=== PATIENT | male | born 1960 | race Caucasian/White ===

== ENCOUNTER 2016-07-19 06:12 | Emergency (ER) | payer MEDICARE, MEDICAID ==
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
[2016-07-19] MEDS ORDERED: LORAZEPAM INJ 2 MG/1 ML VIAL IM ONE (07:14)
[2016-07-19] MEDS ORDERED: DIPHENHYDRAMINE HCL 50 MG/ML VIAL IM ONE (07:14)
[2016-07-19 07:20] LABS: ABSOLUTE BASOPHILS # (AUTO) 0.1 10^3/uL (0.0-0.2); ABSOLUTE EOSINOPHILS # (AUTO) 0.1 10^3/uL (0.0-0.6); ABSOLUTE LYMPHOCYTES (AUTO) 1.6 10^3/uL (0.5-4.7); ABSOLUTE MONOCYTES (AUTO) 0.7 10^3/uL (0.1-1.4); ABSOLUTE NEUT (AUTO) 7.4 10^3/uL (1.7-8.2); BASOPHILS % (AUTO) 0.9 % (0-2); EOSINOPHILS % (AUTO) 1.4 % (0-6); HEMATOCRIT 48.5 % (37.9-51.0); HEMOGLOBIN 15.6 g/dL (13.5-17.0); HGB HCT DIFFERENCE -1.7; LYMPHOCYTES % (AUTO) 16.4 % (13-45); MEAN CORPUSCULAR HEMOGLOBIN 24.1 pg (27.0-33.4); MEAN CORPUSCULAR HGB CONC 32.2 g/dL (32.0-36.0); MEAN CORPUSCULAR VOLUME 75 fl (80-97); MONOCYTES % (AUTO) 6.5 % (3-13); RED BLOOD COUNT 6.48 10^6/uL (4.35-5.55); RED CELL DISTRIBUTION WIDTH 20.3 % (11.5-14.0); SEGMENTED NEUTROPHILS % (AUTO) 74.8 % (42-78); WHITE BLOOD COUNT 9.9 10^3/uL (4.0-10.5)
[2016-07-19 07:28] LABS: ALANINE AMINOTRANSFERASE 31 U/L (21-72); ALBUMIN 4.2 g/dL (3.5-5.0); ALKALINE PHOSPHATASE 273 U/L (38-126); ANION GAP 14 (5-19); ASPARTATE AMINO TRANSFERASE 42 U/L (17-59); BILIRUBIN,DIRECT 0.6 mg/dL (0.0-0.4); BLOOD UREA NITROGEN 23 mg/dL (7-20); CALCIUM 10.1 mg/dL (8.4-10.2); CARBON DIOXIDE 23 mmol/L (22-30); CHLORIDE 103 mmol/L (98-107); GLUCOSE 85 mg/dL (75-110); POTASSIUM 4.3 mmol/L (3.6-5.0); TOTAL PROTEIN 7.7 g/dL (6.3-8.2)
[2016-07-19 07:29] LABS: ALCOHOL < 10 mg/dL (NONE DETECTED)
[2016-07-19 07:49] LABS: APPEARANCE,URINE CLEAR; BILIRUBIN,URINE NEGATIVE (NEGATIVE); GLUCOSE, URINE NEGATIVE (NEGATIVE); KETONES,URINE NEGATIVE (NEGATIVE); LEUKOCYTE ESTERASE,URINE NEGATIVE (NEGATIVE); NITRITE,URINE NEGATIVE (NEGATIVE); PROTEIN,URINE >=500 mg/dL (NEGATIVE); URINE SPECIFIC GRAVITY 1.007; UROBILINOGEN,URINE NEGATIVE mg/dL (<2.0)
[2016-07-19 08:07] LABS: URINE BARBITURATES SCREEN NEGATIVE; URINE METHADONE SCREEN NEGATIVE; URINE OPIATES LOW NEGATIVE; URINE PHENCYCLIDINE SCREEN NEGATIVE
[2016-07-19] MEDS ORDERED: HALOPERIDOL LACTATE INJ 5 MG/1 ML VIAL IM ONE (09:27)
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
--- NOTE | 2016-07-19 13:38 | EKG REPORT ---
SEVERITY:- ABNORMAL ECG - SINUS RHYTHM PROBABLE LEFT ATRIAL ABNORMALITY LEFT ANTERIOR FASCICULAR BLOCK LEFT VENTRICULAR HYPERTROPHY : Confirmed by: Nasir Hernandez 19-Jul-2016 13:37:44
[2016-07-19] MEDS ORDERED: ACETAMINOPHEN 325 MG TABLET PO ONE (22:48)
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
--- NOTE | 2016-07-20 14:30 | ER Document Report ---
Doctor's Note Notes: 07/20/16 21:34 Cellulitis will be treated with keflex. Patient has no hallucinations at present, no desire to harm himself. Patient will be discharged to home.
[2016-07-20 15:52] VITALS: BP 168/87
== END 2016-07-20 16:15 | disposition home or self-care (01) ==
LOC: ER 06:12
DX: F15.10 Other stimulant abuse, uncomplicated (principal); R45.1 Restlessness and agitation; L97.229 Non-pressure chronic ulcer of left calf with unspecified severity; L03.116 Cellulitis of left lower limb; I87.8 Other specified disorders of veins; F17.210 Nicotine dependence, cigarettes, uncomplicated
CPT/HCPCS: 93005; 99285; 96372; 36415; 80307 ×4; 85025; 80053; 81001; 93010; A9270; J1200; J1630; J2060; 87040

== ENCOUNTER 2016-07-25 23:26 | Emergency (ER) | payer MEDICARE, MEDICAID ==
[2016-07-26] MEDS ORDERED: ACETAMINOPHEN 325 MG TABLET PO ONE (01:27)
[2016-07-26] MEDS ORDERED: OXYCODONE-ACETAMINOPHEN 5-325 MG TABLET PO ONE (02:16)
[2016-07-26 02:42] VITALS: BP 157/115
[2016-07-26] MEDS ORDERED: SULFAMETHOXAZOLE/TRIMETHOPRIM 800-160 MG TABLET ONE (07:08)
[2016-07-27 10:42] LABS: BLOOD UREA NITROGEN 33 mg/dL (7-20); CALCIUM 9.4 mg/dL (8.4-10.2); CREATININE RESULT 1.52 mg/dL (0.52-1.25); GLUCOSE 88 mg/dL (75-110)
[2016-07-27 10:43] LABS: ALBUMIN 3.6 g/dL (3.5-5.0); ANION GAP 9 (5-19); CARBON DIOXIDE 21 mmol/L (22-30); CHLORIDE 109 mmol/L (98-107)
[2016-07-27 10:44] LABS: ALANINE AMINOTRANSFERASE 24 U/L (21-72); ALKALINE PHOSPHATASE 253 U/L (38-126); ASPARTATE AMINO TRANSFERASE 38 U/L (17-59); BILIRUBIN,TOTAL 1.4 mg/dL (0.2-1.3)
[2016-07-27 10:45] LABS: BILIRUBIN,DIRECT 0.6 mg/dL (0.0-0.4); TOTAL PROTEIN 7.4 g/dL (6.3-8.2)
[2016-07-27 12:35] LABS: ABSOLUTE BASOPHILS # (AUTO) 0.1 10^3/uL (0.0-0.2); ABSOLUTE EOSINOPHILS # (AUTO) 0.3 10^3/uL (0.0-0.6); ABSOLUTE MONOCYTES (AUTO) 0.7 10^3/uL (0.1-1.4); ABSOLUTE NEUT (AUTO) 5.6 10^3/uL (1.7-8.2); BASOPHILS % (AUTO) 1.4 % (0-2); EOSINOPHILS % (AUTO) 3.1 % (0-6); HEMOGLOBIN 14.7 g/dL (13.5-17.0); HGB HCT DIFFERENCE -2.9; LYMPHOCYTES % (AUTO) 23.3 % (13-45); MEAN CORPUSCULAR HGB CONC 31.2 g/dL (32.0-36.0); MEAN CORPUSCULAR VOLUME 77 fl (80-97); MONOCYTES % (AUTO) 8.2 % (3-13); RED BLOOD COUNT 6.13 10^6/uL (4.35-5.55); RED CELL DISTRIBUTION WIDTH 21.2 % (11.5-14.0); WHITE BLOOD COUNT 8.7 10^3/uL (4.0-10.5)
== END 2016-07-26 07:05 | disposition home or self-care (01) ==
LOC: ER 23:26
DX: Z53.9 Procedure and treatment not carried out, unspecified reason (principal); M79.609 Pain in unspecified limb
CPT/HCPCS: 99283; 36415; 85025; 80053; A9270 ×3

== ENCOUNTER 2018-05-24 15:56 | Inpatient (IN) | payer MEDICARE, MEDICAID ==
--- NOTE | 2018-05-24 21:07 | ER Document Report ---
ED Medical Screen (RME) - General Chief Complaint: Abdominal Pain Stated Complaint: ABDOMINAL PAIN Time Seen by Provider: 05/24/18 21:06 Mode of Arrival: Ambulatory Information source: Patient Notes: PT C/O ABD PAIN, BILATERAL LEG PAIN, FOR MONTHS I have greeted and performed a rapid initial assessment of this patient. A comprehensive ED assessment and evaluation of the patient, analysis of test results and completion of the medical decision making process will be conducted by additional ED providers. TRAVEL OUTSIDE OF THE [place] IN LAST 30 DAYS: No - Related Data Allergies/Adverse Reactions: risperidone [From Risperdal] Allergy (Verified 05/24/18 15:59) trazodone Allergy (Verified 05/24/18 15:59) Past Medical History - Past Medical History Cardiac Medical History: Reports: Hx Hypertension Renal/ Medical History: Denies: Hx Peritoneal Dialysis Psychiatric Medical History: Reports: Hx Bipolar Disorder Past Surgical History: Reports: Hx Open Heart Surgery Physical Exam - Vital signs Vitals: Temp Pulse Resp BP Pulse Ox 98.5 F 96 19 169/108 H 100 05/24/18 16:30 05/24/18 16:30 05/24/18 16:30 05/24/18 16:30 05/24/18 16:30 Course - Vital Signs Vital signs: Temp Pulse Resp BP Pulse Ox 97.8 F 93 22 H 158/102 H 94 05/25/18 00:04 05/25/18 00:04 05/25/18 00:04 05/25/18 00:04 05/25/18 00:04 - Laboratory Result Diagrams: 05/24/18 21:50 05/24/18 21:50 Laboratory results interpreted by me: 05/24/18 05/24/18 05/24/18 21:50 21:50 21:50 RBC 6.11 H MCH 26.7 L RDW 21.1 H Seg Neutrophils % 78.7 H Lymphocytes % 12.2 L PT Carbon Dioxide 19 L BUN 29 H Creatinine 1.53 H Est GFR ( Amer) 57 L Est GFR (Non-Af Amer) 47 L Glucose 124 H Total Bilirubin 2.1 H Direct Bilirubin 1.1 H ALT 6 L Alkaline Phosphatase 241 H NT-Pro-B Natriuret Pep 57219 H Lipase 17.8 L Urine Protein Urine Urobilinogen 05/24/18 05/25/18 23:15 00:20 RBC MCH RDW Seg Neutrophils % Lymphocytes % PT 15.9 H Carbon Dioxide BUN Creatinine Est GFR ( Amer) Est GFR (Non-Af Amer) Glucose Total Bilirubin Direct Bilirubin ALT Alkaline Phosphatase NT-Pro-B Natriuret Pep Lipase Urine Protein >=500 H Urine Urobilinogen 2.0 H
[2018-05-24 21:56] LABS: ABSOLUTE BASOPHILS # (AUTO) 0.1 10^3/uL (0.0-0.2); ABSOLUTE EOSINOPHILS # (AUTO) 0.1 10^3/uL (0.0-0.6); ABSOLUTE LYMPHOCYTES (AUTO) 0.8 10^3/uL (0.5-4.7); ABSOLUTE MONOCYTES (AUTO) 0.5 10^3/uL (0.1-1.4); ABSOLUTE NEUT (AUTO) 5.4 10^3/uL (1.7-8.2); BASOPHILS % (AUTO) 0.9 % (0-2); EOSINOPHILS % (AUTO) 0.8 % (0-6); HEMATOCRIT 49.6 % (37.9-51.0); HEMOGLOBIN 16.3 g/dL (13.5-17.0); LYMPHOCYTES % (AUTO) 12.2 % (13-45); MEAN CORPUSCULAR HEMOGLOBIN 26.7 pg (27.0-33.4); MEAN CORPUSCULAR VOLUME 81 fl (80-97); MONOCYTES % (AUTO) 7.4 % (3-13); PLATELET COUNT 258 10^3/uL (150-450); RED BLOOD COUNT 6.11 10^6/uL (4.35-5.55); RED CELL DISTRIBUTION WIDTH 21.1 % (11.5-14.0); SEGMENTED NEUTROPHILS % (AUTO) 78.7 % (42-78); TOTAL CELLS COUNTED % (AUTO) 100 %; WHITE BLOOD COUNT 6.8 10^3/uL (4.0-10.5)
[2018-05-24 22:11] LABS: ALANINE AMINOTRANSFERASE 6 U/L (21-72); ALBUMIN 4.3 g/dL (3.5-5.0); ALKALINE PHOSPHATASE 241 U/L (38-126); ANION GAP 13 (5-19); ASPARTATE AMINO TRANSFERASE 34 U/L (17-59); BILIRUBIN,DIRECT 1.1 mg/dL (0.0-0.4); BILIRUBIN,TOTAL 2.1 mg/dL (0.2-1.3); BLOOD UREA NITROGEN 29 mg/dL (7-20); CALCIUM 10.2 mg/dL (8.4-10.2); CARBON DIOXIDE 19 mmol/L (22-30); CHLORIDE 107 mmol/L (98-107); GLUCOSE 124 mg/dL (75-110); LIPASE 17.8 U/L (23-300); POTASSIUM 4.2 mmol/L (3.6-5.0); TOTAL PROTEIN 7.6 g/dL (6.3-8.2)
[2018-05-24 23:36] LABS: INTERNATIONAL RATION (INR) 1.21; PROTHROMBIN TIME 15.9 SEC (11.4-15.4)
--- NOTE | 2018-05-24 23:52 | RADIOLOGY REPORT (SQ) ---
CT ABDOMEN PELVIS WITH IV CONTRAST HISTORY: Upper abdominal pain COMPARISON: None. TECHNIQUE: CT scan of the abdomen and pelvis with IV contrast. This exam was performed according to our departmental dose-optimization program, which includes automated exposure control, adjustment of the mA and/or kV according to patient size and/or use of iterative reconstruction technique. FINDINGS: There is atelectasis/scarring at the lung bases. No pleural or pericardial effusions. There is no hiatal hernia. The liver has a mildly nodular contour with mild perihepatic and perisplenic ascites. The gallbladder, pancreas, adrenal glands, and kidneys are no obstructing urinary stones are seen. The pelvic organs are normal. There are scattered colonic diverticula without surrounding inflammatory changes. The appendix is normal. There is no small bowel obstruction. Small amount of mesenteric ascites is present. No intraperitoneal free air. There are mild degenerative changes of the spine. The aorta is normal caliber and contains atherosclerotic calcifications. An infrarenal IVC filter is present. Mild body wall anasarca is present. IMPRESSION: 1. Query cirrhotic liver with mild abdominopelvic ascites. 2. Diverticulosis without inflammatory changes.
[2018-05-25 00:36] LABS: APPEARANCE,URINE CLEAR; BILIRUBIN,URINE NEGATIVE (NEGATIVE); COLOR,URINE AMBER; GLUCOSE, URINE NEGATIVE (NEGATIVE); KETONES,URINE NEGATIVE (NEGATIVE); LEUKOCYTE ESTERASE,URINE NEGATIVE (NEGATIVE); NITRITE,URINE NEGATIVE (NEGATIVE); PROTEIN,URINE >=500 mg/dL (NEGATIVE); URINE SPECIFIC GRAVITY 1.028
[2018-05-25] MEDS ORDERED: MORPHINE SULFATE 10 MG/ML INJ IV ONE (01:33)
--- NOTE | 2018-05-25 01:33 | ER Document Report ---
ED General - General Chief Complaint: Abdominal Pain Stated Complaint: ABDOMINAL PAIN Time Seen by Provider: 05/24/18 21:06 Mode of Arrival: Ambulatory Notes: Patient is a 57-year-old male who is a very poor historian. He presents because he had worsening swelling and pain in his abdomen as well as pain into his legs. He says that he has had the pain for several months and is been seeing his primary care doctor. He says his doctor put him on ranitidine. He denies having any imaging studies done of his abdomen. He denies any history of liver issues that he is aware of. He denies any history of alcoholism. He says he thinks he may be on a fluid pill but he again is not a very good historian and is difficult to determine if you really understands what a fluid pill is. He does have a large amount of edema and redness to his legs which patient says has been ongoing for a while but the last few days has become much worse. He denies being a diabetic. He does have history of coronary disease and has had open heart surgery for coronary bypass. TRAVEL OUTSIDE OF THE [place] IN LAST 30 DAYS: No - Related Data Allergies/Adverse Reactions: risperidone [From Risperdal] Allergy (Verified 05/24/18 15:59) trazodone Allergy (Verified 05/24/18 15:59) Past Medical History - General Information source: Patient - Social History Smoking Status: Unknown if Ever Smoked Frequency of alcohol use: None Drug Abuse: None Family History: Reviewed & Not Pertinent Patient has suicidal ideation: No Patient has homicidal ideation: No - Past Medical History Cardiac Medical History: Reports: Hx Hypertension Renal/ Medical History: Denies: Hx Peritoneal Dialysis Psychiatric Medical History: Reports: Hx Bipolar Disorder Past Surgical History: Reports: Hx Open Heart Surgery Review of Systems - Review of Systems Notes: My Normal Review Basic REVIEW OF SYSTEMS: CONSTITUTIONAL : Denies fever, chills, or sweats. Denies recent illness. EENT: Denies eye, ear, throat, or mouth pain or symptoms. Denies nasal or sinus congestion. CARDIOVASCULAR: Denies chest pain. RESPIRATORY: Denies cough, cold, or chest congestion. Denies shortness of breath, difficulty breathing, or wheezing. GASTROINTESTINAL: Upper abdominal pain. Nausea. GENITOURINARY: Denies difficulty urinating, painful urination, burning, frequency, or blood in urine. MUSCULOSKELETAL: Large amount of swelling and edema in legs. SKIN: Denies rash or skin lesions. NEUROLOGICAL: Denies altered mental status or loss of consciousness. Denies headache. Denies weakness or paralysis or loss of use of either side. Denies problems with gait or speech. Denies sensory or motor loss. ALL OTHER SYSTEMS REVIEWED AND NEGATIVE. Physical Exam - Vital signs Vitals: Temp Pulse Resp BP Pulse Ox 98.5 F 96 19 169/108 H 100 05/24/18 16:30 05/24/18 16:30 05/24/18 16:30 05/24/18 16:30 05/24/18 16:30 - Notes Notes: General Appearance: Well nourished, alert, cooperative, no acute distress, mild to moderate obvious discomfort. Vitals: reviewed, See vital signs table. Head: no swelling or tenderness to the head Eyes: PERRL, EOMI, Conjuctiva clear Mouth: No decreasd moisture Throat: No tonsillar inflammation, No airway obstruction, No lymphadenopathy Neck: Supple, no neck tenderness, No thyromegaly Chest wall: Sternal scar over chest wall from previous coronary bypass surgery. Lungs: No wheezing, No rales, No rhonci, No accessory muscle use, good air exchange bilaterally. Heart: Normal rate, Regular rythm, No murmur, no rub Abdomen: Normal BS, soft, No rigidity, abdomen is edematous. Patient has some pain to palpation of the upper abdomen that is mainly in epigastric region. Extremities: Skin on legs is red and scaly related to chronic edema in the legs. Capillary refill in the toes is slightly delayed. Patient does have 3+ pitting edema in bilateral lower extremities. Bilateral dorsalis pedis pulses are 1+. Posterior tibial pulses are 1+ as well. Skin: warm, dry, appropriate color, no rash Neuro: speech clear, oriented x 3, normal affect, responds appropriately to questions. Course - Re-evaluation Re-evalutation: 05/25/18 04:25 Patient has upper abdominal pain. I did obtain a CT scan which just shows evidence of cirrhosis of the liver which makes sense with his overwhelming amount of edema in both his abdomen and his lower extremities. I have ordered Lasix. I once again asked him about history of alcohol abuse and he denies. Patient did have a indeterminate troponin. I therefore did repeat this to make sure that is not up trending. The troponin is actually downtrending. He does have a large amount edema his lower extremity. He does have slightly delayed capillary refill. He does have dorsalis pedis pulses. They are slightly diminished at 1+. I suspect he probably does have some underlying arteriovascular disease in his lower extremities however a lot of this may also be related to the large amount of edema in his feet making it difficult to palpate his pulses. Patient says that the redness in his legs and scaling of the skin is chronic and has been ongoing for years. Patient says edema in his legs to come to the point where he cannot bear weight or walk well. I suspect this is true based on the amount of edema in his lower extremity exams. Due to his large amount of edema, elevated BNP, cirrhosis, and failure of outpatient treatment feels appropriate to admit him for further treatment. I did speak wi th the hospitalist, Dr. Barker, who agrees to evaluate the patient for admission. Dictation of this chart was performed using voice recognition software; therefore, there may be some unintended grammatical errors. - Vital Signs Vital signs: Temp Pulse Resp BP Pulse Ox 98.2 F 90 18 158/99 H 92 05/25/18 05:33 05/25/18 05:33 05/25/18 05:33 05/25/18 05:33 05/25/18 05:33 - Laboratory Result Diagrams: 05/24/18 21:50 05/24/18 21:50 Laboratory results interpreted by me: 05/24/18 05/24/18 05/24/18 21:50 21:50 21:50 RBC 6.11 H MCH 26.7 L RDW 21.1 H Seg Neutrophils % 78.7 H Lymphocytes % 12.2 L PT Carbon Dioxide 19 L BUN 29 H Creatinine 1.53 H Est GFR ( Amer) 57 L Est GFR (Non-Af Amer) 47 L Glucose 124 H Total Bilirubin 2.1 H Direct Bilirubin 1.1 H ALT 6 L Alkaline Phosphatase 241 H NT-Pro-B Natriuret Pep 78812 H Lipase 17.8 L TSH Urine Protein Urine Urobilinogen 05/24/18 05/24/18 05/25/18 23:15 23:15 00:20 RBC MCH RDW Seg Neutrophils % Lymphocytes % PT 15.9 H Carbon Dioxide BUN Creatinine Est GFR ( Amer) Est GFR (Non-Af Amer) Glucose Total Bilirubin Direct Bilirubin ALT Alkaline Phosphatase NT-Pro-B Natriuret Pep Lipase TSH 5.96 H Urine Protein >=500 H Urine Urobilinogen 2.0 H - EKG Interpretation by Me Additional EKG results interpreted by me: 05/25/18 01:32 EKG is reviewed and interpreted by me. EKG shows sinus rhythm with a rate of [address] segment elevation or depression. Patient has slight T wave inversion in lead aVL. This is consistent with previous EKG from July 19, 2016. WA interval is within normal range. QRS duration and QT intervals are p rolonged. Discharge - Discharge Clinical Impression: Venous stasis, Hepatic congestion Abdominal pain Qualifiers: Abdominal location: epigastric Qualified Code(s): R10.13 - Epigastric pain Condition: Stable Disposition: ADMITTED INPATIENT Admitting Provider: Hospitalist Unit Admitted: Telemetry
[2018-05-25] MEDS ORDERED: FUROSEMIDE INJ/PF 40 MG/4 ML SDV IV ONE (02:14)
[2018-05-25] MEDS ORDERED: IPRATROPIUM/ALBUTEROL 0.5-2.5 MG/3 ML AMPUL NEB PRN (02:16)
[2018-05-25] MEDS ORDERED: MAGNESIUM HYDROXIDE SUSP 30 ML UDCUP PO PRN (02:16)
[2018-05-25] MEDS ORDERED: PHYTONADIONE INJ 10 MG/1 ML AMPULE SUBCUT ONE (02:16)
[2018-05-25] MEDS ORDERED: FENTANYL CITRATE INJ/PF 100 MCG/2 ML AMPUL IV ONE (02:18)
[2018-05-25] MEDS ORDERED: ONDANSETRON HCL INJ/PF 4 MG/2 ML SDV IV ONE (02:18)
[2018-05-25] MEDS ORDERED: FOLIC ACID 1 MG TABLET PO ONE (02:21)
[2018-05-25] MEDS: MAG HYDROX/AL HYDROX/SIMETH SUSP 30 ML UDCUP PO PRN (02:57)
[2018-05-25 03:25] LABS: URINE AMPHETAMINES SCREEN NEGATIVE; URINE BARBITURATES SCREEN NEGATIVE; URINE BENZODIAZEPINES SCREEN NEGATIVE; URINE COCAINE SCREEN NEGATIVE; URINE MARIJUANA (THC) SCREEN NEGATIVE; URINE METHADONE SCREEN NEGATIVE; URINE PHENCYCLIDINE SCREEN NEGATIVE
[2018-05-25] MEDS ORDERED: LORAZEPAM INJ 2 MG/1 ML VIAL IV ONE (04:10)
[2018-05-25] MEDS ORDERED: QUETIAPINE FUMARATE 600 MG PO SCH (04:15)
[2018-05-25] MEDS: LISINOPRIL 10 MG TABLET PO SCH ×2 (04:50→09:47)
[2018-05-25] MEDS: HYDRALAZINE HCL INJ/PF 20 MG/1 ML SDV IV PRN (04:50)
[2018-05-25] MEDS: THIAMINE HCL 100 MG TABLET PO SCH ×2 (04:50→10:23)
[2018-05-25] MEDS ORDERED: PROPRANOLOL HCL 10 MG TABLET ONE (05:08)
[2018-05-25] MEDS: QUETIAPINE FUMARATE 25 MG TABLET PO SCH ×2 (05:28→10:38)
[2018-05-25] MEDS: PROPRANOLOL HCL 10 MG TABLET PO SCH ×2 (05:30→10:22)
[2018-05-25] MEDS ORDERED: UREA 20% CREAM 85 GM TUBE TP ONE (06:46)
--- NOTE | 2018-05-25 07:00 | PDOC H&P ---
History of Present Illness Admission Date/PCP: 05/25/18 02:50 Patient complains of: Shortness of breath and leg swelling History of Present Illness: JUJU ANDRADE is a 57 year old male who is an extraordinarily poor historian who admits congestive heart failure, hypertension, chronic intermittent leg swelling and recent discontinuation of unknown medications. In the emergency room he has uncontrolled hypertension, hypoxia, tachycardia, tachypnea, abdominal distention bilateral lower extremity edema with chronic changes and a BNP of 11,000 and elevated cardiac enzymes. He receives IV morphine and Lasix then referred to the hospitalist for admission. Patient denies chest pain Past Medical History Cardiac Medical History: Reports: Congestive Heart Failure, Hypertension Skin Medical History: Reports: Other - Chronic venous stasis with hyperkeratosis Psychiatric Medical History: Reports: Bipolar Disorder Past Surgical History Past Surgical History: Reports: Coronary Artery Bypass Graft, Valve Replacement Social History Information Source: Patient Smoking Status: Unknown if Ever Smoked - Advance Directive Resuscitation Status: Full Code Family History Family History: Hypertension Parental Family History Reviewed: Yes Children Family History Reviewed: Yes Sibling(s) Family History Reviewed.: Yes Medication/Allergy Home Medications: Albuterol Sulfate [Ventolin 0.083% Neb 2.5 mg/3 mL Ampul] 1 vial IH TID 05/25/18 Duloxetine HCl 60 mg PO BID 05/25/18 Lisinopril [Prinivil 40 mg Tablet] 40 mg PO DAILY 05/25/18 Propranolol HCl [Inderal 10 mg Tablet] 20 mg PO BID PRN 05/25/18 Quetiapine Fumarate [Quetiapine Fumarate ER] 50 mg PO DAILY 05/25/18 Quetiapine Fumarate [Quetiapine Fumarate ER] 600 mg PO QHS 05/25/18 Ranitidine HCl 300 mg PO DAILY 05/25/18 Allergies/Adverse Reactions: risperidone [From Risperdal] Allergy (Verified 05/24/18 15:59) trazodone Allergy (Verified 05/24/18 15:59) Review of Systems ROS unobtainable: Due to mental status Physical Exam Vital Signs: Temp Pulse Resp BP Pulse Ox 98.2 F 90 18 158/99 H 92 05/25/18 05:33 05/25/18 05:33 05/25/18 05:33 05/25/18 05:33 05/25/18 05:33 Intake & Output 05/23/18 05/24/18 05/25/18 11:59 11:59 11:59 Output Total 400 Balance -400 Weight 105.9 kg General appearance: PRESENT: cooperative, disheveled, severe distress Head exam: PRESENT: atraumatic, normocephalic Eye exam: PRESENT: conjunctiva pink, EOMI, PERRLA. ABSENT: scleral icterus Ear exam: PRESENT: normal external ear exam Mouth exam: PRESENT: moist. ABSENT: dry mucosa, laceration Neck exam: PRESENT: JVD. ABSENT: meningismus, tenderness, tracheal deviation Respiratory exam: PRESENT: accessory muscle use, crackles, prolonged expiratory phas, rales, retraction, symmetrical, tachypnea Cardiovascular exam: PRESENT: gallop, +S2, systolic murmur, tachycardia Pulses: PRESENT: normal dorsalis pedis pul Vascular exam: PRESENT: normal capillary refill GI/Abdominal exam: PRESENT: normal bowel sounds, soft. ABSENT: distended, guarding, mass, organolmegaly, rebound, tenderness Rectal exam: PRESENT: deferred Extremities exam: PRESENT: full ROM. ABSENT: calf tenderness, clubbing, pedal edema Neurological exam: PRESENT: alert, altered, awake, oriented to person, oriented to place, oriented to situation, CN II-XII grossly intact Psychiatric exam: PRESENT: appropriate affect, normal mood, unusual affect. ABSENT: homicidal ideation, suicidal ideation Skin exam: PRESENT: dry, intact, mottled, pallor, warm. ABSENT: cyanosis, normal color, rash Results Laboratory Results: 05/24/18 21:50 05/24/18 21:50 05/24/18 05/24/18 05/24/18 21:50 21:50 23:15 WBC 6.8 RBC 6.11 H Hgb 16.3 Hct 49.6 MCV 81 MCH 26.7 L MCHC 33.0 RDW 21.1 H Plt Count 258 Seg Neutrophils % 78.7 H Lymphocytes % 12.2 L Monocytes % 7.4 Eosinophils % 0.8 Basophils % 0.9 Absolute Neutrophils 5.4 Absolute Lymphocytes 0.8 Absolute Monocytes 0.5 Absolute Eosinophils 0.1 Absolute Basophils 0.1 Sodium 139.0 Potassium 4.2 Chloride 107 Carbon Dioxide 19 L Anion Gap 13 BUN 29 H Creatinine 1.53 H Est GFR ( Amer) 57 L Est GFR (Non-Af Amer) 47 L Glucose 124 H Calcium 10.2 Total Bilirubin 2.1 H AST 34 ALT 6 L Alkaline Phosphatase 241 H Total Protein 7.6 Albumin 4.3 Lipase 17.8 L TSH 5.96 H Urine Color Urine Appearance Urine pH Ur Specific [place] Urine Protein Urine Glucose (UA) Urine Ketones Urine Blood Urine Nitrite Ur Leukocyte Esterase Urine WBC (Auto) Urine RBC (Auto) 05/25/18 00:20 WBC RBC Hgb Hct MCV MCH MCHC RDW Plt Count Seg Neutrophils % Lymphocytes % Monocytes % Eosinophils % Basophils % Absolute Neutrophils Absolute Lymphocytes Absolute Monocytes Absolute Eosinophils Absolute Basophils Sodium Potassium Chloride Carbon Dioxide Anion Gap BUN Creatinine Est GFR ( Amer) Est GFR (Non-Af Amer) Glucose Calcium Total Bilirubin AST ALT Alkaline Phosphatase Total Protein Albumin Lipase TSH Urine Color RANDALL Urine Appearance CLEAR Urine pH 5.0 Ur Specific [place] 1.028 Urine Protein >=500 H Urine Glucose (UA) NEGATIVE Urine Ketones NEGATIVE Urine Blood NEGATIVE Urine Nitrite NEGATIVE Ur Leukocyte Esterase NEGATIVE Urine WBC (Auto) 1 Urine RBC (Auto) 1 05/24/18 05/24/18 05/24/18 21:50 21:50 23:15 Troponin I 0.103 0.088 NT-Pro-B Natriuret Pep 99800 H 05/25/18 05:20 Troponin I 0.106 NT-Pro-B Natriuret Pep Impressions: Abdomen/Pelvis CT 05/24/18 22:32 IMPRESSION: 1. Query cirrhotic liver with mild abdominopelvic ascites. 2. Diverticulosis without inflammatory changes. Assessment & Plan - Diagnosis (1) Acute exacerbation of congestive heart failure Is this a current diagnosis for this admission?: Yes Plan: Complicated by valve surgery, follow-up 2D echo, congestive heart failure exacerbation care set, gentle diuresis (2) COPD (chronic obstructive pulmonary disease) Is this a current diagnosis for this admission?: Yes Plan: Albuterol and Atrovent, supplemental oxygen, BiPAP as needed (3) Hepatic congestion Is this a current diagnosis for this admission?: Yes Plan: Gentle diuresis, consider imaging for Budd-Chiari if cardiac echo unremarkable (4) Venous stasis Is this a current diagnosis for this admission?: Yes Plan: Urea, elevation and TALHA stockings - Time Time Spent: 50 to 70 Minutes - Inpatient Certification Medical Necessity: Need Close Monitoring Due to Risk of Patient Decompensation
--- NOTE | 2018-05-25 07:38 | EKG REPORT ---
SEVERITY:- ABNORMAL ECG - SINUS RHYTHM VEENA, CONSIDER BIATRIAL ABNORMALITIES LEFT ANTERIOR FASCICULAR BLOCK LEFT VENTRICULAR HYPERTROPHY CONSIDER ANTERIOR INFARCT : Confirmed by: Alvaro Bowden MD 25-May-2018 07:37:44
--- NOTE | 2018-05-25 09:28 | PROGRESS NOTE E ---
Progress Note NAME: JUJU ANDRADE : 1960 AGE: 57Y DATE: 05/25/2018 ROOM: 415 SUBJECTIVE: The patient is a pleasant 57-year-old male who had a past medical history of congestive heart failure, chronic intermittent swelling of the lower extremities, hypertension, admitted with shortness of breath and edema secondary to congestive heart failure. The patient was treated with Lasix, received morphine also in ER. When I saw him this morning, he was very lethargic, sleepy. OBJECTIVE: GENERAL: Patient lying in bed. He is very drowsy, sleepy, lethargic. VITAL SIGNS: Blood pressure is 158/99, temperature 98.2, heart rate 90, saturation 92% room air. HEENT: Head normocephalic, atraumatic. Pupils round, reactive to light and accommodation bilaterally. Extraocular movements intact. Ears: Tympanic membranes intact bilaterally. No discharge from the ears. No discharge from the nose. NECK: Supple. No increased JVD. No thyromegaly. No lymphadenopathy. CARDIOVASCULAR: Normal S1, S2. Regular rate and rhythm. Bilateral crackles. ABDOMEN: Obese. MUSCULOSKELETAL: +2 edema. LABORATORY: Sodium 139, potassium 4.2, chloride is 107, CO2 of 19, creatinine 1.5. CT scan of abdomen questionable liver cirrhosis, ascites, diverticulosis. ASSESSMENT AND PLAN: 1. ACUTE EXACERBATION OF CONGESTIVE HEART FAILURE. Continue Lasix. Will get echocardiogram. 2. COPD, STABLE. Continue albuterol, oxygen BiPAP as needed. 3. HEPATIC CONGESTION, QUESTIONABLE LIVER CIRRHOSIS ON CT SCAN. Will check ammonia level. 4. HYPERTENSION, CONTROLLED. 5. CHRONIC KIDNEY DISEASE STAGE 3. MEDICAL NECESSITY: The patient needs to stay for treatment of congestive heart failure. He is on Lasix IV. DICTATING PHYSICIAN: ALEXSANDER NAVARRO M.D. [id number] PHY#: [id number] ID: [id number] JOB#: [id number] ACCT: [id number] cc: >
[2018-05-25] MEDS: DULOXETINE HCL 30 MG CAPSULE.DR PO SCH ×2 (09:47→17:49)
[2018-05-25] MEDS: DOCUSATE SODIUM 100 MG CAPSULE PO SCH ×2 (09:48→17:48)
[2018-05-25] MEDS: SPIRONOLACTONE 25 MG TABLET PO SCH ×2 (09:48→17:48)
[2018-05-25] MEDS ORDERED: FUROSEMIDE INJ/PF 40 MG/4 ML SDV IV SCH (10:00)
[2018-05-25] MEDS: HEPARIN SOD (PORCINE) 5,000 UNIT/ML 1 ML SYRINGE SUBCUT SCH ×3 (10:17→21:14)
--- NOTE | 2018-05-25 10:21 | XCELERA REPORT ---
[address] [address] Transthoracic Echocardiogram Report Name: JUJU ANDRADE Age: 57 yrs Gender: Male : 1960 Patient Status: Inpatient Patient Location: [facility]^A Study Date: 05/25/2018 09:07 AM Height: 76 in Weight: 233 lb BSA: 2.4 m2 Reason For Study: systolic murmur Ordering Physician: LUIS MOSES Performed By: Pranav Loyola Interpretation Summary Suboptimal study with many poor images limiting detailed cardiac evaluation. Lack of contrast opacification limits evaluation of LVEF, wall motion, chambers and ruling out intracardiac thrombus/mass. LV not well visualized but visually LVEF appears moderatley decreased at 35- 40%. For more acccurate EF estimation recommend contrast enhanced echo/ MUGA scan. RV visually appears mildly dilated with RV systolic function moderate to severely decreased. The transmitral spectral Doppler flow pattern is abnormal for age Flattened septum is consistent with RV pressure overload There is a mild to moderate amount of tricuspid regurgitation There is no pericardial effusion. The aortic root is normal size. The inferior vena cava appeared small and collapsed with respiration (RAP 0-5 mmHg) Best estimated right ventricular systolic pressure is elevated at 40-50mmHg. MMode/2D Measurements & Calculations RVDd: 3.6 cm LVIDd: 5.3 cm FS: 17.5 % Ao root diam: 3.5 cm IVSd: 0.52 cm LVIDs: 4.4 cm EDV(Teich): 136.3 ml LVPWd: 1.1 cm ESV(Teich): 87.1 ml Ao root area: 9.4 cm2 LA dimension: 3.7 cm EF(Teich): 36.1 % LVOT diam: 1.5 cm LVOT area: 1.7 cm2 Doppler Measurements & Calculations MV E max lenin: MV P1/2t max lenin: Ao V2 max: LV V1 max P.3 cm/sec 69.2 cm/sec 84.9 cm/sec 2.1 mmHg MV A max lenin: MV P1/2t: 96.8 msec Ao max P.9 mmHg LV V1 max: 97.2 cm/sec MVA(P1/2t): 2.3 cm2 CHELLY(V,D): 1.5 cm2 73.1 cm/sec MV E/A: 0.57 MV dec slope: 209.5 cm/sec2 MV dec time: 0.10 sec PA V2 max: TR max lenin: MV P1/2t-pr_phl: 69.2 cm/sec 313.6 cm/sec 96.8 msec PA max P.9 mmHgTR max P.3 mmHg Left Ventricle The left ventricle is not well visualized. Left ventricular systolic function is moderately reduced. The transmitral spectral Doppler flow pattern is abnormal for age. Flattened septum is consistent with RV pressure overload. Right Ventricle The right ventricular systolic function is moderate to severely reduced. Atria Right atrium not well visualized secondary to technical limitations. The left atrium is not well visualized secondary to technical limitations. Mitral Valve MV leafletys appear focally thickened with rpeserved opening. Aortic Valve There is a peak gradient of 3 mm of Hg. AV Vmax 85.4 cm/sec. Tricuspid Valve The tricuspid valve is not well visualized secondary to technical limitations. There is a mild to moderate amount of tricuspid regurgitation. Best estimated right ventricular systolic pressure is elevated at 40-50mmHg. Pulmonic Valve The pulmonic valve is not well visualized. Great Vessels The aortic root is normal size. The inferior vena cava appeared small and collapsed with respiration (RAP 0-5 mmHg). Effusions There is no pericardial effusion. : LUIS MOSES > Nestor Guerra
[2018-05-25] MEDS ORDERED: ASPIRIN 325 MG TABLET ONE (13:07)
[2018-05-25] MEDS ORDERED: NITROGLYCERIN 0.4 MG/TAB 25 TAB/BOTTLE SL PRN (13:42)
--- NOTE | 2018-05-25 15:28 | PDOC CONSULTATION ---
Consultation Consult Date: 05/25/18 Consult reason:: Elevated troponin History of Present Illness Admission Date/PCP: 05/25/18 02:50 History of Present Illness: JUJU ANDRADE is a 57 year old male with past medical history of hypertension, cigarette smoking who was admitted initially with upper abdominal pain and subsequently on lab work elevated proBNP level and cardiac biomarkers were obtained. Cardiology team was consulted for elevated troponin levels. Patient is a poor historian but is able to tell me that he has previously been treated at [facility] for some heart condition and has had surgery on his heart twice but is unable to confirm details of the surgery. He does admit to some valve surgery and claims that he was told that if he had a third surgery he would not make it through it. He denies any chest pain but is visibly short of breath and also gives a history of swelling in his legs. He is not very ambulatory but is still living by himself. He claims that he smokes cigarettes but unable to tell exactly how much he smokes. He denies alcohol abuse. We will request records from [facility] as very limited history could be obtained from the patient. Past Medical History Cardiac Medical History: Reports: Congestive Heart Failure, Hypertension Skin Medical History: Reports: Other - Chronic venous stasis with hyperkeratosis Psychiatric Medical History: Reports: Bipolar Disorder Past Surgical History Past Surgical History: Reports: Coronary Artery Bypass Graft, Valve Replacement Social History Smoking Status: Current Some Day Smoker - Advance Directive Resuscitation Status: Full Code Family History Family History: Reviewed & Not Pertinent Parental Family History Reviewed: Yes Children Family History Reviewed: No Sibling(s) Family History Reviewed.: Yes Medication/Allergy Home Medications: Albuterol Sulfate [Proair HFA Inhalation Aerosol 8.5 gm MDI] 2 puff IH Q4HP PRN 05/25/18 Albuterol Sulfate [Ventolin 0.083% Neb 2.5 mg/3 mL Ampul] 1 vial IH Q8 05/25/18 Duloxetine HCl 60 mg PO Q12 05/25/18 Furosemide [Lasix 20 mg Tablet] 20 mg PO DAILY 05/25/18 Lisinopril [Prinivil 40 mg Tablet] 40 mg PO DAILY 05/25/18 Potassium Chloride [Klor-Con M20] 20 meq PO DAILY 05/25/18 Propranolol HCl [Inderal 10 mg Tablet] 20 mg PO Q12 05/25/18 Quetiapine Fumarate [Quetiapine Fumarate ER] 150 mg PO QHS 05/25/18 Quetiapine Fumarate [Quetiapine Fumarate ER] 600 mg PO QHS 05/25/18 Ranitidine HCl 300 mg PO DAILY 05/25/18 Allergies/Adverse Reactions: risperidone [From Risperdal] Allergy (Verified 05/24/18 15:59) trazodone Allergy (Verified 05/24/18 15:59) Review of Systems ROS unobtainable: Other - History of presenting illness is limited because of patient being a poor historian. Constitutional: PRESENT: weakness Cardiovascular: PRESENT: dyspnea on exertion, edema Respiratory: PRESENT: dyspnea Gastrointestinal: PRESENT: abdominal pain, nausea Physical Exam Vital Signs: Temp Pulse Resp BP Pulse Ox 97.3 F 64 16 126/71 H 93 05/25/18 11:10 05/25/18 11:10 05/25/18 11:10 05/25/18 11:10 05/25/18 11:10 Intake & Output 05/24/18 05/25/18 05/26/18 06:59 06:59 06:59 Intake Total 884 Output Total 400 1200 Balance -400 -316 Weight 105.9 kg General appearance: PRESENT: mild distress Neck exam: PRESENT: JVD Respiratory exam: PRESENT: crackles, decreased breath sounds Pulses: PRESENT: other - Distal peripheral pulses not palpable with cold feet and scaly rash on both lower extremities. Extremities exam: PRESENT: other - No pitting pedal edema noted. Neurological exam: PRESENT: alert, awake Results Laboratory Results: 05/24/18 21:50 05/24/18 21:50 05/24/18 05/24/18 05/24/18 21:50 21:50 23:15 WBC 6.8 RBC 6.11 H Hgb 16.3 Hct 49.6 MCV 81 MCH 26.7 L MCHC 33.0 RDW 21.1 H Plt Count 258 Seg Neutrophils % 78.7 H Lymphocytes % 12.2 L Monocytes % 7.4 Eosinophils % 0.8 Basophils % 0.9 Absolute Neutrophils 5.4 Absolute Lymphocytes 0.8 Absolute Monocytes 0.5 Absolute Eosinophils 0.1 Absolute Basophils 0.1 Sodium 139.0 Potassium 4.2 Chloride 107 Carbon Dioxide 19 L Anion Gap 13 BUN 29 H Creatinine 1.53 H Est GFR ( Amer) 57 L Est GFR (Non-Af Amer) 47 L Glucose 124 H Calcium 10.2 Total Bilirubin 2.1 H AST 34 ALT 6 L Alkaline Phosphatase 241 H Total Protein 7.6 Albumin 4.3 Lipase 17.8 L TSH 5.96 H Urine Color Urine Appearance Urine pH Ur Specific [place] Urine Protein Urine Glucose (UA) Urine Ketones Urine Blood Urine Nitrite Ur Leukocyte Esterase Urine WBC (Auto) Urine RBC (Auto) 05/25/18 00:20 WBC RBC Hgb Hct MCV MCH MCHC RDW Plt Count Seg Neutrophils % Lymphocytes % Monocytes % Eosinophils % Basophils % Absolute Neutrophils Absolute Lymphocytes Absolute Monocytes Absolute Eosinophils Absolute Basophils Sodium Potassium Chloride Carbon Dioxide Anion Gap BUN Creatinine Est GFR ( Amer) Est GFR (Non-Af Amer) Glucose Calcium Total Bilirubin AST ALT Alkaline Phosphatase Total Protein Albumin Lipase TSH Urine Color RANDALL Urine Appearance CLEAR Urine pH 5.0 Ur Specific [place] 1.028 Urine Protein >=500 H Urine Glucose (UA) NEGATIVE Urine Ketones NEGATIVE Urine Blood NEGATIVE Urine Nitrite NEGATIVE Ur Leukocyte Esterase NEGATIVE Urine WBC (Auto) 1 Urine RBC (Auto) 1 05/24/18 05/24/18 05/24/18 21:50 21:50 23:15 Troponin I 0.103 0.088 NT-Pro-B Natriuret Pep 93638 H 05/25/18 05/25/18 05:20 11:44 Troponin I 0.106 0.385 NT-Pro-B Natriuret Pep Impressions: Abdomen/Pelvis CT 05/24/18 22:32 IMPRESSION: 1. Query cirrhotic liver with mild abdominopelvic ascites. 2. Diverticulosis without inflammatory changes. Assessment & Plan - Diagnosis (1) Acute exacerbation of congestive heart failure Qualifiers: Heart failure type: combined systolic and diastolic Qualified Code(s): I50.43 - Acute on chronic combined systolic (congestive) and diastolic (congestive) heart failure Is this a current diagnosis for this admission?: Yes (2) Hypertension Qualifiers: Hypertension type: essential hypertension Qualified Code(s): I10 - Essential (primary) hypertension (3) Elevated troponin Is this a current diagnosis for this admission?: Yes (4) CKD (chronic kidney disease) Qualifiers: Chronic kidney disease stage: unspecified stage Qualified Code(s): N18.9 - Chronic kidney disease, unspecified - Notes Notes: Reviewed EKG, labs, telemetry and imaging test. Patient with volume excess on exam with jugular venous distention and likely ascites secondary to hepatic congestion and elevated right heart pressures. Echocardiogram shows suboptimal to poor quality images with limited evaluation of valves and LVEF appears 35-40% with RV systolic dysfunction. It is likely that most of these changes are chronic but will need to review electronic medical records from [facility] to confirm that. Will recommend aggressive intravenous diuresis with close intake output monitoring. Agree with switching beta-laurie from propranolol to metoprolol. He will need ischemia evaluation at some point but at this point of time will initially try to correct his volume status. Mildly elevated troponin level likely secondary to cardiomyopathy rather than acute coronary syndrome. Will also need evaluation for peripheral arterial disease and will recommend an arterial Doppler of the lower extremities. Continue pa tient on aspirin, consider statin therapy, continue beta-laurie and diuretics. Will follow closely with you. Further recommendations after review of electronic medical records from [facility]. - Time Time Spent: Greater than 70 Minutes
[2018-05-25] MEDS: METOPROLOL TARTRATE 25 MG TABLET PO SCH (17:48)
[2018-05-25] MEDS: ACETAMINOPHEN 325 MG TABLET PO PRN (17:58)
[2018-05-25 18:28] LABS: ARTERIAL BLOOD BASE EXCESS -2.4 mmol/L; ARTERIAL BLOOD H2CO3 1.02 mmol/L (1.05-1.35); ARTERIAL BLOOD HCO3 21.2 mmol/L (20-24); ARTERIAL BLOOD O2 SATURATION 94.2 % (94-98); ARTERIAL BLOOD PCO2 33.8 mmHg (35-45); ARTERIAL BLOOD PH 7.42 (7.35-7.45); ARTERIAL BLOOD PO2 68.6 mmHg (80-100); ARTERIAL BLOOD TOTAL CO2 22.3 mmol/L (23-27)
[2018-05-25 18:31] LABS: ARTERIAL BLOOD FIO2 2L
--- NOTE | 2018-05-25 18:47 | RADIOLOGY REPORT (SQ) ---
EXAM DESCRIPTION: CT HEAD WITHOUT COMPLETED DATE/TIME: 05/25/2018 6:35 pm REASON FOR STUDY: AMS COMPARISON: None. TECHNIQUE: Axial images acquired through the brain without intravenous contrast. Images reviewed wi th bone, brain and subdural windows. Additional sagittal and coronal reconstructions were generated. Images stored on PACS. All CT scanners at this facility use dose modulation, iterative reconstruction, and/or weight based d osing when appropriate to reduce radiation dose to as low as reasonably achievable (ALARA). [facility]: Dose Right [facility]: CareDose [facility]: Dose Right [facility]: Teradose 4D [facility]: PacerPro RADIATION DOSE: CT Rad equipment meets quality standard of care and radiation dose reduction techniq ues were employed. CTDIvol: 53.2 mGy. DLP: 1017 mGy-cm. mGy. LIMITATIONS: None. FINDINGS: VENTRICLES: Normal size and contour. CEREBRUM: No masses. No hemorrhage. No midline shift. No evidence for acute infarction. Normal gra y/white matter differentiation. No areas of low density in the white matter. Prominent perivascular space of the left basal ganglia. CEREBELLUM: No masses. No hemorrhage. No alteration of density. No evidence for acute infarction. EXTRAAXIAL SPACES: No fluid collections. No masses. ORBITS AND GLOBE: No intra- or extraconal masses. Normal contour of globe without masses. CALVARIUM: No fracture. PARANASAL SINUSES: No fluid or mucosal thickening. SOFT TISSUES: No mass or hematoma. OTHER: No other significant finding. IMPRESSION: NO ACUTE INTRACRANIAL IMAGING FINDINGS. EVIDENCE OF ACUTE STROKE: NO. COMMENT: Quality ID # [id number]: Final reports with documentation of one or more dose reduction techniques (e.g., Automated exposure control, adjustment of the mA and/or kV according to patient size, use of iterative reconstruction technique) TECHNICAL DOCUMENTATION: JOB ID: [id number] [employer] All Rights Reserved Reading location - IP/workstation name: [email or web address]
--- NOTE | 2018-05-25 19:08 | RADIOLOGY REPORT (SQ) ---
EXAM DESCRIPTION: CHEST SINGLE VIEW COMPLETED DATE/TIME: 05/25/2018 6:44 pm REASON FOR STUDY: SOB COMPARISON: None. EXAM PARAMETERS: NUMBER OF VIEWS: One view. TECHNIQUE: Single frontal radiographic view of the chest acquired. RADIATION DOSE: NA LIMITATIONS: None. FINDINGS: LUNGS AND PLEURA: No opacities, masses or pneumothorax. No pleural effusion. MEDIASTINUM AND HILAR STRUCTURES: There is a rounded masslike opacity involving the left mediastinal border at the AP window. HEART AND VASCULAR STRUCTURES: The cardiac silhouette is normal for AP technique. No vascular conges tion. BONES: No acute findings. HARDWARE: None in the chest. OTHER: No other significant finding. IMPRESSION: Abnormal mediastinal contour at the AP window is nonspecific, and may represent unilater al pulmonary artery enlargement, left hilar lymphadenopathy, mass, or other. TECHNICAL DOCUMENTATION: JOB ID: [id number] [employer]- All Rights Reserved Reading location - IP/workstation name: [email or web address]
[2018-05-25] MEDS: FUROSEMIDE INJ/PF 40 MG/4 ML SDV IV SCH (21:10)
[2018-05-25] MEDS: ENOXAPARIN SODIUM INJ 100 MG/1 ML DISP.SYRIN SUBCUT SCH (21:11)
[2018-05-25] MEDS ORDERED: METOPROLOL TARTRATE 25 MG TABLET PO SCH (22:00)
[2018-05-26] MEDS: MAG HYDROX/AL HYDROX/SIMETH SUSP 30 ML UDCUP PO PRN (05:20)
[2018-05-26] MEDS: METOPROLOL TARTRATE 25 MG TABLET PO SCH ×2 (05:20→18:55)
[2018-05-26] MEDS: ACETAMINOPHEN 325 MG TABLET PO PRN ×2 (05:21→10:51)
[2018-05-26] MEDS: HEPARIN SOD (PORCINE) 5,000 UNIT/ML 1 ML SYRINGE SUBCUT SCH (05:21)
[2018-05-26 06:23] LABS: ABSOLUTE BASOPHILS # (AUTO) 0.1 10^3/uL (0.0-0.2); ABSOLUTE EOSINOPHILS # (AUTO) 0.1 10^3/uL (0.0-0.6); ABSOLUTE MONOCYTES (AUTO) 0.6 10^3/uL (0.1-1.4); ABSOLUTE NEUT (AUTO) 4.8 10^3/uL (1.7-8.2); BASOPHILS % (AUTO) 0.8 % (0-2); EOSINOPHILS % (AUTO) 1.3 % (0-6); HEMATOCRIT 47.8 % (37.9-51.0); HEMOGLOBIN 15.6 g/dL (13.5-17.0); LYMPHOCYTES % (AUTO) 15.1 % (13-45); MEAN CORPUSCULAR HEMOGLOBIN 26.6 pg (27.0-33.4); MEAN CORPUSCULAR HGB CONC 32.7 g/dL (32.0-36.0); MEAN CORPUSCULAR VOLUME 81 fl (80-97); MONOCYTES % (AUTO) 9.3 % (3-13); PLATELET COUNT 277 10^3/uL (150-450); RED BLOOD COUNT 5.88 10^6/uL (4.35-5.55); RED CELL DISTRIBUTION WIDTH 20.8 % (11.5-14.0); SEGMENTED NEUTROPHILS % (AUTO) 73.5 % (42-78); TOTAL CELLS COUNTED % (AUTO) 100 %; WHITE BLOOD COUNT 6.6 10^3/uL (4.0-10.5)
[2018-05-26 06:47] LABS: ALANINE AMINOTRANSFERASE 26 U/L (21-72); ALBUMIN 3.8 g/dL (3.5-5.0); ALKALINE PHOSPHATASE 209 U/L (38-126); ANION GAP 11 (5-19); ASPARTATE AMINO TRANSFERASE 25 U/L (17-59); BILIRUBIN,TOTAL 1.7 mg/dL (0.2-1.3); BLOOD UREA NITROGEN 34 mg/dL (7-20); CALCIUM 9.8 mg/dL (8.4-10.2); CARBON DIOXIDE 23 mmol/L (22-30); CHLORIDE 104 mmol/L (98-107); GLUCOSE 83 mg/dL (75-110); POTASSIUM 4.9 mmol/L (3.6-5.0); SODIUM 138.2 mmol/L (137-145); TOTAL PROTEIN 6.6 g/dL (6.3-8.2)
[2018-05-26 06:59] LABS: FREE T3 2.84 pg/mL (2.77-5.27); FREE T4 (FREE THYROXINE) 1.31 ng/dL (0.78-2.19)
[2018-05-26] MEDS: DULOXETINE HCL 30 MG CAPSULE.DR PO SCH ×2 (10:49→18:54)
[2018-05-26] MEDS: FUROSEMIDE INJ/PF 40 MG/4 ML SDV IV SCH ×2 (10:49→21:52)
[2018-05-26] MEDS: ENOXAPARIN SODIUM INJ 100 MG/1 ML DISP.SYRIN SUBCUT SCH ×2 (10:49→21:53)
[2018-05-26] MEDS: UREA 20% CREAM 85 GM TUBE TP SCH (10:50)
[2018-05-26] MEDS: DOCUSATE SODIUM 100 MG CAPSULE PO SCH ×2 (10:50→18:54)
[2018-05-26] MEDS: ASPIRIN 325 MG TABLET PO SCH (10:50)
[2018-05-26] MEDS: THIAMINE HCL 100 MG TABLET PO SCH (10:51)
[2018-05-26] MEDS: QUETIAPINE FUMARATE 25 MG TABLET PO SCH (10:51)
--- NOTE | 2018-05-26 13:12 | PDOC PROGRESS REPORT ---
Subjective Progress Note for:: 05/26/18 Reason For Visit: ABD DISTENSION,CAD,CHF,VEINOUS STASIS Patient seen at bedside and denies any complaints of chest pain but does have abdominal distention and nausea especially postprandial. We reviewed his records from [facility] ([facility] but there was no mention of any valve surgery. It appears that he was admitted there in 2011 with bacteremia. There was a transthoracic and transesophageal echo report attached which did not reveal any evidence of infective endocarditis or history of any previous valve surgery. Physical Exam Vital Signs: Temp Pulse Resp BP Pulse Ox 97.7 F 66 24 H 142/86 H 94 05/26/18 11:33 05/26/18 11:33 05/26/18 11:33 05/26/18 11:33 05/26/18 11:33 Intake & Output 05/25/18 05/26/18 05/27/18 06:59 06:59 06:59 Intake Total 1764 Output Total 400 2000 Balance -400 -236 Weight 105.9 kg 104.6 kg General appearance: PRESENT: mild distress Neck exam: PRESENT: JVD Respiratory exam: PRESENT: decreased breath sounds - Abdomen mildly distented with no tenderness or rigidity. No pitting pedal edema but chronic skin scaling noted on both legs with colder skin of feet compared to the rest of the legs Neurological exam: PRESENT: alert, altered, awake, oriented to person Results Laboratory Results: 05/26/18 05:53 05/26/18 05:53 05/25/18 05/26/18 05/26/18 18:15 05:53 05:53 WBC 6.6 RBC 5.88 H Hgb 15.6 Hct 47.8 MCV 81 MCH 26.6 L MCHC 32.7 RDW 20.8 H Plt Count 277 Seg Neutrophils % 73.5 Lymphocytes % 15.1 Monocytes % 9.3 Eosinophils % 1.3 Basophils % 0.8 Absolute Neutrophils 4.8 Absolute Lymphocytes 1.0 Absolute Monocytes 0.6 Absolute Eosinophils 0.1 Absolute Basophils 0.1 Carbonic Acid 1.02 L HCO3/H2CO3 Ratio 20:1 ABG pH 7.42 ABG pCO2 33.8 L ABG pO2 68.6 L ABG HCO3 21.2 ABG O2 Saturation 94.2 ABG Base Excess -2.4 FiO2 2L Sodium 138.2 Potassium 4.9 Chloride 104 Carbon Dioxide 23 Anion Gap 11 BUN 34 H Creatinine 2.03 H Est GFR ( Amer) 41 L Est GFR (Non-Af Amer) 34 L Glucose 83 Calcium 9.8 Total Bilirubin 1.7 H AST 25 ALT 26 Alkaline Phosphatase 209 H Total Protein 6.6 Albumin 3.8 Free T4 Free T3 pg/mL 05/26/18 05:53 WBC RBC Hgb Hct MCV MCH MCHC RDW Plt Count Seg Neutrophils % Lymphocytes % Monocytes % Eosinophils % Basophils % Absolute Neutrophils Absolute Lymphocytes Absolute Monocytes Absolute Eosinophils Absolute Basophils Carbonic Acid HCO3/H2CO3 Ratio ABG pH ABG pCO2 ABG pO2 ABG HCO3 ABG O2 Saturation ABG Base Excess FiO2 Sodium Potassium Chloride Carbon Dioxide Anion Gap BUN Creatinine Est GFR ( Amer) Est GFR (Non-Af Amer) Glucose Calcium Total Bilirubin AST ALT Alkaline Phosphatase Total Protein Albumin Free T4 1.31 Free T3 pg/mL 2.84 05/24/18 05/24/18 05/24/18 21:50 21:50 23:15 CK-MB (CK-2) Troponin I 0.103 0.088 NT-Pro-B Natriuret Pep 32738 H 05/25/18 05/25/18 05/25/18 05:20 11:44 17:36 CK-MB (CK-2) Troponin I 0.106 0.385 0.972 NT-Pro-B Natriuret Pep 05/26/18 05/26/18 05:53 05:53 CK-MB (CK-2) 3.70 Troponin I 1.620 NT-Pro-B Natriuret Pep Impressions: Abdomen/Pelvis CT 05/24/18 22:32 IMPRESSION: 1. Query cirrhotic liver with mild abdominopelvic ascites. 2. Diverticulosis without inflammatory changes. Chest X-Ray 05/25/18 00:00 IMPRESSION: Abnormal mediastinal contour at the AP window is nonspecific, and may represent unilateral pulmonary artery enlargement, left hilar lymphadenopathy, mass, or other. Head CT 05/25/18 00:00 IMPRESSION: NO ACUTE INTRACRANIAL IMAGING FINDINGS. EVIDENCE OF ACUTE STROKE: NO. 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 Reviewed labs showing improvement in total bilirubin but worsening of renal function. Cardiac biomarkers also showing trending up of troponin. In the absence of any amy anginal symptoms and known decreased EF with what appears to be an acute exacerbation of combined systolic and diastolic heart failure his troponin could be secondary to cardiomyopathy. Will continue with diuretic therapy and agree with withholding JOSE D inhibitor and spironolactone at this time because of uptrending creatinine levels. Continue to monitor intake and output closely. Agree with anticoagulation for now and once renal function stabilizes patient will need ischemia evaluation with a cardiac catheterization. Continue with low-dose beta-laurie therapy. Patient does have a sternotomy scar and so it is likely that the medical records we have received from [place] are incomplete and we should attempt to get complete records to understand what cardiac procedure he has had done. Elevated bilirubin with abdominal distention likely secondary to hepatic congestion and hopefully may improve with correction of volume status. Dr. Montenegro will resume cardiology care tomorrow morning and will arrange for ischemia evaluation once renal function stabilizes. Consider statin therapy if liver function improves. - Time Time with patient: 15-25 minutes
--- NOTE | 2018-05-26 19:03 | PROGRESS NOTE E ---
Progress Note NAME: JUJU ANDRADE : 1960 AGE: 57Y DATE: 05/26/2018 ROOM: 415 SUBJECTIVE: The patient is a pleasant 55-year-old male who has a past medical history of congestive heart failure, chronic intermittent swelling of the lower extremity; admitted with shortness of breath, edema, congestive heart failure exacerbation. He is being treated now with Lasix 40 mg IV twice a day. The patient had a bump of his troponin today. He had a CT scan of his abdomen with IV contrast 2 days ago. It showed questionable liver cirrhosis, it showed also ascites. The patient is feeling a little better today, but is still complaining of abdominal pain. There is no nausea or vomiting. OBJECTIVE: GENERAL: The patient is lying in bed, not in distress. VITAL SIGNS: Blood pressure is 106/72, temperature 97.6, heart rate 66, respiratory 24. HEENT: Head normocephalic, atraumatic. Pupils round, reactive to light and accommodation bilaterally. Extraocular movements intact. Ears: Tympanic membranes intact bilaterally. No discharge from the ear. NECK: Supple, no increased JVD, no thyromegaly, no lymphadenopathy. CARDIOVASCULAR: Normal S1, S2. Regular rate and rhythm. No murmur, no gallop. RESPIRATORY: Lungs clear. ABDOMEN: Slight tenderness. No rebound, no guarding. MUSCULOSKELETAL: No edema. NEUROLOGIC: Awake, alert. LABORATORY DATA: Sodium 138, potassium 4.9, creatinine 2.0, GFR is 41, total bilirubin is 1.7, direct bilirubin 1.0, alkaline phosphatase is 209. White blood count 6.6, hemoglobin 15.6. Creatinine is 1.2. ASSESSMENT AND PLAN: 1. ACUTE EXACERBATION OF CONGESTIVE HEART FAILURE ON LASIX. Continue Lasix. He had echocardiogram, it showed ejection fraction of 40%. 2. NON-STEMI. Cardiology on board. He is on Lovenox full dose as well as metoprolol and aspirin. 3. HEPATIC CONGESTION, QUESTIONABLE LIVER CIRRHOSIS ON CT SCAN. Check his ammonia level today and we will do a sonogram of the liver to rule out cholecystitis. The patient had elevated bilirubin. 4. HYPERTENSION, CONTROLLED. 5. ERNESTINE AND CKD STAGE 3. PROBABLY SECONDARY TO CONTRAST IN VIEW OF NEPHROPATHY. We will consult nephrology tomorrow morning. MEDICAL NECESSITY: IV Lasix and he needs to stay for probable event of non-STEMI. DICTATING PHYSICIAN: ALEXSANDER NAVARRO M.D. [id number] PHY#: [id number] ID: [id number] JOB#: [id number] ACCT: [id number] cc: >
[2018-05-27] MEDS: ACETAMINOPHEN 325 MG TABLET PO PRN ×2 (02:02→07:45)
[2018-05-27 05:07] LABS: HEMATOCRIT 49.2 % (37.9-51.0); HEMOGLOBIN 15.9 g/dL (13.5-17.0); MEAN CORPUSCULAR HEMOGLOBIN 26.3 pg (27.0-33.4); MEAN CORPUSCULAR HGB CONC 32.4 g/dL (32.0-36.0); MEAN CORPUSCULAR VOLUME 81 fl (80-97); PLATELET COUNT 290 10^3/uL (150-450); RED BLOOD COUNT 6.05 10^6/uL (4.35-5.55); RED CELL DISTRIBUTION WIDTH 20.9 % (11.5-14.0); WHITE BLOOD COUNT 6.7 10^3/uL (4.0-10.5)
[2018-05-27] MEDS: METOPROLOL TARTRATE 25 MG TABLET PO SCH ×2 (05:42→17:18)
[2018-05-27 06:51] LABS: ALBUMIN 4.1 g/dL (3.5-5.0); ANION GAP 16 (5-19); BLOOD UREA NITROGEN 43 mg/dL (7-20); CALCIUM 9.9 mg/dL (8.4-10.2); CARBON DIOXIDE 21 mmol/L (22-30); CHLORIDE 100 mmol/L (98-107); GLUCOSE 73 mg/dL (75-110); PHOSPHORUS 6.1 mg/dL (2.5-4.5); POTASSIUM 5.2 mmol/L (3.6-5.0)
[2018-05-27] MEDS: ENOXAPARIN SODIUM INJ 100 MG/1 ML DISP.SYRIN SUBCUT SCH (10:52)
[2018-05-27] MEDS: FUROSEMIDE INJ/PF 40 MG/4 ML SDV IV SCH (10:52)
[2018-05-27] MEDS: DULOXETINE HCL 30 MG CAPSULE.DR PO SCH ×2 (10:52→17:20)
[2018-05-27] MEDS: ASPIRIN 325 MG TABLET PO SCH (10:52)
[2018-05-27] MEDS: QUETIAPINE FUMARATE 25 MG TABLET PO SCH (10:53)
[2018-05-27] MEDS: UREA 20% CREAM 85 GM TUBE TP SCH (10:53)
[2018-05-27] MEDS: DOCUSATE SODIUM 100 MG CAPSULE PO SCH ×2 (10:53→17:21)
[2018-05-27] MEDS: THIAMINE HCL 100 MG TABLET PO SCH (10:54)
--- NOTE | 2018-05-27 10:54 | RADIOLOGY REPORT (SQ) ---
EXAM DESCRIPTION: U/S ABDOMEN COMPLETE W/DOPPLER COMPLETED DATE/TIME: 05/27/2018 1:49 am REASON FOR STUDY: ABDOMINAL PAIN. R/O CHOLECYSTITIS COMPARISON: None. TECHNIQUE: Dynamic and static grayscale images acquired of the abdomen and recorded on PACS. Additio nal selected color Doppler and spectral images recorded. LIMITATIONS: None. FINDINGS: PANCREAS: No masses. Visualized pancreatic duct normal caliber. LIVER: Echotexture is coarse with increased echogenicity consistent with fatty infiltration. LIVER VASCULATURE: Normal directional flow of the main portal vein and hepatic veins. GALLBLADDER: No stones. Normal wall thickness. No pericholecystic fluid. ULTRASOUND-DETECTED FRENCH'S SIGN: Negative. INTRAHEPATIC DUCTS AND COMMON DUCT: CBD and intrahepatic ducts normal caliber. No filling defects. INFERIOR VENA CAVA: Normal flow. AORTA: No aneurysm. RIGHT KIDNEY: Normal size. Normal echogenicity. No solid or suspicious masses. No hydronephros is. No calcifications. LEFT KIDNEY: Normal size. Normal echogenicity. No solid or suspicious masses. No hydronephrosi s. No calcifications. SPLEEN:Normal size. No solid masses. PERITONEAL AND PLEURAL SPACES: No ascites or effusions. OTHER: No other significant finding. IMPRESSION: FATTY LIVER. NO OTHER SIGNIFICANT FINDING. TECHNICAL DOCUMENTATION: JOB ID: [id number] [employer]- All Rights Reserved Reading location - IP/workstation name: [email or web address]
--- NOTE | 2018-05-27 15:04 | PDOC PROGRESS REPORT ---
Subjective Progress Note for:: 05/27/18 Subjective:: Assumed care today. Reviewed notes. This is a 57 yr old male with a PMH of CHF, HTN, CAD with prior CABG and unknown valve replacement who initially presented with increasing SOB, leg swelling and uncontrolled hypertension. He was admitted for CHF exacerbation and was started on IV Lasix. No acute event overnight. He says his breathing continues to improve. Currently comfortable and saturating well on room air. He denies chest pain. Creatinine is trending up with IV Lasix. Will reduce Lasix to 40 mg daily today. Troponin also trended up recently. He has been evaluated by cardiology and troponin elevation was deemed likely related to his cardiomyopathy and has recommended further work-up/possible cath when creatinine improves. Noted echo showing EF of 35-40%. He does complain of epigastric discomfort after eating as if the food is stuck on his chest. Reviewed chest x-ray on 05/25 which showed possible mediastinal mass. Will order a CT chest to further assess this. CT of the abdomen shows possible cirrhosis. Received a few records from [place] form 2011 which mentions patient has HIV. Patient says he was never told he has HIV. He is agreaable to HIV testing. No records about valve replacement but patient insist he had 2 valve replacements in [place], one in 2011 and another one in 2015. Discussed with RN to follow up on requested medical records from [place]. Reason For Visit: ABD DISTENSION,CAD,CHF,VEINOUS STASIS Physical Exam Vital Signs: Temp Pulse Resp BP Pulse Ox 97.4 F 66 20 152/90 H 95 05/27/18 11:00 05/27/18 11:00 05/27/18 11:00 05/27/18 11:00 05/27/18 11:00 Intake & Output 05/26/18 05/27/18 05/28/18 06:59 06:59 06:59 Intake Total 1764 1100 Output Total 2000 1250 Balance -236 -150 Weight 230 lb 9.656 oz 229 lb 11.547 oz General appearance: PRESENT: no acute distress, well-developed, well-nourished Head exam: PRESENT: atraumatic, normocephalic Eye exam: PRESENT: conjunctiva pink, EOMI, PERRLA. ABSENT: scleral icterus Ear exam: PRESENT: normal external ear exam Mouth exam: PRESENT: moist, tongue midline Neck exam: ABSENT: carotid bruit, JVD, lymphadenopathy, thyromegaly Respiratory exam: PRESENT: rhonchi. ABSENT: rales, wheezes Cardiovascular exam: PRESENT: RRR. ABSENT: diastolic murmur, rubs, systolic murmur Pulses: PRESENT: normal dorsalis pedis pul GI/Abdominal exam: PRESENT: normal bowel sounds, soft. ABSENT: distended, guar ding, mass, organolmegaly, rebound, tenderness Rectal exam: PRESENT: deferred Extremities exam: PRESENT: +1 edema Neurological exam: PRESENT: alert, awake, oriented to person, oriented to place, oriented to time, oriented to situation, CN II-XII grossly intact. ABSENT: motor sensory deficit Results Laboratory Results: 05/27/18 04:21 05/27/18 04:21 05/27/18 05/27/18 04:21 04:21 WBC 6.7 RBC 6.05 H Hgb 15.9 Hct 49.2 MCV 81 MCH 26.3 L MCHC 32.4 RDW 20.9 H Plt Count 290 Sodium 137.0 Potassium 5.2 H Chloride 100 Carbon Dioxide 21 L Anion Gap 16 BUN 43 H Creatinine 2.53 H Est GFR ( Amer) 32 L Est GFR (Non-Af Amer) 26 L Glucose 73 L Calcium 9.9 Phosphorus 6.1 H Albumin 4.1 05/24/18 05/24/18 05/24/18 21:50 21:50 23:15 CK-MB (CK-2) Troponin I 0.103 0.088 NT-Pro-B Natriuret Pep 99142 H 05/25/18 05/25/18 05/25/18 05:20 11:44 17:36 CK-MB (CK-2) Troponin I 0.106 0.385 0.972 NT-Pro-B Natriuret Pep 05/26/18 05/26/18 05:53 05:53 CK-MB (CK-2) 3.70 Troponin I 1.620 NT-Pro-B Natriuret Pep Impressions: Abdomen/Pelvis CT 05/24/18 22:32 IMPRESSION: 1. Query cirrhotic liver with mild abdominopelvic ascites. 2. Diverticulosis without inflammatory changes. Chest X-Ray 05/25/18 00:00 IMPRESSION: Abnormal mediastinal contour at the AP window is nonspecific, and may represent unilateral pulmonary artery enlargement, left hilar lym phadenopathy, mass, or other. Head CT 05/25/18 00:00 IMPRESSION: NO ACUTE INTRACRANIAL IMAGING FINDINGS. EVIDENCE OF ACUTE STROKE: NO. Abdomen Ultrasound 05/26/18 10:11 IMPRESSION: FATTY LIVER. NO OTHER SIGNIFICANT FINDING. Assessment & Plan - Diagnosis (1) Acute exacerbation of congestive heart failure Qualifiers: Heart failure type: combined systolic and diastolic Qualified Code(s): I50.43 - Acute on chronic combined systolic (congestive) and diastolic (congestive) heart failure Is this a current diagnosis for this admission?: Yes Plan: Currently comfortable and saturating well on room air. Decrease Lasix to 40 mg daily. Echo shows EF of 35-40%. (2) Elevated troponin Is this a current diagnosis for this admission?: Yes Plan: Deemed to be from cardiomyopathy by cardiology. Patient is currently on therapeutic dose of Lovenox as cardio recommends anticoagulation. Discussed with pharmacy as patient's creatinine is trending up. Calculated GFR base on today's renal function is 41. Lovenox will be renally adjusted for GFR<30. Closely monitor renal function and adjust Lovenox appropriately. Discussed with cardio. Will reduce Lovenox to 100 mg daily. (3) Hypertension Qualifiers: Hypertension type: essential hypertension Qualified Code(s): I10 - Essential (primary) hypertension Is this a current diagnosis for this admission?: Yes Plan: Blood pressure running in the 150/90s. Continue metoprolol. Also on IV Lasix and hydralazine prn. ACEi and spironolactone held due to increasing creatinine. (4) Mediastinal mass Is this a current diagnosis for this admission?: Yes Plan: Reviewed chest x-ray on 05/25 which showed possible mediastinal mass. Will order a CT chest to further assess this. CT of the abdomen/pelvis shows possible cirrhosis. - Time Time Spent with patient: 25-34 minutes
--- NOTE | 2018-05-27 15:59 | RADIOLOGY REPORT (SQ) ---
EXAM DESCRIPTION: CT CHEST WITHOUT COMPLETED DATE/TIME: 05/27/2018 3:38 pm REASON FOR STUDY: further eval CXRfindings on 05/25-?mediastinal mass COMPARISON: 05/25/2017 TECHNIQUE: CT scan performed of the chest without intravenous contrast. Images reviewed with lung, soft tissue and bone windows. Reconstructed coronal and sagittal MPR images reviewed. All images st ored on PACS. All CT scanners at this facility use dose modulation, iterative reconstruction, and/or weight based d osing when appropriate to reduce radiation dose to as low as reasonably achievable (ALARA). [facility]: Dose Right [facility]: CareDose [facility]: Dose Right [facility]: Teradose 4D [facility]: Smart Mape RADIATION DOSE: CT Rad equipment meets quality standard of care and radiation dose reduction techniq ues were employed. CTDIvol: 13.3 mGy. DLP: 497 mGy-cm. mGy. LIMITATIONS: No technical limitations. FINDINGS: LUNGS AND PLEURA: Scarring is noted throughout the lungs. No airspace consolidation, pneu mothorax, or pleural effusion is present. HILAR AND MEDIASTINAL STRUCTURES: The presumed mediastinal mass seen on prior chest x-ray corresponds to a dilated left pulmonary artery measuring up to 4 cm in diameter. The main pulmonary artery sarthak ures up to 3.8 cm and the right pulmonary artery measures approximately 3 cm. There is shotty lympha denopathy present in the superior mediastinum. HEART AND VASCULAR STRUCTURES: Cardiomegaly is present. Diffuse coronary artery calcifications are n oted. There are mural calcifications throughout the aorta. UPPER ABDOMEN: There is ascites noted about the spleen and liver that is partially imaged. THYROID AND OTHER SOFT TISSUES: No masses. No adenopathy. BONES: Scattered degenerative changes without aggressive appearing bony lesion HARDWARE: CABG changes are present. OTHER: No other significant findings. IMPRESSION: 1. Presumed mediastinal mass seen on prior chest x-ray corresponds to a dilated left pu lmonary artery. All of the pulmonary arteries are significantly enlarged. Recommend correlation wit h any history of pulmonary artery hypertension. 2. Shotty lymphadenopathy in the superior mediastinum. Clinical correlation recommended. 3. Chronic lung changes. 4. Partially imaged ascites about the liver and spleen. Clinical correlation recommended. TECHNICAL DOCUMENTATION: JOB ID: [id number] Quality ID # [id number]: Final reports with documentation of one or more dose reduction techniques (e.g., Au tomated exposure control, adjustment of the mA and/or kV according to patient size, use of iterative reconstruction technique) 2010 [email or web address]- All Rights Reserved Reading location - IP/workstation name: [email or web address]
[2018-05-27] MEDS: PANTOPRAZOLE SODIUM 40 MG VIAL IV SCH (16:48)
--- NOTE | 2018-05-27 23:15 | Progress Note ---
Provider Note Provider Note: CARDIOLOGY PROGRESS NOTE by Dr. Radha Lara on 05/27/2018. SUBJECTIVE: The patient is not a very good historian. He states his shortness of breath is only marginally improved. Although he is able to lie down flat. He has no PND. There is no chest pain or discomfort. He has venous stasis dermatitis in his leg with mild venous pedal edema bilaterally. He remains in sinus rhythm. Although he states he had a coronary artery bypass graft surgery and valve replacement, we are not able to get the records. Review of re-faxed consent for release of records from [place].. In the records it says that the patient has HIV, but today's HIV 1 and 2 antibodies are negative. The patient abdominal distention continues. He denies any abdominal pain. PHYSICAL EXAMINATION: The patient appears to be chronically ill. But is well- groomed. In no acute distress. Selected Entries 05/27/18 07:50 Temperature 97.4 F Temperature Oral Source Pulse Rate 67 Respiratory 18 Rate Blood Pressure 160/99 H Blood Pressure 119 Mean BP Location Left Arm BP Position Supine O2 Sat by Pulse 96 Oximetry Oxygen Flow 2.00 Rate Oxygen Delivery Nasal Cannula Method 05/26/18 05/27/18 05/27/18 05:53 04:21 04:21 WBC 6.7 RBC 6.05 H Hgb 15.9 Hct 49.2 MCV 81 MCH 26.3 L MCHC 32.4 RDW 20.9 H Plt Count 290 Sodium 137.0 Potassium 5.2 H Chloride 100 Carbon Dioxide 21 L Anion Gap 16 BUN 43 H Creatinine 2.53 H Est GFR (Non-Af Amer) 26 L Glucose 73 L Calcium 9.9 Phosphorus 6.1 H Troponin I 1.620 HIV 1&2 Antibody HEAD: Head is atraumatic normocephalic. Eyes: Pupils are equal round regular reactive light accommodation extraocular movements are normal there is no congenital pallor there is no scleral icterus. Ears: External auditory canals are clear, there are no lesions of the pinna. Nose: No deviated nasal septum and no inflammation of the nasal mucous membrane. Mouth: Mucous membranes of mouth are moist tongue is moist there is no ulcers there is no bleeding from the gums. Throat: There is no redness of the oropharynx there is no exudates. Skin: There is no petechia or ecchymosis there is no skin lesions or skin rashes. Neck: Neck is supple there is no JVD carotids equal there is no bruit there is no lymphadenopathy there is no neck stiffness. There is no goiter trachea central lungs: Lungs are clear to auscultation percussion there is no accessory muscles of respiration in use. There is no rhonchi rales or wheezing. There is no chest wall tenderness. HEART: S1-S2 is heard there is no S3 gallop there is no S4 gallop S1 is of normal intensity. There is no rub. The systolic murmur in the left sternal border and apex without radiation. There is no prosthetic valve clicks heard. Abdomen: Abdomen is soft, mildly distended, no definite ascites. There is no hepatosplenomegaly. Bowel sounds well heard there is no tender areas of masses. There is no rebound guarding or rigidity. Extremities: Femorals are slightly diminished, there is no bruits. Leg pulses are diminished. There is mild pedal edema, with venous stasis dermatitis. There is no DVT or cellulitis there is no cyanosis or clubbing there is no DVT or cellulitis. There is no calf tenderness. 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 But in spite of this he has slow mentation. Psychiatric: The patient judgment and insight are intact and her affect is . 05/27/18 04:21 WBC RBC Hgb Hct MCV MCH MCHC RDW Plt Count Sodium Potassium Chloride Carbon Dioxide Anion Gap BUN Creatinine Est GFR (Non-Af Amer) Glucose Calcium Phosphorus Troponin I HIV 1&2 Antibody NEGATIVE Abdomen/Pelvis CT 05/24/18 22:32 IMPRESSION: 1. Query cirrhotic liver with mild abdominopelvic ascites. 2. Diverticulosis without inflammatory changes. Chest X-Ray 05/25/18 00:00 IMPRESSION: Abnormal mediastinal contour at the AP window is nonspecific, and may represent unilateral pulmonary artery enlargement, left hilar lymphadenopathy, mass, or other. Head CT 05/25/18 00:00 IMPRESSION: NO ACUTE INTRACRANIAL IMAGING FINDINGS. EVIDENCE OF ACUTE STROKE: NO. Abdomen Ultrasound 05/26/18 10:11 IMPRESSION: FATTY LIVER. NO OTHER SIGNIFICANT FINDING. Chest CT 05/27/18 14:35 IMPRESSION: 1. Presumed mediastinal mass seen on prior chest x-ray corresponds to a dilated left pulmonary artery. All of the pulmonary arteries are significantly enlarged. Recommend correlation with any history of pulmonary artery hypertension. 2. Shotty lymphadenopathy in the superior mediastinum. Clinical correlation recommended. 3. Chronic lung changes. 4. Partially imaged ascites about the liver and spleen. Clinical correlation recommended. IMPRESSION/RECOMMENDATION: 1. Elevated troponin I. Still no definite evidence of non-ST elevation MS. We will recheck the patient's troponin in the morning. 2. 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 3. Cardiomyopathy ischemic: Moderately reduced LV ejection fraction. Continue current anti-cardia myopathy treatment. 4. Coronary history of coronary artery disease and history of coronary bypass graft surgery, and history of valve replacement: Records awaited. Nurse is trying to contact their Medical records department of the [facility] in [place]. 5. Abdominal distention: Possible cirrhosis of the liver with ascites. 6. History of valve replacement? Aortic versus mitral. Will try to get records from [facility]. 7. Hypertension: Blood pressure well controlled. 8. Chronic kidney disease stage IV. 9. Questionable HIV status. 10. History of psychiatric disorder. Continue current treatment. Medications reviewed. Await records from [facility]. Medical decision making is of high complexity. 40 minutes spent on this patient more than 50% of time spent in direct patient care. Note that the patient is a full code. He states he has no relatives or any other person that he can name as his surrogate healthcare decision maker. Management plan discussed with attending physician on the case.
[2018-05-28] MEDS: METOPROLOL TARTRATE 25 MG TABLET PO SCH ×2 (05:51→18:02)
[2018-05-28 06:26] LABS: ANION GAP 18 (5-19); BLOOD UREA NITROGEN 56 mg/dL (7-20); CALCIUM 9.9 mg/dL (8.4-10.2); CARBON DIOXIDE 18 mmol/L (22-30); CHLORIDE 100 mmol/L (98-107); GLUCOSE 70 mg/dL (75-110); POTASSIUM 5.3 mmol/L (3.6-5.0); SODIUM 136.1 mmol/L (137-145)
[2018-05-28] MEDS ORDERED: FUROSEMIDE INJ/PF 40 MG/4 ML SDV IV SCH (10:00)
[2018-05-28] MEDS: THIAMINE HCL 100 MG TABLET PO SCH (11:10)
[2018-05-28] MEDS: DOCUSATE SODIUM 100 MG CAPSULE PO SCH ×2 (11:10→18:02)
[2018-05-28] MEDS: ENOXAPARIN SODIUM INJ 100 MG/1 ML DISP.SYRIN SUBCUT SCH (11:10)
[2018-05-28] MEDS: DULOXETINE HCL 30 MG CAPSULE.DR PO SCH ×2 (11:10→18:02)
[2018-05-28] MEDS: QUETIAPINE FUMARATE 25 MG TABLET PO SCH (11:10)
[2018-05-28] MEDS: ASPIRIN 325 MG TABLET PO SCH (11:10)
[2018-05-28] MEDS: UREA 20% CREAM 85 GM TUBE TP SCH (11:11)
[2018-05-28] MEDS: PANTOPRAZOLE SODIUM 40 MG VIAL IV SCH (11:11)
[2018-05-28] MEDS: GABAPENTIN 100 MG CAPSULE PO PRN (11:16)
--- NOTE | 2018-05-28 18:30 | PDOC PROGRESS REPORT ---
Subjective Progress Note for:: 05/28/18 Subjective:: This is a 57 yr old male with a PMH of CHF, HTN, CAD with prior CABG and unknown valve replacement who initially presented with increasing SOB, leg swelling and uncontrolled hypertension. He was admitted for CHF exacerbation and was started on IV Lasix. No acute event overnight. He says his breathing continues to improve. Currently comfortable and saturating well on room air. He denies chest pain. Creatinine is trending up with IV Lasix. Will reduce Lasix to 40 mg daily today. Troponin also trended up recently. He has been evaluated by cardiology and troponin elevation was deemed likely related to his cardiomyopathy and has recommended further work-up/possible cath when creatinine improves. Noted echo showing EF of 35-40%. He does complain of epigastric discomfort after eating as if the food is stuck on his chest. Reviewed chest x-ray on 05/25 which showed possible mediastinal mass. Will order a CT chest to further assess this. CT of the abdomen shows possible cirrhosis. Received a few records from [place] form 2011 which mentions patient has HIV. Darshan rivera says he was never told he has HIV. He is agreaable to HIV testing. No records about valve replacement but patient insist he had 2 valve replacements in [place], one in 2011 and another one in 2015. Discussed with RN to follow up on requested medical records from [place]. 05/28/18: has developed a rash on his elbows and his back, consistent with being on lovenox and having a small abrasion. Patient is very drowsy during the day. He is extremely hard of hearing. Denies any other complaints today Reason For Visit: ABD DISTENSION,CAD,CHF,VEINOUS STASIS Physical Exam Vital Signs: Temp Pulse Resp BP Pulse Ox 97.6 F 63 14 151/79 H 90 L 05/28/18 11:59 05/28/18 14:00 05/28/18 11:59 05/28/18 11:59 05/28/18 11:59 Intake & Output 05/27/18 05/28/18 05/29/18 06:59 06:59 06:59 Intake Total 1100 1166 Output Total 1250 1050 Balance -150 116 Weight 104.2 kg 104.2 kg 104.2 kg General appearance: PRESENT: no acute distress, cooperative Eye exam: PRESENT: PERRLA. ABSENT: scleral icterus Ear exam: PRESENT: TM's normal bilaterally Throat exam: ABSENT: tonsillogmegaly Neck exam: PRESENT: full ROM, JVD. ABSENT: lymphadenopathy, tenderness, thyromegaly, tracheal deviation Respiratory exam: PRESENT: crackles. ABSENT: accessory muscle use Cardiovascular exam: PRESENT: RRR GI/Abdominal exam: PRESENT: normal bowel sounds, soft. ABSENT: tenderness Extremities exam: ABSENT: pedal edema Neurological exam: PRESENT: alert, oriented to person, oriented to place, oriented to time, oriented to situation Psychiatric exam: PRESENT: normal mood Skin exam: PRESENT: dry, rash, warm. ABSENT: jaundice Results Laboratory Results: 05/27/18 04:21 05/28/18 04:50 05/28/18 04:50 Sodium 136.1 L Potassium 5.3 H Chloride 100 Carbon Dioxide 18 L Anion Gap 18 BUN 56 H Creatinine 3.11 H Est GFR ( Amer) 25 L Est GFR (Non-Af Amer) 21 L Glucose 70 L Calcium 9.9 05/24/18 05/24/18 05/24/18 21:50 21:50 23:15 CK-MB (CK-2) Troponin I 0.103 0.088 NT-Pro-B Natriuret Pep 48040 H 05/25/18 05/25/18 05/25/18 05:20 11:44 17:36 CK-MB (CK-2) Troponin I 0.106 0.385 0.972 NT-Pro-B Natriuret Pep 05/26/18 05/26/18 05:53 05:53 CK-MB (CK-2) 3.70 Troponin I 1.620 NT-Pro-B Natriuret Pep Impressions: Abdomen/Pelvis CT 05/24/18 22:32 IMPRESSION: 1. Query cirrhotic liver with mild abdominopelvic ascites. 2. Diverticulosis without inflammatory changes. Chest X-Ray 05/25/18 00:00 IMPRESSION: Abnormal mediastinal contour at the AP window is nonspecific, and may represent unilateral pulmonary artery enlargement, left hilar lymphadenopathy, mass, or other. Head CT 05/25/18 00:00 IMPRESSION: NO ACUTE INTRACRANIAL IMAGING FINDINGS. EVIDENCE OF ACUTE STROKE: NO. Abdomen Ultrasound 05/26/18 10:11 IMPRESSION: FATTY LIVER. NO OTHER SIGNIFICANT FINDING. Chest CT 05/27/18 14:35 IMPRESSION: 1. Presumed mediastinal mass seen on prior chest x-ray corresponds to a dilated left pulmonary artery. All of the pulmonary arteries are significantly enlarged. Recommend correlation with any history of pulmonary artery hypertension. 2. Shotty lymphadenopathy in the superior mediastinum. Clinical correlation recommended. 3. Chronic lung changes. 4. Partially imaged ascites about the liver and spleen. Clinical correlation recommended. Assessment and Plan - Diagnosis (1) Acute renal failure superimposed on stage 3 chronic kidney disease Is this a current diagnosis for this admission?: Yes Plan: 05/28/18 18:21 Going to hold diuretics and monitor sign creatinine appears to be about 1.5 creatinine greater than 3 today. Does have a slightly elevated JVP still feel the patient may be slightly over diuresed. (2) Acute exacerbation of congestive heart failure Qualifiers: Heart failure type: combined systolic and diastolic Qualified Code(s): I50.43 - Acute on chronic combined systolic (congestive) and diastolic (congestive) heart failure Is this a current diagnosis for this admission?: Yes Plan: 05/28/18 18:22 He has been diuresed. Echocardiogram showing an EF of 35-40%. Showing increased right ventricular pressures consistent with pulmonary hypertension. Continue current medications for now, with the exception of his diuretic. Continue to hold JOSE D/ARB due to renal function 05/28/18 18:25 (3) COPD (chronic obstructive pulmonary disease) Is this a current diagnosis for this admission?: Yes Plan: 05/28/18 18:23 No signs of acute exacerbation we will continue to monitor for signs of bronchospasm. (4) Venous stasis Is this a current diagnosis for this admission?: Yes Plan: 05/28/18 18:23 We will continue to monitor. Does give evidence to further vascular disease throughout his body though (5) Hypertension Qualifiers: Hypertension type: essential hypertension Qualified Code(s): I10 - Essential (primary) hypertension Is this a current diagnosis for this admission?: Yes Plan: 05/28/18 18:23 Blood pressure appears to be stable. We will continue to monitor continue current medications for now. (6) Elevated troponin Is this a current diagnosis for this admission?: Yes Plan: 05/28/18 18:23 Is likely secondary to type II [place]. Cardiology continuing to follow for now. - Time Time Spent with patient: 35 or more minutes Medications reviewed and adjusted accordingly: Yes
--- NOTE | 2018-05-28 22:28 | Progress Note ---
Provider Note Provider Note: CARDIOLOGY PROGRESS NOTE by Dr. Radha Lara on 05/28/2018. SUBJECTIVE: The patient still complains of shortness of breath. But he is able to lie down flat. He denies any chest pain discomfort. He still has abdominal distention. The patient remains in sinus rhythm. There is no arrhythmias seen on the monitor. There is no TIA CVA symptoms. Still records are awaited from [facility]. PHYSICAL EXAMINATION: The patient appears to be chronically ill. He appears to be enlarged. And disheveled. But he is in no acute distress. Selected Entries 05/28/18 07:00 Temperature 97.5 F Temperature Oral Source Pulse Rate 67 Respiratory 18 Rate Blood Pressure 140/85 H [Right Upper Arm] Blood Pressure 103 Mean [Right Upper Arm] O2 Sat by Pulse 94 Oximetry Oxygen Delivery Room Air Method ( includes room air) HEAD: Head is atraumatic normocephalic. Eyes: Pupils are equal round regular reactive light accommodation extraocular movements are normal there is no congenital pallor there is no scleral icterus. Ears: External auditory canals are clear, there are no lesions of the pinna. Nose: No deviated nasal septum and no inflammation of the nasal mucous membrane. Mouth: Mucous membranes of mouth are moist tongue is moist there is no ulcers there is no bleeding from the gums. Throat: There is no redness of the oropharynx there is no exudates. Skin: There is no petechia or ecchymosis there is no skin lesions or skin rashes. Neck: Neck is supple there is no JVD carotids equal there is no bruit there is no lymphadenopathy there is no neck stiffness. There is no goiter trachea central lungs: Lungs are clear to auscultation percussion there is no accessory muscles of respiration in use. There is no rhonchi rales or wheezing. There is no chest wall tenderness. HEART: S1-S2 is heard there is no S3 gallop there is no S4 gallop S1 is of normal intensity. There is no rub. The systolic murmur in the left sternal border and apex without radiation. There is no prosthetic valve clicks heard. Abdomen: Abdomen is soft, mildly distended, no definite ascites. There is no hepatosplenomegaly. Bowel sounds well heard there is no tender areas of masses. There is no rebound guarding or rigidity. Extremities: Femorals are slightly diminished, there is no bruits. Leg pulses are diminished. There is mild pedal edema, with venous stasis dermatitis. There is no DVT or cellulitis there is no cyanosis or clubbing there is no DVT or cellulitis. There is no calf tenderness. IRON MINER: The patient is awake alert oriented 3 with no focal deficits. But in spite of this he has slow mentation. Psychiatric: The patient judgment and insight are intact and her affect is . Labs- All tests 24 hr 05/28/18 04:50 Sodium 136.1 L Potassium 5.3 H Chloride 100 Carbon Dioxide 18 L Anion Gap 18 BUN 56 H Creatinine 3.11 H Est GFR ( Amer) 25 L Est GFR (Non-Af Amer) 21 L Glucose 70 L Calcium 9.9 IMPRESSION/RECOMMENDATION: 1. Elevated troponin I. Still no definite evidence of non-ST elevation DC. We will recheck the patient's troponin in the morning. 2. 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 3. Cardiomyopathy ischemic: Moderately reduced LV ejection fraction. Continue current anti-cardia myopathy treatment. 4. Coronary history of coronary artery disease and history of coronary bypass graft surgery, and history of valve replacement: Records awaited. Nurse is trying to contact their Medical records department of the medical center in [place]. 5. Abdominal distention: Possible cirrhosis of the liver with ascites. 6. History of valve replacement? Aortic versus mitral. Will try to get records from [facility]. 7. Hypertension: Blood pressure well controlled. 8. Chronic kidney disease stage IV. 9. Questionable HIV status. 10. History of psychiatric disorder. Continue current treatment. Medications reviewed. Await records from [facility]. Medical decision making is of high complexity. 40 minutes spent on this patient more than 50% of time spent in direct patient care. Note that the patient is a full code. He states he has no relatives or any other person that he can name as his surrogate healthcare decision maker. Management plan discussed with attending physician on the case.
--- NOTE | 2018-05-28 22:53 | RADIOLOGY REPORT (SQ) ---
EXAM DESCRIPTION: XR FOOT 3 OR MORE VIEWS BILATERAL COMPLETED DATE/TME: 05/28/2018 21:28 CLINICAL HISTORY: 57 years, Male, fell, foot pain COMPARISON: None. NUMBER OF VIEWS: 3 views of each foot TECHNIQUE: 3 views of each foot LIMITATIONS: None. FINDINGS: Right foot: Osteopenia. Soft tissue ulceration or injury associated with the distal aspect of the great toe. Chronic appearing deformity of the distal tuft of the right great toe without evidence for acute fracture. Tiny calcaneal spurs are noted. Left foot: Tiny calcaneal spurs. No evidence for acute fracture or dislocation. Osteopenia. IMPRESSION: No acute osseous abnormality. Tiny calcaneal spurs bilaterally. Soft tissue injury or ulceration of the distal portion of the right great toe. copyright 2010 [employer]- All Rights Reserved
--- NOTE | 2018-05-28 22:56 | RADIOLOGY REPORT (SQ) ---
EXAM DESCRIPTION: XR ANKLE 3 VIEWS BILATERAL COMPLETED DATE/TME: 05/28/2018 21:29 CLINICAL HISTORY: 57 years, Male, fell, pain COMPARISON: None. NUMBER OF VIEWS: 3 views of each ankle TECHNIQUE: 3 views of each ankle LIMITATIONS: None. FINDINGS: Left ankle: Negative for an acute fracture or dislocation. Ankle mortise is intact. Small calcaneal spurs. Right ankle: Negative for acute fracture or dislocation. Ankle mortise is intact. Small calcaneal spurs IMPRESSION: Small calcaneal spurs bilaterally. copyright 2010 [employer]- All Rights Reserved
[2018-05-29] MEDS: METOPROLOL TARTRATE 25 MG TABLET PO SCH ×2 (05:19→17:26)
[2018-05-29] MEDS: GABAPENTIN 100 MG CAPSULE PO PRN (05:25)
[2018-05-29 06:08] LABS: HEMATOCRIT 46.2 % (37.9-51.0); HEMOGLOBIN 15.1 g/dL (13.5-17.0); MEAN CORPUSCULAR HEMOGLOBIN 26.3 pg (27.0-33.4); MEAN CORPUSCULAR HGB CONC 32.7 g/dL (32.0-36.0); MEAN CORPUSCULAR VOLUME 80 fl (80-97); PLATELET COUNT 291 10^3/uL (150-450); RED BLOOD COUNT 5.75 10^6/uL (4.35-5.55); RED CELL DISTRIBUTION WIDTH 20.6 % (11.5-14.0)
[2018-05-29 06:35] LABS: ALANINE AMINOTRANSFERASE 117 U/L (21-72); ALBUMIN 3.7 g/dL (3.5-5.0); ALKALINE PHOSPHATASE 183 U/L (38-126); ANION GAP 18 (5-19); ASPARTATE AMINO TRANSFERASE 110 U/L (17-59); BILIRUBIN,DIRECT 2.2 mg/dL (0.0-0.4); BILIRUBIN,TOTAL 2.9 mg/dL (0.2-1.3); BLOOD UREA NITROGEN 66 mg/dL (7-20); CALCIUM 9.7 mg/dL (8.4-10.2); CARBON DIOXIDE 19 mmol/L (22-30); CHLORIDE 99 mmol/L (98-107); GLUCOSE 79 mg/dL (75-110); POTASSIUM 4.9 mmol/L (3.6-5.0); SODIUM 135.6 mmol/L (137-145); TOTAL PROTEIN 6.6 g/dL (6.3-8.2)
[2018-05-29] MEDS: THIAMINE HCL 100 MG TABLET PO SCH (09:56)
[2018-05-29] MEDS: PANTOPRAZOLE SODIUM 40 MG VIAL IV SCH (09:56)
[2018-05-29] MEDS: ASPIRIN 325 MG TABLET PO SCH (09:56)
[2018-05-29] MEDS: DULOXETINE HCL 30 MG CAPSULE.DR PO SCH ×2 (09:56→17:27)
[2018-05-29] MEDS: DOCUSATE SODIUM 100 MG CAPSULE PO SCH ×2 (09:56→17:27)
[2018-05-29] MEDS: ENOXAPARIN SODIUM INJ 100 MG/1 ML DISP.SYRIN SUBCUT SCH (09:57)
[2018-05-29] MEDS: UREA 20% CREAM 85 GM TUBE TP SCH (09:59)
--- NOTE | 2018-05-29 11:26 | PDOC PROGRESS REPORT ---
Subjective Progress Note for:: 05/29/18 Subjective:: This is a 57 yr old male with a PMH of CHF, HTN, CAD with prior CABG and unknown valve replacement who initially presented with increasing SOB, leg swelling and uncontrolled hypertension. He was admitted for CHF exacerbation and was started on IV Lasix. No acute event overnight. He says his breathing continues to improve. Currently comfortable and saturating well on room air. He denies chest pain. Creatinine is trending up with IV Lasix. Will reduce Lasix to 40 mg daily today. Troponin also trended up recently. He has been evaluated by cardiology and troponin elevation was deemed likely related to his cardiomyopathy and has recommended further work-up/possible cath when creatinine improves. Noted echo showing EF of 35-40%. He does complain of epigastric discomfort after eating as if the food is stuck on his chest. Reviewed chest x-ray on 05/25 which showed possible mediastinal mass. Will order a CT chest to further assess this. CT of the abdomen shows possible cirrhosis. Received a few records from [place] form 2011 which mentions patient has HIV. Darshan rivera says he was never told he has HIV. He is agreaable to HIV testing. No records about valve replacement but patient insist he had 2 valve replacements in [place], one in 2011 and another one in 2015. Discussed with RN to follow up on requested medical records from [place]. 05/28/18: has developed a rash on his elbows and his back, consistent with being on lovenox and having a small abrasion. Patient is very drowsy during the day. He is extremely hard of hearing. Denies any other complaints today 05/29/18: patient had a fall last night when he was trying to close the door. He has a laceration to his foot. Otherwise he denies any complaints. Still attempting to get records from previous hospital/pcp Reason For Visit: ABD DISTENSION,CAD,CHF,VEINOUS STASIS Physical Exam Vital Signs: Temp Pulse Resp BP Pulse Ox 98.6 F 62 19 162/84 H 94 05/29/18 07:00 05/29/18 07:00 05/29/18 07:00 05/29/18 07:00 05/29/18 07:00 Intake & Output 05/28/18 05/29/18 05/30/18 06:59 06:59 06:59 Intake Total 1166 400 Output Total 1050 1400 Balance 116 -1000 Weight 104.2 kg 104.3 kg General appearance: PRESENT: no acute distress, cooperative Eye exam: PRESENT: EOMI. ABSENT: scleral icterus Mouth exam: PRESENT: neck supple Neck exam: PRESENT: full ROM. ABSENT: JVD, lymphadenopathy, tenderness, thyromegaly, tracheal deviation Respiratory exam: PRESENT: crackles - minor RLL. ABSENT: accessory muscle use Cardiovascular exam: PRESENT: irregular rhythm. ABSENT: gallop, rubs GI/Abdominal exam: PRESENT: ascites, distended, normal bowel sounds, soft, tenderness Neurological exam: PRESENT: alert, oriented to person, oriented to place, oriented to time, oriented to situation Skin exam: PRESENT: dry - venous stasis, normal color, warm Results Laboratory Results: 05/29/18 05:06 05/29/18 05:06 05/29/18 05/29/18 05:06 05:06 WBC 7.0 RBC 5.75 H Hgb 15.1 Hct 46.2 MCV 80 MCH 26.3 L MCHC 32.7 RDW 20.6 H Plt Count 291 Sodium 135.6 L Potassium 4.9 Chloride 99 Carbon Dioxide 19 L Anion Gap 18 BUN 66 H Creatinine 3.13 H Est GFR ( Amer) 25 L Est GFR (Non-Af Amer) 20 L Glucose 79 Calcium 9.7 Total Bilirubin 2.9 H AST 110 H ALT 117 H Alkaline Phosphatase 183 H Total Protein 6.6 Albumin 3.7 05/24/18 05/24/18 05/24/18 21:50 21:50 23:15 CK-MB (CK-2) Troponin I 0.103 0.088 NT-Pro-B Natriuret Pep 50659 H 05/25/18 05/25/18 05/25/18 05:20 11:44 17:36 CK-MB (CK-2) Troponin I 0.106 0.385 0.972 NT-Pro-B Natriuret Pep 05/26/18 05/26/18 05:53 05:53 CK-MB (CK-2) 3.70 Troponin I 1.620 NT-Pro-B Natriuret Pep Impressions: Abdomen/Pelvis CT 05/24/18 22:32 IMPRESSION: 1. Query cirrhotic liver with mild abdominopelvic ascites. 2. Diverticulosis without inflammatory changes. Chest X-Ray 05/25/18 00:00 IMPRESSION: Abnormal mediastinal contour at the AP window is nonspecific, and may represent unilateral pulmonary artery enlargement, left hilar lymphadenopathy, mass, or other. Head CT 05/25/18 00:00 IMPRESSION: NO ACUTE INTRACRANIAL IMAGING FINDINGS. EVIDENCE OF ACUTE STROKE: NO. Abdomen Ultrasound 05/26/18 10:11 IMPRESSION: FATTY LIVER. NO OTHER SIGNIFICANT FINDING. Chest CT 05/27/18 14:35 IMPRESSION: 1. Presumed mediastinal mass seen on prior chest x-ray corresponds to a dilated left pulmonary artery. All of the pulmonary arteries are si gnificantly enlarged. Recommend correlation with any history of pulmonary artery hypertension. 2. Shotty lymphadenopathy in the superior mediastinum. Clinical correlation recommended. 3. Chronic lung changes. 4. Partially imaged ascites about the liver and spleen. Clinical correlation recommended. Foot X-Ray 05/28/18 21:28 IMPRESSION: No acute osseous abnormality. Tiny calcaneal spurs bilaterally. Soft tissue injury or ulceration of the distal portion of the right great toe. copyright 2010 [employer]- All Rights Reserved Ankle X-Ray 05/28/18 21:29 IMPRESSION: Small calcaneal spurs bilaterally. copyright 2010 [employer]- All Rights Reserved Assessment and Plan - Diagnosis (1) Acute renal failure superimposed on stage 3 chronic kidney disease Is this a current diagnosis for this admission?: Yes Plan: Due to his worsening renal function of held his furosemide today. However still does appear to have some abdominal distention and ascites from cirrhosis. This will be interesting to see how we balance his renal function with his fluid status. (2) Acute exacerbation of congestive heart failure Qualifiers: Heart failure type: combined systolic and diastolic Qualified Code(s): I50.43 - Acute on chronic combined systolic (congestive) and diastolic (congestive) heart failure Is this a current diagnosis for this admission?: Yes Plan: He has been diuresed. Echocardiogram showing an EF of 35-40%. Showing increased right ventricular pressures consistent with pulmonary hypertension. Continue current medications for now, with the exception of his diuretic. Continue to hold JOSE D/ARB due to renal function (3) COPD (chronic obstructive pulmonary disease) Is this a current diagnosis for this admission?: Yes Plan: No signs of acute exacerbation we will continue to monitor for signs of bronchospasm. (4) Venous stasis Is this a current diagnosis for this admission?: Yes Plan: We will continue to monitor. Does give evidence to further vascular disease throughout his body though (5) Hypertension Qualifiers: Hypertension type: essential hypertension Qualified Code(s): I10 - Essential (primary) hypertension Is this a current diagnosis for this admission?: Yes Plan: Blood pressure appears to be stable. We will continue to monitor continue current medications for now. (6) Elevated troponin Is this a current diagnosis for this admission?: Yes Plan: Is likely secondary to type II [place]. Cardiology continuing to follow for now. Still awaiting old records from previous hospital. - Time Time Spent with patient: 35 or more minutes Medications reviewed and adjusted accordingly: Yes
[2018-05-29] MEDS: MAG HYDROX/AL HYDROX/SIMETH SUSP 30 ML UDCUP PO PRN (15:39)
--- NOTE | 2018-05-29 20:55 | Progress Note ---
Provider Note Provider Note: CARDIOLOGY PROGRESS NOTE by Dr. Radha Lara on 05/29/2018. SUBJECTIVE: The patient still complains of shortness of breath, but is lying flat in bed with no apparent distress. He denies any chest pain or discomfort. There is no PND orthopnea. His leg edema is about the same. There is no arrhythmias seen on the monitor. There is no TIA CVA symptoms. Still unable to obtain records from Dr. bansal. The records that B got states that the patient had no prior cardiac interventions, but the patient clearly has a median sternotomy scar. He also states that the patient is HIV positive, whereas here at the patient's antibody to HIV 1 and 2 are negative. Finally it was found that the patient give us the wrong hospital name, but the records obtained from [facility] does give the patient's name and date of which is the same as the as it is here this admission. We have asked the other center to send records, since the patient apparently was seen prior to 2016. Also the patient is not a very good historian. PHYSICAL EXAMINATION: The patient appears to be chronically ill and disheveled. But in no acute apparent distress. Selected Entries 05/29/18 11:32 Temperature 97.2 F Temperature Oral Source Pulse Rate 65 Respiratory 20 Rate Blood Pressure 159/79 H Blood Pressure 105 Mean BP Location Left Arm BP Position Supine O2 Sat by Pulse 95 Oximetry Oxygen Flow 2.00 Rate Oxygen Delivery Nasal Cannula Method HEAD: Head is atraumatic normocephalic. Eyes: Pupils are equal round regular reactive light accommodation extraocular movements are normal there is no congenital pallor there is no scleral icterus. Ears: External auditory canals are clear, there are no lesions of the pinna. Nose: No deviated nasal septum and no inflammation of the nasal mucous membrane. Mouth: Mucous membranes of mouth are moist tongue is moist there is no ulcers there is no bleeding from the gums. Throat: There is no redness of the oropharynx there is no exudates. Skin: There is no petechia or ecchymosis there is no skin lesions or skin rashes. Neck: Neck is supple there is no JVD carotids equal there is no bruit there is no lymphadenopathy there is no neck stiffness. There is no goiter trachea central lungs: Lungs are clear to auscultation percussion there is no accessory muscles of respiration in use. There is no rhonchi rales or wheezing. There is no chest wall tenderness. HEART: S1-S2 is heard there is no S3 gallop there is no S4 gallop S1 is of normal intensity. There is no rub. The systolic murmur in the left sternal border and apex without radiation. There is no prosthetic valve clicks heard. Abdomen: Abdomen is soft, mildly distended, no definite ascites. There is no hepatosplenomegaly. Bowel sounds well heard there is no tender areas of masses. There is no rebound guarding or rigidity. Extremities: Femorals are slightly diminished, there is no bruits. Leg pulses are diminished. There is mild pedal edema, with venous stasis dermatitis. There is no DVT or cellulitis there is no cyanosis or clubbing there is no DVT or cellulitis. There is no calf tenderness. [employer] F[employer]: The patient is awake alert oriented 3 with no focal deficits. But in spite of this he has slow mentation. Psychiatric: The patient judgment and insight are intact and her affect is . Labs- All tests 24 hr 05/29/18 05/29/18 05/29/18 05:06 05:06 18:03 WBC 7.0 RBC 5.75 H Hgb 15.1 Hct 46.2 MCV 80 MCH 26.3 L MCHC 32.7 RDW 20.6 H Plt Count 291 Sodium 135.6 L Potassium 4.9 Chloride 99 Carbon Dioxide 19 L Anion Gap 18 BUN 66 H Creatinine 3.13 H Est GFR ( Amer) 25 L Est GFR (Non-Af Amer) 20 L Glucose 79 Calcium 9.7 Total Bilirubin 2.9 H Direct Bilirubin 2.2 H Neonat Total Bilirubin Not Reportable Neonat Direct Bilirubin Not Reportable Neonat Indirect Bili Not Reportable AST 110 H ALT 117 H Alkaline Phosphatase 183 H Total Protein 6.6 Albumin 3.7 Stool Occult Blood NEGATIVE Abdomen/Pelvis CT 05/24/18 22:32 IMPRESSION: 1. Query cirrhotic liver with mild abdominopelvic ascites. 2. Diverticulosis without inflammatory changes. Chest X-Ray 05/25/18 00:00 IMPRESSION: Abnormal mediastinal contour at the AP window is nonspecific, and may represent unilateral pulmonary artery enlargement, left hilar lymphadenopathy, mass, or other. Head CT 05/25/18 00:00 IMPRESSION: NO ACUTE INTRACRANIAL IMAGING FINDINGS. EVIDENCE OF ACUTE STROKE: NO. Abdomen Ultrasound 05/26/18 10:11 IMPRESSION: FATTY LIVER. NO OTHER SIGNIFICANT FINDING. Chest CT 05/27/18 14:35 IMPRESSION: 1. Presumed mediastinal mass seen on prior chest x-ray corresponds to a dilated left pulmonary artery. All of the pulmonary arteries are significantly enlarged. Recommend correlation with any history of pulmonary artery hypertension. 2. Shotty lymphadenopathy in the superior mediastinum. Clinical correlation recommended. 3. Chronic lung changes. 4. Partially imaged ascites about the liver and spleen. Clinical correlation recommended. Foot X-Ray 05/28/18 21:28 IMPRESSION: No acute osseous abnormality. Tiny calcaneal spurs bilaterally. Soft tissue injury or ulceration of the distal portion of the right great toe. copyright 2010 [email or web address]- All Rights Reserved Ankle X-Ray 05/28/18 21:29 IMPRESSION: Small calcaneal spurs bilaterally. copyright 2010 [email or web address]- All Rights Reserved IMPRESSION/RECOMMENDATION: 1. Elevated troponin I. Still no definite evidence of non-ST elevation [place]. 2. 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 3. Cardiomyopathy ischemic: Moderately reduced LV ejection fraction. Continue current anti-cardia myopathy treatment. 4. Coronary history of coronary artery disease and history of coronary bypass graft surgery, and history of valve replacement: Records awaited. Nurse is trying to contact their Medical records department of the [facility] in [place]. 5. Abdominal distention: Possible cirrhosis of the liver with ascites. 6. History of valve replacement? Aortic versus carissa versus tricuspid. The patient history of IV drug abuse in the past most likely the patient had right- sided endocarditis and probably had a tricuspid valve replacement. Await records l. 8. Chronic kidney disease stage IV. 9. Questionable HIV status. The patient's antibody to HIV 1 and HIV 2 in this admission is negative. 10. History of psychiatric disorder. Will discuss with attending physician about a possible psychiatric consult. Continue current treatment. Medications reviewed. Await records from [facility]. Medical decision making is of high complexity. 40 minutes spent on this patient more than 50% of time spent in direct patient care. Note that the patient is a full code. He states he has no relatives or any other person that he can name as his surrogate healthcare decision maker. Management plan discussed with attending physician on the case.
[2018-05-29] MEDS: QUETIAPINE FUMARATE 25 MG TABLET PO SCH (22:17)
[2018-05-30] MEDS: METOPROLOL TARTRATE 25 MG TABLET PO SCH (05:45)
[2018-05-30 06:43] LABS: ANION GAP 13 (5-19); BLOOD UREA NITROGEN 61 mg/dL (7-20); CALCIUM 9.2 mg/dL (8.4-10.2); CARBON DIOXIDE 21 mmol/L (22-30); CHLORIDE 102 mmol/L (98-107); GLUCOSE 74 mg/dL (75-110); POTASSIUM 4.3 mmol/L (3.6-5.0); SODIUM 136.2 mmol/L (137-145)
[2018-05-30] MEDS: ASPIRIN 325 MG TABLET PO SCH (10:46)
[2018-05-30] MEDS: DULOXETINE HCL 30 MG CAPSULE.DR PO SCH ×2 (10:46→17:30)
[2018-05-30] MEDS: DOCUSATE SODIUM 100 MG CAPSULE PO SCH ×2 (10:47→17:30)
[2018-05-30] MEDS: PANTOPRAZOLE SODIUM 40 MG VIAL IV SCH (10:47)
[2018-05-30] MEDS: UREA 20% CREAM 85 GM TUBE TP SCH (10:47)
[2018-05-30] MEDS: ENOXAPARIN SODIUM INJ 100 MG/1 ML DISP.SYRIN SUBCUT SCH (10:47)
[2018-05-30] MEDS: THIAMINE HCL 100 MG TABLET PO SCH (10:47)
--- NOTE | 2018-05-30 17:12 | PDOC PROGRESS REPORT ---
Subjective Progress Note for:: 05/30/18 Subjective:: No adverse events overnight. No new complaints. Vital signs been stable. His breathing he feels like is at baseline. I tried to ask him some questions about his medical history but is not a very good historian. He is eating and drinking without difficulty. Reason For Visit: ABD DISTENSION,CAD,CHF,VEINOUS STASIS Physical Exam Vital Signs: Temp Pulse Resp BP Pulse Ox 97.7 F 67 16 168/104 H 93 05/30/18 15:39 05/30/18 15:39 05/30/18 15:39 05/30/18 15:39 05/30/18 15:39 Intake & Output 05/29/18 05/30/18 05/31/18 06:59 06:59 06:59 Intake Total 400 1450 Output Total 1400 1435 Balance -1000 15 Weight 104.3 kg 107.9 kg 107.9 kg General appearance: PRESENT: no acute distress, cooperative Eye exam: PRESENT: EOMI. ABSENT: scleral icterus Mouth exam: PRESENT: neck supple Neck exam: PRESENT: full ROM. ABSENT: JVD, lymphadenopathy, tenderness, thyromegaly, tracheal deviation Respiratory exam: PRESENT: Diminished breath sounds bilaterally ABSENT: accessory muscle use, crackles Cardiovascular exam: PRESENT: irregular rhythm. ABSENT: gallop, rubs GI/Abdominal exam: PRESENT: ascites, distended, normal bowel sounds, soft, tenderness Neurological exam: PRESENT: alert, oriented to person, oriented to place, oriented to time, oriented to situation Skin exam: PRESENT: dry - venous stasis, normal color, warm Results Laboratory Results: 05/29/18 05:06 05/30/18 05:32 05/29/18 05/30/18 18:03 05:32 Sodium 136.2 L Potassium 4.3 Chloride 102 Carbon Dioxide 21 L Anion Gap 13 BUN 61 H Creatinine 2.58 H Est GFR ( Amer) 31 L Est GFR (Non-Af Amer) 26 L Glucose 74 L Calcium 9.2 Magnesium 2.7 H Stool Occult Blood NEGATIVE 05/24/18 05/24/18 05/24/18 21:50 21:50 23:15 CK-MB (CK-2) Troponin I 0.103 0.088 NT-Pro-B Natriuret Pep 21549 H 05/25/18 05/25/18 05/25/18 05:20 11:44 17:36 CK-MB (CK-2) Troponin I 0.106 0.385 0.972 NT-Pro-B Natriuret Pep 05/26/18 05/26/18 05:53 05:53 CK-MB (CK-2) 3.70 Troponin I 1.620 NT-Pro-B Natriuret Pep Impressions: Abdomen/Pelvis CT 05/24/18 22:32 IMPRESSION: 1. Query cirrhotic liver with mild abdominopelvic ascites. 2. Diverticulosis without inflammatory changes. Chest X-Ray 05/25/18 00:00 IMPRESSION: Abnormal mediastinal contour at the AP window is nonspecific, and may represent unilateral pulmonary artery enlargement, left hilar lymphadenopathy, mass, or other. Head CT 05/25/18 00:00 IMPRESSION: NO ACUTE INTRACRANIAL IMAGING FINDINGS. EVIDENCE OF ACUTE STROKE: NO. Abdomen Ultrasound 05/26/18 10:11 IMPRESSION: FATTY LIVER. NO OTHER SIGNIFICANT FINDING. Chest CT 05/27/18 14:35 IMPRESSION: 1. Presumed mediastinal mass seen on prior chest x-ray corresponds to a dilated left pulmonary artery. All of the pulmonary arteries are significantly enlarged. Recommend correlation with any history of pulmonary ar abdifatah hypertension. 2. Shotty lymphadenopathy in the superior mediastinum. Clinical correlation recommended. 3. Chronic lung changes. 4. Partially imaged ascites about the liver and spleen. Clinical correlation recommended. Foot X-Ray 05/28/18 21:28 IMPRESSION: No acute osseous abnormality. Tiny calcaneal spurs bilaterally. Soft tissue injury or ulceration of the distal portion of the right great toe. copyright 2010 [employer]- All Rights Reserved Ankle X-Ray 05/28/18 21:29 IMPRESSION: Small calcaneal spurs bilaterally. copyright 2010 [employer]- All Rights Reserved Assessment and Plan - Diagnosis (1) Acute exacerbation of congestive heart failure Qualifiers: Heart failure type: combined systolic and diastolic Qualified Code(s): I50.43 - Acute on chronic combined systolic (congestive) and diastolic (congestive) heart failure Is this a current diagnosis for this admission?: Yes Plan: Appears euvolemic at this time. Will likely convert Lasix to p.o. Have switched his beta-laurie from the tartrate form to the succinate form of metoprolol. Will follow up on cardiology recommendations. (2) Acute renal failure superimposed on stage 3 chronic kidney disease Is this a current diagnosis for this admission?: Yes Plan: Creatinine is at baseline (3) Elevated troponin Is this a current diagnosis for this admission?: Yes Plan: We are awaiting some records from when I believe to be a hospital in [facility], for cardiology to review prior to deciding whether or not he needs further ischemic cardiac workup. - Time Time Spent with patient: 25-34 minutes
[2018-05-30] MEDS: METOPROLOL SUCCINATE 25 MG TAB.SR.24H PO SCH (22:33)
[2018-05-30] MEDS: QUETIAPINE FUMARATE 25 MG TABLET PO SCH (22:34)
--- NOTE | 2018-05-30 23:08 | Progress Note ---
Provider Note Provider Note: CARDIOLOGY PROGRESS NOTE by Dr. Radha Salmon on 05/30/2018. SUBJECTIVE: The patient continues to claim shortness of breath. But appears to be comfortable lying in bed flat. He denies any chest pain. There is no arrhythmias seen on the monitor. Still awaiting records from [place], [place]. His leg edema is marginally better. The patient denies any cough or sputum production. There is no wheezing. There is no TIA CVA symptoms. PHYSICAL EXAMINATION: The patient is chronically ill appearing. He has a dis heveled look. But appears to be in no acute distress. Selected Entries 05/30/18 19:43 Temperature 97.6 F Temperature Axillary Source Pulse Rate 68 Respiratory 16 Rate Blood Pressure 150/85 H Blood Pressure 106 Mean BP Location Right Arm BP Position Supine O2 Sat by Pulse 90 L Oximetry Oxygen Flow 2.00 Rate Oxygen Delivery Nasal Cannula Method HEAD: Head is atraumatic normocephalic. Eyes: Pupils are equal round regular reactive light accommodation extraocular movements are normal there is no congenital pallor there is no scleral icterus. Ears: External auditory canals are clear, there are no lesions of the pinna. Nose: No deviated nasal septum and no inflammation of the nasal mucous membrane. Mouth: Mucous membranes of mouth are moist tongue is moist there is no ulcers there is no bleeding from the gums. Throat: There is no redness of the oropharynx there is no exudates. Skin: There is no petechia or ecchymosis there is no skin lesions or skin rashes. Neck: Neck is supple there is no JVD carotids equal there is no bruit there is no lymphadenopathy there is no neck stiffness. There is no goiter trachea central lungs: Lungs are clear to auscultation percussion there is no accessory muscles of respiration in use. There is no rhonchi rales or wheezing. There is no chest wall tenderness. HEART: S1-S2 is heard there is no S3 gallop there is no S4 gallop S1 is of normal intensity. There is no rub. The systolic murmur in the left sternal border and apex without radiation. There is no prosthetic valve clicks heard. Abdomen: Abdomen is soft, mildly distended, no definite ascites. There is no hepatosplenomegaly. Bowel sounds well heard there is no tender areas of masses. There is no rebound guarding or rigidity. Extremities: Femorals are slightly diminished, there is no bruits. Leg pulses are diminished. There is mild pedal edema, with venous stasis dermatitis. There is no DVT or cellulitis there is no cyanosis or clubbing there is no DVT or cellulitis. There is no calf tenderness. B[employer] REDUCER: The patient is awake alert oriented 3 with no focal deficits. But in spite of this he has slow mentation. Psychiatric: The patient judgment and insight are intact and her affect is flat. Labs- All tests 24 hr 05/30/18 05:32 Sodium 136.2 L Potassium 4.3 Chloride 102 Carbon Dioxide 21 L Anion Gap 13 BUN 61 H Creatinine 2.58 H Est GFR ( Amer) 31 L Est GFR (Non-Af Amer) 26 L Glucose 74 L Calcium 9.2 Magnesium 2.7 H IMPRESSION/RECOMMENDATION: 1. Elevated troponin I. Still no definite evidence of non-ST elevation [place]. 2. 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 3. Cardiomyopathy ischemic: Moderately reduced LV ejection fraction. Continue current anti-cardia myopathy treatment. 4. Coronary history of coronary artery disease and history of coronary bypass graft surgery, and history of valve replacement: Records awaited. Nurse is trying to contact their Medical records department of the [facility] in [place]. 5. Abdominal distention: Possible cirrhosis of the liver with ascites. 6. History of valve replacement? Aortic versus carissa versus tricuspid. The patient history of IV drug abuse in the past most likely the patient had right-s ided endocarditis and probably had a tricuspid valve replacement. Await records l. 8. Chronic kidney disease stage IV. 9. Questionable HIV status. The patient's antibody to HIV 1 and HIV 2 in this admission is negative. 10. History of psychiatric disorder. Will discuss with attending physician about a possible psychiatric consult. Continue current treatment. Medications reviewed. Await records from [facility]. Medical decision making is of high complexity. 40 minutes spent on this patient more than 50% of time spent in direct patient care. Note that the patient is a full code. He states he has no relatives or any other person that he can name as his surrogate healthcare decision maker. Management plan discussed with attending physician on the case.
[2018-05-31 06:40] LABS: HEMATOCRIT 45.3 % (37.9-51.0); MEAN CORPUSCULAR HEMOGLOBIN 26.7 pg (27.0-33.4); MEAN CORPUSCULAR HGB CONC 33.1 g/dL (32.0-36.0); MEAN CORPUSCULAR VOLUME 81 fl (80-97); PLATELET COUNT 227 10^3/uL (150-450); RED BLOOD COUNT 5.61 10^6/uL (4.35-5.55); RED CELL DISTRIBUTION WIDTH 20.7 % (11.5-14.0); WHITE BLOOD COUNT 5.4 10^3/uL (4.0-10.5)
[2018-05-31] MEDS: METOPROLOL SUCCINATE 25 MG TAB.SR.24H PO SCH ×2 (09:24→22:56)
[2018-05-31] MEDS: DULOXETINE HCL 30 MG CAPSULE.DR PO SCH ×2 (09:24→17:15)
[2018-05-31] MEDS: ASPIRIN 325 MG TABLET PO SCH (09:25)
[2018-05-31] MEDS: ENOXAPARIN SODIUM INJ 100 MG/1 ML DISP.SYRIN SUBCUT SCH (09:25)
[2018-05-31] MEDS: DOCUSATE SODIUM 100 MG CAPSULE PO SCH ×2 (09:25→17:15)
[2018-05-31] MEDS: THIAMINE HCL 100 MG TABLET PO SCH (09:25)
[2018-05-31] MEDS: UREA 20% CREAM 85 GM TUBE TP SCH (09:26)
--- NOTE | 2018-05-31 16:44 | PDOC PROGRESS REPORT ---
Subjective Progress Note for:: 05/31/18 Subjective:: No adverse events overnight. No new complaints. Vital signs have been stable. He was resting comfortably on room air. No chest pain or shortness of breath. Reason For Visit: ABD DISTENSION,CAD,CHF,VEINOUS STASIS Physical Exam Vital Signs: Temp Pulse Resp BP Pulse Ox 97.3 F 71 20 155/93 H 96 05/31/18 15:16 05/31/18 15:16 05/31/18 15:16 05/31/18 15:16 05/31/18 15:16 Intake & Output 05/30/18 05/31/18 06/01/18 06:59 06:59 06:59 Intake Total 1450 1361 Output Total 1435 1375 Balance 15 -14 Weight 107.9 kg 104.8 kg General appearance: PRESENT: no acute distress, cooperative Eye exam: PRESENT: EOMI. ABSENT: scleral icterus Mouth exam: PRESENT: neck supple Neck exam: PRESENT: full ROM. ABSENT: JVD, lymphadenopathy, tenderness, thyromegaly, tracheal deviation Respiratory exam: PRESENT: Diminished breath sounds bilaterally ABSENT: accessory muscle use, crackles Cardiovascular exam: PRESENT: irregular rhythm. ABSENT: gallop, rubs GI/Abdominal exam: PRESENT: ascites, distended, normal bowel sounds, soft, tenderness Neurological exam: PRESENT: alert, oriented to person, oriented to place, oriented to time, oriented to situation Skin exam: PRESENT: dry - venous stasis, normal color, warm Results Laboratory Results: 05/31/18 05:58 05/30/18 05:32 05/31/18 05:58 WBC 5.4 RBC 5.61 H Hgb 15.0 Hct 45.3 MCV 81 MCH 26.7 L MCHC 33.1 RDW 20.7 H Plt Count 227 05/25/18 20:45 Blood Blood Culture - Final NO GROWTH IN 5 DAYS 05/25/18 20:36 Blood Blood Culture - Final NO GROWTH IN 5 DAYS 05/24/18 05/24/18 05/24/18 21:50 21:50 23:15 CK-MB (CK-2) Troponin I 0.103 0.088 NT-Pro-B Natriuret Pep 11236 H 05/25/18 05/25/18 05/25/18 05:20 11:44 17:36 CK-MB (CK-2) Troponin I 0.106 0.385 0.972 NT-Pro-B Natriuret Pep 05/26/18 05/26/18 05:53 05:53 CK-MB (CK-2) 3.70 Troponin I 1.620 NT-Pro-B Natriuret Pep Impressions: Abdomen/Pelvis CT 05/24/18 22:32 IMPRESSION: 1. Query cirrhotic liver with mild abdominopelvic ascites. 2. Diverticulosis without inflammatory changes. Chest X-Ray 05/25/18 00:00 IMPRESSION: Abnormal mediastinal contour at the AP window is nonspecific, and may represent unilateral pulmonary artery enlargement, left hilar lymphadenopathy, mass, or other. Head CT 05/25/18 00:00 IMPRESSION: NO ACUTE INTRACRANIAL IMAGING FINDINGS. EVIDENCE OF ACUTE STROKE: NO. Abdomen Ultrasound 05/26/18 10:11 IMPRESSION: FATTY LIVER. NO OTHER SIGNIFICANT FINDING. Chest CT 05/27/18 14:35 IMPRESSION: 1. Presumed mediastinal mass seen on prior chest x-ray corresponds to a dilated left pulmonary artery. All of the pulmonary arteries are significantly enlarged. Recommend correlation with any history of pulmonary artery hypertension. 2. Shotty lymphadenopathy in the superior mediastinum. Clinical correlation recommended. 3. Chronic lung changes. 4. Partially imaged ascites about the liver and spleen. Clinical correlation recommended. Foot X-Ray 05/28/18 21:28 IMPRESSION: No acute osseous abnormality. Tiny calcaneal spurs bilaterally. Soft tissue injury or ulceration of the distal portion of the right great toe. copyright 2010 [employer]- All Rights Reserved Ankle X-Ray 05/28/18 21:29 IMPRESSION: Small calcaneal spurs bilaterally. copyright 2010 [employer]- All Rights Reserved Assessment and Plan - Diagnosis (1) Acute exacerbation of congestive heart failure Qualifiers: Heart failure type: combined systolic and diastolic Qualified Code(s): I50.43 - Acute on chronic combined systolic (congestive) and diastolic (congestive) heart failure Is this a current diagnosis for this admission?: Yes Plan: Appears euvolemic at this time. Lasix p.o. Have switched his beta-laurie from the tartrate form to the succinate form of metoprolol. Will follow up on cardiology recommendations. It is noted that on this echocardiogram, his EF has reduced from 55-60% down to 35-40%, and he is noted to have reduced right vent ricular systolic function which was not previously noted. (2) Acute renal failure superimposed on stage 3 chronic kidney disease Is this a current diagnosis for this admission?: Yes Plan: Creatinine is at baseline (3) Elevated troponin Is this a current diagnosis for this admission?: Yes Plan: We are awaiting some records from when I believe to be a hospital in [facility], for cardiology to review prior to deciding whether or not he needs further ischemic cardiac workup. In particular, we are awaiting the full records to determine whether or not he is ever had any kind of a procedure on his pulmonic valve. - Time Time Spent with patient: 25-34 minutes
[2018-05-31] MEDS: QUETIAPINE FUMARATE 25 MG TABLET PO SCH (22:56)
--- NOTE | 2018-05-31 23:02 | Progress Note ---
Provider Note Provider Note: The patient is status quo. Still awaiting records from [place]. Hence Patient not not seen, and not rounded on today's
[2018-06-01] MEDS: ASPIRIN 325 MG TABLET PO SCH (10:32)
[2018-06-01] MEDS: DULOXETINE HCL 30 MG CAPSULE.DR PO SCH ×2 (10:32→17:40)
[2018-06-01] MEDS: DOCUSATE SODIUM 100 MG CAPSULE PO SCH ×2 (10:32→17:40)
[2018-06-01] MEDS: THIAMINE HCL 100 MG TABLET PO SCH (10:33)
[2018-06-01] MEDS: METOPROLOL SUCCINATE 25 MG TAB.SR.24H PO SCH ×3 (10:33→21:52)
[2018-06-01] MEDS: ENOXAPARIN SODIUM INJ 100 MG/1 ML DISP.SYRIN SUBCUT SCH (10:33)
[2018-06-01] MEDS: UREA 20% CREAM 85 GM TUBE TP SCH (10:34)
--- NOTE | 2018-06-01 15:42 | PDOC PROGRESS REPORT ---
Subjective Progress Note for:: 06/01/18 Subjective:: No adverse events overnight. No new planes. He is been getting around comfortably off oxygen. I asked him again if he had been to any other facilities besides the one in [place] that he told us about, and he said he does not think so. We got all the records at [facility] had on him, and none of them have any information about any kind of heart valve surgery. However, he insists that the median sternotomy scar that he has on his chest was from where he had valve surgery. From the best I can gather from the records from November 2011 from [place], there was no mention of any prior history of cardiac surgery, nor was there any mention any of physical exams of any scar on his chest. Patient is noted to be a very poor historian. Reason For Visit: ABD DISTENSION,CAD,CHF,VEINOUS STASIS Physical Exam Vital Signs: Temp Pulse Resp BP Pulse Ox 97.2 F 89 20 168/89 H 100 06/01/18 11:54 06/01/18 11:54 06/01/18 11:54 06/01/18 11:54 06/01/18 11:54 Intake & Output 05/31/18 06/01/18 06/02/18 06:59 06:59 06:59 Intake Total 1361 1122 450 Output Total 1375 1225 420 Balance -14 -103 30 Weight 104.8 kg 105.1 kg General appearance: PRESENT: no acute distress, cooperative Eye exam: PRESENT: EOMI. ABSENT: scleral icterus Mouth exam: PRESENT: neck supple Neck exam: PRESENT: full ROM. ABSENT: JVD, lymphadenopathy, tenderness, thyromegaly, tracheal deviation Respiratory exam: PRESENT: Diminished breath sounds bilaterally ABSENT: accessory muscle use, crackles Cardiovascular exam: PRESENT: irregular rhythm. ABSENT: gallop, rubs GI/Abdominal exam: PRESENT: ascites, distended, normal bowel sounds, soft, tenderness Neurological exam: PRESENT: alert, oriented to person, oriented to place, oriented to time, oriented to situation Skin exam: PRESENT: dry - venous stasis, normal color, warm Results Laboratory Results: 05/31/18 05:58 05/30/18 05:32 05/24/18 05/24/18 05/24/18 21:50 21:50 23:15 CK-MB (CK-2) Troponin I 0.103 0.088 NT-Pro-B Natriuret Pep 56410 H 05/25/18 05/25/18 05/25/18 05:20 11:44 17:36 CK-MB (CK-2) Troponin I 0.106 0.385 0.972 NT-Pro-B Natriuret Pep 05/26/18 05/26/18 05:53 05:53 CK-MB (CK-2) 3.70 Troponin I 1.620 NT-Pro-B Natriuret Pep Impressions: Abdomen/Pelvis CT 05/24/18 22:32 IMPRESSION: 1. Query cirrhotic liver with mild abdominopelvic ascites. 2. Diverticulosis without inflammatory changes. Chest X-Ray 05/25/18 00:00 IMPRESSION: Abnormal mediastinal contour at the AP window is nonspecific, and may represent unilateral pulmonary artery enlargement, left hilar lymphadenopathy, mass, or other. Head CT 05/25/18 00:00 IMPRESSION: NO ACUTE INTRACRANIAL IMAGING FINDINGS. EVIDENCE OF ACUTE STROKE: NO. Abdomen Ultrasound 05/26/18 10:11 IMPRESSION: FATTY LIVER. NO OTHER SIGNIFICANT FINDING. Chest CT 05/27/18 14:35 IMPRESSION: 1. Presumed mediastinal mass seen on prior chest x-ray corresponds to a dilated left pulmonary artery. All of the pulmonary arteries are significantly enlarged. Recommend correlation with any history of pulmonary artery hypertension. 2. Shotty lymphadenopathy in the superior mediastinum. Clinical correlation recommended. 3. Chronic lung changes. 4. Partially imaged ascites about the liver and spleen. Clinical correlation recommended. Foot X-Ray 05/28/18 21:28 IMPRESSION: No acute osseous abnormality. Tiny calcaneal spurs bilaterally. Soft tissue injury or ulceration of the distal portion of the right great toe. copyright 2010 [employer]- All Rights Reserved Ankle X-Ray 05/28/18 21:29 IMPRESSION: Small calcaneal spurs bilaterally. copyright 2010 [employer]- All Rights Reserved Assessment and Plan - Diagnosis (1) Acute exacerbation of congestive heart failure Qualifiers: Heart failure type: combined systolic and diastolic Qualified Code(s): I50.43 - Acute on chronic combined systolic (congestive) and diastolic (congestive) heart failure Is this a current diagnosis for this admission?: Yes Plan: Appears euvolemic at this time. Lasix p.o. Have switched his beta-laurie from the tartrate form to the succinate form of metoprolol. Will follow up on cardiology recommendations. It is noted that on this echocardiogram, his EF has reduced from 55-60% down to 35-40%, and he is noted to have reduced right ventricular systolic function which was not previously noted. (2) Acute renal failure superimposed on stage 3 chronic kidney disease Is this a current diagnosis for this admission?: Yes Plan: Creatinine is at baseline (3) Elevated troponin Is this a current diagnosis for this admission?: Yes Plan: We we have all the records on the scalp from [facility], I am waiting for cardiology to review them to see what next steps should be taken prior to consideration of any further ischemic cardiac evaluation. - Time Time Spent with patient: 25-34 minutes
[2018-06-01] MEDS: ACETAMINOPHEN 325 MG TABLET PO PRN (21:41)
[2018-06-01] MEDS: GABAPENTIN 100 MG CAPSULE PO PRN (21:42)
--- NOTE | 2018-06-01 21:46 | Progress Note ---
Provider Note Provider Note: CARDIOLOGY PROGRESS NOTE by Dr. Radha Lara on 06/01/2018. SUBJECTIVE: The patient appears to be in no acute distress. He denies any chest pain or discomfort. There is no PND orthopnea. There is no arrhythmias seen on the monitor. There is no leg edema there is chronic venous stasis dermatitis changes. In spite of multiple attempts over the last 7-8 days of trying to better get the patient's records from [facility] proved unsuccessful. The patient also has not a very good historian, and does not know much about his history. PHYSICAL EXAMINATION: The patient appears to be chronically ill and he appears to be disheveled. But he is in no acute distress. Note is hard of hearing and uses a hearing aid for the left ear. Selected Entries 06/01/18 11:54 Temperature 97.2 F Temperature Axillary Source Pulse Rate 89 Respiratory 20 Rate Blood Pressure 115 Mean BP Location Right Arm BP Position Sitting O2 Sat by Pulse 100 Oximetry Oxygen Flow 2.00 Rate Oxygen Delivery Nasal Cannula HEAD: Head is atraumatic normocephalic. Eyes: Pupils are equal round regular reactive light accommodation extraocular movements are normal there is no congenital pallor there is no scleral icterus. Ears: External auditory canals are clear, there are no lesions of the pinna. Nose: No deviated nasal septum and no inflammation of the nasal mucous membrane. Mouth: Mucous membranes of mouth are moist tongue is moist there is no ulcers there is no bleeding from the gums. Throat: There is no redness of the oropharynx there is no exudates. Skin: There is no petechia or ecchymosis there is no skin lesions or skin rashes. Neck: Neck is supple there is no JVD carotids equal there is no bruit there is no lymphadenopathy there is no neck stiffness. There is no goiter trachea central lungs: Lungs are clear to auscultation percussion there is no accessory muscles of respiration in use. There is no rhonchi rales or wheezing. There is no chest wall tenderness. HEART: S1-S2 is heard there is no S3 gallop there is no S4 gallop S1 is of normal intensity. There is no rub. The systolic murmur in the left sternal border and apex without radiation. There is no prosthetic valve clicks heard. Abdomen: Abdomen is soft, mildly distended, no definite ascites. There is no hepatosplenomegaly. Bowel sounds well heard there is no tender areas of masses. There is no rebound guarding or rigidity. Extremities: Femorals are slightly diminished, there is no bruits. Leg pulses are diminished. There is mild pedal edema, with venous stasis dermatitis. There is no DVT or cellulitis there is no cyanosis or clubbing there is no DVT or cellulitis. There is no calf tenderness. 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 But in spite of this he has slow mentation. Psychiatric: The patient judgment and insight are intact and her affect is flat.Method IMPRESSION/RECOMMENDATION: 1. Elevated troponin I. Still no definite evidence of non-ST elevation [place]. We will decrease the patient's Lovenox to DVT prophylaxis doses. 2. Acute on chronic combined systolic and diastolic left ventricular failure: Will start the patient on Lasix, and also increase the patient's Toprol-XL to 25 mg p.o. every 12 hours, and cautiously add losartan 50 mg p.o. daily. Will follow the patient renal function.. 3. Cardiomyopathy ischemic: Moderately reduced LV ejection fraction. Continue current anti-cardia myopathy treatment. 4. Coronary history of coronary artery disease and history of coronary bypass graft surgery, and history of valve replacement: Records awaited. Nurse is trying to contact their Medical records department of the medical center in [place]. 5. Abdominal distention: Possible cirrhosis of the liver with ascites. 6. History of valve replacement? Aortic versus carissa versus tricuspid. The patient history of IV drug abuse in the past most likely the patient had right- sided endocarditis and probably had a tricuspid valve replacement. Await records l. 8. Chronic kidney disease stage IV. Avoid nephrotoxic drugs. We will watch the patient renal function since the patient has been started on losartan. 9. Questionable HIV status. The patient's antibody to HIV 1 and HIV 2 in this admission is negative. 10. History of psychiatric disorder. History of bipolar disorder. Appears to be stable will discuss with attending physician about a possible psychiatric consult. Continue current treatment. Medications reviewed, and medications added. Await records from [facility]. This seems to be in unsuccessful venture, and suspect that we will not be able to get any records at all. This is due to the fact that in spite of multiple attempts to try to get the records better unsuccessful. Medical decision making is of high complexity. 40 minutes spent on this patient more than 50% of time spent in direct patient care. Note that the patient is a full code. He states he has no relatives or any other person that he can name as his surrogate healthcare decision maker. Management plan discussed with attending physician on the case.
[2018-06-02 09:53] LABS: ANION GAP 16 (5-19); BLOOD UREA NITROGEN 42 mg/dL (7-20); CALCIUM 10.2 mg/dL (8.4-10.2); CARBON DIOXIDE 19 mmol/L (22-30); CHLORIDE 104 mmol/L (98-107); GLUCOSE 84 mg/dL (75-110); POTASSIUM 4.8 mmol/L (3.6-5.0); SODIUM 138.7 mmol/L (137-145)
[2018-06-02] MEDS ORDERED: LOSARTAN POTASSIUM 50 MG TABLET PO SCH (10:00)
[2018-06-02] MEDS ORDERED: ENOXAPARIN SODIUM INJ 100 MG/1 ML DISP.SYRIN SUBCUT SCH (10:00)
[2018-06-02] MEDS: DOCUSATE SODIUM 100 MG CAPSULE PO SCH ×2 (10:45→17:10)
[2018-06-02] MEDS: DULOXETINE HCL 30 MG CAPSULE.DR PO SCH ×2 (10:45→17:10)
[2018-06-02] MEDS: ASPIRIN 325 MG TABLET PO SCH (10:45)
[2018-06-02] MEDS: UREA 20% CREAM 85 GM TUBE TP SCH (10:45)
[2018-06-02] MEDS: METOPROLOL SUCCINATE 25 MG TAB.SR.24H PO SCH ×2 (10:46→22:13)
[2018-06-02] MEDS: THIAMINE HCL 100 MG TABLET PO SCH (10:46)
[2018-06-02] MEDS: FUROSEMIDE 40 MG TABLET PO SCH (10:46)
[2018-06-02] MEDS: QUETIAPINE FUMARATE 25 MG TABLET PO SCH (13:57)
[2018-06-02] MEDS: HYDRALAZINE HCL INJ/PF 20 MG/1 ML SDV IV PRN (13:57)
--- NOTE | 2018-06-02 15:21 | PDOC PROGRESS REPORT ---
Subjective Progress Note for:: 06/02/18 Subjective:: No adverse events overnight. No new complaints. Vital signs been stable. Eating and drink without difficulty. Stable on room air. Reason For Visit: ABD DISTENSION,CAD,CHF,VEINOUS STASIS Physical Exam Vital Signs: Temp Pulse Resp BP Pulse Ox 97.3 F 68 20 174/86 H 98 06/02/18 12:00 06/02/18 14:00 06/02/18 12:00 06/02/18 12:00 06/02/18 12:00 Intake & Output 06/01/18 06/02/18 06/03/18 06:59 06:59 06:59 Intake Total 1122 1179 50 Output Total 1225 820 380 Balance -103 359 -330 Weight 105.1 kg 105.1 kg General appearance: PRESENT: no acute distress, cooperative Eye exam: PRESENT: EOMI. ABSENT: scleral icterus Mouth exam: PRESENT: neck supple Neck exam: PRESENT: full ROM. ABSENT: JVD, lymphadenopathy, tenderness, thyromegaly, tracheal deviation Respiratory exam: PRESENT: Diminished breath sounds bilaterally ABSENT: accessory muscle use, crackles Cardiovascular exam: PRESENT: irregular rhythm. ABSENT: gallop, rubs GI/Abdominal exam: PRESENT: ascites, distended, normal bowel sounds, soft, tenderness Neurological exam: PRESENT: alert, oriented to person, oriented to place, oriented to time, oriented to situation Skin exam: PRESENT: dry - venous stasis, normal color, warm Results Laboratory Results: 05/31/18 05:58 06/02/18 09:03 06/02/18 09:03 Sodium 138.7 Potassium 4.8 Chloride 104 Carbon Dioxide 19 L Anion Gap 16 BUN 42 H Creatinine 1.71 H Est GFR ( Amer) 50 L Est GFR (Non-Af Amer) 41 L Glucose 84 Calcium 10.2 05/24/18 05/24/18 05/24/18 21:50 21:50 23:15 CK-MB (CK-2) Troponin I 0.103 0.088 NT-Pro-B Natriuret Pep 96472 H 05/25/18 05/25/18 05/25/18 05:20 11:44 17:36 CK-MB (CK-2) Troponin I 0.106 0.385 0.972 NT-Pro-B Natriuret Pep 05/26/18 05/26/18 05:53 05:53 CK-MB (CK-2) 3.70 Troponin I 1.620 NT-Pro-B Natriuret Pep Impressions: Abdomen/Pelvis CT 05/24/18 22:32 IMPRESSION: 1. Query cirrhotic liver with mild abdominopelvic ascites. 2. Diverticulosis without inflammatory changes. Chest X-Ray 05/25/18 00:00 IMPRESSION: Abnormal mediastinal contour at the AP window is nonspecific, and may represent unilateral pulmonary artery enlargement, left hilar lymphadenopathy, mass, or other. Head CT 05/25/18 00:00 IMPRESSION: NO ACUTE INTRACRANIAL IMAGING FINDINGS. EVIDENCE OF ACUTE STROKE: NO. Abdomen Ultrasound 05/26/18 10:11 IMPRESSION: FATTY LIVER. NO OTHER SIGNIFICANT FINDING. Chest CT 05/27/18 14:35 IMPRESSION: 1. Presumed mediastinal mass seen on prior chest x-ray corresponds to a dilated left pulmonary artery. All of the pulmonary arteries are significantly enlarged. Recommend correlation with any history of pulmonary artery hypertension. 2. Shotty lymphadenopathy in the superior mediastinum. Clinical correlation recommended. 3. Chronic lung changes. 4. Partially imaged ascites about the liver and spleen. Clinical correlation recommended. Foot X-Ray 05/28/18 21:28 IMPRESSION: No acute osseous abnormality. Tiny calcaneal spurs bilaterally. Soft tissue injury or ulceration of the distal portion of the right great toe. copyright 2010 [employer]- All Rights Reserved Ankle X-Ray 05/28/18 21:29 IMPRESSION: Small calcaneal spurs bilaterally. copyright 2010 [employer]- All Rights Reserved Assessment and Plan - Diagnosis (1) Acute exacerbation of congestive heart failure Qualifiers: Heart failure type: combined systolic and diastolic Qualified Code(s): I50.43 - Acute on chronic combined systolic (congestive) and diastolic (congestive) heart failure Is this a current diagnosis for this admission?: Yes Plan: Appears euvolemic at this time. Lasix p.o. Have switched his beta-laurie from the tartrate form to the succinate form of metoprolol. Will follow up on cardiology recommendations. It is noted that on this echocardiogram, his EF has reduced from 55-60% down to 35-40%, and he is noted to have reduced right ventricular systolic function which was not previously noted. (2) Acute renal failure superimposed on stage 3 chronic kidney disease Is this a current diagnosis for this admission?: Yes Plan: Creatinine is at baseline (3) Elevated troponin Is this a current diagnosis for this admission?: Yes Plan: We we have all the records on the scalp from [facility], I am waiting for cardiology to review them to see what next steps should be taken prior to consideration of any further ischemic cardiac evaluation. At this point, we know he is obviously had coronary artery bypass grafting because he is got postsurgical changes on imaging consistent with that, but we got no evidence of any prior valve surgery. We need to decide what the next step in his workup is going to be. - Time Time Spent with patient: 25-34 minutes
--- NOTE | 2018-06-02 18:42 | Progress Note ---
Provider Note Provider Note: CARDIOLOGY PROGRESS NOTE by Dr. Radha Salmon on 06/02/2018. SUBJECTIVE: The patient continues to be status quo. No records available as yet. The patient denies any chest pain or discomfort. He complains of shortness of breath, which is slightly improved. He has no PND orthopnea. And he is able to lie down flat. His chronic venous stasis dermatitis changes in his legs, but no leg edema. His GFR is improved. His blood pressure still is not very well controlled with the elevated diastolic blood pressure. There is no TIA CVA symptoms. There is no chest pain or discomfort. There is no arrhythmias seen on the monitor. PHYSICAL EXAMINATION: The patient appears to be chronically ill and disheveled. He is in no acute distress. Selected Entries 05/31/18 23:39 Temperature 97.9 F Temperature Axillary Source Pulse Rate 73 Respiratory 16 Rate Blood Pressure 143/102 H Blood Pressure 115 Mean BP Location Right Arm BP Position Sitting O2 Sat by Pulse 95 Oximetry Oxygen Delivery Room Air Method HEAD: Head is atraumatic normocephalic. Eyes: Pupils are equal round regular reactive light accommodation extraocular movements are normal there is no congenital pallor there is no scleral icterus. Ears: External auditory canals are clear, there are no lesions of the pinna. Nose: No deviated nasal septum and no inflammation of the nasal mucous membrane. Mouth: Mucous membranes of mouth are moist tongue is moist there is no ulcers there is no bleeding from the gums. Throat: There is no redness of the oropharynx there is no exudates. Skin: There is no petechia or ecchymosis there is no skin lesions or skin rashes. Neck: Neck is supple there is no JVD carotids equal there is no bruit there is no lymphadenopathy there is no neck stiffness. There is no goiter trachea central lungs: Lungs are clear to auscultation percussion there is no accessory muscles of respiration in use. There is no rhonchi rales or wheezing. There is no chest wall tenderness. HEART: S1-S2 is heard there is no S3 gallop there is no S4 gallop S1 is of normal intensity. There is no rub. The systolic murmur in the left sternal border and apex without radiation. There is no prosthetic valve clicks heard. Abdomen: Abdomen is soft, mildly distended, no definite ascites. There is no hepatosplenomegaly. Bowel sounds well heard there is no tender areas of masses. There is no rebound guarding or rigidity. Extremities: Femorals are slightly diminished, there is no bruits. Leg pulses are diminished. There is mild pedal edema, with venous stasis dermatitis. There is no DVT or cellulitis there is no cyanosis or clubbing there is no DVT or cellulitis. There is no calf tenderness. 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 But in spite of this he has slow mentation. Psychiatric: The patient judgment and insight are intact and her affect is flat.Method 06/02/18 09:03 Sodium 138.7 Potassium 4.8 Chloride 104 Carbon Dioxide 19 L Anion Gap 16 BUN 42 H Creatinine 1.71 H Est GFR (Non-Af Amer) 41 L Glucose 84 Calcium 10.2 IMPRESSION/RECOMMENDATION: 1. Elevated troponin I. Still no definite evidence of non-ST elevation [place]. We will decrease the patient's Lovenox to DVT prophylaxis doses. 2. Acute on chronic combined systolic and diastolic left ventricular failure: Will start the patient on Lasix, and also increase the patient's Toprol-XL to 25 mg p.o. every 12 hours, and cautiously add losartan 50 mg p.o. daily. Will follow the patient renal function.. 3. Cardiomyopathy ischemic: Moderately reduced LV ejection fraction. Continue current anti-cardia myopathy treatment. 4. Coronary history of coronary artery disease and history of coronary bypass graft surgery, and history of valve replacement: Records awaited. Nurse is trying to contact their Medical records department of the [facility] in [place]. 5. Abdominal distention: Possible cirrhosis of the liver with ascites. 6. History of valve replacement? Aortic versus carissa versus tricuspid. The patient history of IV drug abuse in the past most likely the patient had right- sided endocarditis and probably had a tricuspid valve replacement. Await records l. 8. HYPERTENSION: Blood pressure still not well controlled. We will increase the patient's Cozaar. 9.Chronic kidney disease stage IV. Avoid nephrotoxic drugs. We will watch the patient renal function since the patient has been started on losartan. Note the chronic kidney disease kidney disease is improved the GFR is now 41, and hence the patient is at CKD stage III. 10. Questionable HIV status. The patient's antibody to HIV 1 and HIV 2 in this admission is negative. 11. History of psychiatric disorder. History of bipolar disorder. Appears to be stable will discuss with attending physician about a possible psychiatric consult. Continue current treatment. Medications reviewed, and medications added. Await records from [facility]. This seems to be in unsuccessful venture, and suspect that we will not be able to get any records at all. This is due to the fact that in spite of multiple attempts to try to get the records better unsuccessful. Medical decision making is of high complexity. 40 minutes spent on this patient more than 50% of time spent in direct patient care. Note that the patient is a full code. He states he has no relatives or any other person that he can name as his surrogate healthcare decision maker. Management plan discussed with attending physician on the case. .
[2018-06-02] MEDS: GABAPENTIN 100 MG CAPSULE PO PRN (22:13)
[2018-06-02] MEDS: LOSARTAN POTASSIUM 50 MG TABLET PO SCH (22:13)
[2018-06-03 07:54] LABS: HEMATOCRIT 48.5 % (37.9-51.0); HEMOGLOBIN 15.8 g/dL (13.5-17.0); MEAN CORPUSCULAR HEMOGLOBIN 26.2 pg (27.0-33.4); MEAN CORPUSCULAR HGB CONC 32.6 g/dL (32.0-36.0); MEAN CORPUSCULAR VOLUME 80 fl (80-97); PLATELET COUNT 224 10^3/uL (150-450); RED BLOOD COUNT 6.04 10^6/uL (4.35-5.55); RED CELL DISTRIBUTION WIDTH 21.2 % (11.5-14.0); WHITE BLOOD COUNT 5.9 10^3/uL (4.0-10.5)
[2018-06-03] MEDS: HYDRALAZINE HCL INJ/PF 20 MG/1 ML SDV IV PRN (08:01)
[2018-06-03] MEDS: DOCUSATE SODIUM 100 MG CAPSULE PO SCH ×2 (10:37→17:46)
[2018-06-03] MEDS: METOPROLOL SUCCINATE 25 MG TAB.SR.24H PO SCH ×2 (10:37→21:45)
[2018-06-03] MEDS: DULOXETINE HCL 30 MG CAPSULE.DR PO SCH ×2 (10:37→17:46)
[2018-06-03] MEDS: LOSARTAN POTASSIUM 50 MG TABLET PO SCH ×2 (10:37→21:48)
[2018-06-03] MEDS: ASPIRIN 325 MG TABLET PO SCH (10:38)
[2018-06-03] MEDS: UREA 20% CREAM 85 GM TUBE TP SCH (10:38)
[2018-06-03] MEDS: THIAMINE HCL 100 MG TABLET PO SCH (10:38)
[2018-06-03] MEDS: FUROSEMIDE 40 MG TABLET PO SCH (10:39)
[2018-06-03] MEDS: ENOXAPARIN SODIUM INJ 30 MG/0.3 ML DISP.SYRIN SUBCUT SCH (10:39)
[2018-06-03] MEDS: QUETIAPINE FUMARATE 25 MG TABLET PO SCH (13:16)
--- NOTE | 2018-06-03 14:53 | PDOC PROGRESS REPORT ---
Subjective Progress Note for:: 06/03/18 Subjective:: No adverse events overnight. No new complaints. Vital signs been stable. Eating and drink without difficulty. Stable on room air. He still cannot recall receiving any kind of medical treatment and any other facility other than [facility]. Reason For Visit: ABD DISTENSION,CAD,CHF,VEINOUS STASIS Physical Exam Vital Signs: Temp Pulse Resp BP Pulse Ox 98.3 F 64 22 H 169/73 H 98 06/03/18 12:00 06/03/18 12:00 06/03/18 12:00 06/03/18 12:00 06/03/18 12:00 Intake & Output 06/02/18 06/03/18 06/04/18 06:59 06:59 06:59 Intake Total 1179 410 Output Total 820 2025 Balance 359 -1615 Weight 105.1 kg 106.2 kg General appearance: PRESENT: no acute distress, cooperative Eye exam: PRESENT: EOMI. ABSENT: scleral icterus Mouth exam: PRESENT: neck supple Neck exam: PRESENT: full ROM. ABSENT: JVD, lymphadenopathy, tenderness, thyromegaly, tracheal deviation Respiratory exam: PRESENT: Diminished breath sounds bilaterally ABSENT: accessory muscle use, crackles Cardiovascular exam: PRESENT: irregular rhythm. ABSENT: gallop, rubs GI/Abdominal exam: PRESENT: ascites, distended, normal bowel sounds, soft, tenderness Neurological exam: PRESENT: alert, oriented to person, oriented to place, oriented to time, oriented to situation Skin exam: PRESENT: dry - venous stasis, normal color, warm Results Laboratory Results: 06/03/18 06:50 06/02/18 09:03 06/03/18 06:50 WBC 5.9 RBC 6.04 H Hgb 15.8 Hct 48.5 MCV 80 MCH 26.2 L MCHC 32.6 RDW 21.2 H Plt Count 224 05/24/18 05/24/18 05/24/18 21:50 21:50 23:15 CK-MB (CK-2) Troponin I 0.103 0.088 NT-Pro-B Natriuret Pep 18184 H 05/25/18 05/25/18 05/25/18 05:20 11:44 17:36 CK-MB (CK-2) Troponin I 0.106 0.385 0.972 NT-Pro-B Natriuret Pep 05/26/18 05/26/18 05:53 05:53 CK-MB (CK-2) 3.70 Troponin I 1.620 NT-Pro-B Natriuret Pep Impressions: Abdomen/Pelvis CT 05/24/18 22:32 IMPRESSION: 1. Query cirrhotic liver with mild abdominopelvic ascites. 2. Diverticulosis without inflammatory changes. Chest X-Ray 05/25/18 00:00 IMPRESSION: Abnormal mediastinal contour at the AP window is nonspecific, and may represent unilateral pulmonary artery enlargement, left hilar lymphadenopathy, mass, or other. Head CT 05/25/18 00:00 IMPRESSION: NO ACUTE INTRACRANIAL IMAGING FINDINGS. EVIDENCE OF ACUTE STROKE: NO. Abdomen Ultrasound 05/26/18 10:11 IMPRESSION: FATTY LIVER. NO OTHER SIGNIFICANT FINDING. Chest CT 05/27/18 14:35 IMPRESSION: 1. Presumed mediastinal mass seen on prior chest x-ray corresponds to a dilated left pulmonary artery. All of the pulmonary arteries are significantly enlarged. Recommend correlation with any history of pulmonary artery hypertension. 2. Shotty lymphadenopathy in the superior mediastinum. Clinical correlation recommended. 3. Chronic lung changes. 4. Partially imaged ascites about the liver and spleen. Clinical correlation recommended. Foot X-Ray 05/28/18 21:28 IMPRESSION: No acute osseous abnormality. Tiny calcaneal spurs bilaterally. Soft tissue injury or ulceration of the distal portion of the right great toe. copyright 2010 [employer]- All Rights Reserved Ankle X-Ray 05/28/18 21:29 IMPRESSION: Small calcaneal spurs bilaterally. copyright 2010 [employer]- All Rights Reserved Assessment and Plan - Diagnosis (1) Acute exacerbation of congestive heart failure Qualifiers: Heart failure type: combined systolic and diastolic Qualified Code(s): I50.43 - Acute on chronic combined systolic (congestive) and diastolic (congestive) heart failure Is this a current diagnosis for this admission?: Yes Plan: Resolved. Appears euvolemic at this time. Lasix p.o. Have switched his beta- laurie from the tartrate form to the succinate form of metoprolol. Will follow up on cardiology recommendations. It is noted that on this echocardiogram, his EF has reduced from 55-60% down to 35-40%, and he is noted to have reduced right ventricular systolic function which was not previously noted. (2) Acute renal failure superimposed on stage 3 chronic kidney disease Is this a current diagnosis for this admission?: Yes Plan: Resolved. Creatinine is at baseline (3) Elevated troponin Is this a current diagnosis for this admission?: Yes Plan: We we have all the records from [facility], I am waiting for cardiology to review them to see what next steps should be taken prior to consideration of any further ischemic cardiac evaluation. At this point, we know he is obviously had coronary artery bypass grafting because he is got postsurgical changes on imaging consistent with that, but we got no evidence in the chart of any prior valve surgery. We need to decide what the next step in his workup is going to be. If the decision is made to manage him medically then we can send him home. He will likely need some sort of transitional follow-up program and possibly home health because he is likely not going to be able to manage his medical problems on his own. - Time Time Spent with patient: 25-34 minutes
[2018-06-03] MEDS: GABAPENTIN 100 MG CAPSULE PO PRN (21:50)
--- NOTE | 2018-06-03 23:01 | Progress Note ---
Provider Note Provider Note: Cardiology progress note by Dr. Radha Lara on 06/03/2018.
[2018-06-04] MEDS: LOSARTAN POTASSIUM 50 MG TABLET PO SCH ×2 (09:27→23:13)
[2018-06-04] MEDS: DOCUSATE SODIUM 100 MG CAPSULE PO SCH ×2 (09:27→16:59)
[2018-06-04] MEDS: ASPIRIN 325 MG TABLET PO SCH (09:27)
[2018-06-04] MEDS: DULOXETINE HCL 30 MG CAPSULE.DR PO SCH ×2 (09:27→16:59)
[2018-06-04] MEDS: THIAMINE HCL 100 MG TABLET PO SCH (09:27)
[2018-06-04] MEDS: UREA 20% CREAM 85 GM TUBE TP SCH (09:28)
[2018-06-04] MEDS: FUROSEMIDE 40 MG TABLET PO SCH (09:28)
[2018-06-04] MEDS: ENOXAPARIN SODIUM INJ 30 MG/0.3 ML DISP.SYRIN SUBCUT SCH (09:28)
[2018-06-04] MEDS: METOPROLOL SUCCINATE 25 MG TAB.SR.24H PO SCH ×2 (09:34→23:13)
[2018-06-04] MEDS: QUETIAPINE FUMARATE 25 MG TABLET PO SCH (12:09)
[2018-06-04] MEDS: GABAPENTIN 100 MG CAPSULE PO PRN ×2 (14:50→23:13)
--- NOTE | 2018-06-04 21:42 | Progress Note ---
Provider Note Provider Note: CARDIOLOGY PROGRESS NOTE by Dr. Radha Salmon on 06/04/2018.
[2018-06-05 05:33] LABS: HEMATOCRIT 45.2 % (37.9-51.0); HEMOGLOBIN 14.9 g/dL (13.5-17.0); MEAN CORPUSCULAR HEMOGLOBIN 26.4 pg (27.0-33.4); MEAN CORPUSCULAR VOLUME 80 fl (80-97); PLATELET COUNT 173 10^3/uL (150-450); RED BLOOD COUNT 5.64 10^6/uL (4.35-5.55); RED CELL DISTRIBUTION WIDTH 21.2 % (11.5-14.0); WHITE BLOOD COUNT 6.2 10^3/uL (4.0-10.5)
[2018-06-05 06:12] LABS: ALBUMIN 3.3 g/dL (3.5-5.0); ANION GAP 10 (5-19); BLOOD UREA NITROGEN 36 mg/dL (7-20); CARBON DIOXIDE 23 mmol/L (22-30); CHLORIDE 103 mmol/L (98-107); GLUCOSE 88 mg/dL (75-110); PHOSPHORUS 3.6 mg/dL (2.5-4.5); SODIUM 136.4 mmol/L (137-145)
[2018-06-05] MEDS: ASPIRIN 325 MG TABLET PO SCH (09:17)
[2018-06-05] MEDS: ENOXAPARIN SODIUM INJ 30 MG/0.3 ML DISP.SYRIN SUBCUT SCH (09:17)
[2018-06-05] MEDS: FUROSEMIDE 40 MG TABLET PO SCH (09:17)
[2018-06-05] MEDS: METOPROLOL SUCCINATE 25 MG TAB.SR.24H PO SCH ×2 (09:17→22:55)
[2018-06-05] MEDS: LOSARTAN POTASSIUM 50 MG TABLET PO SCH ×2 (09:17→22:55)
[2018-06-05] MEDS: DOCUSATE SODIUM 100 MG CAPSULE PO SCH ×2 (09:17→17:17)
[2018-06-05] MEDS: THIAMINE HCL 100 MG TABLET PO SCH (09:17)
[2018-06-05] MEDS: UREA 20% CREAM 85 GM TUBE TP SCH (09:18)
[2018-06-05] MEDS: DULOXETINE HCL 30 MG CAPSULE.DR PO SCH ×2 (09:18→17:17)
[2018-06-05] MEDS: QUETIAPINE FUMARATE 25 MG TABLET PO SCH (11:06)
[2018-06-05] MEDS: GABAPENTIN 100 MG CAPSULE PO PRN (15:47)
--- NOTE | 2018-06-05 19:44 | PDOC PROGRESS REPORT ---
Subjective Progress Note for:: 06/04/18 Subjective:: The patient is resting in his bed. Unfortunately he is still requiring oxygen and would like to be weaned off of it prior to leaving the hospital. He states he still gets extremely short of breath when he ambulates. He has had no fever or shaking chills. No chest pain, shortness of breath or cough. No nausea vomiting or diarrhea. No urinary complaints. Reason For Visit: ABD DISTENSION,CAD,CHF,VEINOUS STASIS Physical Exam Vital Signs: Temp Pulse Resp BP Pulse Ox 97.4 F 62 16 119/78 95 06/05/18 12:01 06/05/18 14:00 06/05/18 12:01 06/05/18 12:01 06/05/18 12:01 Intake & Output 06/04/18 06/05/18 06/06/18 06:59 06:59 06:59 Intake Total 2160 646 616 Output Total 2475 825 525 Balance -315 -179 91 Weight 102.9 kg 102.8 kg 102.8 kg General appearance: PRESENT: thin, other - Chronically ill-appearing Head exam: PRESENT: atraumatic, normocephalic Respiratory exam: PRESENT: decreased breath sounds. ABSENT: rales, rhonchi, wheezes Cardiovascular exam: PRESENT: RRR. ABSENT: diastolic murmur, rubs, systolic murmur GI/Abdominal exam: PRESENT: normal bowel sounds, soft. ABSENT: distended, guarding, mass, organolmegaly, rebound, tenderness Rectal exam: PRESENT: deferred Extremities exam: PRESENT: full ROM. ABSENT: calf tenderness, clubbing, pedal edema Neurological exam: PRESENT: alert, awake, oriented to person, oriented to place, oriented to time, oriented to situation, CN II-XII grossly intact. ABSENT: motor sensory deficit Psychiatric exam: PRESENT: appropriate affect, normal mood. ABSENT: homicidal ideation, suicidal ideation Skin exam: PRESENT: dry, intact, warm. ABSENT: cyanosis, rash Results Laboratory Results: 06/05/18 04:38 06/05/18 04:38 06/05/18 06/05/18 04:38 04:38 WBC 6.2 RBC 5.64 H Hgb 14.9 Hct 45.2 MCV 80 MCH 26.4 L MCHC 33.0 RDW 21.2 H Plt Count 173 Sodium 136.4 L Potassium 4.0 Chloride 103 Carbon Dioxide 23 Anion Gap 10 BUN 36 H Creatinine 1.57 H Est GFR ( Amer) 55 L Est GFR (Non-Af Amer) 45 L Glucose 88 Calcium 9.0 Phosphorus 3.6 Magnesium 2.3 Albumin 3.3 L 05/24/18 05/24/18 05/24/18 21:50 21:50 23:15 CK-MB (CK-2) Troponin I 0.103 0.088 NT-Pro-B Natriuret Pep 85774 H 05/25/18 05/25/18 05/25/18 05:20 11:44 17:36 CK-MB (CK-2) Troponin I 0.106 0.385 0.972 NT-Pro-B Natriuret Pep 05/26/18 05/26/18 06/05/18 05:53 05:53 04:38 CK-MB (CK-2) 3.70 Troponin I 1.620 NT-Pro-B Natriuret Pep 4450 H Impressions: Abdomen/Pelvis CT 05/24/18 22:32 IMPRESSION: 1. Query cirrhotic liver with mild abdominopelvic ascites. 2. Diverticulosis without inflammatory changes. Chest X-Ray 05/25/18 00:00 IMPRESSION: Abnormal mediastinal contour at the AP window is nonspecific, and may represent unilateral pulmonary artery enlargement, left hilar lymphadenopathy, mass, or other. Head CT 05/25/18 00:00 IMPRESSION: NO ACUTE INTRACRANIAL IMAGING FINDINGS. EVIDENCE OF ACUTE STROKE: NO. Abdomen Ultrasound 05/26/18 10:11 IMPRESSION: FATTY LIVER. NO OTHER SIGNIFICANT FINDING. Chest CT 05/27/18 14:35 IMPRESSION: 1. Presumed mediastinal mass seen on prior chest x-ray corresponds to a dilated left pulmonary artery. All of the pulmonary arteries are sign ificantly enlarged. Recommend correlation with any history of pulmonary artery hypertension. 2. Shotty lymphadenopathy in the superior mediastinum. Clinical correlation recommended. 3. Chronic lung changes. 4. Partially imaged ascites about the liver and spleen. Clinical correlation recommended. Foot X-Ray 05/28/18 21:28 IMPRESSION: No acute osseous abnormality. Tiny calcaneal spurs bilaterally. Soft tissue injury or ulceration of the distal portion of the right great toe. copyright 2011 [employer]- All Rights Reserved Ankle X-Ray 05/28/18 21:29 IMPRESSION: Small calcaneal spurs bilaterally. copyright 2011 [employer]- All Rights Reserved Assessment and Plan - Diagnosis (1) Acute respiratory failure Is this a current diagnosis for this admission?: Yes Plan: The patient's oxygen saturations have dropped below 88% at the beginning of this hospitalization. He had increased work of breathing and was quite dyspneic. His acute respiratory failure is due to his congestive heart failure as well as COPD. (2) Acute combined systolic and diastolic congestive heart failure, NYHA class 4 Is this a current diagnosis for this admission?: Yes Plan: He has been successfully diuresed. He has been followed closely by the cardiology service. Currently appears to be euvolemic (3) Valvular heart disease Is this a current diagnosis for this admission?: Yes Plan: Noted on echocardiogram. At this point he is stable. (4) COPD (chronic obstructive pulmonary disease) Is this a current diagnosis for this admission?: Yes Plan: No signs of acute exacerbation we will continue to monitor for signs of bronchospasm. (5) Peripheral vascular disease Is this a current diagnosis for this admission?: Yes Plan: Continue aspirin. I am not sure why he is not on a statin medication. It looks like it was mentioned in the initial cardiology consult. It is not listed as an allergy. Would follow-up and see because he may benefit from statin therapy in light of his heart disease and peripheral vascular disease. (6) Hepatic congestion Is this a current diagnosis for this admission?: Yes Plan: Improved (7) Elevated troponin Is this a current diagnosis for this admission?: Yes Plan: At this point medical management is recommended. (8) Cardiomyopathy, ischemic Is this a current diagnosis for this admission?: Yes Plan: He has been medically managed. (9) Coronary artery disease Is this a current diagnosis for this admission?: Yes Plan: He is on appropriate medical therapy except for a statin medication. This could be further discussed with him. I reviewed the records as best I can and I cannot see why he cannot be on one unless he refused. I am dictating this late in the day we could follow up with this tomorrow. (10) Acute on chronic renal failure Is this a current diagnosis for this admission?: Yes Plan: Much improved and likely back to his baseline. (11) Hyponatremia Is this a current diagnosis for this admission?: Yes Plan: This is quite mild. (12) Hyperkalemia Is this a current diagnosis for this admission?: Yes Plan: Likely secondary to acute renal failure. Resolved (13) Full code status Is this a current diagnosis for this admission?: Yes - Time Time Spent with patient: 35 or more minutes - Inpatient Certification Medical Necessity: Other - Inpatient hospitalization remains necessary. Overall the patient continues to need oxygen and would like to be you weaned off of it prior to discharge. He may need home oxygen in light of his cardiac issues going forward. We will try to qualify him tomorrow.
--- NOTE | 2018-06-05 19:50 | PDOC PROGRESS REPORT ---
Subjective Progress Note for:: 06/05/18 Subjective:: The patient is resting in his bed. We discussed his disposition plans. Unfortunately when he ambulates his oxygen saturation drops and I have asked the discharge planners to start trying to set up home oxygen. Unfortunately the patient lives alone. He has no family and he has no close friends. We discussed possible rehab and we even discussed getting palliative care to come in to the house. At this point he does not want anybody coming into the home and he is not ready for that yet. However quite concerned about his ability to care for himself. He thinks that he will do fine if he has the oxygen. He does state that he is going to be compliant with his medications going forward but he is worried about being compliant with a low-salt diet. We discussed this at length and hopefully he will try to at least cut back. Overall he states that he is feeling much better. He denies fever or chills. No chest pain, no increased shortness of breath or cough. No nausea vomiting or diarrhea. No urinary complaints. Reason For Visit: ABD DISTENSION,CAD,CHF,VEINOUS STASIS Physical Exam Vital Signs: Temp Pulse Resp BP Pulse Ox 97.4 F 62 16 119/78 95 06/05/18 12:01 06/05/18 14:00 06/05/18 12:01 06/05/18 12:01 06/05/18 12:01 Intake & Output 06/04/18 06/05/18 06/06/18 06:59 06:59 06:59 Intake Total 2160 646 616 Output Total 5375 825 525 Balance -315 -179 91 Weight 102.9 kg 102.8 kg 102.8 kg General appearance: PRESENT: no acute distress, thin, other - Chronically ill- appearing. He is receiving oxygen via nasal cannula Head exam: PRESENT: atraumatic, normocephalic Respiratory exam: PRESENT: clear to auscultation torsten. ABSENT: rales, rhonchi, wheezes Cardiovascular exam: PRESENT: RRR. ABSENT: diastolic murmur, rubs, systolic murmur GI/Abdominal exam: PRESENT: normal bowel sounds, soft. ABSENT: distended, guarding, mass, organolmegaly, rebound, tenderness Rectal exam: PRESENT: deferred Extremities exam: PRESENT: full ROM. ABSENT: calf tenderness, clubbing, pedal edema Neurological exam: PRESENT: alert, awake, oriented to person, oriented to place, oriented to time, oriented to situation, CN II-XII grossly intact. ABSENT: motor sensory deficit Psychiatric exam: PRESENT: appropriate affect, normal mood. ABSENT: homicidal ideation, suicidal ideation Skin exam: PRESENT: dry, intact, warm. ABSENT: cyanosis, rash Results Laboratory Results: 06/05/18 04:38 06/05/18 04:38 06/05/18 06/05/18 04:38 04:38 WBC 6.2 RBC 5.64 H Hgb 14.9 Hct 45.2 MCV 80 MCH 26.4 L MCHC 33.0 RDW 21.2 H Plt Count 173 Sodium 136.4 L Potassium 4.0 Chloride 103 Carbon Dioxide 23 Anion Gap 10 BUN 36 H Creatinine 1.57 H Est GFR ( Amer) 55 L Est GFR (Non-Af Amer) 45 L Glucose 88 Calcium 9.0 Phosphorus 3.6 Magnesium 2.3 Albumin 3.3 L 05/24/18 05/24/18 05/24/18 21:50 21:50 23:15 CK-MB (CK-2) Troponin I 0.103 0.088 NT-Pro-B Natriuret Pep 24524 H 05/25/18 05/25/18 05/25/18 05:20 11:44 17:36 CK-MB (CK-2) Troponin I 0.106 0.385 0.972 NT-Pro-B Natriuret Pep 05/26/18 05/26/18 06/05/18 05:53 05:53 04:38 CK-MB (CK-2) 3.70 Troponin I 1.620 NT-Pro-B Natriuret Pep 4450 H Impressions: Abdomen/Pelvis CT 05/24/18 22:32 IMPRESSION: 1. Query cirrhotic liver with mild abdominopelvic ascites. 2. Diverticulosis without inflammatory changes. Chest X-Ray 05/25/18 00:00 IMPRESSION: Abnormal mediastinal contour at the AP window is nonspecific, and may represent unilateral pulmonary artery enlargement, left hilar lymphadenopathy, mass, or other. Head CT 05/25/18 00:00 IMPRESSION: NO ACUTE INTRACRANIAL IMAGING FINDINGS. EVIDENCE OF ACUTE STROKE: NO. Abdomen Ultrasound 05/26/18 10:11 IMPRESSION: FATTY LIVER. NO OTHER SIGNIFICANT FINDING. Chest CT 05/27/18 14:35 IMPRESSION: 1. Presumed mediastinal mass seen on prior chest x-ray corresponds to a dilated left pulmonary artery. All of the pulmonary arteries are significantly enlarged. Recommend correlation with any history of pulmonary artery hypertension. 2. Shotty lymphadenopathy in the superior mediastinum. Clinical correlation recommended. 3. Chronic lung changes. 4. Partially imaged ascites about the liver and spleen. Clinical correlation recommended. Foot X-Ray 05/28/18 21:28 IMPRESSION: No acute osseous abnormality. Tiny calcaneal spurs bilaterally. Soft tissue injury or ulceration of the distal portion of the right great toe. copyright 2010 [employer]- All Rights Reserved Ankle X-Ray 05/28/18 21:29 IMPRESSION: Small calcaneal spurs bilaterally. copyright 2010 [employer]- All Rights Reserved Assessment and Plan - Diagnosis (1) Acute respiratory failure Qualifiers: Respiratory failure complication: hypoxia Qualified Code(s): J96.01 - Acute respiratory failure with hypoxia Is this a current diagnosis for this admission?: Yes Plan: The patient's oxygen saturations have dropped below 88% at the beginning of this hospitalization. He had increased work of breathing and was quite dyspneic. His acute respiratory failure is due to his congestive heart failure as well as COPD. The patient's oxygen saturation does drop when ambulating. Please see the nursing notes for oxygen qualifications. His acute respiratory failure is due to his severe heart failure and cardiomyopathy in the setting of underlying COPD. He will require oxygen going forward (2) Acute combined systolic and diastolic congestive heart failure, NYHA class 4 Is this a current diagnosis for this admission?: Yes Plan: The patient has a left ventricular ejection fraction of 35% with severe right- sided failure. He has been successfully diuresed. He has been followed closely by the cardiology service. Currently appears to be euvolemic (3) Valvular heart disease Is this a current diagnosis for this admission?: Yes Plan: He apparently has had some valve disease in the past. (4) COPD (chronic obstructive pulmonary disease) Is this a current diagnosis for this admission?: Yes Plan: No signs of acute exacerbation we will continue to monitor for signs of bronchospasm. (5) Peripheral vascular disease Is this a current diagnosis for this admission?: Yes (6) Hepatic congestion Is this a current diagnosis for this admission?: Yes (7) Elevated troponin Is this a current diagnosis for this admission?: Yes (8) Cardiomyopathy, ischemic Is this a current diagnosis for this admission?: Yes (9) Coronary artery disease Is this a current diagnosis for this admission?: Yes (10) Acute on chronic renal failure Is this a current diagnosis for this admission?: Yes (11) Hyponatremia Is this a current diagnosis for this admission?: Yes (12) Hyperkalemia Is this a current diagnosis for this admission?: Yes (13) Full code status Is this a current diagnosis for this admission?: Yes - Time Time Spent with patient: 35 or more minutes - Inpatient Certification Medical Necessity: Other - Inpatient hospitalization remains necessary. This patient is going to require home oxygen and hopefully the discharge planners are getting this set up. I do have some concerns about him going home and of offer palliative care or home health services and he is declined. He can likely be discharged tomorrow if oxygen is set up.
[2018-06-06 05:48] LABS: ABSOLUTE BASOPHILS # (AUTO) 0.1 10^3/uL (0.0-0.2); ABSOLUTE EOSINOPHILS # (AUTO) 0.2 10^3/uL (0.0-0.6); ABSOLUTE LYMPHOCYTES (AUTO) 1.3 10^3/uL (0.5-4.7); ABSOLUTE MONOCYTES (AUTO) 0.8 10^3/uL (0.1-1.4); ABSOLUTE NEUT (AUTO) 4.2 10^3/uL (1.7-8.2); BASOPHILS % (AUTO) 0.8 % (0-2); EOSINOPHILS % (AUTO) 2.6 % (0-6); HEMATOCRIT 47.1 % (37.9-51.0); HEMOGLOBIN 15.2 g/dL (13.5-17.0); LYMPHOCYTES % (AUTO) 19.5 % (13-45); MEAN CORPUSCULAR HGB CONC 32.2 g/dL (32.0-36.0); MEAN CORPUSCULAR VOLUME 81 fl (80-97); PLATELET COUNT 192 10^3/uL (150-450); RED BLOOD COUNT 5.84 10^6/uL (4.35-5.55); RED CELL DISTRIBUTION WIDTH 21.5 % (11.5-14.0); SEGMENTED NEUTROPHILS % (AUTO) 65.1 % (42-78); TOTAL CELLS COUNTED % (AUTO) 100 %; WHITE BLOOD COUNT 6.4 10^3/uL (4.0-10.5)
[2018-06-06 06:12] LABS: ALBUMIN 3.6 g/dL (3.5-5.0); ANION GAP 10 (5-19); BLOOD UREA NITROGEN 38 mg/dL (7-20); CALCIUM 9.6 mg/dL (8.4-10.2); CARBON DIOXIDE 22 mmol/L (22-30); CHLORIDE 101 mmol/L (98-107); GLUCOSE 89 mg/dL (75-110); PHOSPHORUS 3.4 mg/dL (2.5-4.5); POTASSIUM 4.5 mmol/L (3.6-5.0)
[2018-06-06] MEDS: LOSARTAN POTASSIUM 50 MG TABLET PO SCH ×2 (09:14→22:59)
[2018-06-06] MEDS: FUROSEMIDE 40 MG TABLET PO SCH (09:14)
[2018-06-06] MEDS: DULOXETINE HCL 30 MG CAPSULE.DR PO SCH ×2 (09:14→17:09)
[2018-06-06] MEDS: UREA 20% CREAM 85 GM TUBE TP SCH (09:14)
[2018-06-06] MEDS: ENOXAPARIN SODIUM INJ 30 MG/0.3 ML DISP.SYRIN SUBCUT SCH (09:14)
[2018-06-06] MEDS: ASPIRIN 325 MG TABLET PO SCH (09:14)
[2018-06-06] MEDS: METOPROLOL SUCCINATE 25 MG TAB.SR.24H PO SCH ×2 (09:14→22:58)
[2018-06-06] MEDS: DOCUSATE SODIUM 100 MG CAPSULE PO SCH ×2 (09:14→17:09)
[2018-06-06] MEDS: THIAMINE HCL 100 MG TABLET PO SCH (10:32)
[2018-06-06] MEDS: QUETIAPINE FUMARATE 25 MG TABLET PO SCH (11:28)
--- NOTE | 2018-06-06 17:15 | PDOC PROGRESS REPORT ---
Subjective Progress Note for:: 06/06/18 Subjective:: Patient seen resting on the side of the bed. Presently is on oxygen at 2 L/min. He denies chest pain, shortness of breath or dyspnea at rest. He denies nausea, vomiting or abdominal pain he is asking when he can go home. He will need home oxygen set up we discussed the option of going to short-term rehab he refuses this. He is agreeable to palliative care following him and home health services. We discussed her concerns regarding compliance with diet and me dications with his cirrhosis and his heart failure. He is agreeable to home services he states that people do not mind coming to into a "dirty house". He denies any other arthralgias or myalgias. He denies fever or chills overnight. Remaining review of systems are negative Reason For Visit: ABD DISTENSION,CAD,CHF,VEINOUS STASIS Physical Exam Vital Signs: Temp Pulse Resp BP Pulse Ox 97.4 F 58 L 20 129/53 H 94 06/06/18 12:00 06/06/18 14:00 06/06/18 12:00 06/06/18 12:00 06/06/18 12:00 Intake & Output 06/05/18 06/06/18 06/07/18 06:59 06:59 06:59 Intake Total 646 1516 Output Total 825 945 101 Balance -179 571 -101 Weight 102.8 kg 102.4 kg General appearance: PRESENT: no acute distress, disheveled, well-developed, well-nourished Head exam: PRESENT: atraumatic, normocephalic Eye exam: PRESENT: conjunctiva pink, EOMI, PERRLA. ABSENT: scleral icterus Ear exam: PRESENT: normal external ear exam Mouth exam: PRESENT: moist, tongue midline Teeth exam: PRESENT: poor dentation Neck exam: ABSENT: carotid bruit, JVD, lymphadenopathy, thyromegaly Respiratory exam: PRESENT: crackles - Bilateral bases, decreased breath sounds, symmetrical, unlabored Cardiovascular exam: PRESENT: irregular rhythm, systolic murmur - 3/6. ABSENT: diastolic murmur, rubs Pulses: PRESENT: normal carotid pulses, normal radial pulses Vascular exam: PRESENT: normal capillary refill GI/Abdominal exam: PRESENT: normal bowel sounds, soft Rectal exam: PRESENT: deferred Extremities exam: PRESENT: full ROM, +1 edema - Bilateral pedal needs. ABSENT: calf tenderness, clubbing, pedal edema Musculoskeletal exam: PRESENT: ambulatory, full ROM Neurological exam: PRESENT: alert, awake, oriented to person, oriented to place, oriented to time, oriented to situation, CN II-XII grossly intact. ABSENT: motor sensory deficit Psychiatric exam: PRESENT: appropriate affect, normal mood. ABSENT: homicidal ideation, suicidal ideation Skin exam: PRESENT: dry, warm, other - Wounds on lower right ankle are covered with Xeroform and Jose wrap. We discussed with him the need for follow-up nursing care Results Laboratory Results: 06/06/18 05:06 06/06/18 05:06 06/06/18 06/06/18 06/06/18 05:06 05:06 10:36 WBC 6.4 RBC 5.84 H Hgb 15.2 Hct 47.1 MCV 81 MCH 26.0 L MCHC 32.2 RDW 21.5 H Plt Count 192 Seg Neutrophils % 65.1 Lymphocytes % 19.5 Monocytes % 12.0 Eosinophils % 2.6 Basophils % 0.8 Absolute Neutrophils 4.2 Absolute Lymphocytes 1.3 Absolute Monocytes 0.8 Absolute Eosinophils 0.2 Absolute Basophils 0.1 Sodium 133.0 L Potassium 4.5 Chloride 101 Carbon Dioxide 22 Anion Gap 10 BUN 38 H Creatinine 1.68 H Est GFR ( Amer) 51 L Est GFR (Non-Af Amer) 42 L Glucose 89 Calcium 9.6 Phosphorus 3.4 Magnesium 2.4 H Albumin 3.6 Stool Occult Blood NEGATIVE 05/24/18 05/24/18 05/24/18 21:50 21:50 23:15 CK-MB (CK-2) Troponin I 0.103 0.088 NT-Pro-B Natriuret Pep 49959 H 05/25/18 05/25/18 05/25/18 05:20 11:44 17:36 CK-MB (CK-2) Troponin I 0.106 0.385 0.972 NT-Pro-B Natriuret Pep 05/26/18 05/26/18 06/05/18 05:53 05:53 04:38 CK-MB (CK-2) 3.70 Troponin I 1.620 NT-Pro-B Natriuret Pep 4450 H 06/06/18 05:06 CK-MB (CK-2) Troponin I NT-Pro-B Natriuret Pep 3830 H Impressions: Abdomen/Pelvis CT 05/24/18 22:32 IMPRESSION: 1. Query cirrhotic liver with mild abdominopelvic ascites. 2. Diverticulosis without inflammatory changes. Chest X-Ray 05/25/18 00:00 IMPRESSION: Abnormal mediastinal contour at the AP window is nonspecific, and may represent unilateral pulmonary artery enlargement, left hilar lymphadenopathy, mass, or other. Head CT 05/25/18 00:00 IMPRESSION: NO ACUTE INTRACRANIAL IMAGING FINDINGS. EVIDENCE OF ACUTE STROKE: NO. Abdomen Ultrasound 05/26/18 10:11 IMPRESSION: FATTY LIVER. NO OTHER SIGNIFICANT FINDING. Chest CT 05/27/18 14:35 IMPRESSION: 1. Presumed mediastinal mass seen on prior chest x-ray corresponds to a dilated left pulmonary artery. All of the pulmonary arteries are significantly enlarged. Recommend correlation with any history of pulmonary artery hypertension. 2. Shotty lymphadenopathy in the superior mediastinum. Clinical correlation recommended. 3. Chronic lung changes. 4. Partially imaged ascites about the liver and spleen. Clinical correlation recommended. Foot X-Ray 05/28/18 21:28 IMPRESSION: No acute osseous abnormality. Tiny calcaneal spurs bilaterally. Soft tissue injury or ulceration of the distal portion of the right great toe. copyright 2010 [facility]- All Rights Reserved Ankle X-Ray 05/28/18 21:29 IMPRESSION: Small calcaneal spurs bilaterally. copyright 2010 [facility]- All Rights Reserved Assessment and Plan - Diagnosis (1) Acute combined systolic and diastolic congestive heart failure, NYHA class 4 Is this a current diagnosis for this admission?: Yes (2) Acute on chronic renal failure Is this a current diagnosis for this admission?: Yes (3) COPD (chronic obstructive pulmonary disease) Is this a current diagnosis for this admission?: Yes (4) Hepatic congestion Is this a current diagnosis for this admission?: Yes (5) Hypertension Qualifiers: Hypertension type: essential hypertension Qualified Code(s): I10 - Essential (primary) hypertension Is this a current diagnosis for this admission?: Yes (6) Hyponatremia Is this a current diagnosis for this admission?: Yes (7) Peripheral vascular disease Is this a current diagnosis for this admission?: Yes (8) Valvular heart disease Is this a current diagnosis for this admission?: Yes (9) Venous stasis Is this a current diagnosis for this admission?: Yes - Time Time Spent with patient: 30 minutes Total Critical Time (Minutes): 20 Medications reviewed and adjusted accordingly: Yes Anticipated discharge: Home with Homehealth, Other - I have care Within: within 24 hours - Inpatient Certification Based on my medical assessment, after consideration of the patient's comorbi dities, presenting symptoms, or acuity I expect that the services needed warrant INPATIENT care.: Yes I certify that my determination is in accordance with my understanding of Medicare's requirements for reasonable and necessary INPATIENT services [42 CFR 412.3e].: Yes Medical Necessity: Significant Comorbidiites Make Outpatient Treatment Too Risky - He is agreeable today to palliative care, home health services and home oxygen. This was being set up by case management will discharge him tomorrow morning., Risk of Complication if Not Cared For in Hospital
--- NOTE | 2018-06-06 21:27 | Progress Note ---
Provider Note Provider Note: CARDIOLOGY PROGRESS NOTE by Dr. Radha Lara on 06/06/2018.
[2018-06-06] MEDS ORDERED: QUETIAPINE FUMARATE 25 MG TABLET PO SCH (22:00)
[2018-06-07 05:30] LABS: HEMATOCRIT 44.6 % (37.9-51.0); HEMOGLOBIN 14.6 g/dL (13.5-17.0); MEAN CORPUSCULAR HEMOGLOBIN 26.3 pg (27.0-33.4); MEAN CORPUSCULAR HGB CONC 32.7 g/dL (32.0-36.0); MEAN CORPUSCULAR VOLUME 80 fl (80-97); PLATELET COUNT 167 10^3/uL (150-450); RED BLOOD COUNT 5.55 10^6/uL (4.35-5.55); RED CELL DISTRIBUTION WIDTH 21.4 % (11.5-14.0); WHITE BLOOD COUNT 6.1 10^3/uL (4.0-10.5)
[2018-06-07 05:52] LABS: ANION GAP 9 (5-19); BLOOD UREA NITROGEN 38 mg/dL (7-20); CALCIUM 9.3 mg/dL (8.4-10.2); CARBON DIOXIDE 23 mmol/L (22-30); CHLORIDE 102 mmol/L (98-107); GLUCOSE 89 mg/dL (75-110); POTASSIUM 4.6 mmol/L (3.6-5.0); SODIUM 133.6 mmol/L (137-145)
[2018-06-07] MEDS: THIAMINE HCL 100 MG TABLET PO SCH (09:19)
[2018-06-07] MEDS: DULOXETINE HCL 30 MG CAPSULE.DR PO SCH (09:20)
[2018-06-07] MEDS: METOPROLOL SUCCINATE 25 MG TAB.SR.24H PO SCH (09:20)
[2018-06-07] MEDS: ASPIRIN 325 MG TABLET PO SCH (09:20)
[2018-06-07] MEDS: LOSARTAN POTASSIUM 50 MG TABLET PO SCH (09:21)
[2018-06-07] MEDS: ENOXAPARIN SODIUM INJ 30 MG/0.3 ML DISP.SYRIN SUBCUT SCH (09:21)
[2018-06-07] MEDS: FUROSEMIDE 40 MG TABLET PO SCH (09:21)
[2018-06-07] MEDS: DOCUSATE SODIUM 100 MG CAPSULE PO SCH (09:21)
[2018-06-07] MEDS: UREA 20% CREAM 85 GM TUBE TP SCH (09:22)
[2018-06-07 12:37] VITALS: BP 140/74
--- NOTE | 2018-06-07 14:43 | PDOC DISCHARGE SUMMARY ---
General - Admit/Disc Date/PCP Admission Date/Primary Care Provider: 05/25/18 02:50 Discharge Date: 06/07/18 - Discharge Diagnosis (1) Acute combined systolic and diastolic congestive heart failure, NYHA class 4 Is this a current diagnosis for this admission?: Yes (2) Acute on chronic renal failure Is this a current diagnosis for this admission?: Yes (3) COPD (chronic obstructive pulmonary disease) Is this a current diagnosis for this admission?: Yes (4) Hepatic congestion Is this a current diagnosis for this admission?: Yes (5) Hypertension Is this a current diagnosis for this admission?: Yes (6) Hyponatremia Is this a current diagnosis for this admission?: Yes (7) Peripheral vascular disease Is this a current diagnosis for this admission?: Yes (8) Valvular heart disease Is this a current diagnosis for this admission?: Yes (9) Venous stasis Is this a current diagnosis for this admission?: Yes - Additional Information Resuscitation Status: Full Code Discharge Diet: Cardiac Discharge Activity: Activity As Tolerated, Balance Activity w/Rest, Weigh Daily Prescriptions: Furosemide [Lasix 40 mg Tablet] 40 mg PO DAILY #30 tablet Losartan Potassium [Cozaar 50 mg Tablet] 50 mg PO Q12 60 Days #30 tablet Metoprolol Succinate [Toprol Xl 25 mg Tab.sr] 25 mg PO Q12 30 Days #60 tab.sr.24h Thiamine HCl [Thiamine 100 mg Tablet] 100 mg PO DAILY #30 tablet Home Medications: Albuterol Sulfate [Proair HFA Inhalation Aerosol 8.5 gm MDI] 2 puff IH Q4HP PRN 05/25/18 Albuterol Sulfate [Ventolin 0.083% Neb 2.5 mg/3 mL Ampul] 1 vial IH Q8 05/25/18 Duloxetine HCl 60 mg PO Q12 05/25/18 Potassium Chloride [Klor-Con M20] 20 meq PO DAILY 05/25/18 Quetiapine Fumarate [Quetiapine Fumarate ER] 150 mg PO QHS 05/25/18 Ranitidine HCl 300 mg PO DAILY 05/25/18 Furosemide [Lasix 40 mg Tablet] 40 mg PO DAILY #30 tablet 06/07/18 Losartan Potassium [Cozaar 50 mg Tablet] 50 mg PO Q12 60 Days #30 tablet 06/07/18 Metoprolol Succinate [Toprol Xl 25 mg Tab.sr] 25 mg PO Q12 30 Days #60 tab.sr.24h 06/07/18 Thiamine HCl [Thiamine 100 mg Tablet] 100 mg PO DAILY #30 tablet 06/07/18 Urea [Carmol 20% Cream 85 gm] 1 applic TP DAILY tube 06/07/18 History of Present Illness Patient complains of: Shortness of breath and leg swelling History of Present Illness: JUJU ANDRADE is a 57 year old male who is an extraordinarily poor historian who admits congestive heart failure, hypertension, chronic intermittent leg swelling and recent discontinuation of unknown medications. In the emergency room he has uncontrolled hypertension, hypoxia, tachycardia, tachypnea, abdominal distention bilateral lower extremity edema with chronic changes and a BNP of 11,000 and elevated cardiac enzymes. He receives IV morphine and Lasix then referred to the hospitalist for admission. Patient denies chest pain. He was referred to the hospitalist service for admission. Hospital Course Hospital Course: Patient was admitted to the hospitalist service on telemetry. Cardiology was consulted. Dr. Hernandez, sales person saw the patient in consult patient. Patient was diuresed. Medications were adjusted. His records were obtained from [facility] in [facility]. He was slow to progress. He complained of abdominal distention. Abdominal ultrasound was obtained which showed no cholecystitis or ascites. Physical therapy was consulted and saw the patient in consult. He ambulated slowly with them. Discharge planning was also consulted. He was recommended for short-term rehab which he refused. He is agreeable to home health and palliative care visits post discharge. He will need dressing changes to the right lower leg blistered sites. He was instructed to wash with soap and water and cover with dry sterile dressings daily. Medications were changed for discharge. Patient was found to have room air oxygen saturation with exercise of 87%. Improved to 96% with 1 L of oxygen. Oxygen was arranged for post discharge. He will use at at bedtime and with exercise. We discussed his disposition plans. Unfortunately when he ambulates his oxygen saturation drops and I have asked the discharge planners to start trying to set up home oxygen. Unfortunately the patient lives alone. He has no family and he has no close friends. We discussed possible rehab and we even discussed getting palliative care to come in to the house. At this point he does not want anybody coming into the home and he is not ready for that yet. However quite concerned about his ability to care for himself. He thinks that he will do fine if he has the oxygen. He does state that he is going to be compliant with his medications going forward but he is worried about being compliant with a low-salt diet. We discussed this at length and hopefully he will try to at least cut back. Overall he states that he is feeling much better. He denies fever or chills. No chest pain, no increased shortness of breath or cough. No nausea vomiting or diarrhea. No urinary complaints. Physical Exam Vital Signs: Temp Pulse Resp BP Pulse Ox 97.5 F 58 L 18 140/74 H 97 06/07/18 12:00 06/07/18 12:00 06/07/18 12:00 06/07/18 12:00 06/07/18 12:00 Intake & Output 06/06/18 06/07/18 06/08/18 06:59 06:59 06:59 Intake Total 1516 509 Output Total 945 702 Balance 571 -193 Weight 102.4 kg 101.3 kg General appearance: PRESENT: no acute distress, well-developed, well-nourished Head exam: PRESENT: atraumatic, normocephalic Eye exam: PRESENT: conjunctiva pink, EOMI, PERRLA. ABSENT: scleral icterus Ear exam: PRESENT: normal external ear exam Mouth exam: PRESENT: moist, tongue midline Teeth exam: PRESENT: poor dentation Neck exam: ABSENT: carotid bruit, JVD, lymphadenopathy, thyromegaly Respiratory exam: PRESENT: crackles, symmetrical, unlabored - Left base. ABSENT: rales, rhonchi, wheezes Cardiovascular exam: PRESENT: RRR. ABSENT: diastolic murmur, rubs, systolic murmur Pulses: PRESENT: normal carotid pulses, normal radial pulses Vascular exam: PRESENT: normal capillary refill GI/Abdominal exam: PRESENT: normal bowel sounds, soft. ABSENT: distended, guarding, mass, organolmegaly, rebound, tenderness Rectal exam: PRESENT: deferred Extremities exam: PRESENT: full ROM. ABSENT: calf tenderness, clubbing, pedal edema Musculoskeletal exam: PRESENT: ambulatory Neurological exam: PRESENT: alert, awake, oriented to person, oriented to place, oriented to time, oriented to situation, CN II-XII grossly intact. ABSENT: motor sensory deficit Psychiatric exam: PRESENT: appropriate affect, normal mood. ABSENT: homicidal ideation, suicidal ideation Skin exam: PRESENT: dry, intact, warm. ABSENT: cyanosis, rash Results Laboratory Results: 06/07/18 04:55 06/07/18 04:55 06/07/18 06/07/18 04:55 04:55 WBC 6.1 RBC 5.55 Hgb 14.6 Hct 44.6 MCV 80 MCH 26.3 L MCHC 32.7 RDW 21.4 H Plt Count 167 Sodium 133.6 L Potassium 4.6 Chloride 102 Carbon Dioxide 23 Anion Gap 9 BUN 38 H Creatinine 1.61 H Est GFR ( Amer) 53 L Est GFR (Non-Af Amer) 44 L Glucose 89 Calcium 9.3 05/24/18 05/24/18 05/24/18 21:50 21:50 23:15 CK-MB (CK-2) Troponin I 0.103 0.088 NT-Pro-B Natriuret Pep 18984 H 05/25/18 05/25/18 05/25/18 05:20 11:44 17:36 CK-MB (CK-2) Troponin I 0.106 0.385 0.972 NT-Pro-B Natriuret Pep 05/26/18 05/26/18 06/05/18 05:53 05:53 04:38 CK-MB (CK-2) 3.70 Troponin I 1.620 NT-Pro-B Natriuret Pep 4450 H 06/06/18 05:06 CK-MB (CK-2) Troponin I NT-Pro-B Natriuret Pep 3830 H Impressions: Abdomen/Pelvis CT 05/24/18 22:32 IMPRESSION: 1. Query cirrhotic liver with mild abdominopelvic ascites. 2. Diverticulosis without inflammatory changes. Chest X-Ray 05/25/18 00:00 IMPRESSION: Abnormal mediastinal contour at the AP window is nonspecific, and may represent unilateral pulmonary artery enlargement, left hilar lymphadenopathy, mass, or other. Head CT 05/25/18 00:00 IMPRESSION: NO ACUTE INTRACRANIAL IMAGING FINDINGS. EVIDENCE OF ACUTE STROKE: NO. Abdomen Ultrasound 05/26/18 10:11 IMPRESSION: FATTY LIVER. NO OTHER SIGNIFICANT FINDING. Chest CT 05/27/18 14:35 IMPRESSION: 1. Presumed mediastinal mass seen on prior chest x-ray corresponds to a dilated left pulmonary artery. All of the pulmonary arteries are significantly enlarged. Recommend correlation with any history of pulmonary art courtney hypertension. 2. Shotty lymphadenopathy in the superior mediastinum. Clinical correlation recommended. 3. Chronic lung changes. 4. Partially imaged ascites about the liver and spleen. Clinical correlation recommended. Foot X-Ray 05/28/18 21:28 IMPRESSION: No acute osseous abnormality. Tiny calcaneal spurs bilaterally. Soft tissue injury or ulceration of the distal portion of the right great toe. copyright 2010 [employer]- All Rights Reserved Ankle X-Ray 05/28/18 21:29 IMPRESSION: Small calcaneal spurs bilaterally. copyright 2010 [employer]- All Rights Reserved Qualifiers - * PATIENT BEING DISCHARGED WITH ANY OF THE FOLLOWING DIAGNOSIS: No
== END 2018-06-07 15:14 | disposition home health service (06) | DRG 291 ==
LOC: ER 15:56 → EH 05-25 02:50 → 4N 05-25 06:50
PROVIDERS: ADMIT Internal Medicine; ATTEND Internal Medicine
DX: I13.0 Hypertensive heart and chronic kidney disease with heart failure and stage 1 through stage 4 chronic kidney disease, or unspecified chronic kidney disease (principal); I50.43 Acute on chronic combined systolic (congestive) and diastolic (congestive) heart failure; N17.9 Acute kidney failure, unspecified; R18.8 Other ascites; E87.1 Hypo-osmolality and hyponatremia; E87.5 Hyperkalemia; N18.3 Chronic kidney disease, stage 3 (moderate); Z95.1 Presence of aortocoronary bypass graft; Z95.2 Presence of prosthetic heart valve; K76.1 Chronic passive congestion of liver; I73.9 Peripheral vascular disease, unspecified; I87.8 Other specified disorders of veins; L85.9 Epidermal thickening, unspecified; F31.9 Bipolar disorder, unspecified; E66.9 Obesity, unspecified; J44.9 Chronic obstructive pulmonary disease, unspecified; R93.89 Abnormal findings on diagnostic imaging of other specified body structures; I25.10 Atherosclerotic heart disease of native coronary artery without angina pectoris; I25.5 Ischemic cardiomyopathy; H91.90 Unspecified hearing loss, unspecified ear; L27.0 Generalized skin eruption due to drugs and medicaments taken internally; T45.515A Adverse effect of anticoagulants, initial encounter; Z95.5 Presence of coronary angioplasty implant and graft; Z82.49 Family history of ischemic heart disease and other diseases of the circulatory system; Z88.8 Allergy status to other drugs, medicaments and biological substances
CPT/HCPCS: 36415; 36600; 70450; 71045; 71250; 74177; 76700; 80048; 80053; 80069; 80307; 81001; 82272; 82553; 82803; 83690; 83735; 83880; 84439; 84443; 84481; 84484; 85025; 85027; 85610; 86701; 87040; 93005; 93010; 93306; 93976; 96374; 96375; 99285; J0360; J1644; J1650; J1940; J2060; J2270; J2405; J3010; J3430; J3490; S0164

== ENCOUNTER 2019-04-30 09:57 | Inpatient (IN) | payer MEDICARE, MEDICAID ==
[2019-04-30] MEDS ORDERED: ASPIRIN 81 MG TABLET, CHEWABLE PO ONE (10:41)
[2019-04-30] MEDS ORDERED: FUROSEMIDE INJ/PF 100 MG/10 ML SDV IV ONE (10:42)
[2019-04-30] MEDS ORDERED: NITROGLYCERIN 2% OINTMENT 1 GM PACKET TP ONE (10:42)
[2019-04-30 11:14] LABS: INTERNATIONAL RATION (INR) 1.18; PROTHROMBIN TIME 15.1 SEC (11.4-15.4)
[2019-04-30 11:16] LABS: ALKALINE PHOSPHATASE 254 U/L (38-126); ANION GAP 11 (5-19); ASPARTATE AMINO TRANSFERASE 18 U/L (17-59); BILIRUBIN,DIRECT 0.6 mg/dL (0.0-0.4); BILIRUBIN,TOTAL 1.5 mg/dL (0.2-1.3); BLOOD UREA NITROGEN 24 mg/dL (7-20); CALCIUM 9.3 mg/dL (8.4-10.2); CARBON DIOXIDE 22 mmol/L (22-30); CHLORIDE 105 mmol/L (98-107); GLUCOSE 94 mg/dL (75-110); POTASSIUM 4.7 mmol/L (3.6-5.0)
[2019-04-30 11:19] LABS: ABSOLUTE BASOPHILS # (AUTO) 0.1 10^3/uL (0.0-0.2); ABSOLUTE EOSINOPHILS # (AUTO) 0.1 10^3/uL (0.0-0.6); ABSOLUTE LYMPHOCYTES (AUTO) 1.1 10^3/uL (0.5-4.7); ABSOLUTE MONOCYTES (AUTO) 0.5 10^3/uL (0.1-1.4); ABSOLUTE NEUT (AUTO) 3.8 10^3/uL (1.7-8.2); BASOPHILS % (AUTO) 0.9 % (0-2); EOSINOPHILS % (AUTO) 2.5 % (0-6); HEMATOCRIT 39.9 % (37.9-51.0); HEMOGLOBIN 13.1 g/dL (13.5-17.0); MEAN CORPUSCULAR HEMOGLOBIN 25.8 pg (27.0-33.4); MEAN CORPUSCULAR HGB CONC 32.7 g/dL (32.0-36.0); MEAN CORPUSCULAR VOLUME 79 fl (80-97); MONOCYTES % (AUTO) 9.3 % (3-13); PLATELET COUNT 228 10^3/uL (150-450); RED BLOOD COUNT 5.07 10^6/uL (4.35-5.55); RED CELL DISTRIBUTION WIDTH 22.4 % (11.5-14.0); SEGMENTED NEUTROPHILS % (AUTO) 68.3 % (42-78); TOTAL CELLS COUNTED % (AUTO) 100 %; WHITE BLOOD COUNT 5.6 10^3/uL (4.0-10.5)
--- NOTE | 2019-04-30 11:28 | RADIOLOGY REPORT (SQ) ---
EXAM DESCRIPTION: CHEST SINGLE VIEW COMPLETED DATE/TIME: 04/30/2019 11:15 am REASON FOR STUDY: htn/ sob COMPARISON: 05/25/2018 EXAM PARAMETERS: NUMBER OF VIEWS: One view. TECHNIQUE: Single frontal radiographic view of the chest acquired. RADIATION DOSE: NA LIMITATIONS: None. FINDINGS: LUNGS AND PLEURA: There is left perihilar and right lower lobe airspace disease. Most lik ifeoma asymmetric edema. Less likely pneumonia. No definite effusions. MEDIASTINUM AND HILAR STRUCTURES: No masses. Contour normal. HEART AND VASCULAR STRUCTURES: Heart is enlarged. There are central vascular prominence. BONES: No acute findings. HARDWARE: Sternotomy wires are in place. OTHER: No other significant finding. IMPRESSION: Cardiomegaly. Bilateral airspace disease as described. Findings most likely represent asymmetric pulmonary edema. TECHNICAL DOCUMENTATION: JOB ID: [id number] 2010 [employer]- All Rights Reserved Reading location - IP/workstation name: [email or web address]
[2019-04-30 11:29] LABS: TROPONIN I 0.054 ng/mL
--- NOTE | 2019-04-30 11:47 | ER Document Report ---
Entered by MERCY OLIVARES SCRIBE 04/30/19 1028 Acting as scribe for:MARYCRUZ CHO DO ED General - General Chief Complaint: Respiratory Distress Stated Complaint: RESPIRATORY DISTRESS Primary Care Provider: SB NELSON DO [Primary Care Provider] - Follow up as needed Mode of Arrival: Medic Information source: Patient Notes: This 58 year old male patient presents to the emergency department today with complaints of abdominal swelling. Patient states he is in between switching primary care physicians and he has been out of medication for about a month. Uup on review of pharmacy records it appears the patient had been on Seroquel, Paxil, and hydroxyzine. Patient reports he has never been diagnosed with hepatitis B or C. Patient denies EtOH usage or history of EtOH abuse. Patient denies fevers. Patient was here in May of last year with a similar presentation and they attempted to place the patient in rehabilitation at that time which he declined. TRAVEL OUTSIDE OF THE [place] IN LAST 30 DAYS: No - Related Data Allergies/Adverse Reactions: risperidone [From Risperdal] Allergy (Verified 05/24/18 15:59) trazodone Allergy (Verified 05/24/18 15:59) Past Medical History - General Information source: Patient - Social History Smoking Status: Current Every Day Smoker Cigarette use (# per day): Yes Chew tobacco use (# tins/day): No Frequency of alcohol use: None Drug Abuse: None Lives with: Family Family History: Reviewed & Not Pertinent Patient has suicidal ideation: No Patient has homicidal ideation: No - Past Medical History Cardiac Medical History: Reports: Hx Congestive Heart Failure, Hx Hypertension Psychiatric Medical History: Reports: Hx Bipolar Disorder Past Surgical History: Reports: Hx Coronary Artery Bypass Graft, Hx Open Heart Surgery, Hx Valve Replacement Review of Systems - Review of Systems Constitutional: denies: Fever EENT: No symptoms reported Cardiovascular: No symptoms reported Respiratory: See HPI, Short of breath Gastrointestinal: See HPI, Abdomen distended Genitourinary: No symptoms reported Male Genitourinary: No symptoms reported Musculoskeletal: See HPI, Leg swelling Skin: No symptoms reported Hematologic/Lymphatic: No symptoms reported Neurological/Psychological: No symptoms reported -: Yes All other systems reviewed and negative Physical Exam - Vital signs Vitals: Temp Pulse Resp BP Pulse Ox 98.0 F 85 18 164/97 H 96 04/30/19 10:00 04/30/19 10:00 04/30/19 10:00 04/30/19 10:00 04/30/19 10:00 - Notes Notes: Physical Exam: General: Alert, appears chronically ill and much older than stated age. HEENT: Normocephalic. Atraumatic. PERRL. Extraocular movements intact. Oropharynx clear. Periorbital edema bilaterally. Neck: Supple. Non-tender. Neck fullness. Respiratory: Mild respiratory distress. Bibasilar rales. Cardiovascular: Distant heart sounds, Regular rate and rhythm. Abdominal: Abdominal distension. Non-tender. Normal Bowel Sounds. Back: No gross abnormalities. Extremities: Moves all four extremities. Upper extremities: Normal inspection. Normal ROM. Lower extremities: 4+ pedal edema bilaterally. Chronic venous stasis changes to bilateral lower extremities. Right knee effusion. Neurological: Normal cognition. AAOx4. Normal speech. Psychological: Normal affect. Normal Mood. Skin: Warm. Dry. Normal color. Course - Re-evaluation Re-evalutation: 04/30/19 11:53 MDM 58 year old male chronically ill and noncompliant with his medicines here with SOB, noncompliant with meds and out of meds for at least 2 weeks. No chest pain and no fever. This is most consistent with CHF. - Vital Signs Vital signs: Temp Pulse Resp BP Pulse Ox 98.0 F 85 24 H 168/112 H 99 04/30/19 10:00 04/30/19 10:00 04/30/19 11:01 04/30/19 11:01 04/30/19 11:01 - Laboratory Result Diagrams: 04/30/19 10:30 04/30/19 10:30 Laboratory results interpreted by me: 04/30/19 04/30/19 04/30/19 10:30 10:30 10:30 Hgb 13.1 L MCV 79 L MCH 25.8 L RDW 22.4 H BUN 24 H Creatinine 1.81 H Est GFR ( Amer) 47 L Est GFR (MDRD) Non-Af 38 L Magnesium 2.4 H Total Bilirubin 1.5 H Direct Bilirubin 0.6 H Alkaline Phosphatase 254 H Ammonia NT-Pro-B Natriuret Pep 8030 H Lipase 11.8 L 04/30/19 11:10 Hgb MCV MCH RDW BUN Creatinine Est GFR ( Amer) Est GFR (MDRD) Non-Af Magnesium Total Bilirubin Direct Bilirubin Alkaline Phosphatase Ammonia < 8.7 L NT-Pro-B Natriuret Pep Lipase - EKG Interpretation by Me EKG shows normal: Sinus rhythm Rate: Normal Rhythm: NSR - NSR LVH L axis poor r wave progression no st elevation or depression my interpretation. Similar to May 2018 Critical Care Note - Critical Care Note Total time excluding time spent on procedures (mins): 30 Discharge - Discharge Clinical Impression: Acute combined systolic and diastolic congestive heart failure, NYHA class 4, Medical non-compliance Dyspnea Qualifiers: Dyspnea type: shortness of breath Qualified Code(s): R06.02 - Shortness of breath; R06.00 - Dyspnea, unspecified; R06.01 - Orthopnea Condition: Fair Disposition: ADMITTED INPATIENT Admitting Provider: Armida (Hospitalist) Unit Admitted: Telemetry Referrals: SB NELSON DO [Primary Care Provider] - Follow up as needed I personally performed the services described in the documentation, reviewed and edited the documentation which was dictated to the scribe in my presence, and it accurately records my words and actions.
[2019-04-30 12:09] LABS: A TYPE INFLUENZA AG NEGATIVE (NEGATIVE); B INFLUENZA AG NEGATIVE (NEGATIVE)
[2019-04-30] MEDS ORDERED: ENALAPRILAT DIHYDRATE INJ/PF 1.25 MG/1 ML SDV IV ONE (12:17)
[2019-04-30 12:29] LABS: APPEARANCE,URINE CLEAR; BILIRUBIN,URINE NEGATIVE (NEGATIVE); COLOR,URINE YELLOW; GLUCOSE, URINE NEGATIVE (NEGATIVE); KETONES,URINE NEGATIVE (NEGATIVE); LEUKOCYTE ESTERASE,URINE NEGATIVE (NEGATIVE); NITRITE,URINE NEGATIVE (NEGATIVE); PROTEIN,URINE 30 mg/dL (NEGATIVE); URINE SPECIFIC GRAVITY 1.008; UROBILINOGEN,URINE NEGATIVE mg/dL (<2.0)
[2019-04-30] MEDS ORDERED: PROMETHAZINE HCL 25 MG TABLET PO PRN (13:25)
[2019-04-30] MEDS ORDERED: MAG HYDROX/AL HYDROX/SIMETH SUSP 30 ML UDCUP PO PRN (13:25)
[2019-04-30] MEDS ORDERED: ONDANSETRON 4 MG TAB.RAPDIS PO PRN (13:25)
[2019-04-30] MEDS ORDERED: ACETAMINOPHEN 325 MG TABLET PO PRN (13:25)
[2019-04-30] MEDS ORDERED: IPRATROPIUM/ALBUTEROL 0.5-2.5 MG/3 ML AMPUL NEB PRN (13:33)
[2019-04-30] MEDS ORDERED: FUROSEMIDE INJ/PF 40 MG/4 ML SDV IV SCH (14:00)
--- NOTE | 2019-04-30 14:00 | PDOC H&P ---
History of Present Illness Admission Date/PCP: 04/30/19 12:30 SB NELSON DO Patient complains of: Patient presents emergency room with progressive difficulty breathing and shortness of breath as well as bilateral lower leg swelling. Patient states that he ran out of his medicine. He also complains of abdominal swelling. He says he has been out of his medication for at least 2 weeks however I suspect is probably much longer than this History of Present Illness: JUJU Yu ANDRADE is a 58 year old male Patient presents emergency room with progressive difficulty breathing and shortness of breath as well as bilateral lower leg swelling. Patient states that he ran out of his medicine. He also complains of abdominal swelling. She says he has been out of his medication for at least 2 weeks however I suspect is probably much longer than this. He states that he is a loner and really has no one to inform of his illness. His blood pressure was also found to be elevated on presentation with a BP of 164/97. Patient denies any scrotal swelling although he would not allow me to inspect. Echocardiogram done in May 2018 revealed a limited evaluation but estimated the ejection fraction to be about 35 to 40% as well as with right ventricular systolic dilatation. BNP is 8030, total bilirubin of 1.5, normal AST and ALT but elevated alkaline phosphatase at 254 Has chronic kidney disease with GFR of about 38. He is kidney function is at today relatively close to his baseline although expected to be worse over the next few days due to his diuretic. Chest x-ray reveals bilateral airspace disease with findings most likely secondary to asymmetric pulmonary edema. Patient really has no clinical signs of pneumonia. Past Medical History Cardiac Medical History: Reports: Congestive Heart Failure, Hypertension EENT Medical History: Reports: None GI Medical History: Reports: None Psychiatric Medical History: Reports: Bipolar Disorder Infectious Medical History: Reports: None Past Surgical History Past Surgical History: Reports: Coronary Artery Bypass Graft, Valve Replacement Social History Information Source: Patient Lives with: Family Smoking Status: Current Every Day Smoker Electronic Cigarette use?: No - Advance Directive Resuscitation Status: Full Code Family History Family History: Reviewed & Not Pertinent Parental Family History Reviewed: No Children Family History Reviewed: Unknown Sibling(s) Family History Reviewed.: Unknown Medication/Allergy Allergies/Adverse Reactions: risperidone [From Risperdal] Allergy (Verified 04/30/19 12:35) trazodone Allergy (Verified 04/30/19 12:35) Review of Systems Constitutional: PRESENT: weight gain. ABSENT: chills, fever(s), headache(s) Eyes: ABSENT: visual disturbances Ears: ABSENT: hearing changes Cardiovascular: PRESENT: dyspnea on exertion, edema, orthropnea. ABSENT: chest pain, palpitations Respiratory: PRESENT: dyspnea - 0. ABSENT: cough, hemoptysis Gastrointestinal: ABSENT: abdominal pain, constipation, diarrhea, hematemesis, hematochezia, nausea, vomiting Genitourinary: ABSENT: dysuria, hematuria Musculoskeletal: ABSENT: joint swelling Integumentary: ABSENT: rash, wounds Neurological: ABSENT: abnormal gait, abnormal speech, confusion, dizziness, focal weakness, syncope Psychiatric: ABSENT: suicidal ideation Endocrine: ABSENT: cold intolerance, heat intolerance, polydipsia, polyuria Hematologic/Lymphatic: ABSENT: easy bleeding, easy bruising Physical Exam Vital Signs: Temp Pulse Resp BP Pulse Ox 98.0 F 85 20 170/114 H 96 04/30/19 10:00 04/30/19 10:00 04/30/19 12:32 04/30/19 12:32 04/30/19 12:36 Intake & Output 04/29/19 04/30/19 05/01/19 06:59 06:59 06:59 Output Total 320 Balance -320 Weight 116.4 kg General appearance: PRESENT: no acute distress, obese Ear exam: ABSENT: bleeding Neck exam: PRESENT: full ROM. ABSENT: JVD, tenderness GI/Abdominal exam: PRESENT: ascites, distended, normal bowel sounds. ABSENT: tenderness Rectal exam: PRESENT: deferred Extremities exam: PRESENT: other - 4+ edema, anasarca Neurological exam: PRESENT: alert, awake Psychiatric exam: PRESENT: appropriate affect Skin exam: PRESENT: cyanosis, mottled, rash - Bilateral Lower extremities Chronic venous stasis Results Laboratory Results: 04/30/19 10:30 04/30/19 10:30 04/30/19 04/30/19 04/30/19 10:30 10:30 11:10 WBC 5.6 RBC 5.07 Hgb 13.1 L Hct 39.9 MCV 79 L MCH 25.8 L MCHC 32.7 RDW 22.4 H Plt Count 228 Seg Neutrophils % 68.3 Sodium 137.7 Potassium 4.7 Chloride 105 Carbon Dioxide 22 Anion Gap 11 BUN 24 H Creatinine 1.81 H Est GFR ( Amer) 47 L Glucose 94 Lactic Acid 1.7 Calcium 9.3 Magnesium 2.4 H Total Bilirubin 1.5 H AST 18 Alkaline Phosphatase 254 H Ammonia Total Protein 7.0 Albumin 4.0 Lipase 11.8 L Urine Color Urine Appearance Urine pH Ur Specific [place] Urine Protein Urine Glucose (UA) Urine Ketones Urine Blood Urine Nitrite Ur Leukocyte Esterase Urine WBC (Auto) Urine RBC (Auto) 04/30/19 04/30/19 11:10 12:05 WBC RBC Hgb Hct MCV MCH MCHC RDW Plt Count Seg Neutrophils % Sodium Potassium Chloride Carbon Dioxide Anion Gap BUN Creatinine Est GFR ( Amer) Glucose Lactic Acid Calcium Magnesium Total Bilirubin AST Alkaline Phosphatase Ammonia < 8.7 L Total Protein Albumin Lipase Urine Color YELLOW Urine Appearance CLEAR Urine pH 6.0 Ur Specific [place] 1.008 Urine Protein 30 H Urine Glucose (UA) NEGATIVE Urine Ketones NEGATIVE Urine Blood NEGATIVE Urine Nitrite NEGATIVE Ur Leukocyte Esterase NEGATIVE Urine WBC (Auto) 0 Urine RBC (Auto) 1 04/30/19 10:30 Troponin I 0.054 NT-Pro-B Natriuret Pep 8030 H Impressions: Chest X-Ray 04/30/19 10:37 IMPRESSION: Cardiomegaly. Bilateral airspace disease as described. Findings most likely represent asymmetric pulmonary edema. Assessment and Plan - Diagnosis (1) Hypertensive emergency Is this a current diagnosis for this admission?: Yes Plan: Likely related to his acute CHF. Will place him transdermal nitroglycerin and adjust as needed (2) Acute combined systolic and diastolic congestive heart failure, NYHA class 4 Is this a current diagnosis for this admission?: Yes Plan: We will follow-up with echocardiogram Patient has chronic heart failure with acute exacerbation. We will continue with Lasix as well as Nitropaste. He has also been placed on JOSE D inhibitor as well as beta-laurie. Initial troponin is 0.054 which I suspect is related to his acutely decompensated CHF. 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 He may have underlying peripheral vascular disease. At this point I see no reason to obtain a Doppler but depending on his hospital course if indicated this will be obtained - Plan Summary Summary: Patient has slightly elevated alkaline phosphatase. Is set to have bilirubin is also slightly elevated. This is really a chronic. There is no evidence of any acute liver disease. If anything this may be related to his underlying CHF although he is AST and ALT within normal - Time Time Spent with patient: 35 or more minutes Smoking Cessation Education: 3 to 10 minutes Medications reviewed and adjusted accordingly: Yes Anticipated discharge: Home, SNF Within: within 72 hours - Patient did indicate that he would like to go back to his own home. He is able to make his own decisions but will see if he needs rehab and this will be suggested to him if he does meet the criteria however he is free to make his own decisions
--- NOTE | 2019-04-30 16:52 | ADVANCED CARE ---
- Diagnosis (1) Hypertensive emergency Diagnosis Current: Yes (2) Acute combined systolic and diastolic congestive heart failure, NYHA class 4 Diagnosis Current: Yes (3) Medical non-compliance Diagnosis Current: Yes (4) CKD (chronic kidney disease) Diagnosis Current: Yes (5) Cardiomyopathy, ischemic Diagnosis Current: Yes (6) Full code status Diagnosis Current: Yes (7) Venous stasis Diagnosis Current: Yes Resuscitation Status: Full Code Discussion: Code status was discussed with patient. He understands the discussion. He states he would like to be a full code Time Spent: !5 minutes
[2019-04-30] MEDS ORDERED: NITROGLYCERIN 2% OINTMENT 1 GM PACKET TP SCH (18:00)
[2019-04-30 19:36] VITALS: BP 130/78
--- NOTE | 2019-04-30 20:15 | Left Against Medical Advice ---
Against Medical Advice Admission Date/Time: 04/30/19 12:30 Primary Care Provider: SB NELSON DO Date of Patient Emigration: 04/30/19 - Left ER AMA - Diagnosis: (1) Acute combined systolic and diastolic congestive heart failure, NYHA class 4 Is this a current diagnosis for this admission?: Yes (2) CKD (chronic kidney disease) Is this a current diagnosis for this admission?: Yes (3) Cardiomyopathy, ischemic Is this a current diagnosis for this admission?: Yes (4) Hypertensive emergency Is this a current diagnosis for this admission?: Yes (5) Medical non-compliance Is this a current diagnosis for this admission?: Yes - Summary: Summary: Please see Admission and Progress Notes as well. JUJU ANDRADE is a 58 M, who left the hospital/emergency room prior to going to the medical floor. The patient LEFT AGAINST MEDICAL ADVICE. The Patient was admitted on 04/30/19 12:30.
[2019-04-30] MEDS ORDERED: FAMOTIDINE 20 MG TABLET PO SCH (22:00)
[2019-04-30] MEDS ORDERED: RIVAROXABAN 10 MG TABLET PO SCH (22:00)
[2019-04-30] MEDS ORDERED: RIVAROXABAN 2.5 MG PO SCH (22:00)
[2019-04-30] MEDS ORDERED: METOPROLOL SUCCINATE 25 MG TAB.SR.24H PO SCH (22:00)
--- NOTE | 2019-05-01 08:16 | H&P/Discharge Summary ---
Discharge Summary Admission Date/PCP: 04/30/19 12:30 SB NELSON DO Resuscitation Status: Full Code Home Medications: Albuterol Sulfate [Ventolin Hfa 8 gm Mdi] 2 puff IH Q6HP PRN 04/30/19 Ammonium Lactate [Lac-Hydrin 12% Lotion 225Gm/Bottle] 1 applic TOP BID 04/30/19 Furosemide [Lasix 40 mg Tablet] 40 mg PO BID 04/30/19 Omeprazole Magnesium [Prilosec Otc] 40 mg PO DAILY 04/30/19 Paroxetine HCl [Paxil] 10 mg PO DAILY 04/30/19 Quetiapine Fumarate [Quetiapine Fumarate ER] 300 mg PO QPM 04/30/19 Ranitidine HCl [Heartburn Relief] 150 mg PO BID 04/30/19 Rivaroxaban [Xarelto] 2.5 mg PO Q12 04/30/19 Sacubitril/Valsartan [Entresto 24 mg/26 mg Tablet] 1 tab PO Q12 04/30/19 Thiamine HCl [Thiamine 100 mg Tablet] 100 mg PO DAILY 04/30/19 Allergies/Adverse Reactions: risperidone [From Risperdal] Allergy (Verified 04/30/19 12:35) trazodone Allergy (Verified 04/30/19 12:35) History of Present Illness Admission Date/PCP: 04/30/19 12:30 SB NELSON DO History of Present Illness: JUJU ANDRADE is a 58 year old male Patient presents emergency room with progressive difficulty breathing and shortness of breath as well as bilateral lower leg swelling. Patient states that he ran out of his medicine. He also complains of abdominal swelling. She says he has been out of his medication for at least 2 weeks however I suspect is probably much longer than this. He states that he is a loner and really has no one to inform of his illness. His blood pressure was also found to be elevated on presentation with a BP of 164/97. Patient denies any scrotal swelling although he would not allow me to inspect. Echocardiogram done in May 2018 revealed a limited evaluation but estimated the ejection fraction to be about 35 to 40% as well as with right ventricular systolic dilatation. BNP is 8030, total bilirubin of 1.5, normal AST and ALT but elevated alkaline phosphatase at 254 Has chronic kidney disease with GFR of about 38. He is kidney function is at today relatively close to his baseline although expected to be worse over the next few days due to his diuretic. Chest x-ray reveals bilateral airspace disease with findings most likely secondary to asymmetric pulmonary edema. Patient really has no clinical signs of pneumonia. Past Medical History Cardiac Medical History: Reports: Congestive Heart Failure, Hypertension EENT Medical History: Reports: None GI Medical History: Reports: None Psychiatric Medical History: Reports: Bipolar Disorder Infectious Medical History: Reports: None Past Surgical History Past Surgical History: Reports: Coronary Artery Bypass Graft, Valve Replacement Social History Information Source: Patient Lives with: Family Smoking Status: Current Every Day Smoker Electronic Cigarette use?: No - Advance Directive Resuscitation Status: Full Code Family History Family History: Reviewed & Not Pertinent Parental Family History Reviewed: No Children Family History Reviewed: NA Sibling(s) Family History Reviewed.: NA Physical Exam Vital Signs: Temp Pulse Resp BP Pulse Ox 98.3 F 91 25 H 130/78 H 91 L 04/30/19 19:10 04/30/19 19:10 04/30/19 19:10 04/30/19 19:10 04/30/19 19:10 Intake & Output 04/30/19 05/01/19 05/02/19 06:59 06:59 06:59 Intake Total 500 Output Total 2720 Balance -2220 Weight 116.4 kg General appearance: PRESENT: no acute distress, obese Neck exam: ABSENT: JVD Respiratory exam: PRESENT: unlabored Extremities exam: PRESENT: other - Venous stasis 3+ edema Neurological exam: PRESENT: alert, awake Results Laboratory Results: 04/30/19 10:30 04/30/19 10:30 04/30/19 04/30/19 04/30/19 10:30 10:30 11:10 WBC 5.6 RBC 5.07 Hgb 13.1 L Hct 39.9 MCV 79 L MCH 25.8 L MCHC 32.7 RDW 22.4 H Plt Count 228 Seg Neutrophils % 68.3 Sodium 137.7 Potassium 4.7 Chloride 105 Carbon Dioxide 22 Anion Gap 11 BUN 24 H Creatinine 1.81 H Est GFR ( Amer) 47 L Glucose 94 Lactic Acid 1.7 Calcium 9.3 Magnesium 2.4 H Total Bilirubin 1.5 H AST 18 Alkaline Phosphatase 254 H Ammonia Total Protein 7.0 Albumin 4.0 Lipase 11.8 L Urine Color Urine Appearance Urine pH Ur Specific [place] Urine Protein Urine Glucose (UA) Urine Ketones Urine Blood Urine Nitrite Ur Leukocyte Esterase Urine WBC (Auto) Urine RBC (Auto) 04/30/19 04/30/19 11:10 12:05 WBC RBC Hgb Hct MCV MCH MCHC RDW Plt Count Seg Neutrophils % Sodium Potassium Chloride Carbon Dioxide Anion Gap BUN Creatinine Est GFR ( Amer) Glucose Lactic Acid Calcium Magnesium Total Bilirubin AST Alkaline Phosphatase Ammonia < 8.7 L Total Protein Albumin Lipase Urine Color YELLOW Urine Appearance CLEAR Urine pH 6.0 Ur Specific [place] 1.008 Urine Protein 30 H Urine Glucose (UA) NEGATIVE Urine Ketones NEGATIVE Urine Blood NEGATIVE Urine Nitrite NEGATIVE Ur Leukocyte Esterase NEGATIVE Urine WBC (Auto) 0 Urine RBC (Auto) 1 04/30/19 10:30 Troponin I 0.054 NT-Pro-B Natriuret Pep 8030 H Impressions: Chest X-Ray 04/30/19 10:37 IMPRESSION: Cardiomegaly. Bilateral airspace disease as described. Findings most likely represent asymmetric pulmonary edema. Qualifiers PATIENT BEING DISCHARGED WITH ANY OF THE FOLLOWING DIAGNOSIS: No Assessment & Plan - Time Time Spent with patient: Patient was admitted early on in the day and signed out AGAINST MEDICAL ADVICE a few hours later. Please see history and physical as previously dictated Time Spent: 30 to 50 Minutes Medications reviewed and adjusted accordingly: Yes
[2019-05-01] MEDS ORDERED: PAROXETINE HCL 20 MG TABLET PO SCH (10:00)
[2019-05-01] MEDS ORDERED: ENOXAPARIN SODIUM INJ 40 MG/0.4 ML DISP.SYRIN SUBCUT SCH (10:00)
[2019-05-01] MEDS ORDERED: (PENDING PHARMACY ID) (Paroxetine Hcl [Paxil] 10 MG) PO SCH (10:00)
[2019-05-01] MEDS ORDERED: THIAMINE HCL 100 MG TABLET PO SCH (10:00)
[2019-05-01] MEDS ORDERED: DOCUSATE SODIUM 100 MG CAPSULE PO SCH (10:00)
[2019-05-01] MEDS ORDERED: LISINOPRIL 10 MG TABLET PO SCH (10:00)
[2019-05-01] MEDS ORDERED: QUETIAPINE FUMARATE 100 MG TABLET PO SCH (18:00)
[2019-05-01] MEDS ORDERED: QUETIAPINE FUMARATE 300 MG PO SCH (18:00)
--- NOTE | 2019-05-02 10:42 | EKG REPORT ---
SEVERITY:- ABNORMAL ECG - SINUS RHYTHM PROBABLE LEFT ATRIAL ABNORMALITY NONSPECIFIC IVCD WITH LAD LEFT VENTRICULAR HYPERTROPHY : Confirmed by: Nasir Hernandez 02-May-2019 10:41:47
== END 2019-04-30 19:27 | disposition left against medical advice (07) | DRG 291 ==
LOC: ER 09:57 → EH 12:30 → 3S 14:41
PROVIDERS: ADMIT Internal Medicine; ATTEND Internal Medicine
DX: I13.0 Hypertensive heart and chronic kidney disease with heart failure and stage 1 through stage 4 chronic kidney disease, or unspecified chronic kidney disease (principal); I50.43 Acute on chronic combined systolic (congestive) and diastolic (congestive) heart failure; I16.1 Hypertensive emergency; N18.3 Chronic kidney disease, stage 3 (moderate); I25.10 Atherosclerotic heart disease of native coronary artery without angina pectoris; F17.210 Nicotine dependence, cigarettes, uncomplicated; F31.9 Bipolar disorder, unspecified; I25.5 Ischemic cardiomyopathy; I87.8 Other specified disorders of veins; Z95.1 Presence of aortocoronary bypass graft; T50.916A Underdosing of multiple unspecified drugs, medicaments and biological substances, initial encounter; Z88.8 Allergy status to other drugs, medicaments and biological substances
CPT/HCPCS: 36415; 71045; 80053; 81001; 82140; 83605; 83690; 83735; 83880; 84484; 85025; 85610; 87040; 87804; 93005; 93010; 96374; 99291; J1940; J3490

== ENCOUNTER 2019-05-12 11:51 | Inpatient (IN) | payer MEDICARE, MEDICAID ==
[2019-05-12] MEDS ORDERED: FUROSEMIDE INJ/PF 40 MG/4 ML SDV IV ONE (12:04)
[2019-05-12] MEDS ORDERED: IPRATROPIUM/ALBUTEROL 0.5-2.5 MG/3 ML AMPUL NEB ONE (12:04)
--- NOTE | 2019-05-12 12:22 | ER Document Report ---
ED General - General Chief Complaint: Breathing Difficulty Stated Complaint: DIFFICULTY BREATHING Time Seen by Provider: 05/12/19 11:54 Primary Care Provider: SB NELSON DO [NO LOCAL MD] - Follow up as needed Notes: 58-year-old male presents with dyspnea for the past several weeks. Patient was recently admitted to [facility] and signed out AGAINST MEDICAL ADVICE. Patient also has noted swelling to his abdomen and around his eyes. Patient has a history of CHF. Upon EMS arrival patient was found to be in the low 80s and cyanotic. Breathing treatments were administered and Solu-Medrol 125 mg. Patient normally is on 2 L of O2 at home. Patient denies any chest pain. Patient also states wound to his right foot and back of right lower ankle. Patient denies any fever or chest pain. TRAVEL OUTSIDE OF THE [place] IN LAST 30 DAYS: No - Related Data Allergies/Adverse Reactions: risperidone [From Risperdal] Allergy (Verified 04/30/19 12:35) trazodone Allergy (Verified 04/30/19 12:35) Past Medical History - Social History Smoking Status: Current Every Day Smoker Family History: Reviewed & Not Pertinent - Past Medical History Cardiac Medical History: Reports: Hx Congestive Heart Failure, Hx Hypertension Renal/ Medical History: Denies: Hx Peritoneal Dialysis Psychiatric Medical History: Reports: Hx Bipolar Disorder Past Surgical History: Reports: Hx Coronary Artery Bypass Graft, Hx Open Heart Surgery, Hx Valve Replacement Review of Systems - Review of Systems Notes: Constitutional: Negative for fever. HENT: Positive for periorbital swelling. Negative for sore throat. Eyes: Negative for visual changes. Cardiovascular: Negative for chest pain. Respiratory: Positive for shortness of breath. Gastrointestinal: Positive for abdominal distention. Negative for abdominal pain, vomiting or diarrhea. Genitourinary: Negative for dysuria. Musculoskeletal: Negative for back pain. Skin: Negative for rash. Neurological: Negative for headaches, weakness or numbness. 10 point ROS negative except as marked above and in HPI. Physical Exam - Vital signs Vitals: Pulse Ox 99 05/12/19 11:55 - Notes Notes: GENERAL: Well-appearing, well-nourished and in acute distress. HEAD: Atraumatic, normocephalic. EYES: Periorbital swelling., extraocular movements intact, sclera anicteric, conjunctiva are normal. NECK: Normal range of motion, supple without lymphadenopathy or JVD. LUNGS: Tachypneic and rales noted throughout lung story. Mild cyanosis to lips. HEART: Regular rate and rhythm without murmurs, rubs or gallops. ABDOMEN: Soft, abdominal distention. EXTREMITIES: Mild swelling noted to bilateral lower extremities. Wound noted to the right foot and right posterior ankle. NEUROLOGICAL: Cranial nerves II through XII grossly intact. Normal speech, normal gait. PSYCH: Normal mood, normal affect. SKIN: Warm, Dry, normal turgor, no rashes or lesions noted. Course - Re-evaluation Re-evalutation: 05/12/19 concern for CHF versus COPD exacerbation. Cardiac and septic work-up were initiated. Patient has periorbital swelling and abdominal distention. Lungs decreased breath sounds with rales noted throughout. DuoNeb treatment and 40 mg of Lasix ordered. Patient is currently on 4 L of O2 with improvement in O2 sats. 05/12/19 12:52 CXR read states no acute abnormalities however was reviewed by attending, Dr. Sanabria, and myself and shows vascular congestion. 05/12/19 12:54 Lactic 2.9. Pt is afebrile. Sepsis fluid bolus not ordered due to pt being volume overloaded. 05/12/19 12:57 No leukocytosis. 05/12/19 13:19 Discussed with attending, Dr. Sanabria, who recommended culture of right foot and broad spectrum antibiotics. BNP 8970. Trop 0.039 which is lower than it has been in past. 05/12/19 13:[address] Brooks who states pt may go to [facility]. 05/12/19 13:32 Spoke to [facility] who accepted pt for admission to tele floor. - Vital Signs Vital signs: Temp Pulse Resp BP Pulse Ox 97.8 F 23 H 192/89 H 95 05/12/19 12:16 05/12/19 13:01 05/12/19 13:00 05/12/19 13:01 - Laboratory Result Diagrams: 05/12/19 12:00 05/12/19 12:00 Laboratory results interpreted by me: 05/12/19 05/12/19 05/12/19 12:00 12:00 12:00 Hgb 12.6 L MCV 79 L MCH 25.5 L RDW 23.6 H Lymph % (Auto) 6.3 L Seg Neutrophils % 82.3 H PT 16.7 H Carbon Dioxide 20 L BUN 28 H Creatinine 1.61 H Est GFR ( Amer) 53 L Est GFR (MDRD) Non-Af 44 L Lactic Acid Total Bilirubin 3.1 H Direct Bilirubin 1.4 H Alkaline Phosphatase 200 H NT-Pro-B Natriuret Pep 05/12/19 05/12/19 12:00 12:00 Hgb MCV MCH RDW Lymph % (Auto) Seg Neutrophils % PT Carbon Dioxide BUN Creatinine Est GFR ( Amer) Est GFR (MDRD) Non-Af Lactic Acid 2.9 H Total Bilirubin Direct Bilirubin Alkaline Phosphatase NT-Pro-B Natriuret Pep 8970 H Discharge - Discharge Clinical Impression: Lactic acidosis Acute exacerbation of CHF (congestive heart failure) Qualifiers: Heart failure type: unspecified Qualified Code(s): I50.9 - Heart failure, unspecified Foot ulcer, right Qualifiers: Non-pressure ulcer stage: unspecified non-pressure ulcer stage Qualified Code(s): L97.519 - Non-pressure chronic ulcer of other part of right foot with unspecified severity Condition: Stable Disposition: ADMITTED INPATIENT Admitting Provider: Cecilia (Hospitalist) - [facility] Admitted: Telemetry Referrals: SB NELSON DO [NO LOCAL MD] - Follow up as needed
[2019-05-12 12:28] LABS: VENOUS BLOOD BASE EXCESS -3.8 mmol/L; VENOUS BLOOD HCO3 22.2 mmol/L (20-32); VENOUS BLOOD PCO2 43.4 mmHg (35-63); VENOUS BLOOD PH 7.33 (7.30-7.42)
[2019-05-12 12:32] LABS: ABSOLUTE BASOPHILS # (AUTO) 0.1 10^3/uL (0.0-0.2); ABSOLUTE EOSINOPHILS # (AUTO) 0.2 10^3/uL (0.0-0.6); ABSOLUTE LYMPHOCYTES (AUTO) 0.5 10^3/uL (0.5-4.7); ABSOLUTE MONOCYTES (AUTO) 0.6 10^3/uL (0.1-1.4); ABSOLUTE NEUT (AUTO) 6.1 10^3/uL (1.7-8.2); BASOPHILS % (AUTO) 0.7 % (0-2); EOSINOPHILS % (AUTO) 3.1 % (0-6); HEMATOCRIT 39.1 % (37.9-51.0); HEMOGLOBIN 12.6 g/dL (13.5-17.0); LYMPHOCYTES % (AUTO) 6.3 % (13-45); MEAN CORPUSCULAR HEMOGLOBIN 25.5 pg (27.0-33.4); MEAN CORPUSCULAR HGB CONC 32.3 g/dL (32.0-36.0); MEAN CORPUSCULAR VOLUME 79 fl (80-97); MONOCYTES % (AUTO) 7.6 % (3-13); PLATELET COUNT 233 10^3/uL (150-450); RED BLOOD COUNT 4.95 10^6/uL (4.35-5.55); RED CELL DISTRIBUTION WIDTH 23.6 % (11.5-14.0); SEGMENTED NEUTROPHILS % (AUTO) 82.3 % (42-78); TOTAL CELLS COUNTED % (AUTO) 100 %; WHITE BLOOD COUNT 7.4 10^3/uL (4.0-10.5)
--- NOTE | 2019-05-12 12:35 | RADIOLOGY REPORT (SQ) ---
EXAM DESCRIPTION: CHEST SINGLE VIEW COMPLETED DATE/TIME: 05/12/2019 12:23 pm REASON FOR STUDY: bed 3 sepsis protocol COMPARISON: AP view of the chest from 08/29/2019. EXAM PARAMETERS: NUMBER OF VIEWS: One view. TECHNIQUE: An AP view of the chest was obtained. RADIATION DOSE: NA LIMITATIONS: None. FINDINGS: LUNGS AND PLEURA: Unchanged pleural and parenchymal opacities in the right hemithorax. Th ere is no acute consolidation, pleural effusion or pneumothorax. MEDIASTINUM AND HILAR STRUCTURES: Stable mediastinal and hilar contours. HEART AND VASCULAR STRUCTURES: The cardiac silhouette is borderline enlarged. BONES: No acute findings. HARDWARE: None in the chest. OTHER: No other finding. IMPRESSION: No acute cardiopulmonary process. TECHNICAL DOCUMENTATION: JOB ID: [id number] 2010 [employer]- All Rights Reserved Reading location - IP/workstation name: [email or web address]
[2019-05-12] MEDS ORDERED: MORPHINE SULFATE 10 MG/ML INJ IV ONE (12:41)
[2019-05-12 12:44] LABS: INTERNATIONAL RATION (INR) 1.35; PROTHROMBIN TIME 16.7 SEC (11.4-15.4)
[2019-05-12 12:59] LABS: ALBUMIN 3.9 g/dL (3.5-5.0); ALKALINE PHOSPHATASE 200 U/L (38-126); ANION GAP 12 (5-19); ASPARTATE AMINO TRANSFERASE 24 U/L (17-59); BILIRUBIN,DIRECT 1.4 mg/dL (0.0-0.4); BILIRUBIN,TOTAL 3.1 mg/dL (0.2-1.3); BLOOD UREA NITROGEN 28 mg/dL (7-20); CALCIUM 9.2 mg/dL (8.4-10.2); CARBON DIOXIDE 20 mmol/L (22-30); CHLORIDE 106 mmol/L (98-107); GLUCOSE 97 mg/dL (75-110); POTASSIUM 4.9 mmol/L (3.6-5.0)
[2019-05-12 13:02] LABS: TROPONIN I 0.039 ng/mL
--- NOTE | 2019-05-12 13:02 | EKG REPORT ---
SEVERITY:- ABNORMAL ECG - SINUS RHYTHM LEFT ANTERIOR FASCICULAR BLOCK LEFT VENTRICULAR HYPERTROPHY : Confirmed by: Alvaro Bowden MD 12-May-2019 13:01:33
[2019-05-12] MEDS ORDERED: VANCOMYCIN HCL INJ 1000 MG VIAL IV ONE (13:19)
[2019-05-12] MEDS ORDERED: PIPERACILLIN/TAZOBACTAM 3.375 GM VIAL IV ONE (13:19)
[2019-05-12] MEDS ORDERED: MAG HYDROX/AL HYDROX/SIMETH SUSP 30 ML UDCUP PO PRN (14:21)
[2019-05-12] MEDS ORDERED: MAGNESIUM HYDROXIDE SUSP 30 ML UDCUP PO PRN (14:21)
[2019-05-12] MEDS ORDERED: METHYLPREDNISOLONE INJ 125 MG/2 ML SDV IV ONE (15:00)
[2019-05-12] MEDS: HYDRALAZINE HCL INJ/PF 20 MG/1 ML SDV IV PRN (15:06)
[2019-05-12] MEDS: LEVALBUTEROL HCL NEB 1.25 MG/3 ML AMPUL NEB PRN (16:30)
[2019-05-12 17:32] LABS: ARTERIAL BLOOD BASE EXCESS -5.4 mmol/L; ARTERIAL BLOOD FIO2 5L; ARTERIAL BLOOD H2CO3 0.82 mmol/L (1.05-1.35); ARTERIAL BLOOD HCO3 17.5 mmol/L (20-24); ARTERIAL BLOOD O2 SATURATION 94.8 % (94-98); ARTERIAL BLOOD PCO2 27.4 mmHg (35-45); ARTERIAL BLOOD PH 7.42 (7.35-7.45); ARTERIAL BLOOD PO2 70.6 mmHg (80-100); ARTERIAL BLOOD TOTAL CO2 18.3 mmol/L (23-27)
[2019-05-12] MEDS: FAMOTIDINE 20 MG TABLET PO SCH (17:49)
[2019-05-12] MEDS: FUROSEMIDE INJ/PF 20 MG/2 ML SDV IV SCH (17:54)
[2019-05-12] MEDS: CEFAZOLIN 1 GM/D5W RTU 1 GM/50 ML RTUPB IV SCH (17:55)
[2019-05-12] MEDS ORDERED: RANITIDINE HCL 150 MG PO SCH (18:00)
[2019-05-12] MEDS ORDERED: QUETIAPINE FUMARATE 300 MG PO SCH (18:00)
--- NOTE | 2019-05-12 18:23 | PDOC H&P ---
History of Present Illness Admission Date/PCP: 05/12/19 14:02 LISSETTE CASTRO MD Patient complains of: shortness of breath History of Present Illness: JUJU ANDRADE is a 58 year old male with a past medical history of hypertension, CAD, CHF, CKD, hepatic congestion, COPD, Depression, and remote amphetamine abuse who presented to the emergency department today with a complaint of worsening abdominal distention x1 week, worsening bilateral leg pain x1 week, and shortness of breath with orthopnea that has gradually worsened over the last several weeks. Upon EMS arrival, the patient was found to be cyanotic with an room air saturation in the 80s. He was provided IV Solu-Medrol and placed on supplemental oxygen with some improvement. Further evaluation in the emergency department revealed hypertension (197/105), tachypnea (RR 32), hypoxia on room air, unremarkable CBC, INR 1.35, normal VBG, and a chemistry showing creatinine of 1.61 (at baseline), elevated lactic acid of 2.9, proBNP of 8900 and an indeterminate troponin of 0.039. Patient does deny chest pain. EKG shows sinus rhythm with LVH, chest x-ray suggestive of pulmonary vascular congestion. He is referred to the hospitalist service for admission and management of the above-stated complaints and findings. Past Medical History Cardiac Medical History: Reports: Congestive Heart Failure, Coronary Artery Disease, Hyperlipidema, Hypertension Pulmonary Medical History: Reports: Chronic Obstructive Pulmonary Disease (COPD), Respiratory Failure EENT Medical History: Reports: None Neurological Medical History: Reports: None Endocrine Medical History: Reports: Obesity Renal/ Medical History: Reports: Chronic Kidney Disease GI Medical History: Reports: Gastroesophageal Reflux Disease Musculoskeltal Medical History: Reports: Arthritis Skin Medical History: Reports: None Psychiatric Medical History: Reports: Bipolar Disorder Traumatic Medical History: Reports: None Hematology: Reports: None Infectious Medical History: Reports: None Past Surgical History Past Surgical History: Reports: Coronary Artery Bypass Graft, Valve Replacement Social History Information Source: Patient Lives with: Alone Smoking Status: Current Every Day Smoker Electronic Cigarette use?: Yes Frequency of Alcohol Use: None Hx Recreational Drug Use: No Hx Prescription Drug Abuse: No - Advance Directive Resuscitation Status: Full Code Family History Family History: Reviewed & Not Pertinent Parental Family History Reviewed: Yes Children Family History Reviewed: Yes Sibling(s) Family History Reviewed.: Yes Medication/Allergy Home Medications: Albuterol Sulfate [Ventolin Hfa 8 gm Mdi] 2 puff IH Q6HP PRN 04/30/19 Furosemide [Lasix 40 mg Tablet] 40 mg PO BID 04/30/19 Omeprazole Magnesium [Prilosec Otc] 40 mg PO DAILY 04/30/19 Paroxetine HCl [Paxil] 10 mg PO DAILY 04/30/19 Quetiapine Fumarate [Quetiapine Fumarate ER] 300 mg PO QPM 04/30/19 Ranitidine HCl [Heartburn Relief] 150 mg PO BID 04/30/19 Rivaroxaban [Xarelto] 2.5 mg PO Q12 04/30/19 Sacubitril/Valsartan [Entresto 24 mg/26 mg Tablet] 1 tab PO Q12 04/30/19 Thiamine HCl [Thiamine 100 mg Tablet] 100 mg PO DAILY 04/30/19 Hydroxyzine Pamoate [Vistaril 25 mg Capsule] 25 mg PO QHS 05/12/19 Multivitamin/Iron/Folic Acid [Centrum Adults Tablet] 1 each PO DAILY 05/12/19 Paroxetine HCl [Paxil] 40 mg PO DAILY 05/12/19 Quetiapine Fumarate [Seroquel Xr] 150 mg PO QPM 05/12/19 Vitamin B Complex/Folic Acid [B-Complex Tablet] 1 tab PO DAILY 05/12/19 Allergies/Adverse Reactions: risperidone [From Risperdal] Allergy (Verified 04/30/19 12:35) trazodone Allergy (Verified 04/30/19 12:35) Review of Systems Constitutional: PRESENT: fatigue. ABSENT: chills, fever(s), headache(s), weight gain, weight loss Eyes: ABSENT: visual disturbances Ears: ABSENT: hearing changes Cardiovascular: PRESENT: dyspnea on exertion, orthropnea. ABSENT: chest pain, edema, palpitations Respiratory: PRESENT: cough, dyspnea. ABSENT: hemoptysis Gastrointestinal: ABSENT: abdominal pain, constipation, diarrhea, hematemesis, hematochezia, nausea, vomiting Genitourinary: ABSENT: dysuria, hematuria Musculoskeletal: ABSENT: joint swelling Integumentary: PRESENT: as per HPI, erythema, lesions, pruritus, wounds. ABSENT: rash Neurological: ABSENT: abnormal gait, abnormal speech, confusion, dizziness, fo axel weakness, syncope Psychiatric: ABSENT: anxiety, depression, homidical ideation, suicidal ideation Endocrine: ABSENT: cold intolerance, heat intolerance, polydipsia, polyuria Hematologic/Lymphatic: ABSENT: easy bleeding, easy bruising Physical Exam Vital Signs: Temp Pulse Resp BP Pulse Ox 97.7 F 95 32 H 149/86 H 100 05/12/19 15:38 05/12/19 16:53 05/12/19 16:30 05/12/19 15:38 05/12/19 16:30 Intake & Output 05/11/19 05/12/19 05/13/19 06:59 06:59 06:59 Weight 115.7 kg General appearance: PRESENT: disheveled, mild distress, obese, well-developed, well-nourished Head exam: PRESENT: atraumatic, normocephalic Eye exam: PRESENT: conjunctiva pink, EOMI, periorbital swelling, PERRLA. ABSENT: scleral icterus Mouth exam: PRESENT: moist, tongue midline Teeth exam: PRESENT: poor dentation Neck exam: PRESENT: JVD. ABSENT: carotid bruit, lymphadenopathy, thyromegaly Respiratory exam: PRESENT: accessory muscle use, crackles, prolonged expiratory phas, symmetrical, tachypnea, other - Supplemental oxygen by nasal cannula. ABSENT: rales, rhonchi, wheezes Cardiovascular exam: PRESENT: RRR, +S1, +S2. ABSENT: diastolic murmur, rubs, systolic murmur Pulses: PRESENT: +1 pedal pulses bilateral - Right, other - Trace pedal pulse on left with dusky toes, poor capillary refill Vascular exam: PRESENT: pallor GI/Abdominal exam: PRESENT: distended, firm, normal bowel sounds. ABSENT: guarding, mass, organolmegaly, rebound, tenderness Rectal exam: PRESENT: deferred Extremities exam: PRESENT: full ROM. ABSENT: calf tenderness, clubbing, pedal edema Neurological exam: PRESENT: alert, awake, oriented to person, oriented to place, oriented to time, oriented to situation, CN II-XII grossly intact. ABSENT: motor sensory deficit Psychiatric exam: PRESENT: appropriate affect, normal mood. ABSENT: homicidal ideation, suicidal ideation Skin exam: PRESENT: cyanosis - Left toes, erythema - Bilateral lower extremities with, warm. ABSENT: rash Results Laboratory Results: 05/12/19 12:00 05/12/19 12:00 05/12/19 05/12/1920 12:00 12:00 12:00 WBC 7.4 RBC 4.95 Hgb 12.6 L Hct 39.1 MCV 79 L MCH 25.5 L MCHC 32.3 RDW 23.6 H Plt Count 233 Seg Neutrophils % 82.3 H Carbonic Acid HCO3/H2CO3 Ratio ABG pH ABG pCO2 ABG pO2 ABG HCO3 ABG O2 Saturation ABG Base Excess VBG pH VBG pCO2 VBG HCO3 VBG Base Excess FiO2 Sodium 137.9 Potassium 4.9 Chloride 106 Carbon Dioxide 20 L Anion Gap 12 BUN 28 H Creatinine 1.61 H Est GFR ( Amer) 53 L Glucose 97 Lactic Acid 2.9 H Calcium 9.2 Total Bilirubin 3.1 H AST 24 Alkaline Phosphatase 200 H Total Protein 7.0 Albumin 3.9 05/12/19 05/12/19 05/12/19 12:00 14:50 17:18 WBC RBC Hgb Hct MCV MCH MCHC RDW Plt Count Seg Neutrophils % Carbonic Acid 0.82 L HCO3/H2CO3 Ratio 21:1 ABG pH 7.42 ABG pCO2 27.4 L ABG pO2 70.6 L ABG HCO3 17.5 L ABG O2 Saturation 94.8 ABG Base Excess -5.4 VBG pH 7.33 VBG pCO2 43.4 VBG HCO3 22.2 VBG Base Excess -3.8 FiO2 5L Sodium Potassium Chloride Carbon Dioxide Anion Gap BUN Creatinine Est GFR ( Amer) Glucose Lactic Acid 3.1 H Calcium Total Bilirubin AST Alkaline Phosphatase Total Protein Albumin 05/12/19 12:00 Troponin I 0.039 NT-Pro-B Natriuret Pep 8970 H Impressions: Chest X-Ray 05/12/19 11:53 IMPRESSION: No acute cardiopulmonary process. Assessment and Plan - Diagnosis (1) Acute combined systolic and diastolic congestive heart failure, NYHA class 4 Is this a current diagnosis for this admission?: Yes Plan: Patient with evidence of acute CHF exacerbation on exam with periorbital edema, hypoxia, bibasilar crackles, massively distended abdomen, and poor capillary refill to extremities. Patient confirms that this is similar to the symptoms that he generally has when he misses his Lasix; he denies medication or dietary indiscretion. proBNP elevated 8000. Echocardiogram pending Patient is admitted to [facility] on continuous cardiac telemetry. He is placed on supplemental oxygen and BiPAP as needed to maintain saturations greater than 89%. He will receive IV furosemide for diuresis. He is placed on home dose Entresto and Xarelto. He is provided daily aspirin therapy. It does not appear the patient is on daily beta-laurie therapy; will need to initiate prior to discharge. Cardiac diet. Daily weights and strict I&O's. (2) COPD (chronic obstructive pulmonary disease) Qualifiers: COPD type: COPD with acute exacerbation Qualified Code(s): J44.1 - Chronic obstructive pulmonary disease with (acute) exacerbation Is this a current diagnosis for this admission?: Yes Plan: Will provide supplemental oxygen as needed to maintain saturations greater than 89%. Start on scheduled and as needed nebulizer treatments. Provide IV Solu-Medrol. Mucinex twice daily. Robitussin as needed. Pulmonary toilet is encouraged with incentive spirometer, flutter valve, and early ambulation. (3) Acute respiratory failure with hypoxia Is this a current diagnosis for this admission?: Yes Plan: Secondary to #1 and 2. Evaluation and management as above. (4) Lactic acidosis Is this a current diagnosis for this admission?: Yes Plan: Likely secondary to acute respiratory failure with hypoxia. Patient is afebrile with normal WBCs. He does have evidence of bilateral lower extremity cellulitis and is placed on IV cefazolin. Blood cultures are pending. (5) Cellulitis, leg Qualifiers: Laterality: unspecified laterality Qualified Code(s): L03.119 - Cellulitis of unspecified part of limb Is this a current diagnosis for this admission?: Yes Plan: Bilateral lower extremity cellulitis. Bilateral lower extremity arterial ultrasound pending. Blood cultures pending Nystatin/triamcinolone cream to silver plaques on anterior shins. Silvadene to open blister on the dorsum of the right foot. He is empirically placed on IV Ancef. (6) Bipolar disorder Is this a current diagnosis for this admission?: Yes Plan: Continue home medication regiment of Paxil, Seroquel, hydroxyzine. Supportive care. - Time Time Spent with patient: 35 or more minutes Medications reviewed and adjusted accordingly: Yes Anticipated discharge: Home - Inpatient Certification Based on my medical assessment, after consideration of the patient's comorbidities, presenting symptoms, or acuity I expect that the services needed warrant INPATIENT care.: Yes I certify that my determination is in accordance with my understanding of Medicare's requirements for reasonable and necessary INPATIENT services [42 CFR 412.3e].: Yes Medical Necessity: Significant Comorbidiites Make Outpatient Treatment Too Risky, Need Close Monitoring Due to Risk of Patient Decompensation, Need For Continuous Telemetry Monitoring, Risk of Complication if Not Cared For in Hospital, Risk of Diagnosis Which Will Require Inpatient Eval/Care/Monitoring
[2019-05-12] MEDS: NYSTATIN/TRIAMCIN CREAM 15 GM TP SCH ×2 (18:25→23:05)
[2019-05-12] MEDS: IPRATROPIUM/ALBUTEROL 0.5-2.5 MG/3 ML AMPUL NEB SCH (20:04)
[2019-05-12] MEDS ORDERED: RIVAROXABAN 2.5 MG PO SCH (22:00)
[2019-05-12] MEDS ORDERED: FUROSEMIDE INJ/PF 20 MG/2 ML SDV IV SCH (22:00)
[2019-05-12] MEDS ORDERED: HEPARIN SOD (PORCINE) 5,000 UNIT/ML 1 ML VIAL SUBCUT SCH (22:00)
[2019-05-12] MEDS: HYDROXYZINE PAMOATE 25 MG CAPSULE PO SCH (22:12)
[2019-05-12] MEDS: SACUBITRIL/VALSARTAN 24 MG/26 MG TABLET PO SCH (22:50)
[2019-05-12] MEDS: METHYLPREDNISOLONE INJ 40 MG/1 ML SDV IV SCH (22:51)
[2019-05-12] MEDS ORDERED: RIVAROXABAN 10 MG TABLET PO ONE (23:30)
[2019-05-13] MEDS: FUROSEMIDE INJ/PF 20 MG/2 ML SDV IV SCH ×4 (00:04→17:23)
[2019-05-13] MEDS: CEFAZOLIN 1 GM/D5W RTU 1 GM/50 ML RTUPB IV SCH ×4 (00:04→17:23)
[2019-05-13] MEDS: IPRATROPIUM/ALBUTEROL 0.5-2.5 MG/3 ML AMPUL NEB SCH ×4 (01:41→20:29)
[2019-05-13] MEDS: MORPHINE SULFATE 10 MG/ML INJ IV PRN ×4 (04:19→17:26)
[2019-05-13] MEDS: METHYLPREDNISOLONE INJ 40 MG/1 ML SDV IV SCH ×3 (05:35→22:04)
[2019-05-13] MEDS: PANTOPRAZOLE SODIUM 40 MG TABLET.DR PO SCH (05:35)
[2019-05-13] MEDS: FAMOTIDINE 20 MG TABLET PO SCH ×2 (05:35→17:23)
[2019-05-13 06:21] LABS: ANION GAP 15 (5-19); BLOOD UREA NITROGEN 31 mg/dL (7-20); CARBON DIOXIDE 20 mmol/L (22-30); CHLORIDE 102 mmol/L (98-107); CHOLESTEROL 159.24 mg/dL (0-200); GLUCOSE 181 mg/dL (75-110); TRIGLYCERIDES 70 mg/dL (<150)
[2019-05-13 06:34] LABS: DIRECT LDL 119 mg/dL (<100)
[2019-05-13 07:02] LABS: POTASSIUM 3.8 mmol/L (3.6-5.0)
[2019-05-13] MEDS ORDERED: (PENDING PHARMACY ID) (Quetiapine Fumarate [Seroquel Xr] 150 MG) PO SCH (08:00)
[2019-05-13] MEDS: MULTIVITAMIN TABLET PO SCH (09:14)
[2019-05-13] MEDS: SACUBITRIL/VALSARTAN 24 MG/26 MG TABLET PO SCH ×2 (09:15→22:04)
[2019-05-13] MEDS: VITAMIN B COMPLEX TABLET PO SCH (09:15)
[2019-05-13] MEDS: ASPIRIN 81 MG TABLET, ENT COATED PO SCH (09:15)
[2019-05-13] MEDS: PAROXETINE HCL 20 MG TABLET PO SCH ×2 (09:15→09:16)
[2019-05-13] MEDS: THIAMINE HCL 100 MG TABLET PO SCH (09:15)
[2019-05-13] MEDS: RIVAROXABAN 2.5 MG TABLET PO SCH ×2 (09:16→22:07)
[2019-05-13] MEDS: QUETIAPINE FUMARATE 150 MG PO SCH (09:17)
[2019-05-13] MEDS ORDERED: (PENDING PHARMACY ID) (Multivitamin/Iron/Folic Acid [Centrum Adults Tablet] 1 EACH) PO SCH (10:00)
[2019-05-13] MEDS ORDERED: (PENDING PHARMACY ID) (Paroxetine Hcl [Paxil] 10 MG) PO SCH (10:00)
[2019-05-13] MEDS ORDERED: RIVAROXABAN 10 MG TABLET PO SCH (10:00)
[2019-05-13 10:28] LABS: CREATINE KINASE MB 4.88 ng/mL (<4.55); TROPONIN I 0.047 ng/mL
--- NOTE | 2019-05-13 12:02 | PDOC PROGRESS REPORT ---
Subjective Progress Note for:: 05/13/19 Reason For Visit: HEART FAILURE Patient admitted with shortness of breath and abdominal distention x1 week Physical Exam Vital Signs: Temp Pulse Resp BP Pulse Ox 97.4 F 89 21 H 118/70 93 05/13/19 07:40 05/13/19 08:50 05/13/19 08:50 05/13/19 07:40 05/13/19 08:50 Intake & Output 05/12/19 05/13/19 05/14/19 06:59 06:59 06:59 Intake Total 1310 Output Total 1900 Balance -590 Weight 114.3 kg General appearance: PRESENT: mild distress, other - Secondary to shortness of breath Respiratory exam: PRESENT: rales, wheezes Cardiovascular exam: PRESENT: RRR. ABSENT: diastolic murmur, rubs, systolic murmur Gentrourinary exam: PRESENT: lesions, other - Both lower extremities from the knees down have hard white plaques, skin is very tight Both lower feet appear to be purplish in color Neurological exam: PRESENT: alert, awake, oriented to person, oriented to place, oriented to time, oriented to situation, CN II-XII grossly intact. ABSENT: mot or sensory deficit Psychiatric exam: PRESENT: appropriate affect, normal mood. ABSENT: homicidal ideation, suicidal ideation Results Laboratory Results: 05/12/19 12:00 05/13/19 05:26 05/12/19 05/12/19 05/12/19 12:00 12:00 12:00 WBC 7.4 RBC 4.95 Hgb 12.6 L Hct 39.1 MCV 79 L MCH 25.5 L MCHC 32.3 RDW 23.6 H Plt Count 233 Seg Neutrophils % 82.3 H Carbonic Acid HCO3/H2CO3 Ratio ABG pH ABG pCO2 ABG pO2 ABG HCO3 ABG O2 Saturation ABG Base Excess VBG pH VBG pCO2 VBG HCO3 VBG Base Excess FiO2 Sodium 137.9 Potassium 4.9 Chloride 106 Carbon Dioxide 20 L Anion Gap 12 BUN 28 H Creatinine 1.61 H Est GFR ( Amer) 53 L Glucose 97 Lactic Acid 2.9 H Calcium 9.2 Total Bilirubin 3.1 H AST 24 Alkaline Phosphatase 200 H Total Protein 7.0 Albumin 3.9 Triglycerides Cholesterol LDL Cholesterol Direct VLDL Cholesterol HDL Cholesterol TSH 05/12/19 05/12/19 05/12/19 12:00 14:50 17:18 WBC RBC Hgb Hct MCV MCH MCHC RDW Plt Count Seg Neutrophils % Carbonic Acid 0.82 L HCO3/H2CO3 Ratio 21:1 ABG pH 7.42 ABG pCO2 27.4 L ABG pO2 70.6 L ABG HCO3 17.5 L ABG O2 Saturation 94.8 ABG Base Excess -5.4 VBG pH 7.33 VBG pCO2 43.4 VBG HCO3 22.2 VBG Base Excess -3.8 FiO2 5L Sodium Potassium Chloride Carbon Dioxide Anion Gap BUN Creatinine Est GFR ( Amer) Glucose Lactic Acid 3.1 H Calcium Total Bilirubin AST Alkaline Phosphatase Total Protein Albumin Triglycerides Cholesterol LDL Cholesterol Direct VLDL Cholesterol HDL Cholesterol TSH 05/12/19 05/13/19 05/13/19 18:31 05:26 05:26 WBC RBC Hgb Hct MCV MCH MCHC RDW Plt Count Seg Neutrophils % Carbonic Acid HCO3/H2CO3 Ratio ABG pH ABG pCO2 ABG pO2 ABG HCO3 ABG O2 Saturation ABG Base Excess VBG pH VBG pCO2 VBG HCO3 VBG Base Excess FiO2 Sodium 137.1 Potassium 3.8 D Chloride 102 Carbon Dioxide 20 L Anion Gap 15 BUN 31 H Creatinine 1.72 H Est GFR ( Amer) 49 L Glucose 181 H Lactic Acid 3.7 H Calcium 9.0 Total Bilirubin AST Alkaline Phosphatase Total Protein Albumin Triglycerides 70 Cholesterol 159.24 LDL Cholesterol Direct 119 H VLDL Cholesterol 14.0 HDL Cholesterol 36 L TSH 2.81 05/13/19 09:35 WBC RBC Hgb Hct MCV MCH MCHC RDW Plt Count Seg Neutrophils % Carbonic Acid HCO3/H2CO3 Ratio ABG pH ABG pCO2 ABG pO2 ABG HCO3 ABG O2 Saturation ABG Base Excess VBG pH VBG pCO2 VBG HCO3 VBG Base Excess FiO2 Sodium Potassium Chloride Carbon Dioxide Anion Gap BUN Creatinine Est GFR ( Amer) Glucose Lactic Acid 2.3 H Calcium Total Bilirubin AST Alkaline Phosphatase Total Protein Albumin Triglycerides Cholesterol LDL Cholesterol Direct VLDL Cholesterol HDL Cholesterol TSH 05/12/19 05/12/19 05/13/19 12:00 18:31 00:16 CK-MB (CK-2) Troponin I 0.039 0.041 0.039 NT-Pro-B Natriuret Pep 8970 H 05/13/19 09:35 CK-MB (CK-2) 4.88 H Troponin I 0.047 NT-Pro-B Natriuret Pep Impressions: Chest X-Ray 05/12/19 11:53 IMPRESSION: No acute cardiopulmonary process. Assessment and Plan - Diagnosis (1) Acute respiratory failure with hypoxia Is this a current diagnosis for this admission?: Yes (2) Bipolar disorder Is this a current diagnosis for this admission?: Yes (3) Foot ulcer, right Qualifiers: Non-pressure ulcer stage: unspecified non-pressure ulcer stage Qualified Code(s): L97.519 - Non-pressure chronic ulcer of other part of right foot with unspecified severity Is this a current diagnosis for this admission?: Yes (4) Lactic acidosis Is this a current diagnosis for this admission?: Yes (5) Abdominal pain Qualifiers: Abdominal location: epigastric Qualified Code(s): R10.13 - Epigastric pain Is this a current diagnosis for this admission?: Yes (6) Acute combined systolic and diastolic congestive heart failure, NYHA class 4 Is this a current diagnosis for this admission?: Yes (7) Acute renal failure superimposed on stage 3 chronic kidney disease Is this a current diagnosis for this admission?: Yes (8) COPD (chronic obstructive pulmonary disease) Qualifiers: COPD type: COPD with acute exacerbation Qualified Code(s): J44.1 - Chronic obstructive pulmonary disease with (acute) exacerbation Is this a current diagnosis for this admission?: Yes (9) Elevated troponin Is this a current diagnosis for this admission?: Yes (10) Hypertension Qualifiers: Hypertension type: essential hypertension Qualified Code(s): I10 - Essential (primary) hypertension Is this a current diagnosis for this admission?: Yes (11) Venous stasis Is this a current diagnosis for this admission?: Yes - Plan Summary Summary: 05/13/2019 Temp 98 6 pulse 82 blood pressure 151/73 O2 sat 94% on 5 L nasal cannula Patient has been on 5 L of oxygen since he was admitted. Patient states that while in the emergency room he was on BiPAP and he felt much better and is asking for BiPAP again. I agree he may feel better so I have ordered BiPAP BUN is up slightly from 28-31, creatinine is stable 1.7 Hemoglobin A1c is 6.0 lactic acid is down to 2.3 from 3.7 Troponins are basically stable doubly elevated due to his respiratory drive Chest x-ray shows cardiomegaly but no acute disease We will repeat BNP in the morning. Patient currently on Lasix 20 mg IV every 6 hours Entresto every 12 hours solu Medrol 40 mg every 8 hours Ancef every 6 hours Patient is also on his Xarelto 2.5 mg every 12 hours - Time Time Spent with patient: 25-34 minutes
[2019-05-13] MEDS: LEVALBUTEROL HCL NEB 1.25 MG/3 ML AMPUL NEB PRN (12:33)
[2019-05-13] MEDS: SILVER SULFADIAZINE 1% CREAM 25 GM TP SCH (13:14)
[2019-05-13] MEDS: NYSTATIN/TRIAMCIN CREAM 15 GM TP SCH ×3 (13:14→22:05)
--- NOTE | 2019-05-13 17:43 | XCELERA REPORT ---
[address] [address] Lower Extremity Arterial Evaluation Name: JUJU ANDRADE Age: 58 yrs Gender: Male : 1960 Patient Status: Inpatient Patient Location: [address] [place], [place] [address]A Study Date: 05/12/2019 03:33 PM Procedure: A color flow and duplex scan of the lower extremity arteries was performed bilaterally with velocity and waveform anaylsis. 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 Normal velocity and triphasic waveforms noted in the Common Femoral and Femoral arteries. Biphasic with low velocity, spectral broadening from the Popliteal to the infrageniculate vessels . Biphasic with low velocity in the Dorsalis peds with retrograde flow. Ankle Brachial index not done. Left Side Arterial Evaluation Vessel wall irregularity, suggestive of plaque noted in the Femoral artery. Normal velocity and triphasic waveforms noted from the Common Femoral to Popliteal artery. Biphasic with low velocity, spectral broadening in the infrageniculate vessels . Monophasic with low velocity in the Dorsalis peds with retrograde flow. Ankle Brachial index not done. Interpretation Summary Moderate hemodynamically significant lesions in the bilateral lower extremities, on duplex imaging, at rest. Duplex findings verge on severe, with barely biphasic waveforms in the infrageniculate vessels. No focal stenosis identified, but significant arterial obstructive disease noted in the Popliteal on the right, infrageniculate vessels on the left. : KANE BORGES > Darrell Powell
[2019-05-13] MEDS: HYDROXYZINE PAMOATE 25 MG CAPSULE PO SCH (22:04)
[2019-05-13] MEDS: QUETIAPINE FUMARATE 300 MG PO SCH (22:06)
[2019-05-14] MEDS: CEFAZOLIN 1 GM/D5W RTU 1 GM/50 ML RTUPB IV SCH ×2 (00:29→06:46)
[2019-05-14] MEDS: FUROSEMIDE INJ/PF 20 MG/2 ML SDV IV SCH ×2 (00:29→06:46)
[2019-05-14] MEDS: IPRATROPIUM/ALBUTEROL 0.5-2.5 MG/3 ML AMPUL NEB SCH ×4 (02:26→20:19)
[2019-05-14 04:53] LABS: HEMATOCRIT 36.6 % (37.9-51.0); HEMOGLOBIN 11.6 g/dL (13.5-17.0); MEAN CORPUSCULAR HEMOGLOBIN 25.1 pg (27.0-33.4); MEAN CORPUSCULAR HGB CONC 31.8 g/dL (32.0-36.0); MEAN CORPUSCULAR VOLUME 79 fl (80-97); PLATELET COUNT 238 10^3/uL (150-450); RED BLOOD COUNT 4.65 10^6/uL (4.35-5.55); RED CELL DISTRIBUTION WIDTH 22.6 % (11.5-14.0)
[2019-05-14 05:09] LABS: ANION GAP 12 (5-19); BLOOD UREA NITROGEN 43 mg/dL (7-20); CALCIUM 8.7 mg/dL (8.4-10.2); CARBON DIOXIDE 22 mmol/L (22-30); CHLORIDE 102 mmol/L (98-107); GLUCOSE 128 mg/dL (75-110)
[2019-05-14 05:22] LABS: ABSOLUTE LYMPHOCYTES# (MANUAL) 0.6 10^3/uL (0.5-4.7); ABSOLUTE MONOCYTES # (MANUAL) 0.3 10^3/uL (0.1-1.4); BASOPHILS % (MANUAL) 0 % (0-2); EOSINOPHILS % (MANUAL) 0 % (0-6); LYMPHOCYTES % (MANUAL) 4 % (13-45); MONOCYTES % (MANUAL) 2 % (3-13); SEGMENTED NEUTROPHILS % (MAN) 94 % (42-78); TOTAL CELLS COUNTED 100
[2019-05-14 05:23] LABS: TOXIC GRANULATION SLIGHT
[2019-05-14 05:24] LABS: ANISOCYTOSIS 3+; BURR CELLS SLIGHT; OVALOCYTES SLIGHT; PLATELET COMMENT ADEQUATE; POIKILOCYTOSIS SLIGHT; POLYCHROMASIA SLIGHT; SCHISTOCYTES SLIGHT; TEAR DROP CELLS SLIGHT
[2019-05-14 05:28] LABS: POTASSIUM 4.8 mmol/L (3.6-5.0)
[2019-05-14] MEDS: METHYLPREDNISOLONE INJ 40 MG/1 ML SDV IV SCH (06:46)
[2019-05-14] MEDS: FAMOTIDINE 20 MG TABLET PO SCH (06:47)
[2019-05-14] MEDS: PANTOPRAZOLE SODIUM 40 MG TABLET.DR PO SCH (06:48)
[2019-05-14] MEDS: MORPHINE SULFATE 10 MG/ML INJ IV PRN ×3 (07:44→20:37)
[2019-05-14] MEDS: SILVER SULFADIAZINE 1% CREAM 25 GM TP SCH (09:44)
[2019-05-14] MEDS: PAROXETINE HCL 20 MG TABLET PO SCH ×2 (09:44→09:45)
[2019-05-14] MEDS: NYSTATIN/TRIAMCIN CREAM 15 GM TP SCH (09:44)
[2019-05-14] MEDS: SACUBITRIL/VALSARTAN 24 MG/26 MG TABLET PO SCH ×2 (09:45→21:52)
[2019-05-14] MEDS: MULTIVITAMIN TABLET PO SCH (09:45)
[2019-05-14] MEDS: THIAMINE HCL 100 MG TABLET PO SCH (09:45)
[2019-05-14] MEDS: VITAMIN B COMPLEX TABLET PO SCH (09:45)
[2019-05-14] MEDS: ASPIRIN 81 MG TABLET, ENT COATED PO SCH (09:45)
[2019-05-14] MEDS: QUETIAPINE FUMARATE 150 MG PO SCH (09:45)
[2019-05-14] MEDS: RIVAROXABAN 2.5 MG TABLET PO SCH ×2 (09:45→21:50)
--- NOTE | 2019-05-14 09:53 | RADIOLOGY REPORT (SQ) ---
EXAM DESCRIPTION: CHEST 2 VIEWS COMPLETED DATE/TIME: 05/14/2019 9:25 am REASON FOR STUDY: sob COMPARISON: AP view of the chest from 05/12/2019. EXAM PARAMETERS: NUMBER OF VIEWS: Two views. TECHNIQUE: AP and lateral views of the chest were obtained. RADIATION DOSE: NA LIMITATIONS: none FINDINGS: LUNGS AND PLEURA: Chronic interstitial opacities in the right hemithorax that are associat ed with mild volume loss. There is no acute consolidation, sizeable pleural effusion or pneumothorax . MEDIASTINUM AND HILAR STRUCTURES: Stable mediastinal and hilar contours. HEART AND VASCULAR STRUCTURES: Stable cardiac silhouette. BONES: No acute findings. HARDWARE: None in the chest. OTHER: No other finding. IMPRESSION: No acute cardiopulmonary process. TECHNICAL DOCUMENTATION: JOB ID: [id number] 2010 [employer]- All Rights Reserved Reading location - IP/workstation name: [email or web address]
[2019-05-14] MEDS ORDERED: IPRATROPIUM/ALBUTEROL 0.5-2.5 MG/3 ML AMPUL NEB PRN (10:27)
[2019-05-14] MEDS ORDERED: CEFEPIME 1 GM/D5W RTU 1 GM/50 ML RTUPB IV SCH ×2 (11:00→22:00)
--- NOTE | 2019-05-14 11:36 | XCELERA REPORT ---
[address] [address] Transthoracic Echocardiogram Report Name: JUJU ANDRADE Age: 58 yrs Gender: Male : 1960 Patient Status: Inpatient Patient Location: [address] [place] [address] Study Date: 05/12/2019 08:31 PM Height: 76 in Weight: 255 lb BSA: 2.5 m2 Procedure: A two-dimensional transthoracic echocardiogram with color flow and Doppler was performed. Study Quality: Technically suboptimal. Reason For Study: CHF exacerbation History: CHF. Ordering Physician: KANE BORGES Performed By: Sabina Aguirre Interpretation Summary LV EF is 25% The left ventricle is moderately dilated. There is normal left ventricular wall thickness. Doppler measurements suggest impaired left ventricular relaxation, which is associated with grade I/IV or mild diastolic dysfunction Left ventricular systolic function is severely reduced. There is severe global hypokinesis of the left ventricle. Flattened septum is consistent with RV pressure/volume overload There is no thrombus. Cannot assess ASD,VSD ,or PFO. The right ventricle is grossly normal size. The right atrium is mildly dilated. The left atrium is severely dilated. There is mild mitral annular calcification. There is no evidence of mitral valve prolapse. There is no vegetation seen on the mitral valve. There is no mitral valve stenosis. There is a mild to moderate amount of mitral regurgitation There is no aortic valvular vegetation. There is no LVOT obstruction. There is aortic sclerosis without aortic stenosis. No aortic regurgitation is present. There is no tricuspid stenosis. There is a mild to moderate amount of tricuspid regurgitation There is servere pulmonary hypertension by echo RVSP is 96 to 100 mm of Hg , with RA mean of 15 to 20. There is no pulmonic valvular stenosis. There is a trace amount of pulmonic regurgitation The aortic root is normal size. The inferior vena cava was not well visualized Unable to see respiratory variation of the IVC. There is no pericardial effusion. MMode/2D Measurements & Calculations RVDd: 3.7 cm LVIDd: 6.2 cm FS: 13.8 % Ao root diam: 3.1 cm IVSd: 1.0 cm LVIDs: 5.3 cm EDV(Teich): 192.7 ml Ao root area: 7.3 cm2 LVPWd: 1.1 cm ESV(Teich): 137.1 ml LA dimension: 5.2 cm EF(Teich): 28.8 % Doppler Measurements & Calculations MV E max lenin: MV P1/2t max lenin: Ao V2 max: LV V1 max P.6 cm/sec 103.7 cm/sec 123.4 cm/sec 5.0 mmHg MV A max lenin: MV P1/2t: 55.7 msec Ao max P.1 mmHgLV V1 max: 128.3 cm/sec MVA(P1/2t): 3.9 cm2 111.9 cm/sec MV E/A: 0.62 MV dec slope: 545.5 cm/sec2 MV dec time: 0.23 sec PA V2 max: TR max lenin: MV P1/2t-pr_phl: 134.4 cm/sec 449.4 cm/sec 55.7 msec PA max P.2 mmHgTR max P.8 mmHg Left Ventricle The left ventricle is moderately dilated. There is normal left ventricular wall thickness. LV EF is 25%. Left ventricular systolic function is severely reduced. Doppler measurements suggest impaired left ventricular relaxation, which is associated with grade I/IV or mild diastolic dysfunction. There is severe global hypokinesis of the left ventricle. Flattened septum is consistent with RV pressure/volume overload. There is no thrombus. Cannot assess ASD,VSD ,or PFO. Right Ventricle The right ventricle is grossly normal size. Atria The right atrium is mildly dilated. The left atrium is severely dilated. Mitral Valve There is mild mitral annular calcification. There is no evidence of mitral valve prolapse. There is no vegetation seen on the mitral valve. There is no mitral valve stenosis. There is a mild to moderate amount of mitral regurgitation. Aortic Valve There is no aortic valvular vegetation. There is no LVOT obstruction. There is aortic sclerosis without aortic stenosis. No aortic regurgitation is present. Tricuspid Valve There is no tricuspid stenosis. There is a mild to moderate amount of tricuspid regurgitation. There is servere pulmonary hypertension by echo. RVSP is 96 to 100 mm of Hg , with RA mean of 15 to 20. Pulmonic Valve There is no pulmonic valvular stenosis. There is a trace amount of pulmonic regurgitation. Great Vessels The aortic root is normal size. The inferior vena cava was not well visualized. Unable to see respiratory variation of the IVC. Effusions There is no pericardial effusion. : KANE BORGES Lakshmi
--- NOTE | 2019-05-14 12:15 | PDOC PROGRESS REPORT ---
Subjective Progress Note for:: 05/14/19 Subjective:: JUJU ANDRADE is a 58 year old male with a past medical history of hypertension, CAD, CHF, CKD, hepatic congestion, COPD, Depression, and remote amphetamine abuse who presented to the emergency department today with a complaint of worsening abdominal distention x1 week, worsening bilateral leg pain x1 week, and shortness of breath with orthopnea that has gradually worsened over the last several weeks. Upon EMS arrival, the patient was found to be cyanotic with an room air saturation in the 80s. He was provided IV Solu-Medrol and placed on supplemental oxygen with some improvement. Further evaluation in the emergency department revealed hypertension (197/105), tachypnea (RR 32), hypoxia on room air, unremarkable CBC, INR 1.35, normal VBG, and a chemistry showing creatinine of 1.61 (at baseline), elevated lactic acid of 2.9, proBNP of 8900 and an indeterminate troponin of 0.039. Patient does deny chest pain. EKG shows sinus rhythm with LVH, chest x-ray suggestive of pulmonary vascular congestion. He is referred to the hospitalist service for admission and management of the above-stated complaints and findings. 05/14/2019. No acute events overnight. Patient still complaining shortness of breath and orthopnea, and dependent on supplemental O2, denies any chest pain, nausea, vomiting, diarrhea, constipation or any urinary symptoms. Reason For Visit: HEART FAILURE Physical Exam Vital Signs: Temp Pulse Resp BP Pulse Ox 97.7 F 87 15 123/61 95 05/14/19 11:10 05/14/19 11:10 05/14/19 11:10 05/14/19 11:10 05/14/19 11:10 Intake & Output 05/13/19 05/14/19 05/15/19 06:59 06:59 06:59 Intake Total 1310 870 50 Output Total 1900 1050 Balance -590 -180 50 Weight 114.3 kg 116.7 kg General appearance: PRESENT: mild distress Head exam: PRESENT: atraumatic, normocephalic Respiratory exam: PRESENT: crackles, prolonged expiratory phas. ABSENT: rales, rhonchi, wheezes Cardiovascular exam: PRESENT: RRR. ABSENT: diastolic murmur, rubs, systolic murmur GI/Abdominal exam: PRESENT: normal bowel sounds, soft. ABSENT: distended, guarding, mass, organolmegaly, rebound, tenderness Neurological exam: PRESENT: alert, awake, oriented to person, oriented to place, oriented to time, oriented to situation, CN II-XII grossly intact. ABSENT: motor sensory deficit Skin exam: PRESENT: other - Lateral lower extremity below the knee stasis dermatitis, erythema and scattered salmon-colored plaques Results Laboratory Results: 05/14/19 04:26 05/14/19 04:26 05/14/19 05/14/19 04:26 04:26 WBC 16.0 H D RBC 4.65 Hgb 11.6 L Hct 36.6 L MCV 79 L MCH 25.1 L MCHC 31.8 L RDW 22.6 H Plt Count 238 Seg Neutrophils % Not Reportable Sodium 136.2 L Potassium 4.8 D Chloride 102 Carbon Dioxide 22 Anion Gap 12 BUN 43 H Creatinine 2.36 H Est GFR ( Amer) 34 L Glucose 128 H Calcium 8.7 05/12/19 12:00 Blood Blood Culture (PCR) - Final 05/12/19 05/12/19 05/13/19 12:00 18:31 00:16 CK-MB (CK-2) Troponin I 0.039 0.041 0.039 NT-Pro-B Natriuret Pep 8970 H 05/13/19 05/14/19 09:35 04:26 CK-MB (CK-2) 4.88 H Troponin I 0.047 NT-Pro-B Natriuret Pep 53269 H Impressions: Chest X-Ray 05/14/19 00:00 IMPRESSION: No acute cardiopulmonary process. Assessment and Plan - Diagnosis (1) Acute exacerbation of congestive heart failure Qualifiers: Heart failure type: combined systolic and diastolic Qualified Code(s): I50.43 - Acute on chronic combined systolic (congestive) and diastolic (congestive) heart failure Is this a current diagnosis for this admission?: Yes Plan: Acute exacerbation of combined systolic and systolic heart failure NYHA stage III. 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 10/12/2019 2D echo LVEF 25%. Grade 1/4 mild diastolic dysfunction. RSVP 96 200 mmHg. proBNP is 12,700 up from 8970 from admission. Continue strict in and out, fluid restriction, IV diuretics, JOSE D, beta-blockers, daily weight. Will consult cardiology for further recommendation. (2) Acute respiratory failure with hypoxia Is this a current diagnosis for this admission?: Yes Plan: Multifactorial. Due to acute CHF exacerbation complicated by underlying severe pulmonary hypertension and history of COPD. Continue treating underlying acute CHF exacerbation. Continue duo nebs, BiPAP, flutter valve, incentive spirometry, pulmonary toileting, IV steroids. (3) Cellulitis, leg Qualifiers: Laterality: unspecified laterality Qualified Code(s): L03.119 - Cellulitis of unspecified part of limb Is this a current diagnosis for this admission?: Yes Plan: Bilateral lower extremity cellulitis complicated by underlying severe stasis dermatitis and peripheral vascular disease. Arterial Doppler positive for moderate hemodynamically significant lesion in the bilateral lower extremities on duplex imaging, focal stenosis identified. Significant arterial obstructive disease noted in the popliteal on the right infrageniculate vessel on the left. Wound culture growing gram-positive cocci in clusters and Acinetobacter Baumannii sensitive to beta lactams, carboplatin, and quinolones. Guidelines review recommends broad-spectrum IV antibiotics either beta lactams or carbapenems. For Acinetobacter Baumannii will start on IV cefepime every 8 hours. For gram-positive cocci in clusters we will start empirically on IV clindamycin and switch to appropriate antibiotics once sensitivities available. Continue wound care. Day 3 antibiotics. Day 1 IV cefepime. Day 1 IV clindamycin. Received 3 days of p.o. Keflex. (4) Acute on chronic renal failure Qualifiers: Chronic kidney disease stage: stage 3 (moderate) Is this a current diagnosis for this admission?: Yes Plan: Prerenal. Worsening renal function. Nonoliguric. History of CKD. Baseline creatinine 2-3. Monitor volume status and electrolytes, replace as needed. Avoid nephrotoxic meds. We will consult nephrology. (5) COPD (chronic obstructive pulmonary disease) Qualifiers: COPD type: COPD with acute exacerbation Qualified Code(s): J44.1 - Chronic obstructive pulmonary disease with (acute) exacerbation Is this a current diagnosis for this admission?: Yes Plan: Complicated by underlying acute CHF at severe pulmonary hypertension. Plan as per 1. Patient may benefit from pulmonary rehab. Will consult discharge planning. (6) Peripheral vascular disease Is this a current diagnosis for this admission?: Yes Plan: Severe bilateral lower extremity stasis dermatitis, cellulitis complicated by PVD. Arterial Doppler positive for moderate hemodynamically significant lesion in the bilateral lower extremities on duplex imaging, focal stenosis identified. Significant arterial obstructive disease noted in the popliteal on the right infrageniculate vessel on the left. We will consult vascular surgeon for possible intervention. (7) Pulmonary hypertension Is this a current diagnosis for this admission?: Yes Plan: Severe pulmonary hypertension. RSVP 100 mmHg. Plan as per above. Will consult pulmonology. Outpatient pulmonology follow-up. - Plan Summary Summary: 05/13/2019 Temp 98 6 pulse 82 blood pressure 151/73 O2 sat 94% on 5 L nasal cannula Patient has been on 5 L of oxygen since he was admitted. Patient states that while in the emergency room he was on BiPAP and he felt much better and is asking for BiPAP again. I agree he may feel better so I have ordered BiPAP BUN is up slightly from 28-31, creatinine is stable 1.7 Hemoglobin A1c is 6.0 lactic acid is down to 2.3 from 3.7 Troponins are basically stable doubly elevated due to his respiratory drive Chest x-ray shows cardiomegaly but no acute disease We will repeat BNP in the morning. Patient currently on Lasix 20 mg IV every 6 hours Entresto every 12 hours solu Medrol 40 mg every 8 hours Ancef every 6 hours Patient is also on his Xarelto 2.5 mg every 12 hours
[2019-05-14] MEDS: CEFEPIME 1 GM/D5W RTU 1 GM/50 ML RTUPB IV SCH ×2 (13:09→21:46)
[2019-05-14] MEDS: FUROSEMIDE INJ/PF 40 MG/4 ML SDV IV SCH ×2 (13:09→21:49)
[2019-05-14] MEDS: METHYLPREDNISOLONE INJ 125 MG/2 ML SDV IV SCH ×2 (13:09→21:48)
[2019-05-14] MEDS ORDERED: CLINDAMYCIN HCL 150 MG CAPSULE PO SCH (14:00)
[2019-05-14] MEDS: MINERAL OIL/PETROLATUM,WHITE CREAM 114 GM TP SCH (14:08)
[2019-05-14] MEDS: CLINDAMYCIN 300 MG/D5W RTU 300 MG/50 ML RTUPB IV SCH ×2 (14:09→21:45)
[2019-05-14] MEDS: QUETIAPINE FUMARATE 300 MG PO SCH (21:50)
[2019-05-15] MEDS: MORPHINE SULFATE 10 MG/ML INJ IV PRN ×5 (01:37→22:00)
[2019-05-15 05:38] LABS: HEMATOCRIT 37.6 % (37.9-51.0); HEMOGLOBIN 12.3 g/dL (13.5-17.0); MEAN CORPUSCULAR HEMOGLOBIN 25.8 pg (27.0-33.4); MEAN CORPUSCULAR HGB CONC 32.6 g/dL (32.0-36.0); MEAN CORPUSCULAR VOLUME 79 fl (80-97); PLATELET COUNT 228 10^3/uL (150-450); RED BLOOD COUNT 4.76 10^6/uL (4.35-5.55); RED CELL DISTRIBUTION WIDTH 23.2 % (11.5-14.0); WHITE BLOOD COUNT 11.3 10^3/uL (4.0-10.5)
[2019-05-15 05:56] LABS: ALBUMIN 3.7 g/dL (3.5-5.0); ALKALINE PHOSPHATASE 151 U/L (38-126); ANION GAP 12 (5-19); ASPARTATE AMINO TRANSFERASE 20 U/L (17-59); BILIRUBIN,DIRECT 0.9 mg/dL (0.0-0.4); BILIRUBIN,TOTAL 1.1 mg/dL (0.2-1.3); BLOOD UREA NITROGEN 56 mg/dL (7-20); CALCIUM 8.9 mg/dL (8.4-10.2); CARBON DIOXIDE 22 mmol/L (22-30); CHLORIDE 102 mmol/L (98-107); GLUCOSE 125 mg/dL (75-110); POTASSIUM 5.1 mmol/L (3.6-5.0)
[2019-05-15] MEDS: PANTOPRAZOLE SODIUM 40 MG TABLET.DR PO SCH (06:19)
[2019-05-15] MEDS: METHYLPREDNISOLONE INJ 125 MG/2 ML SDV IV SCH ×3 (06:19→22:05)
[2019-05-15] MEDS: FUROSEMIDE INJ/PF 40 MG/4 ML SDV IV SCH ×3 (06:20→22:16)
[2019-05-15] MEDS: CLINDAMYCIN 300 MG/D5W RTU 300 MG/50 ML RTUPB IV SCH ×2 (06:22→13:42)
[2019-05-15] MEDS ORDERED: SODIUM POLYSTYRENE SULFONATE 15 GM/60 ML PO ONE (08:30)
[2019-05-15] MEDS: IPRATROPIUM/ALBUTEROL 0.5-2.5 MG/3 ML AMPUL NEB SCH ×3 (08:43→19:49)
[2019-05-15] MEDS: CEFEPIME 1 GM/D5W RTU 1 GM/50 ML RTUPB IV SCH ×2 (09:03→22:17)
[2019-05-15] MEDS: VITAMIN B COMPLEX TABLET PO SCH (09:03)
[2019-05-15] MEDS: ASPIRIN 81 MG TABLET, ENT COATED PO SCH (09:04)
[2019-05-15] MEDS: MULTIVITAMIN TABLET PO SCH (09:04)
[2019-05-15] MEDS: PAROXETINE HCL 20 MG TABLET PO SCH ×2 (09:04→09:05)
[2019-05-15] MEDS: THIAMINE HCL 100 MG TABLET PO SCH (09:04)
[2019-05-15] MEDS: SACUBITRIL/VALSARTAN 24 MG/26 MG TABLET PO SCH ×2 (09:05→22:05)
[2019-05-15] MEDS: FLUTICASONE/UMECLIDIN/VILANTER 100-62.5-25 MCG/DOSE IH SCH (09:05)
[2019-05-15] MEDS: QUETIAPINE FUMARATE 150 MG PO SCH (09:06)
[2019-05-15] MEDS: RIVAROXABAN 2.5 MG TABLET PO SCH ×2 (09:06→22:11)
[2019-05-15] MEDS: MINERAL OIL/PETROLATUM,WHITE CREAM 114 GM TP SCH (09:08)
[2019-05-15] MEDS: ACETAMINOPHEN 325 MG TABLET PO PRN (09:08)
[2019-05-15] MEDS: HYDRALAZINE HCL 25 MG TABLET PO SCH ×3 (09:14→22:04)
--- NOTE | 2019-05-15 11:14 | PDOC PROGRESS REPORT ---
Subjective Progress Note for:: 05/15/19 Subjective:: JUJU ANDRADE is a 58 year old male with a past medical history of hypertension, CAD, CHF, CKD, hepatic congestion, COPD, Depression, and remote amphetamine abuse who presented to the emergency department today with a complaint of worsening abdominal distention x1 week, worsening bilateral leg pain x1 week, and shortness of breath with orthopnea that has gradually worsened over the last several weeks. Upon EMS arrival, the patient was found to be cyanotic with an room air saturation in the 80s. He was provided IV Solu-Medrol and placed on supplemental oxygen with some improvement. Further evaluation in the emergency department revealed hypertension (197/105), tachypnea (RR 32), hypoxia on room air, unremarkable CBC, INR 1.35, normal VBG, and a chemistry showing creatinine of 1.61 (at baseline), elevated lactic acid of 2.9, proBNP of 8900 and an indeterminate troponin of 0.039. Patient does deny chest pain. EKG shows sinus rhythm with LVH, chest x-ray suggestive of pulmonary vascular congestion. He is referred to the hospitalist service for admission and management of the above-stated complaints and findings. 05/14/2019. No acute events overnight. Patient still complaining shortness of breath and orthopnea, and dependent on supplemental O2, denies any chest pain, nausea, vomiting, diarrhea, constipation or any urinary symptoms. 05/15/2019. No acute events overnight. Patient resting on supplemental oxygen, noted to be mild respiratory distress, cannot talk in full sentences, on supplemental oxygen, still complaining of bilateral lower extremity pain, patient stated that he used to live in [place] for 10 years and has had several heart surgery for valve replacements, and has been living in [facility] for the last 2 years, he has 1 friend here that usually helps around the house, he has no family except for her daughter with whom he does not have any contact with the movement. He is denying any chest pain, fever, chills, nausea, vomiting. Patient was found to have very low ejection fraction and cardiology has been consulted. Patient also noted to have severe portal hypertension and pulmonology can consult, for his lower extremity PVD vascular surgeon has been consulted. Reason For Visit: HEART FAILURE Physical Exam Vital Signs: Temp Pulse Resp BP Pulse Ox 97.7 F 51 L 19 148/64 H 94 05/15/19 08:53 05/15/19 08:53 05/15/19 08:53 05/15/19 08:53 05/15/19 08:53 Intake & Output 05/14/19 05/15/19 05/16/19 06:59 06:59 06:59 Intake Total 870 1256 100 Output Total 1050 0 Balance -180 -794 100 Weight 116.7 kg 115.9 kg General appearance: PRESENT: cooperative, disheveled, mild distress, well- nourished Head exam: PRESENT: atraumatic, normocephalic Respiratory exam: PRESENT: accessory muscle use, decreased breath sounds, symmetrical, wheezes. ABSENT: rales, rhonchi Cardiovascular exam: PRESENT: RRR. ABSENT: diastolic murmur, rubs, systolic murmur GI/Abdominal exam: PRESENT: normal bowel sounds, soft. ABSENT: distended, guarding, mass, organolmegaly, rebound, tenderness Extremities exam: PRESENT: other - Bilateral lower extremity below the knee erythema, hardening of skin, scaly sporadic lesions, hard to palpate any pulses. Neurological exam: PRESENT: alert, awake, oriented to person, oriented to place, oriented to time, oriented to situation, CN II-XII grossly intact. ABSENT: motor sensory deficit Results Laboratory Results: 05/15/19 05:23 05/15/19 05:23 05/15/19 05/15/19 05:23 05:23 WBC 11.3 H RBC 4.76 Hgb 12.3 L Hct 37.6 L MCV 79 L MCH 25.8 L MCHC 32.6 RDW 23.2 H Plt Count 228 Sodium 136.2 L Potassium 5.1 H Chloride 102 Carbon Dioxide 22 Anion Gap 12 BUN 56 H Creatinine 2.56 H Est GFR ( Amer) 31 L Glucose 125 H Calcium 8.9 Magnesium 2.6 H Total Bilirubin 1.1 AST 20 Alkaline Phosphatase 151 H Total Protein 7.0 Albumin 3.7 05/12/19 12:00 Blood Blood Culture (PCR) - Final 05/12/19 05/12/19 05/13/19 12:00 18:31 00:16 CK-MB (CK-2) Troponin I 0.039 0.041 0.039 NT-Pro-B Natriuret Pep 8970 H 05/13/19 05/14/19 09:35 04:26 CK-MB (CK-2) 4.88 H Troponin I 0.047 NT-Pro-B Natriuret Pep 38555 H Impressions: Chest X-Ray 05/14/19 00:00 IMPRESSION: No acute cardiopulmonary process. Assessment and Plan - Diagnosis (1) Acute exacerbation of congestive heart failure Qualifiers: Heart failure type: combined systolic and diastolic Qualified Code(s): I50.43 - Acute on chronic combined systolic (congestive) and diastolic (congestive) heart failure Is this a current diagnosis for this admission?: Yes Plan: Acute exacerbation of combined systolic and systolic heart failure NYHA stage III. 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 10/12/2019 2D echo LVEF 25%. Grade 1/4 mild diastolic dysfunction. RSVP 96 200 mmHg. proBNP is 12,700 up from 8970 from admission. Continue strict in and out, fluid restriction, IV diuretics, JOSE D, beta-blockers, daily weight. Cardiology consulted. Pending recommendations. (2) Acute respiratory failure with hypoxia Is this a current diagnosis for this admission?: Yes Plan: Multifactorial. Due to acute CHF exacerbation complicated by underlying severe pulmonary hypertension and history of COPD. Continue treating underlying acute CHF exacerbation. Continue duo nebs, BiPAP, flutter valve, incentive spirometry, pulmonary toileting, IV steroids. (3) Cellulitis, leg Qualifiers: Laterality: unspecified laterality Qualified Code(s): L03.119 - Cellulitis of unspecified part of limb Is this a current diagnosis for this admission?: Yes Plan: Bilateral lower extremity cellulitis complicated by underlying severe stasis dermatitis and peripheral vascular disease and likely some dermatologic disorder. Arterial Doppler positive for moderate hemodynamically significant lesion in the bilateral lower extremities on duplex imaging, focal stenosis identified. Significant arterial obstructive disease noted in the popliteal on the right infrageniculate vessel on the left. Wound culture growing gram-positive cocci in clusters and Acinetobacter Baumannii sensitive to beta lactams, carboplatin, and quinolones. Guidelines review recommends broad-spectrum IV antibiotics either beta lactams or carbapenems. For Acinetobacter Baumannii will start on IV cefepime every 8 hours. For gram-positive cocci in clusters we will start empirically on IV clindamycin and switch to appropriate antibiotics once sensitivities available. Continue wound care. Day 4 antibiotics. Day 2 IV cefepime. Day 2 IV clindamycin. Received 3 days of p.o. Keflex. (4) Acute on chronic renal failure Qualifiers: Chronic kidney disease stage: stage 3 (moderate) Is this a current diagnosis for this admission?: Yes Plan: Prerenal. Worsening renal function. Nonoliguric. History of CKD. Baseline creatinine 2-3. Monitor volume status and electrolytes, replace as needed. Avoid nephrotoxic me ds. We will consult nephrology. (5) COPD (chronic obstructive pulmonary disease) Qualifiers: COPD type: COPD with acute exacerbation Qualified Code(s): J44.1 - Chronic obstructive pulmonary disease with (acute) exacerbation Is this a current diagnosis for this admission?: Yes Plan: Complicated by underlying acute CHF at severe pulmonary hypertension. Plan as per 1. Patient may benefit from pulmonary rehab. Will consult discharge planning. (6) Peripheral vascular disease Is this a current diagnosis for this admission?: Yes Plan: Severe bilateral lower extremity stasis dermatitis, cellulitis complicated by PVD. Arterial Doppler positive for moderate hemodynamically significant lesion in the bilateral lower extremities on duplex imaging, focal stenosis identified. Significant arterial obstructive disease noted in the popliteal on the right infrageniculate vessel on the left. Vascular surgeon consulted. Recommendations pending. (7) Pulmonary hypertension Is this a current diagnosis for this admission?: Yes Plan: Severe pulmonary hypertension. RSVP 100 mmHg. Pulmonology consulted. Recommendations pending. Plan as per above. - Plan Summary Summary: 05/13/2019 Temp 98 6 pulse 82 blood pressure 151/73 O2 sat 94% on 5 L nasal cannula Patient has been on 5 L of oxygen since he was admitted. Patient states that while in the emergency room he was on BiPAP and he felt much better and is asking for BiPAP again. I agree he may feel better so I have ordered BiPAP BUN is up slightly from 28-31, creatinine is stable 1.7 Hemoglobin A1c is 6.0 lactic acid is down to 2.3 from 3.7 Troponins are basically stable doubly elevated due to his respiratory drive Chest x-ray shows cardiomegaly but no acute disease We will repeat BNP in the morning. Patient currently on Lasix 20 mg IV every 6 hours Entresto every 12 hours solu Medrol 40 mg every 8 hours Ancef every 6 hours Patient is also on his Xarelto 2.5 mg every 12 hours
[2019-05-15] MEDS ORDERED: LIDOCAINE 1% INJ-PF (10 MG/ML) 30 ML SDV ONE (14:33)
--- NOTE | 2019-05-15 15:38 | Operative Report ---
Operative Report DATE OF SURGERY: 05/15/19 PREOPERATIVE DIAGNOSIS: Exacerbation of congestive heart failure POSTOPERATIVE DIAGNOSIS: Same OPERATION: 1. Focused ultrasound of the right neck. 2. Ultrasound directed insertion of triple-lumen central venous access catheter. SURGEON: CAROLE LOGAN ANESTHESIA: Local TISSUE REMOVED OR ALTERED: None COMPLICATIONS: None ESTIMATED BLOOD LOSS: Scant INTRAOPERATIVE FINDINGS: See below PROCEDURE: The patient was identified in room 334. He was on BiPAP. He has significant jugular venous distention. His left in the semi-upright position. Right neck was prepped and draped in sterile fashion. Surgical plan and surgical timeout were conducted. The variable frequency linear transducer was used to scan the right neck. Findings were significant for a patent, compressible large diameter right internal jugular vein The adjacent skin was prepped with Betadine anesthetized with 1% lidocaine. A fiona was made the skin with 11 blade, and the thin gauge needle was threaded into the right internal jugular vein. A conventional 0.030 guidewire was inserted, needle removed, dilator threaded over the wire, and then a triple- lumen central venous access catheter was threaded into position. There was excellent blood flow in all 3 lm. Catheter was advanced to the skin. Catheter was lined with saline and secured to the skin with a Biopatch and 2-0 silk suture and OpSite applied. Patient tolerated the procedure well. Orders placed into the computer. Portable upright chest x-ray pending at time of dictation.
--- NOTE | 2019-05-15 16:20 | RADIOLOGY REPORT (SQ) ---
EXAM DESCRIPTION: CHEST SINGLE VIEW COMPLETED DATE/TIME: 05/15/2019 3:48 pm REASON FOR STUDY: Status post right IJ catheter placement COMPARISON: Chest films 05/14/2019, 05/12/2019, 04/30/2019 CT chest 05/27/2018 EXAM PARAMETERS: NUMBER OF VIEWS: One view. TECHNIQUE: Single frontal radiographic view of the chest acquired. RADIATION DOSE: NA LIMITATIONS: None. FINDINGS: LUNGS AND PLEURA: No acute infiltrates. Patchy chronic scarring in the right upper lobe a nd both lung bases. No pleural effusion. No pneumothorax. MEDIASTINUM AND HILAR STRUCTURES: No masses. Contour normal. HEART AND VASCULAR STRUCTURES: No cardiomegaly. Old CABG. BONES: No acute findings. HARDWARE: Right jugular central line tip SVC. OTHER: No other significant finding. IMPRESSION: Right jugular central line tip SVC. No Pneumothorax TECHNICAL DOCUMENTATION: JOB ID: [id number] 2010 [employer]- All Rights Reserved Reading location - IP/workstation name: [email or web address]
[2019-05-15] MEDS: DOBUTAMINE HCL/D5W 500 MG/250 ML RTUINJ IV PRN (16:23)
[2019-05-15] MEDS: HYDRALAZINE HCL INJ/PF 20 MG/1 ML SDV IV PRN (17:02)
[2019-05-15] MEDS ORDERED: HYDRALAZINE HCL INJ/PF 20 MG/1 ML SDV IV ONE (17:30)
--- NOTE | 2019-05-15 19:38 | Progress Note ---
Provider Note Provider Note: CARDIOLOGY PROGRESS NOTE by Dr. Radha Lara on 05/15/2019. SUBJECTIVE: The patient continues to be short of breath with orthopnea and PND episodes. He still has leg edema. He denies any chest pain or discomfort. There is no atrial or ventricular arrhythmia seen on the monitor. The patient has a cough productive of clear sputum. In spite of her reasonable diuresis the patient continues to be short of breath. In view of the patient's severe LV dysfunction the pain patient most likely will need inotropic support also the patient has severe pulmonary hypertension. He desaturates if he takes his BiPAP off. PHYSICAL EXAMINATION: The patient is mildly obese but appears to be chronically ill. Selected Entries 05/15/19 05/15/19 10:00 11:08 Temperature 97.3 F Temperature Axillary Source Pulse Rate 79 Respiratory 12 Rate Blood Pressure 135/64 H Blood Pressure 87 Mean BP Location Left Arm BP Position Supine O2 Sat by Pulse 91 L Oximetry Oxygen Delivery Bipap Method Percent of 35 Oxygen HEAD: Head is atraumatic normocephalic. Eyes: Pupils are equal round regular reactive light accommodation extraocular movements are normal there is no congenital pallor there is no scleral icterus. Ears: External auditory canals are clear, there are no lesions of the pinna. Nose: No deviated nasal septum and no inflammation of the nasal mucous membrane. Mouth: Mucous membranes of mouth are moist tongue is moist there is no ulcers there is no bleeding from the gums. Throat: There is no redness of the oropharynx there is no exudates. Skin: There is no petechia or ecchymosis there is no skin lesions or skin rashes. Neck: Neck is supple there is JVD present. Carotids equal there is no bruit there is no lymphadenopathy there is no neck stiffness. There is no goiter trachea central lungs: Lungs show diminished air entry and prolonged expiration. Scattered rhonchi and wheezing present. There is bibasilar rales of CHF. There is no chest wall tenderness. HEART: S1-S2 is heard there is no S3 gallop there is no S4 gallop S1 is of normal intensity. There is no rub. The systolic murmur of MR and TR. There is no prosthetic valve clicks heard. Abdomen: Abdomen is soft, mildly distended, no definite ascites. There is no hepatosplenomegaly. Bowel sounds well heard there is no tender areas of masses. There is no rebound guarding or rigidity. Extremities: Femorals are slightly diminished, there is no bruits. Leg pulses are diminished. There is trace 2- edema, with venous stasis dermatitis. There is no DVT or cellulitis there is no cyanosis or clubbing there is no DVT or cellulitis. There is no calf tenderne ss. CORPORATE PARALEGAL: The patient is awake alert oriented 3 with no focal deficits. But in spite of this he has slow mentation. Psychiatric: The patient judgment and insight are intact and his affect is flat. The patient's 24-hour intake is 1256 mL, and the 24-hour output is 2056 mL. Labs- All tests 24 hr 05/15/19 05/15/19 05:23 05:23 WBC 11.3 H RBC 4.76 Hgb 12.3 L Hct 37.6 L MCV 79 L MCH 25.8 L MCHC 32.6 RDW 23.2 H Plt Count 228 Sodium 136.2 L Potassium 5.1 H Chloride 102 Carbon Dioxide 22 Anion Gap 12 BUN 56 H Creatinine 2.56 H Est GFR ( Amer) 31 L Est GFR (MDRD) Non-Af 26 L Glucose 125 H Calcium 8.9 Magnesium 2.6 H Total Bilirubin 1.1 Direct Bilirubin 0.9 H Neonat Total Bilirubin Not Reportable Neonat Direct Bilirubin Not Reportable Neonat Indirect Bili Not Reportable AST 20 ALT 8 Alkaline Phosphatase 151 H Total Protein 7.0 Albumin 3.7 Chest X-Ray 05/12/19 11:53 IMPRESSION: No acute cardiopulmonary process. Chest X-Ray 05/14/19 00:00 IMPRESSION: No acute cardiopulmonary process. Chest X-Ray 05/15/19 15:34 IMPRESSION: Right jugular central line tip SVC. No Pneumothorax IMPRESSION/RECOMMENDATION: 1. Acute respiratory failure secondary to combination of acute on chronic systolic heart failure, acute renal failure causing volume overload, acute exacerbation of COPD, and severe pulmonary hypertension. Continue BiPAP and oxy gen support. 2. Acute on chronic systolic heart failure. Continue IV Lasix. Will get a triple-lumen catheter placed. This was discussed with the patient is agreeable. Then will start the patient on IV dobutamine and IV nitroglycerin and hydralazine p.o. iron intravenously. 3. Acute exacerbation COPD: Consider antibiotics. Continue respiratory treatments. 4. Hypertension: At present blood pressure reasonable7 5. Severe pulmonary hypertension: The dobutamine the IV nitroglycerin and hydralazine should help. Later we will see the feasibility of starting sildenafil. 6. Acute on chronic renal failure. Avoid nephrotoxic drugs 7. Bipolar disorder 8. Tobacco abuse disorder. 9 coronary artery disease: History of coronary bypass graft surgery: No angina and troponin so far is not elevated. 10. Peripheral vascular disease: This will be addressed later on. 11. History of valvular repair: Details not available. Try to contact [facility] but they say they have not heard of the patient, and have no records on him. Medications reviewed. Medications adjusted and medical new medications added. Medical regimen and management plan discussed with attending physician. Medical decision making is of high complexity 40 minutes spent on this patient, with more than 50% time spent in direct patient care. Will follow.
[2019-05-15] MEDS: NITROGLYCERIN/D5W 50 MG/250 ML RTUINJ IV PRN (20:44)
[2019-05-15] MEDS: HYDRALAZINE HCL INJ/PF 20 MG/1 ML SDV IV SCH (22:03)
[2019-05-15] MEDS: QUETIAPINE FUMARATE 300 MG PO SCH (22:15)
[2019-05-16] MEDS: MORPHINE SULFATE 10 MG/ML INJ IV PRN ×4 (03:28→21:15)
[2019-05-16] MEDS: HYDRALAZINE HCL INJ/PF 20 MG/1 ML SDV IV SCH ×4 (03:33→21:40)
[2019-05-16] MEDS: METHYLPREDNISOLONE INJ 125 MG/2 ML SDV IV SCH ×3 (06:49→21:13)
[2019-05-16] MEDS: FUROSEMIDE INJ/PF 40 MG/4 ML SDV IV SCH ×3 (06:49→21:11)
[2019-05-16] MEDS: HYDRALAZINE HCL 25 MG TABLET PO SCH ×3 (06:51→21:15)
[2019-05-16] MEDS: PANTOPRAZOLE SODIUM 40 MG TABLET.DR PO SCH (06:51)
[2019-05-16] MEDS: DOBUTAMINE HCL/D5W 500 MG/250 ML RTUINJ IV PRN ×2 (07:25→21:16)
[2019-05-16] MEDS: IPRATROPIUM/ALBUTEROL 0.5-2.5 MG/3 ML AMPUL NEB SCH ×3 (08:03→19:37)
[2019-05-16] MEDS: ASPIRIN 81 MG TABLET, ENT COATED PO SCH (09:23)
[2019-05-16] MEDS: THIAMINE HCL 100 MG TABLET PO SCH (09:23)
[2019-05-16] MEDS: VITAMIN B COMPLEX TABLET PO SCH (09:23)
[2019-05-16] MEDS: CEFEPIME 1 GM/D5W RTU 1 GM/50 ML RTUPB IV SCH ×2 (09:23→21:16)
[2019-05-16] MEDS: MULTIVITAMIN TABLET PO SCH (09:23)
[2019-05-16] MEDS: RIVAROXABAN 2.5 MG TABLET PO SCH ×2 (09:24→21:18)
[2019-05-16] MEDS: SACUBITRIL/VALSARTAN 24 MG/26 MG TABLET PO SCH ×2 (09:24→21:15)
[2019-05-16] MEDS: QUETIAPINE FUMARATE 150 MG PO SCH (09:24)
[2019-05-16] MEDS: MINERAL OIL/PETROLATUM,WHITE CREAM 114 GM TP SCH (09:25)
[2019-05-16] MEDS: FLUTICASONE/UMECLIDIN/VILANTER 100-62.5-25 MCG/DOSE IH SCH (09:25)
[2019-05-16] MEDS: PAROXETINE HCL 20 MG TABLET PO SCH ×2 (09:25)
[2019-05-16] MEDS: NITROGLYCERIN/D5W 50 MG/250 ML RTUINJ IV PRN ×2 (10:54→23:18)
[2019-05-16 11:24] LABS: HEMATOCRIT 35.9 % (37.9-51.0); HEMOGLOBIN 11.5 g/dL (13.5-17.0); MEAN CORPUSCULAR HEMOGLOBIN 25.1 pg (27.0-33.4); MEAN CORPUSCULAR VOLUME 78 fl (80-97); PLATELET COUNT 235 10^3/uL (150-450); RED BLOOD COUNT 4.58 10^6/uL (4.35-5.55); RED CELL DISTRIBUTION WIDTH 23.1 % (11.5-14.0); WHITE BLOOD COUNT 12.4 10^3/uL (4.0-10.5)
[2019-05-16 11:35] LABS: ANION GAP 11 (5-19); BLOOD UREA NITROGEN 69 mg/dL (7-20); CALCIUM 8.4 mg/dL (8.4-10.2); CARBON DIOXIDE 24 mmol/L (22-30); CHLORIDE 100 mmol/L (98-107); GLUCOSE 132 mg/dL (75-110); POTASSIUM 4.5 mmol/L (3.6-5.0)
[2019-05-16 11:53] LABS: ABSOLUTE LYMPHOCYTES# (MANUAL) 0.4 10^3/uL (0.5-4.7); ABSOLUTE MONOCYTES # (MANUAL) 0.4 10^3/uL (0.1-1.4); BASOPHILS % (MANUAL) 0 % (0-2); EOSINOPHILS % (MANUAL) 0 % (0-6); LYMPHOCYTES % (MANUAL) 3 % (13-45); MONOCYTES % (MANUAL) 3 % (3-13); NUCLEATED RED BLOOD CELLS 1 /100 WBC (0); SEGMENTED NEUTROPHILS % (MAN) 94 % (42-78); TOTAL CELLS COUNTED 100
[2019-05-16 11:54] LABS: ANISOCYTOSIS 3+; PLATELET COMMENT ADEQUATE
[2019-05-16 11:56] LABS: OVALOCYTES SLIGHT; POIKILOCYTOSIS 1+; POLYCHROMASIA SLIGHT; TARGET CELLS 1+
--- NOTE | 2019-05-16 12:47 | PDOC PROGRESS REPORT ---
Subjective Progress Note for:: 05/16/19 Subjective:: JUJU ANDRADE is a 58 year old male with a past medical history of hypertension, CAD, CHF, CKD, hepatic congestion, COPD, Depression, and remote amphetamine abuse who presented to the emergency department today with a complaint of worsening abdominal distention x1 week, worsening bilateral leg pain x1 week, and shortness of breath with orthopnea that has gradually worsened over the last several weeks. Upon EMS arrival, the patient was found to be cyanotic with an room air saturation in the 80s. He was provided IV Solu-Medrol and placed on supplemental oxygen with some improvement. Further evaluation in the emergency department revealed hypertension (197/105), tachypnea (RR 32), hypoxia on room air, unremarkable CBC, INR 1.35, normal VBG, and a chemistry showing creatinine of 1.61 (at baseline), elevated lactic acid of 2.9, proBNP of 8900 and an indeterminate troponin of 0.039. Patient does deny chest pain. EKG shows sinus rhythm with LVH, chest x-ray suggestive of pulmonary vascular congestion. He is referred to the hospitalist service for admission and management of the above-stated complaints and findings. 05/14/2019. No acute events overnight. Patient still complaining shortness of breath and orthopnea, and dependent on supplemental O2, denies any chest pain, nausea, vomiting, diarrhea, constipation or any urinary symptoms. 05/15/2019. No acute events overnight. Patient resting on supplemental oxygen, noted to be mild respiratory distress, cannot talk in full sentences, on supplemental oxygen, still complaining of bilateral lower extremity pain, patient stated that he used to live in [place] for 10 years and has had several heart surgery for valve replacements, and has been living in [facility] for the last 2 years, he has 1 friend here that usually helps around the house, he has no family except for her daughter with whom he does not have any contact with the movement. He is denying any chest pain, fever, chills, nausea, vomiting. Patient was found to have very low ejection fraction and cardiology has been c onsulted. Patient also noted to have severe portal hypertension and pulmonology can consult, for his lower extremity PVD vascular surgeon has been consulted. 05/16/2019. Patient continues to be short of breath and BiPAP dependent, complaining of PND, denies any chest discomfort, reports mild improvement of bilateral lower extremity cellulitis, denies any chest pain, nausea, vomiting. Reason For Visit: HEART FAILURE Physical Exam Vital Signs: Temp Pulse Resp BP Pulse Ox 98.5 F 96 24 H 154/121 H 97 05/16/19 07:56 05/16/19 12:30 05/16/19 11:57 05/16/19 12:30 05/16/19 11:57 Intake & Output 05/15/19 05/16/19 05/17/19 06:59 06:59 06:59 Intake Total 1256 2694 173 Output Total 2050 2225 Balance -794 469 173 Weight 115.9 kg 110.7 kg General appearance: PRESENT: disheveled, mild distress, well-developed, well- nourished Head exam: PRESENT: atraumatic, normocephalic Respiratory exam: PRESENT: clear to auscultation torsten, tachypnea. ABSENT: rales, rhonchi, wheezes Cardiovascular exam: PRESENT: RRR. ABSENT: diastolic murmur, rubs, systolic murmur Neurological exam: PRESENT: alert, awake, oriented to person, oriented to place, CN II-XII grossly intact. ABSENT: motor sensory deficit Skin exam: PRESENT: other - Bilateral lower extremity erythema and scattered plaques. Results Laboratory Results: 05/16/19 10:47 05/16/19 10:47 05/16/19 05/16/19 10:47 10:47 WBC 12.4 H RBC 4.58 Hgb 11.5 L Hct 35.9 L MCV 78 L MCH 25.1 L MCHC 32.0 RDW 23.1 H Plt Count 235 Seg Neutrophils % Not Reportable Sodium 134.5 L Potassium 4.5 Chloride 100 Carbon Dioxide 24 Anion Gap 11 BUN 69 H Creatinine 2.75 H Est GFR ( Amer) 29 L Glucose 132 H Calcium 8.4 05/12/19 12:00 Blood Blood Culture (PCR) - Final 05/12/19 12:00 Blood Blood Culture - Final Corynebacterium Species 05/12/19 13:30 Foot - Right Gram Stain - Final 05/12/19 13:30 Foot - Right Wound Culture - Final Staphylococcus Aureus Acinetobacter Baumannii/Haem Pseudom [facility] 05/12/19 05/12/19 05/13/19 12:00 18:31 00:16 CK-MB (CK-2) Troponin I 0.039 0.041 0.039 NT-Pro-B Natriuret Pep 8970 H 05/13/19 05/14/19 09:35 04:26 CK-MB (CK-2) 4.88 H Troponin I 0.047 NT-Pro-B Natriuret Pep 49448 H Impressions: Chest X-Ray 05/15/19 15:34 IMPRESSION: Right jugular central line tip SVC. No Pneumothorax Assessment and Plan - Diagnosis (1) Acute respiratory failure with hypoxia Is this a current diagnosis for this admission?: Yes Plan: Improvement of wheezing on physical examination otherwise unchanged. Multifactorial. Secondary to acute on chronic combined systolic and diastolic heart failure, ERNESTINE on CKD, acute COPD exacerbation in the setting of severe pulmonary hypertension. Continue treating underlying acute CHF exacerbation. Continue duo nebs, BiPAP, flutter valve, incentive spirometry, pulmonary toileting, IV steroids. (2) Acute exacerbation of congestive heart failure Qualifiers: Heart failure type: combined systolic and diastolic Qualified Code(s): I50.43 - Acute on chronic combined systolic (congestive) and diastolic (congestive) heart failure Is this a current diagnosis for this admission?: Yes Plan: Acute exacerbation of combined systolic and systolic heart failure NYHA stage III. This likely due to medication noncompliance, patient does not have a valet. 10/12/2019 2D echo LVEF 25%. Grade 1/4 mild diastolic dysfunction. RSVP 96 200 mmHg. proBNP is 12,700 up from 8970 from admission. Continue strict in and out, fluid restriction, IV diuretics, JOSE D, beta-blockers, daily weight. Patient has also been started on dobutamine and IV nitroglycerin intravenously. Cardiology consulted. Recommendations noted. (3) Cellulitis, leg Qualifiers: Laterality: unspecified laterality Qualified Code(s): L03.119 - Cellulitis of unspecified part of limb Is this a current diagnosis for this admission?: Yes Plan: Mild improvement of anterior ankles otherwise unchanged. Bilateral lower extremity cellulitis complicated by underlying severe stasis dermatitis and peripheral vascular disease and likely some dermatologic disorder. Arterial Doppler positive for moderate hemodynamically significant lesion in the bilateral lower extremities on duplex imaging, focal stenosis identified. Significant arterial obstructive disease noted in the popliteal on the right infrageniculate vessel on the left. Wound culture growing gram-positive cocci in clusters and Acinetobacter Baumannii sensitive to beta lactams, carboplatin, and quinolones. Guidelines review recommends broad-spectrum IV antibiotics either beta lactams or carbapenems. For Acinetobacter Baumannii will start on IV cefepime every 8 hours. Gram-positive cocci in clusters in the blood turned out to be Corynebacterium. DC clindamycin. Continue wound care. Day 5 antibiotics. Day 3 IV cefepime. Received 3 days of IV clindamycin. Received 3 days of p.o. Keflex. (4) Acute on chronic renal failure Qualifiers: Chronic kidney disease stage: stage 3 (moderate) Is this a current diagnosis for this admission?: Yes Plan: Prerenal. Creatinine is stable. Nonoliguric. History of CKD. Baseline creatinine 2-3. Monitor volume status and electrolytes, replace as needed. Avoid nephrotoxic meds. We will consult nephrology. (5) COPD (chronic obstructive pulmonary disease) Qualifiers: COPD type: COPD with acute exacerbation Qualified Code(s): J44.1 - Chronic obstructive pulmonary disease with (acute) exacerbation Is this a current diagnosis for this admission?: Yes Plan: Complicated by underlying acute CHF at severe pulmonary hypertension. Plan as per 1. Patient may benefit from pulmonary rehab. Will consult discharge planning. (6) Peripheral vascular disease Is this a current diagnosis for this admission?: Yes Plan: Severe bilateral lower extremity stasis dermatitis, cellulitis complicated by PVD. Arterial Doppler positive for moderate hemodynamically significant lesion in the bilateral lower extremities on duplex imaging, focal stenosis identified. Significant arterial obstructive disease noted in the popliteal on the right infrageniculate vessel on the left. Vascular surgeon consulted. Recommendations pending. (7) Pulmonary hypertension Is this a current diagnosis for this admission?: Yes Plan: Severe pulmonary hypertension. RSVP 100 mmHg. Pulmonology consulted. Recommendations pending. Plan as per above. - Plan Summary Summary: 05/13/2019 Temp 98 6 pulse 82 blood pressure 151/73 O2 sat 94% on 5 L nasal cannula Patient has been on 5 L of oxygen since he was admitted. Patient states that while in the emergency room he was on BiPAP and he felt much better and is asking for BiPAP again. I agree he may feel better so I have ordered BiPAP BUN is up slightly from 28-31, creatinine is stable 1.7 Hemoglobin A1c is 6.0 lactic acid is down to 2.3 from 3.7 Troponins are basically stable doubly elevated due to his respiratory drive Chest x-ray shows cardiomegaly but no acute disease We will repeat BNP in the morning. Patient currently on Lasix 20 mg IV every 6 hours Entresto every 12 hours solu Medrol 40 mg every 8 hours Ancef every 6 hours Patient is also on his Xarelto 2.5 mg every 12 hours
[2019-05-16 13:50] LABS: ALBUMIN 3.4 g/dL (3.5-5.0); ALKALINE PHOSPHATASE 129 U/L (38-126); ASPARTATE AMINO TRANSFERASE 23 U/L (17-59); BILIRUBIN,DIRECT 1.1 mg/dL (0.0-0.4); BILIRUBIN,TOTAL 1.4 mg/dL (0.2-1.3); TOTAL PROTEIN 6.1 g/dL (6.3-8.2)
[2019-05-16] MEDS: LORAZEPAM INJ 2 MG/1 ML VIAL IV PRN (21:15)
[2019-05-16] MEDS: QUETIAPINE FUMARATE 300 MG PO SCH (21:18)
[2019-05-17] MEDS: MORPHINE SULFATE 10 MG/ML INJ IV PRN ×4 (01:45→21:46)
[2019-05-17] MEDS: HYDRALAZINE HCL INJ/PF 20 MG/1 ML SDV IV SCH ×4 (04:11→21:55)
[2019-05-17] MEDS: FUROSEMIDE INJ/PF 40 MG/4 ML SDV IV SCH (05:15)
[2019-05-17] MEDS: METHYLPREDNISOLONE INJ 125 MG/2 ML SDV IV SCH ×3 (05:15→21:44)
[2019-05-17] MEDS: HYDRALAZINE HCL 25 MG TABLET PO SCH ×3 (05:16→23:08)
[2019-05-17] MEDS: PANTOPRAZOLE SODIUM 40 MG TABLET.DR PO SCH (05:16)
[2019-05-17 05:41] LABS: HEMATOCRIT 35.5 % (37.9-51.0); HEMOGLOBIN 11.4 g/dL (13.5-17.0); MEAN CORPUSCULAR HEMOGLOBIN 25.3 pg (27.0-33.4); MEAN CORPUSCULAR HGB CONC 32.3 g/dL (32.0-36.0); MEAN CORPUSCULAR VOLUME 78 fl (80-97); PLATELET COUNT 197 10^3/uL (150-450); RED BLOOD COUNT 4.53 10^6/uL (4.35-5.55); RED CELL DISTRIBUTION WIDTH 22.2 % (11.5-14.0); WHITE BLOOD COUNT 11.4 10^3/uL (4.0-10.5)
[2019-05-17 05:57] LABS: ALBUMIN 3.5 g/dL (3.5-5.0); ALKALINE PHOSPHATASE 118 U/L (38-126); ANION GAP 13 (5-19); ASPARTATE AMINO TRANSFERASE 23 U/L (17-59); BILIRUBIN,DIRECT 1.1 mg/dL (0.0-0.4); BILIRUBIN,TOTAL 1.5 mg/dL (0.2-1.3); BLOOD UREA NITROGEN 79 mg/dL (7-20); CALCIUM 8.7 mg/dL (8.4-10.2); CARBON DIOXIDE 24 mmol/L (22-30); CHLORIDE 100 mmol/L (98-107); GLUCOSE 128 mg/dL (75-110); POTASSIUM 4.6 mmol/L (3.6-5.0); TOTAL PROTEIN 6.4 g/dL (6.3-8.2)
[2019-05-17] MEDS: IPRATROPIUM/ALBUTEROL 0.5-2.5 MG/3 ML AMPUL NEB SCH ×3 (08:27→19:56)
[2019-05-17] MEDS: ASPIRIN 81 MG TABLET, ENT COATED PO SCH (09:19)
[2019-05-17] MEDS: VITAMIN B COMPLEX TABLET PO SCH (09:19)
[2019-05-17] MEDS: RIVAROXABAN 2.5 MG TABLET PO SCH ×2 (09:20→21:58)
[2019-05-17] MEDS: QUETIAPINE FUMARATE 150 MG PO SCH (09:20)
[2019-05-17] MEDS: MULTIVITAMIN TABLET PO SCH (09:20)
[2019-05-17] MEDS: CEFEPIME 1 GM/D5W RTU 1 GM/50 ML RTUPB IV SCH ×2 (09:20→21:46)
[2019-05-17] MEDS: THIAMINE HCL 100 MG TABLET PO SCH (09:20)
[2019-05-17] MEDS: PAROXETINE HCL 20 MG TABLET PO SCH ×2 (09:21→09:22)
[2019-05-17] MEDS: SACUBITRIL/VALSARTAN 24 MG/26 MG TABLET PO SCH ×2 (09:22→21:59)
[2019-05-17] MEDS: FLUTICASONE/UMECLIDIN/VILANTER 100-62.5-25 MCG/DOSE IH SCH (09:23)
[2019-05-17] MEDS: MINERAL OIL/PETROLATUM,WHITE CREAM 114 GM TP SCH (09:23)
[2019-05-17] MEDS: DOBUTAMINE HCL/D5W 500 MG/250 ML RTUINJ IV PRN (11:45)
[2019-05-17 11:53] LABS: ARTERIAL BLOOD H2CO3 1.16 mmol/L (1.05-1.35); ARTERIAL BLOOD HCO3 22.7 mmol/L (20-24); ARTERIAL BLOOD PCO2 38.5 mmHg (35-45); ARTERIAL BLOOD PH 7.39 (7.35-7.45); ARTERIAL BLOOD PO2 60.3 mmHg (80-100); ARTERIAL BLOOD TOTAL CO2 23.9 mmol/L (23-27)
[2019-05-17 11:54] LABS: ARTERIAL BLOOD FIO2 5.5L
[2019-05-17] MEDS: NITROGLYCERIN/D5W 50 MG/250 ML RTUINJ IV PRN (13:38)
--- NOTE | 2019-05-17 15:04 | PDOC PROGRESS REPORT ---
Subjective Progress Note for:: 05/17/19 Subjective:: JUJU ANDRADE is a 58 year old male with a past medical history of hypertension, CAD, CHF, CKD, hepatic congestion, COPD, Depression, and remote amphetamine abuse who presented to the emergency department today with a complaint of worsening abdominal distention x1 week, worsening bilateral leg pain x1 week, and shortness of breath with orthopnea that has gradually worsened over the last several weeks. Upon EMS arrival, the patient was found to be cyanotic with an room air saturation in the 80s. He was provided IV Solu-Medrol and placed on supplemental oxygen with some improvement. Further evaluation in the emergency department revealed hypertension (197/105), tachypnea (RR 32), hypoxia on room air, unremarkable CBC, INR 1.35, normal VBG, and a chemistry showing creatinine of 1.61 (at baseline), elevated lactic acid of 2.9, proBNP of 8900 and an indeterminate troponin of 0.039. Patient does deny chest pain. EKG shows sinus rhythm with LVH, chest x-ray suggestive of pulmonary vascular congestion. He is referred to the hospitalist service for admission and management of the above-stated complaints and findings. 05/14/2019. No acute events overnight. Patient still complaining shortness of breath and orthopnea, and dependent on supplemental O2, denies any chest pain, nausea, vomiting, diarrhea, constipation or any urinary symptoms. 05/15/2019. No acute events overnight. Patient resting on supplemental oxygen, noted to be mild respiratory distress, cannot talk in full sentences, on supplemental oxygen, still complaining of bilateral lower extremity pain, patient stated that he used to live in [place] for 10 years and has had several heart surgery for valve replacements, and has been living in [facility] for the last 2 years, he has 1 friend here that usually helps around the house, he has no family except for her daughter with whom he does not have any contact with the movement. He is denying any chest pain, fever, chills, nausea, vomiting. Patient was found to have very low ejection fraction and cardiology has been c onsulted. Patient also noted to have severe portal hypertension and pulmonology can consult, for his lower extremity PVD vascular surgeon has been consulted. 05/16/2019. Patient continues to be short of breath and BiPAP dependent, complaining of PND, denies any chest discomfort, reports mild improvement of bilateral lower extremity cellulitis, denies any chest pain, nausea, vomiting. 05/17/2019. No acute events overnight. Patient still hypoxic mild respiratory distress and has PND, denies any chest pain, nausea, diarrhea, constipation, abdominal pain. Pressures are stable and still on dopamine and nitroglycerin drip. Lower extremity cellulitis improving. Cardiology following. Reason For Visit: HEART FAILURE Physical Exam Vital Signs: Temp Pulse Resp BP Pulse Ox 97.9 F 95 24 H 154/64 H 94 05/17/19 11:30 05/17/19 14:00 05/17/19 13:52 05/17/19 14:00 05/17/19 13:52 Intake & Output 05/16/19 05/17/19 05/18/19 06:59 06:59 07:59 Intake Total 2694 1324 550 Output Total 2225 1850 Balance 469 -526 550 Weight 110.7 kg 110.7 kg General appearance: PRESENT: mild distress Head exam: PRESENT: atraumatic, normocephalic Respiratory exam: PRESENT: accessory muscle use, clear to auscultation torsten. ABSENT: rales, rhonchi, wheezes Cardiovascular exam: PRESENT: RRR. ABSENT: diastolic murmur, rubs, systolic murmur GI/Abdominal exam: PRESENT: normal bowel sounds, soft. ABSENT: distended, guarding, mass, organolmegaly, rebound, tenderness Neurological exam: PRESENT: alert, awake, oriented to person, oriented to place, oriented to time, oriented to situation, CN II-XII grossly intact - Severe hearing loss, chronic.. ABSENT: motor sensory deficit Results Laboratory Results: 05/17/19 05:33 05/17/19 05:33 05/17/19 05/17/19 05/17/19 05:33 05:33 11:40 WBC 11.4 H RBC 4.53 Hgb 11.4 L Hct 35.5 L MCV 78 L MCH 25.3 L MCHC 32.3 RDW 22.2 H Plt Count 197 Carbonic Acid 1.16 HCO3/H2CO3 Ratio 19:1 ABG pH 7.39 ABG pCO2 38.5 ABG pO2 60.3 L ABG HCO3 22.7 ABG O2 Saturation 91.0 L ABG Base Excess -2.0 FiO2 5.5L Sodium 137.0 Potassium 4.6 Chloride 100 Carbon Dioxide 24 Anion Gap 13 BUN 79 H Creatinine 3.05 H Est GFR ( Amer) 25 L Glucose 128 H Calcium 8.7 Magnesium 2.8 H Total Bilirubin 1.5 H AST 23 Alkaline Phosphatase 118 Total Protein 6.4 Albumin 3.5 05/12/19 05/12/19 05/13/19 12:00 18:31 00:16 CK-MB (CK-2) Troponin I 0.039 0.041 0.039 NT-Pro-B Natriuret Pep 8970 H 05/13/19 05/14/19 09:35 04:26 CK-MB (CK-2) 4.88 H Troponin I 0.047 NT-Pro-B Natriuret Pep 58274 H Impressions: Chest X-Ray 05/15/19 15:34 IMPRESSION: Right jugular central line tip SVC. No Pneumothorax Assessment and Plan - Diagnosis (1) Acute respiratory failure with hypoxia Is this a current diagnosis for this admission?: Yes Plan: Improvement of wheezing on physical examination otherwise unchanged. Multifactorial. Secondary to acute on chronic combined systolic and diastolic heart failure, ERNESTINE on CKD, acute COPD exacerbation in the setting of severe pulmonary hypertension. Continue treating underlying acute CHF exacerbation. Continue duo nebs, BiPAP, flutter valve, incentive spirometry, pulmonary toileting, IV steroids. (2) Acute exacerbation of congestive heart failure Qualifiers: Heart failure type: combined systolic and diastolic Qualified Code(s): I50.43 - Acute on chronic combined systolic (congestive) and diastolic (congestive) heart failure Is this a current diagnosis for this admission?: Yes Plan: Acute exacerbation of combined systolic and systolic heart failure NYHA stage III. This likely due to medication noncompliance, patient does not have a assistant case manager. 10/12/2019 2D echo LVEF 25%. Grade 1/4 mild diastolic dysfunction. RSVP 96 200 m mHg. proBNP is 12,700 up from 8970 from admission. Continue strict in and out, fluid restriction, IV diuretics, JOSE D, beta-blockers, daily weight. Patient has also been started on dobutamine and IV nitroglycerin intravenously. Cardiology consulted. Recommendations noted. (3) Cellulitis, leg Qualifiers: Laterality: unspecified laterality Qualified Code(s): L03.119 - Cellulitis of unspecified part of limb Is this a current diagnosis for this admission?: Yes Plan: Mild improvement of anterior ankles otherwise unchanged. Bilateral lower extremity cellulitis complicated by underlying severe stasis dermatitis and peripheral vascular disease and likely some dermatologic disorder. Arterial Doppler positive for moderate hemodynamically significant lesion in the bilateral lower extremities on duplex imaging, focal stenosis identified. Significant arterial obstructive disease noted in the popliteal on the right infrageniculate vessel on the left. Wound culture growing gram-positive cocci in clusters and Acinetobacter Baumannii sensitive to beta lactams, carboplatin, and quinolones. Guidelines review recommends broad-spectrum IV antibiotics either beta lactams or carbapenems. For Acinetobacter Baumannii will start on IV cefepime every 8 hours. Gram-positive cocci in clusters in the blood turned out to be Corynebacterium. DC clindamycin. Continue wound care. Day 6 antibiotics. Day 4 IV cefepime. Received 3 days of IV clindamycin. Received 3 days of p.o. Keflex. (4) Acute on chronic renal failure Qualifiers: Chronic kidney disease stage: stage 3 (moderate) Is this a current diagnosis for this admission?: Yes Plan: Prerenal. Worsening creatinine. Nonoliguric. History of CKD. Baseline creatinine 2-3. Monitor volume status and electrolytes, replace as needed. Avoid nephrotoxic meds. Hold IV Lasix. We will consult nephrology. (5) COPD (chronic obstructive pulmonary disease) Qualifiers: COPD type: COPD with acute exacerbation Qualified Code(s): J44.1 - Chronic obstructive pulmonary disease with (acute) exacerbation Is this a current diagnosis for this admission?: Yes Plan: Complicated by underlying acute CHF at severe pulmonary hypertension. Plan as per 1. Patient may benefit from pulmonary rehab. Will consult discharge planning. (6) Peripheral vascular disease Is this a current diagnosis for this admission?: Yes Plan: Severe bilateral lower extremity stasis dermatitis, cellulitis complicated by PVD. Arterial Doppler positive for moderate hemodynamically significant lesion in the bilateral lower extremities on duplex imaging, focal stenosis identified. Significant arterial obstructive disease noted in the popliteal on the right infrageniculate vessel on the left. Vascular surgeon consulted. Recommendations pending. (7) Pulmonary hypertension Is this a current diagnosis for this admission?: Yes Plan: Severe pulmonary hypertension. RSVP 100 mmHg. Pulmonology consulted. Recommendations pending. Plan as per above. - Plan Summary Summary: 05/13/2019 Temp 98 6 pulse 82 blood pressure 151/73 O2 sat 94% on 5 L nasal cannula Patient has been on 5 L of oxygen since he was admitted. Patient states that wh ile in the emergency room he was on BiPAP and he felt much better and is asking for BiPAP again. I agree he may feel better so I have ordered BiPAP BUN is up slightly from 28-31, creatinine is stable 1.7 Hemoglobin A1c is 6.0 lactic acid is down to 2.3 from 3.7 Troponins are basically stable doubly elevated due to his respiratory drive Chest x-ray shows cardiomegaly but no acute disease We will repeat BNP in the morning. Patient currently on Lasix 20 mg IV every 6 hours Entresto every 12 hours solu Medrol 40 mg every 8 hours Ancef every 6 hours Patient is also on his Xarelto 2.5 mg every 12 hours
--- NOTE | 2019-05-17 20:27 | Progress Note ---
Provider Note Provider Note: CARDIOLOGY PROGRESS NOTE by Dr. Radha Lara on 05/17/2019. OBJECTIVE: The patient is lost his hearing aid and is very hard of hearing. He seems to be less short of breath. He does continue to have orthopnea. His leg edema is slightly improved but he has a raw reddened superficial ulcer which is not bleeding in the dorsum of his right foot. He denies any leg pain. There is no chest pain or discomfort. There is no arrhythmia seen on the monitor. His blood pressure still is better but not optimally controlled. His renal function is worsening in spite of the patient's being on inotropes. His Lasix has been held. PHYSICAL EXAMINATION: The patient is mildly obese. He appears to be chronically ill. Selected Entries 05/17/19 15:51 Temperature 99.2 F Temperature Oral Source Pulse Rate 93 Respiratory 22 H Rate Blood Pressure 154/75 H Blood Pressure 101 Mean BP Location Left Arm BP Position Sitting O2 Sat by Pulse 92 Oximetry Oxygen Flow 5.50 Rate Oxygen Delivery Nasal Cannula Method HEAD: Head is atraumatic normocephalic. Eyes: Pupils are equal round regular reactive light accommodation extraocular movements are normal there is no congenital pallor there is no scleral icterus. Ears: External auditory canals are clear, there are no lesions of the pinna. Nose: No deviated nasal septum and no inflammation of the nasal mucous membrane. Mouth: Mucous membranes of mouth are moist tongue is moist there is no ulcers there is no bleeding from the gums. Throat: There is no redness of the oropharynx there is no exudates. Skin: There is no petechia or ecchymosis there is no skin lesions or skin rashes. Neck: Neck is supple there is JVD present. Carotids equal there is no bruit there is no lymphadenopathy there is no neck stiffness. There is no goiter trachea central lungs: Lungs show diminished air entry and prolonged expiration. Scattered rhonchi and wheezing present. There is bibasilar rales of CHF. There is no chest wall tenderness. HEART: S1-S2 is heard there is no S3 gallop there is no S4 gallop S1 is of normal intensity. There is no rub. The systolic murmur of MR and TR. There is no prosthetic valve clicks heard. Abdomen: Abdomen is soft, mildly distended, no definite ascites. There is no hepatosplenomegaly. Bowel sounds well heard there is no tender areas of masses. There is no rebound guarding or rigidity. Extremities: Femorals are slightly diminished, there is no bruits. Leg pulses are diminished. There is trace 2- edema, with venous stasis dermatitis. There is no DVT or cellulitis there is no cyanosis or clubbing there is no DVT or cellulitis. There is no calf tenderness. VP CARDIOVASCULAR: The patient is awake alert oriented 3 with no focal deficits. But in spite of this he has slow mentation. Psychiatric: The patient judgment and insight are intact and his affect is flat. The patient's 24-hour intake is 1324 mL, and the 24-hour output is 1850 mL. Labs- All tests 24 hr 05/16/19 05/17/19 05/17/19 21:12 05:33 05:33 WBC 11.4 H RBC 4.53 Hgb 11.4 L Hct 35.5 L MCV 78 L MCH 25.3 L MCHC 32.3 RDW 22.2 H Plt Count 197 Carbonic Acid HCO3/H2CO3 Ratio ABG pH ABG pCO2 ABG pO2 ABG HCO3 ABG Total CO2 ABG O2 Saturation ABG Base Excess FiO2 Sodium 137.0 Potassium 4.6 Chloride 100 Carbon Dioxide 24 Anion Gap 13 BUN 79 H Creatinine 3.05 H Est GFR ( Amer) 25 L Est GFR (MDRD) Non-Af 21 L Glucose 128 H POC Glucose 140 H Calcium 8.7 Magnesium 2.8 H Total Bilirubin 1.5 H Direct Bilirubin 1.1 H Neonat Total Bilirubin Not Reportable Neonat Direct Bilirubin Not Reportable Neonat Indirect Bili Not Reportable AST 23 ALT 10 Alkaline Phosphatase 118 Total Protein 6.4 Albumin 3.5 05/17/19 11:40 WBC RBC Hgb Hct MCV MCH MCHC RDW Plt Count Carbonic Acid 1.16 HCO3/H2CO3 Ratio 19:1 ABG pH 7.39 ABG pCO2 38.5 ABG pO2 60.3 L ABG HCO3 22.7 ABG Total CO2 23.9 ABG O2 Saturation 91.0 L ABG Base Excess -2.0 FiO2 5.5L Sodium Potassium Chloride Carbon Dioxide Anion Gap BUN Creatinine Est GFR ( Amer) Est GFR (MDRD) Non-Af Glucose POC Glucose Calcium Magnesium Total Bilirubin Direct Bilirubin Neonat Total Bilirubin Neonat Direct Bilirubin Neonat Indirect Bili AST ALT Alkaline Phosphatase Total Protein Albumin Chest X-Ray 05/12/19 11:53 IMPRESSION: No acute cardiopulmonary process. Chest X-Ray 05/14/19 00:00 IMPRESSION: No acute cardiopulmonary process. Chest X-Ray 05/15/19 15:34 IMPRESSION: Right jugular central line tip SVC. No Pneumothorax IMPRESSION/RECOMMENDATION: 1. Acute respiratory failure secondary to combination of acute on chronic systolic heart failure, acute renal failure causing volume overload, acute exacerbation of COPD, and severe pulmonary hypertension. Continue BiPAP and oxygen support. 2. Acute on chronic systolic heart failure. Patient has been placed on fluid restriction of thousand 500-minute each 24 hours. He is on inotropes both dobutamine and he is also on IV nitroglycerin. In spite of this his creatinine is increasing. Hence his Lasix has been rightfully stopped. His blood pressure is not optimally controlled. The patient is on hydralazine p.o. and also on a as needed basis IV hydralazine. Will increase p.o. hydralazine. 3. Acute exacerbation COPD: Consider antibiotics. Continue respiratory treatments. 4. Hypertension: At present blood pressure reasonable7 5. Severe pulmonary hypertension: The dobutamine the IV nitroglycerin and hydralazine should help. Later we will see the feasibility of starting sildenafil. 6. Acute on chronic renal failure. Avoid nephrotoxic drugs the patient's Lasix intravenously has been stopped due to worsening creatinine. 7. Bipolar disorder 8. Tobacco abuse disorder. 9 coronary artery disease: History of coronary bypass graft surgery: No angina and troponin so far is not elevated. 10. Peripheral vascular disease: This will be addressed later on. 11. History of valvular repair: Details not available. Try to contact [facility] but they say they have not heard of the patient, and have no r ecords on him. Medications reviewed. Medications adjusted and medical new medications added. Medical regimen and management plan discussed with attending physician. Medical decision making is of high complexity 40 minutes spent on this patient, with more than 50% time spent in direct patient care. Will follow.
[2019-05-17] MEDS: LORAZEPAM INJ 2 MG/1 ML VIAL IV PRN (21:48)
[2019-05-17] MEDS: QUETIAPINE FUMARATE 300 MG PO SCH (21:58)
[2019-05-17] MEDS: NORMAL SALINE INJ/PF 0.9% 10 ML SDV IV PRN (21:58)
[2019-05-18] MEDS: MORPHINE SULFATE 10 MG/ML INJ IV PRN ×3 (01:48→21:34)
[2019-05-18] MEDS: NITROGLYCERIN/D5W 50 MG/250 ML RTUINJ IV PRN (01:51)
[2019-05-18] MEDS: DOBUTAMINE HCL/D5W 500 MG/250 ML RTUINJ IV PRN ×2 (01:52→19:40)
[2019-05-18] MEDS: HYDRALAZINE HCL INJ/PF 20 MG/1 ML SDV IV SCH ×4 (06:18→21:11)
[2019-05-18] MEDS: HYDRALAZINE HCL 25 MG TABLET PO SCH ×3 (06:19→17:15)
[2019-05-18] MEDS: METHYLPREDNISOLONE INJ 125 MG/2 ML SDV IV SCH (06:19)
[2019-05-18] MEDS: PANTOPRAZOLE SODIUM 40 MG TABLET.DR PO SCH (06:20)
[2019-05-18 06:48] LABS: HEMATOCRIT 35.6 % (37.9-51.0); HEMOGLOBIN 11.2 g/dL (13.5-17.0); MEAN CORPUSCULAR HEMOGLOBIN 24.9 pg (27.0-33.4); MEAN CORPUSCULAR HGB CONC 31.5 g/dL (32.0-36.0); MEAN CORPUSCULAR VOLUME 79 fl (80-97); PLATELET COUNT 208 10^3/uL (150-450); RED BLOOD COUNT 4.51 10^6/uL (4.35-5.55); RED CELL DISTRIBUTION WIDTH 22.9 % (11.5-14.0); WHITE BLOOD COUNT 12.1 10^3/uL (4.0-10.5)
[2019-05-18 07:04] LABS: ALBUMIN 3.5 g/dL (3.5-5.0); ALKALINE PHOSPHATASE 106 U/L (38-126); ANION GAP 13 (5-19); ASPARTATE AMINO TRANSFERASE 27 U/L (17-59); BILIRUBIN,TOTAL 1.8 mg/dL (0.2-1.3); BLOOD UREA NITROGEN 92 mg/dL (7-20); CALCIUM 8.5 mg/dL (8.4-10.2); CARBON DIOXIDE 22 mmol/L (22-30); CHLORIDE 100 mmol/L (98-107); GLUCOSE 131 mg/dL (75-110); POTASSIUM 4.7 mmol/L (3.6-5.0)
[2019-05-18] MEDS: IPRATROPIUM/ALBUTEROL 0.5-2.5 MG/3 ML AMPUL NEB SCH ×3 (08:00→19:30)
[2019-05-18] MEDS: QUETIAPINE FUMARATE 150 MG PO SCH (09:22)
[2019-05-18] MEDS: RIVAROXABAN 2.5 MG TABLET PO SCH ×2 (09:23→21:17)
[2019-05-18] MEDS: CEFEPIME 1 GM/D5W RTU 1 GM/50 ML RTUPB IV SCH ×2 (09:23→21:14)
[2019-05-18] MEDS: MINERAL OIL/PETROLATUM,WHITE CREAM 114 GM TP SCH (09:23)
[2019-05-18] MEDS: MULTIVITAMIN TABLET PO SCH (09:24)
[2019-05-18] MEDS: PAROXETINE HCL 20 MG TABLET PO SCH ×2 (09:24)
[2019-05-18] MEDS: VITAMIN B COMPLEX TABLET PO SCH (09:24)
[2019-05-18] MEDS: THIAMINE HCL 100 MG TABLET PO SCH (09:24)
[2019-05-18] MEDS: SACUBITRIL/VALSARTAN 24 MG/26 MG TABLET PO SCH (09:24)
[2019-05-18] MEDS: ASPIRIN 81 MG TABLET, ENT COATED PO SCH (09:24)
[2019-05-18] MEDS: FLUTICASONE/UMECLIDIN/VILANTER 100-62.5-25 MCG/DOSE IH SCH (09:25)
--- NOTE | 2019-05-18 16:49 | PDOC PROGRESS REPORT ---
Subjective Progress Note for:: 05/18/19 Subjective:: JUJU ANDRADE is a 58 year old male with a past medical history of hypertension, CAD, CHF, CKD, hepatic congestion, COPD, Depression, and remote amphetamine abuse who presented to the emergency department today with a complaint of worsening abdominal distention x1 week, worsening bilateral leg pain x1 week, and shortness of breath with orthopnea that has gradually worsened over the last several weeks. Upon EMS arrival, the patient was found to be cyanotic with an room air saturation in the 80s. He was provided IV Solu-Medrol and placed on supplemental oxygen with some improvement. Further evaluation in the emergency department revealed hypertension (197/105), tachypnea (RR 32), hypoxia on room air, unremarkable CBC, INR 1.35, normal VBG, and a chemistry showing creatinine of 1.61 (at baseline), elevated lactic acid of 2.9, proBNP of 8900 and an indeterminate troponin of 0.039. Patient does deny chest pain. EKG shows sinus rhythm with LVH, chest x-ray suggestive of pulmonary vascular congestion. He is referred to the hospitalist service for admission and management of the above-stated complaints and findings. 05/14/2019. No acute events overnight. Patient still complaining shortness of breath and orthopnea, and dependent on supplemental O2, denies any chest pain, nausea, vomiting, diarrhea, constipation or any urinary symptoms. 05/15/2019. No acute events overnight. Patient resting on supplemental oxygen, noted to be mild respiratory distress, cannot talk in full sentences, on supplemental oxygen, still complaining of bilateral lower extremity pain, patient stated that he used to live in [place] for 10 years and has had several heart surgery for valve replacements, and has been living in [facility] for the last 2 years, he has 1 friend here that usually helps around the house, he has no family except for her daughter with whom he does not have any contact with the movement. He is denying any chest pain, fever, chills, nausea, vomiting. Patient was found to have very low ejection fraction and cardiology has been c onsulted. Patient also noted to have severe portal hypertension and pulmonology can consult, for his lower extremity PVD vascular surgeon has been consulted. 05/16/2019. Patient continues to be short of breath and BiPAP dependent, complaining of PND, denies any chest discomfort, reports mild improvement of bilateral lower extremity cellulitis, denies any chest pain, nausea, vomiting. 05/17/2019. No acute events overnight. Patient still hypoxic mild respiratory distress and has PND, denies any chest pain, nausea, diarrhea, constipation, abdominal pain. Pressures are stable and still on dopamine and nitroglycerin drip. Lower extremity cellulitis improving. Cardiology following. 05/18/2019. No acute events overnight. Patient reporting mild improvement of his symptoms compared to yesterday, unfortunately patient is extremely hard of hearing and also lost his hearing aid very hard to communicate with him, denies any fever, chest pain, nausea or vomiting. Reason For Visit: HEART FAILURE Physical Exam Vital Signs: Temp Pulse Resp BP Pulse Ox 97.8 F 93 13 154/59 H 96 05/18/19 11:59 05/18/19 14:00 05/18/19 16:00 05/18/19 12:00 05/18/19 16:00 Intake & Output 05/17/19 05/18/19 05/19/19 05:59 06:59 06:59 Intake Total 493 Output Total Balance 493 Weight General appearance: PRESENT: mild distress Head exam: PRESENT: atraumatic, normocephalic Neck exam: ABSENT: carotid bruit, JVD, lymphadenopathy, thyromegaly Respiratory exam: PRESENT: accessory muscle use, clear to auscultation torsten, tachypnea. ABSENT: rales, rhonchi, wheezes Cardiovascular exam: PRESENT: RRR. ABSENT: diastolic murmur, rubs, systolic murmur GI/Abdominal exam: PRESENT: normal bowel sounds, soft. ABSENT: distended, guarding, mass, organolmegaly, rebound, tenderness Neurological exam: PRESENT: alert, awake, oriented to person, oriented to place, oriented to time, oriented to situation, CN II-XII grossly intact. ABSENT: motor sensory deficit Skin exam: PRESENT: other - Bilateral lower extremity below the knee erythema and scant excoriations moderate improvement since admission. Results Laboratory Results: 05/18/19 06:32 05/18/19 06:32 05/18/19 05/18/19 06:32 06:32 WBC 12.1 H RBC 4.51 Hgb 11.2 L Hct 35.6 L MCV 79 L MCH 24.9 L MCHC 31.5 L RDW 22.9 H Plt Count 208 Sodium 134.9 L Potassium 4.7 Chloride 100 Carbon Dioxide 22 Anion Gap 13 BUN 92 H Creatinine 3.16 H Est GFR ( Amer) 24 L Glucose 131 H Calcium 8.5 Magnesium 3.0 H Total Bilirubin 1.8 H AST 27 Alkaline Phosphatase 106 Total Protein 6.0 L Albumin 3.5 05/12/19 14:55 Blood Blood Culture - Final NO GROWTH IN 5 DAYS 05/12/19 05/12/19 05/13/19 12:00 18:31 00:16 CK-MB (CK-2) Troponin I 0.039 0.041 0.039 NT-Pro-B Natriuret Pep 8970 H 05/13/19 05/14/19 09:35 04:26 CK-MB (CK-2) 4.88 H Troponin I 0.047 NT-Pro-B Natriuret Pep 69954 H Impressions: Chest X-Ray 05/15/19 15:34 IMPRESSION: Right jugular central line tip SVC. No Pneumothorax Assessment and Plan - Diagnosis (1) Acute respiratory failure with hypoxia Is this a current diagnosis for this admission?: Yes Plan: Improvement of wheezing on physical examination otherwise unchanged. Multifactorial. Secondary to acute on chronic combined systolic and diastolic heart failure, ERNESTINE on CKD, acute COPD exacerbation in the setting of severe pulmonary hypertension. Continue treating underlying acute CHF exacerbation. Continue duo nebs, BiPAP, flutter valve, incentive spirometry, pulmonary toileting, IV steroids. (2) Acute exacerbation of congestive heart failure Qualifiers: Heart failure type: combined systolic and diastolic Qualified Code(s): I50.43 - Acute on chronic combined systolic (congestive) and diastolic (congestive) heart failure Is this a current diagnosis for this admission?: Yes Plan: Acute exacerbation of combined systolic and systolic heart failure NYHA stage III. 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 10/12/2019 2D echo LVEF 25%. Grade 1/4 mild diastolic dysfunction. RSVP 96 200 mmHg. proBNP is 12,700 up from 8970 from admission. Continue strict in and out, fluid restriction, IV diuretics, JOSE D, beta-blockers, daily weight. Patient has also been started on dobutamine and IV nitroglycerin intravenously. Cardiology consulted. Recommendations noted. (3) Cellulitis, leg Qualifiers: Laterality: unspecified laterality Qualified Code(s): L03.119 - Cellulitis of unspecified part of limb Is this a current diagnosis for this admission?: Yes Plan: Moderate improvement since admission. Bilateral lower extremity cellulitis complicated by underlying severe stasis dermatitis and peripheral vascular disease and likely some dermatologic disorder. Arterial Doppler positive for moderate hemodynamically significant lesion in the bilateral lower extremities on duplex imaging, focal stenosis identified. Significant arterial obstructive disease noted in the popliteal on the right infrageniculate vessel on the left. Wound culture growing gram-positive cocci in clusters and Acinetobacter Baumannii sensitive to beta lactams, carboplatin, and quinolones. Guidelines review recommends broad-spectrum IV antibiotics either beta lactams or carbapenems. For Acinetobacter Baumannii will start on IV cefepime every 8 hours. Gram-positive cocci in clusters in the blood turned out to be Corynebacterium. DC clindamycin. Continue wound care. Day 7 antibiotics. Day 5 IV cefepime. Received 3 days of IV clindamycin. Received 3 days of p.o. Keflex. (4) Acute on chronic renal failure Qualifiers: Chronic kidney disease stage: stage 3 (moderate) Is this a current diagnosis for this admission?: Yes Plan: Prerenal. Worsening creatinine. Nonoliguric. History of CKD. Baseline creatinine 2-3. Monitor volume status and electrolytes, replace as needed. Avoid nephrotoxic meds. Hold IV Lasix. We will consult nephrology. (5) COPD (chronic obstructive pulmonary disease) Qualifiers: COPD type: COPD with acute exacerbation Qualified Code(s): J44.1 - Chronic obstructive pulmonary disease with (acute) exacerbation Is this a current diagnosis for this admission?: Yes Plan: Complicated by underlying acute CHF at severe pulmonary hypertension. Plan as per 1. Patient may benefit from pulmonary rehab. Will consult discharge planning. (6) Peripheral vascular disease Is this a current diagnosis for this admission?: Yes Plan: Severe bilateral lower extremity stasis dermatitis, cellulitis complicated by PVD. Arterial Doppler positive for moderate hemodynamically significant lesion in the bilateral lower extremities on duplex imaging, focal stenosis identified. Significant arterial obstructive disease noted in the popliteal on the right infrageniculate vessel on the left. Vascular surgeon consulted. Recommendations pending. (7) Pulmonary hypertension Is this a current diagnosis for this admission?: Yes Plan: Severe pulmonary hypertension. RSVP 100 mmHg. Pulmonology consulted. Recommendations pending. Plan as per above. (8) Physical deconditioning Is this a current diagnosis for this admission?: Yes Plan: Due to multiple chronic underlying end-stage comorbidities. Unlikely patient will be able to take care of herself independently. Patient is a good candidate for long-term placement. Will consult discharge planning. - Plan Summary Summary: 05/13/2019 Temp 98 6 pulse 82 blood pressure 151/73 O2 sat 94% on 5 L nasal cannula Patient has been on 5 L of oxygen since he was admitted. Patient states that wh ile in the emergency room he was on BiPAP and he felt much better and is asking for BiPAP again. I agree he may feel better so I have ordered BiPAP BUN is up slightly from 28-31, creatinine is stable 1.7 Hemoglobin A1c is 6.0 lactic acid is down to 2.3 from 3.7 Troponins are basically stable doubly elevated due to his respiratory drive Chest x-ray shows cardiomegaly but no acute disease We will repeat BNP in the morning. Patient currently on Lasix 20 mg IV every 6 hours Entresto every 12 hours solu Medrol 40 mg every 8 hours Ancef every 6 hours Patient is also on his Xarelto 2.5 mg every 12 hours
[2019-05-18] MEDS: NITROGLYCERIN 15 MG (0.6 MG/1 HR) PATCH.TD24 TD SCH (17:15)
[2019-05-18] MEDS: NORMAL SALINE 1000 ML 1,000 ML IV PRN (19:00)
--- NOTE | 2019-05-18 20:56 | Progress Note ---
Provider Note Provider Note: CARDIOLOGY PROGRESS NOTE by Dr. Radha Lara on 05/18/2019. SUBJECTIVE: The patient is very hard of hearing and he is lost his hearing aid which makes interaction with the patient very difficult. But the patient does understand written questions and answers appropriately. He denies any chest pain discomfort. There is shortness of breath is much improved. There is no arrhythmia seen on the monitor. The patient's renal function still remains the same. Of note the patient is on Entresto. This raises the possibility of whether the patient has renal artery stenosis given the fact the patient has significant peripheral arterial disease. The patient denies any TIA CVA symptoms. PHYSICAL EXAMINATION: The patient appears to be chronically ill, and mild to moderately obese. He is sitting up in the chair in no acute distress. Selected Entries 05/18/19 05/18/19 11:59 12:22 Temperature 97.8 F Pulse Rate 92 Respiratory 23 H 19 Rate Blood Pressure 154/59 H Blood Pressure 90 Mean BP Location Left Arm BP Position Sitting O2 Sat by Pulse 91 L 95 Oximetry Oxygen Flow 5.50 Rate Oxygen Delivery Bipap Method HEAD: Head is atraumatic normocephalic. Eyes: Pupils are equal round regular reactive light accommodation extraocular movements are normal there is no congenital pallor there is no scleral icterus. Ears: External auditory canals are clear, there are no lesions of the pinna. Nose: No deviated nasal septum and no inflammation of the nasal mucous membrane. Mouth: Mucous membranes of mouth are moist tongue is moist there is no ulcers there is no bleeding from the gums. Throat: There is no redness of the oropharynx there is no exudates. Skin: There is no petechia or ecchymosis there is no skin lesions or skin rashes. Neck: Neck is supple there is JVD present. Carotids equal there is no bruit there is no lymphadenopathy there is no neck stiffness. There is no goiter trachea central lungs: Lungs show diminished air entry and prolonged expiration. Scattered rhonchi and wheezing present. There is bibasilar rales of CHF. There is no chest wall tenderness. HEART: S1-S2 is heard there is no S3 gallop there is no S4 gallop S1 is of normal intensity. There is no rub. The systolic murmur of MR and TR. There is no prosthetic valve clicks heard. Abdomen: Abdomen is soft, mildly distended, no definite ascites. There is no hepatosplenomegaly. Bowel sounds well heard there is no tender areas of masses. There is no rebound guarding or rigidity. Extremities: Femorals are slightly diminished, there is no bruits. Leg pulses are diminished. There is trace 2- edema, with venous stasis dermatitis. There is no DVT or cellulitis there is no cyanosis or clubbing there is no DVT or cellulitis. There is no calf tenderness. GREEN ENERGY MARKETING ANALYST: The patient is awake alert oriented 3 with no focal deficits. But in spite of this he has slow mentation. Psychiatric: The patient judgment and insight are intact and his affect is flat. The patient's 24-hour intake is 1895 mL. His 24-hour output is 11,00 mL. IMPRESSION/RECOMMENDATION: 1. Acute respiratory failure secondary to combination of acute on chronic systolic heart failure, acute renal failure causing volume overload, acute exacerbation of COPD, and severe pulmonary hypertension. Continue BiPAP and oxygen support. 2. Acute on chronic systolic heart failure. Patient has been placed on fluid restriction of thousand 500-minute each 24 hours. He is on inotropes both dobutamine and he is also on IV nitroglycerin. In spite of this his creatinine is increasing. Hence his Lasix has been rightfully stopped. His blood pressure is not optimally controlled. The patient is on hydralazine p.o. and also on a as needed basis IV hydralazine. Will increase p.o. hydralazine. We will stop the patient's Entresto. Will decrease the patient's dobutamine to 2.5 mcg /kg/min and subsequently will discontinue the patient's dobutamine. Once the patient off dobutamine will get studies for renal artery stenosis given the fact that the patient has renal failure and significant peripheral vascular disease. 3. Acute exacerbation COPD: Consider antibiotics. Continue respiratory treatments. This is improved. 4. Hypertension: At present blood pressure reasonable7 5. Severe pulmonary hypertension: The dobutamine the IV nitroglycerin and hydralazine should help. Later we will see the feasibility of starting sildenafil. 6. Acute on chronic renal failure. Avoid nephrotoxic drugs the patient's Lasix intravenously has been stopped due to worsening creatinine. Will stop the patient's Entresto. We will continue patient's hydralazine. Will decrease the patient's nitroglycerin to 10 mcg/min and stop it and change the patient to topical nitrates. 7. Bipolar disorder 8. Tobacco abuse disorder. 9 coronary artery disease: History of coronary bypass graft surgery: No angina and troponin so far is not elevated. 10. Peripheral vascular disease: This will be addressed later on. 11. History of valvular repair: Details not available. Try to contact [facility] but they say they have not heard of the patient, and have no records on him. 12. Severe hearing loss: The patient has lost his hearing aids. Medications reviewed. Medications adjusted and medical new medications added. Medical regimen and management plan discussed with attending physician. Medical decision making review of the complex medication changes is of high complexity. 40 minutes spent as patient more than 50% time spent in direct patient care. Will follow.
[2019-05-18] MEDS: NORMAL SALINE INJ/PF 0.9% 10 ML SDV IV PRN (21:14)
[2019-05-18] MEDS: QUETIAPINE FUMARATE 300 MG PO SCH (21:17)
[2019-05-18] MEDS: LORAZEPAM INJ 2 MG/1 ML VIAL IV PRN (21:20)
[2019-05-19] MEDS: HYDRALAZINE HCL 25 MG TABLET PO SCH ×4 (00:21→17:17)
[2019-05-19] MEDS: HYDRALAZINE HCL INJ/PF 20 MG/1 ML SDV IV SCH ×4 (02:05→20:23)
[2019-05-19] MEDS: MORPHINE SULFATE 10 MG/ML INJ IV PRN ×2 (02:06→10:33)
[2019-05-19] MEDS: LORAZEPAM INJ 2 MG/1 ML VIAL IV PRN (05:00)
[2019-05-19] MEDS: PANTOPRAZOLE SODIUM 40 MG TABLET.DR PO SCH (05:03)
[2019-05-19 06:01] LABS: HEMATOCRIT 35.9 % (37.9-51.0); HEMOGLOBIN 11.9 g/dL (13.5-17.0); MEAN CORPUSCULAR HEMOGLOBIN 25.8 pg (27.0-33.4); MEAN CORPUSCULAR VOLUME 78 fl (80-97); PLATELET COUNT 187 10^3/uL (150-450); RED CELL DISTRIBUTION WIDTH 22.5 % (11.5-14.0)
[2019-05-19 06:11] LABS: ALBUMIN 3.8 g/dL (3.5-5.0); ALKALINE PHOSPHATASE 108 U/L (38-126); ANION GAP 12 (5-19); ASPARTATE AMINO TRANSFERASE 26 U/L (17-59); BILIRUBIN,DIRECT 1.1 mg/dL (0.0-0.4); BILIRUBIN,TOTAL 1.7 mg/dL (0.2-1.3); BLOOD UREA NITROGEN 101 mg/dL (7-20); CARBON DIOXIDE 26 mmol/L (22-30); CHLORIDE 100 mmol/L (98-107); GLUCOSE 115 mg/dL (75-110); POTASSIUM 4.9 mmol/L (3.6-5.0); TOTAL PROTEIN 6.5 g/dL (6.3-8.2)
[2019-05-19] MEDS: IPRATROPIUM/ALBUTEROL 0.5-2.5 MG/3 ML AMPUL NEB SCH ×3 (08:44→19:47)
[2019-05-19] MEDS: THIAMINE HCL 100 MG TABLET PO SCH (10:07)
[2019-05-19] MEDS: MULTIVITAMIN TABLET PO SCH (10:07)
[2019-05-19] MEDS: ASPIRIN 81 MG TABLET, ENT COATED PO SCH (10:07)
[2019-05-19] MEDS: VITAMIN B COMPLEX TABLET PO SCH (10:07)
[2019-05-19] MEDS: FLUTICASONE/UMECLIDIN/VILANTER 100-62.5-25 MCG/DOSE IH SCH (10:10)
[2019-05-19] MEDS: CEFEPIME 1 GM/D5W RTU 1 GM/50 ML RTUPB IV SCH ×2 (10:10→21:26)
[2019-05-19] MEDS: NITROGLYCERIN 15 MG (0.6 MG/1 HR) PATCH.TD24 TD SCH (10:11)
[2019-05-19] MEDS: PAROXETINE HCL 20 MG TABLET PO SCH ×2 (10:11)
[2019-05-19] MEDS: RIVAROXABAN 2.5 MG TABLET PO SCH ×2 (10:12→21:27)
[2019-05-19] MEDS: QUETIAPINE FUMARATE 150 MG PO SCH (10:13)
[2019-05-19] MEDS: MINERAL OIL/PETROLATUM,WHITE CREAM 114 GM TP SCH (10:14)
--- NOTE | 2019-05-19 17:50 | PDOC PROGRESS REPORT ---
Subjective Progress Note for:: 05/19/19 Subjective:: Significant difficulty expressing communicating with patient in past patient has significant difficulty hearing and he has no hearing aids present. However he is able to deny shortness of breath at this time. Reason For Visit: HEART FAILURE Physical Exam Vital Signs: Temp Pulse Resp BP Pulse Ox 97.4 F 88 15 135/53 H 94 05/19/19 15:49 05/19/19 15:49 05/19/19 15:49 05/19/19 15:49 05/19/19 14:12 Intake & Output 05/18/19 05/19/19 05/20/19 06:59 06:59 06:59 Intake Total 1352 390 Output Total 675 150 Balance 677 240 Weight 125.9 kg General appearance: PRESENT: no acute distress, cooperative, disheveled, hard of hearing Respiratory exam: PRESENT: clear to auscultation torsten, unlabored. ABSENT: tachypnea, wheezes Cardiovascular exam: PRESENT: +S1, +S2. ABSENT: diastolic murmur, systolic murmur, tachycardia GI/Abdominal exam: PRESENT: normal bowel sounds, soft. ABSENT: rebound, rigid, tenderness Extremities exam: PRESENT: other - Several wounds on lower extremity as well as significant swelling bilaterally and what looks like some crusted blood over his right foot. Scale was noted over [place] and toenails Neurological exam: PRESENT: alert, awake Psychiatric exam: ABSENT: anxious Focused psych exam: ABSENT: pressured speech Results Laboratory Results: 05/19/19 05:00 05/19/19 05:00 05/19/19 05/19/19 05:00 05:00 WBC 12.0 H RBC 4.60 Hgb 11.9 L Hct 35.9 L MCV 78 L MCH 25.8 L MCHC 33.0 RDW 22.5 H Plt Count 187 Sodium 138.1 Potassium 4.9 Chloride 100 Carbon Dioxide 26 Anion Gap 12 BUN 101 H Creatinine 3.38 H Est GFR ( Amer) 23 L Glucose 115 H Calcium 9.0 Magnesium 3.4 H Total Bilirubin 1.7 H AST 26 Alkaline Phosphatase 108 Total Protein 6.5 Albumin 3.8 05/12/19 05/12/19 05/13/19 12:00 18:31 00:16 CK-MB (CK-2) Troponin I 0.039 0.041 0.039 NT-Pro-B Natriuret Pep 8970 H 05/13/19 05/14/19 09:35 04:26 CK-MB (CK-2) 4.88 H Troponin I 0.047 NT-Pro-B Natriuret Pep 03939 H Impressions: Chest X-Ray 05/15/19 15:34 IMPRESSION: Right jugular central line tip SVC. No Pneumothorax Assessment and Plan - Diagnosis (1) Acute respiratory failure with hypoxia Is this a current diagnosis for this admission?: Yes Plan: Multifactorial. Secondary to acute on chronic systolic heart failure, ERNESTINE on CKD, acute COPD exacerbation in the setting of severe pulmonary hypertension. Currently on 5-6L NC (2) Acute exacerbation of congestive heart failure Qualifiers: Heart failure type: systolic Qualified Code(s): I50.23 - Acute on chronic systolic (congestive) heart failure Is this a current diagnosis for this admission?: Yes Plan: Acute exacerbation of systolic heart failure NYHA stage III. 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 05/12/2019 2D echo LVEF 25%. Grade 1/4 mild diastolic dysfunction. RSVP 96-100 mmHg. proBNP is 12,700. Cardiology following. Currently dobutamine and nitroglycerin drip have been discontinued and patient is now on nitroglycerin patches. Diuresis is currently on hold since yesterday given worsening kidney function. Entresto held as well for similar reasons. (3) Cellulitis, leg Qualifiers: Laterality: unspecified laterality Qualified Code(s): L03.119 - Cellulitis of unspecified part of limb Is this a current diagnosis for this admission?: Yes Plan: Moderate improvement since admission. Bilateral lower extremity cellulitis complicated by underlying severe stasis dermatitis and peripheral vascular disease and likely some dermatologic disorder. Arterial Doppler positive for moderate hemodynamically significant lesion in the bilateral lower extremities on duplex imaging, focal stenosis identified. Significant arterial obstructive disease noted in the popliteal on the right infrageniculate vessel on the left. Wound culture growing gram-positive cocci in clusters and Acinetobacter Baumannii sensitive to beta lactams, carboplatin, and quinolones. Currently on cefepime for coverage of Acinetobacter, Staphylococcus and Pseudomonas from wound culture Day 7 antibiotics. Day 5 IV cefepime. Received 3 days of IV clindamycin. Received 3 days of p.o. Keflex. (4) Physical deconditioning Is this a current diagnosis for this admission?: Yes Plan: Due to multiple chronic underlying end-stage comorbidities. Unlikely patient will be able to take care of herself independently. Patient is a good candidate for long-term placement. consulted discharge planning. (5) Acute on chronic renal failure Qualifiers: Chronic kidney disease stage: stage 3 (moderate) Is this a current diagnosis for this admission?: Yes Plan: Prerenal. Worsening creatinine. Nonoliguric. History of CKD. Baseline creatinine 2-3. Monitor volume status and electrolytes, replace as needed. Avoid nephrotoxic meds. Hold IV Lasix. Nephrology consult (6) COPD (chronic obstructive pulmonary disease) Qualifiers: COPD type: COPD with acute exacerbation Qualified Code(s): J44.1 - Chronic obstructive pulmonary disease with (acute) exacerbation Is this a current diagnosis for this admission?: Yes Plan: Complicated by underlying acute CHF at severe pulmonary hypertension. Plan as per 1. Patient may benefit from pulmonary rehab. Will consult discharge planning. (7) Peripheral vascular disease Is this a current diagnosis for this admission?: Yes Plan: Severe bilateral lower extremity stasis dermatitis, cellulitis complicated by PVD. Arterial Doppler positive for moderate hemodynamically significant lesion in the bilateral lower extremities on duplex imaging, focal stenosis identified. Significant arterial obstructive disease noted in the popliteal on the right inf rageniculate vessel on the left. Vascular surgeon consulted. Recommendations pending. (8) Pulmonary hypertension Is this a current diagnosis for this admission?: Yes Plan: Severe pulmonary hypertension. RSVP 100 mmHg. Pulmonology consulted. Recommendations pending. Plan as per above. - Time Time Spent with patient: Less than 15 minutes
--- NOTE | 2019-05-19 18:08 | Progress Note ---
Provider Note Provider Note: CARDIOLOGY PROGRESS NOTE by Dr. Radha Lara on 05/19/2019. SUBJECTIVE: The patient is back on BiPAP due to shortness of breath. He appears to be slightly drowsy. He does have intermittent twitching which is chronic. He denies chest pain or discomfort. He has orthopnea. There is no cough. His leg ulcer raw area on the right foot dorsum seems to be slightly better. He is off the dobutamine and the nitroglycerin. His renal function is still worsening. Will get a renal artery Dopplers to make sure the patient has no renal artery stenosis. He did manage to find his hearing aids. Hence communication is better with the patient. PHYSICAL EXAMINATION: The patient appears to be chronically ill and in mild to moderate respiratory distress. Selected Entries 05/19/19 05/19/19 05/19/19 15:00 15:17 15:49 Temperature 97.4 F Temperature Axillary Source Pulse Rate 88 Respiratory 15 Rate Blood Pressure 135/53 H Blood Pressure 80 Mean BP Location Left Arm BP Position Supine Fraction of 44 Inspired Oxygen (FIO2) Oxygen Delivery Bipap Method O2 Sat by Pulse 96 Oximetry by Telemetry HEAD: Head is atraumatic normocephalic. Eyes: Pupils are equal round regular reactive light accommodation extraocular movements are normal there is no congenital pallor there is no scleral icterus. Ears: External auditory canals are clear, there are no lesions of the pinna. Nose: No deviated nasal septum and no inflammation of the nasal mucous membrane. Mouth: Mucous membranes of mouth are moist tongue is moist there is no ulcers there is no bleeding from the gums. Throat: There is no redness of the oropharynx there is no exudates. Skin: There is no petechia or ecchymosis there is no skin lesions or skin rashes. Neck: Neck is supple there is JVD present. Carotids equal there is no bruit there is no lymphadenopathy there is no neck stiffness. There is no goiter trachea central lungs: Lungs show diminished air entry and prolonged expiration. Scattered rhonchi and wheezing present. There is bibasilar rales of CHF. There is no chest wall tenderness. HEART: S1-S2 is heard there is no S3 gallop there is no S4 gallop S1 is of normal intensity. There is no rub. The systolic murmur of MR and TR. There is no prosthetic valve clicks heard. Abdomen: Abdomen is soft, mildly distended, no definite ascites. There is no hepatosplenomegaly. Bowel sounds well heard there is no tender areas of masses. There is no rebound guarding or rigidity. Extremities: Femorals are slightly diminished, there is no bruits. Leg pulses are diminished. There is trace 2- edema, with venous stasis dermatitis. There is no DVT or cellulitis there is no cyanosis or clubbing there is no DVT or cellulitis. There is no calf tenderness. HAND UPPER AND BOTTOM LACER: The patient is awake alert oriented 3 with no focal deficits. But in spite of this he has slow mentation. Psychiatric: The patient judgment and insight are intact and his affect is flat. The patient's 24-hour intake is 1352 mL. His 24-hour output is 675 mL. Labs- All tests 24 hr 05/19/19 05/19/19 05/19/19 05:00 05:00 17:45 WBC 12.0 H RBC 4.60 Hgb 11.9 L Hct 35.9 L MCV 78 L MCH 25.8 L MCHC 33.0 RDW 22.5 H Plt Count 187 Sodium 138.1 Potassium 4.9 Chloride 100 Carbon Dioxide 26 Anion Gap 12 BUN 101 H Creatinine 3.38 H Est GFR ( Amer) 23 L Est GFR (MDRD) Non-Af 19 L Glucose 115 H Calcium 9.0 Magnesium 3.4 H Total Bilirubin 1.7 H Direct Bilirubin 1.1 H Neonat Total Bilirubin Not Reportable Neonat Direct Bilirubin Not Reportable Neonat Indirect Bili Not Reportable AST 26 ALT 12 Alkaline Phosphatase 108 Creatine Kinase Total Protein 6.5 Albumin 3.8 Urine Color Cancelled Urine Appearance Cancelled Urine pH Cancelled Ur Specific [place] Cancelled Urine Protein Cancelled Urine Glucose (UA) Cancelled Urine Ketones Cancelled Urine Blood Cancelled Urine Nitrite Cancelled Urine Bilirubin Cancelled Urine Urobilinogen Cancelled Ur Leukocyte Esterase Cancelled Urine WBC (Auto) Cancelled Urine RBC (Auto) Cancelled U Hyaline Cast (Auto) Cancelled Urine Bacteria (Auto) Cancelled Urine Red Cell Clumps Cancelled Urine WBC Clumps Cancelled Squamous Epi Cells Auto Cancelled U Non-Squamous Epis Auto Cancelled Calcium Carbonate Cryst Cancelled Calcium Phosphate Cryst Cancelled Calcium Oxalate Cr Auto Cancelled Leucine Crystals Cancelled Cystine Crystals Cancelled Uric Acid Cryst (Auto) Cancelled Triple Phos Cryst (Auto) Cancelled Tyrosine Crystals Cancelled Amorphous Sediment Auto Cancelled Cellular Casts Cancelled Epithelial Casts (Auto) Cancelled Fatty Casts Cancelled Granular Casts (Auto) Cancelled Waxy Casts (Auto) Cancelled Broad Casts Cancelled RBC Casts (Auto) Cancelled WBC Casts (Auto) Cancelled Urine Mucus (Auto) Cancelled U Trichomonas (Auto) Cancelled Ur Yeast w Hyphae Cancelled Urine Yeast (Budding) Cancelled Urine Ascorbic Acid Cancelled 05/19/19 17:45 WBC RBC Hgb Hct MCV MCH MCHC RDW Plt Count Sodium Potassium Chloride Carbon Dioxide Anion Gap BUN Creatinine Est GFR ( Amer) Est GFR (MDRD) Non-Af Glucose Calcium Magnesium Total Bilirubin Direct Bilirubin Neonat Total Bilirubin Neonat Direct Bilirubin Neonat Indirect Bili AST ALT Alkaline Phosphatase Creatine Kinase 230 H Total Protein Albumin Urine Color Urine Appearance Urine pH Ur Specific [place] Urine Protein Urine Glucose (UA) Urine Ketones Urine Blood Urine Nitrite Urine Bilirubin Urine Urobilinogen Ur Leukocyte Esterase Urine WBC (Auto) Urine RBC (Auto) U Hyaline Cast (Auto) Urine Bacteria (Auto) Urine Red Cell Clumps Urine WBC Clumps Squamous Epi Cells Auto U Non-Squamous Epis Auto Calcium Carbonate Cryst Calcium Phosphate Cryst Calcium Oxalate Cr Auto Leucine Crystals Cystine Crystals Uric Acid Cryst (Auto) Triple Phos Cryst (Auto) Tyrosine Crystals Amorphous Sediment Auto Cellular Casts Epithelial Casts (Auto) Fatty Casts Granular Casts (Auto) Waxy Casts (Auto) Broad Casts RBC Casts (Auto) WBC Casts (Auto) Urine Mucus (Auto) U Trichomonas (Auto) Ur Yeast w Hyphae Urine Yeast (Budding) Urine Ascorbic Acid Chest X-Ray 05/12/19 11:53 IMPRESSION: No acute cardiopulmonary process. Chest X-Ray 05/14/19 00:00 IMPRESSION: No acute cardiopulmonary process. Chest X-Ray 05/15/19 15:34 IMPRESSION: Right jugular central line tip SVC. No Pneumothorax IMPRESSION/RECOMMENDATION: 1. Acute respiratory failure secondary to combination of acute on chronic systolic heart failure, acute renal failure causing volume overload, acute exacerbation of COPD, and severe pulmonary hypertension. Continue BiPAP and oxygen support. 2. Acute on chronic systolic heart failure. Patient has been placed on fluid restriction of 1500 mL each 24 hours. The patient is off inotropes and IV nitroglycerin. He is on topical nitrates and hydralazine. His Entresto has been stopped, but still the patient renal function is deteriorating. Will get studies for renal artery stenosis given the fact that the patient has renal jose m lure and significant peripheral vascular disease. 3. Acute exacerbation COPD: Consider antibiotics. Continue respiratory treatments. This is improved. 4. Hypertension: At present blood pressure reasonable7 5. Severe pulmonary hypertension: The dobutamine the IV nitroglycerin and hydralazine should help. Later we will see the feasibility of starting sildenafil. 6. Acute on chronic renal failure. Avoid nephrotoxic drugs the patient's Lasix intravenously has been stopped due to worsening creatinine. Will stop the patient's Entresto. We will continue patient's hydralazine. Nephrology consult has been placed by the hospitalist. 7. Bipolar disorder 8. Tobacco abuse disorder. 9 coronary artery disease: History of coronary bypass graft surgery: No angina and troponin so far is not elevated. 10. Peripheral vascular disease: This will be addressed later on. 11. History of valvular repair: Details not available. Try to contact [facility] but they say they have not heard of the patient, and have no records on him. 12. Severe hearing loss: Medications reviewed. Medications and management plan discussed with the hospitalist. Medical decision making still is of high complexity. 40 minutes spent as patient more than 50% of time spent in direct patient care. Will follow.
[2019-05-19] MEDS: NORMAL SALINE 1000 ML 1,000 ML IV PRN (20:02)
[2019-05-19] MEDS: NORMAL SALINE INJ/PF 0.9% 10 ML SDV IV PRN (21:26)
[2019-05-19] MEDS: QUETIAPINE FUMARATE 300 MG PO SCH (21:26)
[2019-05-20] MEDS: HYDRALAZINE HCL 25 MG TABLET PO SCH ×3 (02:35→12:15)
[2019-05-20] MEDS: HYDRALAZINE HCL INJ/PF 20 MG/1 ML SDV IV SCH ×3 (02:47→17:00)
[2019-05-20 04:55] LABS: HEMATOCRIT 33.1 % (37.9-51.0); HEMOGLOBIN 10.9 g/dL (13.5-17.0); MEAN CORPUSCULAR HEMOGLOBIN 25.5 pg (27.0-33.4); MEAN CORPUSCULAR HGB CONC 32.8 g/dL (32.0-36.0); MEAN CORPUSCULAR VOLUME 78 fl (80-97); PLATELET COUNT 161 10^3/uL (150-450); RED BLOOD COUNT 4.27 10^6/uL (4.35-5.55); RED CELL DISTRIBUTION WIDTH 22.6 % (11.5-14.0); WHITE BLOOD COUNT 9.3 10^3/uL (4.0-10.5)
[2019-05-20 05:17] LABS: ALBUMIN 3.2 g/dL (3.5-5.0); ALKALINE PHOSPHATASE 91 U/L (38-126); ANION GAP 12 (5-19); ASPARTATE AMINO TRANSFERASE 25 U/L (17-59); BILIRUBIN,DIRECT 0.9 mg/dL (0.0-0.4); BILIRUBIN,TOTAL 1.4 mg/dL (0.2-1.3); CALCIUM 8.4 mg/dL (8.4-10.2); CARBON DIOXIDE 22 mmol/L (22-30); CHLORIDE 104 mmol/L (98-107); GLUCOSE 93 mg/dL (75-110); POTASSIUM 4.7 mmol/L (3.6-5.0); TOTAL PROTEIN 5.8 g/dL (6.3-8.2)
[2019-05-20 05:37] LABS: BLOOD UREA NITROGEN 122 mg/dL (7-20)
[2019-05-20] MEDS: PANTOPRAZOLE SODIUM 40 MG TABLET.DR PO SCH (06:18)
[2019-05-20] MEDS: IPRATROPIUM/ALBUTEROL 0.5-2.5 MG/3 ML AMPUL NEB SCH ×3 (08:30→20:29)
[2019-05-20] MEDS: FLUTICASONE/UMECLIDIN/VILANTER 100-62.5-25 MCG/DOSE IH SCH (09:35)
[2019-05-20] MEDS: MULTIVITAMIN TABLET PO SCH (09:36)
[2019-05-20] MEDS: CEFEPIME 1 GM/D5W RTU 1 GM/50 ML RTUPB IV SCH ×2 (09:36→21:58)
[2019-05-20] MEDS: PAROXETINE HCL 20 MG TABLET PO SCH ×2 (09:36→09:37)
[2019-05-20] MEDS: THIAMINE HCL 100 MG TABLET PO SCH (09:36)
[2019-05-20] MEDS: ASPIRIN 81 MG TABLET, ENT COATED PO SCH (09:36)
[2019-05-20] MEDS: QUETIAPINE FUMARATE 150 MG PO SCH (09:37)
[2019-05-20] MEDS: MINERAL OIL/PETROLATUM,WHITE CREAM 114 GM TP SCH (09:38)
[2019-05-20] MEDS: VITAMIN B COMPLEX TABLET PO SCH (09:38)
--- NOTE | 2019-05-20 10:23 | RADIOLOGY REPORT (SQ) ---
EXAM DESCRIPTION: DUPLEX ART/SALMA FLOW COMPLETE COMPLETED DATE/TIME: 05/20/2019 7:34 am REASON FOR STUDY: Assess Bilateral Renal artery dopplers for DAMASO COMPARISON: None. TECHNIQUE: Realtime and static grayscale images acquired. Selected color Doppler, velocities and spe ctral images recorded. LIMITATIONS: Midline bowel gas, body habitus. Unable to effectively evaluate the renal arteries for renal artery stenosis with Doppler. FINDINGS: RIGHT KIDNEY: RENAL ARTERY VELOCITIES: Unable to evaluate RENAL VEIN: Color doppler flow present, patent. KIDNEY: 10.5 cm in length with diffuse cortical thinning. No cysts, no hydronephrosis, no gross ma sses LEFT KIDNEY: RENAL ARTERY VELOCITIES: Unable to evaluate . RENAL VEIN: Color doppler flow present, patent KIDNEY: 10 cm in length with diffuse cortical thinning. No cysts, no hydronephrosis, no gross bashir s BLADDER: Decompressed, not well seen OTHER: No other significant finding. IMPRESSION: Nondiagnostic study COMMENT: NORMAL RENAL ARTERY/AORTA VELOCITY RATIO IS LESS THAN OR EQUAL TO 3.5. TECHNICAL DOCUMENTATION: JOB ID: [id number] 2010 [employer]- All Rights Reserved Reading location - IP/workstation name: [email or web address]
[2019-05-20 10:56] LABS: ARTERIAL BLOOD BASE EXCESS -5.6 mmol/L; ARTERIAL BLOOD FIO2 6L; ARTERIAL BLOOD H2CO3 1.19 mmol/L (1.05-1.35); ARTERIAL BLOOD O2 SATURATION 88.7 % (94-98); ARTERIAL BLOOD PCO2 39.7 mmHg (35-45); ARTERIAL BLOOD PH 7.32 (7.35-7.45); ARTERIAL BLOOD TOTAL CO2 21.3 mmol/L (23-27)
[2019-05-20 11:06] LABS: APPEARANCE,URINE SLIGHTLY-CLOUDY; BILIRUBIN,URINE NEGATIVE (NEGATIVE); COLOR,URINE BROWN; GLUCOSE, URINE NEGATIVE (NEGATIVE); KETONES,URINE NEGATIVE (NEGATIVE); LEUKOCYTE ESTERASE,URINE NEGATIVE (NEGATIVE); NITRITE,URINE NEGATIVE (NEGATIVE); PROTEIN,URINE 100 mg/dL (NEGATIVE); URINE SPECIFIC GRAVITY 1.016; UROBILINOGEN,URINE NEGATIVE mg/dL (<2.0)
--- NOTE | 2019-05-20 11:40 | RADIOLOGY REPORT (SQ) ---
EXAM DESCRIPTION: CHEST SINGLE VIEW COMPLETED DATE/TIME: 05/20/2019 11:04 am REASON FOR STUDY: SOB/CHF COMPARISON: Chest films 05/15/2019, 05/14/2019 EXAM PARAMETERS: NUMBER OF VIEWS: One view. TECHNIQUE: Single frontal radiographic view of the chest acquired. RADIATION DOSE: NA LIMITATIONS: None. FINDINGS: LUNGS AND PLEURA: Fluffy bilateral airspace disease is present worrisome for alveolar kelsey a. No pleural effusion. No pneumothorax. MEDIASTINUM AND HILAR STRUCTURES: No masses. Contour normal. HEART AND VASCULAR STRUCTURES: Borderline cardiomegaly, old sternotomy for CABG BONES: No acute findings. HARDWARE: Right jugular central line tip right atrium OTHER: No other significant finding. IMPRESSION: Pulmonary edema pattern TECHNICAL DOCUMENTATION: JOB ID: [id number] 2010 [employer]- All Rights Reserved Reading location - IP/workstation name: [email or web address]
[2019-05-20] MEDS: NITROGLYCERIN 15 MG (0.6 MG/1 HR) PATCH.TD24 TD SCH (12:15)
[2019-05-20] MEDS ORDERED: FUROSEMIDE INJ/PF 40 MG/4 ML SDV IV ONE (13:00)
[2019-05-20] MEDS ORDERED: FUROSEMIDE INJ/PF 100 MG/10 ML SDV IV ONE (15:39)
--- NOTE | 2019-05-20 16:20 | PDOC CONSULTATION ---
Consultation Consult Date: 05/20/19 Provider Consulted: SOFIA CONNORS Consult reason:: ERNESTINE on CKD History of Present Illness Admission Date/PCP: 05/12/19 14:02 LISSETTE CASTRO MD History of Present Illness: JUJU ANDRADE is a 58 year old male with a past medical history of hypertension, CAD, CHF, CKD3, hepatic congestion, COPD, Depression and illegal drug use. He came to the emergency department a week ago with the complaint of worsening abdominal distention for 1 week, worsening bilateral leg pain for 1 week, and shortness of breath with worsening orthopnea. According to previous notes, upon EMS arrival, the patient was found to be cyanotic on room air with an oxygen saturation in the 80s. He was provided IV Solu-Medrol and placed on supplemental oxygen with some improvement. In the emergency department his bp was found to be 197/105, RR 32, hypoxia on room air. Labs were drawn that showed a creatinine of 1.61, elevated lactic acid of 2.9, proBNP of 8900 and an indeterminate troponin of 0.039 with no chest pain. A chest x-ray did show fluid. He had swelling on his lower extremities with cellulitis. A doppler of his lower extremities did not show any blockages but it did show decreased blood flow. In the hospital he was placed on IV furosemide 20mg q6 for the swelling, he was placed on bipap, give IV steriods and IV ancef for the cellulitis. An echo was done by Dr. Santana around the same time that found an EF of 25, pulmonary hypertension and a 1/4 diastolic dysfunction. Through out the treatment for his cellulitis he was placed on PO clindamycin and most recently amcef. Over the past 7 days his creatinine and BUN have been slowly trending up. Cardiology started him on IV dobutamine and IV nitro. Around the 05/16/19 he was taken off of diuretics due to worsening creatinine. He also at the time was a lot less SOB. He was deemed to be more on the dry side so he was placed on IV fluids to help rehydrate him. BUN and creatinine continued to elevate up with the most recent Creatinine and BUN being 3.71/122. According to the nurse, Luzmaria, who is taking care of him he was recently increased to 100mL/hour of saline. With the elevating BUN his mental status continued to decrease and the nurse had noticed asterixis yesterday. Urine output has also significantly decreased and has become more of a tea color. Due to this he had a CPK drawn that was slightly elevated at 230. Unfortunately due to the patients mental status he was only able to answer a few questions. He denies chest pain. He has been having SOB, nausea with small amounts of vomiting and the appetite has been decreased. All other history was retrieved from his nurse, labs, meds or previous providers notes. Past Medical History Cardiac Medical History: Reports: Coronary Artery Disease, Hyperlipidemia Pulmonary Medical History: Reports: Chronic Obstructive Pulmonary Disease (COPD), Respiratory Failure EENT Medical History: Reports: None Neurological Medical History: Reports: None Endocrine Medical History: Reports: Obesity Complications of Diabetes: Reports: None Renal/ Medical History: Denies: Hematuria GI Medical History: Reports: Gastroesophageal Reflux Disease Musculoskeltal Medical History: Reports: Arthritis Skin Medical History: Reports: None Psychiatric Medical History: Reports: Bipolar Disorder Traumatic Medical History: Reports: None Infectious Medical History: Reports: None Past Surgical History Past Surgical History: Reports: Coronary Artery Bypass Graft, Valve Replacement Social History Lives with: Alone Smoking Status: Current Every Day Smoker Electronic Cigarette use?: Yes Frequency of Alcohol Use: None Hx Recreational Drug Use: No Hx Prescription Drug Abuse: No - Advance Directive Resuscitation Status: Full Code Family History Parental Family History Reviewed: No Children Family History Reviewed: Unknown Sibling(s) Family History Reviewed.: Unknown Medication/Allergy Home Medications: Albuterol Sulfate [Ventolin Hfa 8 gm Mdi] 2 puff IH Q6HP PRN 04/30/19 Furosemide [Lasix 40 mg Tablet] 40 mg PO BID 04/30/19 Omeprazole Magnesium [Prilosec Otc] 40 mg PO DAILY 04/30/19 Paroxetine HCl [Paxil] 10 mg PO DAILY 04/30/19 Quetiapine Fumarate [Quetiapine Fumarate ER] 300 mg PO QPM 04/30/19 Ranitidine HCl [Heartburn Relief] 150 mg PO BID 04/30/19 Rivaroxaban [Xarelto] 2.5 mg PO Q12 04/30/19 Sacubitril/Valsartan [Entresto 24 mg/26 mg Tablet] 1 tab PO Q12 04/30/19 Thiamine HCl [Thiamine 100 mg Tablet] 100 mg PO DAILY 04/30/19 Hydroxyzine Pamoate [Vistaril 25 mg Capsule] 25 mg PO QHS 05/12/19 Multivitamin/Iron/Folic Acid [Centrum Adults Tablet] 1 each PO DAILY 05/12/19 Paroxetine HCl [Paxil] 40 mg PO DAILY 05/12/19 Quetiapine Fumarate [Seroquel Xr] 150 mg PO QPM 05/12/19 Vitamin B Complex/Folic Acid [B-Complex Tablet] 1 tab PO DAILY 05/12/19 Allergies/Adverse Reactions: risperidone [From Risperdal] Allergy (Verified 04/30/19 12:35) trazodone Allergy (Verified 04/30/19 12:35) Review of Systems ROS unobtainable: Due to mental status Cardiovascular: ABSENT: chest pain Respiratory: PRESENT: dyspnea Gastrointestinal: PRESENT: nausea Physical Exam Vital Signs: Temp Pulse Resp BP Pulse Ox 97.6 F 93 16 112/52 L 90 L 05/20/19 11:11 05/20/19 11:11 05/20/19 11:11 05/20/19 11:11 05/20/19 11:11 Intake & Output 05/19/19 05/20/19 05/21/19 06:59 06:59 06:59 Intake Total 1352 1440 50 Output Total 675 375 Balance 677 1065 50 Weight 125.9 kg 127.6 kg General appearance: PRESENT: no acute distress, disheveled, well-developed, well-nourished Eye exam: ABSENT: scleral icterus Mouth exam: PRESENT: moist, neck supple. ABSENT: dry mucosa Neck exam: PRESENT: JVD. ABSENT: tracheal deviation Respiratory exam: PRESENT: accessory muscle use, crackles, rales. ABSENT: clear to auscultation torsten, rhonchi, wheezes Cardiovascular exam: PRESENT: +S1, +S2 GI/Abdominal exam: PRESENT: ascites, distended, firm, tenderness. ABSENT: guarding, soft Extremities exam: PRESENT: other - -trace+. ABSENT: tenderness, +1 edema, +2 edema Musculoskeletal exam: PRESENT: dislocation - -reddish purple lower legs Neurological exam: PRESENT: altered. ABSENT: oriented to person, oriented to place, oriented to time, oriented to situation Skin exam: PRESENT: dry, erythema - -lower legs bilaterally, intact, skin tears, warm. ABSENT: cyanosis, jaundice Results Laboratory Results: 05/20/19 04:27 05/20/19 04:27 05/19/19 05/20/19 05/20/19 17:45 04:27 04:27 WBC 9.3 RBC 4.27 L Hgb 10.9 L Hct 33.1 L MCV 78 L MCH 25.5 L MCHC 32.8 RDW 22.6 H Plt Count 161 Carbonic Acid HCO3/H2CO3 Ratio ABG pH ABG pCO2 ABG pO2 ABG HCO3 ABG O2 Saturation ABG Base Excess FiO2 Sodium 137.5 Potassium 4.7 Chloride 104 Carbon Dioxide 22 Anion Gap 12 BUN 122 H D Creatinine 3.71 H Est GFR ( Amer) 20 L Glucose 93 Calcium 8.4 Magnesium 3.3 H Total Bilirubin 1.4 H AST 25 Alkaline Phosphatase 91 Total Protein 5.8 L Albumin 3.2 L Urine Color Cancelled Urine Appearance Cancelled Urine pH Cancelled Ur Specific [place] Cancelled Urine Protein Cancelled Urine Glucose (UA) Cancelled Urine Ketones Cancelled Urine Blood Cancelled Urine Nitrite Cancelled Ur Leukocyte Esterase Cancelled Urine WBC (Auto) Cancelled Urine RBC (Auto) Cancelled 05/20/19 05/20/19 09:55 10:40 WBC RBC Hgb Hct MCV MCH MCHC RDW Plt Count Carbonic Acid 1.19 HCO3/H2CO3 Ratio 16:1 ABG pH 7.32 L ABG pCO2 39.7 ABG pO2 59.0 L ABG HCO3 20.0 ABG O2 Saturation 88.7 L ABG Base Excess -5.6 FiO2 6L Sodium Potassium Chloride Carbon Dioxide Anion Gap BUN Creatinine Est GFR ( Amer) Glucose Calcium Magnesium Total Bilirubin AST Alkaline Phosphatase Total Protein Albumin Urine Color BROWN Urine Appearance SLIGHTLY-CLOUDY Urine pH 5.0 Ur Specific [place] 1.016 Urine Protein 100 H Urine Glucose (UA) NEGATIVE Urine Ketones NEGATIVE Urine Blood LARGE H Urine Nitrite NEGATIVE Ur Leukocyte Esterase NEGATIVE Urine WBC (Auto) >182 Urine RBC (Auto) >182 05/15/19 09:32 Blood Blood Culture - Final NO GROWTH IN 5 DAYS 05/15/19 08:24 Blood Blood Culture - Final NO GROWTH IN 5 DAYS 05/12/19 05/12/19 05/13/19 12:00 18:31 00:16 Creatine Kinase CK-MB (CK-2) Troponin I 0.039 0.041 0.039 NT-Pro-B Natriuret Pep 8970 H 05/13/19 05/14/19 05/19/19 09:35 04:26 17:45 Creatine Kinase 230 H CK-MB (CK-2) 4.88 H Troponin I 0.047 NT-Pro-B Natriuret Pep 70063 H Impressions: Renal Artery Duplex 05/20/19 06:00 IMPRESSION: Nondiagnostic study Chest X-Ray 05/20/19 09:58 IMPRESSION: Pulmonary edema pattern Assessment & Plan - Diagnosis (1) Acute on chronic renal failure Qualifiers: Chronic kidney disease stage: stage 3 (moderate) Is this a current diagnosis for this admission?: Yes Plan: trending towards becoming an oliguric ERNESTINE, looks to be due to overdiuresis and possible ATN from the cellulitis infection. Other factors that are currently affecting him include a low bp, worsening CHF due to overhydrating with fluids and the fluid building up in his lungs. At this time he is uremic with AMS, decreased appetite, N/V, asterixis. No pericardial friction rub was heard. Unfortunately due to his AMS he can not make medical decisions. His only family is his daughter who he does not talk to at all. Will look to get social work involved so that we can get consent for doing dialysis to help remove fluid and other related renal toxins. Having fluids put on hold for now. (2) Acute exacerbation of congestive heart failure Qualifiers: Heart failure type: systolic Qualified Code(s): I50.23 - Acute on chronic systolic (congestive) heart failure Is this a current diagnosis for this admission?: Yes Plan: at this point and time urination has decreased significantly, BUN is going up when diuretics are given. Fluid is building up in his lungs. Due to all of this we will look to remove fluid by using dialysis. Having fluids stopped for now. (3) Acute respiratory failure with hypoxia Is this a current diagnosis for this admission?: Yes Plan: combination of CHF and COPD, see CHF for description on what will be done. COPD is per hospitalist. (4) Hypertension Qualifiers: Hypertension type: essential hypertension Qualified Code(s): I10 - Essential (primary) hypertension Is this a current diagnosis for this admission?: Yes Plan: BP was on the low end of normal this morning. Having the hydralazine held unless the bp gets above 140. Advised the nurse that if the bp stays around 90 systolic that the nitro patch will need to come off. (5) Bipolar disorder Is this a current diagnosis for this admission?: Yes Plan: per hospitalist (6) Cellulitis, leg Qualifiers: Laterality: unspecified laterality Qualified Code(s): L03.119 - Cellulitis of unspecified part of limb Is this a current diagnosis for this admission?: Yes Plan: per hospitalist (7) Pulmonary hypertension Is this a current diagnosis for this admission?: Yes Plan: per cardiology - Notes Notes: case was discussed with Dr. Connors and will reassess
--- NOTE | 2019-05-20 16:32 | PDOC CONSULTATION ---
Consultation Consult Date: 05/20/19 Provider Consulted: ADALID BEEBE History of Present Illness Admission Date/PCP: 05/12/19 14:02 LISSETTE CASTRO MD Patient complains of: Leg ulcers, redness. History of Present Illness: JUJU ANDRADE is a 58 year old male The patient presented with multiple issues including redness and ulceration in the both lower extremities, chiefly right. Past Medical History Cardiac Medical History: Reports: Congestive Heart Failure, Coronary Artery Disease, Hyperlipidema, Hypertension Pulmonary Medical History: Reports: Chronic Obstructive Pulmonary Disease (COPD), Respiratory Failure EENT Medical History: Reports: None Neurological Medical History: Reports: None Endocrine Medical History: Reports: Obesity Renal/ Medical History: Reports: Chronic Kidney Disease GI Medical History: Reports: Gastroesophageal Reflux Disease Musculoskeltal Medical History: Reports: Arthritis Skin Medical History: Reports: None Psychiatric Medical History: Reports: Bipolar Disorder Traumatic Medical History: Reports: None Hematology: Reports: None Infectious Medical History: Reports: None Past Surgical History Past Surgical History: Reports: Coronary Artery Bypass Graft, Valve Replacement Social History Lives with: Alone Smoking Status: Current Every Day Smoker Electronic Cigarette use?: Yes Frequency of Alcohol Use: None Hx Recreational Drug Use: No Hx Prescription Drug Abuse: No - Advance Directive Resuscitation Status: Full Code Family History Family History: Reviewed & Not Pertinent Parental Family History Reviewed: No Children Family History Reviewed: No Sibling(s) Family History Reviewed.: No Medication/Allergy Home Medications: Albuterol Sulfate [Ventolin Hfa 8 gm Mdi] 2 puff IH Q6HP PRN 04/30/19 Furosemide [Lasix 40 mg Tablet] 40 mg PO BID 04/30/19 Omeprazole Magnesium [Prilosec Otc] 40 mg PO DAILY 04/30/19 Paroxetine HCl [Paxil] 10 mg PO DAILY 04/30/19 Quetiapine Fumarate [Quetiapine Fumarate ER] 300 mg PO QPM 04/30/19 Ranitidine HCl [Heartburn Relief] 150 mg PO BID 04/30/19 Rivaroxaban [Xarelto] 2.5 mg PO Q12 04/30/19 Sacubitril/Valsartan [Entresto 24 mg/26 mg Tablet] 1 tab PO Q12 04/30/19 Thiamine HCl [Thiamine 100 mg Tablet] 100 mg PO DAILY 04/30/19 Hydroxyzine Pamoate [Vistaril 25 mg Capsule] 25 mg PO QHS 05/12/19 Multivitamin/Iron/Folic Acid [Centrum Adults Tablet] 1 each PO DAILY 05/12/19 Paroxetine HCl [Paxil] 40 mg PO DAILY 05/12/19 Quetiapine Fumarate [Seroquel Xr] 150 mg PO QPM 05/12/19 Vitamin B Complex/Folic Acid [B-Complex Tablet] 1 tab PO DAILY 05/12/19 Allergies/Adverse Reactions: risperidone [From Risperdal] Allergy (Verified 04/30/19 12:35) trazodone Allergy (Verified 04/30/19 12:35) Physical Exam Vital Signs: Temp Pulse Resp BP Pulse Ox 97.6 F 89 22 H 112/52 L 97 05/20/19 11:11 05/20/19 14:19 05/20/19 15:59 05/20/19 11:11 05/20/19 15:59 Intake & Output 05/19/19 05/20/19 05/21/19 06:59 06:59 06:59 Intake Total 1352 1440 50 Output Total 675 375 Balance 677 1065 50 Weight 125.9 kg 127.6 kg 127.6 kg Additional comments: Constitutional: Well-developed well-nourished gentleman, increased body mass index. No apparent acute distress, somnolent. Eyes: Mucous membranes pink and moist, difficult to examine otherwise due to poor cooperation. Cardiac: Heart sounds 1 and 2 normal, no murmurs. Respiratory: breath sounds are present bilaterally, normal. On oxygen, mask rebreather, slightly increased respiratory effort, at rest. Psychiatric: Judgment, memory, insight are difficult to assess, the patient is hard of hearing and currently very somnolent. Lower extremities show decreased l range of movement. Pulses not felt at the dorsalis pedis artery. Capillary refill normal. No cyanosis noted. Some muscle wasting noted. Hyperpigmentation with firm, fragile skin in both legs. Ulcer on the dorsum of the right foot measuring about 6 x 7 cm, partially granulating. Dry eschar about 2 cm across in the right great toe. Results Laboratory Results: 05/20/19 04:27 05/20/19 04:27 05/19/19 05/20/19 05/20/19 17:45 04:27 04:27 WBC 9.3 RBC 4.27 L Hgb 10.9 L Hct 33.1 L MCV 78 L MCH 25.5 L MCHC 32.8 RDW 22.6 H Plt Count 161 Carbonic Acid HCO3/H2CO3 Ratio ABG pH ABG pCO2 ABG pO2 ABG HCO3 ABG O2 Saturation ABG Base Excess FiO2 Sodium 137.5 Potassium 4.7 Chloride 104 Carbon Dioxide 22 Anion Gap 12 BUN 122 H D Creatinine 3.71 H Est GFR ( Amer) 20 L Glucose 93 Calcium 8.4 Magnesium 3.3 H Total Bilirubin 1.4 H AST 25 Alkaline Phosphatase 91 Total Protein 5.8 L Albumin 3.2 L Urine Color Cancelled Urine Appearance Cancelled Urine pH Cancelled Ur Specific [place] Cancelled Urine Protein Cancelled Urine Glucose (UA) Cancelled Urine Ketones Cancelled Urine Blood Cancelled Urine Nitrite Cancelled Ur Leukocyte Esterase Cancelled Urine WBC (Auto) Cancelled Urine RBC (Auto) Cancelled 05/20/19 05/20/19 09:55 10:40 WBC RBC Hgb Hct MCV MCH MCHC RDW Plt Count Carbonic Acid 1.19 HCO3/H2CO3 Ratio 16:1 ABG pH 7.32 L ABG pCO2 39.7 ABG pO2 59.0 L ABG HCO3 20.0 ABG O2 Saturation 88.7 L ABG Base Excess -5.6 FiO2 6L Sodium Potassium Chloride Carbon Dioxide Anion Gap BUN Creatinine Est GFR ( Amer) Glucose Calcium Magnesium Total Bilirubin AST Alkaline Phosphatase Total Protein Albumin Urine Color BROWN Urine Appearance SLIGHTLY-CLOUDY Urine pH 5.0 Ur Specific [place] 1.016 Urine Protein 100 H Urine Glucose (UA) NEGATIVE Urine Ketones NEGATIVE Urine Blood LARGE H Urine Nitrite NEGATIVE Ur Leukocyte Esterase NEGATIVE Urine WBC (Auto) >182 Urine RBC (Auto) >182 05/15/19 09:32 Blood Blood Culture - Final NO GROWTH IN 5 DAYS 05/15/19 08:24 Blood Blood Culture - Final NO GROWTH IN 5 DAYS 05/12/19 05/12/19 05/13/19 12:00 18:31 00:16 Creatine Kinase CK-MB (CK-2) Troponin I 0.039 0.041 0.039 NT-Pro-B Natriuret Pep 8970 H 05/13/19 05/14/19 05/19/19 09:35 04:26 17:45 Creatine Kinase 230 H CK-MB (CK-2) 4.88 H Troponin I 0.047 NT-Pro-B Natriuret Pep 14122 H Impressions: Renal Artery Duplex 05/20/19 06:00 IMPRESSION: Nondiagnostic study Chest X-Ray 05/20/19 09:58 IMPRESSION: Pulmonary edema pattern Assessment & Plan - Diagnosis (1) Stasis dermatitis of both legs Is this a current diagnosis for this admission?: Yes (2) Acute respiratory failure with hypoxia Is this a current diagnosis for this admission?: Yes (3) Cellulitis, leg Qualifiers: Laterality: unspecified laterality Qualified Code(s): L03.119 - Cellulitis of unspecified part of limb Is this a current diagnosis for this admission?: Yes (4) Foot ulcer, right Qualifiers: Non-pressure ulcer stage: unspecified non-pressure ulcer stage Qualified Code(s): L97.519 - Non-pressure chronic ulcer of other part of right foot with unspecified severity Is this a current diagnosis for this admission?: Yes (5) CKD (chronic kidney disease) Qualifiers: Chronic kidney disease stage: stage 3 (moderate) Qualified Code(s): N18.3 - Chronic kidney disease, stage 3 (moderate) (7) Hypertension Qualifiers: Hypertension type: essential hypertension Qualified Code(s): I10 - Essential (primary) hypertension Is this a current diagnosis for this admission?: Yes - Plan Summary Plan Summary: In this patient with multiple severe acute medical problems requiring continued hospitalization, there is chronic stasis dermatitis in both lower extremities. Also some superficial ulceration on the right. There is also arterial insufficiency of a moderate degree. The lower extremity problems can be dealt with as an outpatient in the wound clinic. For the time being current therapy, which is application of Xeroform every 2 to 3 days to the existing wounds, after cleaning with saline is a ppropriate. I will follow the patient as needed only, while inpatient.
[2019-05-20] MEDS: HEPARIN SOD (PORCINE) 5,000 UNIT/ML 1 ML VIAL SUBCUT SCH ×2 (17:00→21:45)
--- NOTE | 2019-05-20 17:05 | Operative Report ---
Nonrecallable Operative Report DATE OF SURGERY: 05/20/19 PREOPERATIVE DIAGNOSIS: Renal failure POSTOPERATIVE DIAGNOSIS: Renal failure OPERATION: Dialysis catheter placement right femoral vein SURGEON: CLARKE BESS ANESTHESIA: Local TISSUE REMOVED OR ALTERED: None COMPLICATIONS: None ESTIMATED BLOOD LOSS: 20 cc INTRAOPERATIVE FINDINGS: See note PROCEDURE: Procedure note after appropriate timeout site verification the procedure commenced. The right groin was prepped and draped in usual sterile fashion with chlorhexidine prep. Using 1% lidocaine plain a skin wheal was raised in the right groin just above the femoral triangle. Using a 16-gauge needle the right femoral vein was accessed. Through the needle a J-wire was placed into the inferior vena cava. A small skin fiona was made with a 15 blade. A dilator was placed over the wire into the femoral vein. The triple-lumen dialysis catheter was placed over the wire into the femoral vein and then manipulated up into the inferior vena cava. The vein flushed and withdrew very easily. All 3 lm were then irrigated with a saline solution. The cath was then affixed to the skin with 2 stitches of 3-0 nylon. A sterile dressing was applied which completed the procedure. Estimated blood loss was 20 cc.
[2019-05-20] MEDS ORDERED: DOBUTAMINE HCL/D5W 500 MG/250 ML RTUINJ IV PRN (17:20)
[2019-05-20] MEDS ORDERED: DOPAMINE HCL/DEXTROSE 5%-WATER 800 MG/250 ML RTUINJ IV PRN (17:27)
--- NOTE | 2019-05-20 17:40 | PDOC PROGRESS REPORT ---
Subjective Progress Note for:: 05/20/19 Subjective:: Patient this morning seemed more confused. He is very hard of hearing so it is often difficult to communicate with patient in the absence of any hearing aids. I discussed with his friend/neighbor at bedside Mr. De Leon who states that patient is completely estranged with family and his only family member is his daughter who does not want anything to do with him. Mr. De Leon states that he is the only involved with patient's care. Patient notably has an emergency contact listed. Reason For Visit: HEART FAILURE Physical Exam Vital Signs: Temp Pulse Resp BP Pulse Ox 98.4 F 98 22 H 85/55 L 97 05/20/19 15:56 05/20/19 15:56 05/20/19 15:59 05/20/19 15:56 05/20/19 15:59 Intake & Output 05/19/19 05/20/19 05/21/19 06:59 06:59 06:59 Intake Total 1352 1440 50 Output Total 675 375 Balance 677 1065 50 Weight 125.9 kg 127.6 kg 127.6 kg General appearance: PRESENT: hard of hearing - Extremely hard of hearing, morbidly obese Mouth exam: PRESENT: neck supple Neck exam: PRESENT: other - Hard to appreciate JVD given body habitus Respiratory exam: PRESENT: crackles, symmetrical, unlabored. ABSENT: tachypnea, wheezes Cardiovascular exam: PRESENT: RRR, +S1, +S2. ABSENT: tachycardia GI/Abdominal exam: PRESENT: soft. ABSENT: rebound, rigid, tenderness Extremities exam: PRESENT: +2 edema, other - Excoriations over his right foot with crusted blood. Dusky appearance of both lower extremities. Neurological exam: PRESENT: alert, awake, other - To assess patient's orientation and to fully assess patient's complete mental status given that he is very hard of hearing. This morning, patient was grunting and moaning in bed which is unusual for patient Results Laboratory Results: 05/20/19 04:27 05/20/19 04:27 05/19/19 05/20/19 05/20/19 17:45 04:27 04:27 WBC 9.3 RBC 4.27 L Hgb 10.9 L Hct 33.1 L MCV 78 L MCH 25.5 L MCHC 32.8 RDW 22.6 H Plt Count 161 Carbonic Acid HCO3/H2CO3 Ratio ABG pH ABG pCO2 ABG pO2 ABG HCO3 ABG O2 Saturation ABG Base Excess FiO2 Sodium 137.5 Potassium 4.7 Chloride 104 Carbon Dioxide 22 Anion Gap 12 BUN 122 H D Creatinine 3.71 H Est GFR ( Amer) 20 L Glucose 93 Calcium 8.4 Magnesium 3.3 H Total Bilirubin 1.4 H AST 25 Alkaline Phosphatase 91 Total Protein 5.8 L Albumin 3.2 L Urine Color Cancelled Urine Appearance Cancelled Urine pH Cancelled Ur Specific [place] Cancelled Urine Protein Cancelled Urine Glucose (UA) Cancelled Urine Ketones Cancelled Urine Blood Cancelled Urine Nitrite Cancelled Ur Leukocyte Esterase Cancelled Urine WBC (Auto) Cancelled Urine RBC (Auto) Cancelled 05/20/19 05/20/19 09:55 10:40 WBC RBC Hgb Hct MCV MCH MCHC RDW Plt Count Carbonic Acid 1.19 HCO3/H2CO3 Ratio 16:1 ABG pH 7.32 L ABG pCO2 39.7 ABG pO2 59.0 L ABG HCO3 20.0 ABG O2 Saturation 88.7 L ABG Base Excess -5.6 FiO2 6L Sodium Potassium Chloride Carbon Dioxide Anion Gap BUN Creatinine Est GFR ( Amer) Glucose Calcium Magnesium Total Bilirubin AST Alkaline Phosphatase Total Protein Albumin Urine Color BROWN Urine Appearance SLIGHTLY-CLOUDY Urine pH 5.0 Ur Specific [place] 1.016 Urine Protein 100 H Urine Glucose (UA) NEGATIVE Urine Ketones NEGATIVE Urine Blood LARGE H Urine Nitrite NEGATIVE Ur Leukocyte Esterase NEGATIVE Urine WBC (Auto) >182 Urine RBC (Auto) >182 05/15/19 09:32 Blood Blood Culture - Final NO GROWTH IN 5 DAYS 05/15/19 08:24 Blood Blood Culture - Final NO GROWTH IN 5 DAYS 05/12/19 05/12/19 05/13/19 12:00 18:31 00:16 Creatine Kinase CK-MB (CK-2) Troponin I 0.039 0.041 0.039 NT-Pro-B Natriuret Pep 8970 H 05/13/19 05/14/19 05/19/19 09:35 04:26 17:45 Creatine Kinase 230 H CK-MB (CK-2) 4.88 H Troponin I 0.047 NT-Pro-B Natriuret Pep 89990 H Impressions: Renal Artery Duplex 05/20/19 06:00 IMPRESSION: Nondiagnostic study Chest X-Ray 05/20/19 09:58 IMPRESSION: Pulmonary edema pattern Assessment and Plan - Diagnosis (1) Acute respiratory failure with hypoxia Is this a current diagnosis for this admission?: Yes Plan: Secondary to acute on chronic systolic heart failure with pulmonary edema noted on chest x-ray today and severe pulmonary hypertension as well as underlying COPD. Currently on 5-6L [place] Nocturnal BiPAP (2) Acute exacerbation of congestive heart failure Qualifiers: Heart failure type: systolic Qualified Code(s): I50.23 - Acute on chronic systolic (congestive) heart failure Is this a current diagnosis for this admission?: Yes Plan: Acute exacerbation of systolic heart failure NYHA stage III. 05/12/2019 2D echo LVEF 25%. Grade 1/4 mild diastolic dysfunction. RSVP 96-100 mmHg. proBNP is 12,700. Chest x-ray revealing pulmonary edema. Initially on dobutamine and nitroglycerin drip have been discontinued. Nitroglycerin patch discontinued this morning due to's soft blood pressures. Patient did not diurese much after receiving 40 mg of IV Lasix today and as such will be challenged with 100 mg If patient becomes hypotensive again, will need to go on dopamine drip Case discussed with supervisor sewer maintenance (3) Cellulitis, leg Qualifiers: Laterality: unspecified laterality Qualified Code(s): L03.119 - Cellulitis of unspecified part of limb Is this a current diagnosis for this admission?: Yes Plan: Leukocytosis resolved Wound culture growing gram-positive cocci in clusters and Acinetobacter Baumannii sensitive to beta lactams, carboplatin, and quinolones. Currently on cefepime for coverage of Acinetobacter, Staphylococcus and Pseudomonas from wound culture Day 10/19 antibiotics. Day 6 IV cefepime. Received 3 days of IV clindamycin. Received 3 days of p.o. Keflex. (4) Physical deconditioning Is this a current diagnosis for this admission?: Yes Plan: Due to multiple chronic underlying end-stage comorbidities. Unlikely patient will be able to take care of herself independently. Patient is a good candidate for long-term placement. Discharge planning aware. (5) Acute on chronic renal failure Qualifiers: Chronic kidney disease stage: stage 3 (moderate) Is this a current diagnosis for this admission?: Yes Plan: Patient continues to have worsening renal function and now with uremia and often having metabolic encephalopathy. Baseline creatinine seems to be around 1.6-1.8 but currently 3.7 with a BUN of 120. Nephrology consulted and recommending Lasix challenge and dialysis. I have discussed with Dr. Titus and I believe that patient would certainly benefit from dialysis at this point. Dialysis catheter placed. (6) COPD (chronic obstructive pulmonary disease) Qualifiers: COPD type: COPD with acute exacerbation Qualified Code(s): J44.1 - Chronic obstructive pulmonary disease with (acute) exacerbation Is this a current diagnosis for this admission?: Yes Plan: Nebs as needed. Nocturnal BiPAP. Patient's neighbor confirms that he uses oxygen at home but does not know how many liters. (7) Peripheral vascular disease Is this a current diagnosis for this admission?: Yes Plan: Severe bilateral lower extremity stasis dermatitis, cellulitis complicated by PVD. Arterial Doppler positive for moderate hemodynamically significant lesion in the bilateral lower extremities on duplex imaging, focal stenosis identified. Significant arterial obstructive disease noted in the popliteal on the right infrageniculate vessel on the left. Renal arterial duplex show no significant renal artery stenosis. Vascular surgeon consulted and recommending outpatient follow-up. (8) Pulmonary hypertension Is this a current diagnosis for this admission?: Yes Plan: Severe pulmonary hypertension. RSVP 100 mmHg. Plan as per above. - Time Time Spent with patient: 15-24 minutes
--- NOTE | 2019-05-20 20:32 | PDOC PROGRESS REPORT ---
Subjective Progress Note for:: 05/20/19 Subjective:: I came to reevaluate the patient this afternoon after he was seen by our physician players assistant, Willian Barton this morning. Patient is a 58-year-old gentleman with history of coronary artery disease, congestive heart failure, hypertension, chronic kidney disease, COPD, depression and history of amphetamine abuse who was admitted on May 12, 2019 because of shortness of breath. Communication was really difficult with this patient due to his severe hearing loss and declining mental status today. So most of the information I gathered are from the patient's records. Patient presented with 1 week history of worsening shortness of breath associated with orthopnea, ab dominal distention and worsening bilateral lower extremity edema. He was brought into the emergency room via EMS and was found to be hypoxic, hypertensive with blood pressure of 197/105, and a chest x-ray suggestive of pulmonary vascular congestion. Admitting diagnosis includes acute exacerbation of systolic and diastolic congestive heart failure, COPD, acute respiratory failure and lower extremity cellulitis. Initial treatment included Lasix with varying doses ranging from 20 mg to 40 mg IV every 6 to 8 hours between May 11 to May 16. Echocardiogram done on May 14 showed left ventricular ejection fraction of 25%, grade 1/4 mild diastolic dysfunction, severe global hypokinesis, and severe pulmonary hypertension. Radarman, Dr. Lara was also consulted who started the patient on dobutamine drip given from May 14 to May 17. Subsequently the patient's IV diuretics were discontinued due to worsening kidney function and the patient was given minimal IV fluids initially increased to 100 mL an hour yesterday until this morning. Other treatments include IV antibiotics for the cellulitis. Since admission the patient had received a dose of IV Zosyn, a dose of IV vancomycin, couple of days of IV Ancef, IV clindamycin, and is currently on IV cefepime. A right foot wound culture showed polymicrobial growth. For the COPD the patient was also given IV methylprednisolone from May 11 to May 17. In terms of the kidney function the patient was admitted with baseline kidney function with a BUN of 28 and a creatinine of 1.6. Records showed that the patient's baseline creatinine ranges anywhere between 1.6-1.8 at steady state. Patient's kidney function has progressively gotten worse since admission with all the above treatment. Today his BUN is 122 with creatinine of 3.71. His urinalysis showed protein of 100, large blood, WBC greater than 182 and RBC greater than 182. His urine appears to be very dark tea colored today. His urine output has also declined for the last 24 hours with a urine output of only 375 mL. Patient's blood pressure also started to go down as low as 85/52 for the past 24 hours and still currently relatively low. Patient is breathing seems to have gotten worse requiring BiPAP this afternoon. His mental status has also deteriorated. According to his nurse Luzmaria he was more awake yesterday compared to today. He was barely answering any questions today when I saw him. He was just moaning and groaning and his hearing loss does not really help. There was obvious asterixis and involuntary jerking of his extremities when I saw him. Reason For Visit: HEART FAILURE Physical Exam Vital Signs: Temp Pulse Resp BP Pulse Ox 97.6 F 89 18 112/52 L 95 05/20/19 11:11 05/20/19 14:19 05/20/19 14:19 05/20/19 11:11 05/20/19 14:19 Intake & Output 05/19/19 05/20/19 05/21/19 06:59 06:59 06:59 Intake Total 1352 1440 50 Output Total 675 375 Balance 677 1065 50 Weight 125.9 kg 127.6 kg 127.6 kg Exam: General appearance: PRESENT: Patient in moderate respiratory distress requiring BiPAP, currently not answering much questions except for the moaning and groaning, well-developed, well-nourished Head exam: PRESENT: atraumatic, normocephalic Eye exam: PRESENT: conjunctiva pale, PERRLA. ABSENT: scleral icterus Neck exam: ABSENT: JVD Respiratory exam: PRESENT: Coarse breath sounds. ABSENT: crackles, rales, rhonchi, unlabored, wheezes Cardiovascular exam: PRESENT: Regular rate rhythm -+S1, +S2. ABSENT: diastolic murmur, systolic murmur, pericardial rub GI/Abdominal exam: PRESENT: normal bowel sounds, soft. Obese with subcutaneous abdominal edema ABSENT: guarding, mass, tenderness Extremities exam: [Grade 2 bilateral lower extremity edema up to the thighs Neurological exam: PRESENT: Lethargic and unable to verbalize much. Positive observed asterixis Skin exam: PRESENT: dry, warm, right foot cellulitis currently with dressing. Cardiovascular exam: PRESENT: +S1, +S2 GI/Abdominal exam: PRESENT: ascites, distended, firm, tenderness. ABSENT: guarding, soft Results Laboratory Results: 05/20/19 04:27 05/20/19 04:27 05/19/19 05/20/19 05/20/19 17:45 04:27 04:27 WBC 9.3 RBC 4.27 L Hgb 10.9 L Hct 33.1 L MCV 78 L MCH 25.5 L MCHC 32.8 RDW 22.6 H Plt Count 161 Carbonic Acid HCO3/H2CO3 Ratio ABG pH ABG pCO2 ABG pO2 ABG HCO3 ABG O2 Saturation ABG Base Excess FiO2 Sodium 137.5 Potassium 4.7 Chloride 104 Carbon Dioxide 22 Anion Gap 12 BUN 122 H D Creatinine 3.71 H Est GFR ( Amer) 20 L Glucose 93 Calcium 8.4 Magnesium 3.3 H Total Bilirubin 1.4 H AST 25 Alkaline Phosphatase 91 Total Protein 5.8 L Albumin 3.2 L Urine Color Cancelled Urine Appearance Cancelled Urine pH Cancelled Ur Specific [place] Cancelled Urine Protein Cancelled Urine Glucose (UA) Cancelled Urine Ketones Cancelled Urine Blood Cancelled Urine Nitrite Cancelled Ur Leukocyte Esterase Cancelled Urine WBC (Auto) Cancelled Urine RBC (Auto) Cancelled 05/20/19 05/20/19 09:55 10:40 WBC RBC Hgb Hct MCV MCH MCHC RDW Plt Count Carbonic Acid 1.19 HCO3/H2CO3 Ratio 16:1 ABG pH 7.32 L ABG pCO2 39.7 ABG pO2 59.0 L ABG HCO3 20.0 ABG O2 Saturation 88.7 L ABG Base Excess -5.6 FiO2 6L Sodium Potassium Chloride Carbon Dioxide Anion Gap BUN Creatinine Est GFR ( Amer) Glucose Calcium Magnesium Total Bilirubin AST Alkaline Phosphatase Total Protein Albumin Urine Color BROWN Urine Appearance SLIGHTLY-CLOUDY Urine pH 5.0 Ur Specific [place] 1.016 Urine Protein 100 H Urine Glucose (UA) NEGATIVE Urine Ketones NEGATIVE Urine Blood LARGE H Urine Nitrite NEGATIVE Ur Leukocyte Esterase NEGATIVE Urine WBC (Auto) >182 Urine RBC (Auto) >182 05/15/19 09:32 Blood Blood Culture - Final NO GROWTH IN 5 DAYS 05/15/19 08:24 Blood Blood Culture - Final NO GROWTH IN 5 DAYS 05/12/19 05/12/1905/12/20 12:00 18:31 00:16 Creatine Kinase CK-MB (CK-2) Troponin I 0.039 0.041 0.039 NT-Pro-B Natriuret Pep 8970 H 05/13/19 05/14/19 05/19/19 09:35 04:26 17:45 Creatine Kinase 230 H CK-MB (CK-2) 4.88 H Troponin I 0.047 NT-Pro-B Natriuret Pep 51811 H Impressions: Renal Artery Duplex 05/20/19 06:00 IMPRESSION: Nondiagnostic study Chest X-Ray 05/20/19 09:58 IMPRESSION: Pulmonary edema pattern Assessment & Plan - Diagnosis (1) Acute kidney injury superimposed on chronic kidney disease Is this a current diagnosis for this admission?: Yes Plan: This is most likely secondary to acute tubular necrosis currently oliguric with uremic symptoms. Multifactorial causes include poor renal perfusion secondary to congestive heart failure with very low ventricular ejection fraction, diuresis, hypertension, and concurrent infection. Patient has uremic symptoms including acute metabolic encephalopathy, asterixis and worsening pulmonary edema. These are all indications for acute renal replacement therapy. Patient would benefit from acute renal replacement therapy to hopefully alleviate all the above conditions. Apparently the patient has a daughter who is estranged to him and has no relationship at all. Patient has a good friend and neighbor . Connor De Leon who is the only one who is looking after the patient. I talked to Mr. De Leon at bedside and he indicated to me that couple of days ago when he asked the patient regarding possible DNR, patient indicated to him that he would want to continue treatment and would like to hang around for some time yet so Mr. De Leon has the impression that the patient would most likely agree to dialysis treatment if this is the one treatment that would benefit him. I explained how dialysis is done including catheter placement, its benefits as well as his complications including infection, bleeding, and hemodynamic instability to include cardiac arrest during dialysis treatment. Mr. De Leon has agreed to do dialysis for his friend. I also talked to Dr. Cantu since we do not have a real next of kin who can decide for the patient. We both agreed that dialysis treatment would probably benefit the patient at this point since all possible treatments has been given to the patient for the last few days since admission. So I have called and consulted our surgeon, Dr. Belzberg to place a temporary dialysis catheter for a plan dialysis treatment tomorrow morning. Patient will be planned to be dialyzed in the ICU since he is requiring BiPAP. Meanwhile I am going to patient Lasix 100 mg x 1 dose. Discontinue all IV fluids at this time. Continue BiPAP. (2) Metabolic encephalopathy Is this a current diagnosis for this admission?: Yes Plan: This is most likely secondary to uremia and hypoxia. (3) Acute combined systolic and diastolic congestive heart failure, NYHA class 4 Is this a current diagnosis for this admission?: Yes Plan: Patient has left ventricular ejection fraction of 25% and grade 1/4 diastolic dysfunction. Patient has been on IV dobutamine drip IV Lasix for the last few days. Despite all this the patient continues to be short of breath. Cardiology is, Dr. Lara also following the patient. (4) Acute respiratory failure with hypoxia Is this a current diagnosis for this admission?: Yes Plan: This is secondary to saturation of congestive heart failure with increasing pulmonary edema. (5) Pulmonary hypertension Is this a current diagnosis for this admission?: Yes Plan: Very severe. (6) Cellulitis, leg Qualifiers: Laterality: unspecified laterality Qualified Code(s): L03.119 - Cellulitis of unspecified part of limb Is this a current diagnosis for this admission?: Yes Plan: On IV antibiotics. (7) Foot ulcer, right Qualifiers: Non-pressure ulcer stage: unspecified non-pressure ulcer stage Qualified Code(s): L97.519 - Non-pressure chronic ulcer of other part of right foot with unspecified severity Is this a current diagnosis for this admission?: Yes (8) Stasis dermatitis of both legs Is this a current diagnosis for this admission?: Yes (9) COPD (chronic obstructive pulmonary disease) Qualifiers: COPD type: COPD with acute exacerbation Qualified Code(s): J44.1 - Chronic obstructive pulmonary disease with (acute) exacerbation Is this a current diagnosis for this admission?: Yes (10) Peripheral vascular disease Is this a current diagnosis for this admission?: Yes Plan: Arterial duplex showed moderately hemodynamically significant lesions in bilateral lower extremities. (11) Hearing loss Is this a current diagnosis for this admission?: Yes - Notes Notes: Discussed the case with the patient's neighbor, Mr. Connor De Leon as above. Also discussed the case with Dr. Cantu. - Time Time with patient: Greater than 35 minutes
--- NOTE | 2019-05-20 21:48 | Progress Note ---
Provider Note Provider Note: Cardiology PROGRESS NOTE by Dr. Radha Lara on 05/20/2019. SUBJECTIVE: The patient continues to be short of breath requiring BiPAP. His urine output is decreasing and his creatinine is rising. He has been seen by nephrology. The patient denies chest pain discomfort. He has orthopnea. There is no arrhythmia seen on the monitor. PHYSICAL EXAMINATION: The patient appears to be chronically built and moderately obese. Selected Entries 05/20/19 05/20/19 07:42 08:30 Temperature 97.5 F Temperature Axillary Source Pulse Rate 83 Respiratory 14 Rate Blood Pressure 128/55 H Blood Pressure 79 Mean BP Location Left Arm BP Position Supine O2 Sat by Pulse 97 Oximetry Fraction of 44 Inspired Oxygen (FIO2) Oxygen Flow 6 Rate Oxygen Delivery Bipap Method HEAD: Head is atraumatic normocephalic. Eyes: Pupils are equal round regular reactive light accommodation extraocular movements are normal there is no congenital pallor there is no scleral icterus. Ears: External auditory canals are clear, there are no lesions of the pinna. Nose: No deviated nasal septum and no inflammation of the nasal mucous membrane. Mouth: Mucous membranes of mouth are moist tongue is moist there is no ulcers there is no bleeding from the gums. Throat: There is no redness of the oropharynx there is no exudates. Skin: There is no petechia or ecchymosis there is no skin lesions or skin rashes. Neck: Neck is supple there is JVD present. Carotids equal there is no bruit there is no lymphadenopathy there is no neck stiffness. There is no goiter trachea central lungs: Lungs show diminished air entry and prolonged expiration. Scattered rhonchi and wheezing present. There is bibasilar rales of CHF. There is no chest wall tenderness. HEART: S1-S2 is heard there is no S3 gallop there is no S4 gallop S1 is of normal intensity. There is no rub. The systolic murmur of MR and TR. There is no prosthetic valve clicks heard. Abdomen: Abdomen is soft, mildly distended, no definite ascites. There is no hepatosplenomegaly. Bowel sounds well heard there is no tender areas of masses. There is no rebound guarding or rigidity. Extremities: Femorals are slightly diminished, there is no bruits. Leg pulses are diminished. There is trace 2- edema, with venous stasis dermatitis. There is no DVT or cellulitis there is no cyanosis or clubbing there is no DVT or cellulitis. There is no calf tenderness. ALARM MECHANIC: The patient is awake alert oriented 3 with no focal deficits. But in spite of this he has slow mentation. Psychiatric: The patient judgment and insight are intact and his affect is flat. The patient's 24-hour intake is 1440 mL. His 24-hour output is 375 mL. Labs- All tests 24 hr 05/20/19 05/20/19 05/20/19 04:27 04:27 09:55 WBC 9.3 RBC 4.27 L Hgb 10.9 L Hct 33.1 L MCV 78 L MCH 25.5 L MCHC 32.8 RDW 22.6 H Plt Count 161 Carbonic Acid HCO3/H2CO3 Ratio ABG pH ABG pCO2 ABG pO2 ABG HCO3 ABG Total CO2 ABG O2 Saturation ABG Base Excess FiO2 Sodium 137.5 Potassium 4.7 Chloride 104 Carbon Dioxide 22 Anion Gap 12 BUN 122 H D Creatinine 3.71 H Est GFR ( Amer) 20 L Est GFR (MDRD) Non-Af 17 L Glucose 93 POC Glucose Calcium 8.4 Magnesium 3.3 H Total Bilirubin 1.4 H Direct Bilirubin 0.9 H Neonat Total Bilirubin Not Reportable Neonat Direct Bilirubin Not Reportable Neonat Indirect Bili Not Reportable AST 25 ALT 11 Alkaline Phosphatase 91 Total Protein 5.8 L Albumin 3.2 L Urine Color BROWN Urine Appearance SLIGHTLY-CLOUDY Urine pH 5.0 Ur Specific [place] 1.016 Urine Protein 100 H Urine Glucose (UA) NEGATIVE Urine Ketones NEGATIVE Urine Blood LARGE H Urine Nitrite NEGATIVE Urine Bilirubin NEGATIVE Urine Urobilinogen NEGATIVE Ur Leukocyte Esterase NEGATIVE Urine WBC (Auto) >182 Urine RBC (Auto) >182 Urine Bacteria (Auto) 3+ Urine WBC Clumps MANY U Non-Squamous Epis Auto 3 Urine Mucus (Auto) OCC Urine Ascorbic Acid NEGATIVE 05/20/19 05/20/19 10:40 18:30 WBC RBC Hgb Hct MCV MCH MCHC RDW Plt Count Carbonic Acid 1.19 HCO3/H2CO3 Ratio 16:1 ABG pH 7.32 L ABG pCO2 39.7 ABG pO2 59.0 L ABG HCO3 20.0 ABG Total CO2 21.3 L ABG O2 Saturation 88.7 L ABG Base Excess -5.6 FiO2 6L Sodium Potassium Chloride Carbon Dioxide Anion Gap BUN Creatinine Est GFR ( Amer) Est GFR (MDRD) Non-Af Glucose POC Glucose 97 Calcium Magnesium Total Bilirubin Direct Bilirubin Neonat Total Bilirubin Neonat Direct Bilirubin Neonat Indirect Bili AST ALT Alkaline Phosphatase Total Protein Albumin Urine Color Urine Appearance Urine pH Ur Specific [place] Urine Protein Urine Glucose (UA) Urine Ketones Urine Blood Urine Nitrite Urine Bilirubin Urine Urobilinogen Ur Leukocyte Esterase Urine WBC (Auto) Urine RBC (Auto) Urine Bacteria (Auto) Urine WBC Clumps U Non-Squamous Epis Auto Urine Mucus (Auto) Urine Ascorbic Acid Chest X-Ray 05/12/19 11:53 IMPRESSION: No acute cardiopulmonary process. Chest X-Ray 05/14/19 00:00 IMPRESSION: No acute cardiopulmonary process. Chest X-Ray 05/15/19 15:34 IMPRESSION: Right jugular central line tip SVC. No Pneumothorax Renal Artery Duplex 05/20/19 06:00 IMPRESSION: Nondiagnostic study Chest X-Ray 05/20/19 09:58 IMPRESSION: Pulmonary edema pattern IMPRESSION/RECOMMENDATION: 1. Acute respiratory failure secondary to combination of acute on chronic systolic heart failure, acute renal failure causing volume overload, acute exac erbation of COPD, and severe pulmonary hypertension. Continue BiPAP and oxygen support. 2. Acute on chronic systolic heart failure. Patient has been placed on fluid restriction of 1500 mL each 24 hours. The patient is off inotropes and IV nitroglycerin. He is on topical nitrates and hydralazine. His Entresto has been stopped, but still the patient renal function is deteriorating. Will get s tudies for renal artery stenosis given the fact that the patient has renal failure and significant peripheral vascular disease. 3. Acute exacerbation COPD: Consider antibiotics. Continue respiratory treatments. This is improved. 4. Hypertension: At present blood pressure reasonable7 5. Severe pulmonary hypertension: The dobutamine the IV nitroglycerin and hydralazine should help. Later we will see the feasibility of starting sildenafil. 6. Acute on chronic renal failure. Avoid nephrotoxic drugs the patient's Lasix intravenously has been stopped due to worsening creatinine. Will stop the patient's Entresto. We will continue patient's hydralazine. Nephrology consult has been placed by the hospitalist. In view of the patient's rising creatinine and decreasing urine output nephrology has decided to initiate dialysis on this patient. 7. Bipolar disorder 8. Tobacco abuse disorder. 9 coronary artery disease: History of coronary bypass graft surgery: No angina and troponin so far is not elevated. 10. Peripheral vascular disease: This will be addressed later on. 11. History of valvular repair: Details not available. Try to contact [facility] but they say they have not heard of the patient, and have no records on him. 12. Severe hearing loss: Occasions reviewed. Medical regimen and management plan discussed with attending physician. Discussed with nephrology. Medical decision making is of high complexity. 40 minutes spent as patient more than 50% time spent in direct patient care. Spoke to the patient's very close friend and resumed brother Mr. Connor De Leon.. Will follow.
[2019-05-20] MEDS: QUETIAPINE FUMARATE 300 MG PO SCH (22:00)
[2019-05-20] MEDS ORDERED: TUBERCULIN,PURIF.PROT.DERIV. 5 TU/0.1 ML TEST 1 ML VIAL ID ONE (23:00)
[2019-05-21 04:38] LABS: HEMATOCRIT 33.5 % (37.9-51.0); HEMOGLOBIN 10.7 g/dL (13.5-17.0); MEAN CORPUSCULAR HEMOGLOBIN 25.3 pg (27.0-33.4); MEAN CORPUSCULAR VOLUME 79 fl (80-97); PLATELET COUNT 145 10^3/uL (150-450); RED BLOOD COUNT 4.23 10^6/uL (4.35-5.55); RED CELL DISTRIBUTION WIDTH 22.8 % (11.5-14.0); WHITE BLOOD COUNT 10.1 10^3/uL (4.0-10.5)
[2019-05-21 05:00] LABS: ANION GAP 14 (5-19); CALCIUM 8.6 mg/dL (8.4-10.2); CARBON DIOXIDE 22 mmol/L (22-30); CHLORIDE 105 mmol/L (98-107); GLUCOSE 96 mg/dL (75-110); PHOSPHORUS 6.9 mg/dL (2.5-4.5); POTASSIUM 4.6 mmol/L (3.6-5.0)
[2019-05-21] MEDS ORDERED: HEPARIN SOD (PORCINE) 1,000 UNIT/ML 10 ML VIAL IV PRN (05:00)
[2019-05-21] MEDS ORDERED: NORMAL SALINE 1000 ML 1,000 ML IV PRN (05:00)
[2019-05-21 05:02] LABS: ABSOLUTE LYMPHOCYTES# (MANUAL) 0.5 10^3/uL (0.5-4.7); ABSOLUTE MONOCYTES # (MANUAL) 0.3 10^3/uL (0.1-1.4); BASOPHILS % (MANUAL) 0 % (0-2); EOSINOPHILS % (MANUAL) 1 % (0-6); LYMPHOCYTES % (MANUAL) 5 % (13-45); MONOCYTES % (MANUAL) 3 % (3-13); SEGMENTED NEUTROPHILS % (MAN) 91 % (42-78); TOTAL CELLS COUNTED 100
[2019-05-21 05:03] LABS: ANISOCYTOSIS 3+; PLATELET COMMENT DECREASED
[2019-05-21] MEDS: HEPARIN SOD (PORCINE) 5,000 UNIT/ML 1 ML VIAL SUBCUT SCH ×3 (05:08→21:49)
[2019-05-21 05:10] LABS: BLOOD UREA NITROGEN 131 mg/dL (7-20)
[2019-05-21] MEDS: PANTOPRAZOLE SODIUM 40 MG TABLET.DR PO SCH (05:31)
[2019-05-21] MEDS: IPRATROPIUM/ALBUTEROL 0.5-2.5 MG/3 ML AMPUL NEB SCH ×3 (07:53→20:41)
[2019-05-21] MEDS: CEFEPIME 1 GM/D5W RTU 1 GM/50 ML RTUPB IV SCH (13:26)
[2019-05-21] MEDS: ASPIRIN 81 MG TABLET, ENT COATED PO SCH (13:27)
[2019-05-21] MEDS: QUETIAPINE FUMARATE 150 MG PO SCH (13:28)
[2019-05-21] MEDS: PAROXETINE HCL 20 MG TABLET PO SCH ×2 (13:28)
[2019-05-21] MEDS: MINERAL OIL/PETROLATUM,WHITE CREAM 114 GM TP SCH (13:28)
[2019-05-21] MEDS: THIAMINE HCL 100 MG TABLET PO SCH (13:29)
[2019-05-21] MEDS: FLUTICASONE/UMECLIDIN/VILANTER 100-62.5-25 MCG/DOSE IH SCH (13:29)
[2019-05-21] MEDS: VITAMIN B COMPLEX TABLET PO SCH (13:29)
[2019-05-21] MEDS: MULTIVITAMIN TABLET PO SCH (13:29)
--- NOTE | 2019-05-21 16:42 | Progress Note ---
Provider Note Provider Note: CARDIOLOGY CONSULTATION by Dr. Radha Lara on 05/21/2019. SUBJECTIVE: Due to worsening renal function the patient is being transferred to ICU where he is having dialysis at present. The patient is very somnolent and confused and difficult to arouse. There is no arrhythmia seen on the monitor. The patient is nocturnal status to give any history. The patient is BiPAP dependent. Although not a very good study the Dopplers did not reveal any renal artery stenosis of significance. Selected Entries PHYSICAL EXAMINATION: The patient appears to be chronically ill 05/21/19 05/21/19 07:53 12:19 Temperature 98.5 F Temperature Axillary Source Pulse Rate 86 Respiratory 14 Rate Blood Pressure 118/42 L Blood Pressure 67 Mean BP Location Left Arm BP Position Supine O2 Sat by Pulse 94 Oximetry Fraction of 50 Inspired Oxygen (FIO2) Oxygen Delivery Bipap Method HEAD: Head is atraumatic normocephalic. Eyes: Pupils are equal round regular reactive light accommodation extraocular movements are normal there is no congenital pallor there is no scleral icterus. Ears: External auditory canals are clear, there are no lesions of the pinna. Nose: No deviated nasal septum and no inflammation of the nasal mucous membrane. Mouth: Mucous membranes of mouth are moist tongue is moist there is no ulcers there is no bleeding from the gums. Throat: There is no redness of the oropharynx there is no exudates. Skin: There is no petechia or ecchymosis there is no skin lesions or skin rashes. Neck: Neck is supple there is JVD present. Carotids equal there is no bruit there is no lymphadenopathy there is no neck stiffness. There is no goiter trachea central lungs: Lungs show diminished air entry and prolonged expiration. Scattered rhonchi and wheezing present. There is bibasilar rales of CHF. There is no chest wall tenderness. HEART: S1-S2 is heard there is no S3 gallop there is no S4 gallop S1 is of normal intensity. There is no rub. The systolic murmur of MR and TR. There is no prosthetic valve clicks heard. Abdomen: Abdomen is soft, mildly distended, no definite ascites. There is no hepatosplenomegaly. Bowel sounds well heard there is no tender areas of masses. There is no rebound guarding or rigidity. Extremities: Femorals are slightly diminished, there is no bruits. Leg pulses are diminished. There is trace 2- edema, with venous stasis dermatitis. There is no DVT or cellulitis there is no cyanosis or clubbing there is no DVT or cellulitis. There is no calf tenderness. 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 But in spite of this he has slow mentation. Psychiatric: The patient judgment and insight are intact and his affect is flat. The patient's 24-hour intake is 100 mL. His 24-hour output is 500 mL. Labs- All tests 24 hr 05/21/19 05/21/19 04:23 04:23 WBC 10.1 RBC 4.23 L Hgb 10.7 L Hct 33.5 L MCV 79 L MCH 25.3 L MCHC 32.0 RDW 22.8 H Plt Count 145 L Lymph % (Auto) Not Reportable Irwin % (Auto) Not Reportable Eos % (Auto) Not Reportable Baso % (Auto) Not Reportable Absolute Neuts (auto) Not Reportable Absolute Lymphs (auto) Not Reportable Absolute Monos (auto) Not Reportable Absolute Eos (auto) Not Reportable Absolute Basos (auto) Not Reportable Total Counted 100 Seg Neutrophils % Not Reportable Seg Neuts % (Manual) 91 H Lymphocytes % (Manual) 5 L Monocytes % (Manual) 3 Eosinophils % (Manual) 1 Basophils % (Manual) 0 Abs Neuts (Manual) 9.2 H Abs Lymphs (Manual) 0.5 Abs Monocytes (Manual) 0.3 Absolute Eos (Manual) 0.1 Abs Basophils (Manual) 0.0 Platelet Comment DECREASED Anisocytosis 3+ Microcytosis SLIGHT Sodium 140.8 Potassium 4.6 Chloride 105 Carbon Dioxide 22 Anion Gap 14 BUN 131 H Creatinine 4.07 H Est GFR ( Amer) 18 L Est GFR (MDRD) Non-Af 15 L Glucose 96 Calcium 8.6 Phosphorus 6.9 H Magnesium 3.4 H Chest X-Ray 05/12/19 11:53 IMPRESSION: No acute cardiopulmonary process. Chest X-Ray 05/14/19 00:00 IMPRESSION: No acute cardiopulmonary process. Chest X-Ray 05/15/19 15:34 IMPRESSION: Right jugular central line tip SVC. No Pneumothorax Renal Artery Duplex 05/20/19 06:00 IMPRESSION: Nondiagnostic study Chest X-Ray 05/20/19 09:58 IMPRESSION: Pulmonary edema pattern IMPRESSION/RECOMMENDATION: 1. Acute respiratory failure secondary to combination of acute on chronic systolic heart failure, acute renal failure causing volume overload, acute exacerbation of COPD, and severe pulmonary hypertension. Continue BiPAP and oxygen support. 2. Acute on chronic systolic heart failure. Patient has been placed on fluid restriction of 1500 mL each 24 hours. The patient is off inotropes and IV nitroglycerin. He is on topical nitrates and hydralazine. His Entresto has been stopped, but still the patient renal function is deteriorating. Will get studies for renal artery stenosis given the fact that the patient has renal failure and significant peripheral vascular disease. 3. Acute exacerbation COPD: Consider antibiotics. Continue respiratory treatments. This is improved. 4. Hypertension: At present blood pressure reasonable7 5. Severe pulmonary hypertension: The dobutamine the IV nitroglycerin and hydralazine should help. Later we will see the feasibility of starting sildenafil. 6. Acute on chronic renal failure. Avoid nephrotoxic drugs. The patient has been started on dialysis today. 7. Bipolar disorder 8. Tobacco abuse disorder. 9 coronary artery disease: History of coronary bypass graft surgery: No angina and troponin so far is not elevated. 10. Peripheral vascular disease: This will be addressed later on. 11. History of valvular repair: Details not available. Try to contact [facility] but they say they have not heard of the patient, and have no records on him. 12. Severe hearing loss: Medications reviewed. Medical regimen and management plan discussed with attending physician. Discussed with nephrology. Medical decision making is of high complexity. 40 minutes spent as patient more than 50% time spent in direct patient care. Spoke to the patient's very close friend and presumed brother Mr. Connor De Leon. [The patient earlier when lucid and awake and alert has endorsed that Mr.John De Leon is a surrogate healthcare power of commonwealth attorney.] Will follow.
[2019-05-21] MEDS: NITROGLYCERIN 15 MG (0.6 MG/1 HR) PATCH.TD24 TD SCH (16:51)
--- NOTE | 2019-05-21 17:17 | PDOC PROGRESS REPORT ---
Subjective Progress Note for:: 05/21/19 Subjective:: I am seeing the patient during dialysis in the ICU today. He remains to be on BiPAP. He is really not very responsive and barely opens his eyes when called by name. He has no meaningful verbal output. He is currently being dialyzed using his right inguinal femoral catheter. So far he is tolerating dialysis. He made about 525 mL of urine output for the past 24 hours. His urine is still dark but not as bad as yesterday. There are obvious sediments in his Brody catheter. Reason For Visit: HEART FAILURE Physical Exam Vital Signs: Temp Pulse Resp BP Pulse Ox 97.5 F 83 15 137/55 H 95 05/21/19 03:45 05/21/19 07:00 05/21/19 04:59 05/21/19 03:45 05/21/19 04:59 Intake & Output 05/20/19 05/21/19 05/22/19 06:59 06:59 06:59 Intake Total 1440 100 Output Total 375 525 Balance 1065 -425 Weight 127.6 kg 127 kg Vitals during dialysis: Blood pressure 111/50, heart rate of 83, blood flow rate of 250 mL/min and dialysate flow rate of 600 mL/min. Exam: General appearance: PRESENT: Currently on BiPAP and not responsive to questions Head exam: PRESENT: atraumatic, normocephalic Eye exam: PRESENT: conjunctiva pale, PERRLA. ABSENT: scleral icterus Neck exam: ABSENT: JVD Respiratory exam: PRESENT: Diminished breath sounds. ABSENT: crackles, rales, rhonchi, unlabored, wheezes Cardiovascular exam: PRESENT: Regular rate rhythm -+S1, +S2. ABSENT: diastolic murmur, systolic murmur GI/Abdominal exam: PRESENT: normal bowel sounds, soft. ABSENT: guarding, mass, tenderness Extremities exam: Grade 2 bilateral lower extremity pitting edema Neurological exam: PRESENT: Appears lethargic, not answering questions. Skin exam: PRESENT: dry, warm, chronic stasis dermatitis on both legs Cardiovascular exam: PRESENT: +S1, +S2 GI/Abdominal exam: PRESENT: ascites, distended, firm, tenderness. ABSENT: guarding, soft Results Laboratory Results: 05/21/19 04:23 05/21/19 04:23 05/21/19 05/21/19 04:23 04:23 WBC 10.1 RBC 4.23 L Hgb 10.7 L Hct 33.5 L MCV 79 L MCH 25.3 L MCHC 32.0 RDW 22.8 H Plt Count 145 L Seg Neutrophils % Not Reportable Sodium 140.8 Potassium 4.6 Chloride 105 Carbon Dioxide 22 Anion Gap 14 BUN 131 H Creatinine 4.07 H Est GFR ( Amer) 18 L Glucose 96 Calcium 8.6 Phosphorus 6.9 H Magnesium 3.4 H 05/15/19 09:32 Blood Blood Culture - Final NO GROWTH IN 5 DAYS 05/15/19 08:24 Blood Blood Culture - Final NO GROWTH IN 5 DAYS 05/12/19 05/12/19 05/13/19 12:00 18:31 00:16 Creatine Kinase CK-MB (CK-2) Troponin I 0.039 0.041 0.039 NT-Pro-B Natriuret Pep 8970 H 05/13/19 05/14/19 05/19/19 09:35 04:26 17:45 Creatine Kinase 230 H CK-MB (CK-2) 4.88 H Troponin I 0.047 NT-Pro-B Natriuret Pep 08184 H Impressions: Renal Artery Duplex 05/20/19 06:00 IMPRESSION: Nondiagnostic study Chest X-Ray 05/20/19 09:58 IMPRESSION: Pulmonary edema pattern Assessment & Plan - Diagnosis (1) Acute kidney injury superimposed on chronic kidney disease Is this a current diagnosis for this admission?: Yes Plan: This is most likely secondary to acute tubular necrosis currently oliguric with uremic symptoms. Multifactorial causes include poor renal perfusion secondary to congestive heart failure with very low ventricular ejection fraction, diuresis, hypertension, and concurrent infection. Patient has uremic symptoms including acute metabolic encephalopathy, asterixis and worsening pulmonary e toshia. These are all indications for acute renal replacement therapy. Patient would benefit from acute renal replacement therapy to hopefully alleviate all the above conditions. Consent for dialysis was obtained from Dr. Cantu and Dr. Gonzalez in ICU. We will do dialysis today for 2.5 hours, using the patient's right femoral trialysis catheter, with 2 potassium bath, blood flow rate of 250 mL per minute, dialysate flow rate of 600 mL per minute, ultrafiltration 2 L as tolerated, no heparin and no Procrit. Patient is being monitored throughout dialysis treatment done in the ICU. I will reevaluate the patient tomorrow to see if he needs a subsequent dialysis treatment due to the degree of his uremia. (2) Metabolic encephalopathy Is this a current diagnosis for this admission?: Yes Plan: This is most likely secondary to uremia and hypoxia. (3) Acute combined systolic and diastolic congestive heart failure, NYHA class 4 Is this a current diagnosis for this admission?: Yes Plan: Patient has left ventricular ejection fraction of 25% and grade 1/4 diastolic dysfunction. Patient has been on IV dobutamine drip IV Lasix for the last few days and subsequently discontinued. Despite all this the patient continues to be short of breath. Cardiology is, Dr. Lara also following the patient. (4) Acute respiratory failure with hypoxia Is this a current diagnosis for this admission?: Yes Plan: This is secondary to saturation of congestive heart failure with increasing pulmonary edema. (5) Pulmonary hypertension Is this a current diagnosis for this admission?: Yes Plan: Very severe. (6) Cellulitis, leg Qualifiers: Laterality: unspecified laterality Qualified Code(s): L03.119 - Cellulitis of unspecified part of limb Is this a current diagnosis for this admission?: Yes Plan: On IV antibiotics. (7) Foot ulcer, right Qualifiers: Non-pressure ulcer stage: unspecified non-pressure ulcer stage Qualified Code(s): L97.519 - Non-pressure chronic ulcer of other part of right foot with unspecified severity Is this a current diagnosis for this admission?: Yes (8) Stasis dermatitis of both legs Is this a current diagnosis for this admission?: Yes (9) COPD (chronic obstructive pulmonary disease) Qualifiers: COPD type: COPD with acute exacerbation Qualified Code(s): J44.1 - Chronic obstructive pulmonary disease with (acute) exacerbation Is this a current diagnosis for this admission?: Yes (10) Peripheral vascular disease Is this a current diagnosis for this admission?: Yes Plan: Arterial duplex showed moderately hemodynamically significant lesions in bilateral lower extremities. (11) Hearing loss Is this a current diagnosis for this admission?: Yes - Time Time with patient: 15-25 minutes
[2019-05-21] MEDS ORDERED: BACLOFEN 10 MG TABLET PO ONE (18:30)
--- NOTE | 2019-05-21 18:48 | PDOC PROGRESS REPORT ---
Subjective Progress Note for:: 05/21/19 Subjective:: Patient is clearly altered today. No meaningful communication just mainly moans and groans. Occasionally able to voice a few brief phrases. Reason For Visit: HEART FAILURE Physical Exam Vital Signs: Temp Pulse Resp BP Pulse Ox 98.5 F 87 14 114/75 95 05/21/19 15:27 05/21/19 15:27 05/21/19 15:27 05/21/19 15:27 05/21/19 15:27 Intake & Output 05/20/19 05/21/19 05/22/19 06:59 06:59 06:59 Intake Total 2147 699 2470 Output Total 192 396 8178 Balance 1065 425 -2100 Weight 127.6 kg 127 kg General appearance: PRESENT: obese Eye exam: PRESENT: PERRLA Neck exam: PRESENT: other - JVD assessment limited by large neck Respiratory exam: PRESENT: rhonchi, unlabored. ABSENT: tachypnea, wheezes Cardiovascular exam: PRESENT: RRR, +S1, +S2. ABSENT: tachycardia GI/Abdominal exam: PRESENT: normal bowel sounds, soft. ABSENT: rebound, rigid, tenderness Neurological exam: PRESENT: altered, awake, other - Extremely hard of hearing. Noted frequent body tremors. Not following commands but hard to tell if this is because of mental status or because of his deafness. However, not following commands even to visual stimulus.. ABSENT: alert, oriented to place, oriented to time Psychiatric exam: ABSENT: agitated Results Laboratory Results: 05/21/19 04:23 05/21/19 04:23 05/21/19 05/21/19 04:23 04:23 WBC 10.1 RBC 4.23 L Hgb 10.7 L Hct 33.5 L MCV 79 L MCH 25.3 L MCHC 32.0 RDW 22.8 H Plt Count 145 L Seg Neutrophils % Not Reportable Sodium 140.8 Potassium 4.6 Chloride 105 Carbon Dioxide 22 Anion Gap 14 BUN 131 H Creatinine 4.07 H Est GFR ( Amer) 18 L Glucose 96 Calcium 8.6 Phosphorus 6.9 H Magnesium 3.4 H 05/12/19 05/12/19 05/13/19 12:00 18:31 00:16 Creatine Kinase CK-MB (CK-2) Troponin I 0.039 0.041 0.039 NT-Pro-B Natriuret Pep 8970 H 05/13/19 05/14/19 05/19/19 09:35 04:26 17:45 Creatine Kinase 230 H CK-MB (CK-2) 4.88 H Troponin I 0.047 NT-Pro-B Natriuret Pep [id number] H Impressions: Renal Artery Duplex 05/20/19 06:00 IMPRESSION: Nondiagnostic study Chest X-Ray 05/20/19 09:58 IMPRESSION: Pulmonary edema pattern Assessment and Plan - Diagnosis (1) Acute on chronic renal failure Qualifiers: Acute renal failure type: with acute tubular necrosis Chronic kidney disease stage: stage 3 (moderate) Qualified Code(s): N17.0 - Acute kidney failure with tubular necrosis; N18.3 - Chronic kidney disease, stage 3 (moderate) Is this a current diagnosis for this admission?: Yes Plan: Patient continues to have worsening renal function and now with uremia and possibly uremic encephalopathy. BUN is up to 131 today. Baseline creatinine seems to be around 1.6-1.8 but currently >4. He did not have significant urine output with Lasix challenge yesterday and as such was initiated on dialysis today. Over 2 L of fluid was removed during dialysis. Continue to monitor strict I's and O's. Will repeat dialysis tomorrow. (2) Acute metabolic encephalopathy Is this a current diagnosis for this admission?: Yes Plan: Clearly altered. More so than yesterday. BUN noticed to be going up. Suspecting uremic encephalopathy. If no improvement with dialysis tomorrow will evaluate for other causes of his encephalopathy. No evidence of metabolic acidosis noted on BMP this morning. (3) Acute respiratory failure with hypoxia Is this a current diagnosis for this admission?: Yes Plan: Secondary to acute on chronic systolic heart failure with pulmonary edema noted on chest x-ray today and severe pulmonary hypertension as well as underlying COPD. Nasal cannula and BiPAP as needed (4) Acute exacerbation of congestive heart failure Qualifiers: Heart failure type: systolic Qualified Code(s): I50.23 - Acute on chronic systolic (congestive) heart failure Is this a current diagnosis for this admission?: Yes Plan: Acute exacerbation of systolic heart failure NYHA stage III. 05/12/2019 2D echo LVEF 25%. Grade 1/4 mild diastolic dysfunction. RSVP 96-100 mmHg. proBNP is 12,700. Chest x-ray revealing pulmonary edema. We will continue to remove fluid through dialysis as patient is not having much urinary output from the suspected ATN. Blood pressures have been stable today. (5) Cellulitis, leg Qualifiers: Laterality: unspecified laterality Qualified Code(s): L03.119 - Cellulitis of unspecified part of limb Is this a current diagnosis for this admission?: Yes Plan: Leukocytosis resolved Wound culture growing gram-positive cocci in clusters and Acinetobacter Baumannii sensitive to beta lactams, carboplatin, and quinolones. Currently on cefepime for coverage of Acinetobacter, Staphylococcus and Pseudomonas from wound culture Day 9/10 antibiotics. Day 7 IV cefepime. Received 3 days of IV clindamycin. Received 3 days of p.o. Keflex. (6) Peripheral vascular disease Is this a current diagnosis for this admission?: Yes Plan: Severe bilateral lower extremity stasis dermatitis, cellulitis complicated by PVD. Arterial Doppler positive for moderate hemodynamically significant lesion in the bilateral lower extremities on duplex imaging, focal stenosis identified. Significant arterial obstructive disease noted in the popliteal on the right infrageniculate vessel on the left. Renal arterial duplex show no significant renal artery stenosis. Vascular surgeon consulted and recommending outpatient follow-up. (7) Physical deconditioning Is this a current diagnosis for this admission?: Yes (8) COPD (chronic obstructive pulmonary disease) Qualifiers: COPD type: COPD with acute exacerbation Qualified Code(s): J44.1 - Chronic obstructive pulmonary disease with (acute) exacerbation Is this a current diagnosis for this admission?: Yes (9) Pulmonary hypertension Is this a current diagnosis for this admission?: Yes - Time Time Spent with patient: 15-24 minutes
[2019-05-21] MEDS ORDERED: BACLOFEN 10 MG TABLET PO PRN (19:09)
[2019-05-21] MEDS: QUETIAPINE FUMARATE 300 MG PO SCH (21:50)
[2019-05-22] MEDS: HEPARIN SOD (PORCINE) 5,000 UNIT/ML 1 ML VIAL SUBCUT SCH ×3 (05:26→21:10)
[2019-05-22] MEDS: PANTOPRAZOLE SODIUM 40 MG TABLET.DR PO SCH (05:26)
[2019-05-22 06:37] LABS: HEMATOCRIT 29.9 % (37.9-51.0); HEMOGLOBIN 9.9 g/dL (13.5-17.0); MEAN CORPUSCULAR HEMOGLOBIN 25.8 pg (27.0-33.4); MEAN CORPUSCULAR HGB CONC 33.3 g/dL (32.0-36.0); MEAN CORPUSCULAR VOLUME 78 fl (80-97); PLATELET COUNT 153 10^3/uL (150-450); RED BLOOD COUNT 3.85 10^6/uL (4.35-5.55); RED CELL DISTRIBUTION WIDTH 22.3 % (11.5-14.0); WHITE BLOOD COUNT 10.4 10^3/uL (4.0-10.5)
[2019-05-22 06:52] LABS: ALKALINE PHOSPHATASE 117 U/L (38-126); ANION GAP 15 (5-19); ASPARTATE AMINO TRANSFERASE 25 U/L (17-59); BILIRUBIN,DIRECT 1.6 mg/dL (0.0-0.4); BILIRUBIN,TOTAL 2.1 mg/dL (0.2-1.3); BLOOD UREA NITROGEN 99 mg/dL (7-20); CALCIUM 8.3 mg/dL (8.4-10.2); CARBON DIOXIDE 23 mmol/L (22-30); CHLORIDE 103 mmol/L (98-107); GLUCOSE 81 mg/dL (75-110); PHOSPHORUS 5.6 mg/dL (2.5-4.5); POTASSIUM 4.1 mmol/L (3.6-5.0)
[2019-05-22 07:11] LABS: ABSOLUTE LYMPHOCYTES# (MANUAL) 0.6 10^3/uL (0.5-4.7); ABSOLUTE MONOCYTES # (MANUAL) 0.3 10^3/uL (0.1-1.4); BASOPHILS % (MANUAL) 0 % (0-2); EOSINOPHILS % (MANUAL) 2 % (0-6); LYMPHOCYTES % (MANUAL) 6 % (13-45); MONOCYTES % (MANUAL) 3 % (3-13); SEGMENTED NEUTROPHILS % (MAN) 89 % (42-78); TOTAL CELLS COUNTED 100
[2019-05-22 07:14] LABS: ANISOCYTOSIS 3+; HYPOCHROMASIA SLIGHT; TOXIC GRANULATION SLIGHT
[2019-05-22 07:15] LABS: OVALOCYTES SLIGHT; PLATELET COMMENT ADEQUATE; POIKILOCYTOSIS 1+; TEAR DROP CELLS SLIGHT
[2019-05-22 07:38] LABS: HEPATITS B SURFACE ANTIGEN Negative (Negative)
[2019-05-22 07:39] LABS: HEPATITIS B CORE AB TOT Negative (Negative)
[2019-05-22] MEDS: IPRATROPIUM/ALBUTEROL 0.5-2.5 MG/3 ML AMPUL NEB SCH ×3 (07:39→20:28)
[2019-05-22] MEDS ORDERED: NORMAL SALINE 1000 ML 1,000 ML IV PRN (09:12)
[2019-05-22] MEDS ORDERED: HEPARIN SOD (PORCINE) 1,000 UNIT/ML 10 ML VIAL IV PRN (09:12)
[2019-05-22] MEDS ORDERED: PERMETHRIN 5% CREAM 60 GM TP ONE (11:30)
--- NOTE | 2019-05-22 13:07 | PDOC PROGRESS REPORT ---
Subjective Progress Note for:: 05/22/19 Subjective:: Unable to have much conversation with patient given her mental state and difficulty hearing. Reason For Visit: HEART FAILURE Physical Exam Vital Signs: Temp Pulse Resp BP Pulse Ox 98.5 F 92 34 H 135/57 H 94 05/22/19 07:32 05/22/19 07:39 05/22/19 12:15 05/22/19 07:32 05/22/19 12:15 Intake & Output 05/21/19 05/22/19 05/23/19 06:59 06:59 06:59 Intake Total 100 1542 Output Total 525 3300 Balance -425 -1758 Weight 127 kg 127.2 kg General appearance: PRESENT: no acute distress, cooperative, hard of hearing - Extremely, morbidly obese Neck exam: ABSENT: JVD Respiratory exam: PRESENT: crackles, symmetrical, tachypnea, unlabored. ABSENT: wheezes Cardiovascular exam: PRESENT: RRR, +S1, +S2. ABSENT: tachycardia GI/Abdominal exam: PRESENT: normal bowel sounds, soft. ABSENT: rebound, rigid, tenderness Extremities exam: PRESENT: pedal edema Neurological exam: PRESENT: alert, altered, awake, other - Moves all extremities easily. Not really able to follow commands reports does demonstrate good strength in his arms bilaterally. ABSENT: aphasic Skin exam: PRESENT: rash - Punctate erythematous lesions noted in his thighs suggs ds with lesions in the web of his fingers and linear distribution of most of the rashes Results Laboratory Results: 05/22/19 05:35 05/22/19 05:35 05/22/19 05/22/19 05:35 05:35 WBC 10.4 RBC 3.85 L Hgb 9.9 L Hct 29.9 L MCV 78 L MCH 25.8 L MCHC 33.3 RDW 22.3 H Plt Count 153 Seg Neutrophils % Not Reportable Sodium 140.9 Potassium 4.1 Chloride 103 Carbon Dioxide 23 Anion Gap 15 BUN 99 H Creatinine 3.63 H Est GFR ( Amer) 21 L Glucose 81 Calcium 8.3 L Phosphorus 5.6 H Magnesium 3.2 H Total Bilirubin 2.1 H AST 25 Alkaline Phosphatase 117 Total Protein 6.0 L Albumin 3.0 L 05/12/19 05/12/19 05/13/19 12:00 18:31 00:16 Creatine Kinase CK-MB (CK-2) Troponin I 0.039 0.041 0.039 NT-Pro-B Natriuret Pep 8970 H 05/13/19 05/14/19 05/19/19 09:35 04:26 17:45 Creatine Kinase 230 H CK-MB (CK-2) 4.88 H Troponin I 0.047 NT-Pro-B Natriuret Pep 22862 H Impressions: Renal Artery Duplex 05/20/19 06:00 IMPRESSION: Nondiagnostic study Chest X-Ray 05/20/19 09:58 IMPRESSION: Pulmonary edema pattern Assessment and Plan - Diagnosis (1) Acute on chronic renal failure Qualifiers: Acute renal failure type: with acute tubular necrosis Chronic kidney disease stage: stage 3 (moderate) Qualified Code(s): N17.0 - Acute kidney failure with tubular necrosis; N18.3 - Chronic kidney disease, stage 3 (moderate) Is this a current diagnosis for this admission?: Yes Plan: Suspecting cardiorenal causing ATN superimposed on CKD BUN improving with dialysis. Plan to dialyze again today. Still has oliguria. Nephrology following. (2) Acute metabolic encephalopathy Is this a current diagnosis for this admission?: Yes Plan: Altered mental status looks better today. Suspecting uremic encephalopathy. We will continue to monitor for improvement with hemodialysis. (3) Acute respiratory failure with hypoxia Is this a current diagnosis for this admission?: Yes Plan: Secondary to acute on chronic systolic heart failure with pulmonary edema noted on chest x-ray today and severe pulmonary hypertension as well as underlying COPD. Nasal cannula and BiPAP as needed (4) Acute exacerbation of congestive heart failure Qualifiers: Heart failure type: systolic Qualified Code(s): I50.23 - Acute on chronic systolic (congestive) heart failure Is this a current diagnosis for this admission?: Yes Plan: Acute exacerbation of systolic heart failure NYHA stage III. 05/12/2019 2D echo LVEF 25%. Grade 1/4 mild diastolic dysfunction. RSVP 96-100 mmHg. proBNP is 12,700. Chest x-ray pulmonary edema. We will continue to remove fluid through dialysis as patient is not having much urinary output from the suspected ATN. (5) Scabies Is this a current diagnosis for this admission?: Yes Plan: Linear distribution of punctate erythematous rash in legs and arms and involving finger webs. Raising suspicion for scabies. Will perform Head To Toe administration of permethrin. Isolation. (6) Cellulitis, leg Qualifiers: Laterality: unspecified laterality Qualified Code(s): L03.119 - Cellulitis of unspecified part of limb Is this a current diagnosis for this admission?: Yes Plan: Leukocytosis resolved Wound culture growing gram-positive cocci in clusters and Acinetobacter Baumannii sensitive to beta lactams, carboplatin, and quinolones. Currently on cefepime for coverage of Acinetobacter, Staphylococcus and Pseudomonas from wound culture Day 10/10 antibiotics. Day 8 IV cefepime. Received 3 days of IV clindamycin. Received 3 days of p.o. Keflex. (7) Peripheral vascular disease Is this a current diagnosis for this admission?: Yes Plan: Arterial Doppler positive for moderate hemodynamically significant lesion in the bilateral lower extremities on duplex imaging, focal stenosis identified. Significant arterial obstructive disease noted in the popliteal on the right infrageniculate vessel on the left. Renal arterial duplex show no significant renal artery stenosis. Vascular surgeon consulted and recommending outpatient follow-up. (8) Physical deconditioning Is this a current diagnosis for this admission?: Yes (9) COPD (chronic obstructive pulmonary disease) Qualifiers: COPD type: COPD with acute exacerbation Qualified Code(s): J44.1 - Chronic obstructive pulmonary disease with (acute) exacerbation Is this a current diagnosis for this admission?: Yes (10) Pulmonary hypertension Is this a current diagnosis for this admission?: Yes - Time Time Spent with patient: 15-24 minutes
--- NOTE | 2019-05-22 13:56 | PDOC PROGRESS REPORT ---
Subjective Progress Note for:: 05/22/19 Subjective:: I saw the patient this morning. He appears to be more awake although still not communicating very well. Nurse noticed also that his mental status is better today than yesterday. He continues to be on BiPAP. He continues to be oliguric with urine output of only 300 mL from yesterday. I think it will benefit him to have subsequent dialysis treatment today so I decided to dialyze him again today. Patient was then transferred to ICU for dialysis only due to BiPAP. At around 12 noon, I am seeing the patient during dialysis treatment in ICU. Again he remains to be in the BiPAP. Mental status the same as above. My dialysis nurse also informed me that she notes scabies tracks on his arms. This was relayed to Dr. Cantu. Nevertheless the patient continues to tolerate dialysis. His blood pressure is relatively low when I saw him so he will be monitored very carefully. Reason For Visit: HEART FAILURE Physical Exam Vital Signs: Temp Pulse Resp BP Pulse Ox 98.5 F 92 29 H 135/57 H 98 05/22/19 07:32 05/22/19 07:39 05/22/19 07:39 05/22/19 07:32 05/22/19 07:39 Intake & Output 05/21/19 05/22/19 05/23/19 06:59 06:59 06:59 Intake Total 100 1542 Output Total 525 3300 Balance -425 -1758 Weight 127 kg 127.2 kg Vitals during dialysis treatment: Blood pressure of 91/64, heart rate of 87, blood flow rate of 250 mm/min and dialysate flow rate of 600 mL/min. Exam: General appearance: PRESENT: Patient still on BiPAP. Unable to have meaningful communication but with less moaning and groaning today. Head exam: PRESENT: atraumatic, normocephalic Eye exam: PRESENT: conjunctiva slightly pale, PERRLA. ABSENT: scleral icterus Neck exam: ABSENT: JVD Respiratory exam: PRESENT: Coarse breath sounds. ABSENT: crackles, rales, rhonchi, unlabored, wheezes Cardiovascular exam: PRESENT: Regular rate rhythm -+S1, +S2. ABSENT: diastolic murmur, systolic murmur GI/Abdominal exam: PRESENT: normal bowel sounds, soft. Appears to be less distended today. ABSENT: guarding, mass, tenderness Extremities exam: Grade 2 bilateral lower extremity pitting edema up to the thighs Neurological exam: PRESENT: Confused and unable to communicate. Skin exam: PRESENT: dry, warm, pinpoint tracks along his upper extremities in a straight line consistent with possible scabies Cardiovascular exam: PRESENT: +S1, +S2 GI/Abdominal exam: PRESENT: ascites, distended, firm, tenderness. ABSENT: guarding, soft Results Laboratory Results: 05/22/19 05:35 05/22/19 05:35 05/22/19 05/22/19 05:35 05:35 WBC 10.4 RBC 3.85 L Hgb 9.9 L Hct 29.9 L MCV 78 L MCH 25.8 L MCHC 33.3 RDW 22.3 H Plt Count 153 Seg Neutrophils % Not Reportable Sodium 140.9 Potassium 4.1 Chloride 103 Carbon Dioxide 23 Anion Gap 15 BUN 99 H Creatinine 3.63 H Est GFR ( Amer) 21 L Glucose 81 Calcium 8.3 L Phosphorus 5.6 H Magnesium 3.2 H Total Bilirubin 2.1 H AST 25 Alkaline Phosphatase 117 Total Protein 6.0 L Albumin 3.0 L 05/12/19 05/12/19 05/13/19 12:00 18:31 00:16 Creatine Kinase CK-MB (CK-2) Troponin I 0.039 0.041 0.039 NT-Pro-B Natriuret Pep 8970 H 05/13/19 05/14/19 05/19/19 09:35 04:26 17:45 Creatine Kinase 230 H CK-MB (CK-2) 4.88 H Troponin I 0.047 NT-Pro-B Natriuret Pep [id number] H Impressions: Renal Artery Duplex 05/20/19 06:00 IMPRESSION: Nondiagnostic study Chest X-Ray 05/20/19 09:58 IMPRESSION: Pulmonary edema pattern Assessment & Plan - Diagnosis (1) Acute kidney injury superimposed on chronic kidney disease Is this a current diagnosis for this admission?: Yes Plan: This is most likely secondary to acute tubular necrosis, currently oliguric with uremic symptoms. Multifactorial causes include poor renal perfusion secondary to congestive heart failure with very low ventricular ejection fraction, diuresis, hypertension, and concurrent infection. Patient has uremic symptoms including acute metabolic encephalopathy, asterixis and worsening pulmonary edema. These are all indications for acute renal replacement therapy. Patient would benefit from acute renal replacement therapy to hopefully alleviate all the above conditions. Baseline creatinine around 1.6-1.8. Kidney function appears better after dialysis yesterday as expected however patient is still very much uremic. We will do dialysis today for 2.5 hours, using the patient's right femoral shad ter, with 3 potassium bath, blood flow rate of 250 mL per minute, dialysate flow rate of 600 mL per minute, ultrafiltration 2 L as tolerated, no heparin and no Procrit. Discussed treatment plan with our dialysis nurse. We are to maintain adequate blood pressure so ultrafiltration will be adjusted accordingly. We will plan to do another dialysis treatment tomorrow. (2) Metabolic encephalopathy Is this a current diagnosis for this admission?: Yes Plan: This is most likely secondary to uremia and hypoxia. (3) Acute combined systolic and diastolic congestive heart failure, NYHA class 4 Is this a current diagnosis for this admission?: Yes Plan: Patient has left ventricular ejection fraction of 25% and grade 1/4 diastolic dysfunction. Patient has been on IV dobutamine drip IV Lasix for the last few days and subsequently discontinued. Despite all this the patient continues to be short of breath. Cardiology is, Dr. Lara also following the patient. (4) Acute respiratory failure with hypoxia Is this a current diagnosis for this admission?: Yes Plan: This is secondary to saturation of congestive heart failure with increasing pulmonary edema. (5) Pulmonary hypertension Is this a current diagnosis for this admission?: Yes Plan: Very severe. (6) Hyperphosphatemia Is this a current diagnosis for this admission?: Yes Plan: Due to ERNESTINE. Improved after dialysis. (7) Hypermagnesemia Is this a current diagnosis for this admission?: Yes Plan: Due to ERNESTINE. (8) Anemia Is this a current diagnosis for this admission?: Yes Plan: Worsened by acute illness. (9) Cellulitis, leg Qualifiers: Laterality: unspecified laterality Qualified Code(s): L03.119 - Cellulitis of unspecified part of limb Is this a current diagnosis for this admission?: Yes Plan: Completed IV antibiotics per hospitalist service. (10) Foot ulcer, right Qualifiers: Non-pressure ulcer stage: unspecified non-pressure ulcer stage Qualified Code(s): L97.519 - Non-pressure chronic ulcer of other part of right foot with unspecified severity Is this a current diagnosis for this admission?: Yes (11) COPD (chronic obstructive pulmonary disease) Qualifiers: COPD type: COPD with acute exacerbation Qualified Code(s): J44.1 - Chronic obstructive pulmonary disease with (acute) exacerbation Is this a current diagnosis for this admission?: Yes (12) Peripheral vascular disease Is this a current diagnosis for this admission?: Yes Plan: Arterial duplex showed moderately hemodynamically significant lesions in bilateral lower extremities. (13) Stasis dermatitis of both legs Is this a current diagnosis for this admission?: Yes (14) Hearing loss Is this a current diagnosis for this admission?: Yes - Time Time with patient: 15-25 minutes
[2019-05-22] MEDS: ASPIRIN 81 MG TABLET, ENT COATED PO SCH (15:10)
[2019-05-22] MEDS: NITROGLYCERIN 15 MG (0.6 MG/1 HR) PATCH.TD24 TD SCH (15:10)
--- NOTE | 2019-05-22 15:41 | Progress Note ---
Provider Note Provider Note: CARDIOLOGY PROGRESS NOTE by Dr. Radha Lara on 05/22/2019. SUBJECTIVE: The patient has been dialyzed today. His urine output has been good. But the patient still with the same mental status changes. He also seems to have developed scabies. There is no arrhythmia seen on the monitor. In view of the patient's mental status cannot obtain any history from the patient. PHYSICAL EXAMINATION: The patient appears to be chronically ill and malnourished. Selected Entries 05/22/19 05/22/19 15:54 16:15 Temperature 98.3 F Temperature Axillary Source Pulse Rate 92 Respiratory 18 Rate Blood Pressure 143/54 H Blood Pressure 83 Mean BP Location Left Arm BP Position Supine O2 Sat by Pulse 93 Oximetry Fraction of 40 Inspired Oxygen (FIO2) Oxygen Delivery Bipap Method HEAD: Head is atraumatic normocephalic. Eyes: Pupils are equal round regular reactive light accommodation extraocular movements are normal there is no congenital pallor there is no scleral icterus. Ears: External auditory canals are clear, there are no lesions of the pinna. Nose: No deviated nasal septum and no inflammation of the nasal mucous membrane. Mouth: Mucous membranes of mouth are moist tongue is moist there is no ulcers there is no bleeding from the gums. Throat: There is no redness of the oropharynx there is no exudates. Skin: There is no petechia or ecchymosis there is no skin lesions or skin rashes. Neck: Neck is supple there is JVD present. Carotids equal there is no bruit there is no lymphadenopathy there is no neck stiffness. There is no goiter trachea central lungs: Lungs show diminished air entry and prolonged expiration. Scattered rhonchi and wheezing present. There is bibasilar rales of CHF. There is no chest wall tenderness. HEART: S1-S2 is heard there is no S3 gallop there is no S4 gallop S1 is of normal intensity. There is no rub. The systolic murmur of MR and TR. There is no prosthetic valve clicks heard. Abdomen: Abdomen is soft, mildly distended, no definite ascites. There is no hepatosplenomegaly. Bowel sounds well heard there is no tender areas of masses. There is no rebound guarding or rigidity. Extremities: Femorals are slightly diminished, there is no bruits. Leg pulses are diminished. There is trace 2- edema, with venous stasis dermatitis. There is no DVT or cellulitis there is no cyanosis or clubbing there is no DVT or cellulitis. There is no calf tenderness. DISCHARGE PLANNER: The patient is awake alert oriented 3 with no focal deficits. But in spite of this he has slow mentation. Psychiatric: The patient judgment and insight are intact and his affect is flat. The patient's 24-hour intake is 1542 mL. His 24-hour output is 3300 mL. IMPRESSION/RECOMMENDATION: 1. Acute respiratory failure secondary to combination of acute on chronic systolic heart failure, acute renal failure causing volume overload, acute exacerbation of COPD, and severe pulmonary hypertension. Continue BiPAP and oxygen support. 2. Acute on chronic systolic heart failure. Patient has been placed on fluid restriction of 1500 mL each 24 hours. The patient is off inotropes and IV nitroglycerin. He is on topical nitrates and hydralazine. His Entresto has been stopped, but still the patient renal function is deteriorating. Will get studies for renal artery stenosis given the fact that the patient has renal failure and significant peripheral vascular disease. 3. Acute exacerbation COPD: Consider antibiotics. Continue respiratory treatments. This is improved. 4. Hypertension: At present blood pressure reasonable7 5. Severe pulmonary hypertension: The dobutamine the IV nitroglycerin and hydralazine should help. Later we will see the feasibility of starting sildenafil. 6. Acute on chronic renal failure. Avoid nephrotoxic drugs. The patient has been started on dialysis today. 7. Bipolar disorder 8. Tobacco abuse disorder. 9 coronary artery disease: History of coronary bypass graft surgery: No angina and troponin so far is not elevated. 10. Peripheral vascular disease: This will be addressed later on. 11. History of valvular repair: Details not available. Try to contact [facility] but they say they have not heard of the patient, and have no records on him. 12. Severe hearing loss: Medications reviewed. Medical regimen and management plan discussed with attending physician. Discussed with nephrology. Medical decision making is of high complexity. 40 minutes spent as patient more than 50% time spent in direct patient care.
[2019-05-22] MEDS: PAROXETINE HCL 20 MG TABLET PO SCH ×2 (16:16)
[2019-05-22] MEDS: QUETIAPINE FUMARATE 150 MG PO SCH (16:16)
[2019-05-22] MEDS: VITAMIN B COMPLEX TABLET PO SCH (16:17)
[2019-05-22] MEDS: FLUTICASONE/UMECLIDIN/VILANTER 100-62.5-25 MCG/DOSE IH SCH (16:17)
[2019-05-22] MEDS: THIAMINE HCL 100 MG TABLET PO SCH (16:17)
[2019-05-22] MEDS: MULTIVITAMIN TABLET PO SCH (16:17)
[2019-05-22] MEDS: MINERAL OIL/PETROLATUM,WHITE CREAM 114 GM TP SCH (17:19)
[2019-05-22] MEDS: QUETIAPINE FUMARATE 300 MG PO SCH (21:06)
[2019-05-23] MEDS ORDERED: NORMAL SALINE 1000 ML 1,000 ML IV PRN (05:00)
[2019-05-23] MEDS ORDERED: HEPARIN SOD (PORCINE) 1,000 UNIT/ML 10 ML VIAL IV PRN (05:00)
[2019-05-23 05:18] LABS: ALBUMIN 3.3 g/dL (3.5-5.0); ALKALINE PHOSPHATASE 142 U/L (38-126); ANION GAP 19 (5-19); ASPARTATE AMINO TRANSFERASE 27 U/L (17-59); BILIRUBIN,DIRECT 1.7 mg/dL (0.0-0.4); BILIRUBIN,TOTAL 2.4 mg/dL (0.2-1.3); CALCIUM 8.8 mg/dL (8.4-10.2); CARBON DIOXIDE 22 mmol/L (22-30); CHLORIDE 102 mmol/L (98-107); GLUCOSE 126 mg/dL (75-110); PHOSPHORUS 4.9 mg/dL (2.5-4.5); POTASSIUM 4.1 mmol/L (3.6-5.0); TOTAL PROTEIN 6.7 g/dL (6.3-8.2)
[2019-05-23 05:21] LABS: HEMATOCRIT 30.7 % (37.9-51.0); MEAN CORPUSCULAR HEMOGLOBIN 25.2 pg (27.0-33.4); MEAN CORPUSCULAR HGB CONC 32.4 g/dL (32.0-36.0); MEAN CORPUSCULAR VOLUME 78 fl (80-97); PLATELET COUNT 169 10^3/uL (150-450); RED BLOOD COUNT 3.96 10^6/uL (4.35-5.55); RED CELL DISTRIBUTION WIDTH 22.6 % (11.5-14.0); WHITE BLOOD COUNT 12.5 10^3/uL (4.0-10.5)
[2019-05-23 05:26] LABS: ABSOLUTE LYMPHOCYTES# (MANUAL) 0.4 10^3/uL (0.5-4.7); ABSOLUTE MONOCYTES # (MANUAL) 0.4 10^3/uL (0.1-1.4); BAND NEUTROPHILS % (MANUAL) 1 % (3-5); BASOPHILS % (MANUAL) 0 % (0-2); EOSINOPHILS % (MANUAL) 0 % (0-6); LYMPHOCYTES % (MANUAL) 3 % (13-45); MONOCYTES % (MANUAL) 3 % (3-13); SEGMENTED NEUTROPHILS % (MAN) 93 % (42-78); TOTAL CELLS COUNTED 100
[2019-05-23 05:28] LABS: ANISOCYTOSIS 3+
[2019-05-23 05:29] LABS: BLOOD UREA NITROGEN 79 mg/dL (7-20); OVALOCYTES SLIGHT; PLATELET COMMENT ADEQUATE
[2019-05-23 05:30] LABS: HYPOCHROMASIA SLIGHT; TARGET CELLS SLIGHT; TEAR DROP CELLS SLIGHT
[2019-05-23] MEDS: HEPARIN SOD (PORCINE) 5,000 UNIT/ML 1 ML VIAL SUBCUT SCH ×3 (05:40→21:12)
[2019-05-23] MEDS: PANTOPRAZOLE SODIUM 40 MG TABLET.DR PO SCH (05:40)
[2019-05-23] MEDS ORDERED: LABETALOL HCL INJ 20 MG/4 ML DISP.SYRIN IV PRN (08:26)
[2019-05-23] MEDS: IPRATROPIUM/ALBUTEROL 0.5-2.5 MG/3 ML AMPUL NEB SCH ×3 (08:48→20:20)
[2019-05-23 11:37] LABS: HEPATITIS C QUANTITATION HCV Not Detected IU/mL (.)
[2019-05-23] MEDS: HYDRALAZINE HCL INJ/PF 20 MG/1 ML SDV IV SCH ×2 (12:05→12:13)
[2019-05-23] MEDS: ASPIRIN 81 MG TABLET, ENT COATED PO SCH (12:14)
[2019-05-23] MEDS: THIAMINE HCL 100 MG TABLET PO SCH (12:14)
[2019-05-23] MEDS: VITAMIN B COMPLEX TABLET PO SCH (12:14)
[2019-05-23] MEDS: MULTIVITAMIN TABLET PO SCH (12:14)
[2019-05-23] MEDS: MINERAL OIL/PETROLATUM,WHITE CREAM 114 GM TP SCH (12:15)
[2019-05-23] MEDS: QUETIAPINE FUMARATE 150 MG PO SCH (12:16)
[2019-05-23] MEDS: PAROXETINE HCL 20 MG TABLET PO SCH ×2 (12:26)
[2019-05-23] MEDS: NITROGLYCERIN 15 MG (0.6 MG/1 HR) PATCH.TD24 TD SCH (12:43)
[2019-05-23] MEDS: FLUTICASONE/UMECLIDIN/VILANTER 100-62.5-25 MCG/DOSE IH SCH (12:45)
--- NOTE | 2019-05-23 13:43 | PDOC PROGRESS REPORT ---
Subjective Progress Note for:: 05/23/19 Subjective:: Patient is more awake today and attempting to talk to not making very clear statements. Hard to obtain subjective for patient. Reason For Visit: HEART FAILURE Physical Exam Vital Signs: Temp Pulse Resp BP Pulse Ox 98.6 F 91 24 H 179/68 H 96 05/23/19 04:43 05/23/19 08:48 05/23/19 12:47 05/23/19 04:43 05/23/19 12:47 Intake & Output 05/22/19 05/23/19 05/24/19 06:59 06:59 06:59 Intake Total 1542 1000 Output Total 3300 3300 2100 Balance -1758 -2300 -2100 Weight 127.2 kg 127.9 kg General appearance: PRESENT: no acute distress, cooperative Neck exam: ABSENT: JVD Respiratory exam: PRESENT: crackles, symmetrical, tachypnea, unlabored. ABSENT: wheezes Cardiovascular exam: PRESENT: RRR, +S1, +S2. ABSENT: tachycardia GI/Abdominal exam: PRESENT: normal bowel sounds, soft, tenderness. ABSENT: rebound, rigid Neurological exam: PRESENT: alert, awake, oriented to person, oriented to place, oriented to time Results Laboratory Results: 05/23/19 04:41 05/23/19 04:41 05/23/19 05/23/19 05/23/19 04:41 04:41 04:41 WBC 12.5 H RBC 3.96 L Hgb 10.0 L Hct 30.7 L MCV 78 L MCH 25.2 L MCHC 32.4 RDW 22.6 H Plt Count 169 Seg Neutrophils % Not Reportable Sodium 142.5 Potassium 4.1 Chloride 102 Carbon Dioxide 22 Anion Gap 19 BUN 79 H D Creatinine 3.52 H Est GFR ( Amer) 22 L Glucose 126 H Lactic Acid 1.2 Calcium 8.8 Phosphorus 4.9 H Magnesium 2.9 H Total Bilirubin 2.4 H AST 27 Alkaline Phosphatase 142 H Total Protein 6.7 Albumin 3.3 L 05/12/19 05/12/19 05/13/19 12:00 18:31 00:16 Creatine Kinase CK-MB (CK-2) Troponin I 0.039 0.041 0.039 NT-Pro-B Natriuret Pep 8970 H 05/13/19 05/14/19 05/19/19 09:35 04:26 17:45 Creatine Kinase 230 H CK-MB (CK-2) 4.88 H Troponin I 0.047 NT-Pro-B Natriuret Pep 75145 H Impressions: Renal Artery Duplex 05/20/19 06:00 IMPRESSION: Nondiagnostic study Chest X-Ray 05/20/19 09:58 IMPRESSION: Pulmonary edema pattern Assessment and Plan - Diagnosis (1) Acute on chronic renal failure Qualifiers: Acute renal failure type: with acute tubular necrosis Chronic kidney disease stage: stage 3 (moderate) Qualified Code(s): N17.0 - Acute kidney failure with tubular necrosis; N18.3 - Chronic kidney disease, stage 3 (moderate) Is this a current diagnosis for this admission?: Yes Plan: Suspecting cardiorenal causing ATN superimposed on CKD BUN improving with dialysis. Plan to dialyze again today. Still has oliguria. Put out 300 cc of urine yesterday. Nephrology following. (2) Acute metabolic encephalopathy Is this a current diagnosis for this admission?: Yes Plan: Altered mental status looks better today. More awake and actually attempting to converse. Suspecting uremic encephalopathy. We will continue to monitor for improvement with hemodialysis. (3) Acute respiratory failure with hypoxia Is this a current diagnosis for this admission?: Yes Plan: Secondary to acute on chronic systolic heart failure with pulmonary edema noted on chest x-ray today and severe pulmonary hypertension as well as underlying COPD. We will try to wean off BiPAP to nasal cannula today. (4) Acute exacerbation of congestive heart failure Qualifiers: Heart failure type: systolic Qualified Code(s): I50.23 - Acute on chronic systolic (congestive) heart failure Is this a current diagnosis for this admission?: Yes Plan: Acute exacerbation of systolic heart failure NYHA stage III. 05/12/2019 2D echo LVEF 25%. Grade 1/4 mild diastolic dysfunction. RSVP 96-100 mmHg. proBNP is 12,700. Chest x-ray pulmonary edema. We will continue to remove fluid through dialysis as patient is not having much urinary output from the suspected ATN. Hydralazine and lisinopril p.o. IV hydralazine and labetalol to help control hypertension if unable to take oral meds. (5) Scabies Is this a current diagnosis for this admission?: Yes Plan: Crusted scabies. Will do 7-day treatment with permethrin. (6) Cellulitis, leg Qualifiers: Laterality: unspecified laterality Qualified Code(s): L03.119 - Cellulitis of unspecified part of limb Is this a current diagnosis for this admission?: Yes Plan: Completed 10 days of antibiotics and specifically 8 days of cefepime for coverage of Acinetobacter, Staphylococcus and Pseudomonas from wound culture Received 3 days of IV clindamycin. (7) Peripheral vascular disease Is this a current diagnosis for this admission?: Yes Plan: Arterial Doppler positive for moderate hemodynamically significant lesion in the bilateral lower extremities on duplex imaging, focal stenosis identified. Significant arterial obstructive disease noted in the popliteal on the right infrageniculate vessel on the left. Renal arterial duplex show no significant renal artery stenosis. Vascular surgeon consulted and recommending outpatient follow-up. (8) COPD (chronic obstructive pulmonary disease) Qualifiers: COPD type: COPD with acute exacerbation Qualified Code(s): J44.1 - Chronic obstructive pulmonary disease with (acute) exacerbation Is this a current diagnosis for this admission?: Yes Plan: Nebs as needed. Nocturnal BiPAP. Patient's neighbor confirms that he uses oxygen at home but does not know how many liters. (9) Physical deconditioning Is this a current diagnosis for this admission?: Yes - Time Time Spent with patient: 15-24 minutes
--- NOTE | 2019-05-23 15:07 | PDOC PROGRESS REPORT ---
Subjective Progress Note for:: 05/23/19 Subjective:: I seen the patient during dialysis this morning. He is more awake and actually trying to talk although difficult to understand. He was waving his hands at me when I came into the room. He seems to be trying to answer my questions but incomprehensible at this time while he is on BiPAP. He tolerated dialysis very well without any problems. He continues to be oliguric though making only 300 mL of urine output for the past 24 hours. Reason For Visit: HEART FAILURE Physical Exam Vital Signs: Temp Pulse Resp BP Pulse Ox 98.6 F 91 26 H 179/68 H 97 05/23/19 04:43 05/23/19 08:48 05/23/19 08:48 05/23/19 04:43 05/23/19 08:48 Intake & Output 05/22/19 05/23/19 05/24/19 06:59 06:59 06:59 Intake Total 1542 1000 Output Total 3300 3300 Balance -1758 -2300 Weight 127.2 kg 127.9 kg Vitals during dialysis: Blood pressure 119/72, heart rate of 94, Saturation of 97% on BiPAP, Blood Flow Rate of 250 mL/Min and Dialysate Flow Rate of 600 mL/Min. Exam: General appearance: PRESENT: On BiPAP and more awake Head exam: PRESENT: atraumatic, normocephalic Eye exam: PRESENT: conjunctiva slightly pale, PERRLA. ABSENT: scleral icterus Neck exam: ABSENT: JVD Respiratory exam: PRESENT: Coarse breath sounds. ABSENT: crackles, rales, rhonchi, unlabored, wheezes Cardiovascular exam: PRESENT: Regular rate rhythm -+S1, +S2. ABSENT: diastolic murmur, systolic murmur GI/Abdominal exam: PRESENT: normal bowel sounds, soft. Less distended ABSENT: guarding, mass, tenderness Extremities exam: Improving bilateral grade 1 lower extremity pitting edema up to the thighs Neurological exam: PRESENT: More awake and trying to talk but currently incomprehensible Skin exam: PRESENT: dry, warm, Cardiovascular exam: PRESENT: +S1, +S2 GI/Abdominal exam: PRESENT: ascites, distended, firm, tenderness. ABSENT: guarding, soft Results Laboratory Results: 05/23/19 04:41 05/23/19 04:41 05/23/19 05/23/1920 04:41 04:41 04:41 WBC 12.5 H RBC 3.96 L Hgb 10.0 L Hct 30.7 L MCV 78 L MCH 25.2 L MCHC 32.4 RDW 22.6 H Plt Count 169 Seg Neutrophils % Not Reportable Sodium 142.5 Potassium 4.1 Chloride 102 Carbon Dioxide 22 Anion Gap 19 BUN 79 H D Creatinine 3.52 H Est GFR ( Amer) 22 L Glucose 126 H Lactic Acid 1.2 Calcium 8.8 Phosphorus 4.9 H Magnesium 2.9 H Total Bilirubin 2.4 H AST 27 Alkaline Phosphatase 142 H Total Protein 6.7 Albumin 3.3 L 05/12/19 05/12/19 05/13/19 12:00 18:31 00:16 Creatine Kinase CK-MB (CK-2) Troponin I 0.039 0.041 0.039 NT-Pro-B Natriuret Pep 8970 H 05/13/19 05/14/19 05/19/19 09:35 04:26 17:45 Creatine Kinase 230 H CK-MB (CK-2) 4.88 H Troponin I 0.047 NT-Pro-B Natriuret Pep [id number] H Impressions: Renal Artery Duplex 05/20/19 06:00 IMPRESSION: Nondiagnostic study Chest X-Ray 05/20/19 09:58 IMPRESSION: Pulmonary edema pattern Assessment & Plan - Diagnosis (1) Acute kidney injury superimposed on chronic kidney disease Is this a current diagnosis for this admission?: Yes Plan: This is most likely secondary to multifactorial acute tubular necrosis, currently oliguric with uremic symptoms. Multifactorial causes include poor renal perfusion secondary to congestive heart failure with very low ventricular ejection fraction, diuresis, hypertension, and concurrent infection. Patient has uremic symptoms including acute metabolic encephalopathy, asterixis and worsening pulmonary edema. These are all indications for acute renal replacement therapy. Patient would benefit from acute renal replacement therapy to hopefully alleviate all the above conditions. Baseline creatinine around 1.6-1.8. Kidney function appears better after dialysis yesterday as expected however patient is still uremic and oliguric. We will do dialysis today for 2.5 hours, using the patient's right femoral shad ter, with 3 potassium bath, blood flow rate of 250 mL per minute, dialysate flow rate of 600 mL per minute, ultrafiltration 2 L as tolerated, no heparin and no Procrit. Discussed treatment plan with our dialysis nurse. We are to maintain adequate blood pressure so ultrafiltration will be adjusted accordingly. I will reevaluate the patient on Sunday to see if he would further need hemodialysis. Continue to monitor kidney function on the weekend. (2) Metabolic encephalopathy Is this a current diagnosis for this admission?: Yes Plan: This is most likely secondary to uremia and hypoxia. Mental status seems to be improving after 2 dialysis treatments. (3) Acute combined systolic and diastolic congestive heart failure, NYHA class 4 Is this a current diagnosis for this admission?: Yes Plan: Patient has left ventricular ejection fraction of 25% and grade 1/4 diastolic dysfunction. Patient has been on IV dobutamine drip IV Lasix for the last few days and subsequently discontinued. Despite all this the patient continues to be short of breath. Cardiology is, Dr. Lara also following the patient. (4) Acute respiratory failure with hypoxia Is this a current diagnosis for this admission?: Yes Plan: This is secondary to congestive heart failure with increasing pulmonary edema. After treating hemodialysis with ultrafiltration, hopefully the patient can be weaned off his BiPAP. (5) Pulmonary hypertension Is this a current diagnosis for this admission?: Yes Plan: Very severe. (6) Hyperphosphatemia Is this a current diagnosis for this admission?: Yes Plan: Improved, currently at 4.9 from 5.6. (7) Hypermagnesemia Is this a current diagnosis for this admission?: Yes Plan: Due to ERNESTINE. Improved with magnesium of 2.9 from 3.4. (8) Anemia Is this a current diagnosis for this admission?: Yes Plan: Worsened by acute illness. Unchanged. (9) Cellulitis, leg Qualifiers: Laterality: unspecified laterality Qualified Code(s): L03.119 - Cellulitis of unspecified part of limb Is this a current diagnosis for this admission?: Yes Plan: Completed IV antibiotics per hospitalist service. (10) Foot ulcer, right Qualifiers: Non-pressure ulcer stage: unspecified non-pressure ulcer stage Qualified Code(s): L97.519 - Non-pressure chronic ulcer of other part of right foot with unspecified severity Is this a current diagnosis for this admission?: Yes (11) COPD (chronic obstructive pulmonary disease) Qualifiers: COPD type: COPD with acute exacerbation Qualified Code(s): J44.1 - Chronic obstructive pulmonary disease with (acute) exacerbation Is this a current diagnosis for this admission?: Yes (12) Peripheral vascular disease Is this a current diagnosis for this admission?: Yes Plan: Arterial duplex showed moderately hemodynamically significant lesions in bilateral lower extremities. (13) Stasis dermatitis of both legs Is this a current diagnosis for this admission?: Yes (14) Scabies Is this a current diagnosis for this admission?: Yes Plan: Being treated with permethrin by hospitalist. (15) Hearing loss Is this a current diagnosis for this admission?: Yes - Time Time with patient: 15-25 minutes
--- NOTE | 2019-05-23 15:22 | RADIOLOGY REPORT (SQ) ---
EXAM DESCRIPTION: KUB/ABDOMEN (SINGLE VIEW) COMPLETED DATE/TIME: 05/23/2019 3:03 pm REASON FOR STUDY: abd pain COMPARISON: None. NUMBER OF VIEWS: One view. TECHNIQUE: Supine radiographic image of the abdomen acquired. LIMITATIONS: None. FINDINGS: BOWEL GAS PATTERN: Normal bowel gas pattern. No dilated loops. CALCIFICATIONS: No suspicious calcifications. SOFT TISSUES: No gross mass or suggestion of organomegaly. HARDWARE: IVC filter overlies right L2-3 vertebral bodies. Catheter overlies right femoral vein and iliac veins to the level of the IVC BONES: No acute findings. Lumbar spondylosis. OTHER: No other significant finding. IMPRESSION: NO RADIOGRAPHIC EVIDENCE FOR ACUTE ABDOMINAL DISEASE. TECHNICAL DOCUMENTATION: JOB ID: [id number] 2010 [employer]- All Rights Reserved Reading location - IP/workstation name: [email or web address]
[2019-05-23] MEDS: PERMETHRIN 5% CREAM 60 GM TP SCH (17:15)
--- NOTE | 2019-05-23 17:46 | Progress Note ---
Provider Note Provider Note: CARDIOLOGY PROGRESS NOTE by Dr. Radha Lara on 05/23/2019. Subjective: The patient is very confused and also very severe hard of hearing and is very difficult to get a history from the patient. He does not appear to be in acute distress although he is slightly agitated. There is no arrhythmia seen on the monitor. The patient did have dialysis today. PHYSICAL EXAMINATION: The patient appears to be chronically ill. Selected Entries 05/23/19 05/23/19 19:58 20:20 Temperature 99.3 F Temperature Axillary Source Pulse Rate 95 Respiratory 20 Rate Blood Pressure 117/103 H Blood Pressure 107 Mean BP Location Left Arm BP Position Sitting O2 Sat by Pulse 90 L Oximetry Fraction of 32 Inspired Oxygen (FIO2) Oxygen Flow 5.50 Rate Oxygen Delivery Nasal Cannula Method HEAD: Head is atraumatic normocephalic. Eyes: Pupils are equal round regular reactive light accommodation extraocular movements are normal there is no congenital pallor there is no scleral icterus. Ears: External auditory canals are clear, there are no lesions of the pinna. Nose: No deviated nasal septum and no inflammation of the nasal mucous membrane. Mouth: Mucous membranes of mouth are moist tongue is moist there is no ulcers there is no bleeding from the gums. Throat: There is no redness of the oropharynx there is no exudates. Skin: There is no petechia or ecchymosis there is no skin lesions or skin rashes. Neck: Neck is supple there is JVD present. Carotids equal there is no bruit there is no lymphadenopathy there is no neck stiffness. There is no goiter trachea central lungs: Lungs show diminished air entry and prolonged expiration. Scattered rhonchi and wheezing present. There is bibasilar rales of CHF. There is no chest wall tenderness. HEART: S1-S2 is heard there is no S3 gallop there is no S4 gallop S1 is of normal intensity. There is no rub. The systolic murmur of MR and TR. There is no prosthetic valve clicks heard. Abdomen: Abdomen is soft, mildly distended, no definite ascites. There is no hepatosplenomegaly. Bowel sounds well heard there is no tender areas of masses. There is no rebound guarding or rigidity. Extremities: Femorals are slightly diminished, there is no bruits. Leg pulses are diminished. There is trace 2- edema, with venous stasis dermatitis. There is no DVT or cellulitis there is no cyanosis or clubbing there is no DVT or cellulitis. There is no calf tenderness. OUTDOOR RECREATION SPECIALIST: The patient is awake alert oriented 3 with no focal deficits. But in spite of this he has slow mentation. Psychiatric: The patient judgment and insight are intact and his affect is flat. The patient's 24-hour intake is 225 mL. His 24-hour output is 2250 mL. 05/21/19 05/21/19 05/23/19 04:23 04:23 04:41 WBC RBC Hgb Hct MCV MCH MCHC Plt Count Sodium 142.5 Potassium 4.1 Chloride 102 Carbon Dioxide 22 Anion Gap 19 BUN 79 H D Creatinine 3.52 H Est GFR ( Amer) 22 L Est GFR (MDRD) Non-Af 18 L Glucose 126 H Lactic Acid Calcium 8.8 Phosphorus 4.9 H Magnesium 2.9 H Total Bilirubin 2.4 H Direct Bilirubin 1.7 H Neonat Total Bilirubin Not Reportable Neonat Direct Bilirubin Not Reportable Neonat Indirect Bili Not Reportable AST 27 ALT 14 Alkaline Phosphatase 142 H Hep Bs Antigen Negative Hep Bs Antibody, Quant <3.1 L HCV Quantitation HCV Not Detected 05/23/19 05/23/19 04:41 04:41 WBC 12.5 H RBC 3.96 L Hgb 10.0 L Hct 30.7 L MCV 78 L MCH 25.2 L MCHC 32.4 Plt Count 169 Sodium Potassium Chloride Carbon Dioxide Anion Gap BUN Creatinine Est GFR ( Amer) Est GFR (MDRD) Non-Af Glucose Lactic Acid 1.2 Calcium Phosphorus Magnesium Total Bilirubin Direct Bilirubin Neonat Total Bilirubin Neonat Direct Bilirubin Neonat Indirect Bili AST ALT Alkaline Phosphatase Hep Bs Antigen Hep Bs Antibody, Quant HCV Quantitation Chest X-Ray 05/12/19 11:53 IMPRESSION: No acute cardiopulmonary process. Chest X-Ray 05/14/19 00:00 IMPRESSION: No acute cardiopulmonary process. Chest X-Ray 05/15/19 15:34 IMPRESSION: Right jugular central line tip SVC. No Pneumothorax Renal Artery Duplex 05/20/19 06:00 IMPRESSION: Nondiagnostic study Chest X-Ray 05/20/19 09:58 IMPRESSION: Pulmonary edema pattern KUB X-Ray 05/23/19 00:00 IMPRESSION: NO RADIOGRAPHIC EVIDENCE FOR ACUTE ABDOMINAL DISEASE. IMPRESSION/RECOMMENDATION: 1. Acute respiratory failure secondary to combination of acute on chronic systolic heart failure, acute renal failure causing volume overload, acute exacerbation of COPD, and severe pulmonary hypertension. Continue BiPAP and oxygen support. 2. Acute on chronic systolic heart failure. Patient has been placed on fluid restriction of 1500 mL each 24 hours. The patient is off inotropes and IV nitroglycerin. He is on topical nitrates and IV hydralazine. His Entresto has been stopped, but still the patient renal function is deteriorating. Will get studies for renal artery stenosis given the fact that the patient has renal failure and significant peripheral vascular disease. At present the patient is unable to take anything p.o. and hence there is p.o. medications are on hold. Hydralazine has been converted to IV route. 3. Acute exacerbation COPD: Consider antibiotics. Continue respiratory treatments. This is improved. 4. Hypertension: At present blood pressure reasonable7 5. Severe pulmonary hypertension: The dobutamine the IV nitroglycerin and hydralazine should help. Later we will see the feasibility of starting sildenafil. 6. Acute on chronic renal failure. Avoid nephrotoxic drugs. The patient has been started on dialysis today. 7. Bipolar disorder 8. Tobacco abuse disorder. 9 coronary artery disease: History of coronary bypass graft surgery: No angina and troponin so far is not elevated. 10. Peripheral vascular disease: This will be addressed later on. 11. History of valvular repair: Details not available. Try to contact [facility] but they say they have not heard of the patient, and have no records on him. 12. Severe hearing loss: Medications reviewed. Medical regimen and management plan discussed with attending physician. Discussed with nephrology. Medical decision making is of high complexity. 40 minutes spent as patient more than 50% time spent in direct patient care.
[2019-05-23] MEDS: QUETIAPINE FUMARATE 25 MG TABLET PO PRN (21:17)
[2019-05-23] MEDS: QUETIAPINE FUMARATE 300 MG PO SCH (21:17)
[2019-05-24] MEDS: HYDRALAZINE HCL INJ/PF 20 MG/1 ML SDV IV SCH ×4 (00:45→17:37)
[2019-05-24 03:00] LABS: ALKALINE PHOSPHATASE 136 U/L (38-126); ANION GAP 12 (5-19); ASPARTATE AMINO TRANSFERASE 23 U/L (17-59); BILIRUBIN,DIRECT 1.2 mg/dL (0.0-0.4); BLOOD UREA NITROGEN 69 mg/dL (7-20); CALCIUM 8.8 mg/dL (8.4-10.2); CARBON DIOXIDE 27 mmol/L (22-30); CHLORIDE 102 mmol/L (98-107); GLUCOSE 136 mg/dL (75-110); POTASSIUM 3.9 mmol/L (3.6-5.0); TOTAL PROTEIN 6.1 g/dL (6.3-8.2)
[2019-05-24] MEDS: HEPARIN SOD (PORCINE) 5,000 UNIT/ML 1 ML VIAL SUBCUT SCH ×3 (05:48→21:33)
[2019-05-24] MEDS: PANTOPRAZOLE SODIUM 40 MG TABLET.DR PO SCH (05:59)
[2019-05-24 06:27] LABS: HEMATOCRIT 28.1 % (37.9-51.0); HEMOGLOBIN 9.4 g/dL (13.5-17.0); MEAN CORPUSCULAR HEMOGLOBIN 25.7 pg (27.0-33.4); MEAN CORPUSCULAR HGB CONC 33.4 g/dL (32.0-36.0); MEAN CORPUSCULAR VOLUME 77 fl (80-97); PLATELET COUNT 170 10^3/uL (150-450); RED BLOOD COUNT 3.64 10^6/uL (4.35-5.55); WHITE BLOOD COUNT 10.4 10^3/uL (4.0-10.5)
[2019-05-24 06:42] LABS: ANION GAP 14 (5-19); BLOOD UREA NITROGEN 74 mg/dL (7-20); CALCIUM 8.9 mg/dL (8.4-10.2); CARBON DIOXIDE 27 mmol/L (22-30); CHLORIDE 100 mmol/L (98-107); GLUCOSE 137 mg/dL (75-110); PHOSPHORUS 4.8 mg/dL (2.5-4.5); POTASSIUM 3.8 mmol/L (3.6-5.0)
[2019-05-24] MEDS: IPRATROPIUM/ALBUTEROL 0.5-2.5 MG/3 ML AMPUL NEB SCH ×3 (08:12→20:55)
[2019-05-24 08:15] LABS: ABSOLUTE LYMPHOCYTES# (MANUAL) 0.2 10^3/uL (0.5-4.7); ABSOLUTE MONOCYTES # (MANUAL) 0.2 10^3/uL (0.1-1.4); BASOPHILS % (MANUAL) 0 % (0-2); EOSINOPHILS % (MANUAL) 1 % (0-6); LYMPHOCYTES % (MANUAL) 2 % (13-45); MONOCYTES % (MANUAL) 2 % (3-13); SEGMENTED NEUTROPHILS % (MAN) 95 % (42-78); TOTAL CELLS COUNTED 100
[2019-05-24 08:17] LABS: ANISOCYTOSIS 3+; HYPOCHROMASIA SLIGHT; OVALOCYTES SLIGHT; PLATELET COMMENT ADEQUATE
[2019-05-24] MEDS: VITAMIN B COMPLEX TABLET PO SCH (10:37)
[2019-05-24] MEDS: MULTIVITAMIN TABLET PO SCH (10:37)
[2019-05-24] MEDS: THIAMINE HCL 100 MG TABLET PO SCH (10:37)
[2019-05-24] MEDS: ASPIRIN 81 MG TABLET, ENT COATED PO SCH (10:37)
[2019-05-24] MEDS: FLUTICASONE/UMECLIDIN/VILANTER 100-62.5-25 MCG/DOSE IH SCH (10:37)
[2019-05-24] MEDS: QUETIAPINE FUMARATE 150 MG PO SCH (10:37)
[2019-05-24] MEDS: PAROXETINE HCL 20 MG TABLET PO SCH ×2 (10:38)
[2019-05-24] MEDS: NITROGLYCERIN 15 MG (0.6 MG/1 HR) PATCH.TD24 TD SCH (10:38)
[2019-05-24] MEDS: MINERAL OIL/PETROLATUM,WHITE CREAM 114 GM TP SCH (10:39)
[2019-05-24] MEDS: PERMETHRIN 5% CREAM 60 GM TP SCH (10:39)
--- NOTE | 2019-05-24 11:10 | PDOC PROGRESS REPORT ---
Subjective Progress Note for:: 05/24/19 Subjective:: Patient's mental status continues to improve. Today he is awake and talking. Requesting music through headphones to help him maintain his peace of mind. Had some difficulty swallowing thin liquids today and did spit back up his Pepsi. Otherwise states that his breathing is better. Denies any pain. Reason For Visit: HEART FAILURE Physical Exam Vital Signs: Temp Pulse Resp BP Pulse Ox 98.9 F 103 H 20 164/69 H 92 05/24/19 08:26 05/24/19 08:26 05/24/19 08:26 05/24/19 08:26 05/24/19 08:26 Intake & Output 05/23/19 05/24/19 05/25/19 06:59 06:59 06:59 Intake Total 1000 225 Output Total 3300 2250 Balance -2299 -2024 Weight 127.9 kg 129.7 kg General appearance: PRESENT: no acute distress, cooperative, morbidly obese Respiratory exam: PRESENT: crackles, symmetrical, unlabored. ABSENT: tachypnea, wheezes Cardiovascular exam: PRESENT: RRR, +S1, +S2. ABSENT: tachycardia GI/Abdominal exam: PRESENT: normal bowel sounds, soft. ABSENT: rebound, rigid, tenderness Extremities exam: PRESENT: pedal edema, +1 edema, other - Crusted lesions on legs. ABSENT: calf tenderness, +2 edema Neurological exam: PRESENT: alert, awake, oriented to person, oriented to place Skin exam: PRESENT: rash Results Laboratory Results: 05/24/19 06:05 05/24/19 06:05 05/23/19 05/24/19 05/24/19 16:30 01:40 06:05 WBC 10.4 RBC 3.64 L Hgb 9.4 L Hct 28.1 L MCV 77 L MCH 25.7 L MCHC 33.4 RDW 23.0 H Plt Count 170 Seg Neutrophils % Not Reportable Carbonic Acid Cancelled HCO3/H2CO3 Ratio Cancelled ABG pH Cancelled ABG pCO2 Cancelled ABG pO2 Cancelled ABG HCO3 Cancelled ABG O2 Saturation Cancelled ABG Base Excess Cancelled FiO2 Cancelled Sodium 140.5 Potassium 3.9 Chloride 102 Carbon Dioxide 27 Anion Gap 12 BUN 69 H Creatinine 3.41 H Est GFR ( Amer) 22 L Glucose 136 H Calcium 8.8 Phosphorus Magnesium 2.9 H Total Bilirubin 2.0 H AST 23 Alkaline Phosphatase 136 H Total Protein 6.1 L Albumin 3.0 L 05/24/19 06:05 WBC RBC Hgb Hct MCV MCH MCHC RDW Plt Count Seg Neutrophils % Carbonic Acid HCO3/H2CO3 Ratio ABG pH ABG pCO2 ABG pO2 ABG HCO3 ABG O2 Saturation ABG Base Excess FiO2 Sodium 141.1 Potassium 3.8 Chloride 100 Carbon Dioxide 27 Anion Gap 14 BUN 74 H Creatinine 3.73 H Est GFR ( Amer) 20 L Glucose 137 H Calcium 8.9 Phosphorus 4.8 H Magnesium Total Bilirubin AST Alkaline Phosphatase Total Protein Albumin 05/12/19 05/12/19 05/13/19 12:00 18:31 00:16 Creatine Kinase CK-MB (CK-2) Troponin I 0.039 0.041 0.039 NT-Pro-B Natriuret Pep 8970 H 05/13/19 05/14/19 05/19/19 09:35 04:26 17:45 Creatine Kinase 230 H CK-MB (CK-2) 4.88 H Troponin I 0.047 NT-Pro-B Natriuret Pep 78384 H Impressions: Renal Artery Duplex 05/20/19 06:00 IMPRESSION: Nondiagnostic study Chest X-Ray 05/20/19 09:58 IMPRESSION: Pulmonary edema pattern KUB X-Ray 05/23/19 00:00 IMPRESSION: NO RADIOGRAPHIC EVIDENCE FOR ACUTE ABDOMINAL DISEASE. Assessment and Plan - Diagnosis (1) Acute on chronic renal failure Qualifiers: Acute renal failure type: with acute tubular necrosis Chronic kidney disease stage: stage 3 (moderate) Qualified Code(s): N17.0 - Acute kidney failure with tubular necrosis; N18.3 - Chronic kidney disease, stage 3 (moderate) Is this a current diagnosis for this admission?: Yes Plan: Suspecting cardiorenal causing ATN superimposed on CKD Uremia has improved after being dialyzed 3 days in a row. Last dialyzed 05/23/2019. Still oliguric with only 150 cc of urine yesterday. Continue to monitor I's and O's strictly. Nephrology following. (2) Acute metabolic encephalopathy Is this a current diagnosis for this admission?: Yes Plan: Uremic encephalopathy. Currently significantly improved and pretty much resolved as patient is back to his baseline mental status. (3) Acute respiratory failure with hypoxia Is this a current diagnosis for this admission?: Yes Plan: Secondary to acute on chronic systolic heart failure with pulmonary edema noted on chest x-ray today and severe pulmonary hypertension as well as underlying COPD. Patient has tolerated being off BiPAP since yesterday afternoon. Gets back on BiPAP nocturnally. Will maintain on nasal cannula through the day and nocturnal BiPAP. (4) Acute exacerbation of congestive heart failure Qualifiers: Heart failure type: systolic Qualified Code(s): I50.23 - Acute on chronic systolic (congestive) heart failure Is this a current diagnosis for this admission?: Yes Plan: Acute exacerbation of systolic heart failure NYHA stage III. 05/12/2019 2D echo LVEF 25%. Grade 1/4 mild diastolic dysfunction. RSVP 96-100 m mHg. proBNP is 12,700. Chest x-ray pulmonary edema. We will continue to remove fluid through dialysis as patient is not having much urinary output from the suspected ATN. Hydralazine and nitroglycerin patch. I will add small dose of Coreg today and uptitrate. Hypertension noted today. (5) Scabies Is this a current diagnosis for this admission?: Yes Plan: Crusted scabies. Will do 7-day treatment with permethrin. Day 3. (6) Cellulitis, leg Qualifiers: Laterality: unspecified laterality Qualified Code(s): L03.119 - Cellulitis of unspecified part of limb Is this a current diagnosis for this admission?: Yes Plan: Completed 10 days of antibiotics and specifically 8 days of cefepime for coverage of Acinetobacter, Staphylococcus and Pseudomonas from wound culture Received 3 days of IV clindamycin. (7) Peripheral vascular disease Is this a current diagnosis for this admission?: Yes Plan: Arterial Doppler positive for moderate hemodynamically significant lesion in the bilateral lower extremities on duplex imaging, focal stenosis identified. Significant arterial obstructive disease noted in the popliteal on the right in frageniculate vessel on the left. Renal arterial duplex show no significant renal artery stenosis. Vascular surgeon consulted and recommending outpatient follow-up. (8) COPD (chronic obstructive pulmonary disease) Qualifiers: COPD type: COPD with acute exacerbation Qualified Code(s): J44.1 - Chronic obstructive pulmonary disease with (acute) exacerbation Is this a current diagnosis for this admission?: Yes Plan: Nebs as needed. Nocturnal BiPAP. Patient's neighbor confirms that he uses oxygen at home but does not know how many liters. (9) Physical deconditioning Is this a current diagnosis for this admission?: Yes Plan: Due to multiple chronic underlying end-stage comorbidities. Unlikely patient will be able to take care of herself independently. Patient is a good candidate for long-term placement. Discharge planning aware. - Time Time Spent with patient: 15-24 minutes
[2019-05-24] MEDS ORDERED: CARVEDILOL 3.125 MG TABLET PO ONE (11:30)
--- NOTE | 2019-05-24 15:57 | Progress Note ---
Provider Note Provider Note: CARDIOLOGY PROGRESS NOTE by Dr. Radha Lara on 05/24/2019. SUBJECTIVE: The patient is more awake but still unable to communicate with the patient due to his hearing loss. The patient does not appear to be short of breath and is able to lie down flat without orthopnea. There is no arrhythmia seen on the monitor. The patient seems to communicate that he has no chest pain or shortness of breath at rest. In spite of his dialysis is the patient's BUN is increased to 74 and creatinine is gone up to 3.73. But his urine output remains good. PHYSICAL EXAMINATION: The patient appears to be chronically ill. Selected Entries 05/24/19 08:26 Temperature 98.9 F Temperature Oral Source Pulse Rate 103 H Respiratory 20 Rate Blood Pressure 164/69 H Blood Pressure 100 Mean BP Location Left Arm O2 Sat by Pulse 92 Oximetry Oxygen Flow 6.00 Rate Oxygen Delivery Nasal Cannula Method HEAD: Head is atraumatic normocephalic. Eyes: Pupils are equal round regular reactive light accommodation extraocular movements are normal there is no congenital pallor there is no scleral icterus. Ears: External auditory canals are clear, there are no lesions of the pinna. Nose: No deviated nasal septum and no inflammation of the nasal mucous membrane. Mouth: Mucous membranes of mouth are moist tongue is moist there is no ulcers there is no bleeding from the gums. Throat: There is no redness of the oropharynx there is no exudates. Skin: There is no petechia or ecchymosis there is no skin lesions or skin rashes. Neck: Neck is supple there is JVD present. Carotids equal there is no bruit there is no lymphadenopathy there is no neck stiffness. There is no goit er trachea central lungs: Lungs show diminished air entry and prolonged expiration. Scattered rhonchi and wheezing present. There is no no bibasilar rales of CHF. Few dry crackles in the right base. There is no chest wall tenderness. HEART: S1-S2 is heard there is no S3 gallop there is no S4 gallop S1 is of normal intensity. There is no rub. The systolic murmur of MR and TR. There is no prosthetic valve clicks heard. Abdomen: Abdomen is soft, mildly distended, no definite ascites. There is no hepatosplenomegaly. Bowel sounds well heard there is no tender areas of masses. There is no rebound guarding or rigidity. Extremities: Femorals are slightly diminished, there is no bruits. Leg pulses are diminished. There is trace 2- edema, with venous stasis dermatitis. There is no DVT or cellulitis there is no cyanosis or clubbing there is no DVT or cellulitis. There is no calf tenderness. LEGAL AIDE: The patient is awake alert oriented 3 with no focal deficits. But in spite of this he has slow mentation. Psychiatric: The patient judgment and insight are intact and his affect is flat. The patient's 24-hour intake is 225 mL. His 24-hour output is 2250 mL. Labs- Entire Visit 05/12/19 05/12/19 05/12/19 12:00 12:00 12:00 WBC 7.4 RBC 4.95 Hgb 12.6 L Hct 39.1 MCV 79 L MCH 25.5 L MCHC 32.3 RDW 23.6 H Plt Count 233 Lymph % (Auto) 6.3 L Mclennan % (Auto) 7.6 Eos % (Auto) 3.1 Baso % (Auto) 0.7 Absolute Neuts (auto) 6.1 Absolute Lymphs (auto) 0.5 Absolute Monos (auto) 0.6 Absolute Eos (auto) 0.2 Absolute Basos (auto) 0.1 Total Counted Seg Neutrophils % 82.3 H Seg Neuts % (Manual) Band Neutrophils % Lymphocytes % (Manual) Monocytes % (Manual) Eosinophils % (Manual) Basophils % (Manual) Abs Neuts (Manual) Abs Lymphs (Manual) Abs Monocytes (Manual) Absolute Eos (Manual) Abs Basophils (Manual) Nucleated RBCs Toxic Granulation Platelet Comment Polychromasia Hypochromasia Poikilocytosis Anisocytosis Microcytosis Target Cells Tear Drop Cells Ovalocytes Firestone Cells Schistocytes ESR PT 16.7 H INR 1.35 Carbonic Acid HCO3/H2CO3 Ratio ABG pH ABG pCO2 ABG pO2 ABG HCO3 ABG Total CO2 ABG O2 Saturation ABG Base Excess VBG pH VBG pCO2 VBG HCO3 VBG Base Excess FiO2 Sodium 137.9 Potassium 4.9 Chloride 106 Carbon Dioxide 20 L Anion Gap 12 BUN 28 H Creatinine 1.61 H Est GFR ( Amer) 53 L Est GFR (MDRD) Non-Af 44 L Glucose 97 POC Glucose Hemoglobin A1c % Lactic Acid Calcium 9.2 Phosphorus Magnesium Total Bilirubin 3.1 H Direct Bilirubin 1.4 H Neonat Total Bilirubin Not Reportable Neonat Direct Bilirubin Not Reportable Neonat Indirect Bili Not Reportable AST 24 ALT 12 Alkaline Phosphatase 200 H Creatine Kinase CK-MB (CK-2) Troponin I C-Reactive Protein NT-Pro-B Natriuret Pep Total Protein 7.0 Albumin 3.9 Triglycerides Cholesterol LDL Cholesterol Direct VLDL Cholesterol HDL Cholesterol TSH Urine Color Urine Appearance Urine pH Ur Specific [place] Urine Protein Urine Glucose (UA) Urine Ketones Urine Blood Urine Nitrite Urine Bilirubin Urine Urobilinogen Ur Leukocyte Esterase Urine WBC (Auto) Urine RBC (Auto) U Hyaline Cast (Auto) Urine Bacteria (Auto) Urine Red Cell Clumps Urine WBC Clumps Squamous Epi Cells Auto U Non-Squamous Epis Auto Calcium Carbonate Cryst Calcium Phosphate Cryst Calcium Oxalate Cr Auto Leucine Crystals Cystine Crystals Uric Acid Cryst (Auto) Triple Phos Cryst (Auto) Tyrosine Crystals Amorphous Sediment Auto Cellular Casts Epithelial Casts (Auto) Fatty Casts Granular Casts (Auto) Waxy Casts (Auto) Broad Casts RBC Casts (Auto) WBC Casts (Auto) Urine Mucus (Auto) U Trichomonas (Auto) Ur Yeast w Hyphae Urine Yeast (Budding) Urine Ascorbic Acid Hep Bs Antigen Hep Bs Antibody, Quant Hep B Core Total Ab HCV Quantitation HCV RNA PCR Test Info 05/12/19 05/12/19 05/12/19 12:00 12:00 12:00 WBC RBC Hgb Hct MCV MCH MCHC RDW Plt Count Lymph % (Auto) Mclennan % (Auto) Eos % (Auto) Baso % (Auto) Absolute Neuts (auto) Absolute Lymphs (auto) Absolute Monos (auto) Absolute Eos (auto) Absolute Basos (auto) Total Counted Seg Neutrophils % Seg Neuts % (Manual) Band Neutrophils % Lymphocytes % (Manual) Monocytes % (Manual) Eosinophils % (Manual) Basophils % (Manual) Abs Neuts (Manual) Abs Lymphs (Manual) Abs Monocytes (Manual) Absolute Eos (Manual) Abs Basophils (Manual) Nucleated RBCs Toxic Granulation Platelet Comment Polychromasia Hypochromasia Poikilocytosis Anisocytosis Microcytosis Target Cells Tear Drop Cells Ovalocytes Dell Cells Schistocytes ESR PT INR Carbonic Acid HCO3/H2CO3 Ratio ABG pH ABG pCO2 ABG pO2 ABG HCO3 ABG Total CO2 ABG O2 Saturation ABG Base Excess VBG pH 7.33 VBG pCO2 43.4 VBG HCO3 22.2 VBG Base Excess -3.8 FiO2 Sodium Potassium Chloride Carbon Dioxide Anion Gap BUN Creatinine Est GFR ( Amer) Est GFR (MDRD) Non-Af Glucose POC Glucose Hemoglobin A1c % Lactic Acid 2.9 H Calcium Phosphorus Magnesium Total Bilirubin Direct Bilirubin Neonat Total Bilirubin Neonat Direct Bilirubin Neonat Indirect Bili AST ALT Alkaline Phosphatase Creatine Kinase CK-MB (CK-2) Troponin I 0.039 C-Reactive Protein NT-Pro-B Natriuret Pep 8970 H Total Protein Albumin Triglycerides Cholesterol LDL Cholesterol Direct VLDL Cholesterol HDL Cholesterol TSH Urine Color Urine Appearance Urine pH Ur Specific [place] Urine Protein Urine Glucose (UA) Urine Ketones Urine Blood Urine Nitrite Urine Bilirubin Urine Urobilinogen Ur Leukocyte Esterase Urine WBC (Auto) Urine RBC (Auto) U Hyaline Cast (Auto) Urine Bacteria (Auto) Urine Red Cell Clumps Urine WBC Clumps Squamous Epi Cells Auto U Non-Squamous Epis Auto Calcium Carbonate Cryst Calcium Phosphate Cryst Calcium Oxalate Cr Auto Leucine Crystals Cystine Crystals Uric Acid Cryst (Auto) Triple Phos Cryst (Auto) Tyrosine Crystals Amorphous Sediment Auto Cellular Casts Epithelial Casts (Auto) Fatty Casts Granular Casts (Auto) Waxy Casts (Auto) Broad Casts RBC Casts (Auto) WBC Casts (Auto) Urine Mucus (Auto) U Trichomonas (Auto) Ur Yeast w Hyphae Urine Yeast (Budding) Urine Ascorbic Acid Hep Bs Antigen Hep Bs Antibody, Quant Hep B Core Total Ab HCV Quantitation HCV RNA PCR Test Info 05/12/19 05/12/19 05/12/19 14:50 17:18 18:31 WBC RBC Hgb Hct MCV MCH MCHC RDW Plt Count Lymph % (Auto) Mclennan % (Auto) Eos % (Auto) Baso % (Auto) Absolute Neuts (auto) Absolute Lymphs (auto) Absolute Monos (auto) Absolute Eos (auto) Absolute Basos (auto) Total Counted Seg Neutrophils % Seg Neuts % (Manual) Band Neutrophils % Lymphocytes % (Manual) Monocytes % (Manual) Eosinophils % (Manual) Basophils % (Manual) Abs Neuts (Manual) Abs Lymphs (Manual) Abs Monocytes (Manual) Absolute Eos (Manual) Abs Basophils (Manual) Nucleated RBCs Toxic Granulation Platelet Comment Polychromasia Hypochromasia Poikilocytosis Anisocytosis Microcytosis Target Cells Tear Drop Cells Ovalocytes Firestone Cells Schistocytes ESR PT INR Carbonic Acid 0.82 L HCO3/H2CO3 Ratio 21:1 ABG pH 7.42 ABG pCO2 27.4 L ABG pO2 70.6 L ABG HCO3 17.5 L ABG Total CO2 18.3 L ABG O2 Saturation 94.8 ABG Base Excess -5.4 VBG pH VBG pCO2 VBG HCO3 VBG Base Excess FiO2 5L Sodium Potassium Chloride Carbon Dioxide Anion Gap BUN Creatinine Est GFR ( Amer) Est GFR (MDRD) Non-Af Glucose POC Glucose Hemoglobin A1c % Lactic Acid 3.1 H 3.7 H Calcium Phosphorus Magnesium Total Bilirubin Direct Bilirubin Neonat Total Bilirubin Neonat Direct Bilirubin Neonat Indirect Bili AST ALT Alkaline Phosphatase Creatine Kinase CK-MB (CK-2) Troponin I C-Reactive Protein NT-Pro-B Natriuret Pep Total Protein Albumin Triglycerides Cholesterol LDL Cholesterol Direct VLDL Cholesterol HDL Cholesterol TSH Urine Color Urine Appearance Urine pH Ur Specific [place] Urine Protein Urine Glucose (UA) Urine Ketones Urine Blood Urine Nitrite Urine Bilirubin Urine Urobilinogen Ur Leukocyte Esterase Urine WBC (Auto) Urine RBC (Auto) U Hyaline Cast (Auto) Urine Bacteria (Auto) Urine Red Cell Clumps Urine WBC Clumps Squamous Epi Cells Auto U Non-Squamous Epis Auto Calcium Carbonate Cryst Calcium Phosphate Cryst Calcium Oxalate Cr Auto Leucine Crystals Cystine Crystals Uric Acid Cryst (Auto) Triple Phos Cryst (Auto) Tyrosine Crystals Amorphous Sediment Auto Cellular Casts Epithelial Casts (Auto) Fatty Casts Granular Casts (Auto) Waxy Casts (Auto) Broad Casts RBC Casts (Auto) WBC Casts (Auto) Urine Mucus (Auto) U Trichomonas (Auto) Ur Yeast w Hyphae Urine Yeast (Budding) Urine Ascorbic Acid Hep Bs Antigen Hep Bs Antibody, Quant Hep B Core Total Ab HCV Quantitation HCV RNA PCR Test Info 05/12/19 05/13/19 05/13/19 18:31 00:16 05:26 WBC RBC Hgb Hct MCV MCH MCHC RDW Plt Count Lymph % (Auto) Mclennan % (Auto) Eos % (Auto) Baso % (Auto) Absolute Neuts (auto) Absolute Lymphs (auto) Absolute Monos (auto) Absolute Eos (auto) Absolute Basos (auto) Total Counted Seg Neutrophils % Seg Neuts % (Manual) Band Neutrophils % Lymphocytes % (Manual) Monocytes % (Manual) Eosinophils % (Manual) Basophils % (Manual) Abs Neuts (Manual) Abs Lymphs (Manual) Abs Monocytes (Manual) Absolute Eos (Manual) Abs Basophils (Manual) Nucleated RBCs Toxic Granulation Platelet Comment Polychromasia Hypochromasia Poikilocytosis Anisocytosis Microcytosis Target Cells Tear Drop Cells Ovalocytes Firestone Cells Schistocytes ESR PT INR Carbonic Acid HCO3/H2CO3 Ratio ABG pH ABG pCO2 ABG pO2 ABG HCO3 ABG Total CO2 ABG O2 Saturation ABG Base Excess VBG pH VBG pCO2 VBG HCO3 VBG Base Excess FiO2 Sodium 137.1 Potassium 3.8 D Chloride 102 Carbon Dioxide 20 L Anion Gap 15 BUN 31 H Creatinine 1.72 H Est GFR ( Amer) 49 L Est GFR (MDRD) Non-Af 41 L Glucose 181 H POC Glucose Hemoglobin A1c % Lactic Acid Calcium 9.0 Phosphorus Magnesium Total Bilirubin Direct Bilirubin Neonat Total Bilirubin Neonat Direct Bilirubin Neonat Indirect Bili AST ALT Alkaline Phosphatase Creatine Kinase CK-MB (CK-2) Troponin I 0.041 0.039 C-Reactive Protein NT-Pro-B Natriuret Pep Total Protein Albumin Triglycerides 70 Cholesterol 159.24 LDL Cholesterol Direct 119 H VLDL Cholesterol 14.0 HDL Cholesterol 36 L TSH Urine Color Urine Appearance Urine pH Ur Specific [place] Urine Protein Urine Glucose (UA) Urine Ketones Urine Blood Urine Nitrite Urine Bilirubin Urine Urobilinogen Ur Leukocyte Esterase Urine WBC (Auto) Urine RBC (Auto) U Hyaline Cast (Auto) Urine Bacteria (Auto) Urine Red Cell Clumps Urine WBC Clumps Squamous Epi Cells Auto U Non-Squamous Epis Auto Calcium Carbonate Cryst Calcium Phosphate Cryst Calcium Oxalate Cr Auto Leucine Crystals Cystine Crystals Uric Acid Cryst (Auto) Triple Phos Cryst (Auto) Tyrosine Crystals Amorphous Sediment Auto Cellular Casts Epithelial Casts (Auto) Fatty Casts Granular Casts (Auto) Waxy Casts (Auto) Broad Casts RBC Casts (Auto) WBC Casts (Auto) Urine Mucus (Auto) U Trichomonas (Auto) Ur Yeast w Hyphae Urine Yeast (Budding) Urine Ascorbic Acid Hep Bs Antigen Hep Bs Antibody, Quant Hep B Core Total Ab HCV Quantitation HCV RNA PCR Test Info 05/13/19 05/13/19 05/13/19 05:26 05:26 09:35 WBC RBC Hgb Hct MCV MCH MCHC RDW Plt Count Lymph % (Auto) Mclennan % (Auto) Eos % (Auto) Baso % (Auto) Absolute Neuts (auto) Absolute Lymphs (auto) Absolute Monos (auto) Absolute Eos (auto) Absolute Basos (auto) Total Counted Seg Neutrophils % Seg Neuts % (Manual) Band Neutrophils % Lymphocytes % (Manual) Monocytes % (Manual) Eosinophils % (Manual) Basophils % (Manual) Abs Neuts (Manual) Abs Lymphs (Manual) Abs Monocytes (Manual) Absolute Eos (Manual) Abs Basophils (Manual) Nucleated RBCs Toxic Granulation Platelet Comment Polychromasia Hypochromasia Poikilocytosis Anisocytosis Microcytosis Target Cells Tear Drop Cells Ovalocytes Firestone Cells Schistocytes ESR PT INR Carbonic Acid HCO3/H2CO3 Ratio ABG pH ABG pCO2 ABG pO2 ABG HCO3 ABG Total CO2 ABG O2 Saturation ABG Base Excess VBG pH VBG pCO2 VBG HCO3 VBG Base Excess FiO2 Sodium Potassium Chloride Carbon Dioxide Anion Gap BUN Creatinine Est GFR ( Amer) Est GFR (MDRD) Non-Af Glucose POC Glucose Hemoglobin A1c % 6.0 Lactic Acid 2.3 H Calcium Phosphorus Magnesium Total Bilirubin Direct Bilirubin Neonat Total Bilirubin Neonat Direct Bilirubin Neonat Indirect Bili AST ALT Alkaline Phosphatase Creatine Kinase CK-MB (CK-2) Troponin I C-Reactive Protein NT-Pro-B Natriuret Pep Total Protein Albumin Triglycerides Cholesterol LDL Cholesterol Direct VLDL Cholesterol HDL Cholesterol TSH 2.81 Urine Color Urine Appearance Urine pH Ur Specific [place] Urine Protein Urine Glucose (UA) Urine Ketones Urine Blood Urine Nitrite Urine Bilirubin Urine Urobilinogen Ur Leukocyte Esterase Urine WBC (Auto) Urine RBC (Auto) U Hyaline Cast (Auto) Urine Bacteria (Auto) Urine Red Cell Clumps Urine WBC Clumps Squamous Epi Cells Auto U Non-Squamous Epis Auto Calcium Carbonate Cryst Calcium Phosphate Cryst Calcium Oxalate Cr Auto Leucine Crystals Cystine Crystals Uric Acid Cryst (Auto) Triple Phos Cryst (Auto) Tyrosine Crystals Amorphous Sediment Auto Cellular Casts Epithelial Casts (Auto) Fatty Casts Granular Casts (Auto) Waxy Casts (Auto) Broad Casts RBC Casts (Auto) WBC Casts (Auto) Urine Mucus (Auto) U Trichomonas (Auto) Ur Yeast w Hyphae Urine Yeast (Budding) Urine Ascorbic Acid Hep Bs Antigen Hep Bs Antibody, Quant Hep B Core Total Ab HCV Quantitation HCV RNA PCR Test Info 05/13/19 05/14/19 05/14/19 09:35 04:26 04:26 WBC RBC Hgb Hct MCV MCH MCHC RDW Plt Count Lymph % (Auto) Mclennan % (Auto) Eos % (Auto) Baso % (Auto) Absolute Neuts (auto) Absolute Lymphs (auto) Absolute Monos (auto) Absolute Eos (auto) Absolute Basos (auto) Total Counted Seg Neutrophils % Seg Neuts % (Manual) Band Neutrophils % Lymphocytes % (Manual) Monocytes % (Manual) Eosinophils % (Manual) Basophils % (Manual) Abs Neuts (Manual) Abs Lymphs (Manual) Abs Monocytes (Manual) Absolute Eos (Manual) Abs Basophils (Manual) Nucleated RBCs Toxic Granulation Platelet Comment Polychromasia Hypochromasia Poikilocytosis Anisocytosis Microcytosis Target Cells Tear Drop Cells Ovalocytes Dell Cells Schistocytes ESR PT INR Carbonic Acid HCO3/H2CO3 Ratio ABG pH ABG pCO2 ABG pO2 ABG HCO3 ABG Total CO2 ABG O2 Saturation ABG Base Excess VBG pH VBG pCO2 VBG HCO3 VBG Base Excess FiO2 Sodium 136.2 L Potassium 4.8 D Chloride 102 Carbon Dioxide 22 Anion Gap 12 BUN 43 H Creatinine 2.36 H Est GFR ( Amer) 34 L Est GFR (MDRD) Non-Af 28 L Glucose 128 H POC Glucose Hemoglobin A1c % Lactic Acid Calcium 8.7 Phosphorus Magnesium Total Bilirubin Direct Bilirubin Neonat Total Bilirubin Neonat Direct Bilirubin Neonat Indirect Bili AST ALT Alkaline Phosphatase Creatine Kinase CK-MB (CK-2) 4.88 H Troponin I 0.047 C-Reactive Protein NT-Pro-B Natriuret Pep 33349 H Total Protein Albumin Triglycerides Cholesterol LDL Cholesterol Direct VLDL Cholesterol HDL Cholesterol TSH Urine Color Urine Appearance Urine pH Ur Specific [place] Urine Protein Urine Glucose (UA) Urine Ketones Urine Blood Urine Nitrite Urine Bilirubin Urine Urobilinogen Ur Leukocyte Esterase Urine WBC (Auto) Urine RBC (Auto) U Hyaline Cast (Auto) Urine Bacteria (Auto) Urine Red Cell Clumps Urine WBC Clumps Squamous Epi Cells Auto U Non-Squamous Epis Auto Calcium Carbonate Cryst Calcium Phosphate Cryst Calcium Oxalate Cr Auto Leucine Crystals Cystine Crystals Uric Acid Cryst (Auto) Triple Phos Cryst (Auto) Tyrosine Crystals Amorphous Sediment Auto Cellular Casts Epithelial Casts (Auto) Fatty Casts Granular Casts (Auto) Waxy Casts (Auto) Broad Casts RBC Casts (Auto) WBC Casts (Auto) Urine Mucus (Auto) U Trichomonas (Auto) Ur Yeast w Hyphae Urine Yeast (Budding) Urine Ascorbic Acid Hep Bs Antigen Hep Bs Antibody, Quant Hep B Core Total Ab HCV Quantitation HCV RNA PCR Test Info 05/14/19 05/15/19 05/15/19 04:26 05:23 05:23 WBC 16.0 H D 11.3 H RBC 4.65 4.76 Hgb 11.6 L 12.3 L Hct 36.6 L 37.6 L MCV 79 L 79 L MCH 25.1 L 25.8 L MCHC 31.8 L 32.6 RDW 22.6 H 23.2 H Plt Count 238 228 Lymph % (Auto) Not Reportable Mclennan % (Auto) Not Reportable Eos % (Auto) Not Reportable Baso % (Auto) Not Reportable Absolute Neuts (auto) Not Reportable Absolute Lymphs (auto) Not Reportable Absolute Monos (auto) Not Reportable Absolute Eos (auto) Not Reportable Absolute Basos (auto) Not Reportable Total Counted 100 Seg Neutrophils % Not Reportable Seg Neuts % (Manual) 94 H Band Neutrophils % Lymphocytes % (Manual) 4 L Monocytes % (Manual) 2 L Eosinophils % (Manual) 0 Basophils % (Manual) 0 Abs Neuts (Manual) 15.0 H Abs Lymphs (Manual) 0.6 Abs Monocytes (Manual) 0.3 Absolute Eos (Manual) 0.0 Abs Basophils (Manual) 0.0 Nucleated RBCs Toxic Granulation SLIGHT Platelet Comment ADEQUATE Polychromasia SLIGHT Hypochromasia Poikilocytosis SLIGHT Anisocytosis 3+ Microcytosis SLIGHT Target Cells Tear Drop Cells SLIGHT Ovalocytes SLIGHT Dell Cells SLIGHT Schistocytes SLIGHT ESR PT INR Carbonic Acid HCO3/H2CO3 Ratio ABG pH ABG pCO2 ABG pO2 ABG HCO3 ABG Total CO2 ABG O2 Saturation ABG Base Excess VBG pH VBG pCO2 VBG HCO3 VBG Base Excess FiO2 Sodium 136.2 L Potassium 5.1 H Chloride 102 Carbon Dioxide 22 Anion Gap 12 BUN 56 H Creatinine 2.56 H Est GFR ( Amer) 31 L Est GFR (MDRD) Non-Af 26 L Glucose 125 H POC Glucose Hemoglobin A1c % Lactic Acid Calcium 8.9 Phosphorus Magnesium 2.6 H Total Bilirubin 1.1 Direct Bilirubin 0.9 H Neonat Total Bilirubin Not Reportable Neonat Direct Bilirubin Not Reportable Neonat Indirect Bili Not Reportable AST 20 ALT 8 Alkaline Phosphatase 151 H Creatine Kinase CK-MB (CK-2) Troponin I C-Reactive Protein NT-Pro-B Natriuret Pep Total Protein 7.0 Albumin 3.7 Triglycerides Cholesterol LDL Cholesterol Direct VLDL Cholesterol HDL Cholesterol TSH Urine Color Urine Appearance Urine pH Ur Specific [place] Urine Protein Urine Glucose (UA) Urine Ketones Urine Blood Urine Nitrite Urine Bilirubin Urine Urobilinogen Ur Leukocyte Esterase Urine WBC (Auto) Urine RBC (Auto) U Hyaline Cast (Auto) Urine Bacteria (Auto) Urine Red Cell Clumps Urine WBC Clumps Squamous Epi Cells Auto U Non-Squamous Epis Auto Calcium Carbonate Cryst Calcium Phosphate Cryst Calcium Oxalate Cr Auto Leucine Crystals Cystine Crystals Uric Acid Cryst (Auto) Triple Phos Cryst (Auto) Tyrosine Crystals Amorphous Sediment Auto Cellular Casts Epithelial Casts (Auto) Fatty Casts Granular Casts (Auto) Waxy Casts (Auto) Broad Casts RBC Casts (Auto) WBC Casts (Auto) Urine Mucus (Auto) U Trichomonas (Auto) Ur Yeast w Hyphae Urine Yeast (Budding) Urine Ascorbic Acid Hep Bs Antigen Hep Bs Antibody, Quant Hep B Core Total Ab HCV Quantitation HCV RNA PCR Test Info 05/16/19 05/16/19 05/16/19 10:47 10:47 10:47 WBC 12.4 H RBC 4.58 Hgb 11.5 L Hct 35.9 L MCV 78 L MCH 25.1 L MCHC 32.0 RDW 23.1 H Plt Count 235 Lymph % (Auto) Not Reportable Mclennan % (Auto) Not Reportable Eos % (Auto) Not Reportable Baso % (Auto) Not Reportable Absolute Neuts (auto) Not Reportable Absolute Lymphs (auto) Not Reportable Absolute Monos (auto) Not Reportable Absolute Eos (auto) Not Reportable Absolute Basos (auto) Not Reportable Total Counted 100 Seg Neutrophils % Not Reportable Seg Neuts % (Manual) 94 H Band Neutrophils % Lymphocytes % (Manual) 3 L Monocytes % (Manual) 3 Eosinophils % (Manual) 0 Basophils % (Manual) 0 Abs Neuts (Manual) 11.7 H Abs Lymphs (Manual) 0.4 L Abs Monocytes (Manual) 0.4 Absolute Eos (Manual) 0.0 Abs Basophils (Manual) 0.0 Nucleated RBCs 1 Toxic Granulation Platelet Comment ADEQUATE Polychromasia SLIGHT Hypochromasia Poikilocytosis 1+ Anisocytosis 3+ Microcytosis SLIGHT Target Cells 1+ Tear Drop Cells Ovalocytes SLIGHT Dell Cells Schistocytes ESR 10 PT INR Carbonic Acid HCO3/H2CO3 Ratio ABG pH ABG pCO2 ABG pO2 ABG HCO3 ABG Total CO2 ABG O2 Saturation ABG Base Excess VBG pH VBG pCO2 VBG HCO3 VBG Base Excess FiO2 Sodium 134.5 L Potassium 4.5 Chloride 100 Carbon Dioxide 24 Anion Gap 11 BUN 69 H Creatinine 2.75 H Est GFR ( Amer) 29 L Est GFR (MDRD) Non-Af 24 L Glucose 132 H POC Glucose Hemoglobin A1c % Lactic Acid Calcium 8.4 Phosphorus Magnesium Total Bilirubin Direct Bilirubin Neonat Total Bilirubin Neonat Direct Bilirubin Neonat Indirect Bili AST ALT Alkaline Phosphatase Creatine Kinase CK-MB (CK-2) Troponin I C-Reactive Protein NT-Pro-B Natriuret Pep Total Protein Albumin Triglycerides Cholesterol LDL Cholesterol Direct VLDL Cholesterol HDL Cholesterol TSH Urine Color Urine Appearance Urine pH Ur Specific [place] Urine Protein Urine Glucose (UA) Urine Ketones Urine Blood Urine Nitrite Urine Bilirubin Urine Urobilinogen Ur Leukocyte Esterase Urine WBC (Auto) Urine RBC (Auto) U Hyaline Cast (Auto) Urine Bacteria (Auto) Urine Red Cell Clumps Urine WBC Clumps Squamous Epi Cells Auto U Non-Squamous Epis Auto Calcium Carbonate Cryst Calcium Phosphate Cryst Calcium Oxalate Cr Auto Leucine Crystals Cystine Crystals Uric Acid Cryst (Auto) Triple Phos Cryst (Auto) Tyrosine Crystals Amorphous Sediment Auto Cellular Casts Epithelial Casts (Auto) Fatty Casts Granular Casts (Auto) Waxy Casts (Auto) Broad Casts RBC Casts (Auto) WBC Casts (Auto) Urine Mucus (Auto) U Trichomonas (Auto) Ur Yeast w Hyphae Urine Yeast (Budding) Urine Ascorbic Acid Hep Bs Antigen Hep Bs Antibody, Quant Hep B Core Total Ab HCV Quantitation HCV RNA PCR Test Info 05/16/19 05/16/19 05/16/19 10:47 10:47 21:12 WBC RBC Hgb Hct MCV MCH MCHC RDW Plt Count Lymph % (Auto) Mclennan % (Auto) Eos % (Auto) Baso % (Auto) Absolute Neuts (auto) Absolute Lymphs (auto) Absolute Monos (auto) Absolute Eos (auto) Absolute Basos (auto) Total Counted Seg Neutrophils % Seg Neuts % (Manual) Band Neutrophils % Lymphocytes % (Manual) Monocytes % (Manual) Eosinophils % (Manual) Basophils % (Manual) Abs Neuts (Manual) Abs Lymphs (Manual) Abs Monocytes (Manual) Absolute Eos (Manual) Abs Basophils (Manual) Nucleated RBCs Toxic Granulation Platelet Comment Polychromasia Hypochromasia Poikilocytosis Anisocytosis Microcytosis Target Cells Tear Drop Cells Ovalocytes Dell Cells Schistocytes ESR PT INR Carbonic Acid HCO3/H2CO3 Ratio ABG pH ABG pCO2 ABG pO2 ABG HCO3 ABG Total CO2 ABG O2 Saturation ABG Base Excess VBG pH VBG pCO2 VBG HCO3 VBG Base Excess FiO2 Sodium Potassium Chloride Carbon Dioxide Anion Gap BUN Creatinine Est GFR ( Amer) Est GFR (MDRD) Non-Af Glucose POC Glucose 140 H Hemoglobin A1c % Lactic Acid Calcium Phosphorus Magnesium Total Bilirubin 1.4 H Direct Bilirubin 1.1 H Neonat Total Bilirubin Not Reportable Neonat Direct Bilirubin Not Reportable Neonat Indirect Bili Not Reportable AST 23 ALT 10 Alkaline Phosphatase 129 H Creatine Kinase CK-MB (CK-2) Troponin I C-Reactive Protein 13.7 H NT-Pro-B Natriuret Pep Total Protein 6.1 L Albumin 3.4 L Triglycerides Cholesterol LDL Cholesterol Direct VLDL Cholesterol HDL Cholesterol TSH Urine Color Urine Appearance Urine pH Ur Specific [place] Urine Protein Urine Glucose (UA) Urine Ketones Urine Blood Urine Nitrite Urine Bilirubin Urine Urobilinogen Ur Leukocyte Esterase Urine WBC (Auto) Urine RBC (Auto) U Hyaline Cast (Auto) Urine Bacteria (Auto) Urine Red Cell Clumps Urine WBC Clumps Squamous Epi Cells Auto U Non-Squamous Epis Auto Calcium Carbonate Cryst Calcium Phosphate Cryst Calcium Oxalate Cr Auto Leucine Crystals Cystine Crystals Uric Acid Cryst (Auto) Triple Phos Cryst (Auto) Tyrosine Crystals Amorphous Sediment Auto Cellular Casts Epithelial Casts (Auto) Fatty Casts Granular Casts (Auto) Waxy Casts (Auto) Broad Casts RBC Casts (Auto) WBC Casts (Auto) Urine Mucus (Auto) U Trichomonas (Auto) Ur Yeast w Hyphae Urine Yeast (Budding) Urine Ascorbic Acid Hep Bs Antigen Hep Bs Antibody, Quant Hep B Core Total Ab HCV Quantitation HCV RNA PCR Test Info 05/17/19 05/17/19 05/17/19 05:33 05:33 11:40 WBC 11.4 H RBC 4.53 Hgb 11.4 L Hct 35.5 L MCV 78 L MCH 25.3 L MCHC 32.3 RDW 22.2 H Plt Count 197 Lymph % (Auto) Mclennan % (Auto) Eos % (Auto) Baso % (Auto) Absolute Neuts (auto) Absolute Lymphs (auto) Absolute Monos (auto) Absolute Eos (auto) Absolute Basos (auto) Total Counted Seg Neutrophils % Seg Neuts % (Manual) Band Neutrophils % Lymphocytes % (Manual) Monocytes % (Manual) Eosinophils % (Manual) Basophils % (Manual) Abs Neuts (Manual) Abs Lymphs (Manual) Abs Monocytes (Manual) Absolute Eos (Manual) Abs Basophils (Manual) Nucleated RBCs Toxic Granulation Platelet Comment Polychromasia Hypochromasia Poikilocytosis Anisocytosis Microcytosis Target Cells Tear Drop Cells Ovalocytes Firestone Cells Schistocytes ESR PT INR Carbonic Acid 1.16 HCO3/H2CO3 Ratio 19:1 ABG pH 7.39 ABG pCO2 38.5 ABG pO2 60.3 L ABG HCO3 22.7 ABG Total CO2 23.9 ABG O2 Saturation 91.0 L ABG Base Excess -2.0 VBG pH VBG pCO2 VBG HCO3 VBG Base Excess FiO2 5.5L Sodium 137.0 Potassium 4.6 Chloride 100 Carbon Dioxide 24 Anion Gap 13 BUN 79 H Creatinine 3.05 H Est GFR ( Amer) 25 L Est GFR (MDRD) Non-Af 21 L Glucose 128 H POC Glucose Hemoglobin A1c % Lactic Acid Calcium 8.7 Phosphorus Magnesium 2.8 H Total Bilirubin 1.5 H Direct Bilirubin 1.1 H Neonat Total Bilirubin Not Reportable Neonat Direct Bilirubin Not Reportable Neonat Indirect Bili Not Reportable AST 23 ALT 10 Alkaline Phosphatase 118 Creatine Kinase CK-MB (CK-2) Troponin I C-Reactive Protein NT-Pro-B Natriuret Pep Total Protein 6.4 Albumin 3.5 Triglycerides Cholesterol LDL Cholesterol Direct VLDL Cholesterol HDL Cholesterol TSH Urine Color Urine Appearance Urine pH Ur Specific [place] Urine Protein Urine Glucose (UA) Urine Ketones Urine Blood Urine Nitrite Urine Bilirubin Urine Urobilinogen Ur Leukocyte Esterase Urine WBC (Auto) Urine RBC (Auto) U Hyaline Cast (Auto) Urine Bacteria (Auto) Urine Red Cell Clumps Urine WBC Clumps Squamous Epi Cells Auto U Non-Squamous Epis Auto Calcium Carbonate Cryst Calcium Phosphate Cryst Calcium Oxalate Cr Auto Leucine Crystals Cystine Crystals Uric Acid Cryst (Auto) Triple Phos Cryst (Auto) Tyrosine Crystals Amorphous Sediment Auto Cellular Casts Epithelial Casts (Auto) Fatty Casts Granular Casts (Auto) Waxy Casts (Auto) Broad Casts RBC Casts (Auto) WBC Casts (Auto) Urine Mucus (Auto) U Trichomonas (Auto) Ur Yeast w Hyphae Urine Yeast (Budding) Urine Ascorbic Acid Hep Bs Antigen Hep Bs Antibody, Quant Hep B Core Total Ab HCV Quantitation HCV RNA PCR Test Info 05/18/19 05/18/19 05/19/19 06:32 06:32 05:00 WBC 12.1 H 12.0 H RBC 4.51 4.60 Hgb 11.2 L 11.9 L Hct 35.6 L 35.9 L MCV 79 L 78 L MCH 24.9 L 25.8 L MCHC 31.5 L 33.0 RDW 22.9 H 22.5 H Plt Count 208 187 Lymph % (Auto) Mclennan % (Auto) Eos % (Auto) Baso % (Auto) Absolute Neuts (auto) Absolute Lymphs (auto) Absolute Monos (auto) Absolute Eos (auto) Absolute Basos (auto) Total Counted Seg Neutrophils % Seg Neuts % (Manual) Band Neutrophils % Lymphocytes % (Manual) Monocytes % (Manual) Eosinophils % (Manual) Basophils % (Manual) Abs Neuts (Manual) Abs Lymphs (Manual) Abs Monocytes (Manual) Absolute Eos (Manual) Abs Basophils (Manual) Nucleated RBCs Toxic Granulation Platelet Comment Polychromasia Hypochromasia Poikilocytosis Anisocytosis Microcytosis Target Cells Tear Drop Cells Ovalocytes Dell Cells Schistocytes ESR PT INR Carbonic Acid HCO3/H2CO3 Ratio ABG pH ABG pCO2 ABG pO2 ABG HCO3 ABG Total CO2 ABG O2 Saturation ABG Base Excess VBG pH VBG pCO2 VBG HCO3 VBG Base Excess FiO2 Sodium 134.9 L Potassium 4.7 Chloride 100 Carbon Dioxide 22 Anion Gap 13 BUN 92 H Creatinine 3.16 H Est GFR ( Amer) 24 L Est GFR (MDRD) Non-Af 20 L Glucose 131 H POC Glucose Hemoglobin A1c % Lactic Acid Calcium 8.5 Phosphorus Magnesium 3.0 H Total Bilirubin 1.8 H Direct Bilirubin 1.0 H Neonat Total Bilirubin Not Reportable Neonat Direct Bilirubin Not Reportable Neonat Indirect Bili Not Reportable AST 27 ALT 10 Alkaline Phosphatase 106 Creatine Kinase CK-MB (CK-2) Troponin I C-Reactive Protein NT-Pro-B Natriuret Pep Total Protein 6.0 L Albumin 3.5 Triglycerides Cholesterol LDL Cholesterol Direct VLDL Cholesterol HDL Cholesterol TSH Urine Color Urine Appearance Urine pH Ur Specific [place] Urine Protein Urine Glucose (UA) Urine Ketones Urine Blood Urine Nitrite Urine Bilirubin Urine Urobilinogen Ur Leukocyte Esterase Urine WBC (Auto) Urine RBC (Auto) U Hyaline Cast (Auto) Urine Bacteria (Auto) Urine Red Cell Clumps Urine WBC Clumps Squamous Epi Cells Auto U Non-Squamous Epis Auto Calcium Carbonate Cryst Calcium Phosphate Cryst Calcium Oxalate Cr Auto Leucine Crystals Cystine Crystals Uric Acid Cryst (Auto) Triple Phos Cryst (Auto) Tyrosine Crystals Amorphous Sediment Auto Cellular Casts Epithelial Casts (Auto) Fatty Casts Granular Casts (Auto) Waxy Casts (Auto) Broad Casts RBC Casts (Auto) WBC Casts (Auto) Urine Mucus (Auto) U Trichomonas (Auto) Ur Yeast w Hyphae Urine Yeast (Budding) Urine Ascorbic Acid Hep Bs Antigen Hep Bs Antibody, Quant Hep B Core Total Ab HCV Quantitation HCV RNA PCR Test Info 05/19/19 05/19/19 05/19/19 05:00 17:45 17:45 WBC RBC Hgb Hct MCV MCH MCHC RDW Plt Count Lymph % (Auto) Mclennan % (Auto) Eos % (Auto) Baso % (Auto) Absolute Neuts (auto) Absolute Lymphs (auto) Absolute Monos (auto) Absolute Eos (auto) Absolute Basos (auto) Total Counted Seg Neutrophils % Seg Neuts % (Manual) Band Neutrophils % Lymphocytes % (Manual) Monocytes % (Manual) Eosinophils % (Manual) Basophils % (Manual) Abs Neuts (Manual) Abs Lymphs (Manual) Abs Monocytes (Manual) Absolute Eos (Manual) Abs Basophils (Manual) Nucleated RBCs Toxic Granulation Platelet Comment Polychromasia Hypochromasia Poikilocytosis Anisocytosis Microcytosis Target Cells Tear Drop Cells Ovalocytes Dell Cells Schistocytes ESR PT INR Carbonic Acid HCO3/H2CO3 Ratio ABG pH ABG pCO2 ABG pO2 ABG HCO3 ABG Total CO2 ABG O2 Saturation ABG Base Excess VBG pH VBG pCO2 VBG HCO3 VBG Base Excess FiO2 Sodium 138.1 Potassium 4.9 Chloride 100 Carbon Dioxide 26 Anion Gap 12 BUN 101 H Creatinine 3.38 H Est GFR ( Amer) 23 L Est GFR (MDRD) Non-Af 19 L Glucose 115 H POC Glucose Hemoglobin A1c % Lactic Acid Calcium 9.0 Phosphorus Magnesium 3.4 H Total Bilirubin 1.7 H Direct Bilirubin 1.1 H Neonat Total Bilirubin Not Reportable Neonat Direct Bilirubin Not Reportable Neonat Indirect Bili Not Reportable AST 26 ALT 12 Alkaline Phosphatase 108 Creatine Kinase 230 H CK-MB (CK-2) Troponin I C-Reactive Protein NT-Pro-B Natriuret Pep Total Protein 6.5 Albumin 3.8 Triglycerides Cholesterol LDL Cholesterol Direct VLDL Cholesterol HDL Cholesterol TSH Urine Color Cancelled Urine Appearance Cancelled Urine pH Cancelled Ur Specific [place] Cancelled Urine Protein Cancelled Urine Glucose (UA) Cancelled Urine Ketones Cancelled Urine Blood Cancelled Urine Nitrite Cancelled Urine Bilirubin Cancelled Urine Urobilinogen Cancelled Ur Leukocyte Esterase Cancelled Urine WBC (Auto) Cancelled Urine RBC (Auto) Cancelled U Hyaline Cast (Auto) Cancelled Urine Bacteria (Auto) Cancelled Urine Red Cell Clumps Cancelled Urine WBC Clumps Cancelled Squamous Epi Cells Auto Cancelled U Non-Squamous Epis Auto Cancelled Calcium Carbonate Cryst Cancelled Calcium Phosphate Cryst Cancelled Calcium Oxalate Cr Auto Cancelled Leucine Crystals Cancelled Cystine Crystals Cancelled Uric Acid Cryst (Auto) Cancelled Triple Phos Cryst (Auto) Cancelled Tyrosine Crystals Cancelled Amorphous Sediment Auto Cancelled Cellular Casts Cancelled Epithelial Casts (Auto) Cancelled Fatty Casts Cancelled Granular Casts (Auto) Cancelled Waxy Casts (Auto) Cancelled Broad Casts Cancelled RBC Casts (Auto) Cancelled WBC Casts (Auto) Cancelled Urine Mucus (Auto) Cancelled U Trichomonas (Auto) Cancelled Ur Yeast w Hyphae Cancelled Urine Yeast (Budding) Cancelled Urine Ascorbic Acid Cancelled Hep Bs Antigen Hep Bs Antibody, Quant Hep B Core Total Ab HCV Quantitation HCV RNA PCR Test Info 05/20/19 05/20/19 05/20/19 04:27 04:27 09:55 WBC 9.3 RBC 4.27 L Hgb 10.9 L Hct 33.1 L MCV 78 L MCH 25.5 L MCHC 32.8 RDW 22.6 H Plt Count 161 Lymph % (Auto) Mclennan % (Auto) Eos % (Auto) Baso % (Auto) Absolute Neuts (auto) Absolute Lymphs (auto) Absolute Monos (auto) Absolute Eos (auto) Absolute Basos (auto) Total Counted Seg Neutrophils % Seg Neuts % (Manual) Band Neutrophils % Lymphocytes % (Manual) Monocytes % (Manual) Eosinophils % (Manual) Basophils % (Manual) Abs Neuts (Manual) Abs Lymphs (Manual) Abs Monocytes (Manual) Absolute Eos (Manual) Abs Basophils (Manual) Nucleated RBCs Toxic Granulation Platelet Comment Polychromasia Hypochromasia Poikilocytosis Anisocytosis Microcytosis Target Cells Tear Drop Cells Ovalocytes Dell Cells Schistocytes ESR PT INR Carbonic Acid HCO3/H2CO3 Ratio ABG pH ABG pCO2 ABG pO2 ABG HCO3 ABG Total CO2 ABG O2 Saturation ABG Base Excess VBG pH VBG pCO2 VBG HCO3 VBG Base Excess FiO2 Sodium 137.5 Potassium 4.7 Chloride 104 Carbon Dioxide 22 Anion Gap 12 BUN 122 H D Creatinine 3.71 H Est GFR ( Amer) 20 L Est GFR (MDRD) Non-Af 17 L Glucose 93 POC Glucose Hemoglobin A1c % Lactic Acid Calcium 8.4 Phosphorus Magnesium 3.3 H Total Bilirubin 1.4 H Direct Bilirubin 0.9 H Neonat Total Bilirubin Not Reportable Neonat Direct Bilirubin Not Reportable Neonat Indirect Bili Not Reportable AST 25 ALT 11 Alkaline Phosphatase 91 Creatine Kinase CK-MB (CK-2) Troponin I C-Reactive Protein NT-Pro-B Natriuret Pep Total Protein 5.8 L Albumin 3.2 L Triglycerides Cholesterol LDL Cholesterol Direct VLDL Cholesterol HDL Cholesterol TSH Urine Color BROWN Urine Appearance SLIGHTLY-CLOUDY Urine pH 5.0 Ur Specific [place] 1.016 Urine Protein 100 H Urine Glucose (UA) NEGATIVE Urine Ketones NEGATIVE Urine Blood LARGE H Urine Nitrite NEGATIVE Urine Bilirubin NEGATIVE Urine Urobilinogen NEGATIVE Ur Leukocyte Esterase NEGATIVE Urine WBC (Auto) >182 Urine RBC (Auto) >182 U Hyaline Cast (Auto) Urine Bacteria (Auto) 3+ Urine Red Cell Clumps Urine WBC Clumps MANY Squamous Epi Cells Auto U Non-Squamous Epis Auto 3 Calcium Carbonate Cryst Calcium Phosphate Cryst Calcium Oxalate Cr Auto Leucine Crystals Cystine Crystals Uric Acid Cryst (Auto) Triple Phos Cryst (Auto) Tyrosine Crystals Amorphous Sediment Auto Cellular Casts Epithelial Casts (Auto) Fatty Casts Granular Casts (Auto) Waxy Casts (Auto) Broad Casts RBC Casts (Auto) WBC Casts (Auto) Urine Mucus (Auto) OCC U Trichomonas (Auto) Ur Yeast w Hyphae Urine Yeast (Budding) Urine Ascorbic Acid NEGATIVE Hep Bs Antigen Hep Bs Antibody, Quant Hep B Core Total Ab HCV Quantitation HCV RNA PCR Test Info 05/20/19 05/20/19 05/21/19 10:40 18:30 04:23 WBC 10.1 RBC 4.23 L Hgb 10.7 L Hct 33.5 L MCV 79 L MCH 25.3 L MCHC 32.0 RDW 22.8 H Plt Count 145 L Lymph % (Auto) Not Reportable Mclennan % (Auto) Not Reportable Eos % (Auto) Not Reportable Baso % (Auto) Not Reportable Absolute Neuts (auto) Not Reportable Absolute Lymphs (auto) Not Reportable Absolute Monos (auto) Not Reportable Absolute Eos (auto) Not Reportable Absolute Basos (auto) Not Reportable Total Counted 100 Seg Neutrophils % Not Reportable Seg Neuts % (Manual) 91 H Band Neutrophils % Lymphocytes % (Manual) 5 L Monocytes % (Manual) 3 Eosinophils % (Manual) 1 Basophils % (Manual) 0 Abs Neuts (Manual) 9.2 H Abs Lymphs (Manual) 0.5 Abs Monocytes (Manual) 0.3 Absolute Eos (Manual) 0.1 Abs Basophils (Manual) 0.0 Nucleated RBCs Toxic Granulation Platelet Comment DECREASED Polychromasia Hypochromasia Poikilocytosis Anisocytosis 3+ Microcytosis SLIGHT Target Cells Tear Drop Cells Ovalocytes Dell Cells Schistocytes ESR PT INR Carbonic Acid 1.19 HCO3/H2CO3 Ratio 16:1 ABG pH 7.32 L ABG pCO2 39.7 ABG pO2 59.0 L ABG HCO3 20.0 ABG Total CO2 21.3 L ABG O2 Saturation 88.7 L ABG Base Excess -5.6 VBG pH VBG pCO2 VBG HCO3 VBG Base Excess FiO2 6L Sodium Potassium Chloride Carbon Dioxide Anion Gap BUN Creatinine Est GFR ( Amer) Est GFR (MDRD) Non-Af Glucose POC Glucose 97 Hemoglobin A1c % Lactic Acid Calcium Phosphorus Magnesium Total Bilirubin Direct Bilirubin Neonat Total Bilirubin Neonat Direct Bilirubin Neonat Indirect Bili AST ALT Alkaline Phosphatase Creatine Kinase CK-MB (CK-2) Troponin I C-Reactive Protein NT-Pro-B Natriuret Pep Total Protein Albumin Triglycerides Cholesterol LDL Cholesterol Direct VLDL Cholesterol HDL Cholesterol TSH Urine Color Urine Appearance Urine pH Ur Specific [place] Urine Protein Urine Glucose (UA) Urine Ketones Urine Blood Urine Nitrite Urine Bilirubin Urine Urobilinogen Ur Leukocyte Esterase Urine WBC (Auto) Urine RBC (Auto) U Hyaline Cast (Auto) Urine Bacteria (Auto) Urine Red Cell Clumps Urine WBC Clumps Squamous Epi Cells Auto U Non-Squamous Epis Auto Calcium Carbonate Cryst Calcium Phosphate Cryst Calcium Oxalate Cr Auto Leucine Crystals Cystine Crystals Uric Acid Cryst (Auto) Triple Phos Cryst (Auto) Tyrosine Crystals Amorphous Sediment Auto Cellular Casts Epithelial Casts (Auto) Fatty Casts Granular Casts (Auto) Waxy Casts (Auto) Broad Casts RBC Casts (Auto) WBC Casts (Auto) Urine Mucus (Auto) U Trichomonas (Auto) Ur Yeast w Hyphae Urine Yeast (Budding) Urine Ascorbic Acid Hep Bs Antigen Hep Bs Antibody, Quant Hep B Core Total Ab HCV Quantitation HCV RNA PCR Test Info 05/21/19 05/21/19 05/21/19 04:23 04:23 04:23 WBC RBC Hgb Hct MCV MCH MCHC RDW Plt Count Lymph % (Auto) Mclennan % (Auto) Eos % (Auto) Baso % (Auto) Absolute Neuts (auto) Absolute Lymphs (auto) Absolute Monos (auto) Absolute Eos (auto) Absolute Basos (auto) Total Counted Seg Neutrophils % Seg Neuts % (Manual) Band Neutrophils % Lymphocytes % (Manual) Monocytes % (Manual) Eosinophils % (Manual) Basophils % (Manual) Abs Neuts (Manual) Abs Lymphs (Manual) Abs Monocytes (Manual) Absolute Eos (Manual) Abs Basophils (Manual) Nucleated RBCs Toxic Granulation Platelet Comment Polychromasia Hypochromasia Poikilocytosis Anisocytosis Microcytosis Target Cells Tear Drop Cells Ovalocytes Dell Cells Schistocytes ESR PT INR Carbonic Acid HCO3/H2CO3 Ratio ABG pH ABG pCO2 ABG pO2 ABG HCO3 ABG Total CO2 ABG O2 Saturation ABG Base Excess VBG pH VBG pCO2 VBG HCO3 VBG Base Excess FiO2 Sodium 140.8 Potassium 4.6 Chloride 105 Carbon Dioxide 22 Anion Gap 14 BUN 131 H Creatinine 4.07 H Est GFR ( Amer) 18 L Est GFR (MDRD) Non-Af 15 L Glucose 96 POC Glucose Hemoglobin A1c % Lactic Acid Calcium 8.6 Phosphorus 6.9 H Magnesium 3.4 H Total Bilirubin Direct Bilirubin Neonat Total Bilirubin Neonat Direct Bilirubin Neonat Indirect Bili AST ALT Alkaline Phosphatase Creatine Kinase CK-MB (CK-2) Troponin I C-Reactive Protein NT-Pro-B Natriuret Pep Total Protein Albumin Triglycerides Cholesterol LDL Cholesterol Direct VLDL Cholesterol HDL Cholesterol TSH Urine Color Urine Appearance Urine pH Ur Specific [place] Urine Protein Urine Glucose (UA) Urine Ketones Urine Blood Urine Nitrite Urine Bilirubin Urine Urobilinogen Ur Leukocyte Esterase Urine WBC (Auto) Urine RBC (Auto) U Hyaline Cast (Auto) Urine Bacteria (Auto) Urine Red Cell Clumps Urine WBC Clumps Squamous Epi Cells Auto U Non-Squamous Epis Auto Calcium Carbonate Cryst Calcium Phosphate Cryst Calcium Oxalate Cr Auto Leucine Crystals Cystine Crystals Uric Acid Cryst (Auto) Triple Phos Cryst (Auto) Tyrosine Crystals Amorphous Sediment Auto Cellular Casts Epithelial Casts (Auto) Fatty Casts Granular Casts (Auto) Waxy Casts (Auto) Broad Casts RBC Casts (Auto) WBC Casts (Auto) Urine Mucus (Auto) U Trichomonas (Auto) Ur Yeast w Hyphae Urine Yeast (Budding) Urine Ascorbic Acid Hep Bs Antigen Negative Hep Bs Antibody, Quant <3.1 L Hep B Core Total Ab Negative HCV Quantitation HCV Not Detected HCV RNA PCR Test Info Comment 05/22/19 05/22/19 05/22/19 05:35 05:35 12:18 WBC 10.4 RBC 3.85 L Hgb 9.9 L Hct 29.9 L MCV 78 L MCH 25.8 L MCHC 33.3 RDW 22.3 H Plt Count 153 Lymph % (Auto) Not Reportable Mclennan % (Auto) Not Reportable Eos % (Auto) Not Reportable Baso % (Auto) Not Reportable Absolute Neuts (auto) Not Reportable Absolute Lymphs (auto) Not Reportable Absolute Monos (auto) Not Reportable Absolute Eos (auto) Not Reportable Absolute Basos (auto) Not Reportable Total Counted 100 Seg Neutrophils % Not Reportable Seg Neuts % (Manual) 89 H Band Neutrophils % Lymphocytes % (Manual) 6 L Monocytes % (Manual) 3 Eosinophils % (Manual) 2 Basophils % (Manual) 0 Abs Neuts (Manual) 9.3 H Abs Lymphs (Manual) 0.6 Abs Monocytes (Manual) 0.3 Absolute Eos (Manual) 0.2 Abs Basophils (Manual) 0.0 Nucleated RBCs Toxic Granulation SLIGHT Platelet Comment ADEQUATE Polychromasia Hypochromasia SLIGHT Poikilocytosis 1+ Anisocytosis 3+ Microcytosis SLIGHT Target Cells Tear Drop Cells SLIGHT Ovalocytes SLIGHT Dell Cells Schistocytes ESR PT INR Carbonic Acid HCO3/H2CO3 Ratio ABG pH ABG pCO2 ABG pO2 ABG HCO3 ABG Total CO2 ABG O2 Saturation ABG Base Excess VBG pH VBG pCO2 VBG HCO3 VBG Base Excess FiO2 Sodium 140.9 Potassium 4.1 Chloride 103 Carbon Dioxide 23 Anion Gap 15 BUN 99 H Creatinine 3.63 H Est GFR ( Amer) 21 L Est GFR (MDRD) Non-Af 17 L Glucose 81 POC Glucose 96 Hemoglobin A1c % Lactic Acid Calcium 8.3 L Phosphorus 5.6 H Magnesium 3.2 H Total Bilirubin 2.1 H Direct Bilirubin 1.6 H Neonat Total Bilirubin Not Reportable Neonat Direct Bilirubin Not Reportable Neonat Indirect Bili Not Reportable AST 25 ALT 12 Alkaline Phosphatase 117 Creatine Kinase CK-MB (CK-2) Troponin I C-Reactive Protein NT-Pro-B Natriuret Pep Total Protein 6.0 L Albumin 3.0 L Triglycerides Cholesterol LDL Cholesterol Direct VLDL Cholesterol HDL Cholesterol TSH Urine Color Urine Appearance Urine pH Ur Specific [place] Urine Protein Urine Glucose (UA) Urine Ketones Urine Blood Urine Nitrite Urine Bilirubin Urine Urobilinogen Ur Leukocyte Esterase Urine WBC (Auto) Urine RBC (Auto) U Hyaline Cast (Auto) Urine Bacteria (Auto) Urine Red Cell Clumps Urine WBC Clumps Squamous Epi Cells Auto U Non-Squamous Epis Auto Calcium Carbonate Cryst Calcium Phosphate Cryst Calcium Oxalate Cr Auto Leucine Crystals Cystine Crystals Uric Acid Cryst (Auto) Triple Phos Cryst (Auto) Tyrosine Crystals Amorphous Sediment Auto Cellular Casts Epithelial Casts (Auto) Fatty Casts Granular Casts (Auto) Waxy Casts (Auto) Broad Casts RBC Casts (Auto) WBC Casts (Auto) Urine Mucus (Auto) U Trichomonas (Auto) Ur Yeast w Hyphae Urine Yeast (Budding) Urine Ascorbic Acid Hep Bs Antigen Hep Bs Antibody, Quant Hep B Core Total Ab HCV Quantitation HCV RNA PCR Test Info 05/22/19 05/23/19 05/23/19 18:04 00:32 04:41 WBC RBC Hgb Hct MCV MCH MCHC RDW Plt Count Lymph % (Auto) Mclennan % (Auto) Eos % (Auto) Baso % (Auto) Absolute Neuts (auto) Absolute Lymphs (auto) Absolute Monos (auto) Absolute Eos (auto) Absolute Basos (auto) Total Counted Seg Neutrophils % Seg Neuts % (Manual) Band Neutrophils % Lymphocytes % (Manual) Monocytes % (Manual) Eosinophils % (Manual) Basophils % (Manual) Abs Neuts (Manual) Abs Lymphs (Manual) Abs Monocytes (Manual) Absolute Eos (Manual) Abs Basophils (Manual) Nucleated RBCs Toxic Granulation Platelet Comment Polychromasia Hypochromasia Poikilocytosis Anisocytosis Microcytosis Target Cells Tear Drop Cells Ovalocytes Dell Cells Schistocytes ESR PT INR Carbonic Acid HCO3/H2CO3 Ratio ABG pH ABG pCO2 ABG pO2 ABG HCO3 ABG Total CO2 ABG O2 Saturation ABG Base Excess VBG pH VBG pCO2 VBG HCO3 VBG Base Excess FiO2 Sodium 142.5 Potassium 4.1 Chloride 102 Carbon Dioxide 22 Anion Gap 19 BUN 79 H D Creatinine 3.52 H Est GFR ( Amer) 22 L Est GFR (MDRD) Non-Af 18 L Glucose 126 H POC Glucose 108 125 H Hemoglobin A1c % Lactic Acid Calcium 8.8 Phosphorus 4.9 H Magnesium 2.9 H Total Bilirubin 2.4 H Direct Bilirubin 1.7 H Neonat Total Bilirubin Not Reportable Neonat Direct Bilirubin Not Reportable Neonat Indirect Bili Not Reportable AST 27 ALT 14 Alkaline Phosphatase 142 H Creatine Kinase CK-MB (CK-2) Troponin I C-Reactive Protein NT-Pro-B Natriuret Pep Total Protein 6.7 Albumin 3.3 L Triglycerides Cholesterol LDL Cholesterol Direct VLDL Cholesterol HDL Cholesterol TSH Urine Color Urine Appearance Urine pH Ur Specific [place] Urine Protein Urine Glucose (UA) Urine Ketones Urine Blood Urine Nitrite Urine Bilirubin Urine Urobilinogen Ur Leukocyte Esterase Urine WBC (Auto) Urine RBC (Auto) U Hyaline Cast (Auto) Urine Bacteria (Auto) Urine Red Cell Clumps Urine WBC Clumps Squamous Epi Cells Auto U Non-Squamous Epis Auto Calcium Carbonate Cryst Calcium Phosphate Cryst Calcium Oxalate Cr Auto Leucine Crystals Cystine Crystals Uric Acid Cryst (Auto) Triple Phos Cryst (Auto) Tyrosine Crystals Amorphous Sediment Auto Cellular Casts Epithelial Casts (Auto) Fatty Casts Granular Casts (Auto) Waxy Casts (Auto) Broad Casts RBC Casts (Auto) WBC Casts (Auto) Urine Mucus (Auto) U Trichomonas (Auto) Ur Yeast w Hyphae Urine Yeast (Budding) Urine Ascorbic Acid Hep Bs Antigen Hep Bs Antibody, Quant Hep B Core Total Ab HCV Quantitation HCV RNA PCR Test Info 05/23/19 05/23/19 05/23/19 04:41 04:41 05:52 WBC 12.5 H RBC 3.96 L Hgb 10.0 L Hct 30.7 L MCV 78 L MCH 25.2 L MCHC 32.4 RDW 22.6 H Plt Count 169 Lymph % (Auto) Not Reportable Mclennan % (Auto) Not Reportable Eos % (Auto) Not Reportable Baso % (Auto) Not Reportable Absolute Neuts (auto) Not Reportable Absolute Lymphs (auto) Not Reportable Absolute Monos (auto) Not Reportable Absolute Eos (auto) Not Reportable Absolute Basos (auto) Not Reportable Total Counted 100 Seg Neutrophils % Not Reportable Seg Neuts % (Manual) 93 H Band Neutrophils % 1 L Lymphocytes % (Manual) 3 L Monocytes % (Manual) 3 Eosinophils % (Manual) 0 Basophils % (Manual) 0 Abs Neuts (Manual) 11.8 H Abs Lymphs (Manual) 0.4 L Abs Monocytes (Manual) 0.4 Absolute Eos (Manual) 0.0 Abs Basophils (Manual) 0.0 Nucleated RBCs Toxic Granulation Platelet Comment ADEQUATE Polychromasia Hypochromasia SLIGHT Poikilocytosis Anisocytosis 3+ Microcytosis SLIGHT Target Cells SLIGHT Tear Drop Cells SLIGHT Ovalocytes SLIGHT Firestone Cells Schistocytes ESR PT INR Carbonic Acid HCO3/H2CO3 Ratio ABG pH ABG pCO2 ABG pO2 ABG HCO3 ABG Total CO2 ABG O2 Saturation ABG Base Excess VBG pH VBG pCO2 VBG HCO3 VBG Base Excess FiO2 Sodium Potassium Chloride Carbon Dioxide Anion Gap BUN Creatinine Est GFR ( Amer) Est GFR (MDRD) Non-Af Glucose POC Glucose 134 H Hemoglobin A1c % Lactic Acid 1.2 Calcium Phosphorus Magnesium Total Bilirubin Direct Bilirubin Neonat Total Bilirubin Neonat Direct Bilirubin Neonat Indirect Bili AST ALT Alkaline Phosphatase Creatine Kinase CK-MB (CK-2) Troponin I C-Reactive Protein NT-Pro-B Natriuret Pep Total Protein Albumin Triglycerides Cholesterol LDL Cholesterol Direct VLDL Cholesterol HDL Cholesterol TSH Urine Color Urine Appearance Urine pH Ur Specific [place] Urine Protein Urine Glucose (UA) Urine Ketones Urine Blood Urine Nitrite Urine Bilirubin Urine Urobilinogen Ur Leukocyte Esterase Urine WBC (Auto) Urine RBC (Auto) U Hyaline Cast (Auto) Urine Bacteria (Auto) Urine Red Cell Clumps Urine WBC Clumps Squamous Epi Cells Auto U Non-Squamous Epis Auto Calcium Carbonate Cryst Calcium Phosphate Cryst Calcium Oxalate Cr Auto Leucine Crystals Cystine Crystals Uric Acid Cryst (Auto) Triple Phos Cryst (Auto) Tyrosine Crystals Amorphous Sediment Auto Cellular Casts Epithelial Casts (Auto) Fatty Casts Granular Casts (Auto) Waxy Casts (Auto) Broad Casts RBC Casts (Auto) WBC Casts (Auto) Urine Mucus (Auto) U Trichomonas (Auto) Ur Yeast w Hyphae Urine Yeast (Budding) Urine Ascorbic Acid Hep Bs Antigen Hep Bs Antibody, Quant Hep B Core Total Ab HCV Quantitation HCV RNA PCR Test Info 05/23/19 05/23/19 05/23/19 12:24 16:30 17:19 WBC RBC Hgb Hct MCV MCH MCHC RDW Plt Count Lymph % (Auto) Mclennan % (Auto) Eos % (Auto) Baso % (Auto) Absolute Neuts (auto) Absolute Lymphs (auto) Absolute Monos (auto) Absolute Eos (auto) Absolute Basos (auto) Total Counted Seg Neutrophils % Seg Neuts % (Manual) Band Neutrophils % Lymphocytes % (Manual) Monocytes % (Manual) Eosinophils % (Manual) Basophils % (Manual) Abs Neuts (Manual) Abs Lymphs (Manual) Abs Monocytes (Manual) Absolute Eos (Manual) Abs Basophils (Manual) Nucleated RBCs Toxic Granulation Platelet Comment Polychromasia Hypochromasia Poikilocytosis Anisocytosis Microcytosis Target Cells Tear Drop Cells Ovalocytes Dell Cells Schistocytes ESR PT INR Carbonic Acid Cancelled HCO3/H2CO3 Ratio Cancelled ABG pH Cancelled ABG pCO2 Cancelled ABG pO2 Cancelled ABG HCO3 Cancelled ABG Total CO2 Cancelled ABG O2 Saturation Cancelled ABG Base Excess Cancelled VBG pH VBG pCO2 VBG HCO3 VBG Base Excess FiO2 Cancelled Sodium Potassium Chloride Carbon Dioxide Anion Gap BUN Creatinine Est GFR ( Amer) Est GFR (MDRD) Non-Af Glucose POC Glucose 114 H 129 H Hemoglobin A1c % Lactic Acid Calcium Phosphorus Magnesium Total Bilirubin Direct Bilirubin Neonat Total Bilirubin Neonat Direct Bilirubin Neonat Indirect Bili AST ALT Alkaline Phosphatase Creatine Kinase CK-MB (CK-2) Troponin I C-Reactive Protein NT-Pro-B Natriuret Pep Total Protein Albumin Triglycerides Cholesterol LDL Cholesterol Direct VLDL Cholesterol HDL Cholesterol TSH Urine Color Urine Appearance Urine pH Ur Specific [place] Urine Protein Urine Glucose (UA) Urine Ketones Urine Blood Urine Nitrite Urine Bilirubin Urine Urobilinogen Ur Leukocyte Esterase Urine WBC (Auto) Urine RBC (Auto) U Hyaline Cast (Auto) Urine Bacteria (Auto) Urine Red Cell Clumps Urine WBC Clumps Squamous Epi Cells Auto U Non-Squamous Epis Auto Calcium Carbonate Cryst Calcium Phosphate Cryst Calcium Oxalate Cr Auto Leucine Crystals Cystine Crystals Uric Acid Cryst (Auto) Triple Phos Cryst (Auto) Tyrosine Crystals Amorphous Sediment Auto Cellular Casts Epithelial Casts (Auto) Fatty Casts Granular Casts (Auto) Waxy Casts (Auto) Broad Casts RBC Casts (Auto) WBC Casts (Auto) Urine Mucus (Auto) U Trichomonas (Auto) Ur Yeast w Hyphae Urine Yeast (Budding) Urine Ascorbic Acid Hep Bs Antigen Hep Bs Antibody, Quant Hep B Core Total Ab HCV Quantitation HCV RNA PCR Test Info 05/24/19 05/24/19 05/24/19 00:22 01:40 06:01 WBC RBC Hgb Hct MCV MCH MCHC RDW Plt Count Lymph % (Auto) Mclennan % (Auto) Eos % (Auto) Baso % (Auto) Absolute Neuts (auto) Absolute Lymphs (auto) Absolute Monos (auto) Absolute Eos (auto) Absolute Basos (auto) Total Counted Seg Neutrophils % Seg Neuts % (Manual) Band Neutrophils % Lymphocytes % (Manual) Monocytes % (Manual) Eosinophils % (Manual) Basophils % (Manual) Abs Neuts (Manual) Abs Lymphs (Manual) Abs Monocytes (Manual) Absolute Eos (Manual) Abs Basophils (Manual) Nucleated RBCs Toxic Granulation Platelet Comment Polychromasia Hypochromasia Poikilocytosis Anisocytosis Microcytosis Target Cells Tear Drop Cells Ovalocytes Dell Cells Schistocytes ESR PT INR Carbonic Acid HCO3/H2CO3 Ratio ABG pH ABG pCO2 ABG pO2 ABG HCO3 ABG Total CO2 ABG O2 Saturation ABG Base Excess VBG pH VBG pCO2 VBG HCO3 VBG Base Excess FiO2 Sodium 140.5 Potassium 3.9 Chloride 102 Carbon Dioxide 27 Anion Gap 12 BUN 69 H Creatinine 3.41 H Est GFR ( Amer) 22 L Est GFR (MDRD) Non-Af 19 L Glucose 136 H POC Glucose 150 H 137 H Hemoglobin A1c % Lactic Acid Calcium 8.8 Phosphorus Magnesium 2.9 H Total Bilirubin 2.0 H Direct Bilirubin 1.2 H Neonat Total Bilirubin Not Reportable Neonat Direct Bilirubin Not Reportable Neonat Indirect Bili Not Reportable AST 23 ALT 13 Alkaline Phosphatase 136 H Creatine Kinase CK-MB (CK-2) Troponin I C-Reactive Protein NT-Pro-B Natriuret Pep Total Protein 6.1 L Albumin 3.0 L Triglycerides Cholesterol LDL Cholesterol Direct VLDL Cholesterol HDL Cholesterol TSH Urine Color Urine Appearance Urine pH Ur Specific [place] Urine Protein Urine Glucose (UA) Urine Ketones Urine Blood Urine Nitrite Urine Bilirubin Urine Urobilinogen Ur Leukocyte Esterase Urine WBC (Auto) Urine RBC (Auto) U Hyaline Cast (Auto) Urine Bacteria (Auto) Urine Red Cell Clumps Urine WBC Clumps Squamous Epi Cells Auto U Non-Squamous Epis Auto Calcium Carbonate Cryst Calcium Phosphate Cryst Calcium Oxalate Cr Auto Leucine Crystals Cystine Crystals Uric Acid Cryst (Auto) Triple Phos Cryst (Auto) Tyrosine Crystals Amorphous Sediment Auto Cellular Casts Epithelial Casts (Auto) Fatty Casts Granular Casts (Auto) Waxy Casts (Auto) Broad Casts RBC Casts (Auto) WBC Casts (Auto) Urine Mucus (Auto) U Trichomonas (Auto) Ur Yeast w Hyphae Urine Yeast (Budding) Urine Ascorbic Acid Hep Bs Antigen Hep Bs Antibody, Quant Hep B Core Total Ab HCV Quantitation HCV RNA PCR Test Info 05/24/19 05/24/19 06:05 06:05 WBC 10.4 RBC 3.64 L Hgb 9.4 L Hct 28.1 L MCV 77 L MCH 25.7 L MCHC 33.4 RDW 23.0 H Plt Count 170 Lymph % (Auto) Not Reportable Mclennan % (Auto) Not Reportable Eos % (Auto) Not Reportable Baso % (Auto) Not Reportable Absolute Neuts (auto) Not Reportable Absolute Lymphs (auto) Not Reportable Absolute Monos (auto) Not Reportable Absolute Eos (auto) Not Reportable Absolute Basos (auto) Not Reportable Total Counted 100 Seg Neutrophils % Not Reportable Seg Neuts % (Manual) 95 H Band Neutrophils % Lymphocytes % (Manual) 2 L Monocytes % (Manual) 2 L Eosinophils % (Manual) 1 Basophils % (Manual) 0 Abs Neuts (Manual) 9.9 H Abs Lymphs (Manual) 0.2 L Abs Monocytes (Manual) 0.2 Absolute Eos (Manual) 0.1 Abs Basophils (Manual) 0.0 Nucleated RBCs Toxic Granulation Platelet Comment ADEQUATE Polychromasia Hypochromasia SLIGHT Poikilocytosis Anisocytosis 3+ Microcytosis SLIGHT Target Cells Tear Drop Cells Ovalocytes SLIGHT Firestone Cells Schistocytes ESR PT INR Carbonic Acid HCO3/H2CO3 Ratio ABG pH ABG pCO2 ABG pO2 ABG HCO3 ABG Total CO2 ABG O2 Saturation ABG Base Excess VBG pH VBG pCO2 VBG HCO3 VBG Base Excess FiO2 Sodium 141.1 Potassium 3.8 Chloride 100 Carbon Dioxide 27 Anion Gap 14 BUN 74 H Creatinine 3.73 H Est GFR ( Amer) 20 L Est GFR (MDRD) Non-Af 17 L Glucose 137 H POC Glucose Hemoglobin A1c % Lactic Acid Calcium 8.9 Phosphorus 4.8 H Magnesium Total Bilirubin Direct Bilirubin Neonat Total Bilirubin Neonat Direct Bilirubin Neonat Indirect Bili AST ALT Alkaline Phosphatase Creatine Kinase CK-MB (CK-2) Troponin I C-Reactive Protein NT-Pro-B Natriuret Pep Total Protein Albumin Triglycerides Cholesterol LDL Cholesterol Direct VLDL Cholesterol HDL Cholesterol TSH Urine Color Urine Appearance Urine pH Ur Specific [place] Urine Protein Urine Glucose (UA) Urine Ketones Urine Blood Urine Nitrite Urine Bilirubin Urine Urobilinogen Ur Leukocyte Esterase Urine WBC (Auto) Urine RBC (Auto) U Hyaline Cast (Auto) Urine Bacteria (Auto) Urine Red Cell Clumps Urine WBC Clumps Squamous Epi Cells Auto U Non-Squamous Epis Auto Calcium Carbonate Cryst Calcium Phosphate Cryst Calcium Oxalate Cr Auto Leucine Crystals Cystine Crystals Uric Acid Cryst (Auto) Triple Phos Cryst (Auto) Tyrosine Crystals Amorphous Sediment Auto Cellular Casts Epithelial Casts (Auto) Fatty Casts Granular Casts (Auto) Waxy Casts (Auto) Broad Casts RBC Casts (Auto) WBC Casts (Auto) Urine Mucus (Auto) U Trichomonas (Auto) Ur Yeast w Hyphae Urine Yeast (Budding) Urine Ascorbic Acid Hep Bs Antigen Hep Bs Antibody, Quant Hep B Core Total Ab HCV Quantitation HCV RNA PCR Test Info Chest X-Ray 05/12/19 11:53 IMPRESSION: No acute cardiopulmonary process. Chest X-Ray 05/14/19 00:00 IMPRESSION: No acute cardiopulmonary process. Chest X-Ray 05/15/19 15:34 IMPRESSION: Right jugular central line tip SVC. No Pneumothorax Renal Artery Duplex 05/20/19 06:00 IMPRESSION: Nondiagnostic study Chest X-Ray 05/20/19 09:58 IMPRESSION: Pulmonary edema pattern KUB X-Ray 05/23/19 00:00 IMPRESSION: NO RADIOGRAPHIC EVIDENCE FOR ACUTE ABDOMINAL DISEASE. I MPRESSION/RECOMMENDATION: 1. Acute respiratory failure secondary to combination of acute on chronic systolic heart failure, acute renal failure causing volume overload, acute exacerbation of COPD, and severe pulmonary hypertension. Continue BiPAP and oxygen support. 2. Acute on chronic systolic heart failure. Patient has been placed on fluid restriction of 1500 mL each 24 hours. The patient is off inotropes and IV nitroglycerin. He is on topical nitrates and hydralazine. His Entresto has been stopped, but still the patient renal function is deteriorating.. His renal artery Dopplers for renal artery stenosis remains negative albeit poor quality study. 3. Acute exacerbation COPD: Consider antibiotics. Continue respiratory treatments. This is improved. 4. Hypertension: At present blood pressure reasonable7 5. Severe pulmonary hypertension: The dobutamine the IV nitroglycerin and hydralazine should help. Later we will see the feasibility of starting sildenafil. 6. Acute on chronic renal failure. Avoid nephrotoxic drugs. The patient has been started on dialysis, in spite of this patient's renal function is deteriorating. 7. Bipolar disorder 8. Tobacco abuse disorder. 9 coronary artery disease: History of coronary bypass graft surgery: No angina and troponin so far is not elevated. 10. Peripheral vascular disease: This will be addressed later on. 11. History of valvular repair: Details not available. Try to contact [facility] ([place]) but they say they have not heard of the patient, and have no records on him. 12. Severe hearing loss: 13. Scabies. Medications reviewed. Medical regimen and management plan discussed with attending physician. Discussed with nephrology. Medical decision making is of high complexity. 40 minutes spent as patient more than 50% time spent in direct patient care.
[2019-05-24] MEDS: HYDRALAZINE HCL 25 MG TABLET PO SCH (17:35)
[2019-05-24] MEDS ORDERED: FUROSEMIDE INJ/PF 40 MG/4 ML SDV IV ONE (18:45)
[2019-05-24] MEDS: ACETAMINOPHEN 325 MG TABLET PO PRN (21:43)
[2019-05-24] MEDS: METOPROLOL SUCCINATE 25 MG TAB.SR.24H PO SCH (21:44)
[2019-05-24] MEDS: QUETIAPINE FUMARATE 300 MG PO SCH (22:00)
[2019-05-24] MEDS ORDERED: CARVEDILOL 3.125 MG TABLET PO SCH (22:00)
[2019-05-25] MEDS: HYDRALAZINE HCL INJ/PF 20 MG/1 ML SDV IV SCH ×3 (00:09→11:09)
[2019-05-25] MEDS: HYDRALAZINE HCL 25 MG TABLET PO SCH ×4 (00:26→18:44)
[2019-05-25] MEDS: HEPARIN SOD (PORCINE) 5,000 UNIT/ML 1 ML VIAL SUBCUT SCH ×3 (05:11→21:52)
[2019-05-25] MEDS: PANTOPRAZOLE SODIUM 40 MG TABLET.DR PO SCH (05:14)
[2019-05-25] MEDS: NORMAL SALINE INJ/PF 0.9% 10 ML SDV IV PRN (05:14)
[2019-05-25 06:12] LABS: ALKALINE PHOSPHATASE 163 U/L (38-126); ANION GAP 13 (5-19); ASPARTATE AMINO TRANSFERASE 143 U/L (17-59); BILIRUBIN,DIRECT 1.3 mg/dL (0.0-0.4); BILIRUBIN,TOTAL 2.1 mg/dL (0.2-1.3); BLOOD UREA NITROGEN 91 mg/dL (7-20); CALCIUM 8.8 mg/dL (8.4-10.2); CARBON DIOXIDE 26 mmol/L (22-30); CHLORIDE 100 mmol/L (98-107); GLUCOSE 111 mg/dL (75-110); TOTAL PROTEIN 6.2 g/dL (6.3-8.2)
[2019-05-25] MEDS: IPRATROPIUM/ALBUTEROL 0.5-2.5 MG/3 ML AMPUL NEB SCH ×3 (09:19→20:27)
[2019-05-25] MEDS: QUETIAPINE FUMARATE 150 MG PO SCH (11:05)
[2019-05-25] MEDS: METOPROLOL SUCCINATE 25 MG TAB.SR.24H PO SCH ×2 (11:06→22:00)
[2019-05-25] MEDS: VITAMIN B COMPLEX TABLET PO SCH (11:06)
[2019-05-25] MEDS: FLUTICASONE/UMECLIDIN/VILANTER 100-62.5-25 MCG/DOSE IH SCH (11:06)
[2019-05-25] MEDS: ASPIRIN 81 MG TABLET, ENT COATED PO SCH (11:06)
[2019-05-25] MEDS: MULTIVITAMIN TABLET PO SCH (11:06)
[2019-05-25] MEDS: THIAMINE HCL 100 MG TABLET PO SCH (11:07)
[2019-05-25] MEDS: PAROXETINE HCL 20 MG TABLET PO SCH ×2 (11:07)
[2019-05-25] MEDS: NITROGLYCERIN 15 MG (0.6 MG/1 HR) PATCH.TD24 TD SCH (11:08)
[2019-05-25] MEDS: PERMETHRIN 5% CREAM 60 GM TP SCH (11:09)
[2019-05-25] MEDS: MINERAL OIL/PETROLATUM,WHITE CREAM 114 GM TP SCH (11:11)
[2019-05-25] MEDS ORDERED: HYDRALAZINE HCL INJ/PF 20 MG/1 ML SDV IV PRN (12:09)
--- NOTE | 2019-05-25 12:33 | PDOC PROGRESS REPORT ---
Subjective Progress Note for:: 05/25/19 Subjective:: Denies any chest pain today. States that his breathing is at baseline at time of my encounter. Received Lasix challenge yesterday with only 70 cc of urine Reason For Visit: HEART FAILURE Physical Exam Vital Signs: Temp Pulse Resp BP Pulse Ox 98.5 F 88 16 127/60 H 90 L 05/25/19 08:46 05/25/19 09:19 05/25/19 09:19 05/25/19 08:46 05/25/19 09:19 Intake & Output 05/24/19 05/25/19 05/26/19 06:59 06:59 06:59 Intake Total 225 838 Output Total 2250 70 Balance -2024 768 Weight 129.7 kg 117.6 kg General appearance: PRESENT: no acute distress, cooperative Respiratory exam: PRESENT: crackles, unlabored. ABSENT: accessory muscle use, retraction, tachypnea, wheezes Cardiovascular exam: PRESENT: RRR, +S1, +S2. ABSENT: tachycardia GI/Abdominal exam: PRESENT: normal bowel sounds, soft. ABSENT: rebound, rigid, tenderness Neurological exam: PRESENT: alert, awake, other - Able to make some conversation though sometimes hard to understand his phrases. Very hard of hearing. Results Laboratory Results: 05/24/19 06:05 05/25/19 05:20 05/25/19 05:20 Sodium 138.9 Potassium 4.0 Chloride 100 Carbon Dioxide 26 Anion Gap 13 BUN 91 H Creatinine 5.01 H Est GFR ( Amer) 14 L Glucose 111 H Calcium 8.8 Total Bilirubin 2.1 H AST 143 H Alkaline Phosphatase 163 H Total Protein 6.2 L Albumin 3.0 L 05/12/19 05/12/19 05/13/19 12:00 18:31 00:16 Creatine Kinase CK-MB (CK-2) Troponin I 0.039 0.041 0.039 NT-Pro-B Natriuret Pep 8970 H 05/13/19 05/14/19 05/19/19 09:35 04:26 17:45 Creatine Kinase 230 H CK-MB (CK-2) 4.88 H Troponin I 0.047 NT-Pro-B Natriuret Pep 88387 H Impressions: Renal Artery Duplex 05/20/19 06:00 IMPRESSION: Nondiagnostic study Chest X-Ray 05/20/19 09:58 IMPRESSION: Pulmonary edema pattern KUB X-Ray 05/23/19 00:00 IMPRESSION: NO RADIOGRAPHIC EVIDENCE FOR ACUTE ABDOMINAL DISEASE. Assessment and Plan - Diagnosis (1) Acute on chronic renal failure Qualifiers: Acute renal failure type: with acute tubular necrosis Chronic kidney disease stage: stage 3 (moderate) Qualified Code(s): N17.0 - Acute kidney failure with tubular necrosis; N18.3 - Chronic kidney disease, stage 3 (moderat e) Is this a current diagnosis for this admission?: Yes Plan: Suspecting cardiorenal causing ATN superimposed on CKD Uremia has improved after being dialyzed 3 days in a row. Last dialyzed 05/23/2019. Still oliguric with only 70 cc of urine yesterday despite receiving 60 mg IV Lasix. Continue to monitor I's and O's strictly. Nephrology following. Will likely need dialysis on Sunday morning. (2) Acute metabolic encephalopathy Is this a current diagnosis for this admission?: Yes Plan: Uremic encephalopathy. Currently significantly improved and pretty much r esolved as patient is back to his baseline mental status. (3) Acute respiratory failure with hypoxia Is this a current diagnosis for this admission?: Yes Plan: Secondary to acute on chronic systolic heart failure with pulmonary edema noted on chest x-ray today and severe pulmonary hypertension as well as underlying chronic COPD. Patient has tolerated being off for most of the weekend so far. Gets back on BiPAP nocturnally. Will maintain on nasal cannula through the day and nocturnal BiPAP. (4) Acute exacerbation of congestive heart failure Qualifiers: Heart failure type: systolic Qualified Code(s): I50.23 - Acute on chronic systolic (congestive) heart failure Is this a current diagnosis for this admission?: Yes Plan: Acute exacerbation of systolic heart failure NYHA stage III. 05/12/2019 2D echo LVEF 25%. Grade 1/4 mild diastolic dysfunction. RSVP 96-100 mmHg. proBNP is 12,700. Chest x-ray pulmonary edema. We will continue to remove fluid through dialysis as patient is not having much urinary output from the suspected ATN. Cardiology following. Hydralazine p.o. and nitroglycerin patch. Started on Toprol-XL yesterday. BP is better controlled. (5) Scabies Is this a current diagnosis for this admission?: Yes Plan: Crusted scabies. Will do 7-day treatment with permethrin. Day 4. (6) Cellulitis, leg Qualifiers: Laterality: unspecified laterality Qualified Code(s): L03.119 - Cellulitis of unspecified part of limb Is this a current diagnosis for this admission?: Yes Plan: Completed 10 days of antibiotics and specifically 8 days of cefepime for coverage of Acinetobacter, Staphylococcus and Pseudomonas from wound culture Received 3 days of IV clindamycin. (7) Peripheral vascular disease Is this a current diagnosis for this admission?: Yes Plan: Arterial Doppler positive for moderate hemodynamically significant lesion in the bilateral lower extremities on duplex imaging, focal stenosis identified. Sig nificant arterial obstructive disease noted in the popliteal on the right infrageniculate vessel on the left. Renal arterial duplex show no significant renal artery stenosis. Vascular surgeon consulted and recommending outpatient follow-up. (8) COPD (chronic obstructive pulmonary disease) Qualifiers: COPD type: COPD with acute exacerbation Qualified Code(s): J44.1 - Chronic obstructive pulmonary disease with (acute) exacerbation Is this a current diagnosis for this admission?: Yes Plan: Nebs as needed. Nocturnal BiPAP. Patient's uses home oxygen. (9) Physical deconditioning Is this a current diagnosis for this admission?: Yes Plan: Due to multiple chronic underlying end-stage comorbidities. Unlikely patient will be able to take care of herself independently. Patient is a good candidate for long-term placement. Discharge planning aware. PT OT - Time Time Spent with patient: Less than 15 minutes
[2019-05-25] MEDS: DOBUTAMINE HCL/D5W 500 MG/250 ML RTUINJ IV PRN (15:23)
[2019-05-25] MEDS: QUETIAPINE FUMARATE 300 MG PO SCH (21:57)
[2019-05-25] MEDS: QUETIAPINE FUMARATE 25 MG TABLET PO PRN (22:05)
[2019-05-26] MEDS: HYDRALAZINE HCL 25 MG TABLET PO SCH ×4 (00:38→17:06)
[2019-05-26] MEDS ORDERED: HEPARIN SOD (PORCINE) 1,000 UNIT/ML 10 ML VIAL IV PRN (05:00)
[2019-05-26] MEDS ORDERED: NORMAL SALINE 1000 ML 1,000 ML IV PRN (05:00)
[2019-05-26] MEDS: HEPARIN SOD (PORCINE) 5,000 UNIT/ML 1 ML VIAL SUBCUT SCH ×3 (05:42→21:16)
[2019-05-26] MEDS: PANTOPRAZOLE SODIUM 40 MG TABLET.DR PO SCH (05:47)
[2019-05-26 05:58] LABS: HEMATOCRIT 26.7 % (37.9-51.0); HEMOGLOBIN 8.6 g/dL (13.5-17.0); MEAN CORPUSCULAR HEMOGLOBIN 24.8 pg (27.0-33.4); MEAN CORPUSCULAR HGB CONC 32.1 g/dL (32.0-36.0); MEAN CORPUSCULAR VOLUME 77 fl (80-97); PLATELET COUNT 185 10^3/uL (150-450); RED BLOOD COUNT 3.46 10^6/uL (4.35-5.55); RED CELL DISTRIBUTION WIDTH 22.8 % (11.5-14.0); WHITE BLOOD COUNT 12.2 10^3/uL (4.0-10.5)
[2019-05-26 06:15] LABS: ALKALINE PHOSPHATASE 193 U/L (38-126); ANION GAP 17 (5-19); ASPARTATE AMINO TRANSFERASE 59 U/L (17-59); BILIRUBIN,DIRECT 1.6 mg/dL (0.0-0.4); BILIRUBIN,TOTAL 2.1 mg/dL (0.2-1.3); BLOOD UREA NITROGEN 102 mg/dL (7-20); CALCIUM 8.9 mg/dL (8.4-10.2); CARBON DIOXIDE 25 mmol/L (22-30); CHLORIDE 98 mmol/L (98-107); GLUCOSE 138 mg/dL (75-110); PHOSPHORUS 5.4 mg/dL (2.5-4.5); POTASSIUM 4.3 mmol/L (3.6-5.0); TOTAL PROTEIN 6.5 g/dL (6.3-8.2)
[2019-05-26] MEDS: IPRATROPIUM/ALBUTEROL 0.5-2.5 MG/3 ML AMPUL NEB SCH ×3 (08:11→20:57)
[2019-05-26] MEDS: DOBUTAMINE HCL/D5W 500 MG/250 ML RTUINJ IV PRN (08:45)
[2019-05-26] MEDS ORDERED: ACETAMINOPHEN 325 MG TABLET PO PRN (09:27)
[2019-05-26] MEDS: QUETIAPINE FUMARATE 25 MG TABLET PO PRN ×2 (11:57→20:41)
[2019-05-26] MEDS: ASPIRIN 81 MG TABLET, ENT COATED PO SCH (11:58)
[2019-05-26] MEDS: THIAMINE HCL 100 MG TABLET PO SCH (11:58)
[2019-05-26] MEDS: VITAMIN B COMPLEX TABLET PO SCH (11:58)
[2019-05-26] MEDS: METOPROLOL SUCCINATE 25 MG TAB.SR.24H PO SCH ×2 (11:58→21:10)
[2019-05-26] MEDS: MULTIVITAMIN TABLET PO SCH (11:58)
[2019-05-26] MEDS: NITROGLYCERIN 15 MG (0.6 MG/1 HR) PATCH.TD24 TD SCH (11:59)
[2019-05-26] MEDS: PAROXETINE HCL 20 MG TABLET PO SCH ×2 (11:59→12:01)
[2019-05-26] MEDS: FLUTICASONE/UMECLIDIN/VILANTER 100-62.5-25 MCG/DOSE IH SCH (12:00)
[2019-05-26] MEDS: QUETIAPINE FUMARATE 150 MG PO SCH (12:03)
[2019-05-26] MEDS: PERMETHRIN 5% CREAM 60 GM TP SCH (12:06)
[2019-05-26] MEDS: MINERAL OIL/PETROLATUM,WHITE CREAM 114 GM TP SCH (12:07)
--- NOTE | 2019-05-26 12:32 | PDOC PROGRESS REPORT ---
Subjective Progress Note for:: 05/26/19 Subjective:: I am seeing the patient on dialysis this morning. Patient is off the BiPAP and just on nasal cannula. He is awake and communicating but is somewhat confused although difficult to determine that because he is also very hard of hearing so he may not really hear things correctly. He was started on dobutamine drip by Dr. Lara yesterday and still currently on it so he needed to be done in the ICU today. Currently he is tolerating dialysis without any problems. He made only about 150 mm out urine output and has been oliguric. His kidney function continues to be abnormal with increased BUN and creatinine over the weekend since last dialysis on Sunday. Reason For Visit: HEART FAILURE Physical Exam Vital Signs: Temp Pulse Resp BP Pulse Ox 97.9 F 75 18 126/48 H 98 05/26/19 04:04 05/26/19 08:11 05/26/19 08:11 05/26/19 06:00 05/26/19 08:11 Intake & Output 05/25/19 05/26/19 05/27/19 06:59 06:59 06:59 Intake Total 838 875 205 Output Total 70 115 Balance 768 760 205 Weight 117.6 kg 121.5 kg Vitals during dialysis: Blood pressure 140/68, heart rate of 73, respiration of 18, blood flow rate of 250 mL/min and dialysate flow rate of 600 mL/min. Exam: General appearance: PRESENT: no acute distress, cooperative, well-developed, well-nourished Head exam: PRESENT: atraumatic, normocephalic Eye exam: PRESENT: conjunctiva slightly pale, PERRLA. ABSENT: scleral icterus Neck exam: ABSENT: JVD Respiratory exam: PRESENT: Normal breath sounds. ABSENT: crackles, rales, rhonchi, unlabored, wheezes Cardiovascular exam: PRESENT: Regular rate rhythm -+S1, +S2. ABSENT: diastolic murmur, systolic murmur GI/Abdominal exam: PRESENT: normal bowel sounds, soft. ABSENT: guarding, mass, tenderness Extremities exam: Significantly improved bilateral grade 1 lower extremity edema Neurological exam: PRESENT: alert, awake, oriented to person, place and time. Will occasionally add third words not responsive to the actual question. He is hard of hearing Skin exam: PRESENT: dry, warm, unchanged bilateral lower extremity stasis dermatitis with erythema Cardiovascular exam: PRESENT: +S1, +S2 GI/Abdominal exam: PRESENT: ascites, distended, firm, tenderness. ABSENT: guarding, soft Results Laboratory Results: 05/26/19 05:10 05/26/19 05:10 05/26/19 05/26/19 05:10 05:10 WBC 12.2 H RBC 3.46 L Hgb 8.6 L Hct 26.7 L MCV 77 L MCH 24.8 L MCHC 32.1 RDW 22.8 H Plt Count 185 Sodium 139.5 Potassium 4.3 Chloride 98 Carbon Dioxide 25 Anion Gap 17 BUN 102 H Creatinine 6.58 H Est GFR ( Amer) 10 L Glucose 138 H Calcium 8.9 Phosphorus 5.4 H Magnesium 3.0 H Total Bilirubin 2.1 H AST 59 Alkaline Phosphatase 193 H Total Protein 6.5 Albumin 3.0 L 05/12/19 05/12/19 05/13/19 12:00 18:31 00:16 Creatine Kinase CK-MB (CK-2) Troponin I 0.039 0.041 0.039 NT-Pro-B Natriuret Pep 8970 H 05/13/19 05/14/19 05/19/19 09:35 04:26 17:45 Creatine Kinase 230 H CK-MB (CK-2) 4.88 H Troponin I 0.047 NT-Pro-B Natriuret Pep [id number] H Impressions: Renal Artery Duplex 05/20/19 06:00 IMPRESSION: Nondiagnostic study Chest X-Ray 05/20/19 09:58 IMPRESSION: Pulmonary edema pattern KUB X-Ray 05/23/19 00:00 IMPRESSION: NO RADIOGRAPHIC EVIDENCE FOR ACUTE ABDOMINAL DISEASE. Assessment & Plan - Diagnosis (1) Acute kidney injury superimposed on chronic kidney disease Is this a current diagnosis for this admission?: Yes Plan: This is most likely secondary to multifactorial acute tubular necrosis, currently oliguric with uremic symptoms. Multifactorial causes include poor renal perfusion secondary to congestive heart failure with very low ventricular ejection fraction, diuresis, hypertension, and concurrent infection. Patient had uremic symptoms including acute metabolic encephalopathy, asterixis and worsening pulmonary edema. He was initiated on acute renal replacement therapy with acute hemodialysis last week on May 20. Baseline creatinine around 1.6- 1.8. Patient has not shown any renal recovery and continues to be oliguric. It is highly likely that he will need renal replacement therapy for a while and uncertain if he will have renal recovery. If he does not show any improvement in his kidney function I will have a PermCath placed and arrange an outpatient dialysis with continuous monitoring for possible renal recovery. We will do dialysis today for 2.5 hours, using the patient's right femoral dialysis catheter, with 3 potassium bath, blood flow rate of 250 mL per minute, dialysate flow rate of 600 mL per minute, ultrafiltration 2 L as tolerated, no heparin and no Procrit for now since this is an acute kidney injury. (2) Metabolic encephalopathy Is this a current diagnosis for this admission?: Yes Plan: This is most likely secondary to uremia and hypoxia. Resolved currently and back to baseline mental status. (3) Acute combined systolic and diastolic congestive heart failure, NYHA class 4 Is this a current diagnosis for this admission?: Yes Plan: Patient has left ventricular ejection fraction of 25% and grade 1/4 diastolic dysfunction. Patient has been on IV dobutamine drip IV Lasix for the last few days and subsequently discontinued. Dr. Lara resume the dobutamine drip yesterday due to hepatic congestion. (4) Acute respiratory failure with hypoxia Is this a current diagnosis for this admission?: Yes Plan: This is secondary to congestive heart failure with increasing pulmonary edema. Currently resolved. (5) Pulmonary hypertension Is this a current diagnosis for this admission?: Yes Plan: Very severe. (6) Hyperphosphatemia Is this a current diagnosis for this admission?: Yes Plan: Improved, currently at 5.4 from 5.6. (7) Hypermagnesemia Is this a current diagnosis for this admission?: Yes Plan: Due to ERNESTINE. Improved with magnesium of 3.0 from 3.4. (8) Elevated liver enzymes Is this a current diagnosis for this admission?: Yes Plan: Could be due to hepatic congestion due to severe cardiomyopathy. (9) Anemia Is this a current diagnosis for this admission?: Yes Plan: Worsened by acute illness. Seems worsening. We will continue to monitor. Even though he has only acute kidney injury without underlying chronic kidney di sease, will consider giving the patient Retacrit if hemoglobin continues to be low. (10) Cellulitis, leg Qualifiers: Laterality: unspecified laterality Qualified Code(s): L03.119 - Cellulitis of unspecified part of limb Is this a current diagnosis for this admission?: Yes Plan: Completed IV antibiotics per hospitalist service. (11) Foot ulcer, right Qualifiers: Non-pressure ulcer stage: unspecified non-pressure ulcer stage Qualified Code(s): L97.519 - Non-pressure chronic ulcer of other part of right foot with unspecified severity Is this a current diagnosis for this admission?: Yes (12) COPD (chronic obstructive pulmonary disease) Qualifiers: COPD type: COPD with acute exacerbation Qualified Code(s): J44.1 - Chronic obstructive pulmonary disease with (acute) exacerbation Is this a current diagnosis for this admission?: Yes (13) Peripheral vascular disease Is this a current diagnosis for this admission?: Yes Plan: Arterial duplex showed moderately hemodynamically significant lesions in bilateral lower extremities. (14) Stasis dermatitis of both legs Is this a current diagnosis for this admission?: Yes (15) Scabies Is this a current diagnosis for this admission?: Yes Plan: Being treated with permethrin by hospitalist. (16) Hearing loss Is this a current diagnosis for this admission?: Yes - Time Time with patient: 15-25 minutes
--- NOTE | 2019-05-26 15:41 | Progress Note ---
Provider Note Provider Note: CARDIOLOGY PROGRESS NOTE BY Dr. Radha Lara on 05/26/2019 SUBJECTIVE: The patient seen while he is having dialysis. He is more awake and alert. He denies any chest pain or discomfort there is no shortness of breath. In spite of his dialysis his creatinine is rising. Hence there is no real benefit so far from dobutamine drip. Hence we will wean off and discontinue the drip. There is no atrial or ventricular arrhythmia seen on the monitor. There is no TIA CVA symptoms. PHYSICAL EXAMINATION: The patient appears to be chronically ill and malnourished. But in no acute distress. Selected Entries 05/26/19 05/26/19 08:11 09:07 Heart Rate ( 73 Monitors) Respiratory 18 Rate Blood Pressure 140/68 H Blood Pressure 92 Mean O2 Sat by Pulse 98 94 Oximetry Oxygen Delivery Nasal Cannula Method ( includes room air) Oxygen Flow 6 Rate HEAD: Head is atraumatic normocephalic. Eyes: Pupils are equal round regular reactive light accommodation extraocular movements are normal there is no congenital pallor there is no scleral icterus. Ears: External auditory canals are clear, there are no lesions of the pinna. Nose: No deviated nasal septum and no inflammation of the nasal mucous membrane. Mouth: Mucous membranes of mouth are moist tongue is moist there is no ulcers there is no bleeding from the gums. Throat: There is no redness of the oropharynx there is no exudates. Skin: There is no petechia or ecchymosis there is no skin lesions or skin rashes. Neck: Neck is supple there is JVD present. Carotids equal there is no bruit there is no lymphadenopathy there is no neck stiffness. There is no goiter trachea central lungs: Lungs show diminished air entry and prolonged expiration. Scattered rhonchi and wheezing present. There is no no bibasilar rales of CHF. Few dry crackles in the right base. There is no chest wall te nderness. HEART: S1-S2 is heard there is no S3 gallop there is no S4 gallop S1 is of normal intensity. There is no rub. The systolic murmur of MR and TR. There is no prosthetic valve clicks heard. Abdomen: Abdomen is soft, mildly distended, no definite ascites. There is no hepatosplenomegaly. Bowel sounds well heard there is no tender areas of masses. There is no rebound guarding or rigidity. Extremities: Femorals are slightly diminished, there is no bruits. Leg pulses are diminished. There is trace 2- edema, with venous stasis dermatitis. There is no DVT or cellulitis there is no cyanosis or clubbing there is no DVT or cellulitis. There is no calf tenderness. 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 But in spite of this he has slow mentation. Psychiatric: The patient judgment and insight are intact and his affect is flat. The patient's 24-hour intake is 875 mL. His 24-hour output is 115 mL. Labs- All tests 24 hr 05/26/19 05/26/19 05:10 05:10 WBC 12.2 H RBC 3.46 L Hgb 8.6 L Hct 26.7 L MCV 77 L MCH 24.8 L MCHC 32.1 RDW 22.8 H Plt Count 185 Sodium 139.5 Potassium 4.3 Chloride 98 Carbon Dioxide 25 Anion Gap 17 BUN 102 H Creatinine 6.58 H Est GFR ( Amer) 10 L Est GFR (MDRD) Non-Af 9 L Glucose 138 H Calcium 8.9 Phosphorus 5.4 H Magnesium 3.0 H Total Bilirubin 2.1 H Direct Bilirubin 1.6 H Neonat Total Bilirubin Not Reportable Neonat Direct Bilirubin Not Reportable Neonat Indirect Bili Not Reportable AST 59 ALT 57 H Alkaline Phosphatase 193 H Total Protein 6.5 Albumin 3.0 L Chest X-Ray 05/12/19 11:53 IMPRESSION: No acute cardiopulmonary process. Chest X-Ray 05/14/19 00:00 IMPRESSION: No acute cardiopulmonary process. Chest X-Ray 05/15/19 15:34 IMPRESSION: Right jugular central line tip SVC. No Pneumothorax Renal Artery Duplex 05/20/19 06:00 IMPRESSION: Nondiagnostic study Chest X-Ray 05/20/19 09:58 IMPRESSION: Pulmonary edema pattern KUB X-Ray 05/23/19 00:00 IMPRESSION: NO RADIOGRAPHIC EVIDENCE FOR ACUTE ABDOMINAL DISEASE. iMPRESSION/RECOMMENDATION: 1. Acute respiratory failure secondary to combination of acute on chronic systolic heart failure, acute renal failure causing volume overload, acute exacerbation of COPD, and severe pulmonary hypertension. Continue BiPAP and oxygen support. 2. Acute on chronic systolic heart failure. Patient has been placed on fluid restriction of 1500 mL each 24 hours. The patient is off inotropes and IV nitroglycerin. He is on topical nitrates and hydralazine. His Entresto has been stopped, but still the patient renal function is deteriorating.. His renal artery Dopplers for renal artery stenosis remains negative albeit poor quality study. 3. Acute exacerbation COPD: Consider antibiotics. Continue respiratory treatments. This is improved. Will decrease the patient's dobutamine to 2.5 mcg/kg/min and subsequently discontinue the dobutamine since it is not really helping the patient. 4. Hypertension: At present blood pressure reasonable. 5. Severe pulmonary hypertension: The dobutamine the IV nitroglycerin and hydralazine should help. Later we will see the feasibility of starting sildenafil. 6. Acute on chronic renal failure. Avoid nephrotoxic drugs. The patient has been started on dialysis, in spite of this patient's renal function is deteriorating. The patient is now dialysis dependent and has reached end-stage renal disease. 7. Bipolar disorder 8. Tobacco abuse disorder. 9 coronary artery disease: History of coronary bypass graft surgery: No angina and troponin so far is not elevated. 10. Peripheral vascular disease: This will be addressed later on. 11. History of valvular repair: Details not available. Try to contact [facility] but they say they have not heard of the patient, and have no records on him. 12. Severe hearing loss: 13. Scabies. Medications reviewed. Medical regimen and management plan discussed with attending physician. Discussed with nephrology. Medical decision making is of high complexity. 40 minutes spent as patient more than 50% time spent in direct patient care.
--- NOTE | 2019-05-26 16:25 | PDOC PROGRESS REPORT ---
Subjective Progress Note for:: 05/26/19 Subjective:: Patient not experiencing any shortness of breath today. I encounter patient during dialysis in the ICU at which time patient appeared very comfortable. Reason For Visit: HEART FAILURE Physical Exam Vital Signs: Temp Pulse Resp BP Pulse Ox 97.9 F 71 17 158/79 H 100 05/26/19 04:04 05/26/19 14:00 05/26/19 14:00 05/26/19 15:00 05/26/19 13:46 Intake & Output 05/25/19 05/26/19 05/27/19 06:59 06:59 06:59 Intake Total 838 875 325 Output Total 70 115 30 Balance 768 760 295 Weight 117.6 kg 121.5 kg General appearance: PRESENT: no acute distress, cooperative Neck exam: ABSENT: JVD Respiratory exam: PRESENT: crackles, unlabored. ABSENT: tachypnea, wheezes Cardiovascular exam: PRESENT: RRR, +S1, +S2. ABSENT: tachycardia GI/Abdominal exam: PRESENT: normal bowel sounds, soft. ABSENT: rebound, rigid, tenderness Neurological exam: PRESENT: alert, awake Results Laboratory Results: 05/26/19 05:10 05/26/19 05:10 05/26/19 05/26/19 05:10 05:10 WBC 12.2 H RBC 3.46 L Hgb 8.6 L Hct 26.7 L MCV 77 L MCH 24.8 L MCHC 32.1 RDW 22.8 H Plt Count 185 Sodium 139.5 Potassium 4.3 Chloride 98 Carbon Dioxide 25 Anion Gap 17 BUN 102 H Creatinine 6.58 H Est GFR ( Amer) 10 L Glucose 138 H Calcium 8.9 Phosphorus 5.4 H Magnesium 3.0 H Total Bilirubin 2.1 H AST 59 Alkaline Phosphatase 193 H Total Protein 6.5 Albumin 3.0 L 05/12/19 05/12/19 05/13/19 12:00 18:31 00:16 Creatine Kinase CK-MB (CK-2) Troponin I 0.039 0.041 0.039 NT-Pro-B Natriuret Pep 8970 H 05/13/19 05/14/19 05/19/19 09:35 04:26 17:45 Creatine Kinase 230 H CK-MB (CK-2) 4.88 H Troponin I 0.047 NT-Pro-B Natriuret Pep 41082 H Impressions: Renal Artery Duplex 05/20/19 06:00 IMPRESSION: Nondiagnostic study Chest X-Ray 05/20/19 09:58 IMPRESSION: Pulmonary edema pattern KUB X-Ray 05/23/19 00:00 IMPRESSION: NO RADIOGRAPHIC EVIDENCE FOR ACUTE ABDOMINAL DISEASE. Assessment and Plan - Diagnosis (1) Acute on chronic renal failure Qualifiers: Acute renal failure type: with acute tubular necrosis Chronic kidney disease stage: stage 3 (moderate) Qualified Code(s): N17.0 - Acute kidney failure with tubular necrosis; N18.3 - Chronic kidney disease, stage 3 (mode rate) Is this a current diagnosis for this admission?: Yes Plan: Suspecting cardiorenal causing ATN superimposed on CKD Still very oliguric. Dialyzed today. We will continue dialysis until kidney function can recover. Continue to monitor I's and O's strictly. Nephrology following. (2) Acute respiratory failure with hypoxia Is this a current diagnosis for this admission?: Yes Plan: Multifactorial. Secondary to acute on chronic systolic heart failure with pulmonary edema noted on chest x-ray today and severe pulmonary hypertension as well as underlying chronic COPD. Nasal cannula during daytime and BiPAP at night. (3) Acute metabolic encephalopathy Is this a current diagnosis for this admission?: Yes Plan: Uremic encephalopathy has resolved. Currently patient is back to his baseline mental status. (4) Acute exacerbation of congestive heart failure Qualifiers: Heart failure type: systolic Qualified Code(s): I50.23 - Acute on chronic systolic (congestive) heart failure Is this a current diagnosis for this admission?: Yes Plan: Acute exacerbation of systolic heart failure NYHA stage III. 05/12/2019 2D echo LVEF 25%. Grade 1/4 mild diastolic dysfunction. RSVP 96-100 mmHg. proBNP is 12,700. Chest x-ray pulmonary edema. We will continue to remove fluid through dialysis as patient is oliguric from ATN. Cardiology following. Hydralazine p.o., Toprol-XL and nitroglycerin patch. Currently on dobutamine drip but may wean off. (5) Scabies Is this a current diagnosis for this admission?: Yes Plan: Crusted scabies. Will do 7-day treatment with permethrin. Day 5. (6) Cellulitis, leg Qualifiers: Laterality: unspecified laterality Qualified Code(s): L03.119 - Cellulitis of unspecified part of limb Is this a current diagnosis for this admission?: Yes Plan: Completed 10 days of antibiotics and specifically 8 days of cefepime for coverage of Acinetobacter, Staphylococcus and Pseudomonas from wound culture Received 3 days of IV clindamycin. (7) Peripheral vascular disease Is this a current diagnosis for this admission?: Yes Plan: Arterial Doppler positive for moderate hemodynamically significant lesion in the bilateral lower extremities on duplex imaging, focal stenosis identified. Significant arterial obstructive disease noted in the popliteal on the right infrageniculate vessel on the left. Renal arterial duplex show no significant renal artery stenosis. Vascular surgeon consulted and recommending outpatient follow-up. (8) COPD (chronic obstructive pulmonary disease) Qualifiers: COPD type: COPD with acute exacerbation Qualified Code(s): J44.1 - Chronic obstructive pulmonary disease with (acute) exacerbation Is this a current diagnosis for this admission?: Yes Plan: Nebs as needed. Nocturnal BiPAP. Patient's uses home oxygen. (9) Physical deconditioning Is this a current diagnosis for this admission?: Yes Plan: Due to multiple chronic underlying end-stage comorbidities. Unlikely patient will be able to take care of herself independently. Patient is a good candidate for long-term placement. Discharge planning aware. PT OT - Plan Summary Summary: Palliative care consulted given patient's multiple comorbidities and overall poor functional state. - Time Time Spent with patient: 15-24 minutes
[2019-05-26] MEDS ORDERED: GABAPENTIN 300 MG CAPSULE PO ONE (16:42)
[2019-05-26] MEDS: QUETIAPINE FUMARATE 300 MG PO SCH (21:16)
[2019-05-27] MEDS: HYDRALAZINE HCL 25 MG TABLET PO SCH ×4 (00:14→18:35)
[2019-05-27 04:49] LABS: HEMATOCRIT 25.5 % (37.9-51.0); HEMOGLOBIN 8.6 g/dL (13.5-17.0); MEAN CORPUSCULAR HGB CONC 33.7 g/dL (32.0-36.0); MEAN CORPUSCULAR VOLUME 77 fl (80-97); PLATELET COUNT 161 10^3/uL (150-450); WHITE BLOOD COUNT 11.2 10^3/uL (4.0-10.5)
[2019-05-27] MEDS: HEPARIN SOD (PORCINE) 5,000 UNIT/ML 1 ML VIAL SUBCUT SCH ×2 (05:04→16:15)
[2019-05-27] MEDS: PANTOPRAZOLE SODIUM 40 MG TABLET.DR PO SCH (05:06)
[2019-05-27 05:08] LABS: ABSOLUTE LYMPHOCYTES# (MANUAL) 0.7 10^3/uL (0.5-4.7); ABSOLUTE MONOCYTES # (MANUAL) 0.7 10^3/uL (0.1-1.4); BASOPHILS % (MANUAL) 0 % (0-2); EOSINOPHILS % (MANUAL) 0 % (0-6); LYMPHOCYTES % (MANUAL) 6 % (13-45); MONOCYTES % (MANUAL) 6 % (3-13); NUCLEATED RED BLOOD CELLS 1 /100 WBC (0); SEGMENTED NEUTROPHILS % (MAN) 88 % (42-78); TOTAL CELLS COUNTED 100
[2019-05-27 05:10] LABS: TOXIC GRANULATION 1+
[2019-05-27 05:11] LABS: ANISOCYTOSIS 3+; OVALOCYTES 1+; PLATELET COMMENT ADEQUATE; POIKILOCYTOSIS 3+; SCHISTOCYTES 1+; TARGET CELLS SLIGHT; TEAR DROP CELLS 1+
[2019-05-27 05:18] LABS: ALBUMIN 2.8 g/dL (3.5-5.0); ALKALINE PHOSPHATASE 221 U/L (38-126); ANION GAP 11 (5-19); ASPARTATE AMINO TRANSFERASE 67 U/L (17-59); BILIRUBIN,DIRECT 1.5 mg/dL (0.0-0.4); BILIRUBIN,TOTAL 2.3 mg/dL (0.2-1.3); CALCIUM 8.3 mg/dL (8.4-10.2); CARBON DIOXIDE 29 mmol/L (22-30); CHLORIDE 98 mmol/L (98-107); GLUCOSE 104 mg/dL (75-110); PHOSPHORUS 4.7 mg/dL (2.5-4.5); TOTAL PROTEIN 6.2 g/dL (6.3-8.2)
[2019-05-27 05:41] LABS: BLOOD UREA NITROGEN 68 mg/dL (7-20)
[2019-05-27] MEDS: IPRATROPIUM/ALBUTEROL 0.5-2.5 MG/3 ML AMPUL NEB SCH ×2 (08:29→14:10)
[2019-05-27] MEDS ORDERED: BACLOFEN 10 MG TABLET PO PRN (10:16)
[2019-05-27] MEDS: PERMETHRIN 5% CREAM 60 GM TP SCH (10:45)
[2019-05-27] MEDS: FLUTICASONE/UMECLIDIN/VILANTER 100-62.5-25 MCG/DOSE IH SCH (10:47)
[2019-05-27] MEDS: PAROXETINE HCL 20 MG TABLET PO SCH ×2 (10:47→10:48)
[2019-05-27] MEDS: ASPIRIN 81 MG TABLET, ENT COATED PO SCH (10:47)
[2019-05-27] MEDS: THIAMINE HCL 100 MG TABLET PO SCH (10:47)
[2019-05-27] MEDS: VITAMIN B COMPLEX TABLET PO SCH (10:47)
[2019-05-27] MEDS: METOPROLOL SUCCINATE 25 MG TAB.SR.24H PO SCH ×2 (10:47→22:35)
[2019-05-27] MEDS: GABAPENTIN 300 MG CAPSULE PO SCH (10:47)
[2019-05-27] MEDS: MULTIVITAMIN TABLET PO SCH (10:47)
[2019-05-27] MEDS: NITROGLYCERIN 15 MG (0.6 MG/1 HR) PATCH.TD24 TD SCH (10:48)
[2019-05-27] MEDS: QUETIAPINE FUMARATE 150 MG PO SCH (10:50)
[2019-05-27] MEDS: MINERAL OIL/PETROLATUM,WHITE CREAM 114 GM TP SCH (13:34)
--- NOTE | 2019-05-27 15:04 | Progress Note ---
Provider Note Provider Note: CARDIOLOGY PROGRESS NOTE by Dr. Radha Lara on 05/27/2019. SUBJECTIVE: The patient more awake and alert. Seems to be oriented x3 but is still limited by his significant hearing loss. There is no complaints of shortness of breath or chest pain or discomfort. He is off the BiPAP and is on nasal cannula. There is no arrhythmia seen on the monitor. He is making scanty amounts of urine. He is states that he is ready to work with physical therapy. PHYSICAL EXAMINATION: The patient appears to be chronically ill. At present in no acute distress. Selected Entries 05/27/19 11:53 Temperature 98.7 F Temperature Oral Source Pulse Rate 66 Respiratory 16 Rate Blood Pressure 114/53 L Blood Pressure 73 Mean BP Location Left Arm BP Position Supine O2 Sat by Pulse 96 Oximetry Oxygen Flow 6.00 Rate Oxygen Delivery Nasal Cannula Method HEAD: Head is atraumatic normocephalic. Eyes: Pupils are equal round regular reactive light accommodation extraocular movements are normal there is no congenital pallor there is no scleral icterus. Ears: External auditory canals are clear, there are no lesions of the pinna. Nose: No deviated nasal septum and no inflammation of the nasal mucous membrane. Mouth: Mucous membranes of mouth are moist tongue is moist there is no ulcers there is no bleeding from the gums. Throat: There is no redness of the oropharynx there is no exudates. Skin: There is no petechia or ecchymosis there is no skin lesions or skin rashes. Neck: Neck is supple there is JVD present. Carotids equal there is no bruit there is no lymphadenopathy there is no neck stiffness. There is no goiter trachea central lungs: Lungs show diminished air entry and prolonged expiration. Scattered rhonchi and wheezing present. There is no no bibasilar rales of CHF. Few dry crackles in the right base. There is no chest wall tenderness. HEART: S1-S2 is heard there is no S3 gallop there is no S4 gallop S1 is of normal intensity. There is no rub. The systolic murmur of MR and TR. There is no prosthetic valve clicks heard. Abdomen: Abdomen is soft, mildly distended, no definite ascites. There is no hepatosplenomegaly. Bowel sounds well heard there is no tender areas of masses. There is no rebound guarding or rigidity. Extremities: Femorals are slightly diminished, there is no bruits. Leg pulses are diminished. There is trace 2- edema, with venous stasis dermatitis. There is no DVT or cellulitis there is no cyanosis or clubbing there is no DVT or cellulitis. There is no calf tenderness. 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 But in spite of this he has slow mentation. Psychiatric: The patient judgment and insight are intact and his affect is flat. The patient's 24-hour intake is 575 mL and total 24-hour output is 2105 ml. Labs- All tests 24 hr 05/27/19 05/27/19 04:29 04:29 WBC 11.2 H RBC 3.30 L Hgb 8.6 L Hct 25.5 L MCV 77 L MCH 26.0 L MCHC 33.7 RDW 23.0 H Plt Count 161 Lymph % (Auto) Not Reportable Cherry % (Auto) Not Reportable Eos % (Auto) Not Reportable Baso % (Auto) Not Reportable Absolute Neuts (auto) Not Reportable Absolute Lymphs (auto) Not Reportable Absolute Monos (auto) Not Reportable Absolute Eos (auto) Not Reportable Absolute Basos (auto) Not Reportable Total Counted 100 Seg Neutrophils % Not Reportable Seg Neuts % (Manual) 88 H Lymphocytes % (Manual) 6 L Monocytes % (Manual) 6 Eosinophils % (Manual) 0 Basophils % (Manual) 0 Abs Neuts (Manual) 9.9 H Abs Lymphs (Manual) 0.7 Abs Monocytes (Manual) 0.7 Absolute Eos (Manual) 0.0 Abs Basophils (Manual) 0.0 Nucleated RBCs 1 Toxic Granulation 1+ Platelet Comment ADEQUATE Poikilocytosis 3+ Anisocytosis 3+ Target Cells SLIGHT Tear Drop Cells 1+ Ovalocytes 1+ Schistocytes 1+ Sodium 137.8 Potassium 4.0 Chloride 98 Carbon Dioxide 29 Anion Gap 11 BUN 68 H D Creatinine 5.19 H Est GFR ( Amer) 14 L Est GFR (MDRD) Non-Af 11 L Glucose 104 Calcium 8.3 L Phosphorus 4.7 H Total Bilirubin 2.3 H Direct Bilirubin 1.5 H Neonat Total Bilirubin Not Reportable Neonat Direct Bilirubin Not Reportable Neonat Indirect Bili Not Reportable AST 67 H ALT 61 H Alkaline Phosphatase 221 H Total Protein 6.2 L Albumin 2.8 L Chest X-Ray 05/12/19 11:53 IMPRESSION: No acute cardiopulmonary process. Chest X-Ray 05/14/19 00:00 IMPRESSION: No acute cardiopulmonary process. Chest X-Ray 05/15/19 15:34 IMPRESSION: Right jugular central line tip SVC. No Pneumothorax Renal Artery Duplex 05/20/19 06:00 IMPRESSION: Nondiagnostic study Chest X-Ray 05/20/19 09:58 IMPRESSION: Pulmonary edema pattern KUB X-Ray 05/23/19 00:00 IMPRESSION: NO RADIOGRAPHIC EVIDENCE FOR ACUTE ABDOMINAL DISEASE. iMPRESSION/RECOMMENDATION: 1. Acute respiratory failure secondary to combination of acute on chronic systolic heart failure, acute renal failure causing volume overload, acute exacerbation of COPD, and severe pulmonary hypertension. Continue BiPAP and oxygen support. 2. Acute on chronic systolic heart failure. Patient has been placed on fluid restriction of 1500 mL each 24 hours. The patient is off inotropes and IV nitroglycerin. He is on topical nitrates and hydralazine. His Entresto has been stopped, but still the patient renal function is deteriorating.. His renal artery Dopplers for renal artery stenosis remains negative albeit poor quality study. 3. Acute exacerbation COPD: Consider antibiotics. Continue respiratory treatments. This is improved. Will decrease the patient's dobutamine to 2.5 mcg/kg/min and subsequently discontinue the dobutamine since it is not really helping the patient. 4. Hypertension: At present blood pressure reasonable. 5. Severe pulmonary hypertension: The dobutamine the IV nitroglycerin and hydralazine should help. Later we will see the feasibility of starting sildenafil. 6. Acute on chronic renal failure. Avoid nephrotoxic drugs. The patient has been started on dialysis, in spite of this patient's renal function is deteriorating. The patient is now dialysis dependent and has reached end-stage renal disease. 7. Bipolar disorder 8. Tobacco abuse disorder. 9 coronary artery disease: History of coronary bypass graft surgery: No angina and troponin so far is not elevated. 10. Peripheral vascular disease: This will be addressed later on. 11. History of valvular repair: Details not available. Try to contact [facility] but they say they have not heard of the patient, and have no records on him. 12. Severe hearing loss: 13. Scabies. Medications reviewed. Medical regimen and management plan discussed with attending physician. Discussed with nephrology. Medical decision making is of moderate complexity. 40 minutes spent as patient more than 50% time spent in direct patient care. Will follow.
--- NOTE | 2019-05-27 17:20 | PDOC PROGRESS REPORT ---
Subjective Progress Note for:: 05/27/19 Subjective:: Patient feels well today. Denies any trouble breathing. Ready to work with physical therapy today. Denies chest pain. Reason For Visit: HEART FAILURE Physical Exam Vital Signs: Temp Pulse Resp BP Pulse Ox 98.7 F 77 16 114/53 L 96 05/27/19 11:53 05/27/19 14:10 05/27/19 14:10 05/27/19 11:53 05/27/19 11:53 Intake & Output 05/26/19 05/27/19 05/28/19 06:59 06:59 06:59 Intake Total 875 575 120 Output Total 115 2105 Balance 760 -1530 120 Weight 121.5 kg 117.3 kg General appearance: PRESENT: no acute distress, cooperative, hard of hearing - Extremely, obese Neck exam: ABSENT: JVD Respiratory exam: PRESENT: clear to auscultation torsten, unlabored. ABSENT: tachypnea, wheezes Cardiovascular exam: PRESENT: RRR, +S1, +S2. ABSENT: tachycardia GI/Abdominal exam: PRESENT: soft. ABSENT: rebound, rigid, tenderness Neurological exam: PRESENT: alert, awake Results Laboratory Results: 05/27/19 04:29 05/27/19 04:29 05/27/19 05/27/19 04:29 04:29 WBC 11.2 H RBC 3.30 L Hgb 8.6 L Hct 25.5 L MCV 77 L MCH 26.0 L MCHC 33.7 RDW 23.0 H Plt Count 161 Seg Neutrophils % Not Reportable Sodium 137.8 Potassium 4.0 Chloride 98 Carbon Dioxide 29 Anion Gap 11 BUN 68 H D Creatinine 5.19 H Est GFR ( Amer) 14 L Glucose 104 Calcium 8.3 L Phosphorus 4.7 H Total Bilirubin 2.3 H AST 67 H Alkaline Phosphatase 221 H Total Protein 6.2 L Albumin 2.8 L 05/12/19 05/12/19 05/13/19 12:00 18:31 00:16 Creatine Kinase CK-MB (CK-2) Troponin I 0.039 0.041 0.039 NT-Pro-B Natriuret Pep 8970 H 05/13/19 05/14/19 05/19/19 09:35 04:26 17:45 Creatine Kinase 230 H CK-MB (CK-2) 4.88 H Troponin I 0.047 NT-Pro-B Natriuret Pep 54402 H Impressions: Renal Artery Duplex 05/20/19 06:00 IMPRESSION: Nondiagnostic study Chest X-Ray 05/20/19 09:58 IMPRESSION: Pulmonary edema pattern KUB X-Ray 05/23/19 00:00 IMPRESSION: NO RADIOGRAPHIC EVIDENCE FOR ACUTE ABDOMINAL DISEASE. Assessment and Plan - Diagnosis (1) Acute on chronic renal failure Qualifiers: Acute renal failure type: with acute tubular necrosis Chronic kidney disease stage: stage 3 (moderate) Qualified Code(s): N17.0 - Acute kidney failure with tubular necrosis; N18.3 - Chronic kidney disease, stage 3 (moderate) Is this a current diagnosis for this admission?: Yes Plan: Suspecting cardiorenal causing ATN superimposed on CKD. Still very oliguric hence patient will need continued intermittent dialysis. Plan to place permacath tomorrow after which femoral access should be removed. Nephrology following. (2) Acute respiratory failure with hypoxia Is this a current diagnosis for this admission?: Yes Plan: Multifactorial. Secondary to acute on chronic systolic heart failure with pulmonary edema noted on chest x-ray and severe pulmonary hypertension as well as underlying chronic COPD. Nasal cannula during daytime and BiPAP at night. (3) Acute exacerbation of congestive heart failure Qualifiers: Heart failure type: systolic Qualified Code(s): I50.23 - Acute on chronic systolic (congestive) heart failure Is this a current diagnosis for this admission?: Yes Plan: Acute exacerbation of systolic heart failure NYHA stage III. 05/12/2019 2D echo LVEF 25%. Grade 1/4 mild diastolic dysfunction. RSVP 96-100 mmHg. proBNP is 12,700. Chest x-ray pulmonary edema. We will continue to remove fluid through dialysis as patient is oliguric from ATN. Cardiology following. Hydralazine p.o., Toprol-XL and nitroglycerin patch. (4) Scabies Is this a current diagnosis for this admission?: Yes Plan: Will do 7-day treatment with permethrin for crusted scabies. Day 6. (5) Acute metabolic encephalopathy Is this a current diagnosis for this admission?: Yes Plan: Uremic encephalopathy has resolved. Currently patient is back to his baseline mental status. (6) Cellulitis, leg Qualifiers: Laterality: unspecified laterality Qualified Code(s): L03.119 - Cellulitis of unspecified part of limb Is this a current diagnosis for this admission?: Yes Plan: Completed 10 days of antibiotics and specifically 8 days of cefepime for coverage of Acinetobacter, Staphylococcus and Pseudomonas from wound culture Received 3 days of IV clindamycin. (7) Peripheral vascular disease Is this a current diagnosis for this admission?: Yes Plan: Arterial Doppler positive for moderate hemodynamically significant lesion in the bilateral lower extremities on duplex imaging, focal stenosis identified. Significant arterial obstructive disease noted in the popliteal on the right infrageniculate vessel on the left. Renal arterial duplex show no significant renal artery stenosis. Vascular surgeon consulted and recommending outpatient follow-up. Gabapentin for neuropathic pain lower extremity. (8) COPD (chronic obstructive pulmonary disease) Qualifiers: COPD type: COPD with acute exacerbation Qualified Code(s): J44.1 - Chronic obstructive pulmonary disease with (acute) exacerbation Is this a current diagnosis for this admission?: Yes Plan: Nebs as needed. Nocturnal BiPAP. Patient's uses home oxygen. (9) Physical deconditioning Is this a current diagnosis for this admission?: Yes Plan: Due to multiple chronic underlying end-stage comorbidities. Unlikely patient will be able to take care of herself independently. Patient is a good candidate for long-term placement. Discharge planning aware. PT OT - Plan Summary Summary: Palliative care consulted given patient's multiple comorbidities and overall poor functional state. - Time Time Spent with patient: Less than 15 minutes
[2019-05-27] MEDS: QUETIAPINE FUMARATE 300 MG PO SCH (22:55)
--- NOTE | 2019-05-28 00:42 | PDOC PROGRESS REPORT ---
Subjective Progress Note for:: 05/27/19 Subjective:: Patient continues to do much better. He continues to be off the BiPAP and stable on nasal cannula. Although it is very difficult to communicate with him due to hearing loss, today he appears to be hearing but appropriate answers to questioning. Unfortunately though the patient is to be anuric with urine output only of 105 mL for the past 24 hours as recorded. He continues to have mildly elevated liver enzymes. His dobutamine drip has been discontinued. Reason For Visit: HEART FAILURE Physical Exam Vital Signs: Temp Pulse Resp BP Pulse Ox 97.9 F 70 18 110/55 L 93 05/27/19 07:56 05/27/19 08:30 05/27/19 08:30 05/27/19 07:56 05/27/19 08:30 Intake & Output 05/26/19 05/27/19 05/28/19 06:59 06:59 06:59 Intake Total 875 575 Output Total 115 2105 Balance 760 -1530 Weight 121.5 kg 117.3 kg Exam: General appearance: PRESENT: no acute distress, cooperative, well-developed, well-nourished; very difficult of hearing Head exam: PRESENT: atraumatic, normocephalic Eye exam: PRESENT: conjunctiva pale, PERRLA. ABSENT: scleral icterus Neck exam: ABSENT: JVD Respiratory exam: PRESENT: Diminished breath sounds. ABSENT: crackles, rales, rhonchi, unlabored, wheezes Cardiovascular exam: PRESENT: Regular rate rhythm -+S1, +S2. ABSENT: diastolic murmur, systolic murmur GI/Abdominal exam: PRESENT: normal bowel sounds, soft. ABSENT: guarding, mass, tenderness Extremities exam: Significantly improved grade 1 bilateral lower extremity pitting edema especially in dependent portion of his thighs and legs Neurological exam: PRESENT: alert, awake, oriented to person, place and time. Skin exam: PRESENT: dry, warm, Cardiovascular exam: PRESENT: +S1, +S2 GI/Abdominal exam: PRESENT: ascites, distended, firm, tenderness. ABSENT: guarding, soft Results Laboratory Results: 05/27/19 04:29 05/27/19 04:29 05/27/19 05/27/19 04:29 04:29 WBC 11.2 H RBC 3.30 L Hgb 8.6 L Hct 25.5 L MCV 77 L MCH 26.0 L MCHC 33.7 RDW 23.0 H Plt Count 161 Seg Neutrophils % Not Reportable Sodium 137.8 Potassium 4.0 Chloride 98 Carbon Dioxide 29 Anion Gap 11 BUN 68 H D Creatinine 5.19 H Est GFR ( Amer) 14 L Glucose 104 Calcium 8.3 L Phosphorus 4.7 H Total Bilirubin 2.3 H AST 67 H Alkaline Phosphatase 221 H Total Protein 6.2 L Albumin 2.8 L 05/12/19 05/12/19 05/13/19 12:00 18:31 00:16 Creatine Kinase CK-MB (CK-2) Troponin I 0.039 0.041 0.039 NT-Pro-B Natriuret Pep 8970 H 05/13/19 05/14/19 05/19/19 09:35 04:26 17:45 Creatine Kinase 230 H CK-MB (CK-2) 4.88 H Troponin I 0.047 NT-Pro-B Natriuret Pep 04297 H Impressions: Renal Artery Duplex 05/20/19 06:00 IMPRESSION: Nondiagnostic study Chest X-Ray 05/20/19 09:58 IMPRESSION: Pulmonary edema pattern KUB X-Ray 05/23/19 00:00 IMPRESSION: NO RADIOGRAPHIC EVIDENCE FOR ACUTE ABDOMINAL DISEASE. Assessment & Plan - Diagnosis (1) Acute kidney injury superimposed on chronic kidney disease Is this a current diagnosis for this admission?: Yes Plan: This is most likely secondary to multifactorial acute tubular necrosis, currently oliguric with uremic symptoms. Multifactorial causes include poor renal perfusion secondary to congestive heart failure with very low ventricular ejection fraction, diuresis, hypertension, and concurrent infection. Patient had uremic symptoms including acute metabolic encephalopathy, asterixis and worsening pulmonary edema. He was initiated on acute renal replacement therapy with acute hemodialysis last week on May 20. Baseline creatinine around 1.6- 1.8. Patient has not shown any renal recovery and continues to be oliguric. It is highly likely that he will need renal replacement therapy for a while and uncertain if he will have renal recovery. Today I discussed with the patient again regarding most likely need continued hemodialysis treatment until we see any renal recovery or if not been a continued to require chronic hemodialysis treatment. Explained to the patient regarding placement of PermCath and he agreed to proceed. I then called and consulted Dr. Castellon for PermCath placement. We will plan for next dialysis tomorrow. I will also consult discharge planning to arrange his outpatient hemodialysis treatment and ERNESTINE. (2) Metabolic encephalopathy Is this a current diagnosis for this admission?: Yes Plan: This is most likely secondary to uremia and hypoxia. Resolved currently and back to baseline mental status. (3) Acute combined systolic and diastolic congestive heart failure, NYHA class 4 Is this a current diagnosis for this admission?: Yes Plan: Patient has left ventricular ejection fraction of 25% and grade 1/4 diastolic dysfunction. Patient has been on IV dobutamine drip IV Lasix for the last few days and subsequently discontinued. Dr. Lara resumed dobutamine drip which was discontinued early a.m. today. (4) Acute respiratory failure with hypoxia Is this a current diagnosis for this admission?: Yes Plan: This is secondary to congestive heart failure with increasing pulmonary edema. Currently resolved. (5) Pulmonary hypertension Is this a current diagnosis for this admission?: Yes Plan: Very severe. (6) Hyperphosphatemia Is this a current diagnosis for this admission?: Yes Plan: Improved, currently at 5.4 from 5.6. (7) Hypermagnesemia Is this a current diagnosis for this admission?: Yes Plan: Due to ERNESTINE. Improved with magnesium of 3.0 from 3.4. (8) Elevated liver enzymes Is this a current diagnosis for this admission?: Yes Plan: Could be due to hepatic congestion due to severe cardiomyopathy. (9) Anemia Is this a current diagnosis for this admission?: Yes (10) Cellulitis, leg Qualifiers: Laterality: unspecified laterality Qualified Code(s): L03.119 - Cellulitis of unspecified part of limb Is this a current diagnosis for this admission?: Yes (11) Foot ulcer, right Qualifiers: Non-pressure ulcer stage: unspecified non-pressure ulcer stage Qualified Code(s): L97.519 - Non-pressure chronic ulcer of other part of right foot with unspecified severity Is this a current diagnosis for this admission?: Yes (12) COPD (chronic obstructive pulmonary disease) Qualifiers: COPD type: COPD with acute exacerbation Qualified Code(s): J44.1 - Chronic obstructive pulmonary disease with (acute) exacerbation Is this a current diagnosis for this admission?: Yes (13) Peripheral vascular disease Is this a current diagnosis for this admission?: Yes Plan: Arterial duplex showed moderately hemodynamically significant lesions in bilateral lower extremities. (14) Stasis dermatitis of both legs Is this a current diagnosis for this admission?: Yes (15) Scabies Is this a current diagnosis for this admission?: Yes Plan: Being treated with permethrin by hospitalist. (16) Hearing loss Is this a current diagnosis for this admission?: Yes - Time Time with patient: 15-25 minutes
[2019-05-28] MEDS: HYDRALAZINE HCL 25 MG TABLET PO SCH ×4 (00:45→17:12)
[2019-05-28] MEDS: ACETAMINOPHEN 325 MG TABLET PO PRN ×2 (04:22→15:13)
[2019-05-28] MEDS ORDERED: EPOETIN ALFA-EPBX 20,000 UNIT in SYRINGE, DISPOSABLE, 1 EACH IV PRN (05:00)
[2019-05-28] MEDS ORDERED: NORMAL SALINE 1000 ML 1,000 ML IV PRN (05:00)
[2019-05-28] MEDS ORDERED: HEPARIN SOD (PORCINE) 1,000 UNIT/ML 10 ML VIAL IV PRN (05:00)
[2019-05-28 06:03] LABS: ABSOLUTE BASOPHILS # (AUTO) 0.1 10^3/uL (0.0-0.2); ABSOLUTE EOSINOPHILS # (AUTO) 0.3 10^3/uL (0.0-0.6); ABSOLUTE LYMPHOCYTES (AUTO) 0.6 10^3/uL (0.5-4.7); ABSOLUTE MONOCYTES (AUTO) 0.6 10^3/uL (0.1-1.4); ABSOLUTE NEUT (AUTO) 8.9 10^3/uL (1.7-8.2); ABSOLUTE RETICS # 0.061 10^6/uL (0.028-0.122); BASOPHILS % (AUTO) 0.7 % (0-2); EOSINOPHILS % (AUTO) 2.7 % (0-6); HEMATOCRIT 26.9 % (37.9-51.0); HEMOGLOBIN 8.8 g/dL (13.5-17.0); LYMPHOCYTES % (AUTO) 6.2 % (13-45); MEAN CORPUSCULAR HEMOGLOBIN 25.7 pg (27.0-33.4); MEAN CORPUSCULAR HGB CONC 32.7 g/dL (32.0-36.0); MEAN CORPUSCULAR VOLUME 78 fl (80-97); MONOCYTES % (AUTO) 6.1 % (3-13); PLATELET COUNT 153 10^3/uL (150-450); RED BLOOD COUNT 3.43 10^6/uL (4.35-5.55); RED CELL DISTRIBUTION WIDTH 22.7 % (11.5-14.0); RETICULOCYTE COUNT (AUTO) 1.78 % (0.66-2.85); SEGMENTED NEUTROPHILS % (AUTO) 84.3 % (42-78); TOTAL CELLS COUNTED % (AUTO) 100 %; WHITE BLOOD COUNT 10.5 10^3/uL (4.0-10.5)
[2019-05-28 06:18] LABS: ALBUMIN 2.9 g/dL (3.5-5.0); ALKALINE PHOSPHATASE 281 U/L (38-126); ANION GAP 16 (5-19); ASPARTATE AMINO TRANSFERASE 54 U/L (17-59); BILIRUBIN,DIRECT 1.7 mg/dL (0.0-0.4); BLOOD UREA NITROGEN 83 mg/dL (7-20); CALCIUM 8.5 mg/dL (8.4-10.2); CARBON DIOXIDE 26 mmol/L (22-30); CHLORIDE 97 mmol/L (98-107); GLUCOSE 130 mg/dL (75-110); IRON(TIBC) 39.2 ug/dL (49-181); POTASSIUM 4.3 mmol/L (3.6-5.0); TOTAL PROTEIN 6.5 g/dL (6.3-8.2)
[2019-05-28] MEDS: PANTOPRAZOLE SODIUM 40 MG TABLET.DR PO SCH (07:30)
[2019-05-28] MEDS ORDERED: PERMETHRIN 5% CREAM 60 GM TP SCH (10:00)
--- NOTE | 2019-05-28 10:45 | PDOC PROGRESS REPORT ---
Subjective Progress Note for:: 05/28/19 Subjective:: Patient is currently undergoing hemodialysis. Extremely hard of hearing. Appears to be tolerating dialysis without difficulty. No new complaints that I am aware of. Reason For Visit: HEART FAILURE Physical Exam Vital Signs: Temp Pulse Resp BP Pulse Ox 97.5 F 62 20 110/45 L 90 L 05/28/19 04:03 05/28/19 07:00 05/28/19 04:03 05/28/19 04:03 05/28/19 04:03 Intake & Output 05/27/19 05/28/19 05/29/19 06:59 06:59 06:59 Intake Total 575 342 Output Total 2105 85 Balance -1530 257 Weight 117.3 kg 117.3 kg General appearance: PRESENT: no acute distress, cooperative, well-developed Head exam: PRESENT: atraumatic, normocephalic Eye exam: PRESENT: conjunctiva pink. ABSENT: scleral icterus Ear exam: PRESENT: normal external ear exam. ABSENT: bleeding, drainage Mouth exam: PRESENT: moist, tongue midline Respiratory exam: PRESENT: clear to auscultation torsten - Anteriorly, symmetrical, unlabored. ABSENT: prolonged expiratory phas, rales, rhonchi, tachypnea, wheezes Cardiovascular exam: PRESENT: RRR, +S1, +S2 GI/Abdominal exam: PRESENT: normal bowel sounds, soft. ABSENT: distended, guarding, tenderness Rectal exam: PRESENT: deferred Extremities exam: ABSENT: pedal edema Neurological exam: PRESENT: alert, awake, oriented to person, oriented to place, oriented to situation, motor sensory deficit - Significant hearing loss Psychiatric exam: PRESENT: flat affect. ABSENT: agitated, anxious Focused psych exam: ABSENT: delusional, restlessness Skin exam: PRESENT: dry, normal color, warm Results Laboratory Results: 05/28/19 05:33 05/28/19 05:33 05/28/19 05/28/19 05:33 05:33 WBC 10.5 RBC 3.43 L Hgb 8.8 L Hct 26.9 L MCV 78 L MCH 25.7 L MCHC 32.7 RDW 22.7 H Plt Count 153 Seg Neutrophils % 84.3 H Retic Count (auto) 1.78 Sodium 138.7 Potassium 4.3 Chloride 97 L Carbon Dioxide 26 Anion Gap 16 BUN 83 H Creatinine 6.99 H Est GFR ( Amer) 10 L Glucose 130 H Calcium 8.5 Iron 39.2 L TIBC 245 L % Saturation 16 Ferritin 124.00 Total Bilirubin 2.0 H AST 54 Alkaline Phosphatase 281 H Total Protein 6.5 Albumin 2.9 L Vitamin B12 950.0 H Folate 10.30 05/12/19 05/12/19 05/13/19 12:00 18:31 00:16 Creatine Kinase CK-MB (CK-2) Troponin I 0.039 0.041 0.039 NT-Pro-B Natriuret Pep 8970 H 05/13/19 05/14/19 05/19/19 09:35 04:26 17:45 Creatine Kinase 230 H CK-MB (CK-2) 4.88 H Troponin I 0.047 NT-Pro-B Natriuret Pep 08435 H Impressions: Renal Artery Duplex 05/20/19 06:00 IMPRESSION: Nondiagnostic study Chest X-Ray 05/20/19 09:58 IMPRESSION: Pulmonary edema pattern KUB X-Ray 05/23/19 00:00 IMPRESSION: NO RADIOGRAPHIC EVIDENCE FOR ACUTE ABDOMINAL DISEASE. Assessment and Plan - Diagnosis (1) Acute exacerbation of congestive heart failure Qualifiers: Heart failure type: combined systolic and diastolic Qualified Code(s): I50.43 - Acute on chronic combined systolic (congestive) and diastolic (congestive) heart failure Is this a current diagnosis for this admission?: Yes Plan: Acute exacerbation of systolic heart failure NYHA stage III. 05/12/2019 2D echo LVEF 25%. Grade 1/4 mild diastolic dysfunction. RSVP 96-100 mmHg. proBNP is 12,700. Chest x-ray pulmonary edema. We will continue to remove fluid through dialysis as patient is oliguric from AT. Cardiology following. Hydralazine p.o., Toprol-XL and nitroglycerin patch. 05/28/2019 Much improved. Fluid management with hemodialysis as patient is oliguric. Continue metoprolol, hydralazine and nitroglycerin patch. (2) Acute metabolic encephalopathy Is this a current diagnosis for this admission?: Yes Plan: Uremic encephalopathy has resolved. Currently patient is back to his baseline mental status. 05/28/2019 Difficult to tell patient's baseline. Hearing loss is certainly an issue. He does appear to answer questions appropriately. Still with uremia however. Encephalopathy certainly is improved. (3) Acute respiratory failure with hypoxia Is this a current diagnosis for this admission?: Yes Plan: Multifactorial. Secondary to acute on chronic systolic heart failure with pulmonary edema noted on chest x-ray and severe pulmonary hypertension as well as underlying chronic COPD. Nasal cannula during daytime and BiPAP at night. 05/28/2019 Still requiring oxygen supplementation. Multifactorial including underlying COPD, congestive heart failure and severe pulmonary hypertension. Continue daytime oxygen and nocturnal BiPAP. (4) Cellulitis, leg Qualifiers: Laterality: unspecified laterality Qualified Code(s): L03.119 - Cellulitis of unspecified part of limb Is this a current diagnosis for this admission?: Yes Plan: Completed 10 days of antibiotics and specifically 8 days of cefepime for coverage of Acinetobacter, Staphylococcus and Pseudomonas from wound culture Received 3 days of IV clindamycin. 05/28/2019 Resolved. Continue to monitor lower extremities. (5) Physical deconditioning Is this a current diagnosis for this admission?: Yes Plan: Due to multiple chronic underlying end-stage comorbidities. Unlikely patient will be able to take care of herself independently. Patient is a good candidate for long-term placement. Discharge planning aware. PT OT 05/28/2019 Continued planning for long-term placement. (6) Pulmonary hypertension Is this a current diagnosis for this admission?: Yes Plan: Severe pulmonary hypertension. RSVP 100 mmHg. Plan as per above. 05/28/2019 Continue current treatment plan (7) Scabies Is this a current diagnosis for this admission?: Yes Plan: Will do 7-day treatment with permethrin for crusted scabies. Day 6. 05/28/2019 Permethrin treatment completed (8) Acute on chronic renal failure Qualifiers: Acute renal failure type: with acute tubular necrosis Chronic kidney disease stage: stage 3 (moderate) Qualified Code(s): N17.0 - Acute kidney failure with tubular necrosis; N18.3 - Chronic kidney disease, stage 3 (moderate) Is this a current diagnosis for this admission?: Yes Plan: Suspecting cardiorenal causing ATN superimposed on CKD. Still very oliguric hence patient will need continued intermittent dialysis. Plan to place permacath tomorrow after which femoral access should be removed. Nephrology following. 05/28/2019 Patient currently receiving hemodialysis. Permacath placement scheduled for later today. Will need dialysis as an outpatient. Renal recovery prognosis is poor. (9) COPD (chronic obstructive pulmonary disease) Qualifiers: COPD type: COPD with acute exacerbation Qualified Code(s): J44.1 - Chronic obstructive pulmonary disease with (acute) exacerbation Is this a current diagnosis for this admission?: Yes Plan: Nebs as needed. Nocturnal BiPAP. Patient's uses home oxygen. 05/28/2019 Oxygen and BiPAP as above. Continue inhaler therapy. PRN nebulizer treatments available as well. (10) Peripheral vascular disease Is this a current diagnosis for this admission?: Yes Plan: Arterial Doppler positive for moderate hemodynamically significant lesion in the bilateral lower extremities on duplex imaging, focal stenosis identified. Significant arterial obstructive disease noted in the popliteal on the right infrageniculate vessel on the left. Renal arterial duplex show no significant renal artery stenosis. Vascular surgeon consulted and recommending outpatient follow-up. Gabapentin for neuropathic pain lower extremity. 05/28/2019 Continue current treatment plan. Ongoing management may be conservative due to patient's overall comorbidities making him high risk for surgical intervention. (11) Depression Qualifiers: Depression Type: unspecified Qualified Code(s): F32.9 - Major depressive disorder, single episode, unspecified Is this a current diagnosis for this admission?: Yes Plan: 05/28/2019 Continue Paxil - Plan Summary Summary: Palliative care consulted given patient's multiple comorbidities and overall poor functional state. - Time Time Spent with patient: 15-24 minutes Medications reviewed and adjusted accordingly: Yes Anticipated discharge: Other - Long-term care
[2019-05-28] MEDS: FLUTICASONE/UMECLIDIN/VILANTER 100-62.5-25 MCG/DOSE IH SCH (13:12)
[2019-05-28] MEDS: QUETIAPINE FUMARATE 150 MG PO SCH ×2 (13:13→22:33)
[2019-05-28] MEDS: ASPIRIN 81 MG TABLET, ENT COATED PO SCH (13:14)
[2019-05-28] MEDS: GABAPENTIN 300 MG CAPSULE PO SCH (13:15)
[2019-05-28] MEDS: PAROXETINE HCL 20 MG TABLET PO SCH ×2 (13:15→13:18)
[2019-05-28] MEDS: VITAMIN B COMPLEX TABLET PO SCH (13:15)
[2019-05-28] MEDS: MULTIVITAMIN TABLET PO SCH (13:15)
[2019-05-28] MEDS: THIAMINE HCL 100 MG TABLET PO SCH (13:15)
[2019-05-28] MEDS: NITROGLYCERIN 15 MG (0.6 MG/1 HR) PATCH.TD24 TD SCH (13:16)
[2019-05-28] MEDS: METOPROLOL SUCCINATE 25 MG TAB.SR.24H PO SCH ×2 (13:19→22:25)
[2019-05-28] MEDS: MINERAL OIL/PETROLATUM,WHITE CREAM 114 GM TP SCH (13:19)
[2019-05-28] MEDS ORDERED: DEXTROSE 50%-WATER 25 GM/50 ML DISP.SYRIN IV PRN ×2 (14:37)
[2019-05-28] MEDS ORDERED: DEXTROSE 40% GEL 15 GM TUBE PO PRN ×2 (14:37)
[2019-05-28] MEDS ORDERED: GLUCAGON,HUMAN RECOMB 1 MG INJ SUBCUT PRN (14:37)
[2019-05-28] MEDS ORDERED: CEFAZOLIN 1 GM/D5W RTU 1 GM/50 ML RTUPB IV ONE (16:00)
[2019-05-28] MEDS ORDERED: TUBERCULIN,PURIF.PROT.DERIV. 5 TU/0.1 ML TEST 1 ML VIAL ID ONE (16:08)
--- NOTE | 2019-05-28 22:27 | PDOC PROGRESS REPORT ---
Subjective Progress Note for:: 05/28/19 Subjective:: I am seeing the patient during dialysis treatment. His blood pressure is relatively low at this time. Patient states that he is fine and did not verbalize any complaints. Although he is difficult of hearing, he does respond appropriately once is able to hear to questions. He is currently being monitored throughout dialysis treatment. Reason For Visit: HEART FAILURE Physical Exam Vital Signs: Temp Pulse Resp BP Pulse Ox 97.5 F 62 20 110/45 L 90 L 05/28/19 04:03 05/28/19 07:00 05/28/19 04:03 05/28/19 04:03 05/28/19 04:03 Intake & Output 05/27/19 05/28/19 05/29/19 06:59 06:59 06:59 Intake Total 575 342 Output Total 2105 85 Balance -1530 257 Weight 117.3 kg 117.3 kg Vitals during dialysis: Blood pressure 91/53, blood flow rate of 250 mL/min and dialysate flow rate of 600 mL/min. Exam: General appearance: PRESENT: no acute distress, cooperative, well-developed, well-nourished Head exam: PRESENT: atraumatic, normocephalic Eye exam: PRESENT: conjunctiva pale, PERRLA. ABSENT: scleral icterus Neck exam: ABSENT: JVD Respiratory exam: PRESENT: Improved breath sounds. ABSENT: crackles, rales, rhonchi, unlabored, wheezes Cardiovascular exam: PRESENT: Regular rate rhythm -+S1, +S2. ABSENT: diastolic murmur, systolic murmur GI/Abdominal exam: PRESENT: normal bowel sounds, soft. ABSENT: guarding, mass, tenderness Extremities exam: ABSENT: No edema Neurological exam: PRESENT: alert, awake, oriented to person, place and time. Skin exam: PRESENT: dry, warm, Cardiovascular exam: PRESENT: +S1, +S2 GI/Abdominal exam: PRESENT: ascites, distended, firm, tenderness. ABSENT: guarding, soft Results Laboratory Results: 05/28/19 05:33 05/28/19 05:33 05/28/19 05/28/19 05:33 05:33 WBC 10.5 RBC 3.43 L Hgb 8.8 L Hct 26.9 L MCV 78 L MCH 25.7 L MCHC 32.7 RDW 22.7 H Plt Count 153 Seg Neutrophils % 84.3 H Retic Count (auto) 1.78 Sodium 138.7 Potassium 4.3 Chloride 97 L Carbon Dioxide 26 Anion Gap 16 BUN 83 H Creatinine 6.99 H Est GFR ( Amer) 10 L Glucose 130 H Calcium 8.5 Iron 39.2 L TIBC 245 L % Saturation 16 Ferritin 124.00 Total Bilirubin 2.0 H AST 54 Alkaline Phosphatase 281 H Total Protein 6.5 Albumin 2.9 L Vitamin B12 950.0 H Folate 10.30 05/12/19 05/12/19 05/13/19 12:00 18:31 00:16 Creatine Kinase CK-MB (CK-2) Troponin I 0.039 0.041 0.039 NT-Pro-B Natriuret Pep 8970 H 05/13/19 05/14/19 05/19/19 09:35 04:26 17:45 Creatine Kinase 230 H CK-MB (CK-2) 4.88 H Troponin I 0.047 NT-Pro-B Natriuret Pep 96118 H Impressions: Renal Artery Duplex 05/20/19 06:00 IMPRESSION: Nondiagnostic study Chest X-Ray 05/20/19 09:58 IMPRESSION: Pulmonary edema pattern KUB X-Ray 05/23/19 00:00 IMPRESSION: NO RADIOGRAPHIC EVIDENCE FOR ACUTE ABDOMINAL DISEASE. Assessment & Plan - Diagnosis (1) Acute kidney injury superimposed on chronic kidney disease Is this a current diagnosis for this admission?: Yes Plan: This is most likely secondary to multifactorial acute tubular necrosis, currently oliguric with uremic symptoms. Multifactorial causes include poor renal perfusion secondary to congestive heart failure with very low ventricular ejection fraction, diuresis, hypertension, and concurrent infection. Patient had uremic symptoms including acute metabolic encephalopathy, asterixis and worsening pulmonary edema. He was initiated on acute renal replacement therapy with acute hemodialysis last week on May 20. Baseline creatinine around 1.6- 1.8. Patient has not shown any renal recovery and continues to be oliguric. It is highly likely that he will need renal replacement therapy for a while and uncertain if he will have renal recovery. Need for continued renal replacement therapy even as an outpatient discussed with patient yesterday and he agreed. I also talked to Dr. Castellon regarding PermCath placement yesterday. Patient is supposed to be taken PermCath placement today sometime. We will do dialysis today for 3 hours, using the patient's right femoral tri alysis catheter, with 3 potassium bath, blood flow rate of 250 mL per minute, dialysate flow rate of 600 mL per minute, ultrafiltration 500ml to 1 L as tolerated, no heparin and Procrit with 20,000 units during dialysis intravenously. (2) Metabolic encephalopathy Is this a current diagnosis for this admission?: Yes Plan: This is most likely secondary to uremia and hypoxia. Resolved currently and back to baseline mental status. (3) Acute combined systolic and diastolic congestive heart failure, NYHA class 4 Is this a current diagnosis for this admission?: Yes Plan: Patient has left ventricular ejection fraction of 25% and grade 1/4 diastolic dysfunction. Patient has been on IV dobutamine drip IV Lasix for the last few days and subsequently discontinued. Dr. Lara resumed dobutamine drip which was discontinued early a.m. today. (4) Acute respiratory failure with hypoxia Is this a current diagnosis for this admission?: Yes Plan: This is secondary to congestive heart failure with increasing pulmonary edema. Currently resolved. (5) Pulmonary hypertension Is this a current diagnosis for this admission?: Yes Plan: Very severe. (6) Hyperphosphatemia Is this a current diagnosis for this admission?: Yes Plan: Improved, currently at 5.4 from 5.6. (7) Hypermagnesemia Is this a current diagnosis for this admission?: Yes Plan: Due to ERNESTINE. Improved with magnesium of 3.0 from 3.4. (8) Elevated liver enzymes Is this a current diagnosis for this admission?: Yes Plan: Could be due to hepatic congestion due to severe cardiomyopathy. (9) Anemia Is this a current diagnosis for this admission?: Yes Plan: Worsened by acute illness. Start Retacrit during dialysis. (10) Cellulitis, leg Qualifiers: Laterality: unspecified laterality Qualified Code(s): L03.119 - Cellulitis of unspecified part of limb Is this a current diagnosis for this admission?: Yes Plan: Completed IV antibiotics per hospitalist service. (11) Foot ulcer, right Qualifiers: Non-pressure ulcer stage: unspecified non-pressure ulcer stage Qualified Code(s): L97.519 - Non-pressure chronic ulcer of other part of right foot with unspecified severity Is this a current diagnosis for this admission?: Yes (12) COPD (chronic obstructive pulmonary disease) Qualifiers: COPD type: COPD with acute exacerbation Qualified Code(s): J44.1 - Chronic obstructive pulmonary disease with (acute) exacerbation Is this a current diagnosis for this admission?: Yes (13) Peripheral vascular disease Is this a current diagnosis for this admission?: Yes Plan: Arterial duplex showed moderately hemodynamically significant lesions in bilateral lower extremities. (14) Stasis dermatitis of both legs Is this a current diagnosis for this admission?: Yes (15) Scabies Is this a current diagnosis for this admission?: Yes Plan: Being treated with permethrin by hospitalist. (16) Hearing loss Is this a current diagnosis for this admission?: Yes - Time Time with patient: 15-25 minutes
[2019-05-28] MEDS: QUETIAPINE FUMARATE 300 MG PO SCH (22:32)
[2019-05-29] MEDS: HYDRALAZINE HCL 25 MG TABLET PO SCH ×2 (00:42→06:05)
[2019-05-29] MEDS: PANTOPRAZOLE SODIUM 40 MG TABLET.DR PO SCH (06:05)
[2019-05-29] MEDS: HEPARIN SOD (PORCINE) 5,000 UNIT/ML 1 ML VIAL SUBCUT SCH ×3 (06:05→21:11)
[2019-05-29] MEDS ORDERED: FENTANYL CITRATE INJ/PF 100 MCG/2 ML AMPUL ONE (06:57)
[2019-05-29] MEDS ORDERED: MIDAZOLAM 2 MG/2 ML INJ ONE (06:57)
[2019-05-29] MEDS ORDERED: PROPOFOL INJ 200 MG/20 ML VIAL IV ONE (06:57)
[2019-05-29] MEDS ORDERED: KETAMINE HCL INJ 500 MG/10 ML VIAL ONE (06:57)
[2019-05-29] MEDS: LIDOCAINE 1%/EPINEPHRINE INJ 20 ML VIAL ONE ×2 (07:25→08:24)
[2019-05-29] MEDS ORDERED: CEFAZOLIN INJ 1 GM VIAL ONE (07:49)
[2019-05-29] MEDS ORDERED: DIPHENHYDRAMINE HCL 50 MG/ML VIAL IV PRN (08:17)
[2019-05-29] MEDS ORDERED: FENTANYL CITRATE INJ/PF 100 MCG/2 ML AMPUL IV PRN ×2 (08:17)
[2019-05-29] MEDS ORDERED: ONDANSETRON HCL INJ/PF 4 MG/2 ML SDV IV PRN (08:17)
[2019-05-29] MEDS ORDERED: MEPERIDINE HCL/PF INJ 25 MG/1 ML DISP.SYRIN IV PRN (08:17)
[2019-05-29] MEDS ORDERED: HEPARIN SOD (PORCINE) 5,000 UNIT/ML 1 ML VIAL ONE (08:51)
--- NOTE | 2019-05-29 08:54 | Operative Report ---
Operative Report DATE OF SURGERY: 05/29/19 PREOPERATIVE DIAGNOSIS: ESRD POSTOPERATIVE DIAGNOSIS: same OPERATION: 1. Focused ultrasound of the neck. 2. Insertion of 23 cm cuff to tip permacatheter right internal jugular vein. 3. Interpretation of intraoperative fluoroscopy SURGEON: CAROLE LOGAN ANESTHESIA: LMAC TISSUE REMOVED OR ALTERED: None COMPLICATIONS: None ESTIMATED BLOOD LOSS: Minimal INTRAOPERATIVE FINDINGS: See below PROCEDURE: The patient was taken the preop holding her to the main operating room where LMAC anesthesia was induced. Arms were tucked, facial hair on the right side of the neck and face shaved, then the right neck and chest wall were prepped and draped sterile fashion. Surgical plan and surgical timeout were conducted. Using ultrasound, real-time as a guide, the right neck was anesthetized with 1% plain lidocaine. A fiona was made the skin with a 15 blade, and micro needle and wire threaded into the right anterior jugular vein. A suitable site for exit of the permacatheter was chosen in the right chest wall. The skin was anesthetized 1% plain lidocaine and the intervening skin numbed up as well. A fiona was made in the skin in the subclavian position, and a 23 cm tip to cuff permacatheter was threaded between the 2 incisions. The micro wire was then switched over to a tensional 0.030 guidewire using the micro introducer sheath. Then under direct fluoroscopic guidance, the small, medium and large dilators were threaded over the wire dilating up the subcutaneous tract. Then threaded the dilator and strip away sheath over the wire, dilator and wire removed, and catheter free and threaded into the strip away sheath. The sheath was removed, leaving the catheter in position. The tip of the catheter was in the superior vena cava right atrial junction. There was no kinking of the catheter at the level of the neck. We aspirated and flushed the lumens of the catheter several times and the catheter functioned satisfactorily. Wounds were closed with 3-0 Vicryl, and catheter secured to the skin with 2-0 Prolene suture at 2 sites, Biopatch applied. Benzoin Steri-Strips applied to the right neck, and catheter exit site covered with OpSite. Patient tolerated procedure well. He was taken to the operating room in stable condition.
--- NOTE | 2019-05-29 10:18 | RADIOLOGY REPORT (SQ) ---
EXAM DESCRIPTION: FLUORO/CV PLACEMENT COMPLETED DATE/TIME: 05/29/2019 9:07 am REASON FOR STUDY: RIGHT PERMACATH PLACEMENT ASSISTED WITH FLUOROSCOPY IN OR COMPARISON: None. FLUOROSCOPY TIME: 0.4 minutes 3 images saved to PACS. TECHNIQUE: Intra-operative images acquired during surgical procedure to evaluate progress. NUMBER OF IMAGES: 3 LIMITATIONS: None. FINDINGS: Placement of right-sided central line with tip overlying SVC. IMPRESSION: IMAGE(S) OBTAINED DURING PROCEDURE. COMMENT: Quality ID [id number]: Final reports for procedures using fluoroscopy that document radiation exp osure indices, or exposure time and number of fluorographic images (if radiation exposure indices are not available) Please consult full operative report of the attending physician for description of the procedure. TECHNICAL DOCUMENTATION: JOB ID: [id number] 2010 [employer]- All Rights Reserved Reading location - IP/workstation name: [email or web address]
[2019-05-29] MEDS: VITAMIN B COMPLEX TABLET PO SCH (10:27)
[2019-05-29] MEDS: ASPIRIN 81 MG TABLET, ENT COATED PO SCH (10:27)
[2019-05-29] MEDS: THIAMINE HCL 100 MG TABLET PO SCH (10:27)
[2019-05-29] MEDS: MULTIVITAMIN TABLET PO SCH (10:27)
[2019-05-29] MEDS: GABAPENTIN 300 MG CAPSULE PO SCH (10:27)
[2019-05-29] MEDS: PAROXETINE HCL 20 MG TABLET PO SCH ×2 (10:27)
[2019-05-29] MEDS: FLUTICASONE/UMECLIDIN/VILANTER 100-62.5-25 MCG/DOSE IH SCH (10:28)
[2019-05-29] MEDS: NITROGLYCERIN 15 MG (0.6 MG/1 HR) PATCH.TD24 TD SCH (10:29)
[2019-05-29] MEDS: METOPROLOL SUCCINATE 25 MG TAB.SR.24H PO SCH ×2 (10:29→21:12)
[2019-05-29] MEDS: MINERAL OIL/PETROLATUM,WHITE CREAM 114 GM TP SCH (10:32)
[2019-05-29] MEDS: HYDRALAZINE HCL 50 MG TABLET PO SCH ×3 (13:14→17:25)
--- NOTE | 2019-05-29 14:57 | PDOC PROGRESS REPORT ---
Subjective Progress Note for:: 05/29/19 Subjective:: Patient had his permacath placed earlier. He is doing well. His main complaint is that he is hungry. Reason For Visit: HEART FAILURE Physical Exam Vital Signs: Temp Pulse Resp BP Pulse Ox 97.6 F 67 20 116/61 90 L 05/29/19 11:33 05/29/19 14:00 05/29/19 13:36 05/29/19 11:33 05/29/19 13:36 Intake & Output 05/28/19 05/29/19 05/30/19 06:59 06:59 06:59 Intake Total 342 2022 250 Output Total 85 1020 10 Balance 257 1002 240 Weight 117.3 kg 119.7 kg General appearance: PRESENT: no acute distress, cooperative, disheveled, well- developed Head exam: PRESENT: atraumatic, normocephalic Ear exam: PRESENT: normal external ear exam. ABSENT: bleeding, drainage Mouth exam: PRESENT: moist, tongue midline Respiratory exam: PRESENT: clear to auscultation torsten - Anteriorly, symmetrical, unlabored. ABSENT: prolonged expiratory phas, rales, rhonchi, tachypnea, wheezes Cardiovascular exam: PRESENT: RRR, +S1, +S2. ABSENT: diastolic murmur, systolic murmur GI/Abdominal exam: PRESENT: normal bowel sounds, soft. ABSENT: distended, guarding, mass, tenderness Rectal exam: PRESENT: deferred Extremities exam: PRESENT: +1 edema Neurological exam: PRESENT: alert, awake, oriented to person, oriented to place, oriented to time, oriented to situation, CN II-XII grossly intact - Except significant hearing loss Psychiatric exam: PRESENT: appropriate affect. ABSENT: agitated, anxious Skin exam: PRESENT: other - Legs exhibit discoloration consistent with venous insufficiency. Some keratin scaling. Results Laboratory Results: 05/28/19 05:33 05/28/19 05:33 05/12/19 05/12/19 05/13/19 12:00 18:31 00:16 Creatine Kinase CK-MB (CK-2) Troponin I 0.039 0.041 0.039 NT-Pro-B Natriuret Pep 8970 H 05/13/19 05/14/19 05/19/19 09:35 04:26 17:45 Creatine Kinase 230 H CK-MB (CK-2) 4.88 H Troponin I 0.047 NT-Pro-B Natriuret Pep 76995 H Impressions: Renal Artery Duplex 05/20/19 06:00 IMPRESSION: Nondiagnostic study Chest X-Ray 05/20/19 09:58 IMPRESSION: Pulmonary edema pattern KUB X-Ray 05/23/19 00:00 IMPRESSION: NO RADIOGRAPHIC EVIDENCE FOR ACUTE ABDOMINAL DISEASE. Guidance Fluoroscopy 05/29/19 00:00 IMPRESSION: IMAGE(S) OBTAINED DURING PROCEDURE. Assessment and Plan - Diagnosis (1) Acute exacerbation of congestive heart failure Qualifiers: Heart failure type: combined systolic and diastolic Qualified Code(s): I 50.43 - Acute on chronic combined systolic (congestive) and diastolic (congestive) heart failure Is this a current diagnosis for this admission?: Yes Plan: Acute exacerbation of systolic heart failure NYHA stage III. 05/12/2019 2D echo LVEF 25%. Grade 1/4 mild diastolic dysfunction. RSVP 96-100 mmHg. proBNP is 12,700. Chest x-ray pulmonary edema. We will continue to remove fluid through dialysis as patient is oliguric from ATN. Cardiology following. Hydralazine p.o., Toprol-XL and nitroglycerin patch. 05/28/2019 Much improved. Fluid management with hemodialysis as patient is oliguric. Continue metoprolol, hydralazine and nitroglycerin patch. 05/29/2019 It seems that the patient will need chronic dialysis. The hope is eventual im provement in renal function. Outpatient dialysis will be arranged to control fluid management as the patient is oliguric. Otherwise continue current medication regimen. (2) Acute metabolic encephalopathy Is this a current diagnosis for this admission?: Yes Plan: Uremic encephalopathy has resolved. Currently patient is back to his baseline mental status. 05/28/2019 Difficult to tell patient's baseline. Hearing loss is certainly an issue. He does appear to answer questions appropriately. Still with uremia however. Encephalopathy certainly is improved. 05/29/2019 Improved. Likely at baseline. (3) Acute respiratory failure with hypoxia Is this a current diagnosis for this admission?: Yes Plan: Multifactorial. Secondary to acute on chronic systolic heart failure with pulmonary edema noted on chest x-ray and severe pulmonary hypertension as well as underlying chronic COPD. Nasal cannula during daytime and BiPAP at night. 05/28/2019 Still requiring oxygen supplementation. Multifactorial including underlying COPD, congestive heart failure and severe pulmonary hypertension. Continue daytime oxygen and nocturnal BiPAP. 05/29/2019 This may be the patient's baseline. He will be going to long-term care where they will be able to continue attempts at weaning to room air. (4) Cellulitis, leg Qualifiers: Laterality: unspecified laterality Qualified Code(s): L03.119 - Cellulitis of unspecified part of limb Is this a current diagnosis for this admission?: Yes Plan: Completed 10 days of antibiotics and specifically 8 days of cefepime for coverage of Acinetobacter, Staphylococcus and Pseudomonas from wound culture Received 3 days of IV clindamycin. 05/28/2019 Resolved. Continue to monitor lower extremities. 05/29/2019 Antibiotic therapy completed. Patient exhibits classic changes of chronic venous insufficiency. (5) Physical deconditioning Is this a current diagnosis for this admission?: Yes Plan: Due to multiple chronic underlying end-stage comorbidities. Unlikely patient will be able to take care of herself independently. Patient is a good candidate for long-term placement. Discharge planning aware. PT OT 05/28/2019 Continued planning for long-term placement. 05/29/2019 As above. I believe the patient is going to [facility] or [place]. (6) Pulmonary hypertension Is this a current diagnosis for this admission?: Yes Plan: Severe pulmonary hypertension. RSVP 100 mmHg. Plan as per above. 05/28/2019 Continue current treatment plan 05/29/2019- The patient is tolerating the current therapy. Consider follow-up with pulmonology as an outpatient for consideration of medication adjustment versus a dedicated pulmonary hypertension clinic (7) Scabies Is this a current diagnosis for this admission?: Yes Plan: Will do 7-day treatment with permethrin for crusted scabies. Day 6. 05/28/2019 Permethrin treatment completed 05/29/2019 Treatment completed (8) Acute on chronic renal failure Qualifiers: Acute renal failure type: with acute tubular necrosis Chronic kidney disease stage: stage 3 (moderate) Qualified Code(s): N17.0 - Acute kidney failure with tubular necrosis; N18.3 - Chronic kidney disease, stage 3 (moderate) Is this a current diagnosis for this admission?: Yes Plan: Suspecting cardiorenal causing ATN superimposed on CKD. Still very oliguric hence patient will need continued intermittent dialysis. Plan to place permacath tomorrow after which femoral access should be removed. Nephrology following. 05/28/2019 Patient currently receiving hemodialysis. Permacath placement scheduled for later today. Will need dialysis as an outpatient. Renal recovery prognosis is poor. 05/29/2019 Will be on hemodialysis for some time and likely permanently. He had his permacath placed. Is due for dialysis tomorrow and then can transfer to the assisted facility. (9) COPD (chronic obstructive pulmonary disease) Qualifiers: COPD type: COPD with acute exacerbation Qualified Code(s): J44.1 - Chronic obstructive pulmonary disease with (acute) exacerbation Is this a current diagnosis for this admission?: Yes Plan: Nebs as needed. Nocturnal BiPAP. Patient's uses home oxygen. 05/28/2019 Oxygen and BiPAP as above. Continue inhaler therapy. PRN nebulizer treatments available as well. 05/29/2019 No change in regimen (10) Peripheral vascular disease Is this a current diagnosis for this admission?: Yes Plan: Arterial Doppler positive for moderate hemodynamically significant lesion in the bilateral lower extremities on duplex imaging, focal stenosis identified. Significant arterial obstructive disease noted in the popliteal on the right infrageniculate vessel on the left. Renal arterial duplex show no significant renal artery stenosis. Vascular surgeon consulted and recommending outpatient follow-up. Gabapentin for neuropathic pain lower extremity. 05/28/2019 Continue current treatment plan. Ongoing management may be conservative due to patient's overall comorbidities making him high risk for surgical intervention. 05/29/2019 Continue Plavix. Due to peripheral vascular disease compression therapy for his legs is contraindicated. (11) Depression Qualifiers: Depression Type: unspecified Qualified Code(s): F32.9 - Major depressive disorder, single episode, unspecified Is this a current diagnosis for this admission?: Yes Plan: 05/28/2019 Continue Paxil 05/29/2019 The current medication regimen appears to be helping. Continue same. Consider dose adjustment in the future if warranted. - Plan Summary Summary: Palliative care consulted given patient's multiple comorbidities and overall poor functional state. - Time Time Spent with patient: 15-24 minutes Medications reviewed and adjusted accordingly: Yes Anticipated discharge: SNF
[2019-05-29] MEDS: QUETIAPINE FUMARATE 150 MG PO SCH (22:50)
[2019-05-29] MEDS: QUETIAPINE FUMARATE 300 MG PO SCH (22:50)
[2019-05-30] MEDS: HYDRALAZINE HCL 50 MG TABLET PO SCH ×4 (02:10→17:17)
[2019-05-30] MEDS ORDERED: HEPARIN SOD (PORCINE) 1,000 UNIT/ML 10 ML VIAL IV PRN (05:00)
[2019-05-30] MEDS ORDERED: EPOETIN ALFA-EPBX 20,000 UNIT in SYRINGE, DISPOSABLE, 1 EACH IV PRN (05:00)
[2019-05-30] MEDS ORDERED: NORMAL SALINE 1000 ML 1,000 ML IV PRN (05:00)
[2019-05-30 05:12] LABS: ABSOLUTE BASOPHILS # (AUTO) 0.1 10^3/uL (0.0-0.2); ABSOLUTE EOSINOPHILS # (AUTO) 0.3 10^3/uL (0.0-0.6); ABSOLUTE LYMPHOCYTES (AUTO) 0.8 10^3/uL (0.5-4.7); ABSOLUTE MONOCYTES (AUTO) 0.7 10^3/uL (0.1-1.4); ABSOLUTE NEUT (AUTO) 9.3 10^3/uL (1.7-8.2); BASOPHILS % (AUTO) 0.6 % (0-2); EOSINOPHILS % (AUTO) 2.5 % (0-6); HEMATOCRIT 28.6 % (37.9-51.0); HEMOGLOBIN 9.2 g/dL (13.5-17.0); LYMPHOCYTES % (AUTO) 7.1 % (13-45); MEAN CORPUSCULAR HEMOGLOBIN 25.4 pg (27.0-33.4); MEAN CORPUSCULAR HGB CONC 32.1 g/dL (32.0-36.0); MEAN CORPUSCULAR VOLUME 79 fl (80-97); MONOCYTES % (AUTO) 6.2 % (3-13); PLATELET COUNT 157 10^3/uL (150-450); RED BLOOD COUNT 3.61 10^6/uL (4.35-5.55); RED CELL DISTRIBUTION WIDTH 22.6 % (11.5-14.0); SEGMENTED NEUTROPHILS % (AUTO) 83.6 % (42-78); TOTAL CELLS COUNTED % (AUTO) 100 %; WHITE BLOOD COUNT 11.1 10^3/uL (4.0-10.5)
[2019-05-30 05:29] LABS: ANION GAP 15 (5-19); BLOOD UREA NITROGEN 65 mg/dL (7-20); CALCIUM 8.6 mg/dL (8.4-10.2); CARBON DIOXIDE 25 mmol/L (22-30); CHLORIDE 96 mmol/L (98-107); GLUCOSE 130 mg/dL (75-110); POTASSIUM 4.5 mmol/L (3.6-5.0)
[2019-05-30] MEDS: HEPARIN SOD (PORCINE) 5,000 UNIT/ML 1 ML VIAL SUBCUT SCH ×3 (05:46→21:43)
[2019-05-30] MEDS: PANTOPRAZOLE SODIUM 40 MG TABLET.DR PO SCH (05:49)
--- NOTE | 2019-05-30 11:20 | PDOC PROGRESS REPORT ---
Subjective Progress Note for:: 05/30/19 Reason For Visit: Patient seen on dialysis today. Chart review was done. Patient admitted with acute on chronic congestive heart failure/cardiomyopathy with very low ejection fraction at 25%, severe pulmonary hypertension, history of peripheral vascular disease and cellulitis of right lower extremity with sepsis. Patient became oligo anuric with worsening creatinine and has been initiated on hemodialysis. Patient currently undergoing dialysis without any issues. Apparently he had metabolic encephalopathy and he seems to be improving as he is more aware and and more responsive from what I can see from earlier notes. Labs and medications were reviewed. Dialysis orders were reviewed with the treating dialysis nurse. Physical Exam Vital Signs: Temp Pulse Resp BP Pulse Ox 97.9 F 59 L 18 110/67 93 05/30/19 04:30 05/30/19 07:00 05/30/19 04:30 05/30/19 04:30 05/30/19 05:34 Intake & Output 05/29/19 05/30/19 05/31/19 06:59 06:59 06:59 Intake Total 2021 1260 Output Total 1020 125 Balance 1002 1135 Weight 119.7 kg 118.6 kg General appearance: PRESENT: no acute distress Respiratory exam: PRESENT: clear to auscultation torsten, decreased breath sounds. ABSENT: crackles Cardiovascular exam: PRESENT: +S1, +S2 GI/Abdominal exam: PRESENT: ascites, distended, firm, tenderness. ABSENT: guarding, soft Extremities exam: PRESENT: pedal edema Neurological exam: PRESENT: alert Results Laboratory Results: 05/30/19 04:12 05/30/19 04:12 05/28/19 05/30/19 05/30/19 05:00 04:12 04:12 WBC 10.5 11.1 H RBC 3.43 L 3.61 L Hgb 8.8 L 9.2 L Hct 26.9 L 28.6 L MCV 78 L 79 L MCH 25.7 L 25.4 L MCHC 32.7 32.1 RDW 22.7 H 22.6 H Plt Count 153 157 Seg Neutrophils % 84.3 H 83.6 H Retic Count (auto) 1.78 Sodium 135.7 L Potassium 4.5 Chloride 96 L Carbon Dioxide 25 Anion Gap 15 BUN 65 H Creatinine 6.34 H Est GFR ( Amer) 11 L Glucose 130 H Calcium 8.6 0305/12/19 05/13/19 12:00 18:31 00:16 Creatine Kinase CK-MB (CK-2) Troponin I 0.039 0.041 0.039 NT-Pro-B Natriuret Pep 8970 H 05/13/19 05/14/19 05/19/19 09:35 04:26 17:45 Creatine Kinase 230 H CK-MB (CK-2) 4.88 H Troponin I 0.047 NT-Pro-B Natriuret Pep 14279 H Impressions: Renal Artery Duplex 05/20/19 06:00 IMPRESSION: Nondiagnostic study Chest X-Ray 05/20/19 09:58 IMPRESSION: Pulmonary edema pattern KUB X-Ray 05/23/19 00:00 IMPRESSION: NO RADIOGRAPHIC EVIDENCE FOR ACUTE ABDOMINAL DISEASE. Guidance Fluoroscopy 05/29/19 00:00 IMPRESSION: IMAGE(S) OBTAINED DURING PROCEDURE. Assessment & Plan - Diagnosis (1) Acute exacerbation of congestive heart failure Qualifiers: Heart failure type: combined systolic and diastolic Qualified Code(s): I50.43 - Acute on chronic combined systolic (congestive) and diastolic (congestive) heart failure Is this a current diagnosis for this admission?: Yes Plan: Clinically improving. Continue current guidelines. (2) Acute kidney injury superimposed on chronic kidney disease Is this a current diagnosis for this admission?: Yes Plan: Slight patient has most likely reached ESRD status. Patient begun on hemodialysis. Currently being seen on dialysis. Undergoing dialysis well. Plan to remove approximately 1-2 L of fluid. Vital signs are stable. Dialysis orders were reviewed with the treating dialysis nurse. (3) Acute metabolic encephalopathy Is this a current diagnosis for this admission?: Yes Plan: Improving. (4) Anemia Is this a current diagnosis for this admission?: Yes Plan: Chronic kidney disease. Adjust erythropoietin. Monitor. (5) Bipolar disorder Is this a current diagnosis for this admission?: Yes Plan: Currently stable. (6) Cellulitis, leg Qualifiers: Laterality: unspecified laterality Qualified Code(s): L03.119 - Cellulitis of unspecified part of limb Is this a current diagnosis for this admission?: Yes Plan: Improving on antibiotics. (7) Scabies Is this a current diagnosis for this admission?: Yes Plan: As per hospitalist. (8) Stasis dermatitis of both legs Is this a current diagnosis for this admission?: Yes Plan: Stable. Some improvement with dialysis. (9) Peripheral vascular disease Is this a current diagnosis for this admission?: Yes Plan: Status quo. As per hospitalist.
[2019-05-30] MEDS: MINERAL OIL/PETROLATUM,WHITE CREAM 114 GM TP SCH (11:53)
[2019-05-30] MEDS: THIAMINE HCL 100 MG TABLET PO SCH (11:53)
[2019-05-30] MEDS: GABAPENTIN 300 MG CAPSULE PO SCH (11:53)
[2019-05-30] MEDS: NITROGLYCERIN 15 MG (0.6 MG/1 HR) PATCH.TD24 TD SCH (11:53)
[2019-05-30] MEDS: MULTIVITAMIN TABLET PO SCH (11:53)
[2019-05-30] MEDS: VITAMIN B COMPLEX TABLET PO SCH (11:53)
[2019-05-30] MEDS: PAROXETINE HCL 20 MG TABLET PO SCH ×2 (11:53→11:54)
[2019-05-30] MEDS: ASPIRIN 81 MG TABLET, ENT COATED PO SCH (11:53)
[2019-05-30] MEDS: METOPROLOL SUCCINATE 25 MG TAB.SR.24H PO SCH (11:54)
[2019-05-30] MEDS: FLUTICASONE/UMECLIDIN/VILANTER 100-62.5-25 MCG/DOSE IH SCH (11:54)
--- NOTE | 2019-05-30 18:43 | PDOC PROGRESS REPORT ---
Subjective Progress Note for:: 05/30/19 Reason For Visit: HEART FAILURE 05/30/2019 Stage renal disease on hemodialysis, chronic congestive heart failure, cardiomyopathy, metabolic encephalopathy, EMEA of chronic disease, bipolar disorder, chronic venous stasis Physical Exam Vital Signs: Temp Pulse Resp BP Pulse Ox 98.7 F 62 18 89/60 L 93 05/30/19 16:00 05/30/19 16:00 05/30/19 16:00 05/30/19 16:00 05/30/19 16:24 Intake & Output 05/29/19 05/30/19 05/31/19 06:59 06:59 06:59 Intake Total 2021 1260 1000 Output Total 8625 534 6656 Balance 1002 1135 -2000 Weight 119.7 kg 118.6 kg General appearance: PRESENT: no acute distress Respiratory exam: PRESENT: clear to auscultation torsten. ABSENT: rales, rhonchi, wheezes Cardiovascular exam: PRESENT: RRR. ABSENT: diastolic murmur, rubs, systolic murmur Extremities exam: PRESENT: +1 edema, other - Chronic venous stasis Neurological exam: PRESENT: alert, awake, oriented to person, oriented to place, oriented to time, oriented to situation, CN II-XII grossly intact. ABSENT: motor sensory deficit Psychiatric exam: PRESENT: appropriate affect, normal mood. ABSENT: homicidal ideation, suicidal ideation Results Laboratory Results: 05/30/19 04:12 05/30/19 04:12 05/28/19 05/30/19 05/30/19 05:00 04:12 04:12 WBC 10.5 11.1 H RBC 3.43 L 3.61 L Hgb 8.8 L 9.2 L Hct 26.9 L 28.6 L MCV 78 L 79 L MCH 25.7 L 25.4 L MCHC 32.7 32.1 RDW 22.7 H 22.6 H Plt Count 153 157 Seg Neutrophils % 84.3 H 83.6 H Retic Count (auto) 1.78 Sodium 135.7 L Potassium 4.5 Chloride 96 L Carbon Dioxide 25 Anion Gap 15 BUN 65 H Creatinine 6.34 H Est GFR ( Amer) 11 L Glucose 130 H Calcium 8.6 05/12/19 05/12/19 05/13/19 12:00 18:31 00:16 Creatine Kinase CK-MB (CK-2) Troponin I 0.039 0.041 0.039 NT-Pro-B Natriuret Pep 8970 H 05/13/19 05/14/19 05/19/19 09:35 04:26 17:45 Creatine Kinase 230 H CK-MB (CK-2) 4.88 H Troponin I 0.047 NT-Pro-B Natriuret Pep 68694 H Impressions: Renal Artery Duplex 05/20/19 06:00 IMPRESSION: Nondiagnostic study Chest X-Ray 05/20/19 09:58 IMPRESSION: Pulmonary edema pattern KUB X-Ray 05/23/19 00:00 IMPRESSION: NO RADIOGRAPHIC EVIDENCE FOR ACUTE ABDOMINAL DISEASE. Guidance Fluoroscopy 05/29/19 00:00 IMPRESSION: IMAGE(S) OBTAINED DURING PROCEDURE. Assessment and Plan - Diagnosis (1) Acute respiratory failure with hypoxia Is this a current diagnosis for this admission?: Yes (2) Bipolar disorder Is this a current diagnosis for this admission?: Yes (3) Foot ulcer, right Qualifiers: Non-pressure ulcer stage: unspecified non-pressure ulcer stage Qualified Code(s): L97.519 - Non-pressure chronic ulcer of other part of right foot with unspecified severity Is this a current diagnosis for this admission?: Yes (4) Lactic acidosis Is this a current diagnosis for this admission?: Yes (5) Abdominal pain Qualifiers: Abdominal location: epigastric Qualified Code(s): R10.13 - Epigastric pain Is this a current diagnosis for this admission?: Yes (6) Acute combined systolic and diastolic congestive heart failure, NYHA class 4 Is this a current diagnosis for this admission?: Yes (7) Acute renal failure superimposed on stage 3 chronic kidney disease Is this a current diagnosis for this admission?: Yes (8) COPD (chronic obstructive pulmonary disease) Qualifiers: COPD type: COPD with acute exacerbation Qualified Code(s): J44.1 - Chronic obstructive pulmonary disease with (acute) exacerbation Is this a current diagnosis for this admission?: Yes (9) Elevated troponin Is this a current diagnosis for this admission?: Yes (10) Hypertension Qualifiers: Hypertension type: essential hypertension Qualified Code(s): I10 - Essential (primary) hypertension Is this a current diagnosis for this admission?: Yes (11) Venous stasis Is this a current diagnosis for this admission?: Yes - Plan Summary Summary: Palliative care consulted given patient's multiple comorbidities and overall poor functional state. 05/30/2019 Patient completed his dialysis today unfortunately he was not able to be transferred to assisted facility because he was rejected at [facility] Patient has also been rejected at [facility] Patient will need dialysis once discharged from the hospital Today's BUN is 65 creatinine 6.34 Calcium 8.6 Cultures have showed no growth in 5 days Wound culture from right foot grew out staph aureus but this is been 18 days ago Patient is currently on no antibiotics Patient had a right permacath placed on 05/29/2019 - Time Time Spent with patient: 35 or more minutes
[2019-05-30] MEDS: QUETIAPINE FUMARATE 300 MG PO SCH (21:44)
--- NOTE | 2019-05-30 21:44 | Progress Note ---
Provider Note Provider Note: Cardiology PROGRESS NOTE by Dr. Radha Lara on 05/30/2019. SUBJECTIVE: The patient denies any chest pain or discomfort. There is no shortness of breath at rest. The patient is able to lie down flat with no PND orthopnea. There is no arrhythmia seen on the monitor. There is no leg edema. There is no arrhythmia seen on the monitor. There is no TIA CVA symptoms. The patient had an uneventful permacath placed in his right chest. PHYSICAL EXAMINATION: The patient appears to be chronically ill. He is in no acute distress. Selected Entries 05/30/19 11:28 Temperature 98.6 F Temperature Axillary Source Pulse Rate 63 Respiratory 17 Rate Blood Pressure 94/59 L Blood Pressure 70 Mean BP Location Right Arm BP Position Supine O2 Sat by Pulse 92 Oximetry Oxygen Flow 5.00 Rate Oxygen Delivery Nasal Cannula Method HEAD: Head is atraumatic normocephalic. Eyes: Pupils are equal round regular reactive light accommodation extraocular movements are normal there is no congenital pallor there is no scleral icterus. Ears: External auditory canals are clear, there are no lesions of the pinna. Nose: No deviated nasal septum and no inflammation of the nasal mucous membrane. Mouth: Mucous membranes of mouth are moist tongue is moist there is no ulcers there is no bleeding from the gums. Throat: There is no redness of the oropharynx there is no exudates. Skin: There is no petechia or ecchymosis there is no skin lesions or skin rashes. Neck: Neck is supple there is JVD present. Carotids equal there is no bruit there is no lymphadenopathy there is no neck stiffness. There is no goiter trachea central lungs: Lungs show diminished air entry and prolonged expiration. Scattered rhonchi and wheezing present. There is no no bibasilar rales of CHF. Few dry crackles in the right base. There is no chest wall tenderness. HEART: S1-S2 is heard there is no S3 gallop there is no S4 gallop S1 is of normal intensity. There is no rub. The systolic murmur of MR and TR. There is no prosthetic valve clicks heard. Abdomen: Abdomen is soft, mildly distended, no definite ascites. There is no hepatosplenomegaly. Bowel sounds well heard there is no tender areas of masses. There is no rebound guarding or rigidity. Extremities: Femorals are slightly diminished, there is no bruits. Leg pulses are diminished. There is trace 2- edema, with venous stasis dermatitis. There is no DVT or cellulitis there is no cyanosis or clubbing there is no DVT or cellulitis. There is no calf tenderness. DIGITAL STRATEGY SPECIALIST: The patient is awake alert oriented 3 with no focal deficits. But in spite of this he has slow mentation. Psychiatric: The patient judgment and insight are intact and his affect is flat. The patient's 24-hour intake is 1260 mL and total 24-hour output is 125 ml. Labs- All tests 24 hr 05/28/19 05/30/19 05/30/19 05:00 04:12 04:12 WBC 10.5 11.1 H RBC 3.43 L 3.61 L Hgb 8.8 L 9.2 L Hct 26.9 L 28.6 L MCV 78 L 79 L MCH 25.7 L 25.4 L MCHC 32.7 32.1 RDW 22.7 H 22.6 H Plt Count 153 157 Lymph % (Auto) 6.2 L 7.1 L [place] % (Auto) 6.1 6.2 Eos % (Auto) 2.7 2.5 Baso % (Auto) 0.7 0.6 Reticulocyte # 0.061 Absolute Neuts (auto) 8.9 H 9.3 H Absolute Lymphs (auto) 0.6 0.8 Absolute Monos (auto) 0.6 0.7 Absolute Eos (auto) 0.3 0.3 Absolute Basos (auto) 0.1 0.1 Seg Neutrophils % 84.3 H 83.6 H Retic Count (auto) 1.78 Sodium 135.7 L Potassium 4.5 Chloride 96 L Carbon Dioxide 25 Anion Gap 15 BUN 65 H Creatinine 6.34 H Est GFR ( Amer) 11 L Est GFR (MDRD) Non-Af 9 L Glucose 130 H Calcium 8.6 iMPRESSION/RECOMMENDATION: 1. Acute respiratory failure secondary to combination of acute on chronic systolic heart failure, acute renal failure causing volume overload, acute exacerbation of COPD, and severe pulmonary hypertension. Continue BiPAP and oxygen support. 2. Acute on chronic systolic heart failure. Patient has been placed on fluid restriction of 1500 mL each 24 hours. The patient is off inotropes and IV nitroglycerin. He is on topical nitrates and hydralazine. His Entresto has been stopped, but still the patient renal function is deteriorating.. His renal artery Dopplers for renal artery stenosis remains negative albeit poor quality study. 3. Acute exacerbation COPD: Consider antibiotics. Continue respiratory treatments. This is improved. Will decrease the patient's dobutamine to 2.5 mcg/kg/min and subsequently discontinue the dobutamine since it is not really helping the patient. 4. Hypertension: At present blood pressure reasonable. 5. Severe pulmonary hypertension: The dobutamine the IV nitroglycerin and hydralazine should help. Later we will see the feasibility of starting sildenafil. 6. Acute on chronic renal failure. Avoid nephrotoxic drugs. The patient has been started on dialysis, in spite of this patient's renal function is deteriorating. The patient is now dialysis dependent and has reached end-stage renal disease. 7. Bipolar disorder 8. Tobacco abuse disorder. 9 coronary artery disease: History of coronary bypass graft surgery: No angina and troponin so far is not elevated. 10. Peripheral vascular disease: This will be addressed later on. 11. History of valvular repair: Details not available. Try to contact [facility] but they say they have not heard of the patient, and have no records on him. 12. Severe hearing loss: 13. Scabies. Medications reviewed. Medical regimen and management plan discussed with attending physician. Discussed with nephrology. Medical decision making is of moderate complexity. 40 minutes spent as patient more than 50% time spent in direct patient care. Will follow.
[2019-05-30] MEDS: QUETIAPINE FUMARATE 150 MG PO SCH (21:47)
[2019-05-31] MEDS: METOPROLOL SUCCINATE 25 MG TAB.SR.24H PO SCH ×3 (00:09→23:04)
[2019-05-31] MEDS: HYDRALAZINE HCL 50 MG TABLET PO SCH ×5 (00:16→23:03)
[2019-05-31] MEDS: HEPARIN SOD (PORCINE) 5,000 UNIT/ML 1 ML VIAL SUBCUT SCH ×3 (06:33→23:04)
[2019-05-31] MEDS: PANTOPRAZOLE SODIUM 40 MG TABLET.DR PO SCH (06:33)
--- NOTE | 2019-05-31 09:58 | PDOC PROGRESS REPORT ---
Subjective Progress Note for:: 05/31/19 Reason For Visit: HEART FAILURE 05/31/2019 Congestive heart failure end-stage renal disease on hemodialysis anemia of chronic disease, bipolar, chronic venous stasis encephalopathy Physical Exam Vital Signs: Temp Pulse Resp BP Pulse Ox 97.8 F 62 21 H 126/55 H 92 05/31/19 08:26 05/31/19 08:26 05/31/19 08:26 05/31/19 08:26 05/31/19 08:35 Intake & Output 05/30/19 05/31/19 06/01/19 06:59 06:59 06:59 Intake Total 1260 2500 Output Total 125 3220 Balance 1135 -720 Weight 118.6 kg 120.8 kg General appearance: PRESENT: no acute distress Respiratory exam: PRESENT: clear to auscultation torsten. ABSENT: rales, rhonchi, wheezes Cardiovascular exam: PRESENT: RRR. ABSENT: diastolic murmur, rubs, systolic murmur Neurological exam: PRESENT: alert, awake, oriented to person, oriented to place, oriented to time, oriented to situation, CN II-XII grossly intact. ABSENT: motor sensory deficit Psychiatric exam: PRESENT: appropriate affect, normal mood. ABSENT: homicidal ideation, suicidal ideation Results Laboratory Results: 05/30/19 04:12 05/30/19 04:12 05/12/19 05/12/19 05/13/19 12:00 18:31 00:16 Creatine Kinase CK-MB (CK-2) Troponin I 0.039 0.041 0.039 NT-Pro-B Natriuret Pep 8970 H 05/13/19 05/14/19 05/19/19 09:35 04:26 17:45 Creatine Kinase 230 H CK-MB (CK-2) 4.88 H Troponin I 0.047 NT-Pro-B Natriuret Pep 10323 H Impressions: Renal Artery Duplex 05/20/19 06:00 IMPRESSION: Nondiagnostic study Chest X-Ray 05/20/19 09:58 IMPRESSION: Pulmonary edema pattern KUB X-Ray 05/23/19 00:00 IMPRESSION: NO RADIOGRAPHIC EVIDENCE FOR ACUTE ABDOMINAL DISEASE. Guidance Fluoroscopy 05/29/19 00:00 IMPRESSION: IMAGE(S) OBTAINED DURING PROCEDURE. Assessment and Plan - Diagnosis (1) Acute respiratory failure with hypoxia Is this a current diagnosis for this admission?: Yes (2) Bipolar disorder Is this a current diagnosis for this admission?: Yes (3) Foot ulcer, right Qualifiers: Non-pressure ulcer stage: unspecified non-pressure ulcer stage Qualified Code(s): L97.519 - Non-pressure chronic ulcer of other part of right foot with unspecified severity Is this a current diagnosis for this admission?: Yes (4) Lactic acidosis Is this a current diagnosis for this admission?: Yes (5) Abdominal pain Qualifiers: Abdominal location: epigastric Qualified Code(s): R10.13 - Epigastric pain Is this a current diagnosis for this admission?: Yes (6) Acute combined systolic and diastolic congestive heart failure, NYHA class 4 Is this a current diagnosis for this admission?: Yes (7) Acute renal failure superimposed on stage 3 chronic kidney disease Is this a current diagnosis for this admission?: Yes (8) COPD (chronic obstructive pulmonary disease) Qualifiers: COPD type: COPD with acute exacerbation Qualified Code(s): J44.1 - Chronic obstructive pulmonary disease with (acute) exacerbation Is this a current diagnosis for this admission?: Yes (9) Elevated troponin Is this a current diagnosis for this admission?: Yes (10) Hypertension Qualifiers: Hypertension type: essential hypertension Qualified Code(s): I10 - Essential (primary) hypertension Is this a current diagnosis for this admission?: Yes (11) Venous stasis Is this a current diagnosis for this admission?: Yes - Plan Summary Summary: Palliative care consulted given patient's multiple comorbidities and overall poor functional state. 05/30/2019 Patient completed his dialysis today unfortunately he was not able to be transferred to snf facility because he was rejected at [facility] Patient has also been rejected at [facility] Patient will need dialysis once discharged from the hospital Today's BUN is 65 creatinine 6.34 Calcium 8.6 Cultures have showed no growth in 5 days Wound culture from right foot grew out staph aureus but this is been 18 days ago Patient is currently on no antibiotics Patient had a right permacath placed on 05/29/2019 05/31/2019 Sleeping but arouses easily Hemodynamically stable temperature 97.8 pulse 62, blood pressure 126/55, Patient's oxygen saturations are in the mid 90s but requires 5 L of nasal cannula. FiO2 of 40% Try to wean patient down to 3 L. If we cannot do this successfully I will repeat a blood gas Patient did receive hemodialysis yesterday Patient waiting correction placement - Time Time Spent with patient: 15-24 minutes
[2019-05-31] MEDS: ASPIRIN 81 MG TABLET, ENT COATED PO SCH (10:01)
[2019-05-31] MEDS: VITAMIN B COMPLEX TABLET PO SCH (10:01)
[2019-05-31] MEDS: MULTIVITAMIN TABLET PO SCH (10:01)
[2019-05-31] MEDS: THIAMINE HCL 100 MG TABLET PO SCH (10:01)
[2019-05-31] MEDS: MINERAL OIL/PETROLATUM,WHITE CREAM 114 GM TP SCH (10:02)
[2019-05-31] MEDS: GABAPENTIN 300 MG CAPSULE PO SCH (10:02)
[2019-05-31] MEDS: PAROXETINE HCL 20 MG TABLET PO SCH ×2 (10:02)
[2019-05-31] MEDS: NITROGLYCERIN 15 MG (0.6 MG/1 HR) PATCH.TD24 TD SCH (10:02)
[2019-05-31] MEDS: FLUTICASONE/UMECLIDIN/VILANTER 100-62.5-25 MCG/DOSE IH SCH (10:08)
--- NOTE | 2019-05-31 13:55 | PDOC CONSULTATION ---
Consultation Consult Date: 05/31/19 Attending physician:: VELASQUEZ HIRSCH Provider Consulted: SHERINE JAIME Consult reason:: Dyspnea History of Present Illness Admission Date/PCP: 05/12/19 14:02 LISSETTE CASTRO MD History of Present Illness: JUJU ANDRADE is a 58 year old male admitted to the emergency room from the emergency room after 3 days of increasing shortness of breath and abdominal distention he has multiple multiple medical problems which include COPD uncontrolled hypertension congestive heart failure and coronary artery disease. Upon presentation he was hypoxic tachypneic but afebrile there is no history of chronic lung disease as a child or adolescent missed exposure to passive smoke as a child as well as an adult he is self smoked a significant occupational history could be old sleeps on 2 pillows frequent PND frequent nocturnal cough frequent edema unaware of any snoring restless sleep nocturia 3-4 times per night unrestful sleep and excessive daytime Past Medical History Cardiac Medical History: Reports: Congestive Heart Failure, Coronary Artery Disease, Hyperlipidema, Hypertension Pulmonary Medical History: Reports: Chronic Obstructive Pulmonary Disease (COPD), Respiratory Failure EENT Medical History: Reports: None Neurological Medical History: Reports: None Endocrine Medical History: Reports: Obesity Renal/ Medical History: Reports: Chronic Kidney Disease GI Medical History: Reports: Gastroesophageal Reflux Disease Musculoskeltal Medical History: Reports: Arthritis Skin Medical History: Reports: None Psychiatric Medical History: Reports: Bipolar Disorder Traumatic Medical History: Reports: None Hematology: Reports: None Infectious Medical History: Reports: None Past Surgical History Past Surgical History: Reports: Coronary Artery Bypass Graft, Valve Replacement Social History Information Source: [facility] Records Lives with: Alone Smoking Status: Current Every Day Smoker Cigarettes Packs Per Day: 1 Last Time Smoked: 45 Passive smoke exposure as: Both Frequency of Alcohol Use: None Hx Recreational Drug Use: No Hx Prescription Drug Abuse: No Do you have pets?: No Have you had any respiratory illnesses as a child?: No Have you been exposed to any sick contacts recently?: No Have you had any recent respiratory illnesses?: No Have you travelled outside of [place] in the past 12 months?: No - Advance Directive Resuscitation Status: Full Code Family History Family History: Reviewed & Not Pertinent Medication/Allergy Home Medications: Albuterol Sulfate [Ventolin Hfa 8 gm Mdi] 2 puff IH Q6HP PRN 04/30/19 Furosemide [Lasix 40 mg Tablet] 40 mg PO BID 04/30/19 Omeprazole Magnesium [Prilosec Otc] 40 mg PO DAILY 04/30/19 Paroxetine HCl [Paxil] 10 mg PO DAILY 04/30/19 Quetiapine Fumarate [Quetiapine Fumarate ER] 300 mg PO QPM 04/30/19 Ranitidine HCl [Heartburn Relief] 150 mg PO BID 04/30/19 Rivaroxaban [Xarelto] 2.5 mg PO Q12 04/30/19 Sacubitril/Valsartan [Entresto 24 mg/26 mg Tablet] 1 tab PO Q12 04/30/19 Thiamine HCl [Thiamine 100 mg Tablet] 100 mg PO DAILY 04/30/19 Hydroxyzine Pamoate [Vistaril 25 mg Capsule] 25 mg PO QHS 05/12/19 Multivitamin/Iron/Folic Acid [Centrum Adults Tablet] 1 each PO DAILY 05/12/19 Paroxetine HCl [Paxil] 40 mg PO DAILY 05/12/19 Quetiapine Fumarate [Seroquel Xr] 150 mg PO QPM 05/12/19 Vitamin B Complex/Folic Acid [B-Complex Tablet] 1 tab PO DAILY 05/12/19 Allergies/Adverse Reactions: risperidone [From Risperdal] Allergy (Verified 04/30/19 12:35) trazodone Allergy (Verified 04/30/19 12:35) Review of Systems All systems: reviewed and no additional remarkable complaints except as stated Physical Exam Vital Signs: Temp Pulse Resp BP Pulse Ox 97.3 F 63 20 116/53 L 91 L 05/31/19 11:12 05/31/19 11:12 05/31/19 11:12 05/31/19 11:12 05/31/19 11:12 Intake & Output 05/30/19 05/31/19 06/01/19 06:59 06:59 06:59 Intake Total 1260 2500 Output Total 125 3220 Balance 1135 -720 Weight 118.6 kg 120.8 kg General appearance: PRESENT: no acute distress, disheveled, well-developed, well-nourished. ABSENT: cooperative Head exam: PRESENT: atraumatic, normocephalic Eye exam: PRESENT: conjunctiva pale, EOMI. ABSENT: nystagmus, periorbital swelling, scleral icterus Mouth exam: PRESENT: dry mucosa, neck supple, tongue midline Neck exam: ABSENT: carotid bruit, full ROM, JVD, lymphadenopathy, meningismus, tenderness, thyromegaly, tracheal deviation, tracheostomy, other Respiratory exam: PRESENT: decreased breath sounds, prolonged expiratory phas, rhonchi, symmetrical, unlabored. ABSENT: retraction, stridor, tachypnea Cardiovascular exam: PRESENT: RRR, +S1, +S2 Pulses: PRESENT: normal radial pulses GI/Abdominal exam: PRESENT: soft. ABSENT: guarding, mass, rebound, tenderness Extremities exam: ABSENT: calf tenderness, clubbing, joint swelling Musculoskeletal exam: ABSENT: deformity, dislocation Neurological exam: PRESENT: altered, awake Psychiatric exam: PRESENT: flat affect Skin exam: PRESENT: dry, warm Results Laboratory Results: 05/30/19 04:12 05/30/19 04:12 05/12/19 05/12/19 05/13/19 12:00 18:31 00:16 Creatine Kinase CK-MB (CK-2) Troponin I 0.039 0.041 0.039 NT-Pro-B Natriuret Pep 8970 H 05/13/19 05/14/19 05/19/19 09:35 04:26 17:45 Creatine Kinase 230 H CK-MB (CK-2) 4.88 H Troponin I 0.047 NT-Pro-B Natriuret Pep 64681 H Impressions: Renal Artery Duplex 05/20/19 06:00 IMPRESSION: Nondiagnostic study Chest X-Ray 05/20/19 09:58 IMPRESSION: Pulmonary edema pattern KUB X-Ray 05/23/19 00:00 IMPRESSION: NO RADIOGRAPHIC EVIDENCE FOR ACUTE ABDOMINAL DISEASE. Guidance Fluoroscopy 05/29/19 00:00 IMPRESSION: IMAGE(S) OBTAINED DURING PROCEDURE. Assessment & Plan - Diagnosis (1) Pulmonary hypertension Is this a current diagnosis for this admission?: Yes Plan: The indicated right heart catheterization (2) Acute combined systolic and diastolic congestive heart failure, NYHA class 4 Is this a current diagnosis for this admission?: Yes Plan: Excellent fraction 25% (3) Acute on chronic renal failure Qualifiers: Acute renal failure type: with acute tubular necrosis Chronic kidney disease stage: stage 3 (moderate) Qualified Code(s): N17.0 - Acute kidney failure with tubular necrosis; N18.3 - Chronic kidney disease, stage 3 (moderate) Is this a current diagnosis for this admission?: Yes Plan: Labs- All tests 24 hr 05/24/19 05/25/19 05/26/19 06:05 05:20 05:10 BUN 74 H 91 H 102 H Creatinine 3.73 H 5.01 H 6.58 H 05/27/19 05/28/19 05/30/19 04:29 05:33 04:12 BUN 68 H D 83 H 65 H Creatinine 5.19 H 6.99 H 6.34 H Weight 117 kg at admission currently 120 kg (4) COPD (chronic obstructive pulmonary disease) Qualifiers: COPD type: COPD with acute exacerbation Qualified Code(s): J44.1 - Chronic obstructive pulmonary disease with (acute) exacerbation Is this a current diagnosis for this admission?: Yes Plan: Generic Name Dose Route Start Last Admin Trade Name Freq PRN Reason Stop Dose Admin Fluticasone/Vilanterol 1 inh 05/15/19 10:00 05/31/19 10:08 Trelegy 100-62.5-25 Mcg Ellipta 14 Dose/Dpi IH 06/14/19 09:59 1 puff DAILY TORRES Patient as noncompliant this is probably the best choice - Time Time Spent with patient: 55
--- NOTE | 2019-05-31 14:59 | Progress Note ---
Provider Note Provider Note: Cardiology PROGRESS NOTE by Dr. Radha Lara on 05/31/2019. SUBJECTIVE: The patient denies any chest pain or discomfort. There is no shortness of breath at rest. The patient is able to lie down flat with no PND orthopnea. There is no arrhythmia seen on the monitor. There is no leg edema. There is no arrhythmia seen on the monitor. There is no TIA CVA symptoms. The patient had an uneventful permacath placed in his right chest. PHYSICAL EXAMINATION: The patient appears to be chronically ill. He is in no acute distress. Selected Entries 05/31/19 05/31/19 11:12 12:00 Temperature 97.3 F Temperature Axillary Source Pulse Rate 63 Respiratory 20 Rate Blood Pressure 116/53 L Blood Pressure 74 Mean BP Location Left Arm BP Position Supine O2 Sat by Pulse 91 L Oximetry Oxygen Flow 4 Rate Oxygen Delivery Nasal Cannula Method O2 Sat by Pulse 94 Oximetry by Telemetry HEAD: Head is atraumatic normocephalic. Eyes: Pupils are equal round regular reactive light accommodation extraocular movements are normal there is no congenital pallor there is no scleral icterus. Ears: External auditory canals are clear, there are no lesions of the pinna. Nose: No deviated nasal septum and no inflammation of the nasal mucous membrane. Mouth: Mucous membranes of mouth are moist tongue is moist there is no ulcers there is no bleeding from the gums. Throat: There is no redness of the oropharynx there is no exudates. Skin: There is no petechia or ecchymosis there is no skin lesions or skin rashes. Neck: Neck is supple there is JVD present. Carotids equal there is no bruit there is no lymphadenopathy there is no neck stiffness. There is no goiter trachea central lungs: Lungs show diminished air entry and prolonged expiration. Scattered rhonchi and wheezing present. There is no no bibasilar r ales of CHF. Few dry crackles in the right base. There is no chest wall tenderness. HEART: S1-S2 is heard there is no S3 gallop there is no S4 gallop S1 is of normal intensity. There is no rub. The systolic murmur of MR and TR. There is no prosthetic valve clicks heard. Abdomen: Abdomen is soft, mildly distended, no definite ascites. There is no hepatosplenomegaly. Bowel sounds well heard there is no tender areas of masses. There is no rebound guarding or rigidity. Extremities: Femorals are slightly diminished, there is no bruits. Leg pulses are diminished. There is trace 2- edema, with venous stasis dermatitis. There is no DVT or cellulitis there is no cyanosis or clubbing there is no DVT or cellulitis. There is no calf tenderness. RESIDENTIAL MANAGER: The patient is awake alert oriented 3 with no focal deficits. But in spite of this he has slow mentation. Psychiatric: The patient judgment and insight are intact and his affect is flat. The patient's 24-hour intake is 2500 mL and total 24-hour output is 3220 ml. Chest X-Ray 05/12/19 11:53 IMPRESSION: No acute cardiopulmonary process. Chest X-Ray 05/14/19 00:00 IMPRESSION: No acute cardiopulmonary process. Chest X-Ray 05/15/19 15:34 IMPRESSION: Right jugular central line tip SVC. No Pneumothorax Renal Artery Duplex 05/20/19 06:00 IMPRESSION: Nondiagnostic study Chest X-Ray 05/20/19 09:58 IMPRESSION: Pulmonary edema pattern KUB X-Ray 05/23/19 00:00 IMPRESSION: NO RADIOGRAPHIC EVIDENCE FOR ACUTE ABDOMINAL DISEASE. Guidance Fluoroscopy 05/29/19 00:00 IMPRESSION: IMAGE(S) OBTAINED DURING PROCEDURE. iMPRESSION/RECOMMENDATION: 1. Acute respiratory failure secondary to combination of acute on chronic systolic heart failure, acute renal failure causing volume overload, acute ex acerbation of COPD, and severe pulmonary hypertension. Continue BiPAP and oxygen support. 2. Acute on chronic systolic heart failure. Patient has been placed on fluid restriction of 1500 mL each 24 hours. The patient is off inotropes and IV nitroglycerin. He is on topical nitrates and hydralazine. His Entresto has been stopped, but still the patient renal function is deteriorating.. His renal artery Dopplers for renal artery stenosis remains negative albeit poor quality study. 3. Acute exacerbation COPD: Consider antibiotics. Continue respiratory treatments. This is improved. Will decrease the patient's dobutamine to 2.5 mcg/kg/min and subsequently discontinue the dobutamine since it is not really helping the patient. 4. Hypertension: At present blood pressure reasonable. 5. Severe pulmonary hypertension: The dobutamine the IV nitroglycerin and hydralazine should help. Later we will see the feasibility of starting sildenafil. 6. Acute on chronic renal failure. Avoid nephrotoxic drugs. The patient has been started on dialysis, in spite of this patient's renal function is deteriorating. The patient is now dialysis dependent and has reached end-stage renal disease. 7. Bipolar disorder 8. Tobacco abuse disorder. 9 coronary artery disease: History of coronary bypass graft surgery: No angina and troponin so far is not elevated. 10. Peripheral vascular disease: This will be addressed later on. 11. History of valvular repair: Details not available. Try to contact [facility] but they say they have not heard of the patient, and have no records on him. 12. Severe hearing loss: 13. Scabies. Medications reviewed. Medical regimen and management plan discussed with attending physician. Discussed with nephrology. Medical decision making is of moderate complexity. 40 minutes spent as patient more than 50% time spent in direct patient care. Will follow.
[2019-05-31] MEDS: QUETIAPINE FUMARATE 300 MG PO SCH (22:57)
[2019-05-31] MEDS: QUETIAPINE FUMARATE 150 MG PO SCH (23:05)
[2019-05-31] MEDS: ACETAMINOPHEN 325 MG TABLET PO PRN (23:15)
[2019-06-01 06:49] LABS: ARTERIAL BLOOD BASE EXCESS -1.3 mmol/L; ARTERIAL BLOOD H2CO3 1.14 mmol/L (1.05-1.35); ARTERIAL BLOOD HCO3 23.2 mmol/L (20-24); ARTERIAL BLOOD O2 SATURATION 94.9 % (94-98); ARTERIAL BLOOD PCO2 37.9 mmHg (35-45); ARTERIAL BLOOD PH 7.41 (7.35-7.45); ARTERIAL BLOOD PO2 73.3 mmHg (80-100); ARTERIAL BLOOD TOTAL CO2 24.4 mmol/L (23-27)
[2019-06-01] MEDS: HYDRALAZINE HCL 50 MG TABLET PO SCH ×3 (07:02→17:17)
[2019-06-01] MEDS: HEPARIN SOD (PORCINE) 5,000 UNIT/ML 1 ML VIAL SUBCUT SCH ×3 (07:04→21:23)
[2019-06-01] MEDS: PANTOPRAZOLE SODIUM 40 MG TABLET.DR PO SCH (07:05)
--- NOTE | 2019-06-01 10:10 | PDOC PROGRESS REPORT ---
Subjective Progress Note for:: 06/01/19 Reason For Visit: HEART FAILURE 06/01/2019 End-stage renal disease on hemodialysis, congestive heart failure, anemia of chronic disease, bipolar, chronic venous stasis, encephalopathy, scabies Physical Exam Vital Signs: Temp Pulse Resp BP Pulse Ox 98.2 F 58 L 20 127/41 H 92 06/01/19 08:14 06/01/19 08:14 06/01/19 08:14 06/01/19 08:14 06/01/19 08:14 Pulse Oximeter Continuous Start: 05/31/19 13:23 Freq: RTQ4 Status: Active Protocol: Document 06/01/19 08:00 [facility] (Rec: 06/01/19 09:21 [facility] [email or web address]) Pulse Oximetry Assessment Oxygen Saturation (92-100) 96 Oxygen Flow Rate (L/min) 3 Oxygen Delivery Method Nasal Cannula Fraction of Inspired Oxygen (FIO2) 32 Equipment Usage Equipment in Use Continuous SpO2 Machine # 1 Intake & Output 05/31/19 06/01/19 06/02/19 06:59 06:59 06:59 Intake Total 2500 2227 Output Total 3220 370 Balance -720 1857 Weight 120.8 kg 120.2 kg Results Laboratory Results: 05/30/19 04:12 05/30/19 04:12 06/01/19 06:25 Carbonic Acid 1.14 HCO3/H2CO3 Ratio 20:1 ABG pH 7.41 ABG pCO2 37.9 ABG pO2 73.3 L ABG HCO3 23.2 ABG O2 Saturation 94.9 ABG Base Excess -1.3 FiO2 31% 05/12/19 05/12/19 05/13/19 12:00 18:31 00:16 Creatine Kinase CK-MB (CK-2) Troponin I 0.039 0.041 0.039 NT-Pro-B Natriuret Pep 8970 H 05/13/19 05/14/19 05/19/19 09:35 04:26 17:45 Creatine Kinase 230 H CK-MB (CK-2) 4.88 H Troponin I 0.047 NT-Pro-B Natriuret Pep 99525 H Impressions: Renal Artery Duplex 05/20/19 06:00 IMPRESSION: Nondiagnostic study Chest X-Ray 05/20/19 09:58 IMPRESSION: Pulmonary edema pattern KUB X-Ray 05/23/19 00:00 IMPRESSION: NO RADIOGRAPHIC EVIDENCE FOR ACUTE ABDOMINAL DISEASE. Guidance Fluoroscopy 05/29/19 00:00 IMPRESSION: IMAGE(S) OBTAINED DURING PROCEDURE. Assessment and Plan - Diagnosis (1) Acute respiratory failure with hypoxia Is this a current diagnosis for this admission?: Yes (2) Bipolar disorder Is this a current diagnosis for this admission?: Yes (3) Foot ulcer, right Qualifiers: Non-pressure ulcer stage: unspecified non-pressure ulcer stage Qualified Code(s): L97.519 - Non-pressure chronic ulcer of other part of right foot with unspecified severity Is this a current diagnosis for this admission?: Yes (4) Lactic acidosis Is this a current diagnosis for this admission?: Yes (5) Abdominal pain Qualifiers: Abdominal location: epigastric Qualified Code(s): R10.13 - Epigastric pain Is this a current diagnosis for this admission?: Yes (6) Acute combined systolic and diastolic congestive heart failure, NYHA class 4 Is this a current diagnosis for this admission?: Yes (7) Acute renal failure superimposed on stage 3 chronic kidney disease Is this a current diagnosis for this admission?: Yes (8) COPD (chronic obstructive pulmonary disease) Qualifiers: COPD type: COPD with acute exacerbation Qualified Code(s): J44.1 - Chronic obstructive pulmonary disease with (acute) exacerbation Is this a current diagnosis for this admission?: Yes (9) Elevated troponin Is this a current diagnosis for this admission?: Yes (10) Hypertension Qualifiers: Hypertension type: essential hypertension Qualified Code(s): I10 - Essential (primary) hypertension Is this a current diagnosis for this admission?: Yes (11) Venous stasis Is this a current diagnosis for this admission?: Yes (12) Scabies Is this a current diagnosis for this admission?: Yes - Plan Summary Summary: Palliative care consulted given patient's multiple comorbidities and overall poor functional state. 05/30/2019 Patient completed his dialysis today unfortunately he was not able to be transferred to shelter facility because he was rejected at [facility] Patient has also been rejected at [place] Patient will need dialysis once discharged from the hospital Today's BUN is 65 creatinine 6.34 Calcium 8.6 Cultures have showed no growth in 5 days Wound culture from right foot grew out staph aureus but this is been 18 days ago Patient is currently on no antibiotics Patient had a right permacath placed on 05/29/2019 05/31/2019 Sleeping but arouses easily Hemodynamically stable temperature 97.8 pulse 62, blood pressure 126/55, Patient's oxygen saturations are in the mid 90s but requires 5 L of nasal cannula. FiO2 of 40% Try to wean patient down to 3 L. If we cannot do this successfully I will repeat a blood gas Patient did receive hemodialysis yesterday Patient waiting longterm placement 06/01/2019 Patient is very much awake and alert and conversant. Oriented. Patient tells me this morning that he wants to go to a rehab unit when he is discharge. He shows me a brochure from [facility] Patient's vital signs are extremely stable. Will however need oxygen at 2-3 L at the time of discharge He will need no antibiotics at time of discharge. Patient will need to continue dialysis per nephrology's suggestions Patient's white count is down to 11,000, recent arterial blood gas is basically normal, last set of blood cultures were negative x5 days Patient is stable for discharge to facility - Time Time Spent with patient: 25-34 minutes
[2019-06-01] MEDS: METOPROLOL SUCCINATE 25 MG TAB.SR.24H PO SCH ×2 (11:12→21:23)
[2019-06-01] MEDS: MULTIVITAMIN TABLET PO SCH (11:12)
[2019-06-01] MEDS: ASPIRIN 81 MG TABLET, ENT COATED PO SCH (11:12)
[2019-06-01] MEDS: VITAMIN B COMPLEX TABLET PO SCH (11:12)
[2019-06-01] MEDS: THIAMINE HCL 100 MG TABLET PO SCH (11:12)
[2019-06-01] MEDS: GABAPENTIN 300 MG CAPSULE PO SCH (11:12)
[2019-06-01] MEDS: MINERAL OIL/PETROLATUM,WHITE CREAM 114 GM TP SCH (11:13)
[2019-06-01] MEDS: FLUTICASONE/UMECLIDIN/VILANTER 100-62.5-25 MCG/DOSE IH SCH (11:13)
[2019-06-01] MEDS: PAROXETINE HCL 20 MG TABLET PO SCH ×2 (11:13)
[2019-06-01] MEDS: NITROGLYCERIN 15 MG (0.6 MG/1 HR) PATCH.TD24 TD SCH (11:13)
--- NOTE | 2019-06-01 14:05 | Progress Note ---
Provider Note Provider Note: CARDIOLOGY PROGRESS NOTE by Dr. Radha Lara on 06/01/2019. SUBJECTIVE: The patient denies any chest pain or discomfort. There is no shortness of breath. There is no PND orthopnea. He had his permacath placed and is going to be getting dialysis as per schedule. There is no arrhythmia seen on the monitor. There is no complaints of chest pain or shortness of breath or PND orthopnea. Patient awaiting for placement for rehab facility. PHYSICAL EXAMINATION: The patient appears to be chronically ill . In no acute distress. Selected Entries 06/01/19 12:20 Temperature 97.4 F Temperature Axillary Source Pulse Rate 59 L Respiratory 20 Rate Blood Pressure 111/46 L Blood Pressure 67 Mean BP Location Left Arm BP Position Sitting O2 Sat by Pulse 96 Oximetry Oxygen Flow 3.00 Rate Oxygen Delivery Nasal Cannula Method HEAD: Head is atraumatic normocephalic. Eyes: Pupils are equal round regular reactive light accommodation extraocular movements are normal there is no congenital pallor there is no scleral icterus. Ears: External auditory canals are clear, there are no lesions of the pinna. Nose: No deviated nasal septum and no inflammation of the nasal mucous membrane. Mouth: Mucous membranes of mouth are moist tongue is moist there is no ulcers there is no bleeding from the gums. Throat: There is no redness of the oropharynx there is no exudates. Skin: There is no petechia or ecchymosis there is no skin lesions or skin rashes. Neck: Neck is supple there is JVD present. Carotids equal there is no bruit there is no lymphadenopathy there is no neck stiffness. There is no goiter trachea central lungs: Lungs show diminished air entry and prolonged expiration. Scattered rhonchi and wheezing present. There is no no bibasilar rales of CHF. Few dry crackles in the right base. There is no chest wall tenderness. HEART: S1-S2 is heard there is no S3 gallop there is no S4 gallop S1 is of normal intensity. There is no rub. The systolic murmur of MR and TR. There is no prosthetic valve clicks heard. Abdomen: Abdomen is soft, mildly distended, no definite ascites. There is no hepatosplenomegaly. Bowel sounds well heard there is no tender areas of masses. There is no rebound guarding or rigidity. Extremities: Femorals are slightly diminished, there is no bruits. Leg pulses are diminished. There is trace 2- edema, with venous stasis dermatitis. There is no DVT or cellulitis there is no cyanosis or clubbing there is no DVT or cellulitis. There is no calf tenderness. LEAD QA ANALYST: The patient is awake alert oriented 3 with no focal deficits. But in spite of this he has slow mentation. Psychiatric: The patient judgment and insight are intact and his affect is flat. The patient's 24-hour intake is 2227 mL and total 24-hour output is 370 ml. Labs- All tests 24 hr 06/01/19 06:25 Carbonic Acid 1.14 HCO3/H2CO3 Ratio 20:1 ABG pH 7.41 ABG pCO2 37.9 ABG pO2 73.3 L ABG HCO3 23.2 ABG Total CO2 24.4 ABG O2 Saturation 94.9 ABG Base Excess -1.3 FiO2 31% Chest X-Ray 05/12/19 11:53 IMPRESSION: No acute cardiopulmonary process. Chest X-Ray 05/14/19 00:00 IMPRESSION: No acute cardiopulmonary process. Chest X-Ray 05/15/19 15:34 IMPRESSION: Right jugular central line tip SVC. No Pneumothorax Renal Artery Duplex 05/20/19 06:00 IMPRESSION: Nondiagnostic study Chest X-Ray 05/20/19 09:58 IMPRESSION: Pulmonary edema pattern KUB X-Ray 05/23/19 00:00 IMPRESSION: NO RADIOGRAPHIC EVIDENCE FOR ACUTE ABDOMINAL DISEASE. Guidance Fluoroscopy 05/29/19 00:00 IMPRESSION: IMAGE(S) OBTAINED DURING PROCEDURE. iMPRESSION/RECOMMENDATION: 1. Acute respiratory failure secondary to combination of acute on chronic systolic heart failure, acute renal failure causing volume overload, acute exacerbation of COPD, and severe pulmonary hypertension. Continue BiPAP and oxygen support. 2. Acute on chronic systolic heart failure. Patient has been placed on fluid restriction of 1500 mL each 24 hours. The patient is off inotropes and IV n itroglycerin. He is on topical nitrates and hydralazine. His Entresto has been stopped, but still the patient renal function is deteriorating.. His renal artery Dopplers for renal artery stenosis remains negative albeit poor quality study. 3. Acute exacerbation COPD: Consider antibiotics. Continue respiratory treatments. This is improved. Will decrease the patient's dobutamine to 2.5 mcg/kg/min and subsequently discontinue the dobutamine since it is not really helping the patient. 4. Hypertension: At present blood pressure reasonable. 5. Severe pulmonary hypertension: The dobutamine the IV nitroglycerin and hydralazine should help. Later we will see the feasibility of starting sildenafil. 6. Acute on chronic renal failure. Avoid nephrotoxic drugs. The patient has been started on dialysis, in spite of this patient's renal function is deteriorating. The patient is now dialysis dependent and has reached end-stage renal disease. 7. Bipolar disorder 8. Tobacco abuse disorder. 9 coronary artery disease: History of coronary bypass graft surgery: No angina and troponin so far is not elevated. 10. Peripheral vascular disease: This will be addressed later on. 11. History of valvular repair: Details not available. Try to contact [facility] but they say they have not heard of the patient, and have no records on him. 12. Severe hearing loss: 13. Scabies. Medications reviewed. Medical regimen and management plan discussed with attending physician. Discussed with nephrology. Medical decision making is of moderate complexity. 40 minutes spent as patient more than 50% time spent in direct patient care. Will follow.
[2019-06-01] MEDS: QUETIAPINE FUMARATE 150 MG PO SCH (21:30)
[2019-06-01] MEDS: QUETIAPINE FUMARATE 300 MG PO SCH (22:25)
[2019-06-02] MEDS: HYDRALAZINE HCL 50 MG TABLET PO SCH ×2 (01:57→06:43)
[2019-06-02] MEDS ORDERED: HEPARIN SOD (PORCINE) 1,000 UNIT/ML 10 ML VIAL IV PRN (05:00)
[2019-06-02] MEDS ORDERED: EPOETIN ALFA-EPBX 2,000 UNIT, EPOETIN ALFA-EPBX 3,000 UNIT, EPOETIN ALFA-EPBX 20,000 UN... IV PRN ×4 (05:00)
[2019-06-02 06:24] LABS: ANION GAP 14 (5-19); BLOOD UREA NITROGEN 65 mg/dL (7-20); CALCIUM 8.4 mg/dL (8.4-10.2); CARBON DIOXIDE 23 mmol/L (22-30); CHLORIDE 94 mmol/L (98-107); GLUCOSE 100 mg/dL (75-110); POTASSIUM 4.8 mmol/L (3.6-5.0)
[2019-06-02 06:42] LABS: HEMATOCRIT 28.8 % (37.9-51.0); HEMOGLOBIN 9.3 g/dL (13.5-17.0); MEAN CORPUSCULAR HEMOGLOBIN 25.6 pg (27.0-33.4); MEAN CORPUSCULAR HGB CONC 32.2 g/dL (32.0-36.0); MEAN CORPUSCULAR VOLUME 79 fl (80-97); PLATELET COUNT 186 10^3/uL (150-450); RED BLOOD COUNT 3.63 10^6/uL (4.35-5.55); RED CELL DISTRIBUTION WIDTH 23.5 % (11.5-14.0); WHITE BLOOD COUNT 11.2 10^3/uL (4.0-10.5)
[2019-06-02] MEDS: HEPARIN SOD (PORCINE) 5,000 UNIT/ML 1 ML VIAL SUBCUT SCH ×3 (10:07→22:52)
[2019-06-02] MEDS: PANTOPRAZOLE SODIUM 40 MG TABLET.DR PO SCH (10:08)
[2019-06-02] MEDS: MINERAL OIL/PETROLATUM,WHITE CREAM 114 GM TP SCH (10:43)
[2019-06-02] MEDS: THIAMINE HCL 100 MG TABLET PO SCH (10:48)
[2019-06-02] MEDS: MULTIVITAMIN TABLET PO SCH (10:48)
[2019-06-02] MEDS: VITAMIN B COMPLEX TABLET PO SCH (10:49)
[2019-06-02] MEDS: GABAPENTIN 300 MG CAPSULE PO SCH (10:49)
[2019-06-02] MEDS: ASPIRIN 81 MG TABLET, ENT COATED PO SCH (10:49)
[2019-06-02] MEDS: METOPROLOL SUCCINATE 25 MG TAB.SR.24H PO SCH ×2 (10:49→22:51)
[2019-06-02] MEDS: PAROXETINE HCL 20 MG TABLET PO SCH ×2 (10:50)
[2019-06-02] MEDS: FLUTICASONE/UMECLIDIN/VILANTER 100-62.5-25 MCG/DOSE IH SCH (10:51)
[2019-06-02] MEDS: NITROGLYCERIN 15 MG (0.6 MG/1 HR) PATCH.TD24 TD SCH (10:51)
--- NOTE | 2019-06-02 11:53 | PDOC PROGRESS REPORT ---
Subjective Progress Note for:: 06/02/19 Reason For Visit: Patient seen in the hospital today. Still undergoing dialysis. Patient denies specific complaints of chest pain or shortness of breath. He denies any history of fever or chills. Urine output still rather oliguric. Labs and medications were reviewed. Dialysis orders were reviewed with the treating dialysis nurse. Physical Exam Vital Signs: Temp Pulse Resp BP Pulse Ox 98.6 F 57 L 20 110/55 L 97 06/02/19 00:54 06/02/19 07:00 06/02/19 00:54 06/02/19 00:54 06/02/19 04:32 Pulse Oximeter Continuous Start: 05/31/19 13:23 Freq: RTQ4 Status: Active Protocol: Document 06/02/19 04:32 [facility] (Rec: 06/02/19 04:33 [facility] [id number]) Pulse Oximetry Assessment Oxygen Saturation (92-100) 97 Oxygen Flow Rate (L/min) 2 Oxygen Delivery Method Nasal Cannula Fraction of Inspired Oxygen (FIO2) 28 Equipment Usage Equipment in Use Continuous SpO2 Machine # 1 Intake & Output 06/01/19 06/02/19 06/03/19 06:59 06:59 06:59 Intake Total 2227 1904 Output Total 370 375 Balance 1857 1529 Weight 120.2 kg 126 kg General appearance: PRESENT: no acute distress Respiratory exam: PRESENT: clear to auscultation torsten, decreased breath sounds. ABSENT: crackles Cardiovascular exam: PRESENT: +S1, +S2 GI/Abdominal exam: PRESENT: ascites, distended, firm, tenderness. ABSENT: guarding, soft Extremities exam: PRESENT: pedal edema Neurological exam: PRESENT: alert, awake Psychiatric exam: PRESENT: depressed Results Laboratory Results: 06/02/19 06:30 06/02/19 05:36 06/02/19 06/02/19 06/02/19 05:36 05:36 06:30 WBC Cancelled 11.2 H RBC Cancelled 3.63 L Hgb Cancelled 9.3 L Hct Cancelled 28.8 L MCV Cancelled 79 L MCH Cancelled 25.6 L MCHC Cancelled 32.2 RDW Cancelled 23.5 H Plt Count Cancelled 186 Sodium 130.5 L Potassium 4.8 Chloride 94 L Carbon Dioxide 23 Anion Gap 14 BUN 65 H Creatinine 5.16 H Est GFR ( Amer) 14 L Glucose 100 Calcium 8.4 05/12/19 05/12/19 05/13/19 12:00 18:31 00:16 Creatine Kinase CK-MB (CK-2) Troponin I 0.039 0.041 0.039 NT-Pro-B Natriuret Pep 8970 H 05/13/19 05/14/19 05/19/19 09:35 04:26 17:45 Creatine Kinase 230 H CK-MB (CK-2) 4.88 H Troponin I 0.047 NT-Pro-B Natriuret Pep 06000 H Impressions: Renal Artery Duplex 05/20/19 06:00 IMPRESSION: Nondiagnostic study Chest X-Ray 05/20/19 09:58 IMPRESSION: Pulmonary edema pattern KUB X-Ray 05/23/19 00:00 IMPRESSION: NO RADIOGRAPHIC EVIDENCE FOR ACUTE ABDOMINAL DISEASE. Guidance Fluoroscopy 05/29/19 00:00 IMPRESSION: IMAGE(S) OBTAINED DURING PROCEDURE. Assessment & Plan - Diagnosis (1) Acute exacerbation of congestive heart failure Qualifiers: Heart failure type: combined systolic and diastolic Qualified Code(s): I50.43 - Acute on chronic combined systolic (congestive) and diastolic (congestive) heart failure Is this a current diagnosis for this admission?: Yes Plan: Clinically improving. Continue current guidelines. (2) Acute kidney injury superimposed on chronic kidney disease Is this a current diagnosis for this admission?: Yes Plan: Still oliguric. Looks like patient has most likely reached ESRD status. Patient begun on hemodialysis. Currently being seen on dialysis. Undergoing dialysis well. Plan to remove approximately 1-2 L of fluid. Vital signs are stable. Dialysis orders were reviewed with the treating dialysis nurse. (3) Acute metabolic encephalopathy Is this a current diagnosis for this admission?: Yes Plan: Improving. (4) Anemia Is this a current diagnosis for this admission?: Yes Plan: Chronic kidney disease. Adjust erythropoietin. Monitor. (5) Bipolar disorder Is this a current diagnosis for this admission?: Yes Plan: Currently stable. (6) Cellulitis, leg Qualifiers: Laterality: unspecified laterality Qualified Code(s): L03.119 - Cellulitis of unspecified part of limb Is this a current diagnosis for this admission?: Yes Plan: Improving on antibiotics. (7) Scabies Is this a current diagnosis for this admission?: Yes Plan: As per hospitalist. (8) Stasis dermatitis of both legs Is this a current diagnosis for this admission?: Yes Plan: Stable. Some improvement with dialysis. (9) Peripheral vascular disease Is this a current diagnosis for this admission?: Yes Plan: Status quo. As per hospitalist.
[2019-06-02] MEDS ORDERED: HYDRALAZINE HCL 50 MG TABLET PO SCH (12:00)
[2019-06-02] MEDS: HYDRALAZINE HCL 25 MG TABLET PO SCH ×2 (13:01→17:11)
--- NOTE | 2019-06-02 14:16 | PDOC PROGRESS REPORT ---
Subjective Progress Note for:: 06/02/19 Reason For Visit: HEART FAILURE 06/02/2019 End-stage renal disease on hemodialysis, CHF, anemia chronic disease, bipolar, chronic venous stasis, encephalopathy, scabies Physical Exam Vital Signs: Temp Pulse Resp BP Pulse Ox 98.6 F 52 L 12 110/55 L 96 06/02/19 00:54 06/02/19 13:42 06/02/19 13:42 06/02/19 00:54 06/02/19 13:42 Pulse Oximeter Continuous Start: 05/31/19 13:23 Freq: RTQ4 Status: Active Protocol: Document 06/02/19 13:42 [facility] (Rec: 06/02/19 13:52 [facility] [email or web address]) Pulse Oximetry Assessment Oxygen Saturation (92-100) 96 Oxygen Flow Rate (L/min) 2 Oxygen Delivery Method Nasal Cannula Fraction of Inspired Oxygen (FIO2) 28 Equipment Usage Equipment in Use Continuous SpO2 Machine # 1 Intake & Output 06/01/19 06/02/19 06/03/19 06:59 06:59 06:59 Intake Total 2227 1904 240 Output Total 370 375 25 Balance 1857 1529 215 Weight 120.2 kg 126 kg General appearance: PRESENT: no acute distress Respiratory exam: PRESENT: clear to auscultation torsten. ABSENT: rales, rhonchi, wheezes Cardiovascular exam: PRESENT: RRR. ABSENT: diastolic murmur, rubs, systolic murmur Neurological exam: PRESENT: alert, awake, oriented to person, oriented to place, oriented to time, oriented to situation, CN II-XII grossly intact, other - No focal deficit. ABSENT: motor sensory deficit Psychiatric exam: PRESENT: appropriate affect, normal mood, other - Pleasant answers all questions. ABSENT: homicidal ideation, suicidal ideation Results Laboratory Results: 06/02/19 06:30 06/02/19 05:36 06/02/19 06/02/19 06/02/19 05:36 05:36 06:30 WBC Cancelled 11.2 H RBC Cancelled 3.63 L Hgb Cancelled 9.3 L Hct Cancelled 28.8 L MCV Cancelled 79 L MCH Cancelled 25.6 L MCHC Cancelled 32.2 RDW Cancelled 23.5 H Plt Count Cancelled 186 Sodium 130.5 L Potassium 4.8 Chloride 94 L Carbon Dioxide 23 Anion Gap 14 BUN 65 H Creatinine 5.16 H Est GFR ( Amer) 14 L Glucose 100 Calcium 8.4 05/12/19 05/12/19 05/13/19 12:00 18:31 00:16 Creatine Kinase CK-MB (CK-2) Troponin I 0.039 0.041 0.039 NT-Pro-B Natriuret Pep 8970 H 05/13/19 05/14/19 05/19/19 09:35 04:26 17:45 Creatine Kinase 230 H CK-MB (CK-2) 4.88 H Troponin I 0.047 NT-Pro-B Natriuret Pep 17402 H Impressions: Renal Artery Duplex 05/20/19 06:00 IMPRESSION: Nondiagnostic study Chest X-Ray 05/20/19 09:58 IMPRESSION: Pulmonary edema pattern KUB X-Ray 05/23/19 00:00 IMPRESSION: NO RADIOGRAPHIC EVIDENCE FOR ACUTE ABDOMINAL DISEASE. Guidance Fluoroscopy 05/29/19 00:00 IMPRESSION: IMAGE(S) OBTAINED DURING PROCEDURE. Assessment and Plan - Diagnosis (1) Acute respiratory failure with hypoxia Is this a current diagnosis for this admission?: Yes (2) Bipolar disorder Is this a current diagnosis for this admission?: Yes (3) Foot ulcer, right Qualifiers: Non-pressure ulcer stage: unspecified non-pressure ulcer stage Qualified Code(s): L97.519 - Non-pressure chronic ulcer of other part of right foot with unspecified severity Is this a current diagnosis for this admission?: Yes (4) Lactic acidosis Is this a current diagnosis for this admission?: Yes (5) Abdominal pain Qualifiers: Abdominal location: epigastric Qualified Code(s): R10.13 - Epigastric pain Is this a current diagnosis for this admission?: Yes (6) Acute combined systolic and diastolic congestive heart failure, NYHA class 4 Is this a current diagnosis for this admission?: Yes (7) Acute renal failure superimposed on stage 3 chronic kidney disease Is this a current diagnosis for this admission?: Yes (8) COPD (chronic obstructive pulmonary disease) Qualifiers: COPD type: COPD with acute exacerbation Qualified Code(s): J44.1 - Chronic obstructive pulmonary disease with (acute) exacerbation Is this a current diagnosis for this admission?: Yes (9) Elevated troponin Is this a current diagnosis for this admission?: Yes (10) Hypertension Qualifiers: Hypertension type: essential hypertension Qualified Code(s): I10 - Essential (primary) hypertension Is this a current diagnosis for this admission?: Yes (11) Venous stasis Is this a current diagnosis for this admission?: Yes (12) Scabies Is this a current diagnosis for this admission?: Yes - Plan Summary Summary: Palliative care consulted given patient's multiple comorbidities and overall poor functional state. 05/30/2019 Patient completed his dialysis today unfortunately he was not able to be transferred to [facility] because he was rejected at [facility] Patient has also been rejected at [facility] Patient will need dialysis once discharged from the hospital Today's BUN is 65 creatinine 6.34 Calcium 8.6 Cultures have showed no growth in 5 days Wound culture from right foot grew out staph aureus but this is been 18 days ago Patient is currently on no antibiotics Patient had a right permacath placed on 05/29/2019 05/31/2019 Sleeping but arouses easily Hemodynamically stable temperature 97.8 pulse 62, blood pressure 126/55, Patient's oxygen saturations are in the mid 90s but requires 5 L of nasal cannula. FiO2 of 40% Try to wean patient down to 3 L. If we cannot do this successfully I will repeat a blood gas Patient did receive hemodialysis yesterday Patient waiting fdc placement 06/01/2019 Patient is very much awake and alert and conversant. Oriented. Patient tells me this morning that he wants to go to a rehab unit when he is discharge. He shows me a brochure from [facility] Patient's vital signs are extremely stable. Will however need oxygen at 2-3 L at the time of discharge He will need no antibiotics at time of discharge. Patient will need to continue dialysis per nephrology's suggestions Patient's white count is down to 11,000, recent arterial blood gas is basically normal, last set of blood cultures were negative x5 days Patient is stable for discharge to facility 06/02/2019 Patient will possibly get a bed offer at [facility] Patient is undergoing dialysis on Sunday No indication for antibiotics Neurologically intact Labs are stable as one would expect for a dialysis patient Patient is able to maintain oxygen saturations in the upper 90s on 2 L nasal cannula. I suspect he could even gradually be weaned lower time permitting - Time Time Spent with patient: 15-24 minutes
--- NOTE | 2019-06-02 21:23 | Progress Note ---
Provider Note Provider Note: CARDIOLOGY PROGRESS NOTE by Dr. Radha Lara on 06/02/2019. SUBJECTIVE: The patient is still hard of hearing but denies any chest pain discomfort. There is no shortness of breath. There is no chest chest pain discomfort. There is no palpitations. There is no arrhythmia seen on the monitor. There is no PND orthopnea or wheezing. There is no TIA CVA symptoms. PHYSICAL EXAMINATION: The patient appears to be chronically ill but at present in no acute distress Selected Entries 06/02/19 06/02/19 15:32 16:00 Temperature 98.1 F Temperature Oral Source Pulse Rate 54 L Respiratory 20 Rate Blood Pressure 93/71 L Blood Pressure 78 Mean BP Location Right Arm BP Position Supine O2 Sat by Pulse 94 Oximetry Fraction of 28 Inspired Oxygen (FIO2) Oxygen Flow 2.00 Rate Oxygen Delivery Nasal Cannula Method HEAD: Head is atraumatic normocephalic. Eyes: Pupils are equal round regular reactive light accommodation extraocular movements are normal there is no congenital pallor there is no scleral icterus. Ears: External auditory canals are clear, there are no lesions of the pinna. Nose: No deviated nasal septum and no inflammation of the nasal mucous membrane. Mouth: Mucous membranes of mouth are moist tongue is moist there is no ulcers there is no bleeding from the gums. Throat: There is no redness of the oropharynx there is no exudates. Skin: There is no petechia or ecchymosis there is no skin lesions or skin rash es. Neck: Neck is supple there is JVD present. Carotids equal there is no bruit there is no lymphadenopathy there is no neck stiffness. There is no goiter trachea central lungs: Lungs show diminished air entry and prolonged expiration. Scattered rhonchi and wheezing present. There is no no bibasilar rales of CHF. Few dry crackles in the right base. There is no chest wall tenderness. HEART: S1-S2 is heard there is no S3 gallop there is no S4 gallop S1 is of normal intensity. There is no rub. The systolic murmur of MR and TR. There is no prosthetic valve clicks heard. Abdomen: Abdomen is soft, mildly distended, no definite ascites. There is no hepatosplenomegaly. Bowel sounds well heard there is no tender areas of masses. There is no rebound guarding or rigidity. Extremities: Femorals are slightly diminished, there is no bruits. Leg pulses are diminished. There is trace 2- edema, with venous stasis dermatitis. There is no DVT or cellulitis there is no cyanosis or clubbing there is no DVT or cellulitis. There is no calf tenderness. 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 But in spite of this he has slow mentation. Psychiatric: The patient judgment and insight are intact and his affect. Labs- All tests 24 hr 06/02/19 06/02/19 06/02/19 05:36 05:36 06:30 WBC Cancelled 11.2 H RBC Cancelled 3.63 L Hgb Cancelled 9.3 L Hct Cancelled 28.8 L MCV Cancelled 79 L MCH Cancelled 25.6 L MCHC Cancelled 32.2 RDW Cancelled 23.5 H Plt Count Cancelled 186 Platelet Estimate Cancelled Sodium 130.5 L Potassium 4.8 Chloride 94 L Carbon Dioxide 23 Anion Gap 14 BUN 65 H Creatinine 5.16 H Est GFR ( Amer) 14 L Est GFR (MDRD) Non-Af 11 L Glucose 100 Calcium 8.4 Slides for Path Review Cancelled Chest X-Ray 05/12/19 11:53 IMPRESSION: No acute cardiopulmonary process. Chest X-Ray 05/14/19 00:00 IMPRESSION: No acute cardiopulmonary process. Chest X-Ray 05/15/19 15:34 IMPRESSION: Right jugular central line tip SVC. No Pneumothorax Renal Artery Duplex 05/20/19 06:00 IMPRESSION: Nondiagnostic study Chest X-Ray 05/20/19 09:58 IMPRESSION: Pulmonary edema pattern KUB X-Ray 05/23/19 00:00 IMPRESSION: NO RADIOGRAPHIC EVIDENCE FOR ACUTE ABDOMINAL DISEASE. Guidance Fluoroscopy 05/29/19 00:00 IMPRESSION: IMAGE(S) OBTAINED DURING PROCEDURE. iMPRESSION/RECOMMENDATION: 1. Acute respiratory failure secondary to combination of acute on chronic systolic heart failure, acute renal failure causing volume overload, acute exacerbation of COPD, and severe pulmonary hypertension, this is immensely improved and the patient is on nasal oxygen and not on BiPAP anymore. 2. Acute on chronic systolic heart failure. Patient has been placed on fluid restriction of 1500 mL each 24 hours. The patient is off inotropes and IV nitroglycerin. He is on topical nitrates and hydralazine. His Entresto has been stopped.. His low blood pressure precludes the reinstituting of ARB or Entresto. His renal artery Dopplers for renal artery stenosis remains negative albeit poor quality study. 3. Acute exacerbation COPD: Consider antibiotics. Continue respiratory treatments. 4. Hypertension: At present blood pressure reasonable. 5. Severe pulmonary hypertension: He is on nitrates and hence cannot use sildenafil. Also his blood pressure is low and hence cannot place him on a calcium channel laurie especially in view of associated severe LV dysfunction, and cannot increase the patient's hydralazine due to low blood pressure. 6. Acute on chronic renal failure. Avoid nephrotoxic drugs. The patient has been started on dialysis, in spite of this patient's renal function is deteriorating. The patient is now dialysis dependent and has reached end-stage renal disease. 7. Bipolar disorder 8. Tobacco abuse disorder. 9 coronary artery disease: History of coronary bypass graft surgery: No angina and troponin so far is not elevated. 10. Peripheral vascular disease: This will be addressed later on. 11. History of valvular repair: Details not available. Try to contact [facility] but they say they have not heard of the patient, and have no records on him. 12. Severe hearing loss: 13. Scabies. This is resolved. Medications reviewed. Medical regimen and management plan discussed with attending physician. Discussed with nephrology. Medical decision making is of moderate complexity. 40 minutes spent as patient more than 50% time spent in direct patient care. Patient awaiting placement in a rehab facility. Will follow.
[2019-06-02] MEDS: ACETAMINOPHEN 325 MG TABLET PO PRN (22:50)
[2019-06-02] MEDS: QUETIAPINE FUMARATE 150 MG PO SCH (22:51)
[2019-06-02] MEDS: QUETIAPINE FUMARATE 300 MG PO SCH (22:51)
[2019-06-03] MEDS: HYDRALAZINE HCL 25 MG TABLET PO SCH ×4 (00:30→17:40)
[2019-06-03] MEDS: ONDANSETRON HCL INJ/PF 4 MG/2 ML SDV IV PRN ×4 (02:14→22:27)
[2019-06-03] MEDS: PANTOPRAZOLE SODIUM 40 MG TABLET.DR PO SCH (06:09)
[2019-06-03] MEDS: HEPARIN SOD (PORCINE) 5,000 UNIT/ML 1 ML VIAL SUBCUT SCH ×3 (06:10→22:22)
[2019-06-03] MEDS: NITROGLYCERIN 15 MG (0.6 MG/1 HR) PATCH.TD24 TD SCH (09:50)
[2019-06-03] MEDS: METOPROLOL SUCCINATE 25 MG TAB.SR.24H PO SCH ×2 (09:54→22:23)
[2019-06-03] MEDS: ASPIRIN 81 MG TABLET, ENT COATED PO SCH (09:55)
[2019-06-03] MEDS: FLUTICASONE/UMECLIDIN/VILANTER 100-62.5-25 MCG/DOSE IH SCH (09:55)
[2019-06-03] MEDS: MULTIVITAMIN TABLET PO SCH (09:56)
[2019-06-03] MEDS: THIAMINE HCL 100 MG TABLET PO SCH (09:56)
[2019-06-03] MEDS: VITAMIN B COMPLEX TABLET PO SCH (09:56)
[2019-06-03] MEDS: PAROXETINE HCL 20 MG TABLET PO SCH ×2 (09:56)
[2019-06-03] MEDS: GABAPENTIN 300 MG CAPSULE PO SCH (09:56)
[2019-06-03] MEDS: MINERAL OIL/PETROLATUM,WHITE CREAM 114 GM TP SCH (09:57)
--- NOTE | 2019-06-03 13:12 | RADIOLOGY REPORT (SQ) ---
EXAM DESCRIPTION: CT ABD/PELVIS NO ORAL OR IV COMPLETED DATE/TIME: 06/03/2019 12:49 pm REASON FOR STUDY: Possible obstructoin, significant nausea/vomiting COMPARISON: None. TECHNIQUE: CT scan of the abdomen and pelvis performed without intravenous or oral contrast. Images reviewed with lung, soft tissue, and bone windows. Reconstructed coronal and sagittal MPR images revi ewed. All images stored on PACS. All CT scanners at this facility use dose modulation, iterative reconstruction, and/or weight based d osing when appropriate to reduce radiation dose to as low as reasonably achievable (ALARA). [facility]: Dose Right [facility]: CareDose [facility]: Dose Right [facility]: Teradose 4D [facility]: [employer] RADIATION DOSE: CT Rad equipment meets quality standard of care and radiation dose reduction techniq ues were employed. CTDIvol: 18.9 mGy. DLP: 1144 mGy-cm.mGy. LIMITATIONS: None. FINDINGS: LOWER CHEST: Extensive patchy basilar areas of airspace disease and edema with bilateral s mall effusions and cardiomegaly. NON-CONTRASTED LIVER, SPLEEN, ADRENALS: Evaluation limited by lack of IV contrast. No identified sign ificant masses. PANCREAS: No masses. No peripancreatic inflammatory changes. GALLBLADDER: No identified stones by CT criteria. No inflammatory changes to suggest cholecystitis. RIGHT KIDNEY AND URETER: No solid masses. No significant calcification. No hydronephrosis or hydroure ter. LEFT KIDNEY AND URETER: No solid masses. No significant calcification. No hydronephrosis or hydrouret er. AORTA AND RETROPERITONEUM: No aortic aneurysm. IVC filter in place. BOWEL AND PERITONEAL CAVITY: No obstruction. Mild ascites. APPENDIX: Normal. PELVIS, BLADDER, AND ABDOMINAL WALL:Brody catheter. BONES: No significant findings. OTHER: No other significant finding. IMPRESSION: 1. Basilar lung changes as above. Given history of significant nausea and vomiting, this could be du e to aspiration pneumonia. A component of cardiogenic edema is also in the differential. 2. No distended bowel loops to suggest obstruction. There is mild ascites. TECHNICAL DOCUMENTATION: JOB ID: [id number] Quality ID # [id number]: Final reports with documentation of one or more dose reduction techniques (e.g., Au tomated exposure control, adjustment of the mA and/or kV according to patient size, use of iterative reconstruction technique) 2010 [employer]- All Rights Reserved Reading location - IP/workstation name: [email or web address]
--- NOTE | 2019-06-03 13:35 | PDOC PROGRESS REPORT ---
Subjective Progress Note for:: 06/03/19 Subjective:: 06/03/2019: Patient was seen and examined. He complains of nausea and vomiting. CT scan of the abdomen shows no obstruction. Waiting for placement. Reason For Visit: HEART FAILURE Physical Exam Vital Signs: Temp Pulse Resp BP Pulse Ox 98.1 F 59 L 14 113/55 L 90 L 06/03/19 11:50 06/03/19 11:50 06/03/19 11:50 06/03/19 11:50 06/03/19 12:00 Pulse Oximeter Continuous Start: 05/31/19 13:23 Freq: RTQ4 Status: Active Protocol: Document 06/03/19 12:00 [facility] (Rec: 06/03/19 13:09 [facility] [id number]) Pulse Oximetry Assessment Oxygen Saturation (92-100) 90 Oxygen Flow Rate (L/min) 2 Oxygen Delivery Method Nasal Cannula Equipment Usage Equipment in Use Continuous SpO2 Machine # 1 Intake & Output 06/02/19 06/03/19 06/04/19 06:59 06:59 06:59 Intake Total 1904 684 Output Total 375 1100 Balance 1529 -416 Weight 277 lb 12.519 oz 276 lb 3.827 oz Exam: Patient is no acute distress Alert oriented to time place person No anxiety or depression Head: atraumatic normocephalic Pupils: are equal reactive Neck: is supple and trachea is central no lymphadenopathy No pharyngeal erythema or exudates Heart: Regular rate and rhythm, no peripheral edema Lungs: clear to auscultation, no respiratory distress Abdomen: nontender nondistended Neurological exam: unremarkable Musculoskeletal: No joint swelling or effusion chronic lower back pain and tenderness. Chronic leg skin changes. No suicidal or homicidal ideation Results Laboratory Results: 06/02/19 06:30 06/02/19 05:36 05/12/19 05/12/19 05/13/19 12:00 18:31 00:16 Creatine Kinase CK-MB (CK-2) Troponin I 0.039 0.041 0.039 NT-Pro-B Natriuret Pep 8970 H 05/13/19 05/14/19 05/19/19 09:35 04:26 17:45 Creatine Kinase 230 H CK-MB (CK-2) 4.88 H Troponin I 0.047 NT-Pro-B Natriuret Pep 20658 H Impressions: Renal Artery Duplex 05/20/19 06:00 IMPRESSION: Nondiagnostic study Chest X-Ray 05/20/19 09:58 IMPRESSION: Pulmonary edema pattern KUB X-Ray 05/23/19 00:00 IMPRESSION: NO RADIOGRAPHIC EVIDENCE FOR ACUTE ABDOMINAL DISEASE. Guidance Fluoroscopy 05/29/19 00:00 IMPRESSION: IMAGE(S) OBTAINED DURING PROCEDURE. Abdomen/Pelvis CT 06/03/19 12:27 IMPRESSION: 1. Basilar lung changes as above. Given history of significant nausea and vomiting, this could be due to aspiration pneumonia. A component of cardiogenic edema is also in the differential. 2. No distended bowel loops to suggest obstruction. There is mild ascites. Assessment and Plan - Plan Summary Summary: (1) Acute respiratory failure with hypoxia Is this a current diagnosis for this admission?: Yes (2) Bipolar disorder Is this a current diagnosis for this admission?: Yes (3) Foot ulcer, right Qualifiers: Non-pressure ulcer stage: unspecified non-pressure ulcer stage Qualified Code(s): L97.519 - Non-pressure chronic ulcer of other part of right foot with unspecified severity Is this a current diagnosis for this admission?: Yes (4) Lactic acidosis Is this a current diagnosis for this admission?: Yes (5) Abdominal pain Qualifiers: Abdominal location: epigastric Qualified Code(s): R10.13 - Epigastric pain Is this a current diagnosis for this admission?: Yes (6) Acute combined systolic and diastolic congestive heart failure, NYHA class 4 Is this a current diagnosis for this admission?: Yes (7) Acute renal failure superimposed on stage 3 chronic kidney disease Is this a current diagnosis for this admission?: Yes (8) COPD (chronic obstructive pulmonary disease) Qualifiers: COPD type: COPD with acute exacerbation Qualified Code(s): J44.1 - Chronic obstructive pulmonary disease with (acute) exacerbation Is this a current diagnosis for this admission?: Yes (9) Elevated troponin Is this a current diagnosis for this admission?: Yes (10) Hypertension Qualifiers: Hypertension type: essential hypertension Qualified Code(s): I10 - Essential (primary) hypertension Is this a current diagnosis for this admission?: Yes (11) Venous stasis Is this a current diagnosis for this admission?: Yes (12) Scabies Is this a current diagnosis for this admission?: Yes Palliative care consulted given patient's multiple comorbidities and overall poor functional state. 05/30/2019 Patient completed his dialysis today unfortunately he was not able to be transferred to shelter facility because he was rejected at [facility] Patient has also been rejected at [facility] Patient will need dialysis once discharged from the hospital Today's BUN is 65 creatinine 6.34 Calcium 8.6 Cultures have showed no growth in 5 days Wound culture from right foot grew out staph aureus but this is been 18 days ago Patient is currently on no antibiotics Patient had a right permacath placed on 05/29/2019 05/31/2019 Sleeping but arouses easily Hemodynamically stable temperature 97.8 pulse 62, blood pressure 126/55, Patient's oxygen saturations are in the mid 90s but requires 5 L of nasal cannula. FiO2 of 40% Try to wean patient down to 3 L. If we cannot do this successfully I will repeat a blood gas Patient did receive hemodialysis yesterday Patient waiting shelter placement 06/01/2019 Patient is very much awake and alert and conversant. Oriented. Patient tells me this morning that he wants to go to a rehab unit when he is discharge. He shows me a brochure from [facility] Patient's vital signs are extremely stable. Will however need oxygen at 2-3 L at the time of discharge He will need no antibiotics at time of discharge. Patient will need to continue dialysis per nephrology's suggestions Patient's white count is down to 11,000, recent arterial blood gas is basically normal, last set of blood cultures were negative x5 days Patient is stable for discharge to facility 06/02/2019 Patient will possibly get a bed offer at [facility] Patient is undergoing dialysis on Sunday No indication for antibiotics Neurologically intact Labs are stable as one would expect for a dialysis patient Patient is able to maintain oxygen saturations in the upper 90s on 2 L nasal cannula. I suspect he could even gradually be weaned lower time permitting 06/03/2019 Complains of nausea and vomiting. CT scan of the abdomen pelvis negative for any bowel obstruction. Still awaiting placement. Continue current medications.
[2019-06-03 15:38] LABS: ANION GAP 12 (5-19); BLOOD UREA NITROGEN 50 mg/dL (7-20); CALCIUM 8.5 mg/dL (8.4-10.2); CARBON DIOXIDE 27 mmol/L (22-30); CHLORIDE 92 mmol/L (98-107); GLUCOSE 120 mg/dL (75-110); POTASSIUM 4.8 mmol/L (3.6-5.0)
--- NOTE | 2019-06-03 19:36 | Progress Note ---
Provider Note Provider Note: CARDIOLOGY PROGRESS NOTE by Dr. Puckett spent on 06/03/2019. SUBJECTIVE: Difficult to communicate with the patient due to his hearing loss. But he states that he has no chest pain discomfort. There is no cough. There is no shortness of breath. There is no arrhythmia seen on the monitor. He states last yesterday night he had some nausea but that is resolved. His appetite is good at present. PHYSICAL EXAMINATION: The patient appears to be chronically ill. In no acute distress. Selected Entries 06/03/19 15:45 Temperature 98.0 F Temperature Axillary Source Pulse Rate 58 L Respiratory 15 Rate Blood Pressure 103/83 Blood Pressure 89 Mean BP Location Left Arm BP Position Supine O2 Sat by Pulse 97 Oximetry Oxygen Flow 2.00 Rate Oxygen Delivery Nasal Cannula Method HEAD: Head is atraumatic normocephalic. Eyes: Pupils are equal round regular reactive light accommodation extraocular movements are normal there is no congenital pallor there is no scleral icterus. Ears: External auditory canals are clear, there are no lesions of the pinna. Nose: No deviated nasal septum and no inflammation of the nasal mucous membrane. Mouth: Mucous membranes of mouth are moist tongue is moist there is no ulcers there is no bleeding from the gums. Throat: There is no redness of the oropharynx there is no exudates. Skin: There is no petechia or ecchymosis there is no skin lesions or skin rashes. Neck: Neck is supple there is JVD present. Carotids equal there is no bruit there is no lymphadenopathy there is no neck stiffness. There is no goiter trachea central lungs: Lungs show diminished air entry and prolonged expiration. Scattered rhonchi and wheezing present. There is no no bibasilar rales of CHF. Few dry crackles in the right base. There is no chest wall tenderness. HEART: S1-S2 is heard there is no S3 gallop there is no S4 gallop S1 is of normal intensity. There is no rub. The systolic murmur of MR and TR. There is no prosthetic valve clicks heard. Abdomen: Abdomen is soft, mildly distended, no definite ascites. There is no hepatosplenomegaly. Bowel sounds well heard there is no tender areas of masses. There is no rebound guarding or rigidity. Extremities: Femorals are slightly diminished, there is no bruits. Leg pulses are diminished. There is trace 2- edema, with venous stasis dermatitis. There is no DVT or cellulitis there is no cyanosis or clubbing there is no DVT or cellulitis. There is no calf tenderness. 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 But in spite of this he has slow mentation. Psychiatric: The patient judgment and insight are intact and his affect. Labs- All tests 24 hr 06/03/19 14:27 Sodium 131.1 L Potassium 4.8 Chloride 92 L Carbon Dioxide 27 Anion Gap 12 BUN 50 H Creatinine 3.69 H Est GFR ( Amer) 20 L Est GFR (MDRD) Non-Af 17 L Glucose 120 H Calcium 8.5 Chest X-Ray 05/12/19 11:53 IMPRESSION: No acute cardiopulmonary process. Chest X-Ray 05/14/19 00:00 IMPRESSION: No acute cardiopulmonary process. Chest X-Ray 05/15/19 15:34 IMPRESSION: Right jugular central line tip SVC. No Pneumothorax Renal Artery Duplex 05/20/19 06:00 IMPRESSION: Nondiagnostic study Chest X-Ray 05/20/19 09:58 IMPRESSION: Pulmonary edema pattern KUB X-Ray 05/23/19 00:00 IMPRESSION: NO RADIOGRAPHIC EVIDENCE FOR ACUTE ABDOMINAL DISEASE. Guidance Fluoroscopy 05/29/19 00:00 IMPRESSION: IMAGE(S) OBTAINED DURING PROCEDURE. Abdomen/Pelvis CT 06/03/19 12:27 IMPRESSION: 1. Basilar lung changes as above. Given history of significant nausea and vomiting, this could be due to aspiration pneumonia. A component of cardiogenic edema is also in the differential. 2. No distended bowel loops to suggest obstruction. There is mild ascites. iMPRESSION/RECOMMENDATION: 1. Acute respiratory failure secondary to combination of acute on chronic systolic heart failure, acute renal failure causing volume overload, acute exacerbation of COPD, and severe pulmonary hypertension, this is immensely improved and the patient is on nasal oxygen and not on BiPAP anymore. 2. Acute on chronic systolic heart failure. Patient has been placed on fluid restriction of 1500 mL each 24 hours. The patient is off inotropes and IV nitroglycerin. He is on topical nitrates and hydralazine. His Entresto has been stopped.. His low blood pressure precludes the reinstituting of ARB or Entresto. His renal artery Dopplers for renal artery stenosis remains negative albeit poor quality study. At present the patient is compensated from his heart failure. 3. Acute exacerbation COPD: This is resolved. 4. Hypertension: At present blood pressure reasonable. 5. Severe pulmonary hypertension: He is on nitrates and hence cannot use sildenafil. Also his blood pressure is low and hence cannot place him on a calcium channel laurie especially in view of associated severe LV dysfunction, and cannot increase the patient's hydralazine due to low blood pressure. 6. Acute on chronic renal failure. Avoid nephrotoxic drugs. The patient has been started on dialysis, in spite of this patient's renal function is deteriorating. The patient is now dialysis dependent and has reached end-stage renal disease. 7. Bipolar disorder 8. Tobacco abuse disorder. 9 coronary artery disease: History of coronary bypass graft surgery: No angina and troponin so far is not elevated. 10. Peripheral vascular disease: This will be addressed later on. 11. History of valvular repair: Details not available. Try to contact [facility] but they say they have not heard of the patient, and have no records on him. 12. Severe hearing loss: 13. Scabies. This is resolved. Medications reviewed. Medical regimen and management plan discussed with attending physician. Discussed with nephrology. Medical decision making is of moderate complexity. 40 minutes spent as patient more than 50% time spent in direct patient care. Patient awaiting placement in a rehab facility. Will follow.
[2019-06-03] MEDS: QUETIAPINE FUMARATE 150 MG PO SCH (22:22)
[2019-06-03] MEDS: QUETIAPINE FUMARATE 300 MG PO SCH (22:22)
[2019-06-04] MEDS: HYDRALAZINE HCL 25 MG TABLET PO SCH ×5 (00:09→18:43)
[2019-06-04] MEDS ORDERED: HEPARIN SOD (PORCINE) 1,000 UNIT/ML 10 ML VIAL IV PRN (05:00)
[2019-06-04] MEDS ORDERED: EPOETIN ALFA-EPBX 2,000 UNIT, EPOETIN ALFA-EPBX 3,000 UNIT, EPOETIN ALFA-EPBX 20,000 UN... IV PRN ×4 (05:00)
[2019-06-04] MEDS: PANTOPRAZOLE SODIUM 40 MG TABLET.DR PO SCH (05:19)
[2019-06-04] MEDS: HEPARIN SOD (PORCINE) 5,000 UNIT/ML 1 ML VIAL SUBCUT SCH ×3 (05:19→22:07)
[2019-06-04] MEDS: ONDANSETRON HCL INJ/PF 4 MG/2 ML SDV IV PRN ×3 (05:22→22:08)
[2019-06-04 05:51] LABS: HEMOGLOBIN 10.1 g/dL (13.5-17.0); MEAN CORPUSCULAR HEMOGLOBIN 26.2 pg (27.0-33.4); MEAN CORPUSCULAR HGB CONC 32.6 g/dL (32.0-36.0); MEAN CORPUSCULAR VOLUME 81 fl (80-97); PLATELET COUNT 271 10^3/uL (150-450); RED BLOOD COUNT 3.85 10^6/uL (4.35-5.55); RED CELL DISTRIBUTION WIDTH 23.8 % (11.5-14.0); WHITE BLOOD COUNT 11.1 10^3/uL (4.0-10.5)
[2019-06-04 06:24] LABS: ANION GAP 12 (5-19); BLOOD UREA NITROGEN 54 mg/dL (7-20); CALCIUM 8.7 mg/dL (8.4-10.2); CARBON DIOXIDE 28 mmol/L (22-30); CHLORIDE 93 mmol/L (98-107); GLUCOSE 115 mg/dL (75-110); POTASSIUM 4.9 mmol/L (3.6-5.0)
[2019-06-04] MEDS: GABAPENTIN 300 MG CAPSULE PO SCH (10:22)
[2019-06-04] MEDS: ASPIRIN 81 MG TABLET, ENT COATED PO SCH (10:22)
[2019-06-04] MEDS: MINERAL OIL/PETROLATUM,WHITE CREAM 114 GM TP SCH (10:22)
[2019-06-04] MEDS: MULTIVITAMIN TABLET PO SCH (10:23)
[2019-06-04] MEDS: FLUTICASONE/UMECLIDIN/VILANTER 100-62.5-25 MCG/DOSE IH SCH (10:23)
[2019-06-04] MEDS: PAROXETINE HCL 20 MG TABLET PO SCH ×2 (10:23)
[2019-06-04] MEDS: METOPROLOL SUCCINATE 25 MG TAB.SR.24H PO SCH ×2 (10:23→22:05)
[2019-06-04] MEDS: THIAMINE HCL 100 MG TABLET PO SCH (10:23)
[2019-06-04] MEDS: VITAMIN B COMPLEX TABLET PO SCH (10:24)
[2019-06-04] MEDS: NITROGLYCERIN 15 MG (0.6 MG/1 HR) PATCH.TD24 TD SCH (11:48)
--- NOTE | 2019-06-04 12:17 | PDOC PROGRESS REPORT ---
Subjective Progress Note for:: 06/04/19 Subjective:: 06/03/2019: Patient was seen and examined. He complains of nausea and vomiting. CT scan of the abdomen shows no obstruction. Waiting for placement. 06/04/2019: Patient was seen and examined. He continues to vomit. Today he vomited liquid dark emesis. Not tolerating any diet. Physical examination: Patient is no acute distress Alert oriented to time place person No anxiety or depression Head: atraumatic normocephalic Pupils: are equal reactive Neck: is supple and trachea is central no lymphadenopathy No pharyngeal erythema or exudates Heart: Regular rate and rhythm, no peripheral edema Lungs: clear to auscultation, no respiratory distress Abdomen: nontender nondistended Neurological exam: unremarkable Musculoskeletal: No joint swelling or effusion chronic lower back pain and tenderness. Chronic leg skin changes. No suicidal or homicidal ideation Reason For Visit: HEART FAILURE Physical Exam Vital Signs: Temp Pulse Resp BP Pulse Ox 98.6 F 70 18 145/87 H 99 06/04/19 07:28 06/04/19 11:51 06/04/19 11:51 06/04/19 07:28 06/04/19 11:51 Pulse Oximeter Continuous Start: 05/31/19 13:23 Freq: RTQ4 Status: Active Protocol: Document 06/04/19 08:40 [facility] (Rec: 06/04/19 12:10 [facility] [id number]) Pulse Oximetry Assessment Oxygen Saturation (92-100) 99 Oxygen Delivery Method Room Air Fraction of Inspired Oxygen (FIO2) 1 Equipment Usage Equipment in Use Continuous SpO2 Machine # 1 Intake & Output 06/03/19 06/04/19 06/05/19 06:59 06:59 06:59 Intake Total 684 580 75 Output Total 1100 500 125 Balance -416 80 -50 Weight 276 lb 3.827 oz 264 lb 1.82 oz Results Laboratory Results: 06/04/19 05:25 06/04/19 05:25 06/03/19 06/04/19 06/04/19 14:27 05:25 05:25 WBC 11.1 H RBC 3.85 L Hgb 10.1 L Hct 31.0 L MCV 81 MCH 26.2 L MCHC 32.6 RDW 23.8 H Plt Count 271 Sodium 131.1 L 133.4 L Potassium 4.8 4.9 Chloride 92 L 93 L Carbon Dioxide 27 28 Anion Gap 12 12 BUN 50 H 54 H Creatinine 3.69 H 3.95 H Est GFR ( Amer) 20 L 19 L Glucose 120 H 115 H Calcium 8.5 8.7 05/12/19 05/12/19 05/13/19 12:00 18:31 00:16 Creatine Kinase CK-MB (CK-2) Troponin I 0.039 0.041 0.039 NT-Pro-B Natriuret Pep 8970 H 05/13/19 05/14/19 05/19/19 09:35 04:26 17:45 Creatine Kinase 230 H CK-MB (CK-2) 4.88 H Troponin I 0.047 NT-Pro-B Natriuret Pep 88247 H Impressions: Renal Artery Duplex 05/20/19 06:00 IMPRESSION: Nondiagnostic study Chest X-Ray 05/20/19 09:58 IMPRESSION: Pulmonary edema pattern KUB X-Ray 05/23/19 00:00 IMPRESSION: NO RADIOGRAPHIC EVIDENCE FOR ACUTE ABDOMINAL DISEASE. Guidance Fluoroscopy 05/29/19 00:00 IMPRESSION: IMAGE(S) OBTAINED DURING PROCEDURE. Abdomen/Pelvis CT 06/03/19 12:27 IMPRESSION: 1. Basilar lung changes as above. Given history of significant nausea and vomiting, this could be due to aspiration pneumonia. A component of cardiogenic edema is also in the differential. 2. No distended bowel loops to suggest obstruction. There is mild ascites. Assessment and Plan - Plan Summary Summary: (1) Acute respiratory failure with hypoxia Is this a current diagnosis for this admission?: Yes (2) Bipolar disorder Is this a current diagnosis for this admission?: Yes (3) Foot ulcer, right Qualifiers: Non-pressure ulcer stage: unspecified non-pressure ulcer stage Qualified Code(s): L97.519 - Non-pressure chronic ulcer of other part of right foot with unspecified severity Is this a current diagnosis for this admission?: Yes (4) Lactic acidosis Is this a current diagnosis for this admission?: Yes (5) Abdominal pain Qualifiers: Abdominal location: epigastric Qualified Code(s): R10.13 - Epigastric pain Is this a current diagnosis for this admission?: Yes (6) Acute combined systolic and diastolic congestive heart failure, NYHA class 4 Is this a current diagnosis for this admission?: Yes (7) Acute renal failure superimposed on stage 3 chronic kidney disease Is this a current diagnosis for this admission?: Yes (8) COPD (chronic obstructive pulmonary disease) Qualifiers: COPD type: COPD with acute exacerbation Qualified Code(s): J44.1 - Chronic obstructive pulmonary disease with (acute) exacerbation Is this a current diagnosis for this admission?: Yes (9) Elevated troponin Is this a current diagnosis for this admission?: Yes (10) Hypertension Qualifiers: Hypertension type: essential hypertension Qualified Code(s): I10 - Essential (primary) hypertension Is this a current diagnosis for this admission?: Yes (11) Venous stasis Is this a current diagnosis for this admission?: Yes (12) Scabies Is this a current diagnosis for this admission?: Yes Palliative care consulted given patient's multiple comorbidities and overall poor functional state. 05/30/2019 Patient completed his dialysis today unfortunately he was not able to be transferred to detention facility because he was rejected at [facility] Patient has also been rejected at [place] Patient will need dialysis once discharged from the hospital Today's BUN is 65 creatinine 6.34 Calcium 8.6 Cultures have showed no growth in 5 days Wound culture from right foot grew out staph aureus but this is been 18 days ago Patient is currently on no antibiotics Patient had a right permacath placed on 05/29/2019 05/31/2019 Sleeping but arouses easily Hemodynamically stable temperature 97.8 pulse 62, blood pressure 126/55, Patient's oxygen saturations are in the mid 90s but requires 5 L of nasal cannula. FiO2 of 40% Try to wean patient down to 3 L. If we cannot do this successfully I will repeat a blood gas Patient did receive hemodialysis yesterday Patient waiting [facility] placement 06/01/2019 Patient is very much awake and alert and conversant. Oriented. Patient tells me this morning that he wants to go to a rehab unit when he is discharge. He shows me a brochure from [facility] Patient's vital signs are extremely stable. Will however need oxygen at 2-3 L at the time of discharge He will need no antibiotics at time of discharge. Patient will need to continue dialysis per nephrology's suggestions Patient's white count is down to 11,000, recent arterial blood gas is basically normal, last set of blood cultures were negative x5 days Patient is stable for discharge to facility 06/02/2019 Patient will possibly get a bed offer at [facility] Patient is undergoing dialysis on Sunday No indication for antibiotics Neurologically intact Labs are stable as one would expect for a dialysis patient Patient is able to maintain oxygen saturations in the upper 90s on 2 L nasal cannula. I suspect he could even gradually be weaned lower time permitting 06/03/2019 Complains of nausea and vomiting. CT scan of the abdomen pelvis negative for any bowel obstruction. Still awaiting placement. Continue current medications. 06/04/2019 Persistent vomiting. Today he threw up dark liquid emesis. Will start IV Protonix 40 mg twice daily. Consult surgery for possible EGD. Monitor H&H and transfuse if needed.
--- NOTE | 2019-06-04 14:13 | PDOC PROGRESS REPORT ---
Subjective Progress Note for:: 06/04/19 Reason For Visit: Patient seen today on dialysis. He has been having persistent nausea and vomiting since yesterday. CT scan done does not show any obstructive features. He is being treated symptomatically. Apparently he had some coffee-ground and is being treated with PPIs. He denies any abdominal pains at the moment. No complaints of any fever or chills. Labs and medications were reviewed. Hemoglobin stable. Dialysis orders were reviewed with the treating dialysis jesus alberto chance. Physical Exam Vital Signs: Temp Pulse Resp BP Pulse Ox 98.6 F 70 18 145/87 H 99 06/04/19 07:28 06/04/19 11:51 06/04/19 11:51 06/04/19 07:28 06/04/19 11:51 Pulse Oximeter Continuous Start: 05/31/19 13:23 Freq: RTQ4 Status: Active Protocol: Document 06/04/19 08:40 [facility] (Rec: 06/04/19 12:10 [facility] [id number]) Pulse Oximetry Assessment Oxygen Saturation (92-100) 99 Oxygen Delivery Method Room Air Fraction of Inspired Oxygen (FIO2) 1 Equipment Usage Equipment in Use Continuous SpO2 Machine # 1 Intake & Output 06/03/19 06/04/19 06/05/19 06:59 06:59 06:59 Intake Total 684 580 75 Output Total 1100 500 125 Balance -416 80 -50 Weight 125.3 kg 119.8 kg General appearance: PRESENT: no acute distress Respiratory exam: PRESENT: clear to auscultation torsten. ABSENT: crackles Cardiovascular exam: PRESENT: +S1, +S2 GI/Abdominal exam: PRESENT: normal bowel sounds, soft. ABSENT: guarding, organomegaly, tenderness Extremities exam: PRESENT: pedal edema Neurological exam: PRESENT: alert, awake, oriented to person Results Laboratory Results: 06/04/19 05:25 06/04/19 05:25 06/03/19 06/04/19 06/04/19 14:27 05:25 05:25 WBC 11.1 H RBC 3.85 L Hgb 10.1 L Hct 31.0 L MCV 81 MCH 26.2 L MCHC 32.6 RDW 23.8 H Plt Count 271 Sodium 131.1 L 133.4 L Potassium 4.8 4.9 Chloride 92 L 93 L Carbon Dioxide 27 28 Anion Gap 12 12 BUN 50 H 54 H Creatinine 3.69 H 3.95 H Est GFR ( Amer) 20 L 19 L Glucose 120 H 115 H Calcium 8.5 8.7 05/12/19 05/12/19 05/13/19 12:00 18:31 00:16 Creatine Kinase CK-MB (CK-2) Troponin I 0.039 0.041 0.039 NT-Pro-B Natriuret Pep 8970 H 05/13/19 05/14/19 05/19/19 09:35 04:26 17:45 Creatine Kinase 230 H CK-MB (CK-2) 4.88 H Troponin I 0.047 NT-Pro-B Natriuret Pep [id number] H Impressions: Renal Artery Duplex 05/20/19 06:00 IMPRESSION: Nondiagnostic study Chest X-Ray 05/20/19 09:58 IMPRESSION: Pulmonary edema pattern KUB X-Ray 05/23/19 00:00 IMPRESSION: NO RADIOGRAPHIC EVIDENCE FOR ACUTE ABDOMINAL DISEASE. Guidance Fluoroscopy 05/29/19 00:00 IMPRESSION: IMAGE(S) OBTAINED DURING PROCEDURE. Abdomen/Pelvis CT 06/03/19 12:27 IMPRESSION: 1. Basilar lung changes as above. Given history of significant nausea and vomiting, this could be due to aspiration pneumonia. A component of cardiogenic edema is also in the differential. 2. No distended bowel loops to suggest obstruction. There is mild ascites. Assessment & Plan - Diagnosis (1) Acute exacerbation of congestive heart failure Qualifiers: Heart failure type: combined systolic and diastolic Qualified Code(s): I50.43 - Acute on chronic combined systolic (congestive) and diastolic (congestive) heart failure Is this a current diagnosis for this admission?: Yes Plan: Clinically improving. Continue current guidelines. (2) Acute kidney injury superimposed on chronic kidney disease Is this a current diagnosis for this admission?: Yes Plan: Still oliguric. Looks like patient has most likely reached ESRD status. Patient begun on hemodialysis. Currently being seen on dialysis. Undergoing dialysis well. Plan to remove approximately 1 L of fluid. Vital signs are stable. Dialysis orders were reviewed with the treating dialysis nurse. (3) Acute metabolic encephalopathy Is this a current diagnosis for this admission?: Yes Plan: Improving. (4) Anemia Is this a current diagnosis for this admission?: Yes Plan: Chronic kidney disease. Adjust erythropoietin. Monitor. (5) Bipolar disorder Is this a current diagnosis for this admission?: Yes Plan: Currently stable. (6) Cellulitis, leg Qualifiers: Laterality: unspecified laterality Qualified Code(s): L03.119 - Cellulitis of unspecified part of limb Is this a current diagnosis for this admission?: Yes Plan: Improving and currently off all antibiotics. (7) Scabies Is this a current diagnosis for this admission?: Yes Plan: As per hospitalist. (8) Stasis dermatitis of both legs Is this a current diagnosis for this admission?: Yes Plan: Stable. Some improvement with dialysis. (9) Peripheral vascular disease Is this a current diagnosis for this admission?: Yes Plan: Status quo. As per hospitalist. (10) Nausea and vomiting Plan: Since yesterday. With some coffee-ground emesis. However hemoglobin stable. Management as per hospitalist.
[2019-06-04] MEDS: PANTOPRAZOLE SODIUM 40 MG VIAL IV SCH ×2 (16:12→22:06)
--- NOTE | 2019-06-04 21:54 | Progress Note ---
Provider Note Provider Note: CARDIOLOGY PROGRESS NOTE by Dr. Radha Lara on 06/04/2019. SUBJECTIVE: The patient states last night he had some nausea and vomiting. He also continues to have nausea and. His CAT scan of the abdomen is negative for any acute process. The patient also was said to have coffee-ground emesis. He denies any abdominal pain at present he still has nausea. There is no chest pain or discomfort. There is no arrhythmia seen on the monitor. There is no TIA or CVA symptoms. There is no shortness of breath. There is no PND orthopnea or leg edema. The patient did have dialysis today. In spite of his hearing loss it is possible to communicate effectively with the patient by gestures and by writing on the pad. And also by shouting out loud. PHYSICAL EXAMINATION: The patient appears to be chronically ill. At present in no acute distress. Selected Entries 06/04/19 16:04 Temperature 98.3 F Temperature Oral Source Pulse Rate 69 Respiratory 20 Rate Blood Pressure 122/58 L Blood Pressure 79 Mean BP Location Right Arm BP Position Supine O2 Sat by Pulse 92 Oximetry Oxygen Flow 2.00 Rate Oxygen Delivery Nasal Cannula Method HEAD: Head is atraumatic normocephalic. Eyes: Pupils are equal round regular reactive light accommodation extraocular movements are normal there is no congenital pallor there is no scleral icterus. Ears: External auditory canals are clear, there are no lesions of the pinna. Nose: No deviated nasal septum and no inflammation of the nasal mucous membrane. Mouth: Mucous membranes of mouth are moist tongue is moist there is no ulcers there is no bleeding from the gums. Throat: There is no redness of the oropharynx there is no exudates. Skin: There is no petechia or ecchymosis there is no skin lesions or skin rashes. Neck: Neck is supple there is JVD present. Carotids equal there is no bruit there is no lymphadenopathy there is no neck stiffness. There is no goiter trachea central lungs: Lungs show diminished air entry and prolonged expiration. Scattered rhonchi and wheezing present. There is no no bibasilar rales of CHF. Few dry crackles in the right base. There is no chest wall tenderness. HEART: S1-S2 is heard there is no S3 gallop there is no S4 gallop S1 is of normal intensity. There is no rub. The systolic murmur of MR and TR. There is no prosthetic valve clicks heard. Abdomen: Abdomen is soft, mildly distended, no definite ascites. There is no hepatosplenomegaly. Bowel sounds well heard there is no tender areas of masses. There is no rebound guarding or rigidity. Extremities: Femorals are slightly diminished, there is no bruits. Leg pulses are diminished. There is trace 2- edema, with venous stasis dermatitis. There is no DVT or cellulitis there is no cyanosis or clubbing there is no DVT or cellulitis. There is no calf tenderness. [employer]: The patient is awake alert oriented 3 with no focal deficits. But in spite of this he has slow mentation. Psychiatric: The patient judgment and insight are intact and his affect. Labs- All tests 24 hr 06/04/19 06/04/19 05:25 05:25 WBC 11.1 H RBC 3.85 L Hgb 10.1 L Hct 31.0 L MCV 81 MCH 26.2 L MCHC 32.6 RDW 23.8 H Plt Count 271 Sodium 133.4 L Potassium 4.9 Chloride 93 L Carbon Dioxide 28 Anion Gap 12 BUN 54 H Creatinine 3.95 H Est GFR ( Amer) 19 L Est GFR (MDRD) Non-Af 16 L Glucose 115 H Calcium 8.7 Chest X-Ray 05/12/19 11:53 IMPRESSION: No acute cardiopulmonary process. Chest X-Ray 05/14/19 00:00 IMPRESSION: No acute cardiopulmonary process. Chest X-Ray 05/15/19 15:34 IMPRESSION: Right jugular central line tip SVC. No Pneumothorax Renal Artery Duplex 05/20/19 06:00 IMPRESSION: Nondiagnostic study Chest X-Ray 05/20/19 09:58 IMPRESSION: Pulmonary edema pattern KUB X-Ray 05/23/19 00:00 IMPRESSION: NO RADIOGRAPHIC EVIDENCE FOR ACUTE ABDOMINAL DISEASE. Guidance Fluoroscopy 05/29/19 00:00 IMPRESSION: IMAGE(S) OBTAINED DURING PROCEDURE. Abdomen/Pelvis CT 06/03/19 12:27 IMPRESSION: 1. Basilar lung changes as above. Given history of significant nausea and vomiting, this could be due to aspiration pneumonia. A component of cardiogenic edema is also in the differential. 2. No distended bowel loops to suggest obstruction. There is mild ascites. iMPRESSION/RECOMMENDATION: 1. Acute respiratory failure secondary to combination of acute on chronic systolic heart failure, acute renal failure causing volume overload, acute exacerbation of COPD, and severe pulmonary hypertension, this is immensely improved and the patient is on nasal oxygen and not on BiPAP anymore. 2. Acute on chronic systolic heart failure. Patient has been placed on fluid restriction of 1500 mL each 24 hours. The patient is off inotropes and IV nitroglycerin. He is on topical nitrates and hydralazine. His Entresto has been stopped.. His low blood pressure precludes the reinstituting of ARB or Entresto. His renal artery Dopplers for renal artery stenosis remains negative albeit poor quality study. At present the patient is compensated from his heart failure. 3. Acute exacerbation COPD: This is resolved. 4. Hypertension: At present blood pressure reasonable. 5. Severe pulmonary hypertension: He is on nitrates and hence cannot use sildenafil. Also his blood pressure is low and hence cannot place him on a calcium channel laurie especially in view of associated severe LV dysfunction, and cannot increase the patient's hydralazine due to low blood pressure. Will discuss with nephrology since the patient is on dialysis if ARB daily started instead of the hydralazine. 6. Acute on chronic renal failure. Avoid nephrotoxic drugs. The patient has been started on dialysis, in spite of this patient's renal function is deteriorating. The patient is now dialysis dependent and has reached end-stage renal disease. 7. Bipolar disorder 8. Tobacco abuse disorder. 9 coronary artery disease: History of coronary bypass graft surgery: No angina and troponin so far is not elevated. 10. Peripheral vascular disease: This will be addressed later on. 11. History of valvular repair: Details not available. Try to contact [facility] but they say they have not heard of the patient, and have no records on him. 12. Severe hearing loss: 13. Scabies. This is resolved. Medications reviewed. Medical regimen and management plan discussed with attending physician. Discussed with nephrology. Medical decision making is of moderate complexity. 40 minutes spent as patient more than 50% time spent in direct patient care. Patient awaiting placement in a rehab facility. Will follow.
[2019-06-04] MEDS: QUETIAPINE FUMARATE 300 MG PO SCH (22:00)
[2019-06-04] MEDS: QUETIAPINE FUMARATE 150 MG PO SCH (22:08)
[2019-06-04 22:32] LABS: HEMATOCRIT 31.2 % (37.9-51.0); MEAN CORPUSCULAR VOLUME 81 fl (80-97); PLATELET COUNT 302 10^3/uL (150-450); RED BLOOD COUNT 3.83 10^6/uL (4.35-5.55); RED CELL DISTRIBUTION WIDTH 25.2 % (11.5-14.0); WHITE BLOOD COUNT 12.3 10^3/uL (4.0-10.5)
[2019-06-05] MEDS: HYDRALAZINE HCL 25 MG TABLET PO SCH ×2 (03:25→05:35)
[2019-06-05] MEDS: HEPARIN SOD (PORCINE) 5,000 UNIT/ML 1 ML VIAL SUBCUT SCH ×3 (05:35→22:35)
[2019-06-05] MEDS: ASPIRIN 81 MG TABLET, ENT COATED PO SCH (10:00)
[2019-06-05] MEDS: GABAPENTIN 300 MG CAPSULE PO SCH (10:00)
[2019-06-05] MEDS: PANTOPRAZOLE SODIUM 40 MG VIAL IV SCH ×2 (10:00→22:34)
[2019-06-05] MEDS: NITROGLYCERIN 15 MG (0.6 MG/1 HR) PATCH.TD24 TD SCH (10:00)
[2019-06-05] MEDS: MULTIVITAMIN TABLET PO SCH (10:00)
[2019-06-05] MEDS: THIAMINE HCL 100 MG TABLET PO SCH (10:00)
[2019-06-05] MEDS: VITAMIN B COMPLEX TABLET PO SCH (10:00)
[2019-06-05] MEDS: FLUTICASONE/UMECLIDIN/VILANTER 100-62.5-25 MCG/DOSE IH SCH (10:01)
[2019-06-05] MEDS: ONDANSETRON HCL INJ/PF 4 MG/2 ML SDV IV PRN ×2 (10:05→18:13)
[2019-06-05] MEDS: PAROXETINE HCL 20 MG TABLET PO SCH ×2 (10:06)
[2019-06-05] MEDS: METOPROLOL SUCCINATE 25 MG TAB.SR.24H PO SCH ×2 (10:10→22:35)
--- NOTE | 2019-06-05 11:03 | PDOC PROGRESS REPORT ---
Subjective Progress Note for:: 06/05/19 Subjective:: 06/03/2019: Patient was seen and examined. He complains of nausea and vomiting. CT scan of the abdomen shows no obstruction. Waiting for placement. 06/04/2019: Patient was seen and examined. He continues to vomit. Today he vomited liquid dark emesis. Not tolerating any diet. 06/05/2019: Patient was seen and examined. He tells me that he is feeling better today. He says he tolerated some liquids for breakfast today. His hemoglobin has been stable. Physical examination: Patient is no acute distress Alert oriented to time place person No anxiety or depression Head: atraumatic normocephalic Pupils: are equal reactive Neck: is supple and trachea is central no lymphadenopathy No pharyngeal erythema or exudates Heart: Regular rate and rhythm, no peripheral edema Lungs: clear to auscultation, no respiratory distress Abdomen: nontender nondistended Neurological exam: unremarkable Musculoskeletal: No joint swelling or effusion chronic lower back pain and t enderness. Chronic leg skin changes. No suicidal or homicidal ideation Reason For Visit: HEART FAILURE Physical Exam Vital Signs: Temp Pulse Resp BP Pulse Ox 98.6 F 77 20 114/60 93 06/05/19 08:52 06/05/19 10:27 06/05/19 10:27 06/05/19 08:52 06/05/19 10:28 Pulse Oximeter Continuous Start: 05/31/19 13:23 Freq: RTQ4 Status: Active Protocol: Document 06/05/19 10:28 [facility] (Rec: 06/05/19 10:30 [facility] [email or web address]) Pulse Oximetry Assessment Oxygen Saturation (92-100) 93 Oxygen Flow Rate (L/min) 3 Oxygen Delivery Method Nasal Cannula Equipment Usage Equipment in Use Continuous SpO2 Machine # 1 Intake & Output 06/04/19 06/05/19 06/06/19 06:59 06:59 06:59 Intake Total 580 75 Output Total 500 1775 Balance 80 -1700 Weight 264 lb 1.82 oz 265 lb 3.457 oz Results Laboratory Results: 06/04/19 22:15 06/04/19 05:25 06/04/19 22:15 WBC 12.3 H RBC 3.83 L Hgb 10.0 L Hct 31.2 L MCV 81 MCH 26.0 L MCHC 32.0 RDW 25.2 H Plt Count 302 05/12/19 05/12/19 05/13/19 12:00 18:31 00:16 Creatine Kinase CK-MB (CK-2) Troponin I 0.039 0.041 0.039 NT-Pro-B Natriuret Pep 8970 H 05/13/19 05/14/19 05/19/19 09:35 04:26 17:45 Creatine Kinase 230 H CK-MB (CK-2) 4.88 H Troponin I 0.047 NT-Pro-B Natriuret Pep 54390 H Impressions: Renal Artery Duplex 05/20/19 06:00 IMPRESSION: Nondiagnostic study Chest X-Ray 05/20/19 09:58 IMPRESSION: Pulmonary edema pattern KUB X-Ray 05/23/19 00:00 IMPRESSION: NO RADIOGRAPHIC EVIDENCE FOR ACUTE ABDOMINAL DISEASE. Guidance Fluoroscopy 05/29/19 00:00 IMPRESSION: IMAGE(S) OBTAINED DURING PROCEDURE. Abdomen/Pelvis CT 06/03/19 12:27 IMPRESSION: 1. Basilar lung changes as above. Given history of significant nausea and vomiting, this could be due to aspiration pneumonia. A component of cardiogenic edema is also in the differential. 2. No distended bowel loops to suggest obstruction. There is mild ascites. Assessment and Plan - Plan Summary Summary: (1) Acute respiratory failure with hypoxia Is this a current diagnosis for this admission?: Yes (2) Bipolar disorder Is this a current diagnosis for this admission?: Yes (3) Foot ulcer, right Qualifiers: Non-pressure ulcer stage: unspecified non-pressure ulcer stage Qualified Code(s): L97.519 - Non-pressure chronic ulcer of other part of right foot with unspecified severity Is this a current diagnosis for this admission?: Yes (4) Lactic acidosis Is this a current diagnosis for this admission?: Yes (5) Abdominal pain Qualifiers: Abdominal location: epigastric Qualified Code(s): R10.13 - Epigastric pain Is this a current diagnosis for this admission?: Yes (6) Acute combined systolic and diastolic congestive heart failure, NYHA class 4 Is this a current diagnosis for this admission?: Yes (7) Acute renal failure superimposed on stage 3 chronic kidney disease Is this a current diagnosis for this admission?: Yes (8) COPD (chronic obstructive pulmonary disease) Qualifiers: COPD type: COPD with acute exacerbation Qualified Code(s): J44.1 - Chronic obstructive pulmonary disease with (acute) exacerbation Is this a current diagnosis for this admission?: Yes (9) Elevated troponin Is this a current diagnosis for this admission?: Yes (10) Hypertension Qualifiers: Hypertension type: essential hypertension Qualified Code(s): I10 - Essential (primary) hypertension Is this a current diagnosis for this admission?: Yes (11) Venous stasis Is this a current diagnosis for this admission?: Yes (12) Scabies Is this a current diagnosis for this admission?: Yes Palliative care consulted given patient's multiple comorbidities and overall poor functional state. 05/30/2019 Patient completed his dialysis today unfortunately he was not able to be transferred to senior care facility because he was rejected at [facility] Patient has also been rejected at [facility] Patient will need dialysis once discharged from the hospital Today's BUN is 65 creatinine 6.34 Calcium 8.6 Cultures have showed no growth in 5 days Wound culture from right foot grew out staph aureus but this is been 18 days ago Patient is currently on no antibiotics Patient had a right permacath placed on 05/29/2019 05/31/2019 Sleeping but arouses easily Hemodynamically stable temperature 97.8 pulse 62, blood pressure 126/55, Patient's oxygen saturations are in the mid 90s but requires 5 L of nasal cannula. FiO2 of 40% Try to wean patient down to 3 L. If we cannot do this successfully I will repeat a blood gas Patient did receive hemodialysis yesterday Patient waiting usp placement 06/01/2019 Patient is very much awake and alert and conversant. Oriented. Patient tells me this morning that he wants to go to a rehab unit when he is discharge. He shows me a brochure from [facility] Patient's vital signs are extremely stable. Will however need oxygen at 2-3 L at the time of discharge He will need no antibiotics at time of discharge. Patient will need to continue dialysis per nephrology's suggestions Patient's white count is down to 11,000, recent arterial blood gas is basically normal, last set of blood cultures were negative x5 days Patient is stable for discharge to facility 06/02/2019 Patient will possibly get a bed offer at [facility] Patient is undergoing dialysis on Sunday No indication for antibiotics Neurologically intact Labs are stable as one would expect for a dialysis patient Patient is able to maintain oxygen saturations in the upper 90s on 2 L nasal cannula. I suspect he could even gradually be weaned lower time permitting 06/03/2019 Complains of nausea and vomiting. CT scan of the abdomen pelvis negative for any bowel obstruction. Still awaiting placement. Continue current medications. 06/04/2019 Persistent vomiting. Today he threw up dark liquid emesis. Will start IV Protonix 40 mg twice daily. Consult surgery for possible EGD. Monitor H&H and transfuse if needed. 06/05/2019 Nausea and vomiting appears to be improving. He said he tolerated some liquids this morning for breakfast. Hemoglobin has been stable. Pending surgery evaluation for possible EGD.
[2019-06-05] MEDS: FUROSEMIDE 40 MG TABLET PO SCH ×2 (13:49→18:01)
[2019-06-05] MEDS: MINERAL OIL/PETROLATUM,WHITE CREAM 114 GM TP SCH (18:02)
--- NOTE | 2019-06-05 19:00 | Progress Note ---
Provider Note Provider Note: CARDIOLOGY PROGRESS NOTE by Dr. Radha Salmon on 06/05/2019. OBJECTIVE: The patient denies any chest pain or discomfort. There is no shortness of breath. There is no PND orthopnea. There is no TIA CVA symptoms. There is no arrhythmia seen. Physical EXAMINATION: Patient appears to be chronically ill. In no acute distress. Selected Entries 06/05/19 15:34 Temperature 98.1 F Temperature Oral Source Pulse Rate 76 Respiratory 20 Rate Blood Pressure 114/66 Blood Pressure 82 Mean BP Location Right Arm BP Position Supine O2 Sat by Pulse 94 Oximetry Oxygen Flow 3.00 Rate Oxygen Delivery Nasal Cannula Method HEAD: Head is atraumatic normocephalic. Eyes: Pupils are equal round regular reactive light accommodation extraocular movements are normal there is no congenital pallor there is no scleral icterus. Ears: External auditory canals are clear, there are no lesions of the pinna. Nose: No deviated nasal septum and no inflammation of the nasal mucous membrane. Mouth: Mucous membranes of mouth are moist tongue is moist there is no ulcers there is no bleeding from the gums. Throat: There is no redness of the oropharynx there is no exudates. Skin: There is no petechia or ecchymosis there is no skin lesions or skin rashes. Neck: Neck is supple there is JVD present. Carotids equal there is no bruit there is no lymphadenopathy there is no neck stiffness. There is no goiter trachea central lungs: Lungs show diminished air entry and prolonged expiration. Scattered rhonchi and wheezing present. There is no no bibasilar rales of CHF. Few dry crackles in the right base. There is no chest wall tenderness. HEART: S1-S2 is heard there is no S3 gallop there is no S4 gallop S1 is of normal intensity. There is no rub. The systolic murmur of MR and TR. There is no prosthetic valve clicks heard. Abdomen: Abdomen is soft, mildly distended, no definite ascites. There is no hepatosplenomegaly. Bowel sounds well heard there is no tender areas of masses. There is no rebound guarding or rigidity. Extremities: Femorals are slightly diminished, there is no bruits. Leg pulses are diminished. There is trace 2- edema, with venous stasis dermatitis. There is no DVT or cellulitis there is no cyanosis or clubbing there is no DVT or cellulitis. There is no calf tenderness. 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 But in spite of this he has slow mentation. Psychiatric: The patient judgment and insight are intact and his affect. Chest X-Ray 05/12/19 11:53 IMPRESSION: No acute cardiopulmonary process. Chest X-Ray 05/14/19 00:00 IMPRESSION: No acute cardiopulmonary process. Chest X-Ray 05/15/19 15:34 IMPRESSION: Right jugular central line tip SVC. No Pneumothorax Renal Artery Duplex 05/20/19 06:00 IMPRESSION: Nondiagnostic study Chest X-Ray 05/20/19 09:58 IMPRESSION: Pulmonary edema pattern KUB X-Ray 05/23/19 00:00 IMPRESSION: NO RADIOGRAPHIC EVIDENCE FOR ACUTE ABDOMINAL DISEASE. Guidance Fluoroscopy 05/29/19 00:00 IMPRESSION: IMAGE(S) OBTAINED DURING PROCEDURE. Abdomen/Pelvis CT 06/03/19 12:27 IMPRESSION: 1. Basilar lung changes as above. Given history of significant nausea and vomiting, this could be due to aspiration pneumonia. A component of cardiogenic edema is also in the differential. 2. No distended bowel loops to suggest obstruction. There is mild ascites. iMPRESSION/RECOMMENDATION: 1. Acute respiratory failure secondary to combination of acute on chronic systolic heart failure, acute renal failure causing volume overload, acute exacerbation of COPD, and severe pulmonary hypertension, this is immensely improved and the patient is on nasal oxygen and not on BiPAP anymore. 2. Acute on chronic systolic heart failure. Patient has been placed on fluid restriction of 1500 mL each 24 hours. The patient is off inotropes and IV nitroglycerin. He is on topical nitrates and hydralazine. His Entresto has been stopped.. His low blood pressure precludes the reinstituting of ARB or Entresto. His renal artery Dopplers for renal artery stenosis remains negative albeit poor quality study. At present the patient is compensated from his heart failure. 3. Acute exacerbation COPD: This is resolved. 4. Hypertension: At present blood pressure reasonable. 5. Severe pulmonary hypertension: He is on nitrates and hence cannot use sildenafil. Also his blood pressure is low and hence cannot place him on a calcium channel laurie especially in view of associated severe LV dysfunction, and cannot increase the patient's hydralazine due to low blood pressure. Will discuss with nephrology since the patient is on dialysis if ARB daily started instead of the hydralazine. 6. Acute on chronic renal failure. Avoid nephrotoxic drugs. The patient has been started on dialysis, in spite of this patient's renal function is deteriorating. The patient is now dialysis dependent and has reached end-stage renal disease. 7. Bipolar disorder 8. Tobacco abuse disorder. 9 coronary artery disease: History of coronary bypass graft surgery: No angina and troponin so far is not elevated. 10. Peripheral vascular disease: This will be addressed later on. 11. History of valvular repair: Details not available. Try to contact but they say they have not heard of the patient, and have no records on him. 12. Severe hearing loss: 13. Scabies. This is resolved. Medications reviewed. Medical regimen and management plan discussed with attending physician. Discussed with nephrology. Medical decision making is of moderate complexity. 40 minutes spent as patient more than 50% time spent in direct patient care. Patient awaiting placement in a rehab facility. Will follow.
[2019-06-05] MEDS: QUETIAPINE FUMARATE 300 MG PO SCH (22:33)
[2019-06-05] MEDS: QUETIAPINE FUMARATE 150 MG PO SCH (22:34)
[2019-06-06] MEDS: HEPARIN SOD (PORCINE) 5,000 UNIT/ML 1 ML VIAL SUBCUT SCH ×3 (05:59→22:26)
[2019-06-06 06:32] LABS: HEMATOCRIT 27.2 % (37.9-51.0); HEMOGLOBIN 8.8 g/dL (13.5-17.0); MEAN CORPUSCULAR HEMOGLOBIN 26.4 pg (27.0-33.4); MEAN CORPUSCULAR HGB CONC 32.5 g/dL (32.0-36.0); MEAN CORPUSCULAR VOLUME 81 fl (80-97); PLATELET COUNT 295 10^3/uL (150-450); RED BLOOD COUNT 3.35 10^6/uL (4.35-5.55); RED CELL DISTRIBUTION WIDTH 26.4 % (11.5-14.0); WHITE BLOOD COUNT 6.9 10^3/uL (4.0-10.5)
[2019-06-06] MEDS ORDERED: PANTOPRAZOLE SODIUM 40 MG VIAL IV ONE ×2 (06:52→08:00)
[2019-06-06 06:53] LABS: ANION GAP 9 (5-19); BLOOD UREA NITROGEN 40 mg/dL (7-20); CALCIUM 8.7 mg/dL (8.4-10.2); CARBON DIOXIDE 29 mmol/L (22-30); CHLORIDE 96 mmol/L (98-107); GLUCOSE 90 mg/dL (75-110); POTASSIUM 4.4 mmol/L (3.6-5.0)
[2019-06-06] MEDS ORDERED: DESMOPRESSIN ACETATE INJ 4 MCG/1 ML AMPULE ONE (06:53)
[2019-06-06] MEDS ORDERED: EPOETIN ALFA-EPBX 2,000 UNIT, EPOETIN ALFA-EPBX 3,000 UNIT, EPOETIN ALFA-EPBX 20,000 UN... IV PRN ×4 (07:12)
[2019-06-06] MEDS ORDERED: HEPARIN SOD (PORCINE) 1,000 UNIT/ML 10 ML VIAL IV PRN (07:12)
[2019-06-06] MEDS: DESMOPRESSIN ACETATE INJ 4 MCG/1 ML AMPULE ONE ×2 (07:14→08:05)
[2019-06-06 07:27] LABS: ARTERIAL BLOOD BASE EXCESS 4.2 mmol/L; ARTERIAL BLOOD FIO2 45%; ARTERIAL BLOOD HCO3 29.3 mmol/L (20-24); ARTERIAL BLOOD PCO2 46.5 mmHg (35-45); ARTERIAL BLOOD PH 7.42 (7.35-7.45); ARTERIAL BLOOD PO2 91.4 mmHg (80-100); ARTERIAL BLOOD TOTAL CO2 30.8 mmol/L (23-27)
[2019-06-06 07:30] LABS: INTERNATIONAL RATION (INR) 1.22; PROTHROMBIN TIME 15.5 SEC (11.4-15.4)
[2019-06-06 07:51] LABS: CREATINE KINASE MB 1.21 ng/mL (<4.55); TROPONIN I 0.016 ng/mL
[2019-06-06] MEDS ORDERED: DESMOPRESSIN ACETATE INJ 4 MCG/1 ML AMPULE IV ONE (08:00)
--- NOTE | 2019-06-06 11:15 | EKG REPORT ---
SEVERITY:- ABNORMAL ECG - SINUS RHYTHM ATRIAL PREMATURE COMPLEX LAFB. LVH WITH SECONDARY REPOLARIZATION ABNORMALITY CONSIDER ANTERIOR INFARCT QTC PROLONGATION. : Confirmed by: Alvaro Bowden MD 06-Jun-2019 11:15:22
--- NOTE | 2019-06-06 11:49 | PDOC PROGRESS REPORT ---
Subjective Progress Note for:: 06/06/19 Subjective:: 06/03/2019: Patient was seen and examined. He complains of nausea and vomiting. CT scan of the abdomen shows no obstruction. Waiting for placement. 06/04/2019: Patient was seen and examined. He continues to vomit. Today he vomited liquid dark emesis. Not tolerating any diet. 06/05/2019: Patient was seen and examined. He tells me that he is feeling better today. He says he tolerated some liquids for breakfast today. His hemoglobin has been stable. 06/06/2019: Patient was seen and examined. He had hemoptysis last night and short run of V. tach. He is on nasal cannula oxygen. Hemoglobin dropped today. Dr. Barker electrolytes ordered blood transfusion. Discussed with Dr. Falk from surgery who is going to do EGD today. Dr. Barker transferred the patient to the ICU which I agree with. Dr. Vidal declined the transfer. I discussed with him over the phone. Physical examination: Patient is no acute distress Alert oriented to time place person No anxiety or depression Head: atraumatic normocephalic Pupils: are equal reactive Neck: is supple and trachea is central no lymphadenopathy No pharyngeal erythema or exudates Heart: Regular rate and rhythm, no peripheral edema Lungs: clear to auscultation, no respiratory distress Abdomen: nontender nondistended Neurological exam: unremarkable Musculoskeletal: No joint swelling or effusion chronic lower back pain and tenderness. Chronic leg skin changes. No suicidal or homicidal ideation Reason For Visit: HEART FAILURE Physical Exam Vital Signs: Temp Pulse Resp BP Pulse Ox 97.4 F 69 20 131/56 H 97 06/06/19 10:06 06/06/19 10:06 06/06/19 10:06 06/06/19 10:06 06/06/19 10:06 Pulse Oximeter Continuous Start: 05/31/19 13:23 Freq: RTQ4 Status: Active Protocol: Document 06/06/19 08:00 [facility] (Rec: 06/06/19 08:54 [facility] [email or web address]) Pulse Oximetry Assessment Oxygen Saturation (92-100) 98 Oxygen Flow Rate (L/min) 3.5 Oxygen Delivery Method Nasal Cannula Fraction of Inspired Oxygen (FIO2) 32 Equipment Usage Equipment in Use Continuous SpO2 Machine # 1 Intake & Output 06/05/19 06/06/19 06/07/19 06:59 06:59 06:59 Intake Total 75 755 0 Output Total 1775 575 Balance -1700 180 0 Weight 265 lb 3.457 oz 264 lb 12.403 oz Results Laboratory Results: 06/06/19 06:12 06/06/19 06:12 06/06/19 06/06/19 06/06/19 06:12 06:12 06:53 WBC 6.9 RBC 3.35 L Hgb 8.8 L Hct 27.2 L MCV 81 MCH 26.4 L MCHC 32.5 RDW 26.4 H Plt Count 295 Carbonic Acid HCO3/H2CO3 Ratio ABG pH ABG pCO2 ABG pO2 ABG HCO3 ABG O2 Saturation ABG Base Excess FiO2 Sodium 133.9 L Potassium 4.4 Chloride 96 L Carbon Dioxide 29 Anion Gap 9 BUN 40 H Creatinine 2.71 H Est GFR ( Amer) 29 L Glucose 90 Calcium 8.7 Blood Type A POSITIVE Antibody Screen NEGATIVE 06/06/19 06:53 WBC RBC Hgb Hct MCV MCH MCHC RDW Plt Count Carbonic Acid 1.40 H HCO3/H2CO3 Ratio 20:1 ABG pH 7.42 ABG pCO2 46.5 H ABG pO2 91.4 ABG HCO3 29.3 H ABG O2 Saturation 97.0 ABG Base Excess 4.2 FiO2 45% Sodium Potassium Chloride Carbon Dioxide Anion Gap BUN Creatinine Est GFR ( Amer) Glucose Calcium Blood Type Antibody Screen 05/12/19 05/12/19 05/13/19 12:00 18:31 00:16 Creatine Kinase CK-MB (CK-2) Troponin I 0.039 0.041 0.039 NT-Pro-B Natriuret Pep 8970 H 05/13/19 05/14/19 05/19/19 09:35 04:26 17:45 Creatine Kinase 230 H CK-MB (CK-2) 4.88 H Troponin I 0.047 NT-Pro-B Natriuret Pep 45371 H 06/06/19 06/06/19 07:03 07:03 Creatine Kinase < 20 L CK-MB (CK-2) 1.21 Troponin I 0.016 NT-Pro-B Natriuret Pep Impressions: Renal Artery Duplex 05/20/19 06:00 IMPRESSION: Nondiagnostic study Chest X-Ray 05/20/19 09:58 IMPRESSION: Pulmonary edema pattern KUB X-Ray 05/23/19 00:00 IMPRESSION: NO RADIOGRAPHIC EVIDENCE FOR ACUTE ABDOMINAL DISEASE. Guidance Fluoroscopy 05/29/19 00:00 IMPRESSION: IMAGE(S) OBTAINED DURING PROCEDURE. Abdomen/Pelvis CT 06/03/19 12:27 IMPRESSION: 1. Basilar lung changes as above. Given history of significant nausea and vomiting, this could be due to aspiration pneumonia. A component of cardiogenic edema is also in the differential. 2. No distended bowel loops to suggest obstruction. There is mild ascites. Assessment and Plan - Plan Summary Summary: (1) Acute respiratory failure with hypoxia Is this a current diagnosis for this admission?: Yes (2) Bipolar disorder Is this a current diagnosis for this admission?: Yes (3) Foot ulcer, right Qualifiers: Non-pressure ulcer stage: unspecified non-pressure ulcer stage Qualified Code(s): L97.519 - Non-pressure chronic ulcer of other part of right foot with unspecified severity Is this a current diagnosis for this admission?: Yes (4) Lactic acidosis Is this a current diagnosis for this admission?: Yes (5) Abdominal pain Qualifiers: Abdominal location: epigastric Qualified Code(s): R10.13 - Epigastric pain Is this a current diagnosis for this admission?: Yes (6) Acute combined systolic and diastolic congestive heart failure, NYHA class 4 Is this a current diagnosis for this admission?: Yes (7) Acute renal failure superimposed on stage 3 chronic kidney disease Is this a current diagnosis for this admission?: Yes (8) COPD (chronic obstructive pulmonary disease) Qualifiers: COPD type: COPD with acute exacerbation Qualified Code(s): J44.1 - Chronic obstructive pulmonary disease with (acute) exacerbation Is this a current diagnosis for this admission?: Yes (9) Elevated troponin Is this a current diagnosis for this admission?: Yes (10) Hypertension Qualifiers: Hypertension type: essential hypertension Qualified Code(s): I10 - Essential (primary) hypertension Is this a current diagnosis for this admission?: Yes (11) Venous stasis Is this a current diagnosis for this admission?: Yes (12) Scabies Is this a current diagnosis for this admission?: Yes Palliative care consulted given patient's multiple comorbidities and overall poor functional state. 05/30/2019 Patient completed his dialysis today unfortunately he was not able to be transferred to longterm facility because he was rejected at [facility] Patient has also been rejected at [facility] Patient will need dialysis once discharged from the hospital Today's BUN is 65 creatinine 6.34 Calcium 8.6 Cultures have showed no growth in 5 days Wound culture from right foot grew out staph aureus but this is been 18 days ago Patient is currently on no antibiotics Patient had a right permacath placed on 05/29/2019 05/31/2019 Sleeping but arouses easily Hemodynamically stable temperature 97.8 pulse 62, blood pressure 126/55, Patient's oxygen saturations are in the mid 90s but requires 5 L of nasal cannula. FiO2 of 40% Try to wean patient down to 3 L. If we cannot do this successfully I will repeat a blood gas Patient did receive hemodialysis yesterday Patient waiting detention placement 06/01/2019 Patient is very much awake and alert and conversant. Oriented. Patient tells me this morning that he wants to go to a rehab unit when he is discharge. He shows me a brochure from [facility] Patient's vital signs are extremely stable. Will however need oxygen at 2-3 L at the time of discharge He will need no antibiotics at time of discharge. Patient will need to continue dialysis per nephrology's suggestions Patient's white count is down to 11,000, recent arterial blood gas is basically normal, last set of blood cultures were negative x5 days Patient is stable for discharge to facility 06/02/2019 Patient will possibly get a bed offer at [facility] Patient is undergoing dialysis on Sunday No indication for antibiotics Neurologically intact Labs are stable as one would expect for a dialysis patient Patient is able to maintain oxygen saturations in the upper 90s on 2 L nasal cannula. I suspect he could even gradually be weaned lower time permitting 06/03/2019 Complains of nausea and vomiting. CT scan of the abdomen pelvis negative for any bowel obstruction. Still awaiting placement. Continue current medications. 06/04/2019 Persistent vomiting. Today he threw up dark liquid emesis. Will start IV Protonix 40 mg twice daily. Consult surgery for possible EGD. Monitor H&H and transfuse if needed. 06/05/2019 Nausea and vomiting appears to be improving. He said he tolerated some liquids this morning for breakfast. Hemoglobin has been stable. Pending surgery evaluation for possible EGD. 06/06/2019 Hemoptysis and acute blood loss anemia. Blood transfusion ordered by Dr. Barker. EGD planned by Dr. Issa. Dr. Vidal saw and examined the patient and declined admission to the ICU. Patient is high risk for decompensation. I prefer for him to be transferred to the ICU but Dr. Vidal declined.
[2019-06-06 12:44] LABS: HEMATOCRIT 27.7 % (37.9-51.0); HEMOGLOBIN 9.2 g/dL (13.5-17.0); MEAN CORPUSCULAR HEMOGLOBIN 26.9 pg (27.0-33.4); MEAN CORPUSCULAR HGB CONC 33.1 g/dL (32.0-36.0); MEAN CORPUSCULAR VOLUME 81 fl (80-97); PLATELET COUNT 303 10^3/uL (150-450); RED CELL DISTRIBUTION WIDTH 25.2 % (11.5-14.0); WHITE BLOOD COUNT 6.7 10^3/uL (4.0-10.5)
[2019-06-06 13:03] LABS: ALBUMIN 2.8 g/dL (3.5-5.0); ALKALINE PHOSPHATASE 245 U/L (38-126); ANION GAP 9 (5-19); ASPARTATE AMINO TRANSFERASE 15 U/L (17-59); BILIRUBIN,DIRECT 0.8 mg/dL (0.0-0.4); BILIRUBIN,TOTAL 1.8 mg/dL (0.2-1.3); BLOOD UREA NITROGEN 40 mg/dL (7-20); CALCIUM 8.6 mg/dL (8.4-10.2); CARBON DIOXIDE 30 mmol/L (22-30); CHLORIDE 96 mmol/L (98-107); GLUCOSE 94 mg/dL (75-110); POTASSIUM 4.5 mmol/L (3.6-5.0); TOTAL PROTEIN 6.2 g/dL (6.3-8.2)
[2019-06-06] MEDS ORDERED: LIDOCAINE 2% INJ-PF (100 MG/5 ML) SYRINGE ONE (13:15)
[2019-06-06 13:16] LABS: CREATINE KINASE MB 1.11 ng/mL (<4.55); TROPONIN I 0.015 ng/mL
[2019-06-06] MEDS ORDERED: MIDAZOLAM 2 MG/2 ML INJ ONE (13:16)
[2019-06-06] MEDS ORDERED: PROPOFOL INJ 200 MG/20 ML VIAL IV ONE (13:16)
[2019-06-06] MEDS: GABAPENTIN 300 MG CAPSULE PO SCH (14:03)
[2019-06-06] MEDS: FUROSEMIDE 40 MG TABLET PO SCH ×2 (14:03→17:13)
[2019-06-06] MEDS: MINERAL OIL/PETROLATUM,WHITE CREAM 114 GM TP SCH (14:03)
[2019-06-06] MEDS: NITROGLYCERIN 15 MG (0.6 MG/1 HR) PATCH.TD24 TD SCH (14:03)
[2019-06-06] MEDS: ASPIRIN 81 MG TABLET, ENT COATED PO SCH (14:03)
[2019-06-06] MEDS: MULTIVITAMIN TABLET PO SCH (14:04)
[2019-06-06] MEDS: PAROXETINE HCL 20 MG TABLET PO SCH ×2 (14:04)
[2019-06-06] MEDS: THIAMINE HCL 100 MG TABLET PO SCH (14:05)
[2019-06-06] MEDS: VITAMIN B COMPLEX TABLET PO SCH (14:05)
[2019-06-06] MEDS: FLUTICASONE/UMECLIDIN/VILANTER 100-62.5-25 MCG/DOSE IH SCH (14:05)
[2019-06-06] MEDS: METOPROLOL SUCCINATE 25 MG TAB.SR.24H PO SCH ×2 (14:05→22:30)
--- NOTE | 2019-06-06 14:53 | PDOC CONSULTATION ---
Consultation Consult Date: 06/06/19 Provider Consulted: ELISA BOSWELL History of Present Illness Admission Date/PCP: 05/12/19 14:02 LISSETTE CASTRO MD History of Present Illness: JUJU ANDRADE is a 58 year old male currently in the hospital for management of systolic heart failure and COPD. Patient has been noted with some epigastric abdominal pain over the past several days and today he was noted with emesis of about 100 cc of bloody fluid. No known history of melena. He denies any alcohol abuse nor NSAID abuse in the past. But the patient is a poor historian. Patient denies any abdominal pain at this time. Patient did have a CT scan of the abdomen earlier this week which did not show any significant abdominal fi ndings other than mild ascites which certainly could be due to his congestive heart failure. Past Medical History Cardiac Medical History: Reports: Congestive Heart Failure, Coronary Artery Disease, Hyperlipidema, Hypertension Pulmonary Medical History: Reports: Chronic Obstructive Pulmonary Disease (COPD), Respiratory Failure EENT Medical History: Reports: None Neurological Medical History: Reports: None Endocrine Medical History: Reports: Obesity Renal/ Medical History: Reports: Chronic Kidney Disease GI Medical History: Reports: Gastroesophageal Reflux Disease Musculoskeltal Medical History: Reports: Arthritis Skin Medical History: Reports: None Psychiatric Medical History: Reports: Bipolar Disorder Traumatic Medical History: Reports: None Hematology: Reports: None Infectious Medical History: Reports: None Past Surgical History Past Surgical History: Reports: Coronary Artery Bypass Graft, Valve Replacement Social History Lives with: Alone Smoking Status: Current Every Day Smoker Cigarettes Packs Per Day: 1 Electronic Cigarette use?: Yes Last Time Smoked: 45 Frequency of Alcohol Use: None Hx Recreational Drug Use: No Hx Prescription Drug Abuse: No - Advance Directive Resuscitation Status: Full Code Family History Family History: Reviewed & Not Pertinent Parental Family History Reviewed: No Children Family History Reviewed: No Sibling(s) Family History Reviewed.: No Medication/Allergy Home Medications: Albuterol Sulfate [Ventolin Hfa 8 gm Mdi] 2 puff IH Q6HP PRN 04/30/19 Furosemide [Lasix 40 mg Tablet] 40 mg PO BID 04/30/19 Omeprazole Magnesium [Prilosec Otc] 40 mg PO DAILY 04/30/19 Paroxetine HCl [Paxil] 10 mg PO DAILY 04/30/19 Quetiapine Fumarate [Quetiapine Fumarate ER] 300 mg PO QPM 04/30/19 Ranitidine HCl [Heartburn Relief] 150 mg PO BID 04/30/19 Rivaroxaban [Xarelto] 2.5 mg PO Q12 04/30/19 Sacubitril/Valsartan [Entresto 24 mg/26 mg Tablet] 1 tab PO Q12 04/30/19 Thiamine HCl [Thiamine 100 mg Tablet] 100 mg PO DAILY 04/30/19 Hydroxyzine Pamoate [Vistaril 25 mg Capsule] 25 mg PO QHS 05/12/19 Multivitamin/Iron/Folic Acid [Centrum Adults Tablet] 1 each PO DAILY 05/12/19 Paroxetine HCl [Paxil] 40 mg PO DAILY 05/12/19 Quetiapine Fumarate [Seroquel Xr] 150 mg PO QPM 05/12/19 Vitamin B Complex/Folic Acid [B-Complex Tablet] 1 tab PO DAILY 05/12/19 Allergies/Adverse Reactions: risperidone [From Risperdal] Allergy (Verified 04/30/19 12:35) trazodone Allergy (Verified 04/30/19 12:35) Physical Exam Vital Signs: Temp Pulse Resp BP Pulse Ox 97.7 F 69 20 146/72 H 96 06/06/19 12:01 06/06/19 12:01 06/06/19 12:01 06/06/19 12:01 06/06/19 12:01 Pulse Oximeter Continuous Start: 05/31/19 13:23 Freq: RTQ4 Status: Active Protocol: Document 06/06/19 08:00 [facility] (Rec: 06/06/19 08:54 [facility] [id number]) Pulse Oximetry Assessment Oxygen Saturation (92-100) 98 Oxygen Flow Rate (L/min) 3.5 Oxygen Delivery Method Nasal Cannula Fraction of Inspired Oxygen (FIO2) 32 Equipment Usage Equipment in Use Continuous SpO2 Machine # 1 Intake & Output 06/05/19 06/06/19 06/07/19 06:59 06:59 06:59 Intake Total 75 755 0 Output Total 1775 575 Balance -1700 180 0 Weight 120.3 kg 120.1 kg General appearance: PRESENT: no acute distress, cooperative Respiratory exam: PRESENT: clear to auscultation torsten Cardiovascular exam: PRESENT: RRR GI/Abdominal exam: PRESENT: other - Soft, nondistended, nontender to palpation. I do not appreciate hepatosplenomegaly. Results Laboratory Results: 06/06/19 06:12 06/06/19 06:12 06/06/19 06/06/19 06/06/19 06:12 06:12 06:53 WBC 6.9 RBC 3.35 L Hgb 8.8 L Hct 27.2 L MCV 81 MCH 26.4 L MCHC 32.5 RDW 26.4 H Plt Count 295 Carbonic Acid HCO3/H2CO3 Ratio ABG pH ABG pCO2 ABG pO2 ABG HCO3 ABG O2 Saturation ABG Base Excess FiO2 Sodium 133.9 L Potassium 4.4 Chloride 96 L Carbon Dioxide 29 Anion Gap 9 BUN 40 H Creatinine 2.71 H Est GFR ( Amer) 29 L Glucose 90 Calcium 8.7 Blood Type A POSITIVE Antibody Screen NEGATIVE 06/06/19 06:53 WBC RBC Hgb Hct MCV MCH MCHC RDW Plt Count Carbonic Acid 1.40 H HCO3/H2CO3 Ratio 20:1 ABG pH 7.42 ABG pCO2 46.5 H ABG pO2 91.4 ABG HCO3 29.3 H ABG O2 Saturation 97.0 ABG Base Excess 4.2 FiO2 45% Sodium Potassium Chloride Carbon Dioxide Anion Gap BUN Creatinine Est GFR ( Amer) Glucose Calcium Blood Type Antibody Screen 05/12/19 05/12/19 05/13/19 12:00 18:31 00:16 Creatine Kinase CK-MB (CK-2) Troponin I 0.039 0.041 0.039 NT-Pro-B Natriuret Pep 8970 H 05/13/19 05/14/19 05/19/19 09:35 04:26 17:45 Creatine Kinase 230 H CK-MB (CK-2) 4.88 H Troponin I 0.047 NT-Pro-B Natriuret Pep 83889 H 06/06/19 06/06/19 07:03 07:03 Creatine Kinase < 20 L CK-MB (CK-2) 1.21 Troponin I 0.016 NT-Pro-B Natriuret Pep Impressions: Renal Artery Duplex 05/20/19 06:00 IMPRESSION: Nondiagnostic study Chest X-Ray 05/20/19 09:58 IMPRESSION: Pulmonary edema pattern KUB X-Ray 05/23/19 00:00 IMPRESSION: NO RADIOGRAPHIC EVIDENCE FOR ACUTE ABDOMINAL DISEASE. Guidance Fluoroscopy 05/29/19 00:00 IMPRESSION: IMAGE(S) OBTAINED DURING PROCEDURE. Abdomen/Pelvis CT 06/03/19 12:27 IMPRESSION: 1. Basilar lung changes as above. Given history of significant nausea and vomiting, this could be due to aspiration pneumonia. A component of cardiogenic edema is also in the differential. 2. No distended bowel loops to suggest obstruction. There is mild ascites. Assessment & Plan - Diagnosis (1) Upper gastrointestinal bleed Is this a current diagnosis for this admission?: Yes Plan: An episode of hematemesis today. It appears hemodynamically stable. We will plan upper endoscopy today. I have discussed with the patient the risk and benefits of the procedure including risk of aspiration, infection, bleeding, intestinal injury. Patient understands and agrees to proceed.
--- NOTE | 2019-06-06 14:53 | Operative Report ---
Operative Report DATE OF SURGERY: 06/06/19 PREOPERATIVE DIAGNOSIS: Hematemesis. POSTOPERATIVE DIAGNOSIS: Esophagitis. Distal esophageal polyp. OPERATION: Esophagogastroduodenoscopy with distal esophageal polyp biopsy. SURGEON: ELISA BOSWELL ANESTHESIA: GA TISSUE REMOVED OR ALTERED: Distal esophageal polypoid lesion. COMPLICATIONS: None ESTIMATED BLOOD LOSS: Minimal INTRAOPERATIVE FINDINGS: Normal-appearing gastric mucosa with no blood and normal-appearing duodenum with no ulcerations and no blood. Esophagus with erosions consistent with esophagitis. Very distal esophagus with polypoid-like protrusion about a centimeter. no evidence of varices. PROCEDURE: Informed consent was obtained. Patient was brought to the operating room. Procedure was done under LMAC. Endoscope was passed via the patient's mouth it was fed to the second portion duodenum. Duodenum appeared to be normal with no blood and no erosions and no ulcerations. The gastric mucosa appeared normal with no ulcers no erosions no blood. Retroflexed view demonstrated no evidence of Magaly-Mccord tear. At the very distal esophagus near the gastroesophageal junction there was a polypoid-like lesion about a centimeter in size. It did not appear suspicious for malignancy but it was biopsied. It has some oozing after the biopsy. Patient had erosions of his esophagus but no active bleeding. The air was desufflated and the scope withdrawn. Patient tolerated procedure well with no apparent complications. Patient likely with gastroesophageal reflux disease and esophagitis. Recommend proton pump inhibitor therapy. Patient does have a polypoid-like lesion at this distal esophagus that was biopsied. It did not appear grossly suspicious for malignancy but will await biopsy result.
--- NOTE | 2019-06-06 17:56 | PDOC PROGRESS REPORT ---
Subjective Progress Note for:: 06/06/19 Reason For Visit: Patient seen today in the ICU for dialysis. Patient has been transferred now to ICU for dialysis since he had episode of hematemesis this morning with a two-point drop in hemoglobin.Status post upper GI endoscopy which shows erosive esophagitis with no peptic ulcer disease. Patient looks comfortable in no distress. Dialysis proceeding well. Labs and medications were reviewed. Physical Exam Vital Signs: Temp Pulse Resp BP Pulse Ox 97.4 F 71 15 158/74 H 99 06/06/19 15:54 06/06/19 15:54 06/06/19 15:54 06/06/19 15:54 06/06/19 15:39 Pulse Oximeter Continuous Start: 05/31/19 13:23 Freq: RTQ4 Status: Active Protocol: Document 06/06/19 12:00 [facility] (Rec: 06/06/19 12:08 [facility] [id number]) Pulse Oximetry Assessment Oxygen Saturation (92-100) 96 Oxygen Flow Rate (L/min) 4 Oxygen Delivery Method Nasal Cannula Fraction of Inspired Oxygen (FIO2) 36 Equipment Usage Equipment in Use Continuous SpO2 Machine # 1 Intake & Output 06/05/19 06/06/19 06/07/19 06:59 06:59 06:59 Intake Total 75 755 600 Output Total 1775 575 300 Balance -1700 180 300 Weight 120.3 kg 120.1 kg General appearance: PRESENT: no acute distress Respiratory exam: PRESENT: clear to auscultation torsten, decreased breath sounds. ABSENT: crackles Cardiovascular exam: PRESENT: +S1, +S2 GI/Abdominal exam: PRESENT: normal bowel sounds, soft. ABSENT: guarding, o rganomegaly, tenderness Extremities exam: PRESENT: pedal edema Neurological exam: PRESENT: awake Results Laboratory Results: 06/06/19 12:23 06/06/19 12:23 06/06/19 06/06/19 06/06/19 06:12 06:12 06:53 WBC 6.9 RBC 3.35 L Hgb 8.8 L Hct 27.2 L MCV 81 MCH 26.4 L MCHC 32.5 RDW 26.4 H Plt Count 295 Carbonic Acid HCO3/H2CO3 Ratio ABG pH ABG pCO2 ABG pO2 ABG HCO3 ABG O2 Saturation ABG Base Excess FiO2 Sodium 133.9 L Potassium 4.4 Chloride 96 L Carbon Dioxide 29 Anion Gap 9 BUN 40 H Creatinine 2.71 H Est GFR ( Amer) 29 L Glucose 90 Calcium 8.7 Total Bilirubin AST Alkaline Phosphatase Total Protein Albumin Lipase Blood Type A POSITIVE Antibody Screen NEGATIVE 06/06/19 06/06/19 06/06/19 06:53 12:23 12:23 WBC 6.7 RBC 3.40 L Hgb 9.2 L Hct 27.7 L MCV 81 MCH 26.9 L MCHC 33.1 RDW 25.2 H Plt Count 303 Carbonic Acid 1.40 H HCO3/H2CO3 Ratio 20:1 ABG pH 7.42 ABG pCO2 46.5 H ABG pO2 91.4 ABG HCO3 29.3 H ABG O2 Saturation 97.0 ABG Base Excess 4.2 FiO2 45% Sodium 134.5 L Potassium 4.5 Chloride 96 L Carbon Dioxide 30 Anion Gap 9 BUN 40 H Creatinine 2.81 H Est GFR ( Amer) 28 L Glucose 94 Calcium 8.6 Total Bilirubin 1.8 H AST 15 L Alkaline Phosphatase 245 H Total Protein 6.2 L Albumin 2.8 L Lipase 10.4 L Blood Type Antibody Screen 05/12/19 05/12/19 05/13/19 12:00 18:31 00:16 Creatine Kinase CK-MB (CK-2) Troponin I 0.039 0.041 0.039 NT-Pro-B Natriuret Pep 8970 H 05/13/19 05/14/19 05/19/19 09:35 04:26 17:45 Creatine Kinase 230 H CK-MB (CK-2) 4.88 H Troponin I 0.047 NT-Pro-B Natriuret Pep 01879 H 06/06/19 06/06/19 06/06/19 07:03 07:03 12:23 Creatine Kinase < 20 L < 20 L CK-MB (CK-2) 1.21 Troponin I 0.016 NT-Pro-B Natriuret Pep 06/06/19 12:23 Creatine Kinase CK-MB (CK-2) 1.11 Troponin I 0.015 NT-Pro-B Natriuret Pep Impressions: Renal Artery Duplex 05/20/19 06:00 IMPRESSION: Nondiagnostic study Chest X-Ray 05/20/19 09:58 IMPRESSION: Pulmonary edema pattern KUB X-Ray 05/23/19 00:00 IMPRESSION: NO RADIOGRAPHIC EVIDENCE FOR ACUTE ABDOMINAL DISEASE. Guidance Fluoroscopy 05/29/19 00:00 IMPRESSION: IMAGE(S) OBTAINED DURING PROCEDURE. Abdomen/Pelvis CT 06/03/19 12:27 IMPRESSION: 1. Basilar lung changes as above. Given history of significant nausea and vomiting, this could be due to aspiration pneumonia. A component of cardiogenic edema is also in the differential. 2. No distended bowel loops to suggest obstruction. There is mild ascites. Assessment & Plan - Diagnosis (1) Acute exacerbation of congestive heart failure Qualifiers: Heart failure type: combined systolic and diastolic Qualified Code(s): I50.43 - Acute on chronic combined systolic (congestive) and diastolic (congestive) heart failure Is this a current diagnosis for this admission?: Yes Plan: Clinically improving. Continue current guidelines. (2) Acute kidney injury superimposed on chronic kidney disease Is this a current diagnosis for this admission?: Yes Plan: Patient has been slowly improving urine output and made about 500+ urine since yesterday which is encouraging. It had been thought that he may have reached ESRD given his underlying CKD and anyway patient has been begun on dialysis. Currently being seen on dialysis. Undergoing dialysis well. Plan to remove approximately 1 L of fluid. Vital signs are stable. Dialysis orders were reviewed with the treating dialysis nurse. (3) Acute metabolic encephalopathy Is this a current diagnosis for this admission?: Yes Plan: Improving. (4) Anemia Is this a current diagnosis for this admission?: Yes Plan: This morning he has had episode of hematemesis with acute blood loss anemia on top of the anemia of chronic kidney disease. Adjust erythropoietin. Monitor. (5) Bipolar disorder Is this a current diagnosis for this admission?: Yes Plan: Currently stable. (6) Cellulitis, leg Qualifiers: Laterality: unspecified laterality Qualified Code(s): L03.119 - Cellulitis of unspecified part of limb Is this a current diagnosis for this admission?: Yes Plan: Improving and currently off all antibiotics. (7) Scabies Is this a current diagnosis for this admission?: Yes Plan: As per hospitalist. (8) Stasis dermatitis of both legs Is this a current diagnosis for this admission?: Yes Plan: Stable. Some improvement with dialysis. (9) Peripheral vascular disease Is this a current diagnosis for this admission?: Yes Plan: Status quo. As per hospitalist. (10) Upper gastrointestinal bleed Is this a current diagnosis for this admission?: Yes Plan: Acute as of this morning with a two-point drop in hemoglobin. Status post EGD which shows erosive esophagitis. Presently hemodynamically stable.
--- NOTE | 2019-06-06 18:19 | Progress Note ---
Provider Note Provider Note: Patient not seen on rounds today since he was having EGD in the operating room, and later was having dialysis, and hence I did not have a chance to see him. Hence will not charge the bill today.
[2019-06-06 20:27] LABS: CREATINE KINASE MB 1.12 ng/mL (<4.55); TROPONIN I 0.016 ng/mL
[2019-06-06] MEDS: PANTOPRAZOLE SODIUM 40 MG VIAL IV SCH (22:26)
[2019-06-06] MEDS: QUETIAPINE FUMARATE 150 MG PO SCH (22:44)
[2019-06-06] MEDS: QUETIAPINE FUMARATE 300 MG PO SCH (22:44)
[2019-06-06] MEDS ORDERED: QUETIAPINE FUMARATE 100 MG TABLET PO ONE (23:00)
[2019-06-07 05:10] LABS: HEMATOCRIT 30.1 % (37.9-51.0); HEMOGLOBIN 9.8 g/dL (13.5-17.0); MEAN CORPUSCULAR HEMOGLOBIN 26.8 pg (27.0-33.4); MEAN CORPUSCULAR HGB CONC 32.7 g/dL (32.0-36.0); MEAN CORPUSCULAR VOLUME 82 fl (80-97); PLATELET COUNT 277 10^3/uL (150-450); RED BLOOD COUNT 3.68 10^6/uL (4.35-5.55); RED CELL DISTRIBUTION WIDTH 23.9 % (11.5-14.0); WHITE BLOOD COUNT 5.7 10^3/uL (4.0-10.5)
[2019-06-07] MEDS: HEPARIN SOD (PORCINE) 5,000 UNIT/ML 1 ML VIAL SUBCUT SCH ×3 (05:53→21:16)
--- NOTE | 2019-06-07 12:14 | PDOC PROGRESS REPORT ---
Subjective Progress Note for:: 06/07/19 Subjective:: 06/03/2019: Patient was seen and examined. He complains of nausea and vomiting. CT scan of the abdomen shows no obstruction. Waiting for placement. 06/04/2019: Patient was seen and examined. He continues to vomit. Today he vomited liquid dark emesis. Not tolerating any diet. 06/05/2019: Patient was seen and examined. He tells me that he is feeling better today. He says he tolerated some liquids for breakfast today. His hemoglobin has been stable. 06/06/2019: Patient was seen and examined. He had hemoptysis last night and short run of V. tach. He is on nasal cannula oxygen. Hemoglobin dropped today. Dr. Barker electrolytes ordered blood transfusion. Discussed with Dr. Falk from surgery who is going to do EGD today. Dr. Barker transferred the patient to the ICU which I agree with. Dr. Vidal declined the transfer. I discussed with him over the phone. 06/07/2019: Patient was seen and examined. Had an EGD yesterday positive for GERD and esophagitis. Received units of blood yesterday. Had hemodialysis yesterday. Had some breakfast today. Despite poor appetite he did not vomit. Physical examination: Patient is no acute distress Alert oriented to time place person No anxiety or depression Head: atraumatic normocephalic Pupils: are equal reactive Neck: is supple and trachea is central no lymphadenopathy No pharyngeal erythema or exudates Heart: Regular rate and rhythm, no peripheral edema Lungs: clear to auscultation, no respiratory distress Abdomen: nontender nondistended Neurological exam: unremarkable Musculoskeletal: No joint swelling or effusion chronic lower back pain and tenderness. Chronic leg skin changes. No suicidal or homicidal ideation Reason For Visit: HEART FAILURE Physical Exam Vital Signs: Temp Pulse Resp BP Pulse Ox 99.2 F 81 16 134/63 H 93 06/07/19 11:24 06/07/19 11:24 06/07/19 11:24 06/07/19 11:24 06/07/19 11:24 Pulse Oximeter Continuous Start: 05/31/19 13:23 Freq: RTQ4 Status: Complete Protocol: Document 06/07/19 08:39 [facility] (Rec: 06/07/19 08:39 [facility] [id number]) Pulse Oximetry Assessment Oxygen Saturation (92-100) 94 Oxygen Flow Rate (L/min) 2.5 Oxygen Delivery Method Nasal Cannula Equipment Usage Equipment Standby Continuous SpO2 Machine # 1 Intake & Output 06/06/19 06/07/19 06/08/19 06:59 06:59 06:59 Intake Total 755 600 Output Total 575 470 Balance 180 130 Weight 264 lb 12.403 oz 260 lb 2.327 oz Results Laboratory Results: 06/07/19 04:51 06/06/19 12:23 06/06/19 06/06/19 06/06/19 06:53 12:23 12:23 WBC 6.7 RBC 3.40 L Hgb 9.2 L Hct 27.7 L MCV 81 MCH 26.9 L MCHC 33.1 RDW 25.2 H Plt Count 303 Sodium 134.5 L Potassium 4.5 Chloride 96 L Carbon Dioxide 30 Anion Gap 9 BUN 40 H Creatinine 2.81 H Est GFR ( Amer) 28 L Glucose 94 Calcium 8.6 Total Bilirubin 1.8 H AST 15 L Alkaline Phosphatase 245 H Total Protein 6.2 L Albumin 2.8 L Lipase 10.4 L Blood Type A POSITIVE Antibody Screen NEGATIVE 06/07/19 04:51 WBC 5.7 RBC 3.68 L Hgb 9.8 L Hct 30.1 L MCV 82 MCH 26.8 L MCHC 32.7 RDW 23.9 H Plt Count 277 Sodium Potassium Chloride Carbon Dioxide Anion Gap BUN Creatinine Est GFR ( Amer) Glucose Calcium Total Bilirubin AST Alkaline Phosphatase Total Protein Albumin Lipase Blood Type Antibody Screen 05/12/19 05/12/19 05/13/19 12:00 18:31 00:16 Creatine Kinase CK-MB (CK-2) Troponin I 0.039 0.041 0.039 NT-Pro-B Natriuret Pep 8970 H 05/13/19 05/14/19 05/19/19 09:35 04:26 17:45 Creatine Kinase 230 H CK-MB (CK-2) 4.88 H Troponin I 0.047 NT-Pro-B Natriuret Pep 26917 H 06/06/19 06/06/19 06/06/19 07:03 07:03 12:23 Creatine Kinase < 20 L < 20 L CK-MB (CK-2) 1.21 Troponin I 0.016 NT-Pro-B Natriuret Pep 06/06/19 06/06/19 06/06/19 12:23 19:41 19:41 Creatine Kinase < 20 L CK-MB (CK-2) 1.11 1.12 Troponin I 0.015 0.016 NT-Pro-B Natriuret Pep Impressions: Renal Artery Duplex 05/20/19 06:00 IMPRESSION: Nondiagnostic study Chest X-Ray 05/20/19 09:58 IMPRESSION: Pulmonary edema pattern KUB X-Ray 05/23/19 00:00 IMPRESSION: NO RADIOGRAPHIC EVIDENCE FOR ACUTE ABDOMINAL DISEASE. Guidance Fluoroscopy 05/29/19 00:00 IMPRESSION: IMAGE(S) OBTAINED DURING PROCEDURE. Abdomen/Pelvis CT 06/03/19 12:27 IMPRESSION: 1. Basilar lung changes as above. Given history of significant nausea and vomiting, this could be due to aspiration pneumonia. A component of cardiogenic edema is also in the differential. 2. No distended bowel loops to suggest obstruction. There is mild ascites. Assessment and Plan - Plan Summary Summary: (1) Acute respiratory failure with hypoxia Is this a current diagnosis for this admission?: Yes (2) Bipolar disorder Is this a current diagnosis for this admission?: Yes (3) Foot ulcer, right Qualifiers: Non-pressure ulcer stage: unspecified non-pressure ulcer stage Qualified Code(s): L97.519 - Non-pressure chronic ulcer of other part of right foot with unspecified severity Is this a current diagnosis for this admission?: Yes (4) Lactic acidosis Is this a current diagnosis for this admission?: Yes (5) Abdominal pain Qualifiers: Abdominal location: epigastric Qualified Code(s): R10.13 - Epigastric pain Is this a current diagnosis for this admission?: Yes (6) Acute combined systolic and diastolic congestive heart failure, NYHA class 4 Is this a current diagnosis for this admission?: Yes (7) Acute renal failure superimposed on stage 3 chronic kidney disease Is this a current diagnosis for this admission?: Yes (8) COPD (chronic obstructive pulmonary disease) Qualifiers: COPD type: COPD with acute exacerbation Qualified Code(s): J44.1 - Chronic obstructive pulmonary disease with (acute) exacerbation Is this a current diagnosis for this admission?: Yes (9) Elevated troponin Is this a current diagnosis for this admission?: Yes (10) Hypertension Qualifiers: Hypertension type: essential hypertension Qualified Code(s): I10 - Essential (primary) hypertension Is this a current diagnosis for this admission?: Yes (11) Venous stasis Is this a current diagnosis for this admission?: Yes (12) Scabies Is this a current diagnosis for this admission?: Yes Palliative care consulted given patient's multiple comorbidities and overall poor functional state. 05/30/2019 Patient completed his dialysis today unfortunately he was not able to be [facility] because he [facility] rejected at [facility] Patient has also been rejected at [facility] Patient will need dialysis once discharged from the hospital Today's BUN is 65 creatinine 6.34 Calcium 8.6 Cultures have showed no growth in 5 days Wound culture from right foot grew out staph aureus but this is been 18 days ago Patient is currently on no antibiotics Patient had a right permacath placed on 05/29/2019 05/31/2019 Sleeping but arouses easily Hemodynamically stable temperature 97.8 pulse 62, blood pressure 126/55, Patient's oxygen saturations are in the mid 90s but requires 5 L of nasal cannula. FiO2 of 40% Try to wean patient down to 3 L. If we cannot do this successfully I will repeat a blood gas Patient did receive hemodialysis yesterday Patient waiting assisted placement 06/01/2019 Patient is very much awake and alert and conversant. Oriented. Patient tells me this morning that he wants to go to a rehab unit when he is discharge. He shows me a brochure from [place] [facility] Patient's vital signs are extremely stable. Will however need oxygen at 2-3 L at the time of discharge He will need no antibiotics at time of discharge. Patient will need to continue dialysis per nephrology's suggestions Patient's white count is down to 11,000, recent arterial blood gas is basically normal, last set of blood cultures were negative x5 days Patient is stable for discharge to facility 06/02/2019 Patient will possibly get a bed offer at [facility] Patient is undergoing dialysis on Sunday No indication for antibiotics Neurologically intact Labs are stable as one would expect for a dialysis patient Patient is able to maintain oxygen saturations in the upper 90s on 2 L nasal cannula. I suspect he could even gradually be weaned lower time permitting 06/03/2019 Complains of nausea and vomiting. CT scan of the abdomen pelvis negative for any bowel obstruction. Still awaiting placement. Continue current medications. 06/04/2019 Persistent vomiting. Today he threw up dark liquid emesis. Will start IV Protonix 40 mg twice daily. Consult surgery for possible EGD. Monitor H&H and transfuse if needed. 06/05/2019 Nausea and vomiting appears to be improving. He said he tolerated some liquids this morning for breakfast. Hemoglobin has been stable. Pending surgery evaluation for possible EGD. 06/06/2019 Hemoptysis and acute blood loss anemia. Blood transfusion ordered by Dr. Barker. EGD planned by Dr. Issa. Dr. Vidal saw and examined the patient and declined admission to the ICU. Patient is high risk for decompensation. I prefer for him to be transferred to the ICU but Dr. Vidal declined. 05/30/2019 Had an EGD yesterday positive for GERD and esophagitis. Received units of blood yesterday. Had hemodialysis yesterday. Had some breakfast today. Despite poor appetite he did not vomit.
[2019-06-07] MEDS: ASPIRIN 81 MG TABLET, ENT COATED PO SCH (12:23)
[2019-06-07] MEDS: FUROSEMIDE 40 MG TABLET PO SCH ×2 (12:24→17:52)
[2019-06-07] MEDS: THIAMINE HCL 100 MG TABLET PO SCH (12:24)
[2019-06-07] MEDS: VITAMIN B COMPLEX TABLET PO SCH (12:24)
[2019-06-07] MEDS: GABAPENTIN 300 MG CAPSULE PO SCH (12:24)
[2019-06-07] MEDS: METOPROLOL SUCCINATE 25 MG TAB.SR.24H PO SCH ×2 (12:25→21:25)
[2019-06-07] MEDS: NITROGLYCERIN 15 MG (0.6 MG/1 HR) PATCH.TD24 TD SCH (12:26)
[2019-06-07] MEDS: MULTIVITAMIN TABLET PO SCH (12:26)
[2019-06-07] MEDS: PAROXETINE HCL 20 MG TABLET PO SCH ×2 (12:28)
[2019-06-07] MEDS: PANTOPRAZOLE SODIUM 40 MG VIAL IV SCH ×2 (12:30→21:20)
[2019-06-07] MEDS: FLUTICASONE/UMECLIDIN/VILANTER 100-62.5-25 MCG/DOSE IH SCH (12:30)
[2019-06-07] MEDS: MINERAL OIL/PETROLATUM,WHITE CREAM 114 GM TP SCH (12:36)
[2019-06-07] MEDS: ACETAMINOPHEN 325 MG TABLET PO PRN (12:40)
[2019-06-07] MEDS: ONDANSETRON HCL INJ/PF 4 MG/2 ML SDV IV PRN (17:01)
--- NOTE | 2019-06-07 21:18 | Progress Note ---
Provider Note Provider Note: [facility] cardiology PROGRESS NOTE by Dr. Radha Lara on 06/07/2019. SUBJECTIVE: The patient denies any chest pain or discomfort. There is no shortness of breath. There is no PND orthopnea. There is no arrhythmia seen on the monitor. There is no leg edema. There is no TIA CVA symptoms. He has no further nausea or hematemesis. His EGD yesterday did not show any significant lesions except for some polypoid lesion in the distal esophagus which has been biopsied. PHYSICAL EXAMINATION: The patient appears to be chronically ill but in no acute distress. Selected Entries 06/07/19 11:24 Temperature 99.2 F Temperature Oral Source Pulse Rate 81 Respiratory 16 Rate Blood Pressure 134/63 H Blood Pressure 86 Mean BP Location Left Arm BP Position Supine O2 Sat by Pulse 93 Oximetry Oxygen Flow 2.00 Rate Oxygen Delivery Nasal Cannula Method HEAD: Head is atraumatic normocephalic. Eyes: Pupils are equal round regular reactive light accommodation extraocular movements are normal there is no congenital pallor there is no scleral icterus. Ears: External auditory canals are clear, there are no lesions of the pinna. Nose: No deviated nasal septum and no inflammation of the nasal mucous membrane. Mouth: Mucous membranes of mouth are moist tongue is moist there is no ulcers there is no bleeding from the gums. Throat: There is no redness of the oropharynx there is no exudates. Skin: There is no petechia or ecchymosis there is no skin lesions or skin rashes. Neck: Neck is supple there is JVD present. Carotids equal there is no bruit there is no lymphadenopathy there is no neck stiffness. There is no goiter trachea central lungs: Lungs show diminished air entry and prolonged expiration. Scattered rhonchi and wheezing present. There is no no bibasilar rales of CHF. Few dry crackles in the right base. There is no chest wall tenderness. HEART: S1-S2 is heard there is no S3 gallop there is no S4 gallop S1 is of normal intensity. There is no rub. The systolic murmur of MR and TR. There is no prosthetic valve clicks heard. Abdomen: Abdomen is soft, mildly distended, no definite ascites. There is no hepatosplenomegaly. Bowel sounds well heard there is no tender areas of masses. There is no rebound guarding or rigidity. Extremities: Femorals are slightly diminished, there is no bruits. Leg pulses are diminished. There is trace 2- edema, with venous stasis dermatitis. There is no DVT or cellulitis there is no cyanosis or clubbing there is no DVT or cellulitis. There is no calf tenderness. [employer]: The patient is awake alert oriented 3 with no focal deficits. But in spite of this he has slow mentation. Psychiatric: The patient judgment and insight are intact and his affect. Labs- All tests 24 hr 06/07/19 04:51 WBC 5.7 RBC 3.68 L Hgb 9.8 L Hct 30.1 L MCV 82 MCH 26.8 L MCHC 32.7 RDW 23.9 H Plt Count 277 Chest X-Ray 05/12/19 11:53 IMPRESSION: No acute cardiopulmonary process. Chest X-Ray 05/14/19 00:00 IMPRESSION: No acute cardiopulmonary process. Chest X-Ray 05/15/19 15:34 IMPRESSION: Right jugular central line tip SVC. No Pneumothorax Renal Artery Duplex 05/20/19 06:00 IMPRESSION: Nondiagnostic study Chest X-Ray 05/20/19 09:58 IMPRESSION: Pulmonary edema pattern KUB X-Ray 05/23/19 00:00 IMPRESSION: NO RADIOGRAPHIC EVIDENCE FOR ACUTE ABDOMINAL DISEASE. Guidance Fluoroscopy 05/29/19 00:00 IMPRESSION: IMAGE(S) OBTAINED DURING PROCEDURE. Abdomen/Pelvis CT 06/03/19 12:27 IMPRESSION: 1. Basilar lung changes as above. Given history of significant nausea and vomiting, this could be due to aspiration pneumonia. A component of cardiogenic edema is also in the differential. 2. No distended bowel loops to suggest obstruction. There is mild ascites. iMPRESSION/RECOMMENDATION: 1. Acute respiratory failure secondary to combination of acute on chronic systolic heart failure, acute renal failure causing volume overload, acute exacerbation of COPD, and severe pulmonary hypertension, this is immensely improved and the patient is on nasal oxygen and not on BiPAP anymore. 2. Acute on chronic systolic heart failure. Patient has been placed on fluid restriction of 1500 mL each 24 hours. The patient is off inotropes and IV nitroglycerin. He is on topical nitrates and hydralazine. His Entresto has been stopped.. His low blood pressure precludes the reinstituting of ARB or Entresto. His renal artery Dopplers for renal artery stenosis remains negative albeit poor quality study. At present the patient is compensated from his heart failure. 3. Acute exacerbation COPD: This is resolved. 4. Hypertension: At present blood pressure reasonable. 5. Severe pulmonary hypertension: He is on nitrates and hence cannot use sildenafil. Also his blood pressure is low and hence cannot place him on a calcium channel laurie especially in view of associated severe LV dysfunction, and cannot increase the patient's hydralazine due to low blood pressure. Will discuss with nephrology since the patient is on dialysis if ARB daily started instead of the hydralazine. 6. Acute on chronic renal failure. Avoid nephrotoxic drugs. The patient has been started on dialysis, in spite of this patient's renal function is deteriorating. The patient is now dialysis dependent and has reached end-stage renal disease. 7. Bipolar disorder 8. Tobacco abuse disorder. 9 coronary artery disease: History of coronary bypass graft surgery: No angina and troponin so far is not elevated. 10. Peripheral vascular disease: This will be addressed later on. 11. History of valvular repair: Details not available. Try to contact [facility] but they say they have not heard of the patient, and have no records on him. 12. Severe hearing loss: 13. Scabies. This is resolved. 14. Hematemesis and nausea. This is resolved. No recurrence. Medications reviewed. Medical regimen and management plan discussed with attending physician. Discussed with nephrology. Medical decision making is of moderate complexity. 40 minutes spent as patient more than 50% time spent in direct patient care. Patient awaiting placement in a rehab facility. Will follow.
[2019-06-07] MEDS: QUETIAPINE FUMARATE 100 MG TABLET PO SCH (21:32)
[2019-06-08] MEDS: HEPARIN SOD (PORCINE) 5,000 UNIT/ML 1 ML VIAL SUBCUT SCH ×3 (05:11→21:27)
[2019-06-08 06:38] LABS: HEMOGLOBIN 10.1 g/dL (13.5-17.0); MEAN CORPUSCULAR HGB CONC 32.6 g/dL (32.0-36.0); MEAN CORPUSCULAR VOLUME 83 fl (80-97); PLATELET COUNT 278 10^3/uL (150-450); RED BLOOD COUNT 3.75 10^6/uL (4.35-5.55); RED CELL DISTRIBUTION WIDTH 26.3 % (11.5-14.0)
[2019-06-08] MEDS: THIAMINE HCL 100 MG TABLET PO SCH (09:27)
[2019-06-08] MEDS: GABAPENTIN 300 MG CAPSULE PO SCH (09:27)
[2019-06-08] MEDS: FUROSEMIDE 40 MG TABLET PO SCH ×2 (09:27→17:39)
[2019-06-08] MEDS: MULTIVITAMIN TABLET PO SCH (09:27)
[2019-06-08] MEDS: METOPROLOL SUCCINATE 25 MG TAB.SR.24H PO SCH ×2 (09:27→22:02)
[2019-06-08] MEDS: ASPIRIN 81 MG TABLET, ENT COATED PO SCH (09:27)
[2019-06-08] MEDS: VITAMIN B COMPLEX TABLET PO SCH (09:27)
[2019-06-08] MEDS: NITROGLYCERIN 15 MG (0.6 MG/1 HR) PATCH.TD24 TD SCH (09:28)
[2019-06-08] MEDS: PANTOPRAZOLE SODIUM 40 MG VIAL IV SCH ×2 (09:28→22:01)
[2019-06-08] MEDS: PAROXETINE HCL 20 MG TABLET PO SCH ×2 (09:28)
[2019-06-08] MEDS: FLUTICASONE/UMECLIDIN/VILANTER 100-62.5-25 MCG/DOSE IH SCH (09:29)
[2019-06-08] MEDS: MINERAL OIL/PETROLATUM,WHITE CREAM 114 GM TP SCH (09:29)
--- NOTE | 2019-06-08 10:15 | PDOC PROGRESS REPORT ---
Subjective Progress Note for:: 06/08/19 Subjective:: 06/03/2019: Patient was seen and examined. He complains of nausea and vomiting. CT scan of the abdomen shows no obstruction. Waiting for placement. 06/04/2019: Patient was seen and examined. He continues to vomit. Today he vomited liquid dark emesis. Not tolerating any diet. 06/05/2019: Patient was seen and examined. He tells me that he is feeling better today. He says he tolerated some liquids for breakfast today. His hemoglobin has been stable. 06/06/2019: Patient was seen and examined. He had hemoptysis last night and short run of V. tach. He is on nasal cannula oxygen. Hemoglobin dropped today. Dr. Barker electrolytes ordered blood transfusion. Discussed with Dr. Falk from surgery who is going to do EGD today. Dr. Barker transferred the patient to the ICU which I agree with. Dr. Vidal declined the transfer. I discussed with him over the phone. 06/07/2019: Patient was seen and examined. Had an EGD yesterday positive for GERD and esophagitis. Received units of blood yesterday. Had hemodialysis yesterday. Had some breakfast today. Despite poor appetite he did not vomit. 06/08/2019: Patient seen and examined. Patient vomited his dinner last night. He has poor appetite and did not eat much this morning. Still has epigastric tenderness and feels that there is a knot in his upper abdomen. Physical examination: Patient is no acute distress Alert oriented to time place person No anxiety or depression Head: atraumatic normocephalic Pupils: are equal reactive Neck: is supple and trachea is central no lymphadenopathy No pharyngeal erythema or exudates Heart: Regular rate and rhythm, no peripheral edema Lungs: clear to auscultation, no respiratory distress Abdomen: Epigastric tenderness. Nondistended Neurological exam: unremarkable Musculoskeletal: No joint swelling or effusion chronic lower back pain and tenderness. Chronic leg skin changes. No suicidal or homicidal ideation Reason For Visit: HEART FAILURE Physical Exam Vital Signs: Temp Pulse Resp BP Pulse Ox 98.3 F 62 14 145/64 H 90 L 06/08/19 08:07 06/08/19 08:07 06/08/19 08:07 06/08/19 08:07 06/08/19 08:07 Pulse Oximeter Continuous Start: 05/31/19 13:23 Freq: RTQ4 Status: Complete Protocol: Document 06/07/19 08:39 [facility] (Rec: 06/07/19 08:39 [facility] [id number]) Pulse Oximetry Assessment Oxygen Saturation (92-100) 94 Oxygen Flow Rate (L/min) 2.5 Oxygen Delivery Method Nasal Cannula Equipment Usage Equipment Standby Continuous SpO2 Machine # 1 Intake & Output 06/07/19 06/08/19 06/09/19 06:59 06:59 06:59 Intake Total 600 722 Output Total 470 750 Balance 130 -28 Weight 260 lb 2.327 oz 263 lb 0.183 oz Results Laboratory Results: 06/08/19 06:05 06/06/19 12:23 06/08/19 06:05 WBC 6.0 RBC 3.75 L Hgb 10.1 L Hct 31.0 L MCV 83 MCH 27.0 MCHC 32.6 RDW 26.3 H Plt Count 278 05/12/19 05/12/19 05/13/19 12:00 18:31 00:16 Creatine Kinase CK-MB (CK-2) Troponin I 0.039 0.041 0.039 NT-Pro-B Natriuret Pep 8970 H 05/13/19 05/14/19 05/19/19 09:35 04:26 17:45 Creatine Kinase 230 H CK-MB (CK-2) 4.88 H Troponin I 0.047 NT-Pro-B Natriuret Pep 49318 H 06/06/19 06/06/19 06/06/19 07:03 07:03 12:23 Creatine Kinase < 20 L < 20 L CK-MB (CK-2) 1.21 Troponin I 0.016 NT-Pro-B Natriuret Pep 06/06/19 06/06/19 06/06/19 12:23 19:41 19:41 Creatine Kinase < 20 L CK-MB (CK-2) 1.11 1.12 Troponin I 0.015 0.016 NT-Pro-B Natriuret Pep Impressions: Renal Artery Duplex 05/20/19 06:00 IMPRESSION: Nondiagnostic study Chest X-Ray 05/20/19 09:58 IMPRESSION: Pulmonary edema pattern KUB X-Ray 05/23/19 00:00 IMPRESSION: NO RADIOGRAPHIC EVIDENCE FOR ACUTE ABDOMINAL DISEASE. Guidance Fluoroscopy 05/29/19 00:00 IMPRESSION: IMAGE(S) OBTAINED DURING PROCEDURE. Abdomen/Pelvis CT 06/03/19 12:27 IMPRESSION: 1. Basilar lung changes as above. Given history of significant nausea and vomiting, this could be due to aspiration pneumonia. A component of cardiogenic edema is also in the differential. 2. No distended bowel loops to suggest obstruction. There is mild ascites. Assessment and Plan - Plan Summary Summary: (1) Acute respiratory failure with hypoxia Is this a current diagnosis for this admission?: Yes (2) Bipolar disorder Is this a current diagnosis for this admission?: Yes (3) Foot ulcer, right Qualifiers: Non-pressure ulcer stage: unspecified non-pressure ulcer stage Qualified Code(s): L97.519 - Non-pressure chronic ulcer of other part of right foot with unspecified severity Is this a current diagnosis for this admission?: Yes (4) Lactic acidosis Is this a current diagnosis for this admission?: Yes (5) Abdominal pain Qualifiers: Abdominal location: epigastric Qualified Code(s): R10.13 - Epigastric pain Is this a current diagnosis for this admission?: Yes (6) Acute combined systolic and diastolic congestive heart failure, NYHA class 4 Is this a current diagnosis for this admission?: Yes (7) Acute renal failure superimposed on stage 3 chronic kidney disease Is this a current diagnosis for this admission?: Yes (8) COPD (chronic obstructive pulmonary disease) Qualifiers: COPD type: COPD with acute exacerbation Qualified Code(s): J44.1 - Chronic obstructive pulmonary disease with (acute) exacerbation Is this a current diagnosis for this admission?: Yes (9) Elevated troponin Is this a current diagnosis for this admission?: Yes (10) Hypertension Qualifiers: Hypertension type: essential hypertension Qualified Code(s): I10 - Essential (primary) hypertension Is this a current diagnosis for this admission?: Yes (11) Venous stasis Is this a current diagnosis for this admission?: Yes (12) Scabies Is this a current diagnosis for this admission?: Yes Palliative care consulted given patient's multiple comorbidities and overall poor functional state. 05/30/2019 Patient completed his dialysis today unfortunately he was not able to be transferred to snf facility because he was rejected at [facility] Patient has also been rejected at [facility] Patient will need dialysis once discharged from the hospital Today's BUN is 65 creatinine 6.34 Calcium 8.6 Cultures have showed no growth in 5 days Wound culture from right foot grew out staph aureus but this is been 18 days ago Patient is currently on no antibiotics Patient had a right permacath placed on 05/29/2019 05/31/2019 Sleeping but arouses easily Hemodynamically stable temperature 97.8 pulse 62, blood pressure 126/55, Patient's oxygen saturations are in the mid 90s but requires 5 L of nasal cannula. FiO2 of 40% Try to wean patient down to 3 L. If we cannot do this successfully I will repeat a blood gas Patient did receive hemodialysis yesterday Patient waiting skilled nursing placement 06/01/2019 Patient is very much awake and alert and conversant. Oriented. Patient tells me this morning that he wants to go to a rehab unit when he is discharge. He shows me a brochure from [facility] Patient's vital signs are extremely stable. Will however need oxygen at 2-3 L at the time of discharge He will need no antibiotics at time of discharge. Patient will need to continue dialysis per nephrology's suggestions Patient's white count is down to 11,000, recent arterial blood gas is basically normal, last set of blood cultures were negative x5 days Patient is stable for discharge to facility 06/02/2019 Patient will possibly get a bed offer at [facility] Patient is undergoing dialysis on Sunday No indication for antibiotics Neurologically intact Labs are stable as one would expect for a dialysis patient Patient is able to maintain oxygen saturations in the upper 90s on 2 L nasal cannula. I suspect he could even gradually be weaned lower time permitting 06/03/2019 Complains of nausea and vomiting. CT scan of the abdomen pelvis negative for any bowel obstruction. Still awaiting placement. Continue current medications. 06/04/2019 Persistent vomiting. Today he threw up dark liquid emesis. Will start IV Protonix 40 mg twice daily. Consult surgery for possible EGD. Monitor H&H and transfuse if needed. 06/05/2019 Nausea and vomiting appears to be improving. He said he tolerated some liquids this morning for breakfast. Hemoglobin has been stable. Pending surgery evaluation for possible EGD. 06/06/2019 Hemoptysis and acute blood loss anemia. Blood transfusion ordered by Dr. Barker. EGD planned by Dr. Issa. Dr. Vidal saw and examined the patient and declined admission to the ICU. Patient is high risk for decompensation. I prefer for him to be transferred to the ICU but Dr. Vidal declined. 06/07/2019 Had an EGD yesterday positive for GERD and esophagitis. Received units of blood yesterday. Had hemodialysis yesterday. Had some breakfast today. Despite poor appetite he did not vomit. 06/08/2019 Patient still symptomatic. Poor oral intake. Persistent nausea and vomiting. Will add Carafate.
[2019-06-08] MEDS: SUCRALFATE 1 GM TABLET PO SCH ×3 (11:18→22:01)
[2019-06-08] MEDS: ONDANSETRON HCL INJ/PF 4 MG/2 ML SDV IV PRN (17:16)
[2019-06-08] MEDS: QUETIAPINE FUMARATE 100 MG TABLET PO SCH (22:01)
[2019-06-09] MEDS: HEPARIN SOD (PORCINE) 5,000 UNIT/ML 1 ML VIAL SUBCUT SCH ×3 (05:32→22:28)
[2019-06-09 06:06] LABS: HEMATOCRIT 30.5 % (37.9-51.0); MEAN CORPUSCULAR HEMOGLOBIN 26.8 pg (27.0-33.4); MEAN CORPUSCULAR HGB CONC 32.7 g/dL (32.0-36.0); MEAN CORPUSCULAR VOLUME 82 fl (80-97); PLATELET COUNT 290 10^3/uL (150-450); RED BLOOD COUNT 3.73 10^6/uL (4.35-5.55); RED CELL DISTRIBUTION WIDTH 25.6 % (11.5-14.0); WHITE BLOOD COUNT 6.5 10^3/uL (4.0-10.5)
[2019-06-09 06:21] LABS: ANION GAP 8 (5-19); BLOOD UREA NITROGEN 32 mg/dL (7-20); CALCIUM 8.5 mg/dL (8.4-10.2); CARBON DIOXIDE 30 mmol/L (22-30); CHLORIDE 95 mmol/L (98-107); GLUCOSE 84 mg/dL (75-110); POTASSIUM 4.1 mmol/L (3.6-5.0)
[2019-06-09] MEDS: ONDANSETRON HCL INJ/PF 4 MG/2 ML SDV IV PRN ×2 (06:32→12:11)
[2019-06-09] MEDS: SUCRALFATE 1 GM TABLET PO SCH ×4 (08:08→22:28)
--- NOTE | 2019-06-09 09:05 | PDOC PROGRESS REPORT ---
Subjective Progress Note for:: 06/09/19 Subjective:: 06/03/2019: Patient was seen and examined. He complains of nausea and vomiting. CT scan of the abdomen shows no obstruction. Waiting for placement. 06/04/2019: Patient was seen and examined. He continues to vomit. Today he vomited liquid dark emesis. Not tolerating any diet. 06/05/2019: Patient was seen and examined. He tells me that he is feeling better today. He says he tolerated some liquids for breakfast today. His hemoglobin has been stable. 06/06/2019: Patient was seen and examined. He had hemoptysis last night and short run of V. tach. He is on nasal cannula oxygen. Hemoglobin dropped today. Dr. Barker electrolytes ordered blood transfusion. Discussed with Dr. Falk from surgery who is going to do EGD today. Dr. Barker transferred the patient to the ICU which I agree with. Dr. Vidal declined the transfer. I discussed with him over the phone. 06/07/2019: Patient was seen and examined. Had an EGD yesterday positive for GERD and esophagitis. Received units of blood yesterday. Had hemodialysis yesterday. Had some breakfast today. Despite poor appetite he did not vomit. 06/08/2019: Patient seen and examined. Patient vomited his dinner last night. He has poor appetite and did not eat much this morning. Still has epigastric tenderness and feels that there is a knot in his upper abdomen. 06/09/2019-no acute events in the last 24 hours. Afebrile. He is due for dialysis today. Complains of nausea getting Zofran. And has a dialysis access in the right side of the chest. Reason For Visit: HEART FAILURE Physical Exam Vital Signs: Temp Pulse Resp BP Pulse Ox 97.6 F 83 16 154/53 H 95 06/09/19 07:33 06/09/19 07:33 06/09/19 07:33 06/09/19 07:33 06/09/19 07:33 Pulse Oximeter Continuous Start: 05/31/19 13:23 Freq: RTQ4 Status: Complete Protocol: Document 06/07/19 08:39 [facility] (Rec: 06/07/19 08:39 [facility] [id number]) Pulse Oximetry Assessment Oxygen Saturation (92-100) 94 Oxygen Flow Rate (L/min) 2.5 Oxygen Delivery Method Nasal Cannula Equipment Usage Equipment Standby Continuous SpO2 Machine # 1 Intake & Output 06/08/19 06/09/19 06/10/19 06:59 06:59 06:59 Intake Total 722 1298 Output Total 103 1650 Balance -28 -352 Weight 119.3 kg 118 kg General appearance: PRESENT: no acute distress, well-developed Head exam: PRESENT: atraumatic Eye exam: PRESENT: PERRLA Mouth exam: PRESENT: dry mucosa Teeth exam: PRESENT: poor dentation Neck exam: ABSENT: carotid bruit, JVD, lymphadenopathy, thyromegaly Respiratory exam: PRESENT: decreased breath sounds Cardiovascular exam: PRESENT: RRR, other - Dialysis access present in the right side of the chest.. ABSENT: diastolic murmur, rubs, systolic murmur GI/Abdominal exam: PRESENT: normal bowel sounds, soft. ABSENT: distended, guarding, mass, organolmegaly, rebound, tenderness Rectal exam: PRESENT: deferred Extremities exam: PRESENT: full ROM. ABSENT: calf tenderness, clubbing, pedal edema Neurological exam: PRESENT: alert, awake, oriented to person, oriented to place, oriented to time, oriented to situation, CN II-XII grossly intact. ABSENT: motor sensory deficit Psychiatric exam: PRESENT: appropriate affect, normal mood. ABSENT: homicidal ideation, suicidal ideation Results Laboratory Results: 06/09/19 05:38 06/09/19 05:38 06/09/19 06/09/19 05:38 05:38 WBC 6.5 RBC 3.73 L Hgb 10.0 L Hct 30.5 L MCV 82 MCH 26.8 L MCHC 32.7 RDW 25.6 H Plt Count 290 Sodium 133.1 L Potassium 4.1 Chloride 95 L Carbon Dioxide 30 Anion Gap 8 BUN 32 H Creatinine 2.32 H Est GFR ( Amer) 35 L Glucose 84 Calcium 8.5 05/12/19 05/12/19 05/13/19 12:00 18:31 00:16 Creatine Kinase CK-MB (CK-2) Troponin I 0.039 0.041 0.039 NT-Pro-B Natriuret Pep 8970 H 05/13/19 05/14/19 05/19/19 09:35 04:26 17:45 Creatine Kinase 230 H CK-MB (CK-2) 4.88 H Troponin I 0.047 NT-Pro-B Natriuret Pep 00843 H 06/06/19 06/06/19 06/06/19 07:03 07:03 12:23 Creatine Kinase < 20 L < 20 L CK-MB (CK-2) 1.21 Troponin I 0.016 NT-Pro-B Natriuret Pep 06/06/19 06/06/19 06/06/19 12:23 19:41 19:41 Creatine Kinase < 20 L CK-MB (CK-2) 1.11 1.12 Troponin I 0.015 0.016 NT-Pro-B Natriuret Pep Impressions: Renal Artery Duplex 05/20/19 06:00 IMPRESSION: Nondiagnostic study Chest X-Ray 05/20/19 09:58 IMPRESSION: Pulmonary edema pattern KUB X-Ray 05/23/19 00:00 IMPRESSION: NO RADIOGRAPHIC EVIDENCE FOR ACUTE ABDOMINAL DISEASE. Guidance Fluoroscopy 05/29/19 00:00 IMPRESSION: IMAGE(S) OBTAINED DURING PROCEDURE. Abdomen/Pelvis CT 06/03/19 12:27 IMPRESSION: 1. Basilar lung changes as above. Given history of significant nausea and vomiting, this could be due to aspiration pneumonia. A component of cardiogenic edema is also in the differential. 2. No distended bowel loops to suggest obstruction. There is mild ascites. Assessment and Plan - Diagnosis (1) Acute respiratory failure with hypoxia Is this a current diagnosis for this admission?: Yes Plan: Multifactorial. Secondary to acute on chronic systolic heart failure with pulmonary edema noted on chest x-ray and severe pulmonary hypertension as well as underlying chronic COPD. Nasal cannula during daytime and BiPAP at night. 05/28/2019 Still requiring oxygen supplementation. Multifactorial including underlying COPD, congestive heart failure and severe pulmonary hypertension. Continue daytime oxygen and nocturnal BiPAP. 05/29/2019 This may be the patient's baseline. He will be going to long-term care where they will be able to continue attempts at weaning to room air. 06/09/2019-patient admitted with acute respiratory failure with hypoxia resolving. Pulse ox is 98% on 2 end of liters today. Comfortably in the bed communicating well. (2) Acute kidney injury superimposed on chronic kidney disease Is this a current diagnosis for this admission?: Yes Plan: 06/09/2019-patient has a dialysis access, nephrology on board, last dialysis session is on . Patient may go for dialysis today. (3) Acute metabolic encephalopathy Is this a current diagnosis for this admission?: Yes Plan: Uremic encephalopathy has resolved. Currently patient is back to his baseline mental status. 05/28/2019 Difficult to tell patient's baseline. Hearing loss is certainly an issue. He does appear to answer questions appropriately. Still with uremia however. Encephalopathy certainly is improved. 05/29/2019 Improved. Likely at baseline. 06/09/2019-patient has a difficulty in hearing but able to answer appropriately. He is complaining of nausea and is also told me he is getting medications for it. He also aware that he is going for dialysis today. (4) Anemia Is this a current diagnosis for this admission?: Yes Plan: 06/09/2019-patient has history of anemia of chronic disease most likely secondary to ESRD , management as per nephrology team. (5) Bipolar disorder Is this a current diagnosis for this admission?: No Plan: Continue home medication regiment of Paxil, Seroquel, hydroxyzine. Supportive care. (6) Cellulitis, leg Qualifiers: Laterality: unspecified laterality Qualified Code(s): L03.119 - Cellulitis of unspecified part of limb Is this a current diagnosis for this admission?: Yes Plan: Completed 10 days of antibiotics and specifically 8 days of cefepime for coverage of Acinetobacter, Staphylococcus and Pseudomonas from wound culture Received 3 days of IV clindamycin. 05/28/2019 Resolved. Continue to monitor lower extremities. 05/29/2019 Antibiotic therapy completed. Patient exhibits classic changes of chronic venous insufficiency. 06/09/2019-patient completed antibiotic therapy. Blood cultures indicates staph aureus, Acinetobacter repeat blood cultures from 05/15/19 negative. - Plan Summary Summary: (1) Acute respiratory failure with hypoxia Is this a current diagnosis for this admission?: Yes (2) Bipolar disorder Is this a current diagnosis for this admission?: Yes (3) Foot ulcer, right Qualifiers: Non-pressure ulcer stage: unspecified non-pressure ulcer stage Qualified Code(s): L97.519 - Non-pressure chronic ulcer of other part of right foot with unspecified severity Is this a current diagnosis for this admission?: Yes (4) Lactic acidosis Is this a current diagnosis for this admission?: Yes (5) Abdominal pain Qualifiers: Abdominal location: epigastric Qualified Code(s): R10.13 - Epigastric pain Is this a current diagnosis for this admission?: Yes (6) Acute combined systolic and diastolic congestive heart failure, NYHA class 4 Is this a current diagnosis for this admission?: Yes (7) Acute renal failure superimposed on stage 3 chronic kidney disease Is this a current diagnosis for this admission?: Yes (8) COPD (chronic obstructive pulmonary disease) Qualifiers: COPD type: COPD with acute exacerbation Qualified Code(s): J44.1 - Chronic obstructive pulmonary disease with (acute) exacerbation Is this a current diagnosis for this admission?: Yes (9) Elevated troponin Is this a current diagnosis for this admission?: Yes (10) Hypertension Qualifiers: Hypertension type: essential hypertension Qualified Code(s): I10 - Essential (primary) hypertension Is this a current diagnosis for this admission?: Yes (11) Venous stasis Is this a current diagnosis for this admission?: Yes (12) Scabies Is this a current diagnosis for this admission?: Yes Palliative care consulted given patient's multiple comorbidities and overall poor functional state. 05/30/2019 Patient completed his dialysis today unfortunately he was not able to be transferred to [facility] facility because he was rejected at [facility] Patient has also been rejected at [facility] Patient will need dialysis once discharged from the hospital Today's BUN is 65 creatinine 6.34 Calcium 8.6 Cultures have showed no growth in 5 days Wound culture from right foot grew out staph aureus but this is been 18 days ago Patient is currently on no antibiotics Patient had a right permacath placed on 05/29/2019 05/31/2019 Sleeping but arouses easily Hemodynamically stable temperature 97.8 pulse 62, blood pressure 126/55, Patient's oxygen saturations are in the mid 90s but requires 5 L of nasal cannula. FiO2 of 40% Try to wean patient down to 3 L. If we cannot do this successfully I will repeat a blood gas Patient did receive hemodialysis yesterday Patient waiting [facility] placement 06/01/2019 Patient is very much awake and alert and conversant. Oriented. Patient tells me this morning that he wants to go to a rehab unit when he is discharge. He shows me a brochure from [facility] Patient's vital signs are extremely stable. Will however need oxygen at 2-3 L at the time of discharge He will need no antibiotics at time of discharge. Patient will need to continue dialysis per nephrology's suggestions Patient's white count is down to 11,000, recent arterial blood gas is basically normal, last set of blood cultures were negative x5 days Patient is stable for discharge to facility 06/02/2019 Patient will possibly get a bed offer at [facility] Patient is undergoing dialysis on Sunday No indication for antibiotics Neurologically intact Labs are stable as one would expect for a dialysis patient Patient is able to maintain oxygen saturations in the upper 90s on 2 L nasal cannula. I suspect he could even gradually be weaned lower time permitting 06/03/2019 Complains of nausea and vomiting. CT scan of the abdomen pelvis negative for any bowel obstruction. Still awaiting placement. Continue current medications. 06/04/2019 Persistent vomiting. Today he threw up dark liquid emesis. Will start IV Protonix 40 mg twice daily. Consult surgery for possible EGD. Monitor H&H and transfuse if needed. 06/05/2019 Nausea and vomiting appears to be improving. He said he tolerated some liquids this morning for breakfast. Hemoglobin has been stable. Pending surgery evaluation for possible EGD. 06/06/2019 Hemoptysis and acute blood loss anemia. Blood transfusion ordered by Dr. Barker. EGD planned by Dr. Issa. Dr. Vidal saw and examined the patient and declined admission to the ICU. Patient is high risk for decompensation. I prefer for him to be transferred to the ICU but Dr. Vidal declined. 06/07/2019 Had an EGD yesterday positive for GERD and esophagitis. Received units of blood yesterday. Had hemodialysis yesterday. Had some breakfast today. Despite poor appetite he did not vomit. 06/08/2019 Patient still symptomatic. Poor oral intake. Persistent nausea and vomiting. Will add Carafate.
--- NOTE | 2019-06-09 09:48 | PDOC PROGRESS REPORT ---
Subjective Progress Note for:: 06/09/19 Subjective:: Events over the weekend reviewed. Patient had hematemesis starting June 05 and underwent EGD in May 2017 showing GERD and esophagitis. Patient required blood transfusion. Patient currently on sucralfate and pantoprazole. This morning he said he has not had any nausea nor vomiting. 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 He denies any abdominal pain. Patient has made a significant good urine output of 1650 ml for the past 24 hours much improved compared to the last few days. His kidney function is also being maintained considering that this last dialysis was last Sunday. He seems to be very comfortable and not in any kind of respiratory distress. Reason For Visit: HEART FAILURE Physical Exam Vital Signs: Temp Pulse Resp BP Pulse Ox 97.6 F 83 16 154/53 H 95 06/09/19 07:33 06/09/19 07:33 06/09/19 07:33 06/09/19 07:33 06/09/19 07:33 Pulse Oximeter Continuous Start: 05/31/19 13:23 Freq: RTQ4 Status: Complete Protocol: Document 06/07/19 08:39 [facility] (Rec: 06/07/19 08:39 [facility] [id number]) Pulse Oximetry Assessment Oxygen Saturation (92-100) 94 Oxygen Flow Rate (L/min) 2.5 Oxygen Delivery Method Nasal Cannula Equipment Usage Equipment Standby Continuous SpO2 Machine # 1 Intake & Output 06/08/19 06/09/19 06/10/19 06:59 06:59 06:59 Intake Total 722 1298 Output Total 750 1650 Balance -28 352 Weight 119.3 kg 118 kg Exam: General appearance: PRESENT: no acute distress, cooperative, well-developed, well-nourished Head exam: PRESENT: atraumatic, normocephalic Eye exam: PRESENT: conjunctiva slightly pale, PERRLA. ABSENT: scleral icterus Neck exam: ABSENT: JVD Respiratory exam: PRESENT: Diminished breath sounds. Few basal crackles ABSENT: rhonchi, unlabored, wheezes Cardiovascular exam: PRESENT: Regular rate rhythm -+S1, +S2. ABSENT: diastolic murmur, systolic murmur GI/Abdominal exam: PRESENT: normal bowel sounds, soft. ABSENT: guarding, mass, tenderness Extremities exam: Trace bilateral lower extremity pitting edema much improved compared to couple weeks ago Neurological exam: PRESENT: alert, awake, oriented to person, place and time. Skin exam: PRESENT: dry, warm, stasis dermatitis changes unchanged on bilateral lower extremities Cardiovascular exam: PRESENT: +S1, +S2 GI/Abdominal exam: PRESENT: normal bowel sounds, soft. ABSENT: guarding, organomegaly, tenderness Results Laboratory Results: 06/09/19 05:38 06/09/19 05:38 06/09/19 06/09/19 05:38 05:38 WBC 6.5 RBC 3.73 L Hgb 10.0 L Hct 30.5 L MCV 82 MCH 26.8 L MCHC 32.7 RDW 25.6 H Plt Count 290 Sodium 133.1 L Potassium 4.1 Chloride 95 L Carbon Dioxide 30 Anion Gap 8 BUN 32 H Creatinine 2.32 H Est GFR ( Amer) 35 L Glucose 84 Calcium 8.5 05/12/19 05/12/19 05/13/19 12:00 18:31 00:16 Creatine Kinase CK-MB (CK-2) Troponin I 0.039 0.041 0.039 NT-Pro-B Natriuret Pep 8970 H 05/13/19 05/14/19 05/19/19 09:35 04:26 17:45 Creatine Kinase 230 H CK-MB (CK-2) 4.88 H Troponin I 0.047 NT-Pro-B Natriuret Pep 60026 H 06/06/19 06/06/19 06/06/19 07:03 07:03 12:23 Creatine Kinase < 20 L < 20 L CK-MB (CK-2) 1.21 Troponin I 0.016 NT-Pro-B Natriuret Pep 06/06/19 06/06/19 06/06/19 12:23 19:41 19:41 Creatine Kinase < 20 L CK-MB (CK-2) 1.11 1.12 Troponin I 0.015 0.016 NT-Pro-B Natriuret Pep Impressions: Renal Artery Duplex 05/20/19 06:00 IMPRESSION: Nondiagnostic study Chest X-Ray 05/20/19 09:58 IMPRESSION: Pulmonary edema pattern KUB X-Ray 05/23/19 00:00 IMPRESSION: NO RADIOGRAPHIC EVIDENCE FOR ACUTE ABDOMINAL DISEASE. Guidance Fluoroscopy 05/29/19 00:00 IMPRESSION: IMAGE(S) OBTAINED DURING PROCEDURE. Abdomen/Pelvis CT 06/03/19 12:27 IMPRESSION: 1. Basilar lung changes as above. Given history of significant nausea and vomiting, this could be due to aspiration pneumonia. A component of cardiogenic edema is also in the differential. 2. No distended bowel loops to suggest obstruction. There is mild ascites. Assessment & Plan - Diagnosis (1) Acute kidney injury superimposed on chronic kidney disease Is this a current diagnosis for this admission?: Yes Plan: This is most likely secondary to multifactorial acute tubular necrosis. About 2 to 3 weeks ago the patient was uremic, anuric and encephalopathic so he was initiated on acute renal replacement therapy with acute hemodialysis on May 20. His last dialysis was June 05. Baseline creatinine around 1.6-1.8. His kidney function is significantly improved and stable over the weekend with a BUN of 32 and creatinine of 2.32 with EGFR of 29. His BUN and creatinine peaked to 131 and 4.07 couple weeks ago. Patient's urine output is also significantly improved for the past 24 hours. We initially thought of the patient has reached a stage of end-stage renal disease requiring chronic dialysis treatment but currently it appears that the patient just started showing renal recovery. I will hold off on doing dialysis treatment today and will closely monitor for further need for any renal replacement therapy moving forward. (2) Esophagitis Is this a current diagnosis for this admission?: Yes Plan: On sucralfate and pantoprazole. (3) Hypertension Qualifiers: Hypertension type: essential hypertension Qualified Code(s): I10 - Essential (primary) hypertension Is this a current diagnosis for this admission?: Yes Plan: Fairly controlled. (4) Metabolic encephalopathy Is this a current diagnosis for this admission?: Yes Plan: This was secondary to uremia and hypoxia. Resolved currently and back to baseline mental status. (5) Acute combined systolic and diastolic congestive heart failure, NYHA class 4 Is this a current diagnosis for this admission?: Yes Plan: Patient has left ventricular ejection fraction of 25% and grade 1/4 diastolic dysfunction. Patient had been on IV dobutamine couple weeks ago. He is currently on maintenance furosemide. Dr. Lara on board. (6) Acute respiratory failure with hypoxia Is this a current diagnosis for this admission?: Yes Plan: This is secondary to congestive heart failure with increasing pulmonary edema. Currently resolved. (7) Pulmonary hypertension Is this a current diagnosis for this admission?: Yes Plan: Very severe. (8) Hyperphosphatemia Is this a current diagnosis for this admission?: Yes (9) Hypermagnesemia Is this a current diagnosis for this admission?: Yes (10) Elevated liver enzymes Is this a current diagnosis for this admission?: Yes Plan: Could be due to hepatic congestion due to severe cardiomyopathy. (11) Anemia Is this a current diagnosis for this admission?: Yes Plan: Worsened by acute illness. Patient was transfused over the weekend due to esophagitis. (12) Cellulitis, leg Qualifiers: Laterality: unspecified laterality Qualified Code(s): L03.119 - Cellulitis of unspecified part of limb Is this a current diagnosis for this admission?: Yes Plan: Completed IV antibiotics per hospitalist service. (13) Foot ulcer, right Qualifiers: Non-pressure ulcer stage: unspecified non-pressure ulcer stage Qualified Code(s): L97.519 - Non-pressure chronic ulcer of other part of right foot with unspecified severity Is this a current diagnosis for this admission?: Yes (14) COPD (chronic obstructive pulmonary disease) Qualifiers: COPD type: COPD with acute exacerbation Qualified Code(s): J44.1 - Chronic obstructive pulmonary disease with (acute) exacerbation Is this a current diagnosis for this admission?: Yes (15) Peripheral vascular disease Is this a current diagnosis for this admission?: Yes Plan: Arterial duplex showed moderately hemodynamically significant lesions in bilateral lower extremities. (16) Stasis dermatitis of both legs Is this a current diagnosis for this admission?: Yes (17) Scabies Is this a current diagnosis for this admission?: Yes Plan: Treated with permethrin by hospitalist. (18) Hearing loss Is this a current diagnosis for this admission?: Yes - Time Time with patient: 15-25 minutes
[2019-06-09] MEDS: ASPIRIN 81 MG TABLET, ENT COATED PO SCH (09:49)
[2019-06-09] MEDS: GABAPENTIN 300 MG CAPSULE PO SCH (09:49)
[2019-06-09] MEDS: PANTOPRAZOLE SODIUM 40 MG VIAL IV SCH ×2 (09:49→22:28)
[2019-06-09] MEDS: METOPROLOL SUCCINATE 25 MG TAB.SR.24H PO SCH ×2 (09:49→22:28)
[2019-06-09] MEDS: THIAMINE HCL 100 MG TABLET PO SCH (09:49)
[2019-06-09] MEDS: MULTIVITAMIN TABLET PO SCH (09:50)
[2019-06-09] MEDS: PAROXETINE HCL 20 MG TABLET PO SCH ×2 (09:50→09:51)
[2019-06-09] MEDS: FUROSEMIDE 40 MG TABLET PO SCH ×2 (09:50→17:20)
[2019-06-09] MEDS: VITAMIN B COMPLEX TABLET PO SCH (09:50)
[2019-06-09] MEDS: NITROGLYCERIN 15 MG (0.6 MG/1 HR) PATCH.TD24 TD SCH (09:51)
[2019-06-09] MEDS: FLUTICASONE/UMECLIDIN/VILANTER 100-62.5-25 MCG/DOSE IH SCH (09:52)
[2019-06-09] MEDS: MINERAL OIL/PETROLATUM,WHITE CREAM 114 GM TP SCH (09:54)
--- NOTE | 2019-06-09 22:17 | Progress Note ---
Provider Note Provider Note: CARDIOLOGY PROGRESS NOTE by Dr. Radha Lara on 06/09/2019. OBJECTIVE: The patient has no further nausea vomiting. He wants to go home. I have pointed out the fact that the patient lives alone and would not be able to take care of himself. The best scenario for the patient at least in the short- term is to be in a rehab facility. There is no chest pain or discomfort. There is no shortness of breath. There is no PND orthopnea or leg edema. There is no atrial or ventricular arrhythmia seen on the monitor. PHYSICAL EXAMINATION: The patient appears to be chronically ill. At present in no acute distress Selected Entries 06/09/19 16:10 Temperature 98.5 F Temperature Oral Source Respiratory 17 Rate Blood Pressure 151/55 H Blood Pressure 87 Mean BP Location Left Arm BP Position Sitting O2 Sat by Pulse 96 Oximetry Oxygen Flow 2.50 Rate Oxygen Delivery Nasal Cannula Method HEAD: Head is atraumatic normocephalic. Eyes: Pupils are equal round regular reactive light accommodation extraocular movements are normal there is no congenital pallor there is no scleral icterus. Ears: External auditory canals are clear, there are no lesions of the pinna. Nose: No deviated nasal septum and no inflammation of the nasal mucous membrane. Mouth: Mucous membranes of mouth are moist tongue is moist there is no ulcers there is no bleeding from the gums. Throat: There is no redness of the oropharynx there is no exudates. Skin: There is no petechia or ecchymosis there is no skin lesions or skin rashes. Neck: Neck is supple there is JVD present. Carotids equal there is no bruit there is no lymphadenopathy there is no neck stiffness. There is no goiter trachea central lungs: Lungs show diminished air entry and prolonged expiration. Scattered rhonchi and wheezing present. There is no no bibasilar rales of CHF. Few dry crackles in the right base. There is no chest wall tenderness. HEART: S1-S2 is heard there is no S3 gallop there is no S4 gallop S1 is of normal intensity. There is no rub. The systolic murmur of MR and TR. There is no prosthetic valve clicks heard. Abdomen: Abdomen is soft, mildly distended, no definite ascites. There is no hepatosplenomegaly. Bowel sounds well heard there is no tender areas of masses. There is no rebound guarding or rigidity. Extremities: Femorals are slightly diminished, there is no bruits. Leg pulses are diminished. There is trace 2- edema, with venous stasis dermatitis. There is no DVT or cellulitis there is no cyanosis or clubbing there is no DVT or cellulitis. There is no calf tenderness. 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 But in spite of this he has slow mentation. Psychiatric: The patient judgment and insight are intact and his affect. Labs- All tests 24 hr 06/09/19 06/09/19 05:38 05:38 WBC 6.5 RBC 3.73 L Hgb 10.0 L Hct 30.5 L MCV 82 MCH 26.8 L MCHC 32.7 RDW 25.6 H Plt Count 290 Sodium 133.1 L Potassium 4.1 Chloride 95 L Carbon Dioxide 30 Anion Gap 8 BUN 32 H Creatinine 2.32 H Est GFR ( Amer) 35 L Est GFR (MDRD) Non-Af 29 L Glucose 84 Calcium 8.5 Chest X-Ray 05/12/19 11:53 IMPRESSION: No acute cardiopulmonary process. Chest X-Ray 05/14/19 00:00 IMPRESSION: No acute cardiopulmonary process. Chest X-Ray 05/15/19 15:34 IMPRESSION: Right jugular central line tip SVC. No Pneumothorax Renal Artery Duplex 05/20/19 06:00 IMPRESSION: Nondiagnostic study Chest X-Ray 05/20/19 09:58 IMPRESSION: Pulmonary edema pattern KUB X-Ray 05/23/19 00:00 IMPRESSION: NO RADIOGRAPHIC EVIDENCE FOR ACUTE ABDOMINAL DISEASE. Guidance Fluoroscopy 05/29/19 00:00 IMPRESSION: IMAGE(S) OBTAINED DURING PROCEDURE. Abdomen/Pelvis CT 06/03/19 12:27 IMPRESSION: 1. Basilar lung changes as above. Given history of significant nausea and vomiting, this could be due to aspiration pneumonia. A component of cardiogenic edema is also in the differential. 2. No distended bowel loops to suggest obstruction. There is mild ascites. iMPRESSION/RECOMMENDATION: 1. Acute respiratory failure secondary to combination of acute on chronic systolic heart failure, acute renal failure causing volume overload, acute exacerbation of COPD, and severe pulmonary hypertension, this is immensely improved and the patient is on nasal oxygen and not on BiPAP anymore. 2. Acute on chronic systolic heart failure. This is resolved with the patient being on dialysis. His blood pressure has come up. Hence will discuss with nephrology to see if we can start him on a JOSE D inhibitor. Continue Toprol-XL. His renal artery Dopplers for renal artery stenosis remains negative albeit poor quality study. At present the patient is compensated from his heart failure. 3. Acute exacerbation COPD: This is resolved. 4. Hypertension: At present blood pressure reasonable. 5. Severe pulmonary hypertension: He is on nitrates and hence cannot use sildenafil. Also his blood pressure is low and hence cannot place him on a calcium channel laurie especially in view of associated severe LV dysfunction, and cannot increase the patient's hydralazine due to low blood pressure. Will discuss with nephrology since the patient is on dialysis if ARB daily started instead of the hydralazine. 6. Acute on chronic renal failure. Avoid nephrotoxic drugs. The patient has been started on dialysis, in spite of this patient's renal function is deteriorating. The patient is now dialysis dependent and has reached end-stage renal disease. 7. Bipolar disorder 8. Tobacco abuse disorder. 9 coronary artery disease: History of coronary bypass graft surgery: No angina and troponin so far is not elevated. 10. Peripheral vascular disease: This will be addressed later on. 11. History of valvular repair: Details not available. Try to contact [facility] but they say they have not heard of the patient, and have no records on him. 12. Severe hearing loss: 13. Scabies. This is resolved. 14. Hematemesis and nausea. This is resolved. No recurrence. Medications reviewed. Medical regimen and management plan discussed with attending physician. Discussed with nephrology. Medical decision making is of moderate complexity. 40 minutes spent as patient more than 50% time spent in direct patient care. Patient awaiting placement in a rehab facility. Will follow.
[2019-06-09] MEDS: QUETIAPINE FUMARATE 100 MG TABLET PO SCH (22:27)
[2019-06-10] MEDS: HEPARIN SOD (PORCINE) 5,000 UNIT/ML 1 ML VIAL SUBCUT SCH ×3 (05:42→21:50)
[2019-06-10 06:16] LABS: ALBUMIN 2.7 g/dL (3.5-5.0); ANION GAP 7 (5-19); BLOOD UREA NITROGEN 37 mg/dL (7-20); CALCIUM 8.2 mg/dL (8.4-10.2); CARBON DIOXIDE 31 mmol/L (22-30); CHLORIDE 92 mmol/L (98-107); GLUCOSE 108 mg/dL (75-110); PHOSPHORUS 3.6 mg/dL (2.5-4.5); POTASSIUM 3.9 mmol/L (3.6-5.0)
[2019-06-10] MEDS: SUCRALFATE 1 GM TABLET PO SCH ×5 (07:56→22:50)
[2019-06-10] MEDS: METOPROLOL SUCCINATE 25 MG TAB.SR.24H PO SCH ×2 (09:55→22:50)
[2019-06-10] MEDS: FLUTICASONE/UMECLIDIN/VILANTER 100-62.5-25 MCG/DOSE IH SCH (10:09)
[2019-06-10] MEDS: NITROGLYCERIN 15 MG (0.6 MG/1 HR) PATCH.TD24 TD SCH (10:09)
[2019-06-10] MEDS: PAROXETINE HCL 20 MG TABLET PO SCH ×2 (10:10→10:11)
[2019-06-10] MEDS: VITAMIN B COMPLEX TABLET PO SCH (10:10)
[2019-06-10] MEDS: GABAPENTIN 300 MG CAPSULE PO SCH (10:10)
[2019-06-10] MEDS: FUROSEMIDE 40 MG TABLET PO SCH ×2 (10:11→17:09)
[2019-06-10] MEDS: MULTIVITAMIN TABLET PO SCH (10:11)
[2019-06-10] MEDS: MINERAL OIL/PETROLATUM,WHITE CREAM 114 GM TP SCH (10:11)
[2019-06-10] MEDS: PANTOPRAZOLE SODIUM 40 MG VIAL IV SCH ×2 (10:11→21:50)
[2019-06-10] MEDS: ASPIRIN 81 MG TABLET, ENT COATED PO SCH (10:11)
[2019-06-10] MEDS: THIAMINE HCL 100 MG TABLET PO SCH (10:11)
[2019-06-10] MEDS: ONDANSETRON HCL INJ/PF 4 MG/2 ML SDV IV PRN (11:42)
--- NOTE | 2019-06-10 13:29 | PDOC PROGRESS REPORT ---
Subjective Progress Note for:: 06/10/19 Reason For Visit: HEART FAILURE 06/10/2019 Patient was admitted to the hospital approximately 29 days ago for shortness of breath and has had multiple complications Physical Exam Vital Signs: Temp Pulse Resp BP Pulse Ox 98.7 F 96 16 148/51 H 92 06/10/19 11:26 06/10/19 11:26 06/10/19 11:26 06/10/19 11:26 06/10/19 11:26 Pulse Oximeter Continuous Start: 05/31/19 13:23 Freq: RTQ4 Status: Complete Protocol: Document 06/07/19 08:39 [facility] (Rec: 06/07/19 08:39 [facility] [id number]) Pulse Oximetry Assessment Oxygen Saturation (92-100) 94 Oxygen Flow Rate (L/min) 2.5 Oxygen Delivery Method Nasal Cannula Equipment Usage Equipment Standby Continuous SpO2 Machine # 1 Intake & Output 06/09/19 06/10/19 06/11/19 06:59 06:59 06:59 Intake Total 1298 1448 Output Total 1650 1375 Balance -352 73 Weight 118 kg 118.2 kg General appearance: PRESENT: no acute distress, mild distress Respiratory exam: PRESENT: clear to auscultation torsten. ABSENT: rales, rhonchi, wheezes Cardiovascular exam: PRESENT: RRR. ABSENT: diastolic murmur, rubs, systolic murmur GI/Abdominal exam: PRESENT: soft Neurological exam: PRESENT: alert, awake, oriented to person, oriented to place, oriented to time, oriented to situation, CN II-XII grossly intact. ABSENT: eric r sensory deficit Psychiatric exam: PRESENT: appropriate affect, normal mood. ABSENT: homicidal ideation, suicidal ideation Results Laboratory Results: 06/09/19 05:38 06/10/19 05:42 06/10/19 05:42 Sodium 130.3 L Potassium 3.9 Chloride 92 L Carbon Dioxide 31 H Anion Gap 7 BUN 37 H Creatinine 2.19 H Est GFR ( Amer) 37 L Glucose 108 Calcium 8.2 L Phosphorus 3.6 Magnesium 1.4 L Albumin 2.7 L 05/12/19 05/12/19 05/13/19 12:00 18:31 00:16 Creatine Kinase CK-MB (CK-2) Troponin I 0.039 0.041 0.039 NT-Pro-B Natriuret Pep 8970 H 05/13/19 05/14/19 05/19/19 09:35 04:26 17:45 Creatine Kinase 230 H CK-MB (CK-2) 4.88 H Troponin I 0.047 NT-Pro-B Natriuret Pep 07742 H 06/06/19 06/06/19 06/06/19 07:03 07:03 12:23 Creatine Kinase < 20 L < 20 L CK-MB (CK-2) 1.21 Troponin I 0.016 NT-Pro-B Natriuret Pep 06/06/19 06/06/19 06/06/19 12:23 19:41 19:41 Creatine Kinase < 20 L CK-MB (CK-2) 1.11 1.12 Troponin I 0.015 0.016 NT-Pro-B Natriuret Pep Impressions: Renal Artery Duplex 05/20/19 06:00 IMPRESSION: Nondiagnostic study Chest X-Ray 05/20/19 09:58 IMPRESSION: Pulmonary edema pattern KUB X-Ray 05/23/19 00:00 IMPRESSION: NO RADIOGRAPHIC EVIDENCE FOR ACUTE ABDOMINAL DISEASE. Guidance Fluoroscopy 05/29/19 00:00 IMPRESSION: IMAGE(S) OBTAINED DURING PROCEDURE. Abdomen/Pelvis CT 06/03/19 12:27 IMPRESSION: 1. Basilar lung changes as above. Given history of significant nausea and vomiting, this could be due to aspiration pneumonia. A component of cardiogenic edema is also in the differential. 2. No distended bowel loops to suggest obstruction. There is mild ascites. Assessment and Plan - Diagnosis (1) Acute respiratory failure with hypoxia Is this a current diagnosis for this admission?: Yes (2) Bipolar disorder Is this a current diagnosis for this admission?: No (3) Foot ulcer, right Qualifiers: Non-pressure ulcer stage: unspecified non-pressure ulcer stage Qualified Code(s): L97.519 - Non-pressure chronic ulcer of other part of right foot with unspecified severity Is this a current diagnosis for this admission?: Yes (4) Lactic acidosis Is this a current diagnosis for this admission?: Yes (5) Abdominal pain Qualifiers: Abdominal location: epigastric Qualified Code(s): R10.13 - Epigastric pain Is this a current diagnosis for this admission?: Yes (6) Acute combined systolic and diastolic congestive heart failure, NYHA class 4 Is this a current diagnosis for this admission?: Yes (7) Acute renal failure superimposed on stage 3 chronic kidney disease Is this a current diagnosis for this admission?: Yes (8) COPD (chronic obstructive pulmonary disease) Qualifiers: COPD type: COPD with acute exacerbation Qualified Code(s): J44.1 - Chronic obstructive pulmonary disease with (acute) exacerbation Is this a current diagnosis for this admission?: Yes (9) Elevated troponin Is this a current diagnosis for this admission?: Yes (10) Hypertension Qualifiers: Hypertension type: essential hypertension Qualified Code(s): I10 - Essential (primary) hypertension Is this a current diagnosis for this admission?: Yes (11) Venous stasis Is this a current diagnosis for this admission?: Yes (12) Scabies Is this a current diagnosis for this admission?: Yes - Plan Summary Summary: (1) Acute respiratory failure with hypoxia Is this a current diagnosis for this admission?: Yes (2) Bipolar disorder Is this a current diagnosis for this admission?: Yes (3) Foot ulcer, right Qualifiers: Non-pressure ulcer stage: unspecified non-pressure ulcer stage Qualified Code(s): L97.519 - Non-pressure chronic ulcer of other part of right foot with unspecified severity Is this a current diagnosis for this admission?: Yes (4) Lactic acidosis Is this a current diagnosis for this admission?: Yes (5) Abdominal pain Qualifiers: Abdominal location: epigastric Qualified Code(s): R10.13 - Epigastric pain Is this a current diagnosis for this admission?: Yes (6) Acute combined systolic and diastolic congestive heart failure, NYHA class 4 Is this a current diagnosis for this admission?: Yes (7) Acute renal failure superimposed on stage 3 chronic kidney disease Is this a current diagnosis for this admission?: Yes (8) COPD (chronic obstructive pulmonary disease) Qualifiers: COPD type: COPD with acute exacerbation Qualified Code(s): J44.1 - Chronic obstructive pulmonary disease with (acute) exacerbation Is this a current diagnosis for this admission?: Yes (9) Elevated troponin Is this a current diagnosis for this admission?: Yes (10) Hypertension Qualifiers: Hypertension type: essential hypertension Qualified Code(s): I10 - Essential (primary) hypertension Is this a current diagnosis for this admission?: Yes (11) Venous stasis Is this a current diagnosis for this admission?: Yes (12) Scabies Is this a current diagnosis for this admission?: Yes Palliative care consulted given patient's multiple comorbidities and overall poor functional state. 05/30/2019 Patient completed his dialysis today unfortunately he was not able to be transferred to shelter facility because he was rejected at [facility] Patient has also been rejected at [facility] Patient will need dialysis once discharged from the hospital Today's BUN is 65 creatinine 6.34 Calcium 8.6 Cultures have showed no growth in 5 days Wound culture from right foot grew out staph aureus but this is been 18 days ago Patient is currently on no antibiotics Patient had a right permacath placed on 05/29/2019 05/31/2019 Sleeping but arouses easily Hemodynamically stable temperature 97.8 pulse 62, blood pressure 126/55, Patient's oxygen saturations are in the mid 90s but requires 5 L of nasal cannula. FiO2 of 40% Try to wean patient down to 3 L. If we cannot do this successfully I will repeat a blood gas Patient did receive hemodialysis yesterday Patient waiting [facility] placement 06/01/2019 Patient is very much awake and alert and conversant. Oriented. Patient tells me this morning that he wants to go to a rehab unit when he is discharge. He shows me a brochure from [facility] Patient's vital signs are extremely stable. Will however need oxygen at 2-3 L at the time of discharge He will need no antibiotics at time of discharge. Patient will need to continue dialysis per nephrology's suggestions Patient's white count is down to 11,000, recent arterial blood gas is basically normal, last set of blood cultures were negative x5 days Patient is stable for discharge to facility 06/02/2019 Patient will possibly get a bed offer at [facility] Patient is undergoing dialysis on Sunday No indication for antibiotics Neurologically intact Labs are stable as one would expect for a dialysis patient Patient is able to maintain oxygen saturations in the upper 90s on 2 L nasal cannula. I suspect he could even gradually be weaned lower time permitting 06/03/2019 Complains of nausea and vomiting. CT scan of the abdomen pelvis negative for any bowel obstruction. Still awaiting placement. Continue current medications. 06/04/2019 Persistent vomiting. Today he threw up dark liquid emesis. Will start IV Protonix 40 mg twice daily. Consult surgery for possible EGD. Monitor H&H and transfuse if needed. 06/05/2019 Nausea and vomiting appears to be improving. He said he tolerated some liquids this morning for breakfast. Hemoglobin has been stable. Pending surgery evaluation for possible EGD. 06/06/2019 Hemoptysis and acute blood loss anemia. Blood transfusion ordered by Dr. Barker. EGD planned by Dr. Issa. Dr. Vidal saw and examined the patient and declined admission to the ICU. Patient is high risk for decompensation. I prefer for him to be transferred to the ICU but Dr. Vidal declined. 06/07/2019 Had an EGD yesterday positive for GERD and esophagitis. Received units of blood yesterday. Had hemodialysis yesterday. Had some breakfast today. Despite poor appetite he did not vomit. 06/08/2019 Patient still symptomatic. Poor oral intake. Persistent nausea and vomiting. Will add Carafate. 06/10/2019 Patient continues to have persistent vomiting with meals. Patient is on Carafate before meals and at bedtime as well as Protonix 40 mg IV every 12. I wanted to add Reglan but with his SSRIs this was contraindicated. Instead I am going to change his diet to a full liquid, and make his Zofran every 6 hours scheduled instead of as needed. Patient did have an upper endoscopy on 05 June that showed esophagitis Temperature 98.8 pulse 56 blood pressure 134/55, O2 sat 99% on 2-1/2 L Renal function continues to improve BUN is at 37 and creatinine is at 2.19 which is a tremendous improvement Dialysis is being decided on a day by day basis by nephrology. - Time Time Spent with patient: 25-34 minutes
[2019-06-10] MEDS: ONDANSETRON HCL INJ/PF 4 MG/2 ML SDV IV SCH ×2 (15:13→20:22)
--- NOTE | 2019-06-10 18:20 | Progress Note ---
Provider Note Provider Note: CARDIOLOGY PROGRESS NOTE by Dr. Radha Lara on 06/09/19292019. OBJECTIVE: The patient continues to have vomiting and nausea. He is being treated for this. He denies any chest pain or discomfort. There is no shortness of breath. There is no PND orthopnea or arrhythmias seen. His right leg ulcer is improving. PHYSICAL EXAMINATION: Patient appears to be chronically ill. In no acute distress. Selected Entries 06/10/19 15:05 Temperature 99.8 F Temperature Oral Source Pulse Rate 64 Respiratory 16 Rate Blood Pressure 148/53 H Blood Pressure 84 Mean BP Location Left Arm BP Position Supine O2 Sat by Pulse 91 L Oximetry Oxygen Flow 2.50 Rate Oxygen Delivery Nasal Cannula Method HEAD: Head is atraumatic normocephalic. Eyes: Pupils are equal round regular reactive light accommodation extraocular movements are normal there is no congenital pallor there is no scleral icterus. Ears: External auditory canals are clear, there are no lesions of the pinna. Nose: No deviated nasal septum and no inflammation of the nasal mucous membrane. Mouth: Mucous membranes of mouth are moist tongue is moist there is no ulcers there is no bleeding from the gums. Throat: There is no redness of the oropharynx there is no exudates. Skin: There is no petechia or ecchymosis there is no skin lesions or skin rashes. Neck: Neck is supple there is JVD present. Carotids equal there is no bruit there is no lymphadenopathy there is no neck stiffness. There is no goiter trachea central lungs: Lungs show diminished air entry and prolonged expiration. Scattered rhonchi and wheezing present. There is no no bibasilar rales of CHF. Few dry crackles in the right base. There is no chest wall tenderness. HEART: S1-S2 is heard there is no S3 gallop there is no S4 gallop S1 is of normal intensity. There is no rub. The systolic murmur of MR and TR. There is no prosthetic valve clicks heard. Abdomen: Abdomen is soft, mildly distended, no definite ascites. There is no hepatosplenomegaly. Bowel sounds well heard there is no tender areas of masses. There is no rebound guarding or rigidity. Extremities: Femorals are slightly diminished, there is no bruits. Leg pulses are diminished. There is trace 2- edema, with venous stasis dermatitis. There is no DVT or cellulitis there is no cyanosis or clubbing there is no DVT or cellulitis. There is no calf tenderness. 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 But in spite of this he has slow mentation. Psychiatric: The patient judgment and insight are intact and his affect. Labs- All tests 24 hr 06/10/19 05:42 Sodium 130.3 L Potassium 3.9 Chloride 92 L Carbon Dioxide 31 H Anion Gap 7 BUN 37 H Creatinine 2.19 H Est GFR ( Amer) 37 L Est GFR (MDRD) Non-Af 31 L Glucose 108 Calcium 8.2 L Phosphorus 3.6 Magnesium 1.4 L Albumin 2.7 L Chest X-Ray 05/12/19 11:53 IMPRESSION: No acute cardiopulmonary process. Chest X-Ray 05/14/19 00:00 IMPRESSION: No acute cardiopulmonary process. Chest X-Ray 05/15/19 15:34 IMPRESSION: Right jugular central line tip SVC. No Pneumothorax Renal Artery Duplex 05/20/19 06:00 IMPRESSION: Nondiagnostic study Chest X-Ray 05/20/19 09:58 IMPRESSION: Pulmonary edema pattern KUB X-Ray 05/23/19 00:00 IMPRESSION: NO RADIOGRAPHIC EVIDENCE FOR ACUTE ABDOMINAL DISEASE. Guidance Fluoroscopy 05/29/19 00:00 IMPRESSION: IMAGE(S) OBTAINED DURING PROCEDURE. Abdomen/Pelvis CT 06/03/19 12:27 IMPRESSION: 1. Basilar lung changes as above. Given history of significant nausea and vomiting, this could be due to aspiration pneumonia. A component of cardiogenic edema is also in the differential. 2. No distended bowel loops to suggest obstruction. There is mild ascites. iMPRESSION/RECOMMENDATION: 1. Acute respiratory failure secondary to combination of acute on chronic systolic heart failure, acute renal failure causing volume overload, acute exacerbation of COPD, and severe pulmonary hypertension, this is immensely improved and the patient is on nasal oxygen and not on BiPAP anymore. 2. Acute on chronic systolic heart failure. This is resolved with the patient being on dialysis. His blood pressure has come up. Hence will discuss with nephrology to see if we can start him on a JOSE D inhibitor. Continue Toprol-XL. His renal artery Dopplers for renal artery stenosis remains negative albeit poor quality study. At present the patient is compensated from his heart failure. 3. Acute exacerbation COPD: This is resolved. 4. Hypertension: At present blood pressure reasonable. 5. Severe pulmonary hypertension: He is on nitrates and hence cannot use sildenafil. Also his blood pressure is low and hence cannot place him on a calcium channel laurie especially in view of associated severe LV dysfunction, and cannot increase the patient's hydralazine due to low blood pressure. Will discuss with nephrology since the patient is on dialysis if ARB daily started instead of the hydralazine. 6. Acute on chronic renal failure. Avoid nephrotoxic drugs. The patient has been started on dialysis, in spite of this patient's renal function is deteriorating. The patient is now dialysis dependent and has reached end-stage renal disease. 7. Bipolar disorder 8. Tobacco abuse disorder. 9 coronary artery disease: History of coronary bypass graft surgery: No angina and troponin so far is not elevated. 10. Peripheral vascular disease: This will be addressed later on. 11. History of valvular repair: Details not available. Try to contact [facility] but they say they have not heard of the patient, and have no records on him. 12. Severe hearing loss: 13. Scabies. This is resolved. 14. Hematemesis and nausea. This is resolved. No recurrence. Medications reviewed. Medical regimen and management plan discussed with attending physician. Discussed with nephrology. Medical decision making is of moderate complexity. 40 minutes spent as patient more than 50% time spent in direct patient care. Patient awaiting placement in a rehab facility. Will follow.
[2019-06-10] MEDS: ACETAMINOPHEN 325 MG TABLET PO PRN (20:23)
--- NOTE | 2019-06-10 21:17 | PDOC PROGRESS REPORT ---
Subjective Progress Note for:: 06/10/19 Subjective:: This morning the patient said he feels tired. Allegedly the patient continues to have some nausea and vomiting so his oral intake is not that great. He does make good urine output with 1375 mL for the past 24 hours. Blood pressure is acceptable. Reason For Visit: ERNESTINE Physical Exam Vital Signs: Temp Pulse Resp BP Pulse Ox 98.6 F 55 L 17 143/63 H 90 L 06/10/19 08:15 06/10/19 08:15 06/10/19 08:15 06/10/19 08:15 06/10/19 08:15 Pulse Oximeter Continuous Start: 05/31/19 13:23 Freq: RTQ4 Status: Complete Protocol: Document 06/07/19 08:39 [facility] (Rec: 06/07/19 08:39 [facility] [id number]) Pulse Oximetry Assessment Oxygen Saturation (92-100) 94 Oxygen Flow Rate (L/min) 2.5 Oxygen Delivery Method Nasal Cannula Equipment Usage Equipment Standby Continuous SpO2 Machine # 1 Intake & Output 06/09/19 06/10/19 06/11/19 06:59 06:59 06:59 Intake Total 1298 1448 Output Total 1650 1375 Balance -352 73 Weight 118 kg 118.2 kg Exam: General appearance: PRESENT: no acute distress, cooperative, well-developed, well-nourished Head exam: PRESENT: atraumatic, normocephalic Eye exam: PRESENT: conjunctiva pale, PERRLA. ABSENT: scleral icterus Neck exam: ABSENT: JVD Respiratory exam: PRESENT: Diminished breath sounds. ABSENT: crackles, rales, rhonchi, unlabored, wheezes Cardiovascular exam: PRESENT: Regular rate rhythm -+S1, +S2. ABSENT: diastolic murmur, systolic murmur GI/Abdominal exam: PRESENT: normal bowel sounds, soft. ABSENT: guarding, mass, tenderness Extremities exam: Trace bilateral lower extremity pitting edema Neurological exam: PRESENT: alert, awake, oriented to person, place and time. Skin exam: PRESENT: dry, warm, unchanged bilateral lower extremity stasis dermatitis skin changes Cardiovascular exam: PRESENT: +S1, +S2 GI/Abdominal exam: PRESENT: normal bowel sounds, soft. ABSENT: guarding, organomegaly, tenderness Results Laboratory Results: 06/09/19 05:38 06/10/19 05:42 06/10/19 05:42 Sodium 130.3 L Potassium 3.9 Chloride 92 L Carbon Dioxide 31 H Anion Gap 7 BUN 37 H Creatinine 2.19 H Est GFR ( Amer) 37 L Glucose 108 Calcium 8.2 L Phosphorus 3.6 Magnesium 1.4 L Albumin 2.7 L 05/12/19 05/12/19 05/13/19 12:00 18:31 00:16 Creatine Kinase CK-MB (CK-2) Troponin I 0.039 0.041 0.039 NT-Pro-B Natriuret Pep 8970 H 05/13/19 05/14/19 05/19/19 09:35 04:26 17:45 Creatine Kinase 230 H CK-MB (CK-2) 4.88 H Troponin I 0.047 NT-Pro-B Natriuret Pep 41617 H 06/06/19 06/06/19 06/06/19 07:03 07:03 12:23 Creatine Kinase < 20 L < 20 L CK-MB (CK-2) 1.21 Troponin I 0.016 NT-Pro-B Natriuret Pep 06/06/19 06/06/19 06/06/19 12:23 19:41 19:41 Creatine Kinase < 20 L CK-MB (CK-2) 1.11 1.12 Troponin I 0.015 0.016 NT-Pro-B Natriuret Pep Impressions: Renal Artery Duplex 05/20/19 06:00 IMPRESSION: Nondiagnostic study Chest X-Ray 05/20/19 09:58 IMPRESSION: Pulmonary edema pattern KUB X-Ray 05/23/19 00:00 IMPRESSION: NO RADIOGRAPHIC EVIDENCE FOR ACUTE ABDOMINAL DISEASE. Guidance Fluoroscopy 05/29/19 00:00 IMPRESSION: IMAGE(S) OBTAINED DURING PROCEDURE. Abdomen/Pelvis CT 06/03/19 12:27 IMPRESSION: 1. Basilar lung changes as above. Given history of significant nausea and vomiting, this could be due to aspiration pneumonia. A component of cardiogenic edema is also in the differential. 2. No distended bowel loops to suggest obstruction. There is mild ascites. Assessment & Plan - Diagnosis (1) Acute kidney injury superimposed on chronic kidney disease Is this a current diagnosis for this admission?: Yes Plan: This is most likely secondary to multifactorial acute tubular necrosis. About 2 to 3 weeks ago the patient was uremic, anuric and encephalopathic so he was initiated on acute renal replacement therapy with acute hemodialysis on May 20. His last dialysis was June 05. Baseline creatinine around 1.6-1.8. His kidney function is significantly improved and stable over the weekend . His BUN and creatinine peaked to 131 and 4.07 couple weeks ago. Today he has a BUN of 37, and creatinine of 2.19 with EGFR of 31. Patient's urine output is also significantly improved . We initially thought of the patient has reached a stage of end-stage renal disease requiring chronic dialysis treatment but currently it appears that the patient just started showing renal recovery. Continue to hold off on dialysis treatment. If the patient's kidney function continues to improve in the next 24 to 48 hours, I do not think he would need renal replacement therapy any longer. At that point we will need to have the PermCath removed prior to him being transferred to a [facility] facility which is the plan. Continue to monitor kidney function for now. (2) Esophagitis Is this a current diagnosis for this admission?: Yes Plan: On sucralfate and pantoprazole. Continues to be symptomatic for this. (3) Hypertension Qualifiers: Hypertension type: essential hypertension Qualified Code(s): I10 - Essential (primary) hypertension Is this a current diagnosis for this admission?: Yes Plan: Fairly controlled. (4) Metabolic encephalopathy Is this a current diagnosis for this admission?: Yes Plan: This was secondary to uremia and hypoxia. Resolved currently and back to baseline mental status. (5) Acute combined systolic and diastolic congestive heart failure, NYHA class 4 Is this a current diagnosis for this admission?: Yes Plan: Patient has left ventricular ejection fraction of 25% and grade 1/4 diastolic dysfunction. Patient had been on IV dobutamine couple weeks ago. He is curre ntly on maintenance furosemide. Dr. Lara on board. (6) Acute respiratory failure with hypoxia Is this a current diagnosis for this admission?: Yes Plan: This is secondary to congestive heart failure with increasing pulmonary edema. Currently resolved. (7) Pulmonary hypertension Is this a current diagnosis for this admission?: Yes Plan: Very severe. (8) Hyperphosphatemia Is this a current diagnosis for this admission?: Yes Plan: Resolved. (9) Hypermagnesemia Is this a current diagnosis for this admission?: Yes Plan: Due to ERNESTINE. Resolved and currently relatively low. Give magnesium supplement as necessary. (10) Elevated liver enzymes Is this a current diagnosis for this admission?: Yes Plan: Could be due to hepatic congestion due to severe cardiomyopathy. (11) Anemia Is this a current diagnosis for this admission?: Yes Plan: Worsened by acute illness. Patient was transfused over the weekend due to esophagitis. (12) Cellulitis, leg Qualifiers: Laterality: unspecified laterality Qualified Code(s): L03.119 - Cellulitis of unspecified part of limb Is this a current diagnosis for this admission?: Yes Plan: Completed IV antibiotics per hospitalist service. (13) Foot ulcer, right Qualifiers: Non-pressure ulcer stage: unspecified non-pressure ulcer stage Qualified Code(s): L97.519 - Non-pressure chronic ulcer of other part of right foot with unspecified severity Is this a current diagnosis for this admission?: Yes (14) COPD (chronic obstructive pulmonary disease) Qualifiers: COPD type: COPD with acute exacerbation Qualified Code(s): J44.1 - Chronic obstructive pulmonary disease with (acute) exacerbation Is this a current diagnosis for this admission?: Yes (15) Peripheral vascular disease Is this a current diagnosis for this admission?: Yes Plan: Arterial duplex showed moderately hemodynamically significant lesions in bilateral lower extremities. (16) Stasis dermatitis of both legs Is this a current diagnosis for this admission?: Yes (17) Scabies Is this a current diagnosis for this admission?: Yes Plan: Treated with permethrin by hospitalist. (18) Hearing loss Is this a current diagnosis for this admission?: Yes - Time Time with patient: 15-25 minutes
[2019-06-10] MEDS: QUETIAPINE FUMARATE 100 MG TABLET PO SCH (22:49)
[2019-06-11] MEDS: ONDANSETRON HCL INJ/PF 4 MG/2 ML SDV IV SCH ×4 (03:00→20:27)
[2019-06-11 06:10] LABS: ANION GAP 6 (5-19); BLOOD UREA NITROGEN 40 mg/dL (7-20); CALCIUM 8.3 mg/dL (8.4-10.2); CARBON DIOXIDE 32 mmol/L (22-30); CHLORIDE 92 mmol/L (98-107); GLUCOSE 80 mg/dL (75-110); POTASSIUM 3.9 mmol/L (3.6-5.0)
[2019-06-11] MEDS: HEPARIN SOD (PORCINE) 5,000 UNIT/ML 1 ML VIAL SUBCUT SCH ×3 (06:59→21:37)
[2019-06-11] MEDS: SUCRALFATE 1 GM TABLET PO SCH ×4 (07:25→22:21)
[2019-06-11] MEDS: THIAMINE HCL 100 MG TABLET PO SCH (09:30)
[2019-06-11] MEDS: GABAPENTIN 300 MG CAPSULE PO SCH (09:30)
[2019-06-11] MEDS: PANTOPRAZOLE SODIUM 40 MG VIAL IV SCH ×2 (09:30→22:21)
[2019-06-11] MEDS: ASPIRIN 81 MG TABLET, ENT COATED PO SCH (09:30)
[2019-06-11] MEDS: VITAMIN B COMPLEX TABLET PO SCH (09:30)
[2019-06-11] MEDS: FLUTICASONE/UMECLIDIN/VILANTER 100-62.5-25 MCG/DOSE IH SCH (09:30)
[2019-06-11] MEDS: MULTIVITAMIN TABLET PO SCH (09:30)
[2019-06-11] MEDS: FUROSEMIDE 40 MG TABLET PO SCH ×3 (09:30→17:42)
[2019-06-11] MEDS: NITROGLYCERIN 15 MG (0.6 MG/1 HR) PATCH.TD24 TD SCH (09:31)
[2019-06-11] MEDS: PAROXETINE HCL 20 MG TABLET PO SCH ×2 (09:32)
[2019-06-11] MEDS: MINERAL OIL/PETROLATUM,WHITE CREAM 114 GM TP SCH (09:32)
[2019-06-11] MEDS: METOPROLOL SUCCINATE 25 MG TAB.SR.24H PO SCH ×2 (09:33→21:38)
--- NOTE | 2019-06-11 12:34 | PDOC PROGRESS REPORT ---
Subjective Progress Note for:: 06/11/19 Reason For Visit: HEART FAILURE Shortness of breath, acute on chronic kidney disease, acute respiratory failure with hypoxia, acute metabolic encephalopathy, abdominal pain, hypertension Physical Exam Vital Signs: Temp Pulse Resp BP Pulse Ox 98.8 F 61 18 114/75 100 06/11/19 11:14 06/11/19 11:14 06/11/19 11:14 06/11/19 11:14 06/11/19 11:14 Pulse Oximeter Continuous Start: 05/31/19 13:23 Freq: RTQ4 Status: Complete Protocol: Document 06/07/19 08:39 [facility] (Rec: 06/07/19 08:39 [facility] [id number]) Pulse Oximetry Assessment Oxygen Saturation (92-100) 94 Oxygen Flow Rate (L/min) 2.5 Oxygen Delivery Method Nasal Cannula Equipment Usage Equipment Standby Continuous SpO2 Machine # 1 Intake & Output 06/10/19 06/11/19 06/12/19 06:59 06:59 06:59 Intake Total 1448 1492 700 Output Total 1375 1225 Balance 73 267 700 Weight 118.2 kg 120.4 kg General appearance: PRESENT: no acute distress Respiratory exam: PRESENT: clear to auscultation torsten. ABSENT: rales, rhonchi, wheezes Cardiovascular exam: PRESENT: RRR. ABSENT: diastolic murmur, rubs, systolic murmur GI/Abdominal exam: PRESENT: soft Neurological exam: PRESENT: alert, awake, oriented to person, oriented to place, oriented to time, oriented to situation, CN II-XII grossly intact. ABSENT: motor sensory deficit Psychiatric exam: PRESENT: appropriate affect, normal mood. ABSENT: homicidal ideation, suicidal ideation Results Laboratory Results: 06/09/19 05:38 06/11/19 05:26 06/11/19 05:26 Sodium 129.8 L Potassium 3.9 Chloride 92 L Carbon Dioxide 32 H Anion Gap 6 BUN 40 H Creatinine 2.40 H Est GFR ( Amer) 34 L Glucose 80 Calcium 8.3 L Magnesium 1.6 05/12/19 05/12/19 05/13/19 12:00 18:31 00:16 Creatine Kinase CK-MB (CK-2) Troponin I 0.039 0.041 0.039 NT-Pro-B Natriuret Pep 8970 H 0305/14/19 05/19/19 09:35 04:26 17:45 Creatine Kinase 230 H CK-MB (CK-2) 4.88 H Troponin I 0.047 NT-Pro-B Natriuret Pep 99466 H 06/06/19 06/06/19 06/06/19 07:03 07:03 12:23 Creatine Kinase < 20 L < 20 L CK-MB (CK-2) 1.21 Troponin I 0.016 NT-Pro-B Natriuret Pep 06/06/19 06/06/19 06/06/19 12:23 19:41 19:41 Creatine Kinase < 20 L CK-MB (CK-2) 1.11 1.12 Troponin I 0.015 0.016 NT-Pro-B Natriuret Pep Impressions: Renal Artery Duplex 05/20/19 06:00 IMPRESSION: Nondiagnostic study Chest X-Ray 05/20/19 09:58 IMPRESSION: Pulmonary edema pattern KUB X-Ray 05/23/19 00:00 IMPRESSION: NO RADIOGRAPHIC EVIDENCE FOR ACUTE ABDOMINAL DISEASE. Guidance Fluoroscopy 05/29/19 00:00 IMPRESSION: IMAGE(S) OBTAINED DURING PROCEDURE. Abdomen/Pelvis CT 06/03/19 12:27 IMPRESSION: 1. Basilar lung changes as above. Given history of significant nausea and vomiting, this could be due to aspiration pneumonia. A component of cardiogenic edema is also in the differential. 2. No distended bowel loops to suggest obstruction. There is mild ascites. Assessment and Plan - Diagnosis (1) Acute respiratory failure with hypoxia Is this a current diagnosis for this admission?: Yes (2) Bipolar disorder Is this a current diagnosis for this admission?: No (3) Foot ulcer, right Qualifiers: Non-pressure ulcer stage: unspecified non-pressure ulcer stage Qualified Code(s): L97.519 - Non-pressure chronic ulcer of other part of right foot with unspecified severity Is this a current diagnosis for this admission?: Yes (4) Lactic acidosis Is this a current diagnosis for this admission?: Yes (5) Abdominal pain Qualifiers: Abdominal location: epigastric Qualified Code(s): R10.13 - Epigastric pain Is this a current diagnosis for this admission?: Yes (6) Acute combined systolic and diastolic congestive heart failure, NYHA class 4 Is this a current diagnosis for this admission?: Yes (7) Acute renal failure superimposed on stage 3 chronic kidney disease Is this a current diagnosis for this admission?: Yes (8) COPD (chronic obstructive pulmonary disease) Qualifiers: COPD type: COPD with acute exacerbation Qualified Code(s): J44.1 - Chronic obstructive pulmonary disease with (acute) exacerbation Is this a current diagnosis for this admission?: Yes (9) Elevated troponin Is this a current diagnosis for this admission?: Yes (10) Hypertension Qualifiers: Hypertension type: essential hypertension Qualified Code(s): I10 - Essential (primary) hypertension Is this a current diagnosis for this admission?: Yes (11) Venous stasis Is this a current diagnosis for this admission?: Yes (12) Scabies Is this a current diagnosis for this admission?: Yes - Plan Summary Summary: (1) Acute respiratory failure with hypoxia Is this a current diagnosis for this admission?: Yes (2) Bipolar disorder Is this a current diagnosis for this admission?: Yes (3) Foot ulcer, right Qualifiers: Non-pressure ulcer stage: unspecified non-pressure ulcer stage Qualified Code(s): L97.519 - Non-pressure chronic ulcer of other part of right foot with unspecified severity Is this a current diagnosis for this admission?: Yes (4) Lactic acidosis Is this a current diagnosis for this admission?: Yes (5) Abdominal pain Qualifiers: Abdominal location: epigastric Qualified Code(s): R10.13 - Epigastric pain Is this a current diagnosis for this admission?: Yes (6) Acute combined systolic and diastolic congestive heart failure, NYHA class 4 Is this a current diagnosis for this admission?: Yes (7) Acute renal failure superimposed on stage 3 chronic kidney disease Is this a current diagnosis for this admission?: Yes (8) COPD (chronic obstructive pulmonary disease) Qualifiers: COPD type: COPD with acute exacerbation Qualified Code(s): J44.1 - Chronic obstructive pulmonary disease with (acute) exacerbation Is this a current diagnosis for this admission?: Yes (9) Elevated troponin Is this a current diagnosis for this admission?: Yes (10) Hypertension Qualifiers: Hypertension type: essential hypertension Qualified Code(s): I10 - Essential (primary) hypertension Is this a current diagnosis for this admission?: Yes (11) Venous stasis Is this a current diagnosis for this admission?: Yes (12) Scabies Is this a current diagnosis for this admission?: Yes Palliative care consulted given patient's multiple comorbidities and overall poor functional state. 05/30/2019 Patient completed his dialysis today unfortunately he was not able to be transferred to residential facility because he was rejected at [facility] Patient has also been rejected at [facility] Patient will need dialysis once discharged from the hospital Today's BUN is 65 creatinine 6.34 Calcium 8.6 Cultures have showed no growth in 5 days Wound culture from right foot grew out staph aureus but this is been 18 days ago Patient is currently on no antibiotics Patient had a right permacath placed on 05/29/2019 05/31/2019 Sleeping but arouses easily Hemodynamically stable temperature 97.8 pulse 62, blood pressure 126/55, Patient's oxygen saturations are in the mid 90s but requires 5 L of nasal cannul a. FiO2 of 40% Try to wean patient down to 3 L. If we cannot do this successfully I will repeat a blood gas Patient did receive hemodialysis yesterday Patient waiting snf placement 06/01/2019 Patient is very much awake and alert and conversant. Oriented. Patient tells me this morning that he wants to go to a rehab unit when he is discharge. He shows me a brochure from [facility] Patient's vital signs are extremely stable. Will however need oxygen at 2-3 L at the time of discharge He will need no antibiotics at time of discharge. Patient will need to continue dialysis per nephrology's suggestions Patient's white count is down to 11,000, recent arterial blood gas is basically normal, last set of blood cultures were negative x5 days Patient is stable for discharge to facility 06/02/2019 Patient will possibly get a bed offer at [facility] Patient is undergoing dialysis on Sunday No indication for antibiotics Neurologically intact Labs are stable as one would expect for a dialysis patient Patient is able to maintain oxygen saturations in the upper 90s on 2 L nasal cannula. I suspect he could even gradually be weaned lower time permitting 06/03/2019 Complains of nausea and vomiting. CT scan of the abdomen pelvis negative for any bowel obstruction. Still awaiting placement. Continue current medications. 06/04/2019 Persistent vomiting. Today he threw up dark liquid emesis. Will start IV Protonix 40 mg twice daily. Consult surgery for possible EGD. Monitor H&H and transfuse if needed. 06/05/2019 Nausea and vomiting appears to be improving. He said he tolerated some liquids this morning for breakfast. Hemoglobin has been stable. Pending surgery evaluation for possible EGD. 06/06/2019 Hemoptysis and acute blood loss anemia. Blood transfusion ordered by Dr. Barker. EGD planned by Dr. Issa. Dr. Vidal saw and examined the patient and declined admission to the ICU. Patient is high risk for decompensation. I prefer for him to be transferred to the ICU but Dr. Vidal declined. 06/07/2019 Had an EGD yesterday positive for GERD and esophagitis. Received units of blood yesterday. Had hemodialysis yesterday. Had some breakfast today. Despite poor appetite he did not vomit. 06/08/2019 Patient still symptomatic. Poor oral intake. Persistent nausea and vomiting. Will add Carafate. 06/10/2019 Patient continues to have persistent vomiting with meals. Patient is on Carafate before meals and at bedtime as well as Protonix 40 mg IV every 12. I wanted to add Reglan but with his SSRIs this was contraindicated. Instead I am going to change his diet to a full liquid, and make his Zofran every 6 hours scheduled instead of as needed. Patient did have an upper endoscopy on 05 June that showed esophagitis Temperature 98.8 pulse 56 blood pressure 134/55, O2 sat 99% on 2-1/2 L Renal function continues to improve BUN is at 37 and creatinine is at 2.19 which is a tremendous improvement Dialysis is being decided on a day by day basis by nephrology. June 11, 2019 Vital signs are extremely stable temperature 98 pulse 56 blood pressure 117/68 oxygen 99% on 2 L nasal cannula She is biggest problem now is his GERD and esophagitis. Currently on Carafate as well as the Protonix Patient vomited the last yesterday evening no vomit this morning with breakfast. Patient currently on a full liquid diet if he does well today at lunch and I will advance his diet tonight. He is also on a scheduled Zofran. I wanted to use Reglan but this is contraindicated with his psych medicines. Once patient's GERD and esophagitis is under control he would be medically stable for discharge. This may be as soon as tomorrow We will try patient on room air and see what his oxygen saturation is. Patient's BUN seems to be holding about 40 and his creatinine is stable at 2.4 - Time Time Spent with patient: 15-24 minutes
[2019-06-11] MEDS: VALSARTAN 40 MG TABLET PO SCH (14:11)
[2019-06-11] MEDS: ACETAMINOPHEN 325 MG TABLET PO PRN (15:12)
--- NOTE | 2019-06-11 18:15 | PDOC PROGRESS REPORT ---
Subjective Progress Note for:: 06/11/19 Subjective:: When I entered the room the patient is sitting up in a chair eating his Jell-O. He states that so far he has not had any nausea or vomiting today. He looks well. He denies any shortness of breath. He states that he walked in the hallway today. He continues to make good amount of urine output about 1225 mL for the past 24 hours. He has no other complaints. Reason For Visit: HEART FAILURE Physical Exam Vital Signs: Temp Pulse Resp BP Pulse Ox 98.8 F 61 18 114/75 100 06/11/19 11:14 06/11/19 11:14 06/11/19 11:14 06/11/19 11:14 06/11/19 11:14 Pulse Oximeter Continuous Start: 05/31/19 13:23 Freq: RTQ4 Status: Complete Protocol: Document 06/07/19 08:39 [facility] (Rec: 06/07/19 08:39 [facility] [id number]) Pulse Oximetry Assessment Oxygen Saturation (92-100) 94 Oxygen Flow Rate (L/min) 2.5 Oxygen Delivery Method Nasal Cannula Equipment Usage Equipment Standby Continuous SpO2 Machine # 1 Intake & Output 06/10/19 06/11/19 06/12/19 06:59 06:59 06:59 Intake Total 1448 1492 700 Output Total 1375 1225 Balance 73 267 700 Weight 118.2 kg 120.4 kg Exam: General appearance: PRESENT: no acute distress, cooperative, well-developed, well-nourished Head exam: PRESENT: atraumatic, normocephalic Eye exam: PRESENT: conjunctiva pale k, PERRLA. ABSENT: scleral icterus Neck exam: ABSENT: JVD Respiratory exam: PRESENT: Diminished breath sounds. Bilateral basal crackles ABSENT: Rhonchi, unlabored, wheezes Cardiovascular exam: PRESENT: Regular rate rhythm -+S1, +S2. ABSENT: diastolic murmur, systolic murmur GI/Abdominal exam: PRESENT: normal bowel sounds, soft. ABSENT: guarding, mass, tenderness Extremities exam: Slight increase in his bilateral lower extremity grade 1 pitting edema Neurological exam: PRESENT: alert, awake, oriented to person, place and time. Difficulty of hearing Skin exam: PRESENT: dry, warm, Cardiovascular exam: PRESENT: +S1, +S2 GI/Abdominal exam: PRESENT: normal bowel sounds, soft. ABSENT: guarding, organomegaly, tenderness Results Laboratory Results: 06/09/19 05:38 06/11/19 05:26 06/11/19 05:26 Sodium 129.8 L Potassium 3.9 Chloride 92 L Carbon Dioxide 32 H Anion Gap 6 BUN 40 H Creatinine 2.40 H Est GFR ( Amer) 34 L Glucose 80 Calcium 8.3 L Magnesium 1.6 05/12/19 05/12/19 05/13/19 12:00 18:31 00:16 Creatine Kinase CK-MB (CK-2) Troponin I 0.039 0.041 0.039 NT-Pro-B Natriuret Pep 8970 H 05/13/19 05/14/19 05/19/19 09:35 04:26 17:45 Creatine Kinase 230 H CK-MB (CK-2) 4.88 H Troponin I 0.047 NT-Pro-B Natriuret Pep 45548 H 06/06/19 06/06/19 06/06/19 07:03 07:03 12:23 Creatine Kinase < 20 L < 20 L CK-MB (CK-2) 1.21 Troponin I 0.016 NT-Pro-B Natriuret Pep 06/06/19 06/06/19 06/06/19 12:23 19:41 19:41 Creatine Kinase < 20 L CK-MB (CK-2) 1.11 1.12 Troponin I 0.015 0.016 NT-Pro-B Natriuret Pep Impressions: Renal Artery Duplex 05/20/19 06:00 IMPRESSION: Nondiagnostic study Chest X-Ray 05/20/19 09:58 IMPRESSION: Pulmonary edema pattern KUB X-Ray 05/23/19 00:00 IMPRESSION: NO RADIOGRAPHIC EVIDENCE FOR ACUTE ABDOMINAL DISEASE. Guidance Fluoroscopy 05/29/19 00:00 IMPRESSION: IMAGE(S) OBTAINED DURING PROCEDURE. Abdomen/Pelvis CT 06/03/19 12:27 IMPRESSION: 1. Basilar lung changes as above. Given history of significant nausea and vomiting, this could be due to aspiration pneumonia. A component of cardiogenic edema is also in the differential. 2. No distended bowel loops to suggest obstruction. There is mild ascites. Assessment & Plan - Diagnosis (1) Acute kidney injury superimposed on chronic kidney disease Is this a current diagnosis for this admission?: Yes Plan: This is most likely secondary to multifactorial acute tubular necrosis. About 2 to 3 weeks ago the patient was uremic, anuric and encephalopathic so he was initiated on acute renal replacement therapy with acute hemodialysis on May 20. His last dialysis was June 05. Baseline creatinine around 1.6-1.8. His kidney function is significantly improved and stable over the weekend . His BUN and creatinine peaked to 131 and 4.07 couple weeks ago. Today he has a BUN of 40, and creatinine of 2. 4 with EGFR of 28. Patient's urine output is also significantly improved . We initially thought of the patient has reached a stage of end-stage renal disease requiring chronic dialysis treatment but currently it appears that the patient just started showing renal recovery. Continue to hold off on dialysis treatment. If the patient's kidney function continues to improve in the next 24 to 48 hours, I do not think he would need renal replacement therapy any longer. At that point we will need to have the PermCath removed prior to him being transferred to a [facility] facility which is the plan. Continue to monitor kidney function for now. (2) Esophagitis Is this a current diagnosis for this admission?: Yes Plan: On sucralfate and pantoprazole. Seems to be improved today. (3) Hypertension Qualifiers: Hypertension type: essential hypertension Qualified Code(s): I10 - Essential (primary) hypertension Is this a current diagnosis for this admission?: Yes Plan: Fairly controlled. (4) Metabolic encephalopathy Is this a current diagnosis for this admission?: Yes Plan: This was secondary to uremia and hypoxia. Resolved currently and back to baseline mental status. (5) Acute combined systolic and diastolic congestive heart failure, NYHA class 4 Is this a current diagnosis for this admission?: Yes Plan: Patient has left ventricular ejection fraction of 25% and grade 1/4 diastolic dysfunction. Patient had been on IV dobutamine couple weeks ago. He is currently on maintenance furosemide. Dr. Lara on board. Dr. Lara is initiating valsartan at 40 mg daily. I think this is appropriate. (6) Acute respiratory failure with hypoxia Is this a current diagnosis for this admission?: Yes Plan: This is secondary to congestive heart failure with increasing pulmonary edema. Currently resolved. (7) Pulmonary hypertension Is this a current diagnosis for this admission?: Yes Plan: Very severe. (8) Hyperphosphatemia Is this a current diagnosis for this admission?: Yes Plan: Resolved. (9) Hypermagnesemia Is this a current diagnosis for this admission?: Yes Plan: Due to ERNESTINE. Resolved and currently relatively low. Give magnesium supplement as necessary. (10) Elevated liver enzymes Is this a current diagnosis for this admission?: Yes Plan: Could be due to hepatic congestion due to severe cardiomyopathy. (11) Anemia Is this a current diagnosis for this admission?: Yes Plan: Worsened by acute illness. Patient was transfused over the weekend due to esoph agitis. (12) Cellulitis, leg Qualifiers: Laterality: unspecified laterality Qualified Code(s): L03.119 - Cellulitis of unspecified part of limb Is this a current diagnosis for this admission?: Yes Plan: Completed IV antibiotics per hospitalist service. (13) Foot ulcer, right Qualifiers: Non-pressure ulcer stage: unspecified non-pressure ulcer stage Qualified Code(s): L97.519 - Non-pressure chronic ulcer of other part of right foot with unspecified severity Is this a current diagnosis for this admission?: Yes (14) COPD (chronic obstructive pulmonary disease) Qualifiers: COPD type: COPD with acute exacerbation Qualified Code(s): J44.1 - Chronic obstructive pulmonary disease with (acute) exacerbation Is this a current diagnosis for this admission?: Yes (15) Peripheral vascular disease Is this a current diagnosis for this admission?: Yes Plan: Arterial duplex showed moderately hemodynamically significant lesions in bilateral lower extremities. (16) Stasis dermatitis of both legs Is this a current diagnosis for this admission?: Yes (17) Scabies Is this a current diagnosis for this admission?: Yes Plan: Treated with permethrin by hospitalist. (18) Hearing loss Is this a current diagnosis for this admission?: Yes - Time Time with patient: 15-25 minutes
[2019-06-11] MEDS: QUETIAPINE FUMARATE 100 MG TABLET PO SCH (22:20)
--- NOTE | 2019-06-11 22:33 | Progress Note ---
Provider Note Provider Note: CARDIOLOGY PROGRESS NOTE by Dr. Radha Salmon on 06/11/2019. OBJECTIVE: Today the patient has no nausea vomiting. He has been eating well. He denies chest pain or discomfort there is no shortness of breath there is no PND orthopnea. There is no arrhythmia seen on the monitor. There is no TIA CVA symptoms. His right leg ulcer is almost healed. PHYSICAL EXAMINATION: The patient appears to be chronically ill and appears to be malnourished. In no acute distress. Selected Entries 06/11/19 11:14 Temperature 98.8 F Temperature Oral Source Pulse Rate 61 Respiratory 18 Rate Blood Pressure 114/75 Blood Pressure 88 Mean BP Location Left Arm BP Position Supine O2 Sat by Pulse 100 Oximetry Oxygen Delivery Room Air Method HEAD: Head is atraumatic normocephalic. Eyes: Pupils are equal round regular reactive light accommodation extraocular movements are normal there is no congenital pallor there is no scleral icterus. Ears: External auditory canals are clear, there are no lesions of the pinna. Nose: No deviated nasal septum and no inflammation of the nasal mucous membrane. Mouth: Mucous membranes of mouth are moist tongue is moist there is no ulcers there is no bleeding from the gums. Throat: There is no redness of the oropharynx there is no exudates. Skin: There is no petechia or ecchymosis there is no skin lesions or skin rashes. Neck: Neck is supple there is JVD present. Carotids equal there is no bruit there is no lymphadenopathy there is no neck stiffness. There is no goiter trachea central lungs: Lungs show diminished air entry and prolonged expiration. Scattered rhonchi and wheezing present. There is no no bibasilar rales of CHF. Few dry crackles in the right base. There is no chest wall tenderness. HEART: S1-S2 is heard there is no S3 gallop there is no S4 gallop S1 is of normal intensity. There is no rub. The systolic murmur of MR and TR. There is no prosthetic valve clicks heard. Abdomen: Abdomen is soft, mildly distended, no definite ascites. There is no hepatosplenomegaly. Bowel sounds well heard there is no tender areas of masses. There is no rebound guarding or rigidity. Extremities: Femorals are slightly diminished, there is no bruits. Leg pulses are diminished. There is trace 2- edema, with venous stasis dermatitis. There is no DVT or cellulitis there is no cyanosis or clubbing there is no DVT or cellulitis. There is no calf tenderness. CAVING GUIDE: The patient is awake alert oriented 3 with no focal deficits. But in spite of this he has slow mentation. Psychiatric: The patient judgment and insight are intact and his affect. The patient's 24-hour intake is 1492 mL, and the 24-hour output is 1225 mL Labs- All tests 24 hr 06/11/19 05:26 Sodium 129.8 L Potassium 3.9 Chloride 92 L Carbon Dioxide 32 H Anion Gap 6 BUN 40 H Creatinine 2.40 H Est GFR ( Amer) 34 L Est GFR (MDRD) Non-Af 28 L Glucose 80 Calcium 8.3 L Magnesium 1.6 Chest X-Ray 05/12/19 11:53 IMPRESSION: No acute cardiopulmonary process. Chest X-Ray 05/14/19 00:00 IMPRESSION: No acute cardiopulmonary process. Chest X-Ray 05/15/19 15:34 IMPRESSION: Right jugular central line tip SVC. No Pneumothorax Renal Artery Duplex 05/20/19 06:00 IMPRESSION: Nondiagnostic study Chest X-Ray 05/20/19 09:58 IMPRESSION: Pulmonary edema pattern KUB X-Ray 05/23/19 00:00 IMPRESSION: NO RADIOGRAPHIC EVIDENCE FOR ACUTE ABDOMINAL DISEASE. Guidance Fluoroscopy 05/29/19 00:00 IMPRESSION: IMAGE(S) OBTAINED DURING PROCEDURE. Abdomen/Pelvis CT 06/03/19 12:27 IMPRESSION: 1. Basilar lung changes as above. Given history of significant nausea and vomiting, this could be due to aspiration pneumonia. A component of cardiogenic edema is also in the differential. 2. No distended bowel loops to suggest obstruction. There is mild ascites. iMPRESSION/RECOMMENDATION: 1. Acute respiratory failure secondary to combination of acute on chronic systolic heart failure, acute renal failure causing volume overload, acute exacerbation of COPD, and severe pulmonary hypertension, this is immensely improved and the patient is on nasal oxygen and not on BiPAP anymore. 2. Acute on chronic systolic heart failure. This is resolved with the patient being on dialysis. His blood pressure has come up. Hence will discuss with nephrology to see if we can start him on a JOSE D inhibitor. Continue Toprol-XL. His renal artery Dopplers for renal artery stenosis remains negative albeit poor quality study. At present the patient is compensated from his heart failure. 3. Acute exacerbation COPD: This is resolved. 4. Hypertension: At present blood pressure reasonable. 5. Severe pulmonary hypertension: He is on nitrates and hence cannot use sildenafil. Also his blood pressure is low and hence cannot place him on a calcium channel laurie especially in view of associated severe LV dysfunction, and cannot increase the patient's hydralazine due to low blood pressure. As discussed with the emergency department coordinator will start the patient on small dose of ARB. 6. Acute on chronic renal failure. Avoid nephrotoxic drugs. The patient has been started on dialysis, in spite of this patient's renal function is deteriorating. The patient is now dialysis dependent and has reached end-stage renal disease. 7. Bipolar disorder 8. Tobacco abuse disorder. 9 coronary artery disease: History of coronary bypass graft surgery: No angina and troponin so far is not elevated. 10. Peripheral vascular disease: This will be addressed later on. 11. History of valvular repair: Details not available. Try to contact [facility] but they say they have not heard of the patient, and have no records on him. 12. Severe hearing loss: 13. Scabies. This is resolved. 14. Hematemesis and nausea. This is resolved. No recurrence. Medications reviewed. Medical regimen and management plan discussed with attending physician. Discussed with nephrology. Medical decision making is of high complexity, in view of the need to start new medication of his Diovan. 40 minutes spent as patient more than 50% time spent in direct patient care. Patient awaiting placement in a rehab facility. Will follow.
[2019-06-12] MEDS: ONDANSETRON HCL INJ/PF 4 MG/2 ML SDV IV SCH ×4 (02:38→23:00)
[2019-06-12 05:24] LABS: ANION GAP 5 (5-19); BLOOD UREA NITROGEN 45 mg/dL (7-20); CALCIUM 8.7 mg/dL (8.4-10.2); CARBON DIOXIDE 36 mmol/L (22-30); CHLORIDE 91 mmol/L (98-107); GLUCOSE 86 mg/dL (75-110); POTASSIUM 3.8 mmol/L (3.6-5.0)
[2019-06-12] MEDS: HEPARIN SOD (PORCINE) 5,000 UNIT/ML 1 ML VIAL SUBCUT SCH ×3 (05:27→23:11)
[2019-06-12] MEDS: SUCRALFATE 1 GM TABLET PO SCH ×4 (08:13→23:11)
--- NOTE | 2019-06-12 09:47 | PDOC PROGRESS REPORT ---
Subjective Progress Note for:: 06/12/19 Subjective:: Patient has been stable so far. He has not had nausea and vomiting and is able to eat. His urine output is excellent at 2625 mL. His blood pressure is controlled. His kidney function is stable. Reason For Visit: HEART FAILURE Physical Exam Vital Signs: Temp Pulse Resp BP Pulse Ox 98.5 F 70 14 130/57 H 100 06/12/19 03:20 06/12/19 07:00 06/12/19 03:20 06/12/19 03:20 06/12/19 03:20 Pulse Oximeter Continuous Start: 05/31/19 13:23 Freq: RTQ4 Status: Complete Protocol: Document 06/07/19 08:39 [facility] (Rec: 06/07/19 08:39 [facility] [id number]) Pulse Oximetry Assessment Oxygen Saturation (92-100) 94 Oxygen Flow Rate (L/min) 2.5 Oxygen Delivery Method Nasal Cannula Equipment Usage Equipment Standby Continuous SpO2 Machine # 1 Intake & Output 06/11/19 06/12/19 06/13/19 06:59 06:59 06:59 Intake Total 1492 700 Output Total 1225 2625 Balance 267 -1925 Weight 120.4 kg 105.6 kg Exam: General appearance: PRESENT: no acute distress, cooperative, well-developed, well-nourished Head exam: PRESENT: atraumatic, normocephalic Eye exam: PRESENT: conjunctiva pale, PERRLA. ABSENT: scleral icterus Neck exam: ABSENT: JVD Respiratory exam: PRESENT: Diminished breath sounds. Mild basal crackles ABSE NT: Rhonchi, unlabored, wheezes Cardiovascular exam: PRESENT: Regular rate rhythm -+S1, +S2. ABSENT: diastolic murmur, systolic murmur GI/Abdominal exam: PRESENT: normal bowel sounds, soft. ABSENT: guarding, mass, tenderness Extremities exam: Grade 1 bilateral lower extremity pitting edema Neurological exam: PRESENT: alert, awake, oriented to person, place and time. Hard of hearing Skin exam: PRESENT: dry, warm, Cardiovascular exam: PRESENT: +S1, +S2 GI/Abdominal exam: PRESENT: normal bowel sounds, soft. ABSENT: guarding, organomegaly, tenderness Results Laboratory Results: 06/09/19 05:38 06/12/19 04:56 06/12/19 04:56 Sodium 131.6 L Potassium 3.8 Chloride 91 L Carbon Dioxide 36 H Anion Gap 5 BUN 45 H Creatinine 2.27 H Est GFR ( Amer) 36 L Glucose 86 Calcium 8.7 05/12/19 05/12/19 05/13/19 12:00 18:31 00:16 Creatine Kinase CK-MB (CK-2) Troponin I 0.039 0.041 0.039 NT-Pro-B Natriuret Pep 8970 H 05/13/19 05/14/19 05/19/19 09:35 04:26 17:45 Creatine Kinase 230 H CK-MB (CK-2) 4.88 H Troponin I 0.047 NT-Pro-B Natriuret Pep 68159 H 06/06/19 06/06/19 06/06/19 07:03 07:03 12:23 Creatine Kinase < 20 L < 20 L CK-MB (CK-2) 1.21 Troponin I 0.016 NT-Pro-B Natriuret Pep 06/06/19 06/06/19 06/06/19 12:23 19:41 19:41 Creatine Kinase < 20 L CK-MB (CK-2) 1.11 1.12 Troponin I 0.015 0.016 NT-Pro-B Natriuret Pep Impressions: Renal Artery Duplex 05/20/19 06:00 IMPRESSION: Nondiagnostic study Chest X-Ray 05/20/19 09:58 IMPRESSION: Pulmonary edema pattern KUB X-Ray 05/23/19 00:00 IMPRESSION: NO RADIOGRAPHIC EVIDENCE FOR ACUTE ABDOMINAL DISEASE. Guidance Fluoroscopy 05/29/19 00:00 IMPRESSION: IMAGE(S) OBTAINED DURING PROCEDURE. Abdomen/Pelvis CT 06/03/19 12:27 IMPRESSION: 1. Basilar lung changes as above. Given history of significant nausea and vomiting, this could be due to aspiration pneumonia. A component of cardiogenic edema is also in the differential. 2. No distended bowel loops to suggest obstruction. There is mild ascites. Assessment & Plan - Diagnosis (1) Acute kidney injury superimposed on chronic kidney disease Is this a current diagnosis for this admission?: Yes Plan: This is most likely secondary to multifactorial acute tubular necrosis. About 2 to 3 weeks ago the patient was uremic, anuric and encephalopathic so he was initiated on acute renal replacement therapy with acute hemodialysis on May 20. His last dialysis was June 05. Baseline creatinine around 1.6-1.8. His kidney function is significantly improved and stable over the weekend . His BUN and creatinine peaked to 131 and 4.07 couple weeks ago. Today he has a BUN of 45, and creatinine of 2. 27 with EGFR of 30. Patient's urine output is also significantly improved . We initially thought of the patient has reached a stage of end-stage renal disease requiring chronic dialysis treatment but currently it appears that the patient has renal recovery and does not require any more renal replacement therapy at this point. We will have his PermCath removed today by our surgeon. From nephrology standpoint I think the patient can be safely discharged to a group home facility after removal of the PermCath. If discharged or transferred to group home facility, recommend to check the patient's matrix basic metabolic panel next week and be followed by the group home facility provider. Patient may also follow-up in our office for possible underlying chronic kidney disease once the COVID 19 pandemic restrictions has cleared. (2) Esophagitis Is this a current diagnosis for this admission?: Yes Plan: On sucralfate and pantoprazole. Seems to be improving for the last 24 hours. (3) Hypertension Qualifiers: Hypertension type: essential hypertension Qualified Code(s): I10 - Essential (primary) hypertension Is this a current diagnosis for this admission?: Yes Plan: Fairly controlled. (4) Metabolic encephalopathy Is this a current diagnosis for this admission?: Yes Plan: This was secondary to uremia and hypoxia. Resolved currently and back to baseline mental status. (5) Acute combined systolic and diastolic congestive heart failure, NYHA class 4 Is this a current diagnosis for this admission?: Yes Plan: Patient has left ventricular ejection fraction of 25% and grade 1/4 diastolic dysfunction. Patient had been on IV dobutamine couple weeks ago. He is currently on maintenance furosemide. Dr. Lara on board. Dr. Lara is initiating valsartan at 40 mg daily. I think this is appropriate. (6) Hyponatremia Is this a current diagnosis for this admission?: Yes Plan: Likely due to some fluid retention. I increase his Lasix yesterday to 3 times a day. Sodium level has improved today so we will continue the same dose for now. (7) Acute respiratory failure with hypoxia Is this a current diagnosis for this admission?: Yes Plan: This is secondary to congestive heart failure with increasing pulmonary edema. Currently resolved. (8) Pulmonary hypertension Is this a current diagnosis for this admission?: Yes Plan: Very severe. (9) Elevated liver enzymes Is this a current diagnosis for this admission?: Yes Plan: Could be due to hepatic congestion due to severe cardiomyopathy. (10) Anemia Is this a current diagnosis for this admission?: Yes Plan: Worsened by acute illness. Patient was transfused over the weekend due to esophagitis. (11) Cellulitis, leg Qualifiers: Laterality: unspecified laterality Qualified Code(s): L03.119 - Cellulitis of unspecified part of limb Is this a current diagnosis for this admission?: Yes Plan: Completed IV antibiotics per hospitalist service. (12) Foot ulcer, right Qualifiers: Non-pressure ulcer stage: unspecified non-pressure ulcer stage Qualified Code(s): L97.519 - Non-pressure chronic ulcer of other part of right foot with unspecified severity Is this a current diagnosis for this admission?: Yes (13) COPD (chronic obstructive pulmonary disease) Qualifiers: COPD type: COPD with acute exacerbation Qualified Code(s): J44.1 - Chronic obstructive pulmonary disease with (acute) exacerbation Is this a current diagnosis for this admission?: Yes (14) Peripheral vascular disease Is this a current diagnosis for this admission?: Yes Plan: Arterial duplex showed moderately hemodynamically significant lesions in bilateral lower extremities. (15) Stasis dermatitis of both legs Is this a current diagnosis for this admission?: Yes (16) Scabies Is this a current diagnosis for this admission?: Yes Plan: Treated with permethrin by hospitalist. (17) Hearing loss Is this a current diagnosis for this admission?: Yes - Time Time with patient: 15-25 minutes
[2019-06-12] MEDS: PANTOPRAZOLE SODIUM 40 MG VIAL IV SCH ×2 (10:47→23:11)
[2019-06-12] MEDS: VALSARTAN 40 MG TABLET PO SCH (10:47)
[2019-06-12] MEDS: GABAPENTIN 300 MG CAPSULE PO SCH (10:47)
[2019-06-12] MEDS: FUROSEMIDE 40 MG TABLET PO SCH ×3 (10:47→18:52)
[2019-06-12] MEDS: METOPROLOL SUCCINATE 25 MG TAB.SR.24H PO SCH ×2 (10:47→23:12)
[2019-06-12] MEDS: NITROGLYCERIN 15 MG (0.6 MG/1 HR) PATCH.TD24 TD SCH (10:48)
[2019-06-12] MEDS: FLUTICASONE/UMECLIDIN/VILANTER 100-62.5-25 MCG/DOSE IH SCH (10:48)
[2019-06-12] MEDS: MINERAL OIL/PETROLATUM,WHITE CREAM 114 GM TP SCH (10:48)
--- NOTE | 2019-06-12 15:56 | PDOC TRANSFER SUMMARY ---
Impression - Admit/DC Date/PCP Admission Date/Primary Care Provider: 05/12/19 14:02 LISSETTE CASTRO MD Discharge Date: 06/12/19 - Discharge Diagnosis (1) Acute respiratory failure with hypoxia Is this a current diagnosis for this admission?: Yes (2) Bipolar disorder Is this a current diagnosis for this admission?: No (3) Foot ulcer, right Is this a current diagnosis for this admission?: Yes (4) Lactic acidosis Is this a current diagnosis for this admission?: Yes (5) Abdominal pain Is this a current diagnosis for this admission?: Yes (6) Acute combined systolic and diastolic congestive heart failure, NYHA class 4 Is this a current diagnosis for this admission?: Yes (7) Acute renal failure superimposed on stage 3 chronic kidney disease Is this a current diagnosis for this admission?: Yes (8) COPD (chronic obstructive pulmonary disease) Is this a current diagnosis for this admission?: Yes (9) Elevated troponin Is this a current diagnosis for this admission?: Yes (10) Hypertension Is this a current diagnosis for this admission?: Yes (11) Venous stasis Is this a current diagnosis for this admission?: Yes (12) Scabies Is this a current diagnosis for this admission?: Yes - Assessment Summary: (1) Acute respiratory failure with hypoxia Is this a current diagnosis for this admission?: Yes (2) Bipolar disorder Is this a current diagnosis for this admission?: Yes (3) Foot ulcer, right Qualifiers: Non-pressure ulcer stage: unspecified non-pressure ulcer stage Qualified Code(s): L97.519 - Non-pressure chronic ulcer of other part of right foot with unspecified severity Is this a current diagnosis for this admission?: Yes (4) Lactic acidosis Is this a current diagnosis for this admission?: Yes (5) Abdominal pain Qualifiers: Abdominal location: epigastric Qualified Code(s): R10.13 - Epigastric pain Is this a current diagnosis for this admission?: Yes (6) Acute combined systolic and diastolic congestive heart failure, NYHA class 4 Is this a current diagnosis for this admission?: Yes (7) Acute renal failure superimposed on stage 3 chronic kidney disease Is this a current diagnosis for this admission?: Yes (8) COPD (chronic obstructive pulmonary disease) Qualifiers: COPD type: COPD with acute exacerbation Qualified Code(s): J44.1 - Chronic obstructive pulmonary disease with (acute) exacerbation Is this a current diagnosis for this admission?: Yes (9) Elevated troponin Is this a current diagnosis for this admission?: Yes (10) Hypertension Qualifiers: Hypertension type: essential hypertension Qualified Code(s): I10 - Essential (primary) hypertension Is this a current diagnosis for this admission?: Yes (11) Venous stasis Is this a current diagnosis for this admission?: Yes (12) Scabies Is this a current diagnosis for this admission?: Yes Palliative care consulted given patient's multiple comorbidities and overall poor functional state. 05/30/2019 Patient completed his dialysis today unfortunately he was not able to be transferred to long term facility because he was rejected at [facility] Patient has also been rejected at [facility] Patient will need dialysis once discharged from the hospital Today's BUN is 65 creatinine 6.34 Calcium 8.6 Cultures have showed no growth in 5 days Wound culture from right foot grew out staph aureus but this is been 18 days ago Patient is currently on no antibiotics Patient had a right permacath placed on 05/29/2019 05/31/2019 Sleeping but arouses easily Hemodynamically stable temperature 97.8 pulse 62, blood pressure 126/55, Patient's oxygen saturations are in the mid 90s but requires 5 L of nasal anna avery. FiO2 of 40% Try to wean patient down to 3 L. If we cannot do this successfully I will repeat a blood gas Patient did receive hemodialysis yesterday Patient waiting care home placement 06/01/2019 Patient is very much awake and alert and conversant. Oriented. Patient tells me this morning that he wants to go to a rehab unit when he is discharge. He shows me a brochure from [facility] Patient's vital signs are extremely stable. Will however need oxygen at 2-3 L at the time of discharge He will need no antibiotics at time of discharge. Patient will need to continue dialysis per nephrology's suggestions Patient's white count is down to 11,000, recent arterial blood gas is basically normal, last set of blood cultures were negative x5 days Patient is stable for discharge to facility 06/02/2019 Patient will possibly get a bed offer at [facility] Patient is undergoing dialysis on Sunday No indication for antibiotics Neurologically intact Labs are stable as one would expect for a dialysis patient Patient is able to maintain oxygen saturations in the upper 90s on 2 L nasal cannula. I suspect he could even gradually be weaned lower time permitting 06/03/2019 Complains of nausea and vomiting. CT scan of the abdomen pelvis negative for any bowel obstruction. Still awaiting placement. Continue current medications. 06/04/2019 Persistent vomiting. Today he threw up dark liquid emesis. Will start IV Protonix 40 mg twice daily. Consult surgery for possible EGD. Monitor H&H and transfuse if needed. 06/05/2019 Nausea and vomiting appears to be improving. He said he tolerated some liquids this morning for breakfast. Hemoglobin has been stable. Pending surgery evaluation for possible EGD. 06/06/2019 Hemoptysis and acute blood loss anemia. Blood transfusion ordered by Dr. Barker. EGD planned by Dr. Issa. Dr. Vidal saw and examined the patient and declined admission to the ICU. Patient is high risk for decompensation. I prefer for him to be transferred to the ICU but Dr. Vidal declined. 06/07/2019 Had an EGD yesterday positive for GERD and esophagitis. Received units of blood yesterday. Had hemodialysis yesterday. Had some breakfast today. Despite poor appetite he did not vomit. 06/08/2019 Patient still symptomatic. Poor oral intake. Persistent nausea and vomiting. Will add Carafate. 06/10/2019 Patient continues to have persistent vomiting with meals. Patient is on Carafate before meals and at bedtime as well as Protonix 40 mg IV every 12. I wanted to add Reglan but with his SSRIs this was contraindicated. Instead I am going to change his diet to a full liquid, and make his Zofran every 6 hours scheduled instead of as needed. Patient did have an upper endoscopy on 05 June that showed esophagitis Temperature 98.8 pulse 56 blood pressure 134/55, O2 sat 99% on 2-1/2 L Renal function continues to improve BUN is at 37 and creatinine is at 2.19 which is a tremendous improvement Dialysis is being decided on a day by day basis by nephrology. June 11, 2019 Vital signs are extremely stable temperature 98 pulse 56 blood pressure 117/68 oxygen 99% on 2 L nasal cannula She is biggest problem now is his GERD and esophagitis. Currently on Carafate as well as the Protonix Patient vomited the last yesterday evening no vomit this morning with breakfast. Patient currently on a full liquid diet if he does well today at lunch and I will advance his diet tonight. He is also on a scheduled Zofran. I wanted to use Reglan but this is contraindicated with his psych medicines. Once patient's GERD and esophagitis is under control he would be medically stable for discharge. This may be as soon as tomorrow We will try patient on room air and see what his oxygen saturation is. Patient's BUN seems to be holding about 40 and his creatinine is stable at 2.4 06/11/19 Patient was admitted to the hospital 1 month ago today for congestive heart failure, shortness of breath, hypoxia, hypertension. Since his admission however he has had multiple medical complications and problems, severe and significant was renal disease with hemodialysis required. Patient had had his shortness of breath and abdominal distention worsening over the last week prior to admission. Patient was initially treated with Lasix 20 mg IV every 6 hours Entresto every 12 hours Solu-Medrol 40 mg every 8 hours and Ancef every 6 hours. He was also maintained on his Xarelto 2.5 mg every 12 hours. Patient was seen in consultation by multiple physicians including Dr. Lara for cardiology, multiple general surgeons for procedures, triple lumen catheters, pulmonology consults, and most significantly nephrology consult for worsening renal disease. First nephrology consult was on 19 May for probable acute tubular necrosis with uremic symptoms, probably secondary to poor renal perfusion. On that day it was decided that patient would benefit from dialysis treatment. Surgery was consulted and a temporary dialysis catheter was placed. Patient started dialysis treatment on Sunday and Sunday. On 06/03/2019 the patient started complaining of nausea and vomiting with a normal CT scan. Because of persistent nausea and vomiting patient had a EGD performed with a distal esophageal polyp biopsy on 06/05. This only revealed esophagitis and the single distal esophageal polyp no evidence of ulcers or erosion. Patient did require a blood transfusion hours as a result of his hematemesis, and at that time was placed on Carafate and Protonix. Patient's last dialysis was June 05 with a baseline creatinine around 1.6-1.8 and a BUN of 32 At its peak his BUN was 131 and his creatinine was 4.07. It appears as though patient's renal function has improved to the point where he no longer needs dialysis. Patient has had no vomiting in the last 24 hours and is currently on Carafate Protonix and scheduled Zofran. Patient is tolerating a regular diet. Patient does have a left ventricular ejection fracture of 25% and a grade 1/4 diastolic dysfunction Today's last note by nephrology shows that his urine output was excellent at 2625 mL's and his blood pressure is well controlled and his kidney function was stable. Nephrology felt that his acute kidney injury was secondary to multifactorial acute tubular necrosis. Neurology felt that the patient could be seen as an outpatient by their office if needed. Ben felt that the permacath could be removed prior to going to long term. Cardiology felt that the patient could use nasal oxygen on a as needed basis, continue the Toprol XL. Possibly add an JOSE D inhibitor if okay with nephrology. Continue nitrates. Obtain the patient on his present dose of hydralazine, possible small dose of an ARB. His vital signs temperature 98.1 heart rate of 70 blood pressure 121/79 O2 sat 97% on room air patient is currently in stable chronic atrial fib According to our most recent notes patient is a "full code". Had this done - Additional Information Resuscitation Status: Full Code Discharge Diet: Cardiac Discharge Activity: Activity As Tolerated, Balance Activity w/Rest, Weigh Daily Referrals: SB NELSON DO [NO LOCAL MD] - 06/24/19 11:00 am Prescriptions: Ondansetron [Zofran Odt 4 mg Tablet] 4 mg PO Q6HP PRN 7 Days #30 tab.rapdis PRN Reason: Home Medications: Albuterol Sulfate [Ventolin Hfa 8 gm Mdi] 2 puff IH Q6HP PRN 04/30/19 Thiamine HCl [Thiamine 100 mg Tablet] 100 mg PO DAILY 04/30/19 Multivitamin/Iron/Folic Acid [Centrum Adults Tablet] 1 each PO DAILY 05/12/19 Vitamin B Complex/Folic Acid [B-Complex Tablet] 1 tab PO DAILY 05/12/19 Acetaminophen [Tylenol 325 mg Tablet] 650 mg PO Q6HP PRN tablet 06/12/19 Baclofen [Baclofen 10 mg Tablet] 10 mg PO TIDP PRN tablet 06/12/19 Fluticasone/Umeclidin/Vilanter [Trelegy 100-62.5-25 Mcg Ellipta 14 Dose/Dpi] 1 inh IH DAILY inhaler 06/12/19 Furosemide [Lasix 40 mg Tablet] 40 mg PO TID tablet 06/12/19 Gabapentin [Neurontin 300 mg Capsule] 300 mg PO DAILY capsule 06/12/19 Metoprolol Succinate [Toprol Xl 25 mg Tab.sr] 25 mg PO Q12 tab.sr.24h 06/12/19 Mineral Oil/Petrolatum,White [Eucerin Cream 114 gm] 1 applic TP DAILY jar 06/12/19 Nitroglycerin [Nitro-Dur 15 mg (0.6 mg/1 Hr) Transderm Patch] 1 each TD DAILY patch.td24 06/12/19 Ondansetron [Zofran Odt 4 mg Tablet] 4 mg PO Q6HP PRN 7 Days #30 tab.rapdis 06/12/19 Pantoprazole Sodium [Protonix [address] Tablet] 20 mg PO QAM 30 Days #30 tab let.dr 06/12/19 Quetiapine Fumarate [Seroquel 100 mg Tablet] 150 mg PO QHS tablet 06/12/19 Sucralfate [Carafate 1 gm Tablet] 1 gm PO ACHS tablet 06/12/19 Valsartan [Diovan 40 mg Tablet] 40 mg PO DAILY tablet 06/12/19 History of Present Illiness History of Present Illness: JUJU ANDRADE is a 58 year old male Physical Exam Vital Signs: Temp Pulse Resp BP Pulse Ox 98.1 F 29 L 18 121/79 97 06/12/19 07:29 06/12/19 07:29 06/12/19 07:29 06/12/19 07:29 06/12/19 07:29 Pulse Oximeter Continuous Start: 05/31/19 13:23 Freq: RTQ4 Status: Complete Protocol: Document 06/07/19 08:39 [facility] (Rec: 06/07/19 08:39 [facility] [id number]) Pulse Oximetry Assessment Oxygen Saturation (92-100) 94 Oxygen Flow Rate (L/min) 2.5 Oxygen Delivery Method Nasal Cannula Equipment Usage Equipment Standby Continuous SpO2 Machine # 1 Intake & Output 06/11/19 06/12/19 06/13/19 06:59 06:59 06:59 Intake Total 1492 700 Output Total 0012 7275 Balance 267 -1925 Weight 120.4 kg 105.6 kg Results Laboratory Results: WBC 6.5 10^3/uL (4.0-10.5) 06/09/19 05:38 RBC 3.73 10^6/uL (4.35-5.55) L 06/09/19 05:38 Hgb 10.0 g/dL (13.5-17.0) L 06/09/19 05:38 Hct 30.5 % (37.9-51.0) L 06/09/19 05:38 MCV 82 fl (80-97) 06/09/19 05:38 MCH 26.8 pg (27.0-33.4) L 06/09/19 05:38 MCHC 32.7 g/dL (32.0-36.0) 06/09/19 05:38 RDW 25.6 % (11.5-14.0) H 06/09/19 05:38 Plt Count 290 10^3/uL (150-450) 06/09/19 05:38 Lymph % (Auto) 7.1 % (13-45) L 05/30/19 04:12 [place] % (Auto) 6.2 % (3-13) 05/30/19 04:12 Eos % (Auto) 2.5 % (0-6) 05/30/19 04:12 Baso % (Auto) 0.6 % (0-2) 05/30/19 04:12 Reticulocyte # 0.061 10^6/uL (0.028-0.122) 05/28/19 05:00 Absolute Neuts (auto) 9.3 10^3/uL (1.7-8.2) H 05/30/19 04:12 Absolute Lymphs (auto) 0.8 10^3/uL (0.5-4.7) 05/30/19 04:12 Absolute Monos (auto) 0.7 10^3/uL (0.1-1.4) 05/30/19 04:12 Absolute Eos (auto) 0.3 10^3/uL (0.0-0.6) 05/30/19 04:12 Absolute Basos (auto) 0.1 10^3/uL (0.0-0.2) 05/30/19 04:12 Total Counted 100 05/27/19 04:29 Band Neutrophils % 1 % (3-5) L 05/23/19 04:41 Seg Neutrophils % 83.6 % (42-78) H 05/30/19 04:12 Seg Neuts % (Manual) 88 % (42-78) H 05/27/19 04:29 Lymphocytes % (Manual) 6 % (13-45) L 05/27/19 04:29 Monocytes % (Manual) 6 % (3-13) 05/27/19 04:29 Eosinophils % (Manual) 0 % (0-6) 05/27/19 04:29 Basophils % (Manual) 0 % (0-2) 05/27/19 04:29 Abs Neuts (Manual) 9.9 10^3/uL (1.7-8.2) H 05/27/19 04:29 Abs Lymphs (Manual) 0.7 10^3/uL (0.5-4.7) 05/27/19 04:29 Abs Monocytes (Manual) 0.7 10^3/uL (0.1-1.4) 05/27/19 04:29 Absolute Eos (Manual) 0.0 10^3/uL (0.0-0.6) 05/27/19 04:29 Abs Basophils (Manual) 0.0 10^3/uL (0.0-0.2) 05/27/19 04:29 Nucleated RBCs 1 /100 WBC (0) 05/27/19 04:29 Toxic Granulation 1+ 05/27/19 04:29 Platelet Estimate Cancelled 06/02/19 05:36 Platelet Comment ADEQUATE 05/27/19 04:29 Polychromasia SLIGHT 05/16/19 10:47 Hypochromasia SLIGHT 05/24/19 06:05 Microcytosis SLIGHT 05/24/19 06:05 Poikilocytosis 3+ 05/27/19 04:29 Anisocytosis 3+ 05/27/19 04:29 Dell Cells SLIGHT 05/14/19 04:26 Target Cells SLIGHT 05/27/19 04:29 Tear Drop Cells 1+ 05/27/19 04:29 Ovalocytes 1+ 05/27/19 04:29 Schistocytes 1+ 05/27/19 04:29 ESR 10 mm/hr (0-20) 05/16/19 10:47 Retic Count (auto) 1.78 % (0.66-2.85) 05/28/19 05:00 PT 15.5 SEC (11.4-15.4) H 06/06/19 06:53 INR 1.22 06/06/19 06:53 Carbonic Acid 1.40 mmol/L (1.05-1.35) H 06/06/19 06:53 HCO3/H2CO3 Ratio 20:1 06/06/19 06:53 ABG pH 7.42 (7.35-7.45) 06/06/19 06:53 ABG pCO2 46.5 mmHg (35-45) H 06/06/19 06:53 ABG pO2 91.4 mmHg (80-100) 06/06/19 06:53 ABG HCO3 29.3 mmol/L (20-24) H 06/06/19 06:53 ABG Total CO2 30.8 mmol/L (23-27) H 06/06/19 06:53 ABG O2 Saturation 97.0 % (94-98) 06/06/19 06:53 ABG Base Excess 4.2 mmol/L 06/06/19 06:53 VBG pH 7.33 (7.30-7.42) 05/12/19 12:00 VBG pCO2 43.4 mmHg (35-63) 05/12/19 12:00 VBG HCO3 22.2 mmol/L (20-32) 05/12/19 12:00 VBG Base Excess -3.8 mmol/L 05/12/19 12:00 FiO2 45% 06/06/19 06:53 Sodium 131.6 mmol/L (137-145) L 06/12/19 04:56 Potassium 3.8 mmol/L (3.6-5.0) 06/12/19 04:56 Chloride 91 mmol/L (98-107) L 06/12/19 04:56 Carbon Dioxide 36 mmol/L (22-30) H 06/12/19 04:56 Anion Gap 5 (5-19) 06/12/19 04:56 BUN 45 mg/dL (7-20) H 06/12/19 04:56 Creatinine 2.27 mg/dL (0.52-1.25) H 06/12/19 04:56 Est GFR ( Amer) 36 (>60) L 06/12/19 04:56 Est GFR (MDRD) Non-Af 30 (>60) L 06/12/19 04:56 Glucose 86 mg/dL (75-110) 06/12/19 04:56 POC Glucose 137 mg/dL (70-110) H 05/24/19 06:01 Hemoglobin A1c % 6.0 % (4.7-6.0) 05/13/19 05:26 Lactic Acid 1.2 mmol/L (0.7-2.1) 05/23/19 04:41 Calcium 8.7 mg/dL (8.4-10.2) 06/12/19 04:56 Phosphorus 3.6 mg/dL (2.5-4.5) 06/10/19 05:42 Magnesium 1.6 mg/dL (1.6-2.3) 06/11/19 05:26 Iron 39.2 ug/dL (49-181) L 05/28/19 05:33 TIBC 245 ug/dL (250-450) L 05/28/19 05:33 % Saturation 16 % 05/28/19 05:33 Ferritin 124.00 ng/mL (17.9-464.0) 05/28/19 05:33 Total Bilirubin 1.8 mg/dL (0.2-1.3) H 06/06/19 12:23 Direct Bilirubin 0.8 mg/dL (0.0-0.4) H 06/06/19 12:23 Neonat Total Bilirubin Not Reportable 06/06/19 12:23 Neonat Direct Bilirubin Not Reportable 06/06/19 12:23 Neonat Indirect Bili Not Reportable 06/06/19 12:23 AST 15 U/L (17-59) L 06/06/19 12:23 ALT 12 U/L (<50) 06/06/19 12:23 Alkaline Phosphatase 245 U/L (38-126) H 06/06/19 12:23 Creatine Kinase < 20 U/L (55-170) L 06/06/19 19:41 CK-MB (CK-2) 1.12 ng/mL (<4.55) 06/06/19 19:41 Troponin I 0.016 ng/mL 06/06/19 19:41 C-Reactive Protein 13.7 mg/L (<10.0) H 05/16/19 10:47 NT-Pro-B Natriuret Pep 22185 pg/mL (<125) H 05/14/19 04:26 Total Protein 6.2 g/dL (6.3-8.2) L 06/06/19 12:23 Albumin 2.7 g/dL (3.5-5.0) L 06/10/19 05:42 Triglycerides 70 mg/dL (<150) 05/13/19 05:26 Cholesterol 159.24 mg/dL (0-200) 05/13/19 05:26 LDL Cholesterol Direct 119 mg/dL (<100) H 05/13/19 05:26 VLDL Cholesterol 14.0 mg/dL (10-31) 05/13/19 05:26 HDL Cholesterol 36 mg/dL (>40) L 05/13/19 05:26 Lipase 10.4 U/L (23-300) L 06/06/19 12:23 Vitamin B12 950.0 pg/mL (239-931) H 05/28/19 05:33 Folate 10.30 ng/mL (>2.76) 05/28/19 05:33 TSH 2.81 uIU/mL (0.47-4.68) 05/13/19 05:26 Urine Color BROWN 05/20/19 09:55 Urine Appearance SLIGHTLY-CLOUDY 05/20/19 09:55 Urine pH 5.0 (5.0-9.0) 05/20/19 09:55 Ur Specific [place] 1.016 05/20/19 09:55 Urine Protein 100 mg/dL (NEGATIVE) H 05/20/19 09:55 Urine Glucose (UA) NEGATIVE mg/dL (NEGATIVE) 05/20/19 09:55 Urine Ketones NEGATIVE mg/dL (NEGATIVE) 05/20/19 09:55 Urine Blood LARGE (NEGATIVE) H 05/20/19 09:55 Urine Nitrite NEGATIVE (NEGATIVE) 05/20/19 09:55 Urine Bilirubin NEGATIVE (NEGATIVE) 05/20/19 09:55 Urine Urobilinogen NEGATIVE mg/dL (<2.0) 05/20/19 09:55 Ur Leukocyte Esterase NEGATIVE (NEGATIVE) 05/20/19 09:55 Urine WBC (Auto) >182 /HPF 05/20/19 09:55 Urine RBC (Auto) >182 /HPF 05/20/19 09:55 U Hyaline Cast (Auto) Cancelled 05/19/19 17:45 Urine Bacteria (Auto) 3+ /HPF 05/20/19 09:55 Urine Red Cell Clumps Cancelled 05/19/19 17:45 Urine WBC Clumps MANY /HPF 05/20/19 09:55 Squamous Epi Cells Auto Cancelled 05/19/19 17:45 U Non-Squamous Epis Auto 3 /HPF 05/20/19 09:55 Calcium Carbonate Cryst Cancelled 05/19/19 17:45 Calcium Phosphate Cryst Cancelled 05/19/19 17:45 Calcium Oxalate Cr Auto Cancelled 05/19/19 17:45 Leucine Crystals Cancelled 05/19/19 17:45 Cystine Crystals Cancelled 05/19/19 17:45 Uric Acid Cryst (Auto) Cancelled 05/19/19 17:45 Triple Phos Cryst (Auto) Cancelled 05/19/19 17:45 Tyrosine Crystals Cancelled 05/19/19 17:45 Amorphous Sediment Auto Cancelled 05/19/19 17:45 Cellular Casts Cancelled 05/19/19 17:45 Epithelial Casts (Auto) Cancelled 05/19/19 17:45 Fatty Casts Cancelled 05/19/19 17:45 Granular Casts (Auto) Cancelled 05/19/19 17:45 Waxy Casts (Auto) Cancelled 05/19/19 17:45 Broad Casts Cancelled 05/19/19 17:45 RBC Casts (Auto) Cancelled 05/19/19 17:45 WBC Casts (Auto) Cancelled 05/19/19 17:45 Urine Mucus (Auto) OCC /LPF 05/20/19 09:55 U Trichomonas (Auto) Cancelled 05/19/19 17:45 Ur Yeast w Hyphae Cancelled 05/19/19 17:45 Urine Yeast (Budding) Cancelled 05/19/19 17:45 Urine Ascorbic Acid NEGATIVE (NEGATIVE) 05/20/19 09:55 Hep Bs Antigen Negative (Negative) 05/21/19 04:23 Hep Bs Antibody, Quant <3.1 mIU/mL (Immunity>9) L 05/21/19 04:23 Hep B Core Total Ab Negative (Negative) 05/21/19 04:23 HCV Quantitation HCV Not Detected IU/mL (.) 05/21/19 04:23 HCV RNA PCR Test Info Comment (.) 05/21/19 04:23 Slides for Path Review Cancelled 06/02/19 05:36 Blood Type A POSITIVE 06/06/19 06:53 Blood Type Confirm A POSITIVE 06/06/19 07:14 Antibody Screen NEGATIVE 06/06/19 06:53 Crossmatch See Detail 06/06/19 06:53 05/12/19 05/12/19 05/13/19 12:00 18:31 00:16 CK-MB (CK-2) Troponin I 0.039 0.041 0.039 NT-Pro-B Natriuret Pep 8970 H 05/13/19 05/14/19 06/06/19 09:35 04:26 07:03 CK-MB (CK-2) 4.88 H 1.21 Troponin I 0.047 0.016 NT-Pro-B Natriuret Pep 62150 H 06/06/19 06/06/19 12:23 19:41 CK-MB (CK-2) 1.11 1.12 Troponin I 0.015 0.016 NT-Pro-B Natriuret Pep Impressions: Chest X-Ray 05/12/19 11:53 IMPRESSION: No acute cardiopulmonary process. Chest X-Ray 05/14/19 00:00 IMPRESSION: No acute cardiopulmonary process. Chest X-Ray 05/15/19 15:34 IMPRESSION: Right jugular central line tip SVC. No Pneumothorax Renal Artery Duplex 05/20/19 06:00 IMPRESSION: Nondiagnostic study Chest X-Ray 05/20/19 09:58 IMPRESSION: Pulmonary edema pattern KUB X-Ray 05/23/19 00:00 IMPRESSION: NO RADIOGRAPHIC EVIDENCE FOR ACUTE ABDOMINAL DISEASE. Guidance Fluoroscopy 05/29/19 00:00 IMPRESSION: IMAGE(S) OBTAINED DURING PROCEDURE. Abdomen/Pelvis CT 06/03/19 12:27 IMPRESSION: 1. Basilar lung changes as above. Given history of significant nausea and vomiting, this could be due to aspiration pneumonia. A component of cardiogenic edema is also in the differential. 2. No distended bowel loops to suggest obstruction. There is mild ascites. Stroke Is this a Stroke Patient?: No Acute Heart Failure - Is this a Heart Failure Patient?: Yes Documentation of LVEF assessment?: Yes LVEF < 40%?: Yes-if yes answer questions a through e a) Discharged on ACEI?: No, document contraindications - Renal disease Reason(s) not discharge on ACEI: Impaied/worsening renal function b) Discharges on ARB?: No-document contraindications - Ending nephrology's Reason(s) not discharged on ARB: Impaired/worsening renal functions c) Discharged on ARNI?: No-Document Contraindications Reason(s) not discharged on ARNI: Impaired/worsening renal functions d) Discharged on evidence-based Beta laurie(carvedilol, sustained release metoprolol succinate, or bisoprolol)?: Yes e) For LVEF <35%, discharged on Aldosterone antagonist?: No-document contraincations Reason(s) not discharged on Aldosterone antagonist for LVEF < 35%: Renal dysfunction (creatinine >2.5 mg/dL in men or 2.0 mg/dL in women) 3. Anticoagulant therapy for permanect/persistent/paraoxysmal Afib or Aflutter: No, document contraindications Reason(s) not discharged on anticoagulant therapy for permanect/persistent/paraoxysmal Afib or Aflutter: Risk for bleeding, Repeated falls/unsteady gait Follow-up Appointment scheduled within 7 days?: Yes
--- NOTE | 2019-06-12 21:25 | Progress Note ---
Provider Note Provider Note: CARDIOLOGY PROGRESS NOTE by Dr. Radha Salmon on 06/12/2019. Subjective: The Patient Has Not Had Any Nausea Vomiting for the Last 24 Hours. He States He Wants to Eat Solid Food. He Denies Any Chest Pain or Discomfort. There Is No Shortness of Breath There Is No PND Orthopnea or Leg Edema. There Is No Arrhythmia Seen on the Monitor. There Is No TIA CVA Symptoms. PHYSICAL EXAMINATION: The patient appears to be chronically ill but in no acute distress. Selected Entries 06/12/19 06/12/19 06/12/19 14:40 15:04 16:00 Temperature 99.2 F Temperature Oral Source Pulse Rate 72 Heart Rate ( 70 Monitors) Respiratory 15 Rate Blood Pressure 107/54 L Blood Pressure 71 Mean BP Location Left Arm BP Position Supine O2 Sat by Pulse 95 Oximetry Oxygen Delivery Nasal Cannula Method ( includes room air) Fraction of 30 Inspired Oxygen (FIO2) Oxygen Flow 2.5 Rate Oxygen Delivery Room Air Method HEAD: Head is atraumatic normocephalic. Eyes: Pupils are equal round regular reactive light accommodation extraocular movements are normal there is no congenital pallor there is no scleral icterus. Ears: External auditory canals are clear, there are no lesions of the pinna. Nose: No deviated nasal septum and no inflammation of the nasal mucous membrane. Mouth: Mucous membranes of mouth are moist tongue is moist there is no ulcers there is no bleeding from the gums. Throat: There is no redness of the oropharynx there is no exudates. Skin: There is no petechia or ecchymosis there is no skin lesions or skin rashes. Neck: Neck is supple there is JVD present. Carotids equal there is no bruit there is no lymphadenopathy there is no neck stiffness. There is no goiter trachea central lungs: Lungs show diminished air entry and prolonged expiration. Scattered rhonchi and wheezing present. There is no no bibasilar rales of CHF. Few dry crackles in the right base. There is no chest wall tenderness. HEART: S1-S2 is heard there is no S3 gallop there is no S4 gallop S1 is of normal intensity. There is no rub. The systolic murmur of MR and TR. There is no prosthetic valve clicks heard. Abdomen: Abdomen is soft, mildly distended, no definite ascites. There is no hepatosplenomegaly. Bowel sounds well heard there is no tender areas of masses. There is no rebound guarding or rigidity. Extremities: Femorals are slightly diminished, there is no bruits. Leg pulses are diminished. There is trace 2- edema, with venous stasis dermatitis. There is no DVT or cellulitis there is no cyanosis or clubbing there is no DVT or cellulitis. There is no calf tenderness. CHEMICAL ENGINEER: The patient is awake alert oriented 3 with no focal deficits. But in spite of this he has slow mentation. Psychiatric: The patient judgment and insight are intact and his affect. The patient's 24-hour intake is 700 mL, and the 24-hour output is 2625 mL Labs- All tests 24 hr 06/12/19 04:56 Sodium 131.6 L Potassium 3.8 Chloride 91 L Carbon Dioxide 36 H Anion Gap 5 BUN 45 H Creatinine 2.27 H Est GFR ( Amer) 36 L Est GFR (MDRD) Non-Af 30 L Glucose 86 Calcium 8.7 Chest X-Ray 05/12/19 11:53 IMPRESSION: No acute cardiopulmonary process. Chest X-Ray 05/14/19 00:00 IMPRESSION: No acute cardiopulmonary process. Chest X-Ray 05/15/19 15:34 IMPRESSION: Right jugular central line tip SVC. No Pneumothorax Renal Artery Duplex 05/20/19 06:00 IMPRESSION: Nondiagnostic study Chest X-Ray 05/20/19 09:58 IMPRESSION: Pulmonary edema pattern KUB X-Ray 05/23/19 00:00 IMPRESSION: NO RADIOGRAPHIC EVIDENCE FOR ACUTE ABDOMINAL DISEASE. Guidance Fluoroscopy 05/29/19 00:00 IMPRESSION: IMAGE(S) OBTAINED DURING PROCEDURE. Abdomen/Pelvis CT 06/03/19 12:27 IMPRESSION: 1. Basilar lung changes as above. Given history of significant nausea and vomiting, this could be due to aspiration pneumonia. A component of cardiogenic edema is also in the differential. 2. No distended bowel loops to suggest obstruction. There is mild ascites. iMPRESSION/RECOMMENDATION: 1. Acute respiratory failure secondary to combination of acute on chronic systolic heart failure, acute renal failure causing volume overload, acute exacerbation of COPD, and severe pulmonary hypertension, and severe cardiomyopathy this is immensely improved and the patient is on nasal oxygen as needed and not on BiPAP anymore. 2. Cardiomyopathy with severely reduced LV ejection fraction. Continue patient on Toprol-XL, small dose of ARB. Add hydralazine and nitrates. The patient is well compensated from his heart. Failure. 3. Acute exacerbation COPD: This is resolved. 4. Hypertension: At present blood pressure reasonable. 5. Severe pulmonary hypertension: He is on nitrates and hence cannot use sildenafil. 6. Acute on chronic renal failure. Avoid nephrotoxic drugs. The patient has been started on dialysis, in spite of this patient's renal function is deteriorating. The patient is now dialysis dependent and has reached end-stage renal disease. 7. Bipolar disorder 8. Tobacco abuse disorder. 9 coronary artery disease: History of coronary bypass graft surgery: No angina and troponin so far is not elevated. 10. Peripheral vascular disease: This will be addressed later on. 11. History of valvular repair: Details not available. Try to contact [facility] but they say they have not heard of the patient, and have no records on him. 12. Severe hearing loss: 13. Scabies. This is resolved. 14. Hematemesis and nausea. This is resolved. No recurrence. Medications reviewed. Medical regimen and management plan discussed with attending physician. Discussed with nephrology. Medical decision making is of high complexity, in view of the need to start new medication of his Diovan. 40 minutes spent as patient more than 50% time spent in direct patient care. Patient is being transferred to a halfway facility. Will sign off. The patient will see me on an outpatient basis. The patient has my contact numbers including myself or my office numbers.
[2019-06-12] MEDS: QUETIAPINE FUMARATE 25 MG TABLET PO PRN (23:11)
[2019-06-12] MEDS: QUETIAPINE FUMARATE 100 MG TABLET PO SCH (23:12)
[2019-06-13] MEDS: ONDANSETRON HCL INJ/PF 4 MG/2 ML SDV IV SCH ×2 (03:45→08:52)
[2019-06-13 05:42] LABS: ANION GAP 8 (5-19); BLOOD UREA NITROGEN 50 mg/dL (7-20); CALCIUM 9.2 mg/dL (8.4-10.2); CARBON DIOXIDE 33 mmol/L (22-30); CHLORIDE 89 mmol/L (98-107); GLUCOSE 118 mg/dL (75-110); POTASSIUM 4.3 mmol/L (3.6-5.0)
[2019-06-13] MEDS: HEPARIN SOD (PORCINE) 5,000 UNIT/ML 1 ML VIAL SUBCUT SCH (05:55)
[2019-06-13 08:23] VITALS: BP 110/67
[2019-06-13] MEDS: SUCRALFATE 1 GM TABLET PO SCH (08:52)
[2019-06-13] MEDS: VALSARTAN 40 MG TABLET PO SCH (09:29)
[2019-06-13] MEDS: GABAPENTIN 300 MG CAPSULE PO SCH (09:29)
[2019-06-13] MEDS: METOPROLOL SUCCINATE 25 MG TAB.SR.24H PO SCH (09:29)
[2019-06-13] MEDS: FUROSEMIDE 40 MG TABLET PO SCH (09:29)
[2019-06-13] MEDS: PANTOPRAZOLE SODIUM 40 MG VIAL IV SCH (09:29)
[2019-06-13] MEDS: NITROGLYCERIN 15 MG (0.6 MG/1 HR) PATCH.TD24 TD SCH (09:29)
[2019-06-13] MEDS: FLUTICASONE/UMECLIDIN/VILANTER 100-62.5-25 MCG/DOSE IH SCH (09:30)
[2019-06-13] MEDS: MINERAL OIL/PETROLATUM,WHITE CREAM 114 GM TP SCH (09:31)
== END 2019-06-13 09:47 | DRG 291 ==
LOC: ER 11:51 → EH 14:02 → 3S 15:26
PROVIDERS: ADMIT Internal Medicine; ATTEND Physician Assistant
PROC: 5A09557 Assistance with Respiratory Ventilation, Greater than 96 Consecutive Hours, Continuous Positive Airway Pressure (ICD-10-PCS; 2019-05-12)
PROC: 02HV33Z Insertion of Infusion Device into Superior Vena Cava, Percutaneous Approach (ICD-10-PCS; principal; 2019-05-15)
PROC: B548ZZA Ultrasonography of Superior Vena Cava, Guidance (ICD-10-PCS; 2019-05-15)
PROC: 0JHL3XZ Insertion of Tunneled Vascular Access Device into Right Upper Leg Subcutaneous Tissue and Fascia, Percutaneous Approach (ICD-10-PCS; 2019-05-20)
PROC: 06H033Z Insertion of Infusion Device into Inferior Vena Cava, Percutaneous Approach (ICD-10-PCS; 2019-05-20)
PROC: 5A1D70Z Performance of Urinary Filtration, Intermittent, Less than 6 Hours Per Day (ICD-10-PCS; 2019-05-21)
PROC: 5A1D70Z Performance of Urinary Filtration, Intermittent, Less than 6 Hours Per Day (ICD-10-PCS; 2019-05-22)
PROC: 5A1D70Z Performance of Urinary Filtration, Intermittent, Less than 6 Hours Per Day (ICD-10-PCS; 2019-05-23)
PROC: 5A1D70Z Performance of Urinary Filtration, Intermittent, Less than 6 Hours Per Day (ICD-10-PCS; 2019-05-26)
PROC: 5A1D70Z Performance of Urinary Filtration, Intermittent, Less than 6 Hours Per Day (ICD-10-PCS; 2019-05-28)
PROC: 0JH63XZ Insertion of Tunneled Vascular Access Device into Chest Subcutaneous Tissue and Fascia, Percutaneous Approach (ICD-10-PCS; 2019-05-29)
PROC: 02HV33Z Insertion of Infusion Device into Superior Vena Cava, Percutaneous Approach (ICD-10-PCS; 2019-05-29)
PROC: B548ZZA Ultrasonography of Superior Vena Cava, Guidance (ICD-10-PCS; 2019-05-29)
PROC: 5A1D70Z Performance of Urinary Filtration, Intermittent, Less than 6 Hours Per Day (ICD-10-PCS; 2019-05-30)
PROC: 5A1D70Z Performance of Urinary Filtration, Intermittent, Less than 6 Hours Per Day (ICD-10-PCS; 2019-06-02)
PROC: 5A1D70Z Performance of Urinary Filtration, Intermittent, Less than 6 Hours Per Day (ICD-10-PCS; 2019-06-04)
PROC: 0DB48ZX Excision of Esophagogastric Junction, Via Natural or Artificial Opening Endoscopic, Diagnostic (ICD-10-PCS; 2019-06-06)
PROC: 30233N1 Transfusion of Nonautologous Red Blood Cells into Peripheral Vein, Percutaneous Approach (ICD-10-PCS; 2019-06-06)
PROC: 5A1D70Z Performance of Urinary Filtration, Intermittent, Less than 6 Hours Per Day (ICD-10-PCS; 2019-06-06)
DX: I13.0 Hypertensive heart and chronic kidney disease with heart failure and stage 1 through stage 4 chronic kidney disease, or unspecified chronic kidney disease (principal); N17.0 Acute kidney failure with tubular necrosis; J96.01 Acute respiratory failure with hypoxia; I50.43 Acute on chronic combined systolic (congestive) and diastolic (congestive) heart failure; E87.2 Acidosis; K22.10 Ulcer of esophagus without bleeding; L97.319 Non-pressure chronic ulcer of right ankle with unspecified severity; J44.1 Chronic obstructive pulmonary disease with (acute) exacerbation; L03.116 Cellulitis of left lower limb; L03.115 Cellulitis of right lower limb; D62 Acute posthemorrhagic anemia; N17.9 Acute kidney failure, unspecified; K22.8 Other specified diseases of esophagus; N18.3 Chronic kidney disease, stage 3 (moderate); K21.9 Gastro-esophageal reflux disease without esophagitis; L97.519 Non-pressure chronic ulcer of other part of right foot with unspecified severity; I25.10 Atherosclerotic heart disease of native coronary artery without angina pectoris; I73.9 Peripheral vascular disease, unspecified; I27.20 Pulmonary hypertension, unspecified; I87.2 Venous insufficiency (chronic) (peripheral); E83.39 Other disorders of phosphorus metabolism; E83.41 Hypermagnesemia; B86 Scabies; B95.61 Methicillin susceptible Staphylococcus aureus infection as the cause of diseases classified elsewhere; B96.89 Other specified bacterial agents as the cause of diseases classified elsewhere; F31.9 Bipolar disorder, unspecified; F17.210 Nicotine dependence, cigarettes, uncomplicated; Z99.81 Dependence on supplemental oxygen; Z79.01 Long term (current) use of anticoagulants; Z79.51 Long term (current) use of inhaled steroids; Z79.899 Other long term (current) drug therapy; Z60.2 Problems related to living alone
CPT/HCPCS: 00532; 00731; 36415; 36430; 36600; 43239; 71045; 71046; 74018; 74176; 77001; 80048; 80053; 80061; 80076; 81001; 82040; 82550; 82553; 82607; 82728; 82746; 82803; 82962; 83036; 83540; 83550; 83605; 83690; 83735; 83880; 84100; 84443; 84484; 85025; 85027; 85045; 85610; 85652; 86140; 86317; 86704; 86850; 86900; 86901; 86920; 87040; 87070; 87077; 87150; 87186; 87205; 87340; 87522; 88305; 93005; 93010; 93306; 93925; 93975; 94660; 94762; 96365; 96375; 99285; C1713; C1751; C1752; C1769; C1887; C9113; J0360; J0690; J0692; J1250; J1642; J1644; J1940; J2001; J2060; J2250; J2270; J2405; J2543; J2597; J2704; J2920; J2930; J3010; J3370; J3490; J7030; J7620; P9016; Q5105

== ENCOUNTER 2019-06-17 11:12 | Inpatient (IN) | payer MEDICARE, MEDICAID ==
--- NOTE | 2019-06-17 11:28 | ER Document Report ---
ED General - General Stated Complaint: HEART PROBLEMS Time Seen by Provider: 06/17/19 11:15 Primary Care Provider: MARIAN JULIEN FNP-BC [NO LOCAL MD] - Follow up as needed Mode of Arrival: Medic Cannot obtain history due to: Mentally challenged, Altered mental status Notes: 58-year-old male from [facility] rehab because of GI bleed and bilateral feet with stasis dermatitis and stasis ulcers. He presents with acute mental status changes according to staff. [facility] found patient with jerking motions which appear to be chronic according to staff. Patient has Dr. Hastings patient. Patient is on Xarelto at this time. Patient has bruising of his abdomen which appears to be subcu abdominal Lovenox shots as well as left flank bruising approximately 15 cm length by 6 cm width. Patient's main complaint is that he has bilateral feet pain. Right foot has a tegaderm in place and the left foot has kerlex in place around his left heel and bilateral malleoli. Also patient has a midline scar over his chest and when asked whether he had a CABG ; he cannot advise yes or no. Patient is currently on Seroquel. Chest x-ray suggestive of pulmonary vascular congestion and left upper left lower and right lower lobes. 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 In early May he presented with a one-week history of worsening bilateral leg pain and shortness of breath and orthopnea and was upon EMS arrival found to be cyanotic with saturations in the 80s. He was given IV Solu-Medrol and placed on oxygen patient arrives today with guaiac positive rectal occult testing. He also has a history of hyperlipidemia and respiratory failure. He also is a current daily smoker. He has a history of CABG and valve replacement and and bipolar disorder. Patient also has a history of chronic kidney disease and GERD and arthritis. In physical appearance patient has a paleness of skin with long kent hair at least 2 feet in length.. TRAVEL OUTSIDE OF THE [place] IN LAST 30 DAYS: No - HPI Onset: This morning - Related Data Allergies/Adverse Reactions: risperidone [From Risperdal] Allergy (Verified 06/17/19 11:38) trazodone Allergy (Verified 06/17/19 11:38) Past Medical History - General Information source: Patient, Emergency Med Personnel - [facility] as main spokes person - Social History Smoking Status: Current Every Day Smoker Cigarette use (# per day): Yes Chew tobacco use (# tins/day): No Smoking Education Provided: Yes Frequency of alcohol use: None Drug Abuse: Methamphetamine Lives with: Group Home Family History: Reviewed & Not Pertinent - Past Medical History Cardiac Medical History: Reports: Hx Congestive Heart Failure, Hx Coronary Artery Disease, Hx Hypercholesterolemia, Hx Hypertension Pulmonary Medical History: Reports: Hx COPD, Hx Respiratory Failure Renal/ Medical History: Denies: Hx Peritoneal Dialysis GI Medical History: Reports: Hx Gastroesophageal Reflux Disease Musculoskeletal Medical History: Reports Hx Arthritis Psychiatric Medical History: Reports: Hx Bipolar Disorder Past Surgical History: Reports: Hx Coronary Artery Bypass Graft, Hx Open Heart Surgery, Hx Valve Replacement Review of Systems - Review of Systems Constitutional: See HPI, Malaise, Weakness, Recent illness EENT: No symptoms reported Cardiovascular: See HPI, Dizziness, Lightheaded Respiratory: No symptoms reported Gastrointestinal: See HPI, Black stools Genitourinary: No symptoms reported Male Genitourinary: No symptoms reported Musculoskeletal: See HPI, Ankle swelling Skin: See HPI, Rash - Bilateral legs and feet with stasis dermatitis and cellulitis with erythema. Wounds as per HPI to left greater than right malleoli Hematologic/Lymphatic: No symptoms reported Neurological/Psychological: See HPI, Confusion, Weakness, Other - Parkinsonian- like cogwheeling jerks of legs and arms Physical Exam - Vital signs Vitals: Resp 20 06/17/19 04:55 - General General appearance: Alert, Anxious - HEENT Head: Normocephalic Eyes: Pale conjunctiva Cornea: Normal Extraocular movements intact: Yes Eyelashes: Normal Pupils: Pinpoint Mucous membranes: Dry Pharynx: Normal Neck: Normal - Respiratory Respiratory status: No respiratory distress Chest status: Nontender Breath sounds: Normal Chest palpation: Normal - Cardiovascular Rhythm: Regular Heart sounds: Normal auscultation Murmur: No Friction rub: No Manuela's crunch: No Course - Vital Signs Vital signs: Temp Pulse Resp BP Pulse Ox 15 159/88 H 87 L 06/17/19 12:16 06/17/19 12:16 06/17/19 12:16 - Laboratory Result Diagrams: 06/17/19 11:25 06/17/19 11:25 Laboratory results interpreted by me: 06/17/19 06/17/19 06/17/19 11:22 11:25 11:25 WBC 12.0 H RBC 3.77 L Hgb 10.0 L Hct 30.9 L MCH 26.4 L RDW 24.8 H Lymph % (Auto) 8.2 L Absolute Neuts (auto) 9.5 H Seg Neutrophils % 79.4 H PT APTT Chloride 97 L Carbon Dioxide 31 H BUN 69 H Creatinine 3.64 H Est GFR ( Amer) 21 L Est GFR (MDRD) Non-Af 17 L POC Glucose 112 H Total Bilirubin 1.4 H Direct Bilirubin 0.5 H Alkaline Phosphatase 273 H Creatine Kinase < 20 L NT-Pro-B Natriuret Pep Albumin 3.4 L 06/17/19 06/17/19 11:25 11:25 WBC RBC Hgb Hct MCH RDW Lymph % (Auto) Absolute Neuts (auto) Seg Neutrophils % PT 16.2 H APTT 41.0 H Chloride Carbon Dioxide BUN Creatinine Est GFR ( Amer) Est GFR (MDRD) Non-Af POC Glucose Total Bilirubin Direct Bilirubin Alkaline Phosphatase Creatine Kinase NT-Pro-B Natriuret Pep 88823 H Albumin - Diagnostic Test Radiology reviewed: Reports reviewed - EKG Interpretation by Me EKG shows normal: Sinus rhythm Rate: Normal Rhythm: NSR Critical Care Note - Critical Care Note Total time excluding time spent on procedures (mins): 90 Comments: I called Adien office but unable to reach him at 1345 (recorder only); I spoke with Dr. Cantu about this patient at [address] Barber be called. He knew this patient and advises he is very [place] and was on dialysis but this is been discontinued. Patient is now satting 95% on 4 L nasal cannula. I spoke with Dr. Barber and he advises admitting patient after calling dialysis Dr. Welch fifth floor Discharge - Discharge Clinical Impression: Mental status change resolved, Stasis dermatitis of both legs, Positive fecal occult blood test, ESRD (end stage renal disease) on dialysis CHF (congestive heart failure) Qualifiers: Heart failure type: unspecified Heart failure chronicity: unspecified Qualified Code(s): I50.9 - Heart failure, unspecified CKD (chronic kidney disease) Qualifiers: Chronic kidney disease stage: unspecified stage Qualified Code(s): N18.9 - Chronic kidney disease, unspecified Acute exacerbation of congestive heart failure Qualifiers: Heart failure type: unspecified Qualified Code(s): I50.9 - Heart failure, unspecified Condition: Fair Disposition: ADMITTED INPATIENT Admitting Provider: kayla(hospitalist) Unit Admitted: ICU - [facility] 19 floor 5th floor Referrals: MARIAN JULIEN FNP-BC [NO LOCAL MD] - Follow up as needed
[2019-06-17] MEDS ORDERED: NORMAL SALINE 1000 ML 1,000 ML IV ONE (11:30)
[2019-06-17 11:58] LABS: ABSOLUTE BASOPHILS # (AUTO) 0.2 10^3/uL (0.0-0.2); ABSOLUTE EOSINOPHILS # (AUTO) 0.2 10^3/uL (0.0-0.6); ABSOLUTE MONOCYTES (AUTO) 1.1 10^3/uL (0.1-1.4); ABSOLUTE NEUT (AUTO) 9.5 10^3/uL (1.7-8.2); BASOPHILS % (AUTO) 1.7 % (0-2); EOSINOPHILS % (AUTO) 1.3 % (0-6); HEMATOCRIT 30.9 % (37.9-51.0); LYMPHOCYTES % (AUTO) 8.2 % (13-45); MEAN CORPUSCULAR HEMOGLOBIN 26.4 pg (27.0-33.4); MEAN CORPUSCULAR HGB CONC 32.2 g/dL (32.0-36.0); MEAN CORPUSCULAR VOLUME 82 fl (80-97); MONOCYTES % (AUTO) 9.4 % (3-13); PLATELET COUNT 381 10^3/uL (150-450); RED BLOOD COUNT 3.77 10^6/uL (4.35-5.55); RED CELL DISTRIBUTION WIDTH 24.8 % (11.5-14.0); SEGMENTED NEUTROPHILS % (AUTO) 79.4 % (42-78); TOTAL CELLS COUNTED % (AUTO) 100 %
[2019-06-17 11:59] LABS: INTERNATIONAL RATION (INR) 1.29; PROTHROMBIN TIME 16.2 SEC (11.4-15.4)
[2019-06-17] MEDS ORDERED: BUMETANIDE INJ/PF 1 MG/4 ML SDV IV ONE (12:09)
[2019-06-17 12:15] LABS: ALBUMIN 3.4 g/dL (3.5-5.0); ALKALINE PHOSPHATASE 273 U/L (38-126); ANION GAP 10 (5-19); ASPARTATE AMINO TRANSFERASE 21 U/L (17-59); BILIRUBIN,DIRECT 0.5 mg/dL (0.0-0.4); BILIRUBIN,TOTAL 1.4 mg/dL (0.2-1.3); BLOOD UREA NITROGEN 69 mg/dL (7-20); CALCIUM 9.3 mg/dL (8.4-10.2); CARBON DIOXIDE 31 mmol/L (22-30); CHLORIDE 97 mmol/L (98-107); GLUCOSE 107 mg/dL (75-110); TOTAL PROTEIN 7.2 g/dL (6.3-8.2)
[2019-06-17 12:21] LABS: CREATINE KINASE < 20 U/L (55-170)
[2019-06-17 12:32] LABS: ANISOCYTOSIS 3+; HYPOCHROMASIA SLIGHT; OVALOCYTES SLIGHT; PLATELET COMMENT ADEQUATE; POIKILOCYTOSIS 1+; POLYCHROMASIA SLIGHT; TEAR DROP CELLS SLIGHT
--- NOTE | 2019-06-17 12:37 | RADIOLOGY REPORT (SQ) ---
EXAM DESCRIPTION: CHEST SINGLE VIEW IMAGES COMPLETED DATE/TIME: 06/17/2019 12:27 pm REASON FOR STUDY: [facility] [place] COMPARISON: 05/20/2019 EXAM PARAMETERS: NUMBER OF VIEWS: One view. TECHNIQUE: Single frontal radiographic view of the chest acquired. RADIATION DOSE: NA LIMITATIONS: None. FINDINGS: LUNGS AND PLEURA: Persistent diffuse alveolar airspace disease. This is most marked in th e lung bases in left upper lobe. There is been some redistribution of the disease when compared to MEDIASTINUM AND HILAR STRUCTURES: No masses. Contour normal. HEART AND VASCULAR STRUCTURES: Stable in appearance. BONES: No acute findings. HARDWARE: Sternotomy wires are in place. OTHER: No other significant finding. IMPRESSION: Findings are most consistent with pulmonary edema. Infectious or inflammatory process i s thought be less likely. TECHNICAL DOCUMENTATION: JOB ID: [id number] 2010 [employer]- All Rights Reserved Reading location - IP/workstation name: [email or web address]
--- NOTE | 2019-06-17 13:14 | RADIOLOGY REPORT (SQ) ---
EXAM DESCRIPTION: CT HEAD WITHOUT IMAGES COMPLETED DATE/TIME: 06/17/2019 1:04 pm REASON FOR STUDY: [facility] [place] COMPARISON: 05/25/2018 TECHNIQUE: Axial images acquired through the brain without intravenous contrast. Images reviewed wi th bone, brain and subdural windows. Additional sagittal and coronal reconstructions were generated. Images stored on PACS. All CT scanners at this facility use dose modulation, iterative reconstruction, and/or weight based d osing when appropriate to reduce radiation dose to as low as reasonably achievable (ALARA). [facility]: Dose Right [facility]: CareDose [facility]: Dose Right [facility]: Teradose 4D [facility]: i3 membrane RADIATION DOSE: CT Rad equipment meets quality standard of care and radiation dose reduction techniq ues were employed. CTDIvol: 48.7 - 50.1 mGy. DLP: 2038 mGy-cm. mGy. LIMITATIONS: None. FINDINGS: VENTRICLES: Prominent. CEREBRUM: No masses. No hemorrhage. No midline shift. Areas of low density in the white matter mos t likely due to chronic micro-vascular ischemic change. No evidence for acute infarction. CEREBELLUM: No masses. No hemorrhage. No alteration of density. No evidence for acute infarction. EXTRAAXIAL SPACES: Mild age-related involutional change. No fluid collections. No masses. ORBITS AND GLOBE: No intra- or extraconal masses. Normal contour of globe without masses. CALVARIUM: No fracture. PARANASAL SINUSES: No fluid or mucosal thickening. SOFT TISSUES: No mass or hematoma. OTHER: No other significant finding. IMPRESSION: MILD CHRONIC CHANGES OF ATROPHY AND MICROVASCULAR ISCHEMIA. NO ACUTE PROCESS. EVIDENCE OF ACUTE STROKE: NO. TECHNICAL DOCUMENTATION: JOB ID: [id number] Quality ID # [id number]: Final reports with documentation of one or more dose reduction techniques (e.g., Au tomated exposure control, adjustment of the mA and/or kV according to patient size, use of iterative reconstruction technique) 2010 [employer]- All Rights Reserved Reading location - IP/workstation name: [email or web address]
--- NOTE | 2019-06-17 13:24 | RADIOLOGY REPORT (SQ) ---
EXAM DESCRIPTION: CT ABD/PELVIS NO ORAL OR IV IMAGES COMPLETED DATE/TIME: 06/17/2019 1:04 pm REASON FOR STUDY: [facility] [place] COMPARISON: 06/03/2019 TECHNIQUE: CT scan of the abdomen and pelvis performed without intravenous or oral contrast. Images reviewed with lung, soft tissue, and bone windows. Reconstructed coronal and sagittal MPR images revi ewed. All images stored on PACS. All CT scanners at this facility use dose modulation, iterative reconstruction, and/or weight based d osing when appropriate to reduce radiation dose to as low as reasonably achievable (ALARA). [facility]: Dose Right [facility]: CareDose [facility]: Dose Right [facility]: Teradose 4D [facility]: Smart [employer] RADIATION DOSE: CT Rad equipment meets quality standard of care and radiation dose reduction techniq ues were employed. CTDIvol: 22.4 mGy. DLP: 1332 mGy-cm.mGy. LIMITATIONS: None. FINDINGS: LOWER CHEST: Persistent bilateral basilar airspace disease. Overall this is improved when compared to prior study. Small right pleural effusion is significantly improved. Stable bilateral pleural thickening. NON-CONTRASTED LIVER, SPLEEN, ADRENALS: Evaluation limited by lack of IV contrast. No identified sign ificant masses. PANCREAS: No masses. No peripancreatic inflammatory changes. GALLBLADDER: No identified stones by CT criteria. No inflammatory changes to suggest cholecystitis. RIGHT KIDNEY AND URETER: No suspicious masses. Assessment limited by lack of IV contrast. No signif icant calcifications. No hydronephrosis or hydroureter. LEFT KIDNEY AND URETER: No suspicious masses. Assessment limited by lack of IV contrast. No signifi cant calcifications. No hydronephrosis or hydroureter. AORTA AND RETROPERITONEUM: No aneurysm. No retroperitoneal masses or adenopathy. BOWEL AND PERITONEAL CAVITY: No focal inflammatory changes. Small amount of ascites is again noted b ut improved from prior study. APPENDIX: Normal. PELVIS, BLADDER, AND ABDOMINAL WALL:Small amount of free fluid the pelvis. BONES: There is a small amount of air in the bladder presumably iatrogenic. OTHER: IVC filter is in place. The legs extend outside of the IVC lumen. 1 of the leg appears to pe netrate the infrarenal aorta this is stable however dating back to May 2018 IMPRESSION: Small amount of free fluid improved from prior exam. Bibasilar airspace disease is agai n noted mildly improved from prior exam as well. Other findings as described. COMMENT: Quality ID # [id number]: Final reports with documentation of one or more dose reduction techniques (e.g., Automated exposure control, adjustment of the mA and/or kV according to patient size, use of iterative reconstruction technique) TECHNICAL DOCUMENTATION: JOB ID: [id number] 2010 [employer]- All Rights Reserved Reading location - IP/workstation name: [email or web address]
[2019-06-17 13:55] LABS: A TYPE INFLUENZA AG NEGATIVE (NEGATIVE); B INFLUENZA AG NEGATIVE (NEGATIVE)
[2019-06-17 14:20] LABS: APPEARANCE,URINE CLEAR; BILIRUBIN,URINE NEGATIVE (NEGATIVE); COLOR,URINE YELLOW; GLUCOSE, URINE NEGATIVE (NEGATIVE); KETONES,URINE NEGATIVE (NEGATIVE); LEUKOCYTE ESTERASE,URINE NEGATIVE (NEGATIVE); NITRITE,URINE NEGATIVE (NEGATIVE); PROTEIN,URINE NEGATIVE (NEGATIVE); URINE SPECIFIC GRAVITY 1.006; UROBILINOGEN,URINE NEGATIVE mg/dL (<2.0)
[2019-06-17] MEDS ORDERED: VANCOMYCIN HCL INJ 1000 MG VIAL IV ONE (14:27)
[2019-06-17 17:17] LABS: ARTERIAL BLOOD BASE EXCESS 3.7 mmol/L; ARTERIAL BLOOD H2CO3 1.24 mmol/L (1.05-1.35); ARTERIAL BLOOD PCO2 41.2 mmHg (35-45); ARTERIAL BLOOD PH 7.45 (7.35-7.45); ARTERIAL BLOOD TOTAL CO2 29.3 mmol/L (23-27)
[2019-06-17 17:18] LABS: ARTERIAL BLOOD FIO2 4
[2019-06-17] MEDS ORDERED: ONDANSETRON 4 MG TAB.RAPDIS PO PRN (18:20)
[2019-06-17] MEDS ORDERED: ONDANSETRON HCL INJ/PF 4 MG/2 ML SDV IV PRN (18:20)
[2019-06-17] MEDS ORDERED: ACETAMINOPHEN 325 MG TABLET PO PRN ×2 (18:20→18:31)
[2019-06-17] MEDS ORDERED: DOCUSATE SODIUM 100 MG CAPSULE PO PRN (18:20)
[2019-06-17] MEDS ORDERED: ALBUTEROL SULFATE HFA (90 MCG/PUFF) 8 GM MDI IH PRN (18:31)
--- NOTE | 2019-06-17 18:48 | PDOC H&P ---
History of Present Illness Admission Date/PCP: 06/17/19 15:07 SB NELSON DO History of Present Illness: JUJU ANDRADE is a 58 year old male with past medical history as noted below who presents after 1 day history of progressive confusion, rectal bleeding, shortness of breath, and chronic stasis dermatitis of his feet and has become painful, noted by the nurses at his nursing facility, prompted EMS transport to ED for further evaluation. Patient is an extremely poor historian due to severe dementia and chronic brain damage from reported long-term substance abuse. On admission, patient has volume overload noted on chest x-ray, BNP over 15,000, crackles on exam. Nephrology consulted on admission by ED as patient has required dialysis for volume removal in the past. Creatinine is also notably elevated at 3.64 on admission which is well above his baseline in the twos. Hemoglobin is 10 on admission which appears to be actually above his baseline based on previous records. No active bleeding seen on admission. Per his home medication list, there does not appear to be any anticoagulants listed. Past Medical History Cardiac Medical History: Reports: Congestive Heart Failure, Coronary Artery Disease, Hyperlipidema, Hypertension Pulmonary Medical History: Reports: Chronic Obstructive Pulmonary Disease (COPD), Respiratory Failure GI Medical History: Reports: Gastroesophageal Reflux Disease Musculoskeltal Medical History: Reports: Arthritis Psychiatric Medical History: Reports: Bipolar Disorder Past Surgical History Past Surgical History: Reports: Coronary Artery Bypass Graft, Valve Replacement Social History Information Source: Patient, Emergency Med Personnel, Office Lives with: [facility] Smoking Status: Current Every Day Smoker Frequency of Alcohol Use: None Hx Recreational Drug Use: No Hx Prescription Drug Abuse: No - Advance Directive Resuscitation Status: Full Code Surrogate healthcare decision maker:: There is no M POA listed in the chart and reportedly the patient has told staff he has no one that he wishes to be his medical power of corporate associate attorney. Family History Family History: Reviewed & Not Pertinent Parental Family History Reviewed: Yes Children Family History Reviewed: Unknown Sibling(s) Family History Reviewed.: Unknown Medication/Allergy Home Medications: Albuterol Sulfate [Ventolin Hfa 8 gm Mdi] 2 puff IH Q6HP PRN 04/30/19 Thiamine HCl [Thiamine 100 mg Tablet] 100 mg PO DAILY 04/30/19 Multivitamin/Iron/Folic Acid [Centrum Adults Tablet] 1 each PO DAILY 05/12/19 Vitamin B Complex/Folic Acid [B-Complex Tablet] 1 tab PO DAILY 05/12/19 Fluticasone/Umeclidin/Vilanter [Trelegy 100-62.5-25 Mcg Ellipta 14 Dose/Dpi] 1 inh IH DAILY inhaler 06/12/19 Furosemide [Lasix 40 mg Tablet] 40 mg PO TID tablet 06/12/19 Gabapentin [Neurontin 300 mg Capsule] 300 mg PO DAILY capsule 06/12/19 Metoprolol Succinate [Toprol Xl 25 mg Tab.sr] 25 mg PO Q12 tab.sr.24h 06/12/19 Mineral Oil/Petrolatum,White [Eucerin Cream 114 gm] 1 applic TP DAILY jar 06/12/19 Nitroglycerin [Nitro-Dur 15 mg (0.6 mg/1 Hr) Transderm Patch] 1 each TD DAILY patch.td24 06/12/19 Ondansetron [Zofran Odt 4 mg Tablet] 4 mg PO Q6HP PRN 7 Days #30 tab.rapdis 06/12/19 Pantoprazole Sodium [Protonix [address] Tablet] 20 mg PO QAM 30 Days #30 tablet.dr 06/12/19 Quetiapine Fumarate [Seroquel 100 mg Tablet] 150 mg PO QHS tablet 06/12/19 Sucralfate [Carafate 1 gm Tablet] 1 gm PO ACHS tablet 06/12/19 Valsartan [Diovan 40 mg Tablet] 40 mg PO DAILY tablet 06/12/19 Acetaminophen [Tylenol 325 mg Tablet] 650 mg PO Q6HP PRN 06/17/19 Baclofen [Baclofen 10 mg Tablet] 10 mg PO TIDP PRN 06/17/19 Allergies/Adverse Reactions: risperidone [From Risperdal] Allergy (Verified 06/17/19 11:38) trazodone Allergy (Verified 06/17/19 11:38) Review of Systems All systems: reviewed and no additional remarkable complaints except as stated - See HPI for full review of systems, otherwise negative. Extremely limited by patient's severe dementia. Physical Exam Vital Signs: Temp Pulse Resp BP Pulse Ox 98.2 F 20 131/54 H 99 06/17/19 17:00 06/17/19 17:31 06/17/19 17:31 06/17/19 17:31 Intake & Output 06/16/19 06/17/19 06/18/19 06:59 06:59 06:59 Weight 100.8 kg General appearance: PRESENT: no acute distress, well-developed, well-nourished Head exam: PRESENT: atraumatic, normocephalic Eye exam: PRESENT: conjunctiva pale Mouth exam: PRESENT: moist Respiratory exam: PRESENT: clear to auscultation torsten, crackles, unlabored. ABSENT: accessory muscle use, tachypnea, wheezes Cardiovascular exam: PRESENT: RRR. ABSENT: diastolic murmur, rubs, systolic murmur GI/Abdominal exam: PRESENT: normal bowel sounds, soft. ABSENT: distended, guarding, mass, organolmegaly, rebound, tenderness Rectal exam: PRESENT: deferred Extremities exam: PRESENT: pedal edema, tenderness Neurological exam: PRESENT: alert, altered, awake. ABSENT: oriented to person, oriented to place, oriented to time, oriented to situation Psychiatric exam: PRESENT: flat affect, normal mood Skin exam: PRESENT: dry, intact Results Laboratory Results: 06/17/19 11:25 06/17/19 11:25 06/17/19 06/17/19 06/17/19 11:25 11:25 14:00 WBC 12.0 H RBC 3.77 L Hgb 10.0 L Hct 30.9 L MCV 82 MCH 26.4 L MCHC 32.2 RDW 24.8 H Plt Count 381 Seg Neutrophils % 79.4 H Carbonic Acid HCO3/H2CO3 Ratio ABG pH ABG pCO2 ABG pO2 ABG HCO3 ABG O2 Saturation ABG Base Excess FiO2 Sodium 137.9 Potassium 5.0 Chloride 97 L Carbon Dioxide 31 H Anion Gap 10 BUN 69 H Creatinine 3.64 H Est GFR ( Amer) 21 L Glucose 107 Calcium 9.3 Total Bilirubin 1.4 H AST 21 Alkaline Phosphatase 273 H Total Protein 7.2 Albumin 3.4 L Urine Color YELLOW Urine Appearance CLEAR Urine pH 8.0 Ur Specific [place] 1.006 Urine Protein NEGATIVE Urine Glucose (UA) NEGATIVE Urine Ketones NEGATIVE Urine Blood NEGATIVE Urine Nitrite NEGATIVE Ur Leukocyte Esterase NEGATIVE Urine WBC (Auto) 0 Urine RBC (Auto) 0 06/17/19 14:57 WBC RBC Hgb Hct MCV MCH MCHC RDW Plt Count Seg Neutrophils % Carbonic Acid 1.24 HCO3/H2CO3 Ratio 22:1 ABG pH 7.45 ABG pCO2 41.2 ABG pO2 87.0 ABG HCO3 28.0 H ABG O2 Saturation 97.0 ABG Base Excess 3.7 FiO2 4 Sodium Potassium Chloride Carbon Dioxide Anion Gap BUN Creatinine Est GFR ( Amer) Glucose Calcium Total Bilirubin AST Alkaline Phosphatase Total Protein Albumin Urine Color Urine Appearance Urine pH Ur Specific [place] Urine Protein Urine Glucose (UA) Urine Ketones Urine Blood Urine Nitrite Ur Leukocyte Esterase Urine WBC (Auto) Urine RBC (Auto) 06/17/19 06/17/19 06/17/19 11:25 11:25 11:25 Creatine Kinase < 20 L Troponin I 0.019 NT-Pro-B Natriuret Pep [id number] H Impressions: Abdomen/Pelvis CT 06/17/19 11:29 IMPRESSION: Small amount of free fluid improved from prior exam. Bibasilar airspace disease is again noted mildly improved from prior exam as well. Other findings as described. Chest X-Ray 06/17/19 11:29 IMPRESSION: Findings are most consistent with pulmonary edema. Infectious or inflammatory process is thought be less likely. Head CT 06/17/19 11:29 IMPRESSION: MILD CHRONIC CHANGES OF ATROPHY AND MICROVASCULAR ISCHEMIA. NO ACUTE PROCESS. EVIDENCE OF ACUTE STROKE: NO. Assessment and Plan - Diagnosis (1) GI bleed Qualifiers: GI bleed type/associated pathology: unspecified gastrointestinal hemorrhage type Qualified Code(s): K92.2 - Gastrointestinal hemorrhage, unspecified Is this a current diagnosis for this admission?: Yes Plan: Hemoccult positive No active bleeding observed on admission Hemoglobin 10 on admission which is higher than baseline, trend hemoglobin and transfuse for values less than 7 Monitor and offer conservative measures unless actively bleeding her hemoglobin acutely dropping Needs GI outpatient follow-up after discharge (2) Acute exacerbation of congestive heart failure Qualifiers: Heart failure type: unspecified Qualified Code(s): I50.9 - Heart failure, unspecified Is this a current diagnosis for this admission?: Yes Plan: Acute on chronic combined systolic and diastolic CHF exacerbation Chest x-ray shows volume overload BNP markedly elevated over 15,000 IV Bumex 1 mg twice daily Supplemental oxygen to maintain saturation 89 to 92% Previous echocardiogram reviewed which showed EF 25% and grade 1 diastolic dysfunction with severe global hypokinesis and left ventricle (3) Acute kidney injury superimposed on chronic kidney disease Is this a current diagnosis for this admission?: Yes Plan: Suspect cardiorenal syndrome IV Bumex for diuresis as above Monitor I/O Nephrology consulted by ED, patient may need dialysis which he has needed in the past Trend BMP (4) Acute metabolic encephalopathy Is this a current diagnosis for this admission?: Yes Plan: Superimposed on severe dementia and longstanding brain damage from substance abuse Also takes multiple sedative medications including gabapentin and Seroquel and Flexeril; reduced this regimen Avoid narcotics and additional sedatives (5) Acute respiratory failure with hypoxia Is this a current diagnosis for this admission?: Yes Plan: Diuresis as above Bronchial hygiene (6) COPD (chronic obstructive pulmonary disease) Qualifiers: COPD type: COPD with acute exacerbation Qualified Code(s): J44.1 - Chronic obstructive pulmonary disease with (acute) exacerbation Is this a current diagnosis for this admission?: Yes Plan: Does not appear to be in acute exacerbation, no wheezing on exam Continue home medications (7) Metabolic encephalopathy Is this a current diagnosis for this admission?: Yes Plan: As above - Time Time Spent with patient: 35 or more minutes Medications reviewed and adjusted accordingly: Yes - Inpatient Certification Based on my medical assessment, after consideration of the patient's comorbidities, presenting symptoms, or acuity I expect that the services needed warrant INPATIENT care.: Yes I certify that my determination is in accordance with my understanding of Medicare's requirements for reasonable and necessary INPATIENT services [42 CFR 412.3e].: Yes Medical Necessity: Significant Comorbidiites Make Outpatient Treatment Too Risky, Need Close Monitoring Due to Risk of Patient Decompensation, Risk of Complication if Not Cared For in Hospital
--- NOTE | 2019-06-17 18:49 | ADVANCED CARE ---
- Diagnosis (1) GI bleed Diagnosis Current: Yes (2) Acute exacerbation of congestive heart failure Diagnosis Current: Yes (3) Acute kidney injury superimposed on chronic kidney disease Diagnosis Current: Yes (4) Acute metabolic encephalopathy Diagnosis Current: Yes (5) Acute respiratory failure with hypoxia Diagnosis Current: Yes (6) COPD (chronic obstructive pulmonary disease) Diagnosis Current: Yes (7) Metabolic encephalopathy Diagnosis Current: Yes Attendance: Patient Resuscitation Status: Full Code Discussion: All aspects of code status discussed with patient/POA including cardioversion, chest compressions, and intubation and the patient/POA indicated they wish to be full code. MPOA is designated as: None, patient does not have anyone he wishes to be his medical power of workers compensation defense attorney May be beneficial to explore guardianship Time Spent: 17 minutes
[2019-06-17] MEDS ORDERED: DEXTROSE 50%-WATER SYRINGE 12.5 GM/25 ML DOSE IV PRN (19:00)
[2019-06-17] MEDS ORDERED: DEXTROSE 40% GEL 15 GM TUBE X 2 PO PRN (19:00)
[2019-06-17] MEDS ORDERED: DEXTROSE 40% GEL 15 GM TUBE PO PRN (19:00)
[2019-06-17] MEDS ORDERED: DEXTROSE 50%-WATER SYRINGE 25 GM/50 ML DOSE IV PRN (19:00)
[2019-06-17] MEDS ORDERED: GLUCAGON,HUMAN RECOMB 1 MG INJ IM PRN (19:00)
--- NOTE | 2019-06-17 21:55 | EKG REPORT ---
SEVERITY:- ABNORMAL ECG - SINUS RHYTHM [Remains] MULTIPLE ATRIAL PREMATURE COMPLEXES [Now Present] PROBABLE LEFT ATRIAL ABNORMALITY [Insig. Chg.] LEFT ANTERIOR FASCICULAR BLOCK [Insig. Chg.] LEFT VENTRICULAR HYPERTROPHY [Remains] NO SIGNIFICANT CHANGE [Now Absent] CONSIDER ANTERIOR INFARCT [Now Absent] ATRIAL PREMATURE COMPLEX : Confirmed by: Radha Lara MD 17-Jun-2019 21:54:56
[2019-06-17] MEDS ORDERED: HEPARIN SOD (PORCINE) 5,000 UNIT/ML 1 ML VIAL SUBCUT SCH (22:00)
[2019-06-17 22:02] LABS: ANION GAP 9 (5-19); BLOOD UREA NITROGEN 71 mg/dL (7-20); CARBON DIOXIDE 31 mmol/L (22-30); CHLORIDE 98 mmol/L (98-107); GLUCOSE 107 mg/dL (75-110); POTASSIUM 4.4 mmol/L (3.6-5.0)
[2019-06-17] MEDS: SUCRALFATE 1 GM TABLET PO SCH (22:14)
[2019-06-17] MEDS: QUETIAPINE FUMARATE 100 MG TABLET PO SCH (22:16)
[2019-06-17] MEDS: INSULIN LISPRO 100 UNIT/ML 3 ML VIAL SUBCUT SCH (22:26)
[2019-06-17] MEDS: METOPROLOL SUCCINATE 25 MG TAB.SR.24H PO SCH (22:27)
[2019-06-18 06:03] LABS: ABSOLUTE BASOPHILS # (AUTO) 0.1 10^3/uL (0.0-0.2); ABSOLUTE EOSINOPHILS # (AUTO) 0.3 10^3/uL (0.0-0.6); ABSOLUTE LYMPHOCYTES (AUTO) 1.1 10^3/uL (0.5-4.7); ABSOLUTE NEUT (AUTO) 7.4 10^3/uL (1.7-8.2); BASOPHILS % (AUTO) 1.1 % (0-2); EOSINOPHILS % (AUTO) 3.1 % (0-6); HEMATOCRIT 27.6 % (37.9-51.0); HEMOGLOBIN 9.1 g/dL (13.5-17.0); LYMPHOCYTES % (AUTO) 11.2 % (13-45); MEAN CORPUSCULAR HEMOGLOBIN 26.7 pg (27.0-33.4); MEAN CORPUSCULAR HGB CONC 32.8 g/dL (32.0-36.0); MEAN CORPUSCULAR VOLUME 82 fl (80-97); MONOCYTES % (AUTO) 10.1 % (3-13); PLATELET COUNT 336 10^3/uL (150-450); RED BLOOD COUNT 3.39 10^6/uL (4.35-5.55); RED CELL DISTRIBUTION WIDTH 24.1 % (11.5-14.0); SEGMENTED NEUTROPHILS % (AUTO) 74.5 % (42-78); TOTAL CELLS COUNTED % (AUTO) 100 %
[2019-06-18 06:19] LABS: PHOSPHORUS 5.4 mg/dL (2.5-4.5)
[2019-06-18 06:30] LABS: ANISOCYTOSIS 3+; POIKILOCYTOSIS SLIGHT; TARGET CELLS SLIGHT
[2019-06-18 06:31] LABS: PLATELET COMMENT ADEQUATE; POLYCHROMASIA SLIGHT
[2019-06-18] MEDS: INSULIN LISPRO 100 UNIT/ML 3 ML VIAL SUBCUT SCH ×4 (07:58→22:36)
[2019-06-18] MEDS: SUCRALFATE 1 GM TABLET PO SCH ×4 (08:09→22:35)
[2019-06-18] MEDS: PANTOPRAZOLE SODIUM 20 MG TABLET.DR PO SCH (08:09)
[2019-06-18 09:15] LABS: ANION GAP 9 (5-19); BLOOD UREA NITROGEN 66 mg/dL (7-20); CARBON DIOXIDE 31 mmol/L (22-30); CHLORIDE 99 mmol/L (98-107); GLUCOSE 95 mg/dL (75-110); POTASSIUM 4.2 mmol/L (3.6-5.0)
[2019-06-18] MEDS: METOPROLOL SUCCINATE 25 MG TAB.SR.24H PO SCH ×2 (09:53→22:39)
[2019-06-18] MEDS: VITAMIN B COMPLEX TABLET PO SCH (09:53)
[2019-06-18] MEDS: NITROGLYCERIN 15 MG (0.6 MG/1 HR) PATCH.TD24 TD SCH (09:53)
[2019-06-18] MEDS: MULTIVITAMIN TABLET PO SCH (09:53)
[2019-06-18] MEDS: THIAMINE HCL 100 MG TABLET PO SCH (09:53)
[2019-06-18] MEDS: BUMETANIDE INJ/PF 1 MG/4 ML SDV IV SCH ×2 (09:53→17:41)
[2019-06-18] MEDS: MINERAL OIL/PETROLATUM,WHITE CREAM 114 GM TP SCH (09:54)
[2019-06-18] MEDS: FLUTICASONE/UMECLIDIN/VILANTER 100-62.5-25 MCG/DOSE IH SCH (09:54)
[2019-06-18] MEDS ORDERED: (PENDING PHARMACY ID) (Multivitamin/Iron/Folic Acid [Centrum Adults Tablet] 1 EACH) PO SCH (10:00)
[2019-06-18 11:19] LABS: ARTERIAL BLOOD H2CO3 1.31 mmol/L (1.05-1.35); ARTERIAL BLOOD HCO3 31.3 mmol/L (20-24); ARTERIAL BLOOD O2 SATURATION 88.9 % (94-98); ARTERIAL BLOOD PCO2 43.5 mmHg (35-45); ARTERIAL BLOOD PH 7.48 (7.35-7.45); ARTERIAL BLOOD TOTAL CO2 32.6 mmol/L (23-27)
[2019-06-18 11:44] LABS: ARTERIAL BLOOD FIO2 4.54
--- NOTE | 2019-06-18 12:10 | PDOC CONSULTATION ---
Consultation Consult Date: 06/18/19 Provider Consulted: Cyndi MONGE Consult reason:: ERNESTINE on CKD 4 in the background of CHF. History of Present Illness Admission Date/PCP: 06/17/19 15:07 SB NELSON DO History of Present Illness: JUJU ANDRADE is a 58 year old male was just recently discharged on the fourth of this month with a diagnosis of acute on chronic kidney disease and was on transi ent dialysis while in the hospital after being admitted with fluid overload and right foot ulcer which apparently responded to IV antibiotics. At that time diagnosis of acute tubular necrosis was made and he was hopefully discharged back to group home after he had seemingly recovered quite a bit of his renal functions and discharge creatinine of around 2+ and we wanted to avoid dialysis given his severe comorbid conditions. Patient has got underlying ischemic cardiomyopathy with an ejection fraction of around 25%. The patient was send to the ER yesterday after 1 day history of progressive confusion, rectal bleeding, shortness of breath, and chronic stasis dermatitis of his feet and has become painful, noted by the nurses at his nursing facility, prompted EMS transport to ED for further evaluation. Patient is an extremely poor historian due to severe dementia and chronic brain damage from reported long-term substance abuse. Evaluations in the ER yesterday revealed that the patient was in congestive heart failure. Conservative measures were instituted. Patient is now on the [facility] floor and when I see him he is on a nasal cannula with 5 L of oxygen. He is able to speak but has to stop talking in between but I am unsure of his baseline condition given that he has got dementia and chronic encephalopathy most likely from underlying chronic hypoxemia.His admission creatinine was 3.6 with a hemoglobin of 10.Labs and medications were reviewed from today. His creatinine today is 3.1. A repeat ABG was asked that shows he is hypoxemic in spite of being on 5 L of oxygen via nasal cannula. I just ordered a chest x- ray. Past Medical History Cardiac Medical History: Reports: CHF-Systolic - Recent LVEF was 25%. Global dyskinesis, Coronary Artery Disease, Hyperlipidemia Pulmonary Medical History: Reports: Chronic Obstructive Pulmonary Disease (COPD), Respiratory Failure Renal/ Medical History: Reports: Chronic Kidney Disease Stage IV GI Medical History: Reports: Gastroesophageal Reflux Disease Musculoskeltal Medical History: Reports: Arthritis Psychiatric Medical History: Reports: Bipolar Disorder Past Surgical History Past Surgical History: Reports: Coronary Artery Bypass Graft, Valve Replacement Social History Lives with: Jail Smoking Status: Current Every Day Smoker Frequency of Alcohol Use: None Hx Recreational Drug Use: Yes Hx Prescription Drug Abuse: No - Advance Directive Resuscitation Status: Full Code Family History Parental Family History Reviewed: Yes - Negative for ESRD Children Family History Reviewed: No Sibling(s) Family History Reviewed.: No Medication/Allergy Home Medications: Albuterol Sulfate [Ventolin Hfa 8 gm Mdi] 2 puff IH Q6HP PRN 04/30/19 Thiamine HCl [Thiamine 100 mg Tablet] 100 mg PO DAILY 04/30/19 Multivitamin/Iron/Folic Acid [Centrum Adults Tablet] 1 each PO DAILY 05/12/19 Vitamin B Complex/Folic Acid [B-Complex Tablet] 1 tab PO DAILY 05/12/19 Fluticasone/Umeclidin/Vilanter [Trelegy 100-62.5-25 Mcg Ellipta 14 Dose/Dpi] 1 inh IH DAILY inhaler 06/12/19 Furosemide [Lasix 40 mg Tablet] 40 mg PO TID tablet 06/12/19 Gabapentin [Neurontin 300 mg Capsule] 300 mg PO DAILY capsule 06/12/19 Metoprolol Succinate [Toprol Xl 25 mg Tab.sr] 25 mg PO Q12 tab.sr.24h 06/12/19 Mineral Oil/Petrolatum,White [Eucerin Cream 114 gm] 1 applic TP DAILY jar 06/12/19 Nitroglycerin [Nitro-Dur 15 mg (0.6 mg/1 Hr) Transderm Patch] 1 each TD DAILY patch.td24 06/12/19 Ondansetron [Zofran Odt 4 mg Tablet] 4 mg PO Q6HP PRN 7 Days #30 tab.rapdis 06/12/19 Pantoprazole Sodium [Protonix [address] Tablet] 20 mg PO QAM 30 Days #30 tablet.dr 06/12/19 Quetiapine Fumarate [Seroquel 100 mg Tablet] 150 mg PO QHS tablet 06/12/19 Sucralfate [Carafate 1 gm Tablet] 1 gm PO ACHS tablet 06/12/19 Valsartan [Diovan 40 mg Tablet] 40 mg PO DAILY tablet 06/12/19 Acetaminophen [Tylenol 325 mg Tablet] 650 mg PO Q6HP PRN 06/17/19 Baclofen [Baclofen 10 mg Tablet] 10 mg PO TIDP PRN 06/17/19 Allergies/Adverse Reactions: risperidone [From Risperdal] Allergy (Verified 06/17/19 11:38) trazodone Allergy (Verified 06/17/19 11:38) Review of Systems ROS unobtainable: Due to mental status Constitutional: PRESENT: fatigue, weakness. ABSENT: anorexia, chills, fever(s), headache(s), night sweats Cardiovascular: PRESENT: dyspnea on exertion, edema. ABSENT: chest pain, orthropnea, palpitations Respiratory: PRESENT: dyspnea. ABSENT: cough, hemoptysis Gastrointestinal: PRESENT: heartburn. ABSENT: abdominal pain, diarrhea, dysphagia Genitourinary: ABSENT: dysuria, hematuria Musculoskeletal: ABSENT: deformity, joint swelling Integumentary: PRESENT: rash - Both lower extremities. ABSENT: lesions, pruritus Physical Exam Vital Signs: Temp Pulse Resp BP Pulse Ox 97.5 F 62 24 H 131/62 H 91 L 06/18/19 07:54 06/18/19 07:54 06/18/19 07:54 06/18/19 07:54 06/18/19 07:54 Intake & Output 06/17/19 06/18/19 06/19/19 06:59 06:59 06:59 Weight 101.8 kg General appearance: PRESENT: mild distress Eye exam: PRESENT: EOMI, PERRLA. ABSENT: scleral icterus Respiratory exam: PRESENT: clear to auscultation torsten, crackles, decreased breath sounds Cardiovascular exam: PRESENT: +S1, +S2 GI/Abdominal exam: PRESENT: normal bowel sounds, soft. ABSENT: organomegaly, tenderness Extremities exam: PRESENT: pedal edema - Trace-1+.Skin discoloration so history of chronic venous stasis and dermatitis Neurological exam: PRESENT: alert, awake, oriented to person Psychiatric exam: PRESENT: anxious Skin exam: PRESENT: rash - Both lower extremities are venous stasis along with dermatitis. ABSENT: cyanosis, erythema, mottled Results Laboratory Results: 06/18/19 05:21 06/18/19 05:21 06/17/19 06/17/19 06/17/19 11:25 11:25 14:00 WBC 12.0 H RBC 3.77 L Hgb 10.0 L Hct 30.9 L MCV 82 MCH 26.4 L MCHC 32.2 RDW 24.8 H Plt Count 381 Seg Neutrophils % 79.4 H Carbonic Acid HCO3/H2CO3 Ratio ABG pH ABG pCO2 ABG pO2 ABG HCO3 ABG O2 Saturation ABG Base Excess FiO2 Sodium 137.9 Potassium 5.0 Chloride 97 L Carbon Dioxide 31 H Anion Gap 10 BUN 69 H Creatinine 3.64 H Est GFR ( Amer) 21 L Glucose 107 Calcium 9.3 Phosphorus Magnesium Total Bilirubin 1.4 H AST 21 Alkaline Phosphatase 273 H Ammonia Total Protein 7.2 Albumin 3.4 L TSH Urine Color YELLOW Urine Appearance CLEAR Urine pH 8.0 Ur Specific [place] 1.006 Urine Protein NEGATIVE Urine Glucose (UA) NEGATIVE Urine Ketones NEGATIVE Urine Blood NEGATIVE Urine Nitrite NEGATIVE Ur Leukocyte Esterase NEGATIVE Urine WBC (Auto) 0 Urine RBC (Auto) 0 06/17/19 06/17/19 06/17/19 14:57 21:17 21:17 WBC RBC Hgb Hct MCV MCH MCHC RDW Plt Count Seg Neutrophils % Carbonic Acid 1.24 HCO3/H2CO3 Ratio 22:1 ABG pH 7.45 ABG pCO2 41.2 ABG pO2 87.0 ABG HCO3 28.0 H ABG O2 Saturation 97.0 ABG Base Excess 3.7 FiO2 4 Sodium 137.7 Potassium 4.4 Chloride 98 Carbon Dioxide 31 H Anion Gap 9 BUN 71 H Creatinine 3.14 H Est GFR ( Amer) 25 L Glucose 107 Calcium 9.0 Phosphorus Magnesium Total Bilirubin AST Alkaline Phosphatase Ammonia < 8.7 L Total Protein Albumin TSH Urine Color Urine Appearance Urine pH Ur Specific [place] Urine Protein Urine Glucose (UA) Urine Ketones Urine Blood Urine Nitrite Ur Leukocyte Esterase Urine WBC (Auto) Urine RBC (Auto) 06/18/19 06/18/19 06/18/19 05:21 05:21 05:21 WBC 10.0 RBC 3.39 L Hgb 9.1 L Hct 27.6 L MCV 82 MCH 26.7 L MCHC 32.8 RDW 24.1 H Plt Count 336 Seg Neutrophils % 74.5 Carbonic Acid HCO3/H2CO3 Ratio ABG pH ABG pCO2 ABG pO2 ABG HCO3 ABG O2 Saturation ABG Base Excess FiO2 Sodium Potassium Chloride Carbon Dioxide Anion Gap BUN Creatinine Est GFR ( Amer) Glucose Calcium Phosphorus 5.4 H Magnesium 2.3 Total Bilirubin AST Alkaline Phosphatase Ammonia Total Protein Albumin TSH 8.66 H Urine Color Urine Appearance Urine pH Ur Specific [place] Urine Protein Urine Glucose (UA) Urine Ketones Urine Blood Urine Nitrite Ur Leukocyte Esterase Urine WBC (Auto) Urine RBC (Auto) 06/18/19 06/18/19 05:21 11:05 WBC RBC Hgb Hct MCV MCH MCHC RDW Plt Count Seg Neutrophils % Carbonic Acid 1.31 HCO3/H2CO3 Ratio 23:1 ABG pH 7.48 H ABG pCO2 43.5 ABG pO2 52.0 L ABG HCO3 31.3 H ABG O2 Saturation 88.9 L ABG Base Excess 7.0 FiO2 ROOM AIR Sodium 138.5 Potassium 4.2 Chloride 99 Carbon Dioxide 31 H Anion Gap 9 BUN 66 H Creatinine 3.16 H Est GFR ( Amer) 24 L Glucose 95 Calcium 9.0 Phosphorus Magnesium Total Bilirubin AST Alkaline Phosphatase Ammonia Total Protein Albumin TSH Urine Color Urine Appearance Urine pH Ur Specific [place] Urine Protein Urine Glucose (UA) Urine Ketones Urine Blood Urine Nitrite Ur Leukocyte Esterase Urine WBC (Auto) Urine RBC (Auto) 06/17/19 06/17/19 06/17/19 11:25 11:25 11:25 Creatine Kinase < 20 L Troponin I 0.019 NT-Pro-B Natriuret Pep [id number] H Impressions: Abdomen/Pelvis CT 06/17/19 11:29 IMPRESSION: Small amount of free fluid improved from prior exam. Bibasilar airspace disease is again noted mildly improved from prior exam as well. Other findings as described. Chest X-Ray 06/17/19 11:29 IMPRESSION: Findings are most consistent with pulmonary edema. Infectious or inflammatory process is thought be less likely. Head CT 06/17/19 11:29 IMPRESSION: MILD CHRONIC CHANGES OF ATROPHY AND MICROVASCULAR ISCHEMIA. NO ACUTE PROCESS. EVIDENCE OF ACUTE STROKE: NO. Assessment & Plan - Diagnosis (1) Acute exacerbation of congestive heart failure Qualifiers: Heart failure type: unspecified Qualified Code(s): I50.9 - Heart failure, unspecified Is this a current diagnosis for this admission?: Yes Plan: Underlying severe ischemic cardiomyopathy/CHF. Will administer another stat dose of IV Bumex. Get a chest x-ray. Further determination for treatment will be based on the above including possibility of him having to be back on dialysis (2) Acute kidney injury superimposed on chronic kidney disease Is this a current diagnosis for this admission?: Yes Plan: Secondary to acute on chronic congestive heart failure/prerenal. Will again wait to see if he can respond to conservative measures as it looks like if he has to go back on dialysis this time again he will had to be on deemed ESRD given his precarious nature of his congestive heart failure/Residual LV function and requiring admission with acute worsening of his chronic heart failure which then decompensates his precarious renal function pushing him into ESRD status and the need for dialysis. Fortunately he has a right IJ PermCath which can be used. Will determine if he needs dialysis today based on his x-ray and his response to IV Bumex. If not he will be watched on a daily basis and the determination for starting dialysis will be made based on that. (3) Acute respiratory failure with hypoxia Is this a current diagnosis for this admission?: Yes Plan: Congestive heart failure. Discussed with the treating nurse. Will order chest x-ray. Advised to discuss with hospitalist to see if he would need BiPAP support. (4) Anemia Plan: Hemoglobin yesterday was 10 which is the same as the time of discharge last week. Will reevaluate anemia and see if he needs iron infusions or whether he needs to be put on erythropoietin. (5) Chronic anoxic encephalopathy Plan: I believe he has chronic anoxic encephalopathy given his precarious cardiac function. See how he responds to conservative measures and if not we will put him on chronic dialysis and see the response. (6) Bipolar disorder Plan: Status quo on multiple medications. (7) Stasis dermatitis of both legs Plan: Chronic
[2019-06-18] MEDS ORDERED: BUMETANIDE INJ/PF 1 MG/4 ML SDV IV ONE (12:30)
--- NOTE | 2019-06-18 13:31 | PDOC PROGRESS REPORT ---
Subjective Progress Note for:: 06/18/19 Subjective:: Patient seems to be more awake and alert today. He was wearing nasal cannula during our encounter and did not appear to be struggling to breathe. Lungs are still quite wet sounding but a bit improved from yesterday. Per nursing, patient urinated profusely overnight soaking many diapers but this was not quantified specifically. He now has Brody in place for strict I/O and nephrology is seeing him. 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 He has no new complaints today other than generalized weakness and shortness of breath. We need to titrate his oxygen to a saturation of 89 to 94% given he has COPD. Reason For Visit: ACUTE CHF EXACERBATION, ACUTE HYPOXEMIC RESP Physical Exam Vital Signs: Temp Pulse Resp BP Pulse Ox 98.8 F 34 L 20 151/54 H 91 L 06/18/19 11:41 06/18/19 11:41 06/18/19 11:41 06/18/19 11:41 06/18/19 11:41 Intake & Output 06/17/19 06/18/19 06/19/19 06:59 06:59 06:59 Intake Total 120 Output Total 625 Balance -505 Weight 101.8 kg General appearance: PRESENT: no acute distress, well-developed, well-nourished Head exam: PRESENT: atraumatic, normocephalic Eye exam: PRESENT: conjunctiva pink Mouth exam: PRESENT: moist Respiratory exam: PRESENT: crackles - Wet sounding, unlabored. ABSENT: accessory muscle use, rales, rhonchi, tachypnea, wheezes Cardiovascular exam: PRESENT: RRR. ABSENT: diastolic murmur, rubs, systolic murmur GI/Abdominal exam: PRESENT: normal bowel sounds, soft. ABSENT: distended, guarding, mass, organolmegaly, rebound, tenderness Rectal exam: PRESENT: deferred Neurological exam: PRESENT: alert, altered - Chronic encephalopathy, awake, oriented to person Psychiatric exam: PRESENT: flat affect, normal mood Skin exam: PRESENT: dry, intact, warm Results Laboratory Results: 06/18/19 05:21 06/18/19 05:21 06/17/19 06/17/19 06/17/19 14:00 14:57 21:17 WBC RBC Hgb Hct MCV MCH MCHC RDW Plt Count Seg Neutrophils % Carbonic Acid 1.24 HCO3/H2CO3 Ratio 22:1 ABG pH 7.45 ABG pCO2 41.2 ABG pO2 87.0 ABG HCO3 28.0 H ABG O2 Saturation 97.0 ABG Base Excess 3.7 FiO2 4 Sodium Potassium Chloride Carbon Dioxide Anion Gap BUN Creatinine Est GFR ( Amer) Glucose Calcium Phosphorus Magnesium Ammonia < 8.7 L TSH Urine Color YELLOW Urine Appearance CLEAR Urine pH 8.0 Ur Specific [place] 1.006 Urine Protein NEGATIVE Urine Glucose (UA) NEGATIVE Urine Ketones NEGATIVE Urine Blood NEGATIVE Urine Nitrite NEGATIVE Ur Leukocyte Esterase NEGATIVE Urine WBC (Auto) 0 Urine RBC (Auto) 0 06/17/19 06/18/19 06/18/19 21:17 05:21 05:21 WBC 10.0 RBC 3.39 L Hgb 9.1 L Hct 27.6 L MCV 82 MCH 26.7 L MCHC 32.8 RDW 24.1 H Plt Count 336 Seg Neutrophils % 74.5 Carbonic Acid HCO3/H2CO3 Ratio ABG pH ABG pCO2 ABG pO2 ABG HCO3 ABG O2 Saturation ABG Base Excess FiO2 Sodium 137.7 Potassium 4.4 Chloride 98 Carbon Dioxide 31 H Anion Gap 9 BUN 71 H Creatinine 3.14 H Est GFR ( Amer) 25 L Glucose 107 Calcium 9.0 Phosphorus 5.4 H Magnesium 2.3 Ammonia TSH Urine Color Urine Appearance Urine pH Ur Specific [place] Urine Protein Urine Glucose (UA) Urine Ketones Urine Blood Urine Nitrite Ur Leukocyte Esterase Urine WBC (Auto) Urine RBC (Auto) 06/18/19 06/18/19 06/18/19 05:21 05:21 11:05 WBC RBC Hgb Hct MCV MCH MCHC RDW Plt Count Seg Neutrophils % Carbonic Acid 1.31 HCO3/H2CO3 Ratio 23:1 ABG pH 7.48 H ABG pCO2 43.5 ABG pO2 52.0 L ABG HCO3 31.3 H ABG O2 Saturation 88.9 L ABG Base Excess 7.0 FiO2 4.54 Sodium 138.5 Potassium 4.2 Chloride 99 Carbon Dioxide 31 H Anion Gap 9 BUN 66 H Creatinine 3.16 H Est GFR ( Amer) 24 L Glucose 95 Calcium 9.0 Phosphorus Magnesium Ammonia TSH 8.66 H Urine Color Urine Appearance Urine pH Ur Specific [place] Urine Protein Urine Glucose (UA) Urine Ketones Urine Blood Urine Nitrite Ur Leukocyte Esterase Urine WBC (Auto) Urine RBC (Auto) 06/17/19 06/17/19 06/17/19 11:25 11:25 11:25 Creatine Kinase < 20 L Troponin I 0.019 NT-Pro-B Natriuret Pep [id number] H Impressions: Abdomen/Pelvis CT 06/17/19 11:29 IMPRESSION: Small amount of free fluid improved from prior exam. Bibasilar airspace disease is again noted mildly improved from prior exam as well. Other findings as described. Chest X-Ray 06/17/19 11:29 IMPRESSION: Findings are most consistent with pulmonary edema. Infectious or inflammatory process is thought be less likely. Head CT 06/17/19 11:29 IMPRESSION: MILD CHRONIC CHANGES OF ATROPHY AND MICROVASCULAR ISCHEMIA. NO ACUTE PROCESS. EVIDENCE OF ACUTE STROKE: NO. Assessment and Plan - Diagnosis (1) GI bleed Qualifiers: GI bleed type/associated pathology: unspecified gastrointestinal hemorrhage type Qualified Code(s): K92.2 - Gastrointestinal hemorrhage, unspecified Is this a current diagnosis for this admission?: Yes Plan: Hemoccult positive No active bleeding observed on admission Hemoglobin 10 on admission which is higher than baseline, trend hemoglobin and transfuse for values less than 7 Monitor and offer conservative measures unless actively bleeding or hemoglobin acutely dropping Baseline hemoglobin per records appears to be approximately 9.5-10 Needs GI outpatient follow-up after discharge (2) Acute exacerbation of congestive heart failure Qualifiers: Heart failure type: unspecified Qualified Code(s): I50.9 - Heart failure, unspecified Is this a current diagnosis for this admission?: Yes Plan: Acute on chronic combined systolic and diastolic CHF exacerbation Chest x-ray shows volume overload BNP markedly elevated over 15,000 IV Bumex 1 mg twice daily, additional dose added by nephrology as needed Supplemental oxygen to maintain saturation 89 to 92% Previous echocardiogram reviewed which showed EF 25% and grade 1 diastolic dysfunction with severe global hypokinesis and left ventricle Reported large volume diuresis though this was not quantified on admission; Brody placed for strict I/O (3) Acute kidney injury superimposed on chronic kidney disease Is this a current diagnosis for this admission?: Yes Plan: Suspect cardiorenal syndrome, improving IV Bumex for diuresis as above Monitor I/O Nephrology consulted by ED, patient may need dialysis which he has needed in the past Trend BMP (4) Acute metabolic encephalopathy Is this a current diagnosis for this admission?: Yes (5) Acute respiratory failure with hypoxia Is this a current diagnosis for this admission?: Yes (6) COPD (chronic obstructive pulmonary disease) Qualifiers: COPD type: chronic bronchitis Chronic bronchitis type: unspecified Qualified Code(s): J42 - Unspecified chronic bronchitis Is this a current diagnosis for this admission?: Yes Plan: May possibly be developing acute exacerbation, no wheezing on exam but having lower oxygen saturation, uses 3 L nasal cannula at baseline reportedly Scheduled Xopenex/ipratropium nebulizer treatments every 4 hours Continue home medications (7) Metabolic encephalopathy Is this a current diagnosis for this admission?: Yes - Time Time Spent with patient: 35 or more minutes Medications reviewed and adjusted accordingly: Yes - Inpatient Certification Medical Necessity: Significant Comorbidiites Make Outpatient Treatment Too Risky, Need Close Monitoring Due to Risk of Patient Decompensation, Risk of Co mplication if Not Cared For in Hospital
--- NOTE | 2019-06-18 13:35 | RADIOLOGY REPORT (SQ) ---
EXAM DESCRIPTION: CHEST SINGLE VIEW IMAGES COMPLETED DATE/TIME: 06/18/2019 1:27 pm REASON FOR STUDY: dyspnea COMPARISON: 06/17/2019 EXAM PARAMETERS: NUMBER OF VIEWS: One view. TECHNIQUE: Single frontal radiographic view of the chest acquired. RADIATION DOSE: NA LIMITATIONS: None. FINDINGS: LUNGS AND PLEURA: Persistent diffuse bilateral alveolar infiltrates most marked in the luis manuel g periphery. No significant change from yesterday. MEDIASTINUM AND HILAR STRUCTURES: No masses. Contour normal. HEART AND VASCULAR STRUCTURES: Stable in appearance. BONES: No acute findings. HARDWARE: None in the chest. OTHER: No other significant finding. IMPRESSION: No significant interval change in the chest with diffuse bilateral alveolar infiltrates. TECHNICAL DOCUMENTATION: JOB ID: [id number] 2010 [employer]- All Rights Reserved Reading location - IP/workstation name: [email or web address]
[2019-06-18 14:58] LABS: ARTERIAL BLOOD BASE EXCESS 4.9 mmol/L; ARTERIAL BLOOD H2CO3 1.38 mmol/L (1.05-1.35); ARTERIAL BLOOD HCO3 29.9 mmol/L (20-24); ARTERIAL BLOOD O2 SATURATION 92.7 % (94-98); ARTERIAL BLOOD PH 7.43 (7.35-7.45); ARTERIAL BLOOD PO2 63.6 mmHg (80-100); ARTERIAL BLOOD TOTAL CO2 31.3 mmol/L (23-27)
[2019-06-18 15:03] LABS: ARTERIAL BLOOD FIO2 6
[2019-06-18] MEDS: IPRATROPIUM BROMIDE 0.02% NEB 0.5 MG/2.5 ML AMPUL NEB SCH ×2 (15:41→20:04)
[2019-06-18] MEDS: LEVALBUTEROL HCL NEB 1.25 MG/3 ML AMPUL NEB SCH ×2 (15:41→20:04)
[2019-06-18] MEDS: QUETIAPINE FUMARATE 100 MG TABLET PO SCH (22:34)
[2019-06-19] MEDS: LEVALBUTEROL HCL NEB 1.25 MG/3 ML AMPUL NEB SCH ×6 (00:35→19:50)
[2019-06-19] MEDS: IPRATROPIUM BROMIDE 0.02% NEB 0.5 MG/2.5 ML AMPUL NEB SCH ×6 (00:35→19:50)
[2019-06-19] MEDS: BACLOFEN 10 MG TABLET PO PRN (05:59)
[2019-06-19 06:01] LABS: HEMATOCRIT 25.6 % (37.9-51.0); HEMOGLOBIN 8.5 g/dL (13.5-17.0); MEAN CORPUSCULAR HEMOGLOBIN 27.2 pg (27.0-33.4); MEAN CORPUSCULAR HGB CONC 33.3 g/dL (32.0-36.0); MEAN CORPUSCULAR VOLUME 82 fl (80-97); PLATELET COUNT 288 10^3/uL (150-450); RED BLOOD COUNT 3.13 10^6/uL (4.35-5.55); WHITE BLOOD COUNT 8.7 10^3/uL (4.0-10.5)
[2019-06-19 06:28] LABS: ANION GAP 7 (5-19); BLOOD UREA NITROGEN 68 mg/dL (7-20); CALCIUM 8.5 mg/dL (8.4-10.2); CARBON DIOXIDE 31 mmol/L (22-30); CHLORIDE 97 mmol/L (98-107); GLUCOSE 93 mg/dL (75-110)
[2019-06-19] MEDS: INSULIN LISPRO 100 UNIT/ML 3 ML VIAL SUBCUT SCH ×4 (07:26→21:09)
[2019-06-19] MEDS: SUCRALFATE 1 GM TABLET PO SCH ×4 (07:57→21:09)
[2019-06-19] MEDS: PANTOPRAZOLE SODIUM 20 MG TABLET.DR PO SCH (07:57)
--- NOTE | 2019-06-19 08:19 | RADIOLOGY REPORT (SQ) ---
EXAM DESCRIPTION: CHEST SINGLE VIEW IMAGES COMPLETED DATE/TIME: 06/19/2019 7:56 am REASON FOR STUDY: chf COMPARISON: 06/18/2019. EXAM PARAMETERS: NUMBER OF VIEWS: One view. TECHNIQUE: Single frontal radiographic view of the chest acquired. RADIATION DOSE: NA LIMITATIONS: None. FINDINGS: LUNGS AND PLEURA: Bilateral airspace disease, relatively unchanged. No large pleural effu alba. MEDIASTINUM AND HILAR STRUCTURES: No masses. Contour normal. HEART AND VASCULAR STRUCTURES: Mild cardiomegaly. BONES: No acute findings. HARDWARE: Sternotomy wires. OTHER: No other significant finding. IMPRESSION: BILATERAL AIRSPACE DISEASE. MILD CARDIOMEGALY. NO SIGNIFICANT CHANGE. TECHNICAL DOCUMENTATION: JOB ID: [id number] 2010 [employer]- All Rights Reserved Reading location - IP/workstation name: [email or web address]
[2019-06-19] MEDS: MULTIVITAMIN TABLET PO SCH (10:32)
[2019-06-19] MEDS: METOPROLOL SUCCINATE 25 MG TAB.SR.24H PO SCH ×2 (10:32→21:08)
[2019-06-19] MEDS: VITAMIN B COMPLEX TABLET PO SCH (10:32)
[2019-06-19] MEDS: THIAMINE HCL 100 MG TABLET PO SCH (10:32)
[2019-06-19] MEDS: BUMETANIDE INJ/PF 1 MG/4 ML SDV IV SCH ×2 (10:32→17:10)
[2019-06-19] MEDS: NITROGLYCERIN 15 MG (0.6 MG/1 HR) PATCH.TD24 TD SCH (10:32)
[2019-06-19] MEDS: MINERAL OIL/PETROLATUM,WHITE CREAM 114 GM TP SCH (10:33)
[2019-06-19] MEDS: FLUTICASONE/UMECLIDIN/VILANTER 100-62.5-25 MCG/DOSE IH SCH (10:33)
[2019-06-19] MEDS ORDERED: ONDANSETRON HCL INJ/PF 4 MG/2 ML SDV IV PRN (11:00)
[2019-06-19] MEDS ORDERED: ONDANSETRON 4 MG TAB.RAPDIS PO PRN (11:00)
--- NOTE | 2019-06-19 12:21 | PDOC PROGRESS REPORT ---
Subjective Progress Note for:: 06/19/19 Subjective:: Patient look significantly improved today, much more alert, mentation probably back to his baseline or at least close to it. Lungs sound less congested, less wet. Reviewed chest x-ray which may be lagging behind his clinical improvement. He is having good urine output and his creatinine is improved. Hemoglobin slightly lower but no reported bleeding. Urine output was substantial at 1700 cc since yesterday with a net negative value of 1365, consistent with his clinical improvement. Discussed with nursing we need to continue weaning his oxygen as I do not believe he actually requires 5 L nasal cannula, probably needs 2 to 3 L nasal cannula which is his baseline. I discussed the case with nephrology today and they had some concerns about possible coronavirus, however I noted patient has no fever, normal white count, no cough, no reported sick contacts, no travel as he is a long-term resident in a nursing facility. At this time, feel like he is lower risk to actually have coronavirus and probably higher risk for us to test him and then give him coronavirus by putting him on the isolation floor with clearly positive patients. If he develops a fever and cough I certainly think we should test him for this. We will get a dry chest CT to gain some clarity on the quality and distribution of his chest x-ray infiltrates. Cannot give contrast to rule out PE and other etiologies due to his renal failure. Patient is complaining of painful feet and he certainly looks like he has some vascular disease there. We will check JASON. Patient has no new complaints today otherwise Reason For Visit: ACUTE CHF EXACERBATION, ACUTE HYPOXEMIC RESP Physical Exam Vital Signs: Temp Pulse Resp BP Pulse Ox 97.5 F 100 18 120/46 L 91 L 06/19/19 10:00 06/19/19 12:00 06/19/19 12:00 06/19/19 10:00 06/19/19 12:00 Intake & Output 06/18/19 06/19/19 06/20/19 06:59 06:59 06:59 Intake Total 360 Output Total 1725 Balance -1365 Weight 101.8 kg 101.8 kg General appearance: PRESENT: no acute distress, well-developed, well-nourished Head exam: PRESENT: atraumatic, normocephalic Eye exam: PRESENT: conjunctiva pink Mouth exam: PRESENT: moist Respiratory exam: PRESENT: crackles - Mild bilateral mostly at the bases, improving. ABSENT: accessory muscle use, rales, rhonchi, tachypnea, wheezes Cardiovascular exam: PRESENT: RRR. ABSENT: bradycardia, diastolic murmur, rubs, systolic murmur GI/Abdominal exam: PRESENT: normal bowel sounds, soft. ABSENT: distended, guarding, mass, organolmegaly, rebound, tenderness Rectal exam: PRESENT: deferred Extremities exam: PRESENT: pedal edema, tenderness, other - Weak pulses at dorsalis pedis bilateral Neurological exam: PRESENT: alert, awake, oriented to person, oriented to place Psychiatric exam: PRESENT: flat affect, normal mood Skin exam: PRESENT: dry, intact, mottled. ABSENT: normal color, warm Results Laboratory Results: 06/19/19 05:51 06/19/19 05:51 06/18/19 06/19/19 06/19/19 14:35 05:51 05:51 WBC 8.7 RBC 3.13 L Hgb 8.5 L Hct 25.6 L MCV 82 MCH 27.2 MCHC 33.3 RDW 24.0 H Plt Count 288 Carbonic Acid 1.38 H HCO3/H2CO3 Ratio 21:1 ABG pH 7.43 ABG pCO2 46.0 H ABG pO2 63.6 L ABG HCO3 29.9 H ABG O2 Saturation 92.7 L ABG Base Excess 4.9 FiO2 6 Sodium 135.4 L Potassium 4.0 Chloride 97 L Carbon Dioxide 31 H Anion Gap 7 BUN 68 H Creatinine 2.94 H Est GFR ( Amer) 27 L Glucose 93 Calcium 8.5 PTH Intact 06/19/19 05:51 WBC RBC Hgb Hct MCV MCH MCHC RDW Plt Count Carbonic Acid HCO3/H2CO3 Ratio ABG pH ABG pCO2 ABG pO2 ABG HCO3 ABG O2 Saturation ABG Base Excess FiO2 Sodium Potassium Chloride Carbon Dioxide Anion Gap BUN Creatinine Est GFR ( Amer) Glucose Calcium PTH Intact 166.2 H 06/17/19 13:25 Throat Throat Culture - Final NORMAL TAMIKO 06/17/19 06/17/19 06/17/19 11:25 11:25 11:25 Creatine Kinase < 20 L Troponin I 0.019 NT-Pro-B Natriuret Pep [id number] H Impressions: Abdomen/Pelvis CT 06/17/19 11:29 IMPRESSION: Small amount of free fluid improved from prior exam. Bibasilar airspace disease is again noted mildly improved from prior exam as well. Other findings as described. Head CT 06/17/19 11:29 IMPRESSION: MILD CHRONIC CHANGES OF ATROPHY AND MICROVASCULAR ISCHEMIA. NO ACUTE PROCESS. EVIDENCE OF ACUTE STROKE: NO. Chest X-Ray 06/19/19 07:00 IMPRESSION: BILATERAL AIRSPACE DISEASE. MILD CARDIOMEGALY. NO SIGNIFICANT CHANGE. Assessment and Plan - Diagnosis (1) GI bleed Qualifiers: GI bleed type/associated pathology: unspecified gastrointestinal hemorrhage type Qualified Code(s): K92.2 - Gastrointestinal hemorrhage, unspecified Is this a current diagnosis for this admission?: Yes Plan: Hemoccult positive No active bleeding observed on admission Hemoglobin 10 on admission which is higher than baseline, trend hemoglobin and transfuse for values less than 7 Monitor and offer conservative measures unless actively bleeding or hemoglobin acutely dropping Baseline hemoglobin per records appears to be approximately 9.5-10 Holding all anticoagulation Needs GI outpatient follow-up after discharge (2) Acute exacerbation of congestive heart failure Qualifiers: Heart failure type: unspecified Qualified Code(s): I50.9 - Heart failure, unspecified Is this a current diagnosis for this admission?: Yes Plan: Acute on chronic combined systolic and diastolic CHF exacerbation Chest x-ray shows volume overload BNP markedly elevated over 15,000 IV Bumex 1 mg twice daily, additional dose added by nephrology as needed Supplemental oxygen to maintain saturation 89 to 92% Previous echocardiogram reviewed which showed EF 25% and grade 1 diastolic dysfunction with severe global hypokinesis and left ventricle Reported large volume diuresis though this was not quantified on admission; Brody placed for strict I/O Aggressive diuresis appears to be effective given substantial clinical improvement and large urine output, lower creatinine Dry chest CT to better evaluate lung infiltrates (3) Acute kidney injury superimposed on chronic kidney disease Is this a current diagnosis for this admission?: Yes Plan: Suspect cardiorenal syndrome, improving IV Bumex for diuresis as above Monitor I/O Nephrology consulted by ED, patient may need dialysis which he has needed in the past Trend BMP Discussed the case with nephrology (4) Acute metabolic encephalopathy Is this a current diagnosis for this admission?: Yes (5) Acute respiratory failure with hypoxia Is this a current diagnosis for this admission?: Yes (6) COPD (chronic obstructive pulmonary disease) Qualifiers: COPD type: chronic bronchitis Chronic bronchitis type: unspecified Qualified Code(s): J42 - Unspecified chronic bronchitis Is this a current diagnosis for this admission?: Yes (7) Metabolic encephalopathy Is this a current diagnosis for this admission?: Yes - Time Time Spent with patient: 35 or more minutes Medications reviewed and adjusted accordingly: Yes - Inpatient Certification Medical Necessity: Significant Comorbidiites Make Outpatient Treatment Too Risky, Need Close Monitoring Due to Risk of Patient Decompensation, Risk of Complication if Not Cared For in Hospital, Risk of Diagnosis Which Will Require Inpatient Eval/Care/Monitoring
--- NOTE | 2019-06-19 12:31 | PDOC PROGRESS REPORT ---
Subjective Progress Note for:: 06/19/19 Reason For Visit: Patient seen today. He is more awake and responsive. He denies specific complaints of any chest pain, fever or chills. Still has some shortness of breath. Discussions were done with the treating nurse as well as with the hospitalist Dr. Overton. Labs and medications were reviewed. He has made good urine output of 1700 cc which is encouraging. His renal numbers show slightly improved creatinine down to 2.9. Electrolytes are stable. Hemoglobin is droppe d slightly. Physical Exam Vital Signs: Temp Pulse Resp BP Pulse Ox 97.5 F 100 18 120/46 L 91 L 06/19/19 10:00 06/19/19 12:00 06/19/19 12:00 06/19/19 10:00 06/19/19 12:00 Intake & Output 06/18/19 06/19/19 06/20/19 06:59 06:59 06:59 Intake Total 360 Output Total 1725 Balance -1365 Weight 101.8 kg 101.8 kg General appearance: PRESENT: no acute distress Respiratory exam: PRESENT: clear to auscultation torsten. ABSENT: crackles Cardiovascular exam: PRESENT: +S1, +S2 GI/Abdominal exam: PRESENT: normal bowel sounds, soft. ABSENT: organomegaly, tenderness Neurological exam: PRESENT: awake Skin exam: PRESENT: rash - Of both lower extremities of venous stasis. He has some covered bandages and unable to look through that. Results Laboratory Results: 06/19/19 05:51 06/19/19 05:51 06/18/19 06/19/19 06/19/19 14:35 05:51 05:51 WBC 8.7 RBC 3.13 L Hgb 8.5 L Hct 25.6 L MCV 82 MCH 27.2 MCHC 33.3 RDW 24.0 H Plt Count 288 Carbonic Acid 1.38 H HCO3/H2CO3 Ratio 21:1 ABG pH 7.43 ABG pCO2 46.0 H ABG pO2 63.6 L ABG HCO3 29.9 H ABG O2 Saturation 92.7 L ABG Base Excess 4.9 FiO2 6 Sodium 135.4 L Potassium 4.0 Chloride 97 L Carbon Dioxide 31 H Anion Gap 7 BUN 68 H Creatinine 2.94 H Est GFR ( Amer) 27 L Glucose 93 Calcium 8.5 PTH Intact 06/19/19 05:51 WBC RBC Hgb Hct MCV MCH MCHC RDW Plt Count Carbonic Acid HCO3/H2CO3 Ratio ABG pH ABG pCO2 ABG pO2 ABG HCO3 ABG O2 Saturation ABG Base Excess FiO2 Sodium Potassium Chloride Carbon Dioxide Anion Gap BUN Creatinine Est GFR ( Amer) Glucose Calcium PTH Intact 166.2 H 06/17/19 13:25 Throat Throat Culture - Final NORMAL TAMIKO 06/17/19 06/17/19 06/17/19 11:25 11:25 11:25 Creatine Kinase < 20 L Troponin I 0.019 NT-Pro-B Natriuret Pep [id number] H Impressions: Abdomen/Pelvis CT 06/17/19 11:29 IMPRESSION: Small amount of free fluid improved from prior exam. Bibasilar airspace disease is again noted mildly improved from prior exam as well. Other findings as described. Head CT 06/17/19 11:29 IMPRESSION: MILD CHRONIC CHANGES OF ATROPHY AND MICROVASCULAR ISCHEMIA. NO ACUTE PROCESS. EVIDENCE OF ACUTE STROKE: NO. Chest X-Ray 06/19/19 07:00 IMPRESSION: BILATERAL AIRSPACE DISEASE. MILD CARDIOMEGALY. NO SIGNIFICANT CHANGE. Assessment & Plan - Diagnosis (1) Acute exacerbation of congestive heart failure Qualifiers: Heart failure type: unspecified Qualified Code(s): I50.9 - Heart failure, unspecified Is this a current diagnosis for this admission?: Yes Plan: Clinically improved. Has a had a good diuretic response of close to 2 L since yesterday. Repeat chest x-ray done this AM shows persistent infiltrates which is therefore concerning of underlying interstitial disease or infective process. Discussed with the hospitalist about the potential for Covid 19 given the current pandemic that is raging around this. Advised proper precautions. (2) Acute kidney injury superimposed on chronic kidney disease Is this a current diagnosis for this admission?: Yes Plan: Non-oliguric with improved diuresis and stable renal numbers. No indications for renal dialysis today. Will reevaluate tomorrow. I am off tomorrow and Dr. Titus will assume care. Still has got right IJ catheter which can be used. (3) Acute respiratory failure with hypoxia Is this a current diagnosis for this admission?: Yes Plan: Improving. Monitor. (4) Anemia Plan: Needs further evaluation. (5) Chronic anoxic encephalopathy Plan: Improved and possibly back to baseline. Still has some deficits but is a whole lot better than when he came in. (6) Bipolar disorder Plan: Stable. (7) Stasis dermatitis of both legs Plan: As per hospitalist.
--- NOTE | 2019-06-19 13:50 | RADIOLOGY REPORT (SQ) ---
EXAM DESCRIPTION: CT CHEST WITHOUT IMAGES COMPLETED DATE/TIME: 06/19/2019 1:25 pm REASON FOR STUDY: CHF vs PNA COMPARISON: Chest films 05/14/2019, 05/20/2019, 06/30/2019, 06/19/2019 CT chest 05/27/2018 TECHNIQUE: CT scan performed of the chest without intravenous contrast. Images reviewed with lung, soft tissue and bone windows. Reconstructed coronal and sagittal MPR images reviewed. All images st ored on PACS. All CT scanners at this facility use dose modulation, iterative reconstruction, and/or weight based d osing when appropriate to reduce radiation dose to as low as reasonably achievable (ALARA). [facility]: Dose Right [facility]: CareDose [facility]: Dose Right [facility]: Teradose 4D [facility]: [employer] RADIATION DOSE: CT Rad equipment meets quality standard of care and radiation dose reduction techniq ues were employed. CTDIvol: 13.7 mGy. DLP: 519 mGy-cm. mGy. LIMITATIONS: No technical limitations. FINDINGS: LUNGS AND PLEURA: There are patchy diffuse alveolar and interstitial infiltrates around th e periphery both lungs worrisome for pneumonia. This is most confluent the left upper lobe No pleural effusions. No pneumothorax. HILAR AND MEDIASTINAL STRUCTURES: Persistent left AP window and right paratracheal lymph nodes increa sed in number but normal in size, axial images 16 through 24. These are unchanged from prior CT 05/27 HEART AND VASCULAR STRUCTURES: Main pulmonary artery is prominent, 4 cm in diameter worrisome for pul monary hypertension mild cardiomegaly. Spotty coronary artery calcifications. No pericardial effusi on UPPER ABDOMEN: No significant findings. Limited exam. THYROID AND OTHER SOFT TISSUES: No masses. No adenopathy. BONES: No significant finding. HARDWARE: Old sternotomy for CABG. OTHER: No other significant findings. IMPRESSION: Patchy diffuse peripheral alveolar and interstitial infiltrates worrisome for pneumonia. This is most confluent in the left upper lobe. TECHNICAL DOCUMENTATION: JOB ID: [id number] Quality ID # [id number]: Final reports with documentation of one or more dose reduction techniques (e.g., Au tomated exposure control, adjustment of the mA and/or kV according to patient size, use of iterative reconstruction technique) 2010 [employer]- All Rights Reserved Reading location - IP/workstation name: [email or web address]
[2019-06-19] MEDS: ACETAMINOPHEN 325 MG TABLET PO PRN ×2 (14:33→21:08)
[2019-06-19] MEDS: QUETIAPINE FUMARATE 100 MG TABLET PO SCH (21:09)
[2019-06-20] MEDS: LEVALBUTEROL HCL NEB 1.25 MG/3 ML AMPUL NEB SCH ×5 (00:29→15:25)
[2019-06-20] MEDS: IPRATROPIUM BROMIDE 0.02% NEB 0.5 MG/2.5 ML AMPUL NEB SCH ×5 (00:29→15:23)
[2019-06-20 06:38] LABS: ANION GAP 9 (5-19); BLOOD UREA NITROGEN 65 mg/dL (7-20); CALCIUM 8.3 mg/dL (8.4-10.2); CARBON DIOXIDE 29 mmol/L (22-30); CHLORIDE 96 mmol/L (98-107); GLUCOSE 86 mg/dL (75-110); POTASSIUM 4.1 mmol/L (3.6-5.0)
[2019-06-20] MEDS: INSULIN LISPRO 100 UNIT/ML 3 ML VIAL SUBCUT SCH ×4 (07:39→21:18)
[2019-06-20] MEDS: VITAMIN B COMPLEX TABLET PO SCH (09:51)
[2019-06-20] MEDS: PANTOPRAZOLE SODIUM 20 MG TABLET.DR PO SCH (09:52)
[2019-06-20] MEDS: NITROGLYCERIN 15 MG (0.6 MG/1 HR) PATCH.TD24 TD SCH (09:52)
[2019-06-20] MEDS: THIAMINE HCL 100 MG TABLET PO SCH (09:52)
[2019-06-20] MEDS: SUCRALFATE 1 GM TABLET PO SCH ×4 (09:52→21:17)
[2019-06-20] MEDS: BUMETANIDE INJ/PF 1 MG/4 ML SDV IV SCH ×2 (09:52→17:18)
[2019-06-20] MEDS: MULTIVITAMIN TABLET PO SCH (09:52)
[2019-06-20] MEDS: METOPROLOL SUCCINATE 25 MG TAB.SR.24H PO SCH ×2 (09:52→21:17)
[2019-06-20] MEDS: MINERAL OIL/PETROLATUM,WHITE CREAM 114 GM TP SCH (09:54)
[2019-06-20] MEDS: CEFTRIAXONE 2 GM/D5W RTU 2 GM/50 ML RTUPB IV SCH (09:55)
[2019-06-20] MEDS: FLUTICASONE/UMECLIDIN/VILANTER 100-62.5-25 MCG/DOSE IH SCH (09:56)
[2019-06-20] MEDS ORDERED: AZITHROMYCIN INJ 500 MG VIAL IV SCH (10:00)
--- NOTE | 2019-06-20 12:12 | PDOC PROGRESS REPORT ---
Subjective Progress Note for:: 06/20/19 Subjective:: Patient was readmitted on 06/17/2019 due to encephalopathy, CHF exacerbation, rectal bleeding and painful lower extremities with stasis dermatitis. I have been been involved in the patient's care during past admission for which she was just discharged on June 12. At that time the patient had acute kidney injury on chronic kidney disease requiring renal replacement therapy for a couple weeks but the patient's kidney function has recovered and prior to discharge he has not required any renal replacement therapy for a week. He was discharged on Lasix 40 mg 3 times a day. Uncertain what happened at [facility] because the patient was very stable upon discharge. Innervates the patient was managed with IV Bumex which he responded very well. He has been diuresing with excellent urine output of 2240 mL for the past 24 hours with negative fluid balance. He came in with creatinine of 3.69. When he was discharged on June 12 he had a BUN of 50, creatinine of 2.52 with EGFR of 26. His kidney function continues to improve and today he has a BUN of 65, creatinine of 2.64 with EGFR of 24. When I entered the room he was very comfortable lying on his bed. He was not short of breath at all. His mental status is actually better than when I have seen him prior to discharge about a week ago. The only complaints he has is pain on his legs. He denies any cough, fever nor chills. He only stayed in the half-way for approximately 3 days before he got readmitted and has not been to any other place before that. He had a chest x-ray and CT scan of the chest which showed diffuse bilateral alveolar infiltrates. Compared to admission chest x-ray on June 16, there was a significant improvement though although there are still persistent infiltrates. Dr. Welch is a concern for possible COVID-[address] with [address] Overton. So now the patient will be tested for COVID-19 and will be transferred to the fifth floor until resulted. Reason For Visit: ACUTE CHF EXACERBATION, ACUTE HYPOXEMIC RESP Physical Exam Vital Signs: Temp Pulse Resp BP Pulse Ox 97.5 F 60 12 140/59 H 91 L 06/20/19 07:21 06/20/19 07:49 06/20/19 07:49 06/20/19 07:21 06/20/19 09:29 Intake & Output 06/19/19 06/20/19 06/21/19 06:59 06:59 06:59 Intake Total 360 1530 Output Total 1725 2240 Balance -1365 -710 Weight 101.8 kg 101 kg Exam: General appearance: PRESENT: no acute distress, cooperative, fairly-developed, fairly-nourished, patient is very hard of hearing Head exam: PRESENT: atraumatic, normocephalic Eye exam: PRESENT: conjunctiva pale, PERRLA. ABSENT: scleral icterus Neck exam: ABSENT: JVD Respiratory exam: PRESENT: Diminished breath sounds. ABSENT: crackles, rales, rhonchi, unlabored, wheezes Cardiovascular exam: PRESENT: Regular rate rhythm -+S1, +S2. ABSENT: diastolic murmur, systolic murmur GI/Abdominal exam: PRESENT: normal bowel sounds, soft. ABSENT: guarding, mass, tenderness Extremities exam: Minimal grade 1 bilateral lower extremity pitting edema which actually looked better than couple weeks ago Neurological exam: PRESENT: alert, awake, oriented to person, place and time. Skin exam: PRESENT: dry, warm, patient has sores over his lower extremities with skin changes consistent with stasis dermatitis Cardiovascular exam: PRESENT: +S1, +S2 GI/Abdominal exam: PRESENT: normal bowel sounds, soft. ABSENT: organomegaly, tenderness Results Laboratory Results: 06/19/19 05:51 06/20/19 04:35 06/20/19 06/20/19 04:35 04:35 Sodium 133.5 L Potassium 4.1 Chloride 96 L Carbon Dioxide 29 Anion Gap 9 BUN 65 H Creatinine 2.69 H Est GFR ( Amer) 29 L Glucose 86 Calcium 8.3 L GGT 230 H 06/17/19 13:25 Throat Throat Culture - Final NORMAL TAMIKO 06/17/19 06/17/19 06/17/19 11:25 11:25 11:25 Creatine Kinase < 20 L Troponin I 0.019 NT-Pro-B Natriuret Pep 61317 H Impressions: Abdomen/Pelvis CT 06/17/19 11:29 IMPRESSION: Small amount of free fluid improved from prior exam. Bibasilar airspace disease is again noted mildly improved from prior exam as well. Other findings as described. Head CT 06/17/19 11:29 IMPRESSION: MILD CHRONIC CHANGES OF ATROPHY AND MICROVASCULAR ISCHEMIA. NO ACUTE PROCESS. EVIDENCE OF ACUTE STROKE: NO. Chest CT 06/19/19 00:00 IMPRESSION: Patchy diffuse peripheral alveolar and interstitial infiltrates worrisome for pneumonia. This is most confluent in the left upper lobe. Chest X-Ray 06/19/19 07:00 IMPRESSION: BILATERAL AIRSPACE DISEASE. MILD CARDIOMEGALY. NO SIGNIFICANT CHANGE. Assessment & Plan - Diagnosis (1) Acute on chronic systolic and diastolic heart failure, NYHA class 2 Is this a current diagnosis for this admission?: Yes Plan: Patient is a known a ejection fraction of 25% with grade 1/4 diastolic dysfunction. Currently on Bumex 1 mg twice daily with good response. Continue the same. Last admission, dynamics ax consultant, Dr. Lara recommended putting the patient on low-dose JOSE D or ARB for which he was started on valsartan 80 mg once daily. Once the kidney function is back to his baseline I think we can start giving him even just a 40 mg valsartan to start with. (2) Acute kidney injury superimposed on chronic kidney disease Is this a current diagnosis for this admission?: Yes Plan: Acute exacerbation of the patient's kidney function is most likely secondary to prerenal factors related to the patient's exacerbation of congestive heart failure. Patient is currently diuresing very well with improvement of kidney function. Continue same management. No need for any renal replacement therapy at this time. Continue to monitor kidney function. (3) Chronic kidney disease, stage IV (severe) Is this a current diagnosis for this admission?: Yes Plan: This is due to cardiorenal syndrome. Baseline creatinine around 2.4-2.5. (4) Anemia in chronic kidney disease (CKD) Is this a current diagnosis for this admission?: Yes Plan: We will start the patient Retacrit 20,000 units q. weekly starting today. (5) Iron deficiency Is this a current diagnosis for this admission?: Yes Plan: I will give a dose of IV Injectafer x1 dose today. (6) Chronic kidney disease-mineral and bone disorder Is this a current diagnosis for this admission?: Yes Plan: Start calcitriol 0.25 mcg daily. PTH is 166.2 and phosphorus is 5.4. Follow renal diet with low phosphorus. (7) Hypertension Qualifiers: Hypertension type: essential hypertension Qualified Code(s): I10 - Essential (primary) hypertension Is this a current diagnosis for this admission?: Yes Plan: Acceptable control. (8) Pulmonary hypertension Is this a current diagnosis for this admission?: Yes (9) Hyponatremia Is this a current diagnosis for this admission?: Yes Plan: Likely due to hypervolemic state. (10) Stasis dermatitis of both legs Is this a current diagnosis for this admission?: Yes (11) Acute metabolic encephalopathy Is this a current diagnosis for this admission?: Yes Plan: Resolved. Currently at baseline mental status. (13) COPD (chronic obstructive pulmonary disease) Qualifiers: COPD type: chronic bronchitis Chronic bronchitis type: unspecified Qualified Code(s): J42 - Unspecified chronic bronchitis Is this a current diagnosis for this admission?: Yes (14) Hearing loss Is this a current diagnosis for this admission?: Yes - Notes Notes: Discussed with Dr. Overton today. - Time Time with patient: 15-25 minutes
[2019-06-20] MEDS ORDERED: EPOETIN ALFA-EPBX 10,000 UNIT/ML VIAL (NON-ESRD) SUBCUT SCH (13:00)
[2019-06-20] MEDS: AZITHROMYCIN 500 MG in DEXTROSE 5%-WATER 250 ML IV SCH (13:29)
[2019-06-20] MEDS: BACLOFEN 10 MG TABLET PO PRN ×2 (14:19→21:17)
--- NOTE | 2019-06-20 14:31 | PDOC PROGRESS REPORT ---
Subjective Progress Note for:: 06/20/19 Subjective:: Patient look significantly improved today, much more alert, mentation probably back to his baseline or at least close to it. Lungs sound less congested, less wet. Reviewed chest x-ray which may be lagging behind his clinical improvement. He is having good urine output and his creatinine is improved. Hemoglobin slightly lower but no reported bleeding. Urine output was substantial at 1700 cc since yesterday with a net negative value of 1365, consistent with his clinical improvement. Discussed with nursing we need to continue weaning his oxygen as I do not believe he actually requires 5 L nasal cannula, probably needs 2 to 3 L nasal cannula which is his baseline. I discussed the case with nephrology today and they had some concerns about possible coronavirus, however I noted patient has no fever, normal white count, no cough, no reported sick contacts, no travel as he is a long-term resident in a nursing facility. At this time, feel like he is lower risk to actually have coronavirus and probably higher risk for us to test him and then give him coronavirus by putting him on the isolation floor with clearly positive patients. If he develops a fever and cough I certainly think we should test him for this. We will get a dry chest CT to gain some clarity on the quality and distribution of his chest x-ray infiltrates. Cannot give contrast to rule out PE and other etiologies due to his renal failure. Patient is complaining of painful feet and he certainly looks like he has some vascular disease there. We will check JASON. Patient has no new complaints today otherwise Reason For Visit: ACUTE CHF EXACERBATION, ACUTE HYPOXEMIC RESP Physical Exam Vital Signs: Temp Pulse Resp BP Pulse Ox 97.3 F 62 18 131/55 H 91 L 06/20/19 12:06 06/20/19 12:06 06/20/19 12:06 06/20/19 12:06 06/20/19 12:06 Intake & Output 06/19/19 06/20/19 06/21/19 06:59 06:59 06:59 Intake Total 360 1530 1190 Output Total 1725 2240 Balance -1365 -710 1190 Weight 101.8 kg 101 kg General appearance: PRESENT: no acute distress, well-developed, well-nourished Head exam: PRESENT: atraumatic, normocephalic Eye exam: PRESENT: conjunctiva pink Respiratory exam: PRESENT: crackles - Very mild mostly on the right, improving. ABSENT: accessory muscle use, rales, rhonchi, wheezes Cardiovascular exam: PRESENT: RRR. ABSENT: diastolic murmur, rubs, systolic murmur GI/Abdominal exam: PRESENT: normal bowel sounds, soft. ABSENT: distended, guarding, mass, organolmegaly, rebound, tenderness Extremities exam: PRESENT: pedal edema Neurological exam: PRESENT: alert, awake, oriented to person, oriented to place Psychiatric exam: PRESENT: appropriate affect, normal mood Skin exam: PRESENT: dry, intact, warm Results Laboratory Results: 06/19/19 05:51 06/20/19 04:35 06/20/19 06/20/19 04:35 04:35 Sodium 133.5 L Potassium 4.1 Chloride 96 L Carbon Dioxide 29 Anion Gap 9 BUN 65 H Creatinine 2.69 H Est GFR ( Amer) 29 L Glucose 86 Calcium 8.3 L GGT 230 H 06/17/19 06/17/19 06/17/19 11:25 11:25 11:25 Creatine Kinase < 20 L Troponin I 0.019 NT-Pro-B Natriuret Pep 47079 H Impressions: Abdomen/Pelvis CT 06/17/19 11:29 IMPRESSION: Small amount of free fluid improved from prior exam. Bibasilar airspace disease is again noted mildly improved from prior exam as well. Other findings as described. Head CT 06/17/19 11:29 IMPRESSION: MILD CHRONIC CHANGES OF ATROPHY AND MICROVASCULAR ISCHEMIA. NO ACUTE PROCESS. EVIDENCE OF ACUTE STROKE: NO. Chest CT 06/19/19 00:00 IMPRESSION: Patchy diffuse peripheral alveolar and interstitial infiltrates worrisome for pneumonia. This is most confluent in the left upper lobe. Chest X-Ray 06/19/19 07:00 IMPRESSION: BILATERAL AIRSPACE DISEASE. MILD CARDIOMEGALY. NO SIGNIFICANT CHANGE. Assessment and Plan - Diagnosis (1) Acute exacerbation of congestive heart failure Qualifiers: Heart failure type: unspecified Qualified Code(s): I50.9 - Heart failure, unspecified Is this a current diagnosis for this admission?: Yes Plan: Acute on chronic combined systolic and diastolic CHF exacerbation Chest x-ray shows volume overload BNP markedly elevated over 15,000 IV Bumex 1 mg twice daily, additional dose added by nephrology as needed Supplemental oxygen to maintain saturation 89 to 92% Previous echocardiogram reviewed which showed EF 25% and grade 1 diastolic dysfunction with severe global hypokinesis and left ventricle Reported large volume diuresis though this was not quantified on admission; Brody placed for strict I/O Aggressive diuresis appears to be effective given substantial clinical improve ment and large urine output, lower creatinine Dry chest CT showed bilateral infiltrates, possibly pneumonia; started treatment for pneumonia and tested for coronavirus when this was seen Significant improvement with diuresis both clinically and based on labs (2) Community acquired pneumonia Qualifiers: Laterality: unspecified laterality Qualified Code(s): J18.9 - Pneumonia, unspecified organism Is this a current diagnosis for this admission?: Yes Plan: Seen on chest CT Ceftriaxone/azithromycin Rule out coronavirus, sent to specialty unit for this until negative result (3) GI bleed Qualifiers: GI bleed type/associated pathology: unspecified gastrointestinal hemorrhage type Qualified Code(s): K92.2 - Gastrointestinal hemorrhage, unspecified Is this a current diagnosis for this admission?: Yes Plan: Hemoccult positive; no further reported rectal bleeding No active bleeding observed on admission Hemoglobin 10 on admission which is higher than baseline, trend hemoglobin and transfuse for values less than 7 Monitor and offer conservative measures unless actively bleeding or hemoglobin acutely dropping Baseline hemoglobin per records appears to be approximately 9.5-10 Holding all anticoagulation Needs GI outpatient follow-up after discharge (4) Acute kidney injury superimposed on chronic kidney disease Is this a current diagnosis for this admission?: Yes Plan: Suspect cardiorenal syndrome, improving IV Bumex for diuresis as above Monitor I/O Nephrology consulted by ED, patient may need dialysis which he has needed in the past Trend BMP Discussed the case with nephrology Consistently improving with diuresis (5) Acute metabolic encephalopathy Is this a current diagnosis for this admission?: Yes (6) Acute respiratory failure with hypoxia Is this a current diagnosis for this admission?: Yes (7) COPD (chronic obstructive pulmonary disease) Qualifiers: COPD type: chronic bronchitis Chronic bronchitis type: unspecified Qualified Code(s): J42 - Unspecified chronic bronchitis Is this a current diagnosis for this admission?: Yes (8) Metabolic encephalopathy Is this a current diagnosis for this admission?: Yes - Time Time Spent with patient: 25-34 minutes Medications reviewed and adjusted accordingly: Yes - Inpatient Certification Based on my medical assessment, after consideration of the patient's comorbidities, presenting symptoms, or acuity I expect that the services needed warrant INPATIENT care.: Yes I certify that my determination is in accordance with my understanding of Medicare's requirements for reasonable and necessary INPATIENT services [42 CFR 412.3e].: Yes Medical Necessity: Significant Comorbidiites Make Outpatient Treatment Too Risky, Need Close Monitoring Due to Risk of Patient Decompensation, Risk of Complication if Not Cared For in Hospital
[2019-06-20] MEDS ORDERED: FERRIC CARBOXYMALTOSE 750 MG in NORMAL SALINE 100 ML IV ONE (16:00)
[2019-06-20] MEDS: QUETIAPINE FUMARATE 100 MG TABLET PO SCH (21:17)
[2019-06-21 05:46] LABS: ANION GAP 8 (5-19); BLOOD UREA NITROGEN 62 mg/dL (7-20); CARBON DIOXIDE 28 mmol/L (22-30); CHLORIDE 99 mmol/L (98-107); GLUCOSE 79 mg/dL (75-110); POTASSIUM 4.4 mmol/L (3.6-5.0)
[2019-06-21] MEDS: INSULIN LISPRO 100 UNIT/ML 3 ML VIAL SUBCUT SCH ×4 (07:55→21:12)
[2019-06-21] MEDS: PANTOPRAZOLE SODIUM 20 MG TABLET.DR PO SCH (08:04)
[2019-06-21] MEDS: SUCRALFATE 1 GM TABLET PO SCH ×4 (08:04→21:12)
[2019-06-21] MEDS: METOPROLOL SUCCINATE 25 MG TAB.SR.24H PO SCH (09:13)
[2019-06-21] MEDS: MINERAL OIL/PETROLATUM,WHITE CREAM 114 GM TP SCH (09:24)
[2019-06-21] MEDS: FLUTICASONE/UMECLIDIN/VILANTER 100-62.5-25 MCG/DOSE IH SCH (09:25)
[2019-06-21] MEDS: NITROGLYCERIN 15 MG (0.6 MG/1 HR) PATCH.TD24 TD SCH (09:25)
[2019-06-21] MEDS: CEFTRIAXONE 2 GM/D5W RTU 2 GM/50 ML RTUPB IV SCH (09:26)
[2019-06-21] MEDS: BUMETANIDE INJ/PF 1 MG/4 ML SDV IV SCH ×2 (09:26→17:14)
[2019-06-21] MEDS: MULTIVITAMIN TABLET PO SCH (09:26)
[2019-06-21] MEDS: THIAMINE HCL 100 MG TABLET PO SCH (09:26)
[2019-06-21] MEDS: CALCITRIOL 0.25 MCG CAPSULE PO SCH (09:26)
[2019-06-21] MEDS: VITAMIN B COMPLEX TABLET PO SCH (09:26)
[2019-06-21] MEDS: AZITHROMYCIN 500 MG in DEXTROSE 5%-WATER 250 ML IV SCH (11:36)
--- NOTE | 2019-06-21 15:36 | PDOC PROGRESS REPORT ---
Subjective Progress Note for:: 06/21/19 Subjective:: Patient feels well today. Denies any worsening of his baseline shortness of breath. Currently not feeling short of breath at rest. Discussed with patient the plan and that he is being tested for coronavirus. Patient states that he was unaware that he had a pneumonia because he was not even experiencing any cough. Reason For Visit: ACUTE CHF EXACERBATION, ACUTE HYPOXEMIC RESP Physical Exam Vital Signs: Temp Pulse Resp BP Pulse Ox 98.3 F 56 L 19 123/54 L 99 06/21/19 11:26 06/21/19 11:26 06/21/19 11:26 06/21/19 11:26 06/21/19 11:26 Intake & Output 06/20/19 06/21/19 06/22/19 06:59 06:59 06:59 Intake Total 1530 2160 540 Output Total 2240 2775 700 Balance -710 -615 -160 Weight 101 kg 99.9 kg General appearance: PRESENT: no acute distress, cooperative Neck exam: ABSENT: JVD Respiratory exam: PRESENT: unlabored. ABSENT: rales, tachypnea, wheezes Cardiovascular exam: PRESENT: bradycardia, +S1, +S2. ABSENT: irregular rhythm, tachycardia GI/Abdominal exam: PRESENT: soft. ABSENT: rebound, rigid, tenderness Neurological exam: PRESENT: alert, awake Psychiatric exam: ABSENT: agitated, anxious Focused psych exam: ABSENT: pressured speech Skin exam: ABSENT: jaundice Results Laboratory Results: 06/19/19 05:51 06/21/19 04:39 06/21/19 04:39 Sodium 135.1 L Potassium 4.4 Chloride 99 Carbon Dioxide 28 Anion Gap 8 BUN 62 H Creatinine 2.29 H Est GFR ( Amer) 35 L Glucose 79 Calcium 9.0 06/17/19 06/17/19 06/17/19 11:25 11:25 11:25 Creatine Kinase < 20 L Troponin I 0.019 NT-Pro-B Natriuret Pep 50540 H Impressions: Abdomen/Pelvis CT 06/17/19 11:29 IMPRESSION: Small amount of free fluid improved from prior exam. Bibasilar airspace disease is again noted mildly improved from prior exam as well. Other findings as described. Head CT 06/17/19 11:29 IMPRESSION: MILD CHRONIC CHANGES OF ATROPHY AND MICROVASCULAR ISCHEMIA. NO ACUTE PROCESS. EVIDENCE OF ACUTE STROKE: NO. Chest CT 06/19/19 00:00 IMPRESSION: Patchy diffuse peripheral alveolar and interstitial infiltrates worrisome for pneumonia. This is most confluent in the left upper lobe. Chest X-Ray 06/19/19 07:00 IMPRESSION: BILATERAL AIRSPACE DISEASE. MILD CARDIOMEGALY. NO SIGNIFICANT CHANGE. Assessment and Plan - Diagnosis (1) Acute exacerbation of congestive heart failure Qualifiers: Heart failure type: unspecified Qualified Code(s): I50.9 - Heart failure, unspecified Is this a current diagnosis for this admission?: Yes Plan: Acute on chronic combined systolic and diastolic CHF exacerbation Chest x-ray shows volume overload BNP markedly elevated over 15,000 IV Bumex 1 mg twice daily Previous echocardiogram reviewed which showed EF 25% and grade 1 diastolic dysfunction with severe global hypokinesis and left ventricle (2) Community acquired pneumonia Qualifiers: Laterality: unspecified laterality Qualified Code(s): J18.9 - Pneumonia, unspecified organism Is this a current diagnosis for this admission?: Yes Plan: Seen on chest CT Ceftriaxone/azithromycin Rule out coronavirus, sent to specialty unit for this until negative result (3) GI bleed Qualifiers: GI bleed type/associated pathology: unspecified gastrointestinal hemorrhage type Qualified Code(s): K92.2 - Gastrointestinal hemorrhage, unspecified Is this a current diagnosis for this admission?: Yes Plan: Hemoccult positive; no further reported rectal bleeding No active bleeding observed on admission Hemoglobin 10 on admission which is higher than baseline, trend hemoglobin and transfuse for values less than 7 Monitor and offer conservative measures unless actively bleeding or hemoglobin acutely dropping Baseline hemoglobin per records appears to be approximately 9.5-10 Holding all anticoagulation Needs GI outpatient follow-up after discharge (4) Acute kidney injury superimposed on chronic kidney disease Is this a current diagnosis for this admission?: Yes Plan: -Monitor kidney function with diuresis (5) COPD (chronic obstructive pulmonary disease) Qualifiers: COPD type: chronic bronchitis Chronic bronchitis type: unspecified Qualified Code(s): J42 - Unspecified chronic bronchitis Is this a current diagnosis for this admission?: Yes Plan: -No active wheezing. Likely not in exacerbation. Patient does have chronic hypoxic respiratory failure secondary to COPD and pulmonary hypertension. Currently patient is maintaining SPO2 of 99% on 4 L. No evidence of worsening hypoxia. -Albuterol PRN. LABA/LAMA/ICS - Time Time Spent with patient: 15-24 minutes
[2019-06-21] MEDS: BACLOFEN 10 MG TABLET PO PRN (21:11)
[2019-06-21] MEDS: QUETIAPINE FUMARATE 100 MG TABLET PO SCH (21:11)
[2019-06-22 05:45] LABS: ABSOLUTE LYMPHOCYTES (AUTO) 1.1 10^3/uL (0.5-4.7); ABSOLUTE MONOCYTES (AUTO) 0.8 10^3/uL (0.1-1.4); HEMOGLOBIN 8.8 g/dL (13.5-17.0); PLATELET COUNT 292 10^3/uL (150-450); RED CELL DISTRIBUTION WIDTH 23.3 % (11.5-14.0); TOTAL CELLS COUNTED % (AUTO) 100 %
[2019-06-22 05:53] LABS: ABSOLUTE BASOPHILS # (AUTO) 0.1 10^3/uL (0.0-0.2); ABSOLUTE EOSINOPHILS # (AUTO) 0.4 10^3/uL (0.0-0.6); BASOPHILS % (AUTO) 1.5 % (0-2); EOSINOPHILS % (AUTO) 4.9 % (0-6); HEMATOCRIT 26.4 % (37.9-51.0); LYMPHOCYTES % (AUTO) 12.9 % (13-45); MEAN CORPUSCULAR HGB CONC 33.3 g/dL (32.0-36.0); MEAN CORPUSCULAR VOLUME 81 fl (80-97); MONOCYTES % (AUTO) 9.6 % (3-13); RED BLOOD COUNT 3.25 10^6/uL (4.35-5.55); SEGMENTED NEUTROPHILS % (AUTO) 71.1 % (42-78); WHITE BLOOD COUNT 8.4 10^3/uL (4.0-10.5)
[2019-06-22] MEDS: SUCRALFATE 1 GM TABLET PO SCH ×4 (08:06→21:13)
[2019-06-22] MEDS: INSULIN LISPRO 100 UNIT/ML 3 ML VIAL SUBCUT SCH ×4 (08:06→21:46)
[2019-06-22] MEDS: PANTOPRAZOLE SODIUM 20 MG TABLET.DR PO SCH (08:06)
[2019-06-22] MEDS: CEFTRIAXONE 2 GM/D5W RTU 2 GM/50 ML RTUPB IV SCH (09:53)
[2019-06-22] MEDS: MINERAL OIL/PETROLATUM,WHITE CREAM 114 GM TP SCH (09:54)
[2019-06-22] MEDS: METOPROLOL SUCCINATE 25 MG TAB.SR.24H PO SCH (09:54)
[2019-06-22] MEDS: CALCITRIOL 0.25 MCG CAPSULE PO SCH (09:54)
[2019-06-22] MEDS: BUMETANIDE INJ/PF 1 MG/4 ML SDV IV SCH ×2 (09:54→17:19)
[2019-06-22] MEDS: THIAMINE HCL 100 MG TABLET PO SCH (09:54)
[2019-06-22] MEDS: MULTIVITAMIN TABLET PO SCH (09:54)
[2019-06-22] MEDS: VITAMIN B COMPLEX TABLET PO SCH (09:54)
[2019-06-22] MEDS: NITROGLYCERIN 15 MG (0.6 MG/1 HR) PATCH.TD24 TD SCH (09:55)
[2019-06-22] MEDS: FLUTICASONE/UMECLIDIN/VILANTER 100-62.5-25 MCG/DOSE IH SCH (09:56)
--- NOTE | 2019-06-22 12:13 | PDOC PROGRESS REPORT ---
Subjective Progress Note for:: 06/22/19 Subjective:: No issues today. Patient is no respiratory distress. Vitals within normal limits. Reason For Visit: ACUTE CHF EXACERBATION, ACUTE HYPOXEMIC RESP Physical Exam Vital Signs: Temp Pulse Resp BP Pulse Ox 98.5 F 60 20 137/52 H 97 06/22/19 08:00 06/22/19 08:00 06/22/19 08:00 06/22/19 08:00 06/22/19 08:00 Intake & Output 06/21/19 06/22/19 06/23/19 06:59 06:59 06:59 Intake Total 2160 2445 Output Total 2775 3175 Balance -615 -730 Weight 99.9 kg 99.9 kg General appearance: PRESENT: no acute distress, cooperative, hard of hearing. ABSENT: mild distress, morbidly obese, thin Respiratory exam: ABSENT: tachypnea Cardiovascular exam: PRESENT: RRR, +S1, +S2. ABSENT: tachycardia Neurological exam: PRESENT: alert, awake Psychiatric exam: ABSENT: agitated Focused psych exam: ABSENT: pressured speech Skin exam: ABSENT: jaundice Results Laboratory Results: 06/22/19 05:18 06/21/19 04:39 06/22/19 05:18 WBC 8.4 RBC 3.25 L Hgb 8.8 L Hct 26.4 L MCV 81 MCH 27.0 MCHC 33.3 RDW 23.3 H Plt Count 292 Seg Neutrophils % 71.1 06/17/19 11:25 Blood Blood Culture - Final NO GROWTH IN 5 DAYS 06/17/19 06/17/19 06/17/19 11:25 11:25 11:25 Creatine Kinase < 20 L Troponin I 0.019 NT-Pro-B Natriuret Pep [id number] H Impressions: Abdomen/Pelvis CT 06/17/19 11:29 IMPRESSION: Small amount of free fluid improved from prior exam. Bibasilar airspace disease is again noted mildly improved from prior exam as well. Other findings as described. Head CT 06/17/19 11:29 IMPRESSION: MILD CHRONIC CHANGES OF ATROPHY AND MICROVASCULAR ISCHEMIA. NO ACUTE PROCESS. EVIDENCE OF ACUTE STROKE: NO. Chest CT 06/19/19 00:00 IMPRESSION: Patchy diffuse peripheral alveolar and interstitial infiltrates worrisome for pneumonia. This is most confluent in the left upper lobe. Chest X-Ray 06/19/19 07:00 IMPRESSION: BILATERAL AIRSPACE DISEASE. MILD CARDIOMEGALY. NO SIGNIFICANT CHANGE. Assessment and Plan - Diagnosis (1) Acute exacerbation of congestive heart failure Qualifiers: Heart failure type: unspecified Qualified Code(s): I50.9 - Heart failure, unspecified Is this a current diagnosis for this admission?: Yes Plan: Acute on chronic combined systolic and diastolic CHF exacerbation Chest x-ray shows volume overload BNP markedly elevated over 15,000 IV Bumex 1 mg twice daily Previous echocardiogram reviewed which showed EF 25% and grade 1 diastolic dysfunction with severe global hypokinesis and left ventricle (2) Community acquired pneumonia Qualifiers: Laterality: unspecified laterality Qualified Code(s): J18.9 - Pneumonia, unspecified organism Is this a current diagnosis for this admission?: Yes Plan: Seen on chest CT Ceftriaxone/azithromycin Currently under investigation for Suspected COVID 19 infection- test result pending (3) GI bleed Qualifiers: GI bleed type/associated pathology: unspecified gastrointestinal hemorrhage type Qualified Code(s): K92.2 - Gastrointestinal hemorrhage, unspecified Is this a current diagnosis for this admission?: Yes Plan: Hemoccult positive; no further reported rectal bleeding No active bleeding observed on admission Hemoglobin 10 on admission which is higher than baseline, trend hemoglobin and transfuse for values less than 7 Monitor and offer conservative measures unless actively bleeding or hemoglobin acutely dropping Baseline hemoglobin per records appears to be approximately 9.5-10 Holding all anticoagulation Needs GI outpatient follow-up after discharge (4) Acute kidney injury superimposed on chronic kidney disease Is this a current diagnosis for this admission?: Yes Plan: -Monitor kidney function with diuresis. Check electrolytes and creatinine in the morning. (5) COPD (chronic obstructive pulmonary disease) Qualifiers: COPD type: chronic bronchitis Chronic bronchitis type: unspecified Qualified Code(s): J42 - Unspecified chronic bronchitis Is this a current diagnosis for this admission?: Yes Plan: -No active wheezing. Likely not in exacerbation. Patient does have chronic hypoxic respiratory failure secondary to COPD and pulmonary hypertension. Cu rrently patient is maintaining SPO2 of 99% on 4 L. No evidence of worsening hypoxia. -Albuterol PRN. LABA/LAMA/ICS - Time Time Spent with patient: Less than 15 minutes
[2019-06-22] MEDS: AZITHROMYCIN 500 MG in DEXTROSE 5%-WATER 250 ML IV SCH (12:52)
[2019-06-22] MEDS: QUETIAPINE FUMARATE 100 MG TABLET PO SCH (21:13)
[2019-06-23 06:31] LABS: ABSOLUTE BASOPHILS # (AUTO) 0.1 10^3/uL (0.0-0.2); ABSOLUTE EOSINOPHILS # (AUTO) 0.5 10^3/uL (0.0-0.6); ABSOLUTE LYMPHOCYTES (AUTO) 1.2 10^3/uL (0.5-4.7); ABSOLUTE MONOCYTES (AUTO) 0.9 10^3/uL (0.1-1.4); ABSOLUTE NEUT (AUTO) 6.8 10^3/uL (1.7-8.2); BASOPHILS % (AUTO) 1.4 % (0-2); EOSINOPHILS % (AUTO) 5.5 % (0-6); HEMATOCRIT 26.7 % (37.9-51.0); HEMOGLOBIN 8.9 g/dL (13.5-17.0); MEAN CORPUSCULAR HEMOGLOBIN 27.3 pg (27.0-33.4); MEAN CORPUSCULAR HGB CONC 33.3 g/dL (32.0-36.0); MEAN CORPUSCULAR VOLUME 82 fl (80-97); PLATELET COUNT 307 10^3/uL (150-450); RED BLOOD COUNT 3.27 10^6/uL (4.35-5.55); RED CELL DISTRIBUTION WIDTH 23.1 % (11.5-14.0); SEGMENTED NEUTROPHILS % (AUTO) 71.1 % (42-78); TOTAL CELLS COUNTED % (AUTO) 100 %; WHITE BLOOD COUNT 9.6 10^3/uL (4.0-10.5)
[2019-06-23 06:50] LABS: ANION GAP 9 (5-19); BLOOD UREA NITROGEN 51 mg/dL (7-20); CALCIUM 9.1 mg/dL (8.4-10.2); CARBON DIOXIDE 26 mmol/L (22-30); CHLORIDE 100 mmol/L (98-107); GLUCOSE 75 mg/dL (75-110); POTASSIUM 3.9 mmol/L (3.6-5.0)
[2019-06-23] MEDS: INSULIN LISPRO 100 UNIT/ML 3 ML VIAL SUBCUT SCH ×4 (07:31→21:30)
[2019-06-23] MEDS: PANTOPRAZOLE SODIUM 20 MG TABLET.DR PO SCH (08:42)
[2019-06-23] MEDS: SUCRALFATE 1 GM TABLET PO SCH ×4 (08:42→21:30)
[2019-06-23] MEDS: CEFTRIAXONE 2 GM/D5W RTU 2 GM/50 ML RTUPB IV SCH (09:08)
[2019-06-23] MEDS: THIAMINE HCL 100 MG TABLET PO SCH (09:08)
[2019-06-23] MEDS: CALCITRIOL 0.25 MCG CAPSULE PO SCH (09:08)
[2019-06-23] MEDS: VITAMIN B COMPLEX TABLET PO SCH (09:08)
[2019-06-23] MEDS: MULTIVITAMIN TABLET PO SCH (09:08)
[2019-06-23] MEDS: METOPROLOL SUCCINATE 25 MG TAB.SR.24H PO SCH (09:08)
[2019-06-23] MEDS: BUMETANIDE INJ/PF 1 MG/4 ML SDV IV SCH (09:08)
[2019-06-23] MEDS: MINERAL OIL/PETROLATUM,WHITE CREAM 114 GM TP SCH (09:09)
[2019-06-23] MEDS: FLUTICASONE/UMECLIDIN/VILANTER 100-62.5-25 MCG/DOSE IH SCH (09:09)
[2019-06-23] MEDS: NITROGLYCERIN 15 MG (0.6 MG/1 HR) PATCH.TD24 TD SCH (09:09)
--- NOTE | 2019-06-23 11:23 | PDOC TRANSFER SUMMARY ---
Impression - Admit/DC Date/PCP Admission Date/Primary Care Provider: 06/17/19 15:07 SB GREENUMATEDO Discharge Date: 06/23/19 - Discharge Diagnosis (1) Acute exacerbation of congestive heart failure Is this a current diagnosis for this admission?: Yes (2) Community acquired pneumonia Is this a current diagnosis for this admission?: Yes (3) GI bleed Is this a current diagnosis for this admission?: Yes (4) Acute kidney injury superimposed on chronic kidney disease Is this a current diagnosis for this admission?: Yes (5) COPD (chronic obstructive pulmonary disease) Is this a current diagnosis for this admission?: Yes (6) Acute and chronic respiratory failure with hypoxia Is this a current diagnosis for this admission?: Yes - Additional Information Resuscitation Status: Full Code Discharge Diet: Cardiac, Other (Comments) Discharge Activity: Activity As Tolerated, Balance Activity w/Rest, Weigh Daily Referrals: [facility] [Outside] LAMINE RECINOS MD [ACTIVE STAFF] - SOFIA CONNORS MD [ACTIVE STAFF] - Prescriptions: Amoxicillin/Potassium Clav [Augmentin 875-125 Tablet] 1 tab PO Q12 #3 tablet Bumetanide [Bumex 1 mg Tablet] 1 tab PO DAILY #60 tab Isosorbide Mononitrate [Imdur 30 mg Tablet.er] 30 mg PO DAILY #30 tab.er.24h Home Medications: Albuterol Sulfate [Ventolin Hfa 8 gm Mdi] 2 puff IH Q6HP PRN 04/30/19 Thiamine HCl [Thiamine 100 mg Tablet] 100 mg PO DAILY 04/30/19 Multivitamin/Iron/Folic Acid [Centrum Adults Tablet] 1 each PO DAILY 05/12/19 Vitamin B Complex/Folic Acid [B-Complex Tablet] 1 tab PO DAILY 05/12/19 Fluticasone/Umeclidin/Vilanter [Trelegy 100-62.5-25 Mcg Ellipta 14 Dose/Dpi] 1 inh IH DAILY inhaler 06/12/19 Gabapentin [Neurontin 300 mg Capsule] 300 mg PO DAILY capsule 06/12/19 Metoprolol Succinate [Toprol Xl 25 mg Tab.sr] 25 mg PO Q12 tab.sr.24h 06/12/19 Mineral Oil/Petrolatum,White [Eucerin Cream 114 gm] 1 applic TP DAILY jar 06/12/19 Nitroglycerin [Nitro-Dur 15 mg (0.6 mg/1 Hr) Transderm Patch] 1 each TD DAILY patch.td24 06/12/19 Ondansetron [Zofran Odt 4 mg Tablet] 4 mg PO Q6HP PRN 7 Days #30 tab.rapdis 06/12/19 Pantoprazole Sodium [Protonix [address] Tablet] 20 mg PO QAM 30 Days #30 tablet.dr 06/12/19 Quetiapine Fumarate [Seroquel 100 mg Tablet] 150 mg PO QHS tablet 06/12/19 Sucralfate [Carafate 1 gm Tablet] 1 gm PO ACHS tablet 06/12/19 Acetaminophen [Tylenol 325 mg Tablet] 650 mg PO Q6HP PRN 06/17/19 Baclofen [Baclofen 10 mg Tablet] 10 mg PO TIDP PRN 06/17/19 Amoxicillin/Potassium Clav [Augmentin 875-125 Tablet] 1 tab PO Q12 #3 tablet 06/23/19 Bumetanide [Bumex 1 mg Tablet] 1 tab PO DAILY #60 tab 06/23/19 Calcitriol [Rocaltrol 0.25 mcg Capsule] 0.25 mcg PO DAILY capsule 06/23/19 Isosorbide Mononitrate [Imdur 30 mg Tablet.er] 30 mg PO DAILY #30 tab.er.24h 06/23/19 History of Present Illiness History of Present Illness: JUJU ANDRADE is a 58 year old male with past medical history as noted below who presents after 1 day history of progressive confusion, rectal bleeding, shortness of breath, and chronic stasis dermatitis of his feet and has become painful, noted by the nurses at his nursing facility, prompted EMS transport to ED for further evaluation. Patient is an extremely poor historian due to severe dementia and chronic brain damage from reported long-term substance abuse. On admission, patient has volume overload noted on chest x-ray, BNP over 15,000, crackles on exam. Nephrology consulted on admission by ED as patient has required dialysis for volume removal in the past. Creatinine is also notably elevated at 3.64 on admission which is well above his baseline in the twos. Hemoglobin is 10 on admission which appears to be actually above his baseline based on previous records. No active bleeding seen on admission. Per his home medication list, there does not appear to be any anticoagulants listed. Hospital Course Hospital Course: (1) Acute exacerbation of congestive heart failure Qualifiers: Heart failure type: unspecified Qualified Code(s): I50.9 - Heart failure, unspecified Is this a current diagnosis for this admission?: Yes Plan: Acute on chronic combined systolic and diastolic CHF exacerbation Previous admission echocardiogram reviewed which showed EF 25% and DD1 with severe global hypokinesis, pulmonary hypertension. Chest x-ray showed volume overload on admission BNP markedly elevated over 15,000 Received IV Bumex 1 mg twice daily for several days. Diuretic transition to Bumex 1 mg twice daily p.o. Discontinue Lasix. -Continue nitroglycerin. Valsartan discontinued given renal function. Substitute with Imdur and monitor blood pressures. -Outpatient follow-up with Dr. Santana [cardiology] (2) Community acquired pneumonia Qualifiers: Laterality: unspecified laterality Qualified Code(s): J18.9 - Pneumonia, unspecified organism Is this a current diagnosis for this admission?: Yes Plan: Some amount of pneumonia noted on chest CT Received 4 days of ceftriaxone/azithromycin. Continue 3 days of Augmentin to complete 7 days of therapy. (3) GI bleed Qualifiers: GI bleed type/associated pathology: unspecified gastrointestinal hemorrhage type Qualified Code(s): K92.2 - Gastrointestinal hemorrhage, unspecified Is this a current diagnosis for this admission?: Yes Plan: Hemoccult positive; no further reported rectal bleeding No active bleeding observed throughout admission Hemoglobin is stable. Needs GI outpatient follow-up after discharge for usual colorectal cancer screening. (4) Acute kidney injury superimposed on chronic kidney disease Is this a current diagnosis for this admission?: Yes Plan: -Creatinine improved with diuresis from 3.6 on admission to 2.0. Continue Bumex. Outpatient nephrology follow-up. (5) COPD (chronic obstructive pulmonary disease) Qualifiers: COPD type: chronic bronchitis Chronic bronchitis type: unspecified Qualified Code(s): J42 - Unspecified chronic bronchitis Is this a current diagnosis for this admission?: Yes Plan: -No active wheezing. Likely not in exacerbation. Patient does have chronic hypoxic respiratory failure secondary to COPD and pulmonary hypertension. -Albuterol PRN. LABA/LAMA/ICS (5) chronic hypoxic respiratory failure Likely secondary to pulmonary hypertension and underlying COPD. Oxygen supplementation via nasal cannula as needed. Goal SPO2 of 89% and above. Physical Exam Vital Signs: Temp Pulse Resp BP Pulse Ox 98.6 F 66 20 120/55 L 95 06/23/19 07:28 06/23/19 07:28 06/23/19 07:28 06/23/19 07:28 06/23/19 07:28 Intake & Output 06/22/19 06/23/19 06/24/19 06:59 06:59 06:59 Intake Total 2445 2130 50 Output Total 3175 4050 Balance -730 -1920 50 Weight 99.9 kg 99.1 kg General appearance: PRESENT: no acute distress, cooperative Neck exam: ABSENT: JVD Respiratory exam: PRESENT: crackles - minimal, symmetrical, unlabored. ABSENT: accessory muscle use, retraction, tachypnea, wheezes GI/Abdominal exam: PRESENT: soft. ABSENT: rebound, rigid, tenderness Musculoskeletal exam: PRESENT: ambulatory Neurological exam: PRESENT: alert, awake, oriented to person, oriented to place, oriented to time, oriented to situation Results Laboratory Results: WBC 9.6 10^3/uL (4.0-10.5) 06/23/19 05:28 RBC 3.27 10^6/uL (4.35-5.55) L 06/23/19 05:28 Hgb 8.9 g/dL (13.5-17.0) L 06/23/19 05:28 Hct 26.7 % (37.9-51.0) L 06/23/19 05:28 MCV 82 fl (80-97) 06/23/19 05:28 MCH 27.3 pg (27.0-33.4) 06/23/19 05:28 MCHC 33.3 g/dL (32.0-36.0) 06/23/19 05:28 RDW 23.1 % (11.5-14.0) H 06/23/19 05:28 Plt Count 307 10^3/uL (150-450) 06/23/19 05:28 Lymph % (Auto) 13.0 % (13-45) 06/23/19 05:28 [place] % (Auto) 9.0 % (3-13) 06/23/19 05:28 Eos % (Auto) 5.5 % (0-6) 06/23/19 05:28 Baso % (Auto) 1.4 % (0-2) 06/23/19 05:28 Absolute Neuts (auto) 6.8 10^3/uL (1.7-8.2) 06/23/19 05:28 Absolute Lymphs (auto) 1.2 10^3/uL (0.5-4.7) 06/23/19 05:28 Absolute Monos (auto) 0.9 10^3/uL (0.1-1.4) 06/23/19 05:28 Absolute Eos (auto) 0.5 10^3/uL (0.0-0.6) 06/23/19 05:28 Absolute Basos (auto) 0.1 10^3/uL (0.0-0.2) 06/23/19 05:28 Seg Neutrophils % 71.1 % (42-78) 06/23/19 05:28 Platelet Comment ADEQUATE 06/18/19 05:21 Polychromasia SLIGHT 06/18/19 05:21 Hypochromasia SLIGHT 06/17/19 11:25 Poikilocytosis SLIGHT 06/18/19 05:21 Anisocytosis 3+ 06/18/19 05:21 Target Cells SLIGHT 06/18/19 05:21 Tear Drop Cells SLIGHT 06/17/19 11:25 Ovalocytes SLIGHT 06/17/19 11:25 PT 16.2 SEC (11.4-15.4) H 06/17/19 11:25 INR 1.29 06/17/19 11:25 APTT 41.0 SEC (23.5-35.8) H 06/17/19 11:25 Carbonic Acid 1.38 mmol/L (1.05-1.35) H 06/18/19 14:35 HCO3/H2CO3 Ratio 21:1 06/18/19 14:35 ABG pH 7.43 (7.35-7.45) 06/18/19 14:35 ABG pCO2 46.0 mmHg (35-45) H 06/18/19 14:35 ABG pO2 63.6 mmHg (80-100) L 06/18/19 14:35 ABG HCO3 29.9 mmol/L (20-24) H 06/18/19 14:35 ABG Total CO2 31.3 mmol/L (23-27) H 06/18/19 14:35 ABG O2 Saturation 92.7 % (94-98) L 06/18/19 14:35 ABG Base Excess 4.9 mmol/L 06/18/19 14:35 FiO2 6 06/18/19 14:35 Sodium 135.2 mmol/L (137-145) L 06/23/19 05:28 Potassium 3.9 mmol/L (3.6-5.0) 06/23/19 05:28 Chloride 100 mmol/L (98-107) 06/23/19 05:28 Carbon Dioxide 26 mmol/L (22-30) 06/23/19 05:28 Anion Gap 9 (5-19) 06/23/19 05:28 BUN 51 mg/dL (7-20) H 06/23/19 05:28 Creatinine 2.03 mg/dL (0.52-1.25) H 06/23/19 05:28 Est GFR ( Amer) 41 (>60) L 06/23/19 05:28 Est GFR (MDRD) Non-Af 34 (>60) L 06/23/19 05:28 Glucose 75 mg/dL (75-110) 06/23/19 05:28 POC Glucose 84 mg/dL (70-110) 06/23/19 07:29 Calcium 9.1 mg/dL (8.4-10.2) 06/23/19 05:28 Phosphorus 5.4 mg/dL (2.5-4.5) H 06/18/19 05:21 Magnesium 2.1 mg/dL (1.6-2.3) 06/23/19 05:28 Total Bilirubin 1.4 mg/dL (0.2-1.3) H 06/17/19 11:25 Direct Bilirubin 0.5 mg/dL (0.0-0.4) H 06/17/19 11:25 Neonat Total Bilirubin Not Reportable 06/17/19 11:25 Neonat Direct Bilirubin Not Reportable 06/17/19 11:25 Neonat Indirect Bili Not Reportable 06/17/19 11:25 GGT 230 U/L (8-78) H 06/20/19 04:35 AST 21 U/L (17-59) 06/17/19 11:25 ALT 13 U/L (<50) 06/17/19 11:25 Alkaline Phosphatase 273 U/L (38-126) H 06/17/19 11:25 Ammonia < 8.7 umol/L (9-33) L 06/17/19 21:17 Creatine Kinase < 20 U/L (55-170) L 06/17/19 11:25 Troponin I 0.019 ng/mL 06/17/19 11:25 NT-Pro-B Natriuret Pep 56936 pg/mL (<125) H 06/17/19 11:25 Total Protein 7.2 g/dL (6.3-8.2) 06/17/19 11:25 Albumin 3.4 g/dL (3.5-5.0) L 06/17/19 11:25 TSH 8.66 uIU/mL (0.47-4.68) H 06/18/19 05:21 PTH Intact 166.2 pg/mL (10.0-65.0) H 06/19/19 05:51 Urine Color YELLOW 06/17/19 14:00 Urine Appearance CLEAR 06/17/19 14:00 Urine pH 8.0 (5.0-9.0) 06/17/19 14:00 Ur Specific [place] 1.006 06/17/19 14:00 Urine Protein NEGATIVE mg/dL (NEGATIVE) 06/17/19 14:00 Urine Glucose (UA) NEGATIVE mg/dL (NEGATIVE) 06/17/19 14:00 Urine Ketones NEGATIVE mg/dL (NEGATIVE) 06/17/19 14:00 Urine Blood NEGATIVE (NEGATIVE) 06/17/19 14:00 Urine Nitrite NEGATIVE (NEGATIVE) 06/17/19 14:00 Urine Bilirubin NEGATIVE (NEGATIVE) 06/17/19 14:00 Urine Urobilinogen NEGATIVE mg/dL (<2.0) 06/17/19 14:00 Ur Leukocyte Esterase NEGATIVE (NEGATIVE) 06/17/19 14:00 Urine WBC (Auto) 0 /HPF 06/17/19 14:00 Urine RBC (Auto) 0 /HPF 06/17/19 14:00 Squamous Epi Cells Auto <1 /HPF 06/17/19 14:00 Urine Ascorbic Acid NEGATIVE (NEGATIVE) 06/17/19 14:00 COVID-19 Source NASOPHARYNGEAL 06/20/19 10:15 COVID-19 (JOE) NOT DETECTED 06/20/19 10:15 Influenza A (Rapid) NEGATIVE (NEGATIVE) 06/17/19 13:25 Influenza B (Rapid) NEGATIVE (NEGATIVE) 06/17/19 13:25 Group A Strep Rapid NEGATIVE (NEGATIVE) 06/17/19 13:25 06/17/19 06/17/19 11:25 11:25 Troponin I 0.019 NT-Pro-B Natriuret Pep 63696 H Impressions: Abdomen/Pelvis CT 06/17/19 11:29 IMPRESSION: Small amount of free fluid improved from prior exam. Bibasilar airspace disease is again noted mildly improved from prior exam as well. Other findings as described. Chest X-Ray 06/17/19 11:29 IMPRESSION: Findings are most consistent with pulmonary edema. Infectious or inflammatory process is thought be less likely. Head CT 06/17/19 11:29 IMPRESSION: MILD CHRONIC CHANGES OF ATROPHY AND MICROVASCULAR ISCHEMIA. NO ACUTE PROCESS. EVIDENCE OF ACUTE STROKE: NO. Chest X-Ray 06/18/19 11:36 IMPRESSION: No significant interval change in the chest with diffuse bilateral alveolar infiltrates. Chest CT 06/19/19 00:00 IMPRESSION: Patchy diffuse peripheral alveolar and interstitial infiltrates worrisome for pneumonia. This is most confluent in the left upper lobe. Chest X-Ray 06/19/19 07:00 IMPRESSION: BILATERAL AIRSPACE DISEASE. MILD CARDIOMEGALY. NO SIGNIFICANT CHANGE. Plan Time Spent: Greater than 30 Minutes Stroke Is this a Stroke Patient?: No Acute Heart Failure - Is this a Heart Failure Patient?: Yes Documentation of LVEF assessment?: Yes LVEF < 40%?: Yes-if yes answer questions a through e a) Discharged on ACEI?: No, document contraindications Reason(s) not discharge on ACEI: Impaied/worsening renal function b) Discharges on ARB?: No-document contraindications Reason(s) not discharged on ARB: Impaired/worsening renal functions c) Discharged on ARNI?: No-Document Contraindications Reason(s) not discharged on ARNI: Impaired/worsening renal functions d) Discharged on evidence-based Beta laurie(carvedilol, sustained release metoprolol succinate, or bisoprolol)?: Yes e) For LVEF <35%, discharged on Aldosterone antagonist?: No-document contraincations Reason(s) not discharged on Aldosterone antagonist for LVEF < 35%: Renal dysfunction (creatinine >2.5 mg/dL in men or 2.0 mg/dL in women) 3. Anticoagulant therapy for permanect/persistent/paraoxysmal Afib or Aflutter: N/A
[2019-06-23] MEDS: AZITHROMYCIN 500 MG in DEXTROSE 5%-WATER 250 ML IV SCH (11:57)
[2019-06-23] MEDS: GABAPENTIN 300 MG CAPSULE PO SCH (11:57)
--- NOTE | 2019-06-23 15:36 | Progress Note ---
Provider Note Provider Note: I was informed that [facility] be [facility] despite patient having 1 negative test already. I have contacted telecommunications network planner who will reach out to [facility] about getting patient retested. In the meantime, will continue Augmentin for treatment of patient's community-acquired pneumonia. Continue Bumex for treatment of acute on chronic CHF. Vital signs remained stable. Patient is in no distress.
[2019-06-23] MEDS: ISOSORBIDE MONONITRATE 30 MG TAB.ER.24H PO SCH (17:08)
[2019-06-23] MEDS: BUMETANIDE 1 MG TABLET PO SCH (17:08)
[2019-06-23] MEDS: QUETIAPINE FUMARATE 100 MG TABLET PO SCH (21:30)
[2019-06-24] MEDS: INSULIN LISPRO 100 UNIT/ML 3 ML VIAL SUBCUT SCH ×4 (07:46→22:11)
[2019-06-24] MEDS: PANTOPRAZOLE SODIUM 20 MG TABLET.DR PO SCH (08:07)
[2019-06-24] MEDS: SUCRALFATE 1 GM TABLET PO SCH ×4 (08:07→22:10)
[2019-06-24] MEDS: MULTIVITAMIN TABLET PO SCH (09:20)
[2019-06-24] MEDS: GABAPENTIN 300 MG CAPSULE PO SCH (09:20)
[2019-06-24] MEDS: VITAMIN B COMPLEX TABLET PO SCH (09:20)
[2019-06-24] MEDS: MINERAL OIL/PETROLATUM,WHITE CREAM 114 GM TP SCH (09:20)
[2019-06-24] MEDS: NITROGLYCERIN 15 MG (0.6 MG/1 HR) PATCH.TD24 TD SCH (09:20)
[2019-06-24] MEDS: BUMETANIDE 1 MG TABLET PO SCH ×2 (09:21→17:05)
[2019-06-24] MEDS: ISOSORBIDE MONONITRATE 30 MG TAB.ER.24H PO SCH (09:22)
[2019-06-24] MEDS: THIAMINE HCL 100 MG TABLET PO SCH (09:22)
[2019-06-24] MEDS: CALCITRIOL 0.25 MCG CAPSULE PO SCH (09:22)
[2019-06-24] MEDS: METOPROLOL SUCCINATE 25 MG TAB.SR.24H PO SCH (09:22)
[2019-06-24] MEDS: FLUTICASONE/UMECLIDIN/VILANTER 100-62.5-25 MCG/DOSE IH SCH (09:23)
[2019-06-24] MEDS: AMOXICILLIN TR/POT CLAVULANATE 875-125 MG TAB PO SCH ×2 (09:27→22:10)
--- NOTE | 2019-06-24 14:33 | Progress Note ---
Provider Note Provider Note: Patient doing well today. Has no complaints besides chronic foot pain from his neuropathy. Vital signs remained stable. Patient not in any distress. Currently awaiting repeat coronavirus test for discharge to [facility]. Refer to transfer summary. Patient has 2 more days of Augmentin for treatment of pneumonia.
[2019-06-24] MEDS: QUETIAPINE FUMARATE 100 MG TABLET PO SCH (22:10)
[2019-06-25] MEDS: INSULIN LISPRO 100 UNIT/ML 3 ML VIAL SUBCUT SCH ×3 (07:57→16:23)
[2019-06-25] MEDS: PANTOPRAZOLE SODIUM 20 MG TABLET.DR PO SCH (08:19)
[2019-06-25] MEDS: SUCRALFATE 1 GM TABLET PO SCH ×3 (08:19→15:51)
[2019-06-25] MEDS: ISOSORBIDE MONONITRATE 30 MG TAB.ER.24H PO SCH (09:57)
[2019-06-25] MEDS: BUMETANIDE 1 MG TABLET PO SCH (09:57)
[2019-06-25] MEDS: GABAPENTIN 300 MG CAPSULE PO SCH (09:57)
[2019-06-25] MEDS: THIAMINE HCL 100 MG TABLET PO SCH (09:57)
[2019-06-25] MEDS: VITAMIN B COMPLEX TABLET PO SCH (09:57)
[2019-06-25] MEDS: METOPROLOL SUCCINATE 25 MG TAB.SR.24H PO SCH (09:57)
[2019-06-25] MEDS: MULTIVITAMIN TABLET PO SCH (09:57)
[2019-06-25] MEDS: FLUTICASONE/UMECLIDIN/VILANTER 100-62.5-25 MCG/DOSE IH SCH (09:58)
[2019-06-25] MEDS: AMOXICILLIN TR/POT CLAVULANATE 875-125 MG TAB PO SCH (09:58)
[2019-06-25] MEDS: NITROGLYCERIN 15 MG (0.6 MG/1 HR) PATCH.TD24 TD SCH (09:58)
[2019-06-25] MEDS: MINERAL OIL/PETROLATUM,WHITE CREAM 114 GM TP SCH (09:58)
[2019-06-25] MEDS: CALCITRIOL 0.25 MCG CAPSULE PO SCH (09:59)
[2019-06-25 16:43] VITALS: BP 145/59
== END 2019-06-25 17:17 | DRG 682 ==
LOC: ER 11:12 → EH 15:07 → 4N 19:36 → 5 06-20 12:20 → 4S 06-22 19:21
PROVIDERS: ADMIT Internal Medicine; ATTEND Family Medicine
DX: N17.9 Acute kidney failure, unspecified (principal); J18.9 Pneumonia, unspecified organism; J96.21 Acute and chronic respiratory failure with hypoxia; I50.43 Acute on chronic combined systolic (congestive) and diastolic (congestive) heart failure; G92 Toxic encephalopathy; I13.0 Hypertensive heart and chronic kidney disease with heart failure and stage 1 through stage 4 chronic kidney disease, or unspecified chronic kidney disease; G93.1 Anoxic brain damage, not elsewhere classified; K92.2 Gastrointestinal hemorrhage, unspecified; E87.1 Hypo-osmolality and hyponatremia; N18.4 Chronic kidney disease, stage 4 (severe); I27.20 Pulmonary hypertension, unspecified; D63.1 Anemia in chronic kidney disease; F03.90 Unspecified dementia, unspecified severity, without behavioral disturbance, psychotic disturbance, mood disturbance, and anxiety; Z95.1 Presence of aortocoronary bypass graft; Z95.2 Presence of prosthetic heart valve; J44.9 Chronic obstructive pulmonary disease, unspecified; I87.2 Venous insufficiency (chronic) (peripheral); I25.10 Atherosclerotic heart disease of native coronary artery without angina pectoris; E78.5 Hyperlipidemia, unspecified; K21.9 Gastro-esophageal reflux disease without esophagitis; M19.90 Unspecified osteoarthritis, unspecified site; F31.9 Bipolar disorder, unspecified; I25.5 Ischemic cardiomyopathy; E61.1 Iron deficiency; H91.90 Unspecified hearing loss, unspecified ear; G62.9 Polyneuropathy, unspecified; F17.210 Nicotine dependence, cigarettes, uncomplicated; Z79.899 Other long term (current) drug therapy; Z88.8 Allergy status to other drugs, medicaments and biological substances; Z03.818 Encounter for observation for suspected exposure to other biological agents ruled out
CPT/HCPCS: 36415; 36600; 70450; 71045; 71250; 74176; 80048; 80053; 81001; 82140; 82270; 82550; 82728; 82803; 82962; 82977; 83540; 83550; 83735; 83880; 83970; 84100; 84443; 84484; 85025; 85027; 85610; 85730; 87040; 87070; 87635; 87804; 87880; 93005; 93010; 94640; 96361; 96374; 99291; 99292; J0456; J0696; J1439; J1644; J3370; J3490; J7030; J7050; J7060; Q5106

== ENCOUNTER → 2019-08-15 | Outpatient (CLI) | payer MEDICARE, MEDICAID ==
[2019-08-15 10:03] LABS: ABSOLUTE BASOPHILS # (AUTO) 0.1 10^3/uL (0.0-0.2); ABSOLUTE EOSINOPHILS # (AUTO) 0.1 10^3/uL (0.0-0.6); ABSOLUTE MONOCYTES (AUTO) 0.6 10^3/uL (0.1-1.4); ABSOLUTE NEUT (AUTO) 4.2 10^3/uL (1.7-8.2); BASOPHILS % (AUTO) 1.5 % (0-2); EOSINOPHILS % (AUTO) 1.8 % (0-6); HEMOGLOBIN 11.7 g/dL (13.5-17.0); MEAN CORPUSCULAR HEMOGLOBIN 27.4 pg (27.0-33.4); MEAN CORPUSCULAR HGB CONC 32.6 g/dL (32.0-36.0); MEAN CORPUSCULAR VOLUME 84 fl (80-97); MONOCYTES % (AUTO) 10.6 % (3-13); PLATELET COUNT 240 10^3/uL (150-450); RED BLOOD COUNT 4.29 10^6/uL (4.35-5.55); RED CELL DISTRIBUTION WIDTH 22.2 % (11.5-14.0); SEGMENTED NEUTROPHILS % (AUTO) 69.1 % (42-78); TOTAL CELLS COUNTED % (AUTO) 100 %; WHITE BLOOD COUNT 6.1 10^3/uL (4.0-10.5)
[2019-08-15 10:31] LABS: ALBUMIN 3.9 g/dL (3.5-5.0); ANION GAP 10 (5-19); BLOOD UREA NITROGEN 28 mg/dL (7-20); CALCIUM 9.6 mg/dL (8.4-10.2); CARBON DIOXIDE 19 mmol/L (22-30); CHLORIDE 107 mmol/L (98-107); GLUCOSE 105 mg/dL (75-110); PHOSPHORUS 4.7 mg/dL (2.5-4.5); POTASSIUM 4.7 mmol/L (3.6-5.0)
== END ==
LOC: OD 09:27
PROVIDERS: ATTEND Internal Medicine Nephrology
DX: N17.9 Acute kidney failure, unspecified (principal); N18.4 Chronic kidney disease, stage 4 (severe); J44.9 Chronic obstructive pulmonary disease, unspecified
CPT/HCPCS: 36415; 80069; 82306; 83970; 85025